=== PATIENT | female | born 1975 | race Caucasian/White ===

== ENCOUNTER 2016-03-18 10:53 | Emergency (ER) | payer MEDICARE, MEDICAID ==
[~2016-03-18 10:53] MED LIST: /ACETCOD2T PO; ABIL10TA; ABIL10TA OR; ABIL5TAB; AMOX500T PO; ASPI81CH PO; COLA50CA3 PO; DRIS1CAP PO; GLUC500T PO; HYDR25TA8; LITHIUM PO; NO HOME MEDICATIONS; No Home Meds; PRIL20CA OR; TOPA100T PO; TRAZ100T; TRAZ100T OR; VITAMIN D50000 UNT; ZOLO100T; no home medications; no home meds
[2016-03-18] MEDS ORDERED: LIDOCAINE 2% MDV 20 ML VIAL As Ordered ONE (11:25)
--- NOTE | 2016-03-18 11:59 | EDDOCDS ---
Physician Documentation [facility] Name: Carla Ramirez Age: 40 yrs Sex: Female : 1975 Arrival Date: 03/18/2016 Time: 10:53 Bed TR8 Private MD: Disposition: 03/18/16 11:58 Patient has left against medical advice. - Patients states they are going to Home/Self Care. - Condition is Stable. Medication Reconciliation, Local Pharmacy Hours form. Follow up: Private Physician; When: Call to arrange an appointment; Reason: Recheck today's complaints. Historical: - Allergies: no known allergies; - Home Meds: 1. none - PMHx: Bipolar disorder; Depression; Migraine Headaches; Obesity; - PSHx: Hernia repair- Umbilical; ; Tonsillectomy; - Social history: Smoking status: Patient uses tobacco products, light tobacco smoker. No barriers to communication noted, The patient speaks fluent Chinese, Speaks appropriately for age. - : The pt / caregiver states he / she is not on anticoagulants. Home medication list is obtained from the patient. - Exposure Risk Screening:: None identified. PRODUCT TESTER: 03/18 10:56 LMP 03/05/2016 bcj Vital Signs: 10:55 BP 189 / 105; Pulse 99; Resp 18; Temp 98.0; Pulse Ox 98% ; Weight 113.4 kg / 250 lbs; elp Height 5 ft. 2 in. (157.48 cm); Pain 10/10; 10:55 Body Mass Index 45.73 (113.40 kg, 157.48 cm) elp MDM: 11:16 Recheck B/P ordered. ef1 11:16 Misc. Nursing Order ordered. ef1 11:24 Lidocaine 20 mg/mL (2 %) 10 ml Infiltration once; to bedside ordered. jk8 Administered Medications: 11:26 Drug: Lidocaine 10 ml [lidocaine 20 mg/mL (2 %) injection solution (10 mL)] {Note: bcj administered by PA.} Route: Infiltration; Signatures: Mukund Aviles, RN RN Keri Montoya PA-C PA-C ef1 Annelise Jackson RN RN ms18 Bryan Razo PA-C PA-C jk8 MTDD
--- NOTE | 2016-03-18 11:59 | EDDOCDS ---
Nurse's Notes [facility] Name: Carla Ramirez Age: 40 yrs Sex: Female : 1975 Arrival Date: 03/18/2016 Time: 10:53 Bed TR8 Private MD: Diagnosis: Presentation: 03/18 10:55 Presenting complaint: Patient states: c/o left sided tooth pain - hurts to chew on same bcj side. part of tooth broken off. Adult Sepsis Screening: The patient does not have new or worsening altered mentation. Patient's respiratory rate is less than 22. Systolic blood pressure is greater than 100. Patient has a qSOFA score of 0- Negative Sepsis Screen. Suicide/Homicide risk assessment- the patient denies having any suicidal and/or homicidal ideations and does not present with any other emotional, behavioral or mental health complaints. Status: Patient is not a multimedia services manager or dependent. Transition of care: patient was not received from another setting of care. 10:55 Acuity: MONALISA Level 5 bcj 10:55 Method Of Arrival: Walkin/Carried/Asstd bcj Triage Assessment: 10:56 General: Appears uncomfortable, Behavior is cooperative. Pain: Location: mouth Pain bcj currently is 10 out of 10 on a pain scale. HIV screening NA for this visit Offered previously. EENT: Reports pain in mouth. HARBOUR MASTER: 10:56 LMP 03/05/2016 bcj Historical: - Allergies: no known allergies; - Home Meds: 1. none - PMHx: Bipolar disorder; Depression; Migraine Headaches; Obesity; - PSHx: Hernia repair- Umbilical; ; Tonsillectomy; - Social history: Smoking status: Patient uses tobacco products, light tobacco smoker. No barriers to communication noted, The patient speaks fluent Latvian, Speaks appropriately for age. - : The pt / caregiver states he / she is not on anticoagulants. Home medication list is obtained from the patient. - Exposure Risk Screening:: None identified. Assessment: 11:56 General: Appears obese, uncomfortable. Pain: Location: mouth. Neurological: No deficits ms18 noted. Respiratory: No deficits noted. Derm: Skin is pink, warm & dry. Vital Signs: 10:55 BP 189 / 105; Pulse 99; Resp 18; Temp 98.0; Pulse Ox 98% ; Weight 113.4 kg; Height 5 elp ft. 2 in. (157.48 cm); Pain 12/12; 10:55 Body Mass Index 45.73 (113.40 kg, 157.48 cm) [facility] Vitals: 10:55 Log In Time: March 18, 2016 at 10:[address]. [facility] ED Course: 10:54 Patient visited by Meche Ruiz PCA. elp 10:54 Patient moved to Waiting elp 10:55 Patient visited by Meche Ruiz PCA. elp 10:55 Patient moved to Pre RCE elp 10:56 Triage Initiated [facility] 10:57 Patient visited by Mukund Aviles RN. bcj 11:03 Patient moved to Triage 1 rs6 11:15 Keri Olivo PA-C is PHCP. ef1 11:15 Audelia Albrecht MD is Attending Physician. ef1 11:16 Patient visited by Keri Olivo PA-C. ef1 11:22 Pt greeted and oriented to ED. Patient advised of names of staff involved in care, rs6 location of call dyer, wait times and NPO status. attempted to recheck pt's blood pressure manually and pt ripped the cuff off of her arm screaming to "give me something for the fucking pain and to get me some pain medicine for her pain" RONNIE Olivo notified. 11:23 Bryan R[facility]C [facility] jk8 11:23 Audelia Albrecht MD is Attending Physician. jk8 11:55 Patient visited by Annelise Jackson RN. ms18 11:56 Patient moved to 8 ms18 Administered Medications: 11:26 Drug: Lidocaine 10 ml [lidocaine 20 mg/mL (2 %) injection solution (10 mL)] {Note: bcj administered by PA.} Route: Infiltration; Order Results: There are currently no results for this order. Outcome: 11:56 The patient is leaving AMA: Left before signing form, Other notified steaming machine operator and ms18 provider aware of pt leaving ama. 11:58 Patient left against medical advice. ms18 11:58 Patient left the ED. ms18 Signatures: Mukund Aviles RN RN [facility] Keri Olivo PA-C PA-C ef1 Meche Ruiz PCA BALANCE SCREWHEAD POLISHER elp Annelise JacksonYUSEF RN ms18 Yazmin Bates, BALANCE SCREWHEAD POLISHER BALANCE SCREWHEAD POLISHER rs6 Bryan Razo, YEE FRAIRE jk8 MTDD
--- NOTE | 2016-03-20 12:59 | EDDOCDS ---
Physician Documentation [facility] Name: Carla Ramirez Age: 40 yrs Sex: Female : 1975 Arrival Date: 03/18/2016 Time: 10:53 Bed TR8 Private MD: Disposition: 03/18/16 11:58 Patient has left against medical advice. - Patients states they are going to Home/Self Care. - Condition is Stable. Medication Reconciliation, Local Pharmacy Hours form. Follow up: Private Physician; When: Call to arrange an appointment; Reason: Recheck today's complaints. Historical: - Allergies: no known allergies; - Home Meds: 1. none - PMHx: Bipolar disorder; Depression; Migraine Headaches; Obesity; - PSHx: Hernia repair- Umbilical; ; Tonsillectomy; - Social history: Smoking status: Patient uses tobacco products, light tobacco smoker. No barriers to communication noted, The patient speaks fluent Arabic, Speaks appropriately for age. - : The pt / caregiver states he / she is not on anticoagulants. Home medication list is obtained from the patient. - Exposure Risk Screening:: None identified. CARROT BUNCHER: 03/18 10:56 LMP 03/05/2016 [facility] Vital Signs: 10:55 BP 189 / 105; Pulse 99; Resp 18; Temp 98.0; Pulse Ox 98% ; Weight 113.4 kg / 250 lbs; elp Height 5 ft. 2 in. (157.48 cm); Pain 10/10; 10:55 Body Mass Index 45.73 (113.40 kg, 157.48 cm) elp MDM: 11:16 Recheck B/P ordered. ef1 11:16 Misc. Nursing Order ordered. ef1 11:24 Lidocaine 20 mg/mL (2 %) 10 ml Infiltration once; to bedside ordered. jk8 14:46 Refusal of Services was scanned into [employer] and attached to record. gb 03/19 08:36 T-Sheet-- Draft Copy was scanned into [employer] and attached to record. [facility] Administered Medications: 03/18 11:26 Drug: Lidocaine 10 ml [lidocaine 20 mg/mL (2 %) injection solution (10 mL)] {Note: bcj administered by PA.} Route: Infiltration; Signatures: Mukund Aviles RN RN Jahaira Gomes, Reg Reg gb Keri Olivo PA-C PA-C ef1 Annelise Jackson,YUSEF RN ms18 Bryan Razo PA-C PA-C jk8 Audelia Anaya The chart was reviewed and I authenticate all verbal orders and agree with the evaluation and treatment provided.Attachments: 03/19 08:36 T-Sheet-- Draft Copy [facility] Chart Complete MTDD
--- NOTE | 2016-03-20 12:59 | EDDOCDS ---
Physician Documentation [facility] Name: Carla Ramirez Age: 40 yrs Sex: Female : 1975 Arrival Date: 03/18/2016 Time: 10:53 Bed TR8 Private MD: Disposition: 03/18/16 11:58 Patient has left against medical advice. - Patients states they are going to Home/Self Care. - Condition is Stable. Medication Reconciliation, Local Pharmacy Hours form. Follow up: Private Physician; When: Call to arrange an appointment; Reason: Recheck today's complaints. Historical: - Allergies: no known allergies; - Home Meds: 1. none - PMHx: Bipolar disorder; Depression; Migraine Headaches; Obesity; - PSHx: Hernia repair- Umbilical; ; Tonsillectomy; - Social history: Smoking status: Patient uses tobacco products, light tobacco smoker. No barriers to communication noted, The patient speaks fluent Slovak, Speaks appropriately for age. - : The pt / caregiver states he / she is not on anticoagulants. Home medication list is obtained from the patient. - Exposure Risk Screening:: None identified. FISH BUTCHER: 03/18 10:56 LMP 03/05/2016 [facility] Vital Signs: 10:55 BP 189 / 105; Pulse 99; Resp 18; Temp 98.0; Pulse Ox 98% ; Weight 113.4 kg / 250 lbs; elp Height 5 ft. 2 in. (157.48 cm); Pain 10/10; 10:55 Body Mass Index 45.73 (113.40 kg, 157.48 cm) elp MDM: 11:16 Recheck B/P ordered. ef1 11:16 Misc. Nursing Order ordered. ef1 11:24 Lidocaine 20 mg/mL (2 %) 10 ml Infiltration once; to bedside ordered. jk8 14:46 Refusal of Services was scanned into [employer] and attached to record. gb 03/19 08:36 T-Sheet-- Draft Copy was scanned into [employer] and attached to record. [facility] Administered Medications: 03/18 11:26 Drug: Lidocaine 10 ml [lidocaine 20 mg/mL (2 %) injection solution (10 mL)] {Note: bcj administered by PA.} Route: Infiltration; Signatures: Mukund Aviles RN RN Jahaira Gomes, Reg Reg gb Keri Olivo PA-C PA-C ef1 Annelise Jackson,YUSEF RN ms18 Bryan Razo PA-C PA-C jk8 Audelia Anaya The chart was reviewed and I authenticate all verbal orders and agree with the evaluation and treatment provided.Attachments: 03/19 08:36 T-Sheet-- Draft Copy [facility] Chart Complete MTDD
--- NOTE | 2016-03-20 12:59 | EDDOCDS ---
Nurse's Notes [facility] Name: Carla Ramirez Age: 40 yrs Sex: Female : 1975 Arrival Date: 03/18/2016 Time: 10:53 Bed TR8 Private MD: Diagnosis: Presentation: 03/18 10:55 Presenting complaint: Patient states: c/o left sided tooth pain - hurts to chew on same bcj side. part of tooth broken off. Adult Sepsis Screening: The patient does not have new or worsening altered mentation. Patient's respiratory rate is less than 22. Systolic blood pressure is greater than 100. Patient has a qSOFA score of 0- Negative Sepsis Screen. Suicide/Homicide risk assessment- the patient denies having any suicidal and/or homicidal ideations and does not present with any other emotional, behavioral or mental health complaints. Status: Patient is not a service employee or dependent. Transition of care: patient was not received from another setting of care. 10:55 Acuity: MONALISA Level 5 bcj 10:55 Method Of Arrival: Walkin/Carried/Asstd bcj Triage Assessment: 10:56 General: Appears uncomfortable, Behavior is cooperative. Pain: Location: mouth Pain bcj currently is 10 out of 10 on a pain scale. HIV screening NA for this visit Offered previously. EENT: Reports pain in mouth. REGISTERED DIETETIC TECHNICIAN: 10:56 LMP 03/05/2016 bcj Historical: - Allergies: no known allergies; - Home Meds: 1. none - PMHx: Bipolar disorder; Depression; Migraine Headaches; Obesity; - PSHx: Hernia repair- Umbilical; ; Tonsillectomy; - Social history: Smoking status: Patient uses tobacco products, light tobacco smoker. No barriers to communication noted, The patient speaks fluent Faroese, Speaks appropriately for age. - : The pt / caregiver states he / she is not on anticoagulants. Home medication list is obtained from the patient. - Exposure Risk Screening:: None identified. Assessment: 11:56 General: Appears obese, uncomfortable. Pain: Location: mouth. Neurological: No deficits ms18 noted. Respiratory: No deficits noted. Derm: Skin is pink, warm & dry. Vital Signs: 10:55 BP 189 / 105; Pulse 99; Resp 18; Temp 98.0; Pulse Ox 98% ; Weight 113.4 kg; Height 5 elp ft. 2 in. (157.48 cm); Pain 10; 10:55 Body Mass Index 45.73 (113.40 kg, 157.48 cm) [facility] Vitals: 10:55 Log In Time: March 18, 2016 at 10:52. elp ED Course: 10:54 Patient visited by Meche Ruiz PCA. elp 10:54 Patient moved to Waiting elp 10:55 Patient visited by Meche Ruiz PCA. elp 10:55 Patient moved to Pre RCE elp 10:56 Triage Initiated bcj 10:57 Patient visited by Mukund Aviles, YUSEF. bcj 11:03 Patient moved to Triage 1 rs6 11:15 Keri Olivo PA-C is PHCP. ef1 11:15 Audelia Albrecht MD is Attending Physician. ef1 11:16 Patient visited by Keri Olivo PA-C. ef1 11:22 Pt greeted and oriented to ED. Patient advised of names of staff involved in care, rs6 location of call dyer, wait times and NPO status. attempted to recheck pt's blood pressure manually and pt ripped the cuff off of her arm screaming to "give me something for the fucking pain and to get me some pain medicine for her pain" RONNIE Olivo notified. 11:23 Bryan Razo PA-C is PHCP. jk8 11:23 Audelia Albrecht MD is Attending Physician. jk8 11:55 Patient visited by Annelise Jackson RN. ms18 11:56 Patient moved to [facility] ms18 14:46 Refusal of Services was scanned into [employer] and attached to record. gb 03/19 08:36 T-Sheet-- Draft Copy was scanned into [employer] and attached to record. seh Administered Medications: 03/18 11:26 Drug: Lidocaine 10 ml [lidocaine 20 mg/mL (2 %) injection solution (10 mL)] {Note: bcsyed administered by RONNIE.} Route: Infiltration; Attachments: 14:46 Refusal of Services gb Order Results: There are currently no results for this order. Outcome: 03/18 11:56 The patient is leaving AMA: Left before signing form, Other notified cafeteria team leader and ms18 provider aware of pt leaving ama. 11:58 Patient left against medical advice. ms18 11:58 Patient left the ED. ms18 Signatures: Mukund Aviles, RN RN Jahaira Gomes, Tab Reg Keri Benitez, SATYAC PAMiller ef1 Meche Ruiz, AERONAUTICAL ENGINEERING TEACHER AERONAUTICAL ENGINEERING TEACHER elp Annelise Jackson RN RN ms18 Bates, Yazmin, AERONAUTICAL ENGINEERING TEACHER AERONAUTICAL ENGINEERING TEACHER rs6 Bryan Razo, YEE FRAIRE jk8 Audelia Anaya Chart Complete MTDD
== END 2016-03-18 11:58 | disposition left against medical advice (07) ==
LOC: M ED 10:53
DX: K08.89 Other specified disorders of teeth and supporting structures (principal); F31.9 Bipolar disorder, unspecified; G43.909 Migraine, unspecified, not intractable, without status migrainosus; E66.9 Obesity, unspecified; Z90.89 Acquired absence of other organs; F17.200 Nicotine dependence, unspecified, uncomplicated

== ENCOUNTER 2016-03-18 16:23 | Emergency (ER) | payer MEDICARE, MEDICAID ==
[2016-03-18] MEDS ORDERED: NAPROXEN 250 MG TAB As Ordered ONE (18:19)
[2016-03-18] MEDS ORDERED: NORCO, ANEXSIA 5/325MG TABLET (HYDROcodone/ACETAMINOPHEN) As Ordered ONE (18:19)
--- NOTE | 2016-03-18 19:53 | EDDOCDS ---
Physician Documentation [facility] Name: Carla Ramirez Age: 40 yrs Sex: Female : 1975 Arrival Date: 03/18/2016 Time: 16:23 Bed I1 Private MD: NO PRIMARY PHYSICIAN, . Disposition: 03/18 19:23 Critical Care: Critical care not applicable. le Disposition: 03/18/16 19:18 Discharged to Home/Self Care. Impression: Dental caries - with toothache. - Condition is Stable. - Discharge Instructions: Dental Pain. - Prescriptions for Naprosyn 500 mg Oral Tablet - take 1 tablet by ORAL route 2 times per day take with food; 30 tablet. [place] 5- 325 mg Oral Tablet - take 1 tablet by ORAL route every 6 hours As needed MDD: 4 tabs; 6 tablet. - Medication Reconciliation, Local Pharmacy Hours, Dental Referral List form. - Follow up: Your, Dentist; When: Call to arrange an appointment; Reason: Recheck today's complaints, Continuance of care. - Problem is an ongoing problem. - Symptoms have improved. - Notes: Both of these take Medicaid, call them if you cannot find a local dentist that takes medicaid: [facility]: [address] [facility], [address] [place] [address] [facility]: [address] [facility] [phone] Return to the ED for facial swelling, inability to open your mouth more than the width of two fingers, difficulty swallowing/drooling, difficulty breathing, fever or any other concerns that need emergent evaluation Historical: - Allergies: No known drug Allergies; - Home Meds: 1. none - PMHx: Bipolar disorder; Depression; Migraine Headaches; Obesity; - PSHx: Hernia repair- Umbilical; ; Tonsillectomy; - Social history: Smoking status: Patient uses tobacco products, heavy tobacco smoker. No barriers to communication noted, The patient speaks fluent Thai, Speaks appropriately for age. - Family history: Not pertinent. - : The pt / caregiver states he / she is not on anticoagulants. Home medication list is obtained from the patient. - Exposure Risk Screening:: None identified. COUNTER TENDER: 16:32 LMP 03/05/2015 renee Vital Signs: 16:25 BP 223 / 115; Pulse 94; Resp 20; Temp 98.9; Pulse Ox 98% ; Weight 113.4 kg / 250 lbs; elp Height 5 ft. 2 in. (157.48 cm); Pain 10/10; 16:25 BP 205 / 104; elp 18:23 BP 164 / 79; Pulse 89; Resp 20 S; Pain 8/10; ms2 19:32 BP 168 / 95 RA Sitting; Pulse 84; Resp 18 S; Temp 97.8(TE); Pulse Ox 96% on R/A; Pain af2 1/10; 16:25 Body Mass Index 45.73 (113.40 kg, 157.48 cm) elp MDM: 18:08 HYDROcodone-acetaminophen 5 mg-325 mg 1 tabs PO once ordered. le 18:08 Naproxen 500 mg PO once; administer with food or milk ordered. le 18:09 Misc. Nursing Order ordered. le 18:42 Financial registration complete. zo 18:47 [facility] Payment Agreement was scanned into [employer] and attached to record. zo Administered Medications: 18:25 Drug: HYDROcodone-acetaminophen 1 tabs [hydrocodone 5 mg-acetaminophen 325 mg tablet (1 ms2 tabs)] Route: PO; 18:25 Drug: Naproxen 500 mg [naproxen 250 mg tablet (2 tabs)] Route: PO; ms2 Signatures: Jeff Elder Lisa, REAL ESTATE PROFESSIONAL REAL ESTATE PROFESSIONAL Ruperto NdiayeRN RN Pamela Delgado RN RN af2 Wilman Smith RN ms2 The chart was reviewed and I authenticate all verbal orders and agree with the evaluation and treatment provided.Attachments: 18:47 [facility] Payment Agreement zo MTDD
--- NOTE | 2016-03-18 19:53 | EDDOCDS ---
Nurse's Notes [facility] Name: Carla Ramirez Age: 40 yrs Sex: Female : 1975 Arrival Date: 03/18/2016 Time: 16:23 Bed I1 Private MD: NO PRIMARY PHYSICIAN, . Diagnosis: Dental caries-with toothache Presentation: 03/18 16:31 Presenting complaint: Patient states: Patient reports tooth pain. Patient reports pain jmb present, has been seeing dentist but doesn't do anything. Adult Sepsis Screening: The patient does not have new or worsening altered mentation. Patient's respiratory rate is less than 22. Systolic blood pressure is greater than 100. Patient has a qSOFA score of 0- Negative Sepsis Screen. Suicide/Homicide risk assessment- the patient denies having any suicidal and/or homicidal ideations and does not present with any other emotional, behavioral or mental health complaints. Status: Patient is not a utilities service investigator or dependent. Transition of care: patient was not received from another setting of care. 16:31 Acuity: MONALISA Level 4 jmb 16:31 Method Of Arrival: Walkin/Carried/Asstd b 16:33 Presenting complaint: Patient states: Patient reports that the pain medication jmb administered at earlier visit wore off and she "needs something now". Triage Assessment: 16:32 General: Appears uncomfortable, Behavior is appropriate for age. Pain: Location: mouth jmb Pain currently is 9 out of 10 on a pain scale. HIV screening NA for this visit Offered previously. Neurological: Level of Consciousness is awake, alert, obeys commands, Oriented to person, place, time, Speech is normal, Facial symmetry appears normal, Facial symmetry: tongue is midline. EENT: Reports pain Pain is 9 out of 10 on a pain scale. Respiratory: Airway is patent Respiratory effort is even, unlabored, Respiratory pattern is regular, symmetrical. Derm: Skin is pink, warm & dry. Musculoskeletal: Range of motion intact in all extremities. PACKAGE DELIVERY DRIVER: 16:32 LMP 03/05/2015 jmb Historical: - Allergies: No known drug Allergies; - Home Meds: 1. none - PMHx: Bipolar disorder; Depression; Migraine Headaches; Obesity; - PSHx: Hernia repair- Umbilical; ; Tonsillectomy; - Social history: Smoking status: Patient uses tobacco products, heavy tobacco smoker. No barriers to communication noted, The patient speaks fluent Greek, Speaks appropriately for age. - Family history: Not pertinent. - : The pt / caregiver states he / she is not on anticoagulants. Home medication list is obtained from the patient. - Exposure Risk Screening:: None identified. Screenin:25 Screening information is obtained from prior medical records. Fall risk: No risks ms2 identified. Assistance ADL's: requires no assistance with activities of daily living. Abuse/DV Screen: The patient / caregiver reports he/she is: not in a situation that causes fear, pain or injury. Nutritional screening: No deficits noted. Advance Directives: Currently, there is no health care proxy. There is no active DNR order. There is no living will. There is no Power of Senior Teller. Advance directive information has not previously been placed in an [facility] medical record. Further advance directive information is declined. home support is adequate. Assessment: 18:23 General: Appears uncomfortable, Behavior is cooperative. Pain: Pain currently is 8 out ms2 of 10 on a pain scale. Neurological: Level of Consciousness is awake, alert, obeys commands. Respiratory: No deficits noted. Airway is patent Respiratory effort is even, unlabored, Respiratory pattern is regular, symmetrical. Derm: Skin is pink, warm & dry. Musculoskeletal: Range of motion intact in all extremities. 19:32 General: Appears in no apparent distress, Behavior is cooperative. Neurological: Level af2 of Consciousness is awake, alert, obeys commands. Respiratory: Airway is patent Respiratory effort is even, unlabored. Derm: Skin is normal. Vital Signs: 16:25 BP 223 / 115; Pulse 94; Resp 20; Temp 98.9; Pulse Ox 98% ; Weight 113.4 kg; Height 5 elp ft. 2 in. (157.48 cm); Pain 10/10; 16:25 BP 205 / 104; elp 18:23 BP 164 / 79; Pulse 89; Resp 20 S; Pain 8/10; ms2 19:32 BP 168 / 95 RA Sitting; Pulse 84; Resp 18 S; Temp 97.8(TE); Pulse Ox 96% on R/A; Pain af2 1/10; 16:25 Body Mass Index 45.73 (113.40 kg, 157.48 cm) elp Vitals: 16:25 Log In Time N/A - ambulance arrival. elp ED Course: 16:24 Patient visited by Meche Ruiz PCA. elp 16:24 NO PRIMARY PHYSICIAN, . is Private Physician. elp 16:24 Patient moved to Waiting elp 16:26 Patient visited by Meche Ruiz PCA. elp 16:26 Patient moved to Pre RCE elp 16:31 Triage Initiated jmb 17:50 Sparkle Conner FNP is [facility]. le 17:50 Patient moved to I10 / 23 mlb1 17:58 Patient visited by Sparkle Conner FNP. le 17:59 Patient visited by Sparkle Conner FNP. le 18:17 Patient visited by Wilman Smith RN. ms2 18:23 Patient visited by Wilman Smith RN. ms2 18:24 The patient / caregiver is instructed regarding the plan of care and ED course. ms2 18:24 No IV's were initiated during this patient's visit. No procedures done that require ms2 assistance. 18:47 [facility] Payment Agreement was scanned into [employer] and attached to record. zo 19:17 Your, Dentist is Referral Physician. le 19:34 Patient visited by Pamela Galicia RN. af2 Administered Medications: 18:25 Drug: HYDROcodone-acetaminophen 1 tabs [hydrocodone 5 mg-acetaminophen 325 mg tablet (1 ms2 tabs)] Route: PO; 18:25 Drug: Naproxen 500 mg [naproxen 250 mg tablet (2 tabs)] Route: PO; ms2 Order Results: There are currently no results for this order. Outcome: 19:18 Discharge ordered by Provider. le 19:33 Discharge Assessment: Patient awake, alert and oriented x 3. No cognitive and/or af2 functional deficits noted. Patient verbalized understanding of disposition instructions. patient administered narcotics - no. The following High Risk Discharge criteria are identified: None. Discharged to home ambulatory. Condition: stable. Discharge instructions given to patient, Instructed on discharge instructions, follow up and referral plans. medication usage, no driving heavy equipment, no drinking with medication, Demonstrated understanding of instructions, medications, Pt was receptive of discharge instructions/ teaching. No special radiology studies were completed. Property :Personal belongings accompany Pt. 19:53 Patient left the ED. af2 Signatures: Wilman Smith RN RN ms2 Brady Redd, RN RN mlb1 Jeff Elder Lisa, SCHOOL BUS DRIVER SCHOOL BUS DRIVER Meche Pugh, CINTHIA MATE SHIP Ruperto Ramos,RN RN tripb Pamela Galicia,RN RN af2 MTDD
--- NOTE | 2016-03-20 20:53 | EDDOCDS ---
Nurse's Notes [facility] Name: Carla Ramirez Age: 40 yrs Sex: Female : 1975 Arrival Date: 03/18/2016 Time: 16:23 Bed I1 Private MD: NO PRIMARY PHYSICIAN, . Diagnosis: Dental caries-with toothache Presentation: 03/18 16:31 Presenting complaint: Patient states: Patient reports tooth pain. Patient reports pain jmb present, has been seeing dentist but doesn't do anything. Adult Sepsis Screening: The patient does not have new or worsening altered mentation. Patient's respiratory rate is less than 22. Systolic blood pressure is greater than 100. Patient has a qSOFA score of 0- Negative Sepsis Screen. Suicide/Homicide risk assessment- the patient denies having any suicidal and/or homicidal ideations and does not present with any other emotional, behavioral or mental health complaints. Status: Patient is not a center customer service associate or dependent. Transition of care: patient was not received from another setting of care. 16:31 Acuity: MONALISA Level 4 jmb 16:31 Method Of Arrival: Walkin/Carried/Asstd b 16:33 Presenting complaint: Patient states: Patient reports that the pain medication jmb administered at earlier visit wore off and she "needs something now". Triage Assessment: 16:32 General: Appears uncomfortable, Behavior is appropriate for age. Pain: Location: mouth jmb Pain currently is 9 out of 10 on a pain scale. HIV screening NA for this visit Offered previously. Neurological: Level of Consciousness is awake, alert, obeys commands, Oriented to person, place, time, Speech is normal, Facial symmetry appears normal, Facial symmetry: tongue is midline. EENT: Reports pain Pain is 9 out of 10 on a pain scale. Respiratory: Airway is patent Respiratory effort is even, unlabored, Respiratory pattern is regular, symmetrical. Derm: Skin is pink, warm & dry. Musculoskeletal: Range of motion intact in all extremities. 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 none - PMHx: Bipolar disorder; Depression; Migraine Headaches; Obesity; - PSHx: Hernia repair- Umbilical; ; Tonsillectomy; - Social history: Smoking status: Patient uses tobacco products, heavy tobacco smoker. No barriers to communication noted, The patient speaks fluent Kazakh, Speaks appropriately for age. - Family history: Not pertinent. - : The pt / caregiver states he / she is not on anticoagulants. Home medication list is obtained from the patient. - Exposure Risk Screening:: None identified. Screenin:25 Screening information is obtained from prior medical records. Fall risk: No risks ms2 identified. Assistance ADL's: requires no assistance with activities of daily living. Abuse/DV Screen: The patient / caregiver reports he/she is: not in a situation that causes fear, pain or injury. Nutritional screening: No deficits noted. Advance Directives: Currently, there is no health care proxy. There is no active DNR order. There is no living will. There is no Power of Business Process Consultant. Advance directive information has not previously been placed in an [facility] medical record. Further advance directive information is declined. home support is adequate. Assessment: 18:23 General: Appears uncomfortable, Behavior is cooperative. Pain: Pain currently is 8 out ms2 of 10 on a pain scale. Neurological: Level of Consciousness is awake, alert, obeys commands. Respiratory: No deficits noted. Airway is patent Respiratory effort is even, unlabored, Respiratory pattern is regular, symmetrical. Derm: Skin is pink, warm & dry. Musculoskeletal: Range of motion intact in all extremities. 19:32 General: Appears in no apparent distress, Behavior is cooperative. Neurological: Level af2 of Consciousness is awake, alert, obeys commands. Respiratory: Airway is patent Respiratory effort is even, unlabored. Derm: Skin is normal. Vital Signs: 16:25 BP 223 / 115; Pulse 94; Resp 20; Temp 98.9; Pulse Ox 98% ; Weight 113.4 kg; Height 5 elp ft. 2 in. (157.48 cm); Pain 10/10; 16:25 BP 205 / 104; elp 18:23 BP 164 / 79; Pulse 89; Resp 20 S; Pain 8/10; ms2 19:32 BP 168 / 95 RA Sitting; Pulse 84; Resp 18 S; Temp 97.8(TE); Pulse Ox 96% on R/A; Pain af2 1/10; 16:25 Body Mass Index 45.73 (113.40 kg, 157.48 cm) elp Vitals: 16:25 Log In Time N/A - ambulance arrival. elp ED Course: 16:24 Patient visited by Mehce Ruiz PCA. elp 16:24 NO PRIMARY PHYSICIAN, . is Private Physician. elp 16:24 Patient moved to Waiting elp 16:26 Patient visited by Meche Ruiz PCA. elp 16:26 Patient moved to Pre RCE elp 16:31 Triage Initiated jmb 17:50 Sparkle Conner FNP is PHCP. le 17:50 Patient moved to I10 / 23 mlb1 17:58 Patient visited by Sparkle Conner FNP. le 17:59 Patient visited by Sparkle Conner FNP. le 18:17 Patient visited by Wilman Smith,YUSEF. ms2 18:23 Patient visited by Wilman Smith RN. ms2 18:24 The patient / caregiver is instructed regarding the plan of care and ED course. ms2 18:24 No IV's were initiated during this patient's visit. No procedures done that require ms2 assistance. 18:47 [facility] Payment Agreement was scanned into [employer] and attached to record. zo 19:17 Your, Dentist is Referral Physician. le 19:34 Patient visited by Pamela Galicia RN. af2 22:05 T-Sheet-- Draft Copy was scanned into [employer] and attached to record. klr Administered Medications: 18:25 Drug: HYDROcodone-acetaminophen 1 tabs [hydrocodone 5 mg-acetaminophen 325 mg tablet (1 ms2 tabs)] Route: PO; 18:25 Drug: Naproxen 500 mg [naproxen 250 mg tablet (2 tabs)] Route: PO; ms2 Order Results: There are currently no results for this order. Outcome: 19:18 Discharge ordered by Provider. le 19:33 Discharge Assessment: Patient awake, alert and oriented x 3. No cognitive and/or af2 functional deficits noted. Patient verbalized understanding of disposition instructions. patient administered narcotics - no. The following High Risk Discharge criteria are identified: None. Discharged to home ambulatory. Condition: stable. Discharge instructions given to patient, Instructed on discharge instructions, follow up and referral plans. medication usage, no driving heavy equipment, no drinking with medication, Demonstrated understanding of instructions, medications, Pt was receptive of discharge instructions/ teaching. No special radiology studies were completed. Property :Personal belongings accompany Pt. 19:53 Patient left the ED. af2 Signatures: Wilman Smith,RN RN ms2 Brady Redd, RN RN mlb1 Jeff Elder Lisa, COMMUNICATIONS EQUIPMENT SUPERVISOR COMMUNICATIONS EQUIPMENT SUPERVISOR Meche Pugh, CROSS TIE TURNER CROSS TIE TURNER elp Ruperto Lowery,RN RN Pamela DelgadoRN RN af2 Gwen Pedraza Chart Complete MTDD
--- NOTE | 2016-03-20 20:53 | EDDOCDS ---
Physician Documentation [facility] Name: Carla Ramirez Age: 40 yrs Sex: Female : 1975 Arrival Date: 03/18/2016 Time: 16:23 Bed I1 Private MD: NO PRIMARY PHYSICIAN, . Disposition: 03/18 19:23 Critical Care: Critical care not applicable. le Disposition: 03/18/16 19:18 Discharged to Home/Self Care. Impression: Dental caries - with toothache. - Condition is Stable. - Discharge Instructions: Dental Pain. - Prescriptions for Naprosyn 500 mg Oral Tablet - take 1 tablet by ORAL route 2 times per day take with food; 30 tablet. [place] 5- 325 mg Oral Tablet - take 1 tablet by ORAL route every 6 hours As needed MDD: 4 tabs; 6 tablet. - Medication Reconciliation, Local Pharmacy Hours, Dental Referral List form. - Follow up: Your, Dentist; When: Call to arrange an appointment; Reason: Recheck today's complaints, Continuance of care. - Problem is an ongoing problem. - Symptoms have improved. - Notes: Both of these take Medicaid, call them if you cannot find a local dentist that takes medicaid: [facility]: [address] [facility], [address] [place] [address] [facility]: [address] [facility] [phone] Return to the ED for facial swelling, inability to open your mouth more than the width of two fingers, difficulty swallowing/drooling, difficulty breathing, fever or any other concerns that need emergent evaluation Historical: - Allergies: No known drug Allergies; - Home Meds: 1. none - PMHx: Bipolar disorder; Depression; Migraine Headaches; Obesity; - PSHx: Hernia repair- Umbilical; ; Tonsillectomy; - Social history: Smoking status: Patient uses tobacco products, heavy tobacco smoker. No barriers to communication noted, The patient speaks fluent Latvian, Speaks appropriately for age. - Family history: Not pertinent. - : The pt / caregiver states he / she is not on anticoagulants. Home medication list is obtained from the patient. - Exposure Risk Screening:: None identified. 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 2 in. (157.48 cm); Pain 10/10; 16:25 BP 205 / 104; elp 18:23 BP 164 / 79; Pulse 89; Resp 20 S; Pain 8/10; ms2 19:32 BP 168 / 95 RA Sitting; Pulse 84; Resp 18 S; Temp 97.8(TE); Pulse Ox 96% on R/A; Pain af2 1/10; 16:25 Body Mass Index 45.73 (113.40 kg, 157.48 cm) elp MDM: 18:08 HYDROcodone-acetaminophen 5 mg-325 mg 1 tabs PO once ordered. le 18:08 Naproxen 500 mg PO once; administer with food or milk ordered. le 18:09 Misc. Nursing Order ordered. le 18:42 Financial registration complete. zo 18:47 [facility] Payment Agreement was scanned into [employer] and attached to record. zo 22:05 T-Sheet-- Draft Copy was scanned into [employer] and attached to record. klr Administered Medications: 18:25 Drug: HYDROcodone-acetaminophen 1 tabs [hydrocodone 5 mg-acetaminophen 325 mg tablet (1 ms2 tabs)] Route: PO; 18:25 Drug: Naproxen 500 mg [naproxen 250 mg tablet (2 tabs)] Route: PO; ms2 Signatures: Jeff Elder Lisa, DISPENSING OPTICIAN Ruperto Ross RN RN jmb Fulton, Amber, RN RN af2 Redder, Kathie klr Sobkiewicz, Michele RN ms2 The chart was reviewed and I authenticate all verbal orders and agree with the evaluation and treatment provided.Attachments: 18:47 [facility] Payment Agreement zo 22:05 T-Sheet-- Draft Copy klr Chart Complete MTDD
--- NOTE | 2016-03-20 20:53 | EDDOCDS ---
Physician Documentation [facility] Name: Carla Ramirez Age: 40 yrs Sex: Female : 1975 Arrival Date: 03/18/2016 Time: 16:23 Bed I1 Private MD: NO PRIMARY PHYSICIAN, . Disposition: 03/18 19:23 Critical Care: Critical care not applicable. le Disposition: 03/18/16 19:18 Discharged to Home/Self Care. Impression: Dental caries - with toothache. - Condition is Stable. - Discharge Instructions: Dental Pain. - Prescriptions for Naprosyn 500 mg Oral Tablet - take 1 tablet by ORAL route 2 times per day take with food; 30 tablet. [place] 5- 325 mg Oral Tablet - take 1 tablet by ORAL route every 6 hours As needed MDD: 4 tabs; 6 tablet. - Medication Reconciliation, Local Pharmacy Hours, Dental Referral List form. - Follow up: Your, Dentist; When: Call to arrange an appointment; Reason: Recheck today's complaints, Continuance of care. - Problem is an ongoing problem. - Symptoms have improved. - Notes: Both of these take Medicaid, call them if you cannot find a local dentist that takes medicaid: [facility]: [address] [facility], [address] [place] [address] [facility]: [address] [facility] [phone] Return to the ED for facial swelling, inability to open your mouth more than the width of two fingers, difficulty swallowing/drooling, difficulty breathing, fever or any other concerns that need emergent evaluation Historical: - Allergies: No known drug Allergies; - Home Meds: 1. none - PMHx: Bipolar disorder; Depression; Migraine Headaches; Obesity; - PSHx: Hernia repair- Umbilical; ; Tonsillectomy; - Social history: Smoking status: Patient uses tobacco products, heavy tobacco smoker. No barriers to communication noted, The patient speaks fluent Uzbek, Speaks appropriately for age. - Family history: Not pertinent. - : The pt / caregiver states he / she is not on anticoagulants. Home medication list is obtained from the patient. - Exposure Risk Screening:: None identified. 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 2 in. (157.48 cm); Pain 10/10; 16:25 BP 205 / 104; elp 18:23 BP 164 / 79; Pulse 89; Resp 20 S; Pain 8/10; ms2 19:32 BP 168 / 95 RA Sitting; Pulse 84; Resp 18 S; Temp 97.8(TE); Pulse Ox 96% on R/A; Pain af2 1/10; 16:25 Body Mass Index 45.73 (113.40 kg, 157.48 cm) elp MDM: 18:08 HYDROcodone-acetaminophen 5 mg-325 mg 1 tabs PO once ordered. le 18:08 Naproxen 500 mg PO once; administer with food or milk ordered. le 18:09 Misc. Nursing Order ordered. le 18:42 Financial registration complete. zo 18:47 [facility] Payment Agreement was scanned into [employer] [place] and attached to record. zo 22:05 T-Sheet-- Draft Copy was scanned into [employer] [place] and attached to record. klr Administered Medications: 18:25 Drug: HYDROcodone-acetaminophen 1 tabs [hydrocodone 5 mg-acetaminophen 325 mg tablet (1 ms2 tabs)] Route: PO; 18:25 Drug: Naproxen 500 mg [naproxen 250 mg tablet (2 tabs)] Route: PO; ms2 Signatures: Jeff Elder Lisa, SHADOWGRAPH SCALE OPERATOR Ruperto Ross RN RN jmb Fulton, Amber, RN RN af2 Redder, Kathie klr Sobkiewicz, Michele RN ms2 The chart was reviewed and I authenticate all verbal orders and agree with the evaluation and treatment provided.Attachments: 18:47 [facility] Payment Agreement zo 22:05 T-Sheet-- Draft Copy klr Chart Complete MTDD
== END 2016-03-18 19:53 | disposition home or self-care (01) ==
LOC: M ED 16:23
DX: K02.9 Dental caries, unspecified (principal); K08.89 Other specified disorders of teeth and supporting structures; F31.9 Bipolar disorder, unspecified; G43.909 Migraine, unspecified, not intractable, without status migrainosus; E66.9 Obesity, unspecified; F17.200 Nicotine dependence, unspecified, uncomplicated

== ENCOUNTER 2016-03-21 17:13 | Emergency (ER) | payer MEDICARE, MEDICAID | END 2016-03-21 19:17 | disposition left against medical advice (07) | LOC: M ED 17:13 | DX: K08.89 Other specified disorders of teeth and supporting structures (principal); Z53.20 Procedure and treatment not carried out because of patient's decision for unspecified reasons ==

== ENCOUNTER 2016-04-04 03:09 | Emergency (ER) | payer MEDICARE, MEDICAID | END 2016-04-04 03:10 | disposition left against medical advice (07) | LOC: M ED 03:09 | DX: K08.9 Disorder of teeth and supporting structures, unspecified (principal); Z53.21 Procedure and treatment not carried out due to patient leaving prior to being seen by health care provider ==

== ENCOUNTER 2016-05-30 23:15 | Emergency (ER) | payer MEDICARE, MEDICAID ==
[~2016-05-30] VITALS: Ht 157.5 cm; Wt 113.4 kg
[2016-05-30 23:16] VITALS: BP 163/90
== END 2016-05-31 00:48 | disposition left against medical advice (07) ==
LOC: M ED 05-31 00:15
DX: K08.89 Other specified disorders of teeth and supporting structures (principal); Z53.21 Procedure and treatment not carried out due to patient leaving prior to being seen by health care provider

== ENCOUNTER 2016-06-10 07:15 | Emergency (ER) | payer MEDICARE, MEDICAID ==
[~2016-06-10] VITALS: Ht 157.5 cm; Wt 113.4 kg
[2016-06-10 07:35] VITALS: BP 190/100
[2016-06-10] MEDS ORDERED: PROC25SU24 PR (13:20)
[2016-06-10] MEDS ORDERED: BENT10CA PO (13:20)
[2016-06-10] MEDS ORDERED: METF500T PO (13:21)
== END 2016-06-10 08:01 | disposition left against medical advice (07) ==
LOC: M ED 07:59
DX: R10.9 Unspecified abdominal pain (principal); Z53.21 Procedure and treatment not carried out due to patient leaving prior to being seen by health care provider

== ENCOUNTER 2016-06-10 09:06 | Emergency (ER) | payer MEDICARE, MEDICAID ==
[~2016-06-10] VITALS: Ht 170.2 cm; Wt 127.5 kg
[2016-06-10] MEDS ORDERED: PROMETHAZINE INJ 25 MG/ML VIAL (J2550) IM ONE (10:45)
[2016-06-10 12:18] LABS: ANION GAP 13 MEQ/L (8-16); BLOOD UREA NITROGEN 14 MG/DL (7-18); CARBON DIOXIDE LEVEL 23 MEQ/L (21-32); CHLORIDE LEVEL 100 MEQ/L (98-107); CREATININE FOR GFR 0.72 MG/DL (0.55-1.02); GLOMERULAR FILTRATION RATE > 60.0 (>58); GLUCOSE, FASTING 357 MG/DL (70-105); POTASSIUM SERUM 4.6 MEQ/L (3.5-5.1); SODIUM LEVEL 136 MEQ/L (136-145)
[2016-06-10] MEDS ORDERED: KETOROLAC 30 MG/ML VIAL (J1885) IV ONE (12:45)
[2016-06-10] MEDS ORDERED: PROC25SU24 PR (13:20)
[2016-06-10] MEDS ORDERED: BENT10CA PO (13:20)
[2016-06-10] MEDS ORDERED: METF500T PO (13:21)
[2016-06-10 13:54] VITALS: BP 138/82
== END 2016-06-10 14:11 | disposition home or self-care (01) ==
LOC: EDBD 09:06 → M ED 10:59
DX: E11.43 Type 2 diabetes mellitus with diabetic autonomic (poly)neuropathy (principal); R11.2 Nausea with vomiting, unspecified; R10.9 Unspecified abdominal pain; G89.29 Other chronic pain; F17.200 Nicotine dependence, unspecified, uncomplicated; Z91.013 Allergy to seafood; Z91.018 Allergy to other foods

== ENCOUNTER 2016-06-12 08:41 | Inpatient (IN) | payer MEDICARE, MEDICAID ==
[~2016-06-12] VITALS: Ht 157.5 cm; Wt 135.6 kg
[~2016-06-12 08:41] MED LIST changes: +BENT10CA PO; +METF500T PO; +PROC25SU24 PR
[2016-06-12] MEDS ORDERED: DICYCLOMINE INJ 20MG/2ML (J0500) IM ONE (09:15)
[2016-06-12] MEDS ORDERED: NS 1,000 ML IV ONE (09:15)
[2016-06-12] MEDS ORDERED: KETOROLAC 30 MG/ML VIAL (J1885) IV ONE (09:15)
[2016-06-12] MEDS ORDERED: METOCLOPRAMIDE INJ 10MG/2ML VIAL (J2765) IV ONE (09:15)
[2016-06-12 09:49] LABS: BASO % 0.4 % (0.0-1.0); EOS # 0.1 K/mm3 (0.0-0.50); EOS % 1.5 % (0.0-3.0); LARGE UNSTAINED CELL # 0.1 K/mm3 (0.0-0.4); LARGE UNSTAINED CELL % 1.2 % (0.0-4.0); LYMPH # 1.5 K/mm3 (1.5-4.5); LYMPH % 16.9 % (24.0-44.0); MEAN CORPUSCULAR HEMOGLOBIN 28.8 pg (27.0-33.0); MEAN CORPUSCULAR HGB CONC 32.9 g/dl (32.0-36.5); MEAN CORPUSCULAR VOLUME 87.5 fl (80.0-96.0); MONO # 0.5 K/mm3 (0.0-0.8); MONO % 6.1 % (0.0-5.0); NEUTROPHILS # 6.1 K/mm3 (1.8-7.7); NEUTROPHILS % 73.9 % (36.0-66.0); PLATELET COUNT, AUTOMATED 428 k/mm3 (150-450); RED CELL DISTRIBUTION WIDTH 12.9 % (11.5-14.5); WHITE BLOOD COUNT 8.3 K/mm3 (4.0-10.0)
[2016-06-12 10:10] LABS: CONTROL LINE HCG INT CTR LINE PRESENT
[2016-06-12] MEDS ORDERED: ISOVUE-370 76% 100ML VIAL (Q9967) As Ordered ONE (10:14)
[2016-06-12 10:18] LABS: ALBUMIN 3.5 GM/DL (3.2-5.2); ALBUMIN/GLOBULIN RATIO 0.83 (1.00-1.93); ALKALINE PHOSPHATASE 95 U/L (45-117); ALT/SGPT 20 U/L (12-78); AMYLASE 17 U/L (25-115); ANION GAP 14 MEQ/L (8-16); AST/SGOT 8 U/L (15-37); BILIRUBIN,DIRECT 0.1 MG/DL (0.0-0.2); BILIRUBIN,TOTAL 0.8 MG/DL (0.2-1.0); BLOOD UREA NITROGEN 19 MG/DL (7-18); CALCIUM LEVEL 8.9 MG/DL (8.5-10.1); CARBON DIOXIDE LEVEL 23 MEQ/L (21-32); CHLORIDE LEVEL 95 MEQ/L (98-107); CREATININE FOR GFR 0.75 MG/DL (0.55-1.02); GLOMERULAR FILTRATION RATE > 60.0 (>58); GLUCOSE, FASTING 331 MG/DL (70-105); POTASSIUM SERUM 3.8 MEQ/L (3.5-5.1); SODIUM LEVEL 132 MEQ/L (136-145); TOTAL PROTEIN 7.7 GM/DL (6.4-8.2)
--- NOTE | 2016-06-12 11:45 | REP ---
CT ABDOMEN PELVIS WITH IV CONTRAST: 06/12/2016 CLINICAL HISTORY: Left upper and left lower quadrant pain. Abdominal hernia, IBS. Fever. COMPARISON: 08/24/2014. FINDINGS: CT ABDOMEN: The lung bases are clear. The heart is not enlarged. There is no pericardial thickening or effusion. Liver is enlarged with a 20 cm vertical diameter of the right lobe in the mid clavicular line. There is no hepatic mass or biliary dilatation. There is no adjacent ascites. No splenomegaly or focal splenic lesion. Gallbladder shows no calcified stone or mass. Adrenal glands without mass or nodule. The kidneys show function without obstruction. The aorta has no aneurysm. No periaortic or other retroperitoneal lymphadenopathy in the abdomen. The pancreas seen and unremarkable. The stomach shows no definite hiatal hernia. Loops of jejunum are distended in the mid and upper abdomen. There is a periumbilical hernia with diastases of the rectus muscles and loops of bowel extending within and particularly in the left side of the hernia is a loop of bowel incarcerated with some thickened wall. This is very similar appearance to previous study. Bowel loops into and out of this hernia are distended. There is a transition zone in the midline on image 121 of the axial images. There is no generalized ascites. I see no free air or perforation nor evidence for abscess. The distal small bowel loops are intact in caliber. There is a some stranding in the peroneal gutters. Colon shows no sign of colitis or diverticulitis. There is no colonic loop herniated. No mass or stricture in the colon. Bones show degenerative facet changes in the lower lumbar spine, vertebral bodies and lumbar lower thoracic region with minimal degenerative change and no compression fracture. Ribs intact. CT PELVIS: Bilateral hips are symmetric. The iliac wings, acetabuli, ischia are all symmetric. There is minor sclerotic changes at the SI joints without erosion. Sacrum intact. In the pelvis, the uterus is anteverted and has a lobulated contour and exophytic calcified fibroid noted anteriorly. This also exophytic fibroid posterior laterally on the left. The bladder only partially filled without mass or stone. No hydronephrosis, hydroureter or ureteral stone. No free fluid in the deep pelvis. Diverticulosis of the distal left colon and proximal sigmoid noted without diverticulitis. The ileocecal valve is intact. Some mild edema of the terminal ileum and slightly thickened wall but no stricture, mass, or dilated loop of ileum or other acute finding. No inguinal hernia or inguinal adenopathy. IMPRESSION: 1. Fairly large midline periumbilical ventral hernia is again noted with an incarcerated loop along the left lateral margin and with dilated small bowel loops seen into and out of it. A transition zone beyond the hernia in the mid lower abdomen/upper pelvis in a loop of the distal jejunum. There is no abscess, generalized ascites or free air. Distal jejunum and ileum show normal caliber. Slight edema of the wall of the terminal ileum without other significant findings in small bowel. 2. Multiple uterine fibroids with a anterior calcified fibroid and the posterolateral exophytic fibroid as well. 3. Trace infiltration of the peritoneal gutters. 4. Hepatomegaly without biliary dilatation or other acute finding. Signed by Agustin Chavez MD 06/12/2016 05:15 P
[2016-06-12] MEDS: HumaLOG INSULIN (NovoLOG) PER UNIT SC SCH ×2 (12:00→18:00)
[2016-06-12] MEDS ORDERED: METOCLOPRAMIDE INJ 10MG/2ML VIAL (J2765) IV PRN (13:30)
[2016-06-12] MEDS ORDERED: ONDANSETRON 4MG/2ML VIAL (J2405) IV PRN (13:30)
[2016-06-12] MEDS ORDERED: DICY10CA13 PO (14:02)
[2016-06-12] MEDS ORDERED: METF500T PO (14:02)
[2016-06-12] MEDS ORDERED: PROC25SU24 PR (14:02)
[2016-06-12] MEDS: LR 1,000 ML IV SCH ×3 (14:29→17:24)
[2016-06-12] MEDS: PANTOPRAZOLE 40MG INJ (PROTONIX) (C9113) IV SCH (14:37)
[2016-06-12] MEDS: KETOROLAC 30 MG/ML VIAL (J1885) IV PRN (15:56)
[2016-06-12 16:00] VITALS: BP 143/75
[2016-06-12 17:45] VITALS: BP 122/70
--- NOTE | 2016-06-12 18:17 | HPE ---
DATE OF ADMISSION: 06/12/2016 ADMISSION DIAGNOSIS: Incarcerated ventral incisional hernia with small-bowel obstruction. HISTORY OF PRESENT ILLNESS: The patient is a 40-year-old woman who presented to the emergency department for evaluation of some abdominal pain and nausea and vomiting on the morning of June 12. She had presented on June 10 for similar symptoms. On that occasion when seen in the emergency department she was provided some antinausea medications and appeared to be doing adequately and was discharged home. The patient reports that for the last 2 days she has tried sipping some water but has had repeated nausea and some emesis. She therefore returned to the emergency department. When seen today, she was found to have some normal labs. She underwent a CT scan of the abdomen and pelvis because of her significant discomfort. This revealed a ventral incisional hernia along the midline with a loop of small bowel seemingly incarcerated to the left of the midline with evidence for dilated small bowel proximal to this point. With this finding I was consulted to evaluate the patient and she is now admitted to undergo treatment for her incarcerated hernia with an intestinal obstruction. MEDICATIONS: The patient's only current medications that she admits to taking are some dicyclomine and prochlorperazine that were provided to her in the emergency department recently. She also admits taking some metformin 500 mg by mouth twice daily. ALLERGIES: The patient denies any known drug allergies. She reports allergies to seafood and kenn. MEDICAL HISTORY: The patient's medical history includes a history of bipolar disorder. She reports that she has been on medications previously but is not currently taking any medications. She has a history of diabetes. When seen in the emergency department on June 10, she had a hemoglobin A1c of 10.6, giving a mean plasma glucose of 258. During the interview today she denies diabetes but says her blood sugars are up only when she is sick. Looking back in her medical records in the electronic medical record shows that she has had elevated blood sugars going back at least as far as 2008. She had a hemoglobin A1c of 11.1 in January 2015. She has a history of morbid obesity which is longstanding. She has obstructive sleep apnea but does not utilize a continuous positive airway pressure (C-PAP) device. PAST SURGICAL HISTORY: The patient apparently has had a tonsillectomy performed. She has had a pilonidal cystectomy. She underwent an emergency section about 13 years ago by her report. She had presented with an incarcerated ventral hernia with a bowel obstruction back in June 2013 and underwent surgery at that time. She had a primary closure of her defect. She apparently developed a wound infection following this that required a prolonged treatment for healing. She reportedly had a second repair of her ventral hernia in 2014 in [place], though she cannot provide any significant details of this but does believe that she had some mesh utilized. SOCIAL HISTORY: Includes history of tobacco use. FAMILY HISTORY: Noncontributory. REVIEW OF SYSTEMS: The patient denies any heart problems including chest pains or palpitations. She denies cough, wheezing or sputum production but does admit to sleep apnea which is untreated. She has not had any significant abdominal pain until this past weekend, starting on June 10. She denies any dysuria or hematuria. She denies any history of pulmonary embolus or deep venous thrombosis (DVT). Remainder of the review of systems is unremarkable. PHYSICAL EXAMINATION: VITAL SIGNS: Most recent vital signs show a temperature of 97.3 with pulse of 78 , blood pressure of 128/64, respirations of 16. Her height is reported as 5 feet 2 inches with a weight listed of 250 pounds. Though I cannot tell from the record of this is reported or actually measured. The patient is alert and oriented. SKIN: Skin is warm and dry. Mucous membranes are tacky. Skin turgor appears good. She is perhaps slightly pale. Sclerae are anicteric. NECK: The neck is supple without mass. HEART: Exam shows a regular rate and rhythm. LUNGS: The lungs show clear breath sounds though they are somewhat distant on auscultation. The patient is morbidly obese. She has a long scar extending from the epigastrium down past the umbilicus into the lower abdomen. She has a very prominent pannus. She has bowel sounds present. There is some tenderness along the left side of the abdomen about at the level of the umbilicus and slightly above this perhaps 10-15 cm to the left of her midline. The obesity makes detection of any underlying hernia difficult and I cannot be certain whether there remains a midline hernia as well. Extremities are without edema. She has palpable radial and pedal pulses bilaterally. LABORATORY STUDIES: Laboratory studies include a CBC showing a white count of 8.3 with a hemoglobin of 15, hematocrit of 46, and platelet count of 428,000. Differential count shows 74% neutrophils, 17% lymphocytes. Her chemistry profile includes a sodium of 132, potassium 3.8, chloride 95, CO2 of 23, BUN of 19, creatinine 0.75 and glucose of 331. Liver function tests are normal with total protein of 7.7 and an albumin of 3.5. Amylase and lipase are normal. HCG is negative. On June 10, she had a hemoglobin A1c of 10.6. A urinalysis showed a pH of 5.0 with a specific gravity of 1.033 with 1+ protein 3+, glucose 2+ ketones, 3+ blood, 2 white cells and 38 red cells per high-power field with negative bacteria and negative leukocyte esterase. Her CT scan of the abdomen and pelvis revealed a midline periumbilical ventral hernia with a loop of small bowel appearing incarcerated in the left lateral margin of this with some dilated small bowel proximal to this. She had uterine fibroids identified with an anterior calcified fibroid. IMPRESSION: 1. Incarcerated ventral hernia with small-bowel obstruction. 2. Morbid obesity. 3. Diabetes mellitus. 4. Obstructive sleep apnea. 5. Bipolar disorder. 6. Nicotine addiction. PLAN: The patient was counseled that she has a recurrent of small bowel obstruction secondary to her hernia. I have recommended admission for surgery. She appears somewhat dehydrated, so she will be a hydrated more aggressively for the next few hours. She will receive preoperative antibiotics to try to avoid wound infection. It is my natural hope that we would to be able to make a relatively limited incision in the abdomen to approach the area of her incarcerated bowel but it may well be that we will need to make a very large incision and open her widely to address her hernia or hernias. I do not see definite mesh in the wall of the abdomen despite her suggestion that this may have been placed at her most recent surgery in [place]. She will be kept on the sleep apnea protocol for monitoring of her oxygen saturations and will be placed on 3 liters of nasal cannula oxygen. She will be kept nothing by mouth for now. She was counseled regarding the need for surgery and desires to proceed. I will also start fingerstick blood sugars with sliding scale insulin coverage for her diabetes. Ultimately I will need to obtain a consultation from the hospitalist to assist in her management and to ensure that she is connected to the appropriate outpatient services once she is nearing discharge. CA
[2016-06-12 20:00] VITALS: BP 142/77
[2016-06-12] MEDS ORDERED: fentaNYL 100 MCG/2 ML INJECTION (J3010) As Ordered ONE ×2 (21:34→21:40)
[2016-06-12] MEDS ORDERED: PROPOFOL 500 MG/50 ML VIAL As Ordered ONE (21:34)
[2016-06-12] MEDS ORDERED: ROCURONIUM BROMIDE 50 MG/5 ML VIAL As Ordered ONE ×2 (21:40→22:04)
[2016-06-12] MEDS ORDERED: ONDANSETRON 4MG/2ML VIAL (J2405) As Ordered ONE (21:40)
[2016-06-12] MEDS ORDERED: dexameTHASONE 4 MG/ML 1ML VIAL (J1100) As Ordered ONE (21:40)
[2016-06-12] MEDS ORDERED: HYDROmorphone HCL 2 MG/ML 1ML VIAL (J1170) As Ordered ONE (21:51)
[2016-06-12] MEDS ORDERED: LIDOCAINE 2% INJ 100 MG/5 ML SDV (FOR ANES.) As Ordered ONE (22:13)
[2016-06-13] VITALS (9 sets, daily range): BP systolic 128–146; BP diastolic 72–82
[2016-06-13] MEDS ORDERED: GLYCOPYRROLATE INJ 0.2 MG/ML 2 ML VIAL As Ordered ONE (00:33)
[2016-06-13] MEDS ORDERED: NEOSTIGMINE 1MG/ML 5 ML SYRINGE (J2710) As Ordered ONE (00:33)
[2016-06-13] MEDS ORDERED: fentaNYL 100 MCG/2 ML INJECTION (J3010) IV PRN (02:15)
[2016-06-13] MEDS ORDERED: ONDANSETRON 4MG/2ML VIAL (J2405) IV PRN (02:15)
[2016-06-13] MEDS ORDERED: METOCLOPRAMIDE INJ 10MG/2ML VIAL (J2765) IV PRN (02:15)
[2016-06-13] MEDS ORDERED: LR 1,000 ML IV SCH (02:15)
[2016-06-13] MEDS ORDERED: HYDROmorphone HCL 1 MG/ML SYRINGE (J1170) IV PRN (02:15)
[2016-06-13] MEDS ORDERED: ONDANSETRON 4MG/2ML VIAL (J2405) As Ordered ONE (02:20)
[2016-06-13] MEDS: LR 1,000 ML IV SCH ×5 (03:00→20:21)
[2016-06-13 04:49] LABS: BASO % 0.1 % (0.0-1.0); EOS # 0.1 K/mm3 (0.0-0.50); EOS % 0.5 % (0.0-3.0); LARGE UNSTAINED CELL % 0.4 % (0.0-4.0); LYMPH # 0.5 K/mm3 (1.5-4.5); LYMPH % 4.1 % (24.0-44.0); MEAN CORPUSCULAR HEMOGLOBIN 29.2 pg (27.0-33.0); MEAN CORPUSCULAR VOLUME 88.5 fl (80.0-96.0); MONO # 0.4 K/mm3 (0.0-0.8); NEUTROPHILS # 10.2 K/mm3 (1.8-7.7); NEUTROPHILS % 90.9 % (36.0-66.0); PLATELET COUNT, AUTOMATED 331 k/mm3 (150-450); RED CELL DISTRIBUTION WIDTH 12.9 % (11.5-14.5); WHITE BLOOD COUNT 11.2 K/mm3 (4.0-10.0)
[2016-06-13 05:08] LABS: ALBUMIN 2.7 GM/DL (3.2-5.2); ALBUMIN/GLOBULIN RATIO 0.87 (1.00-1.93); ALKALINE PHOSPHATASE 73 U/L (45-117); ALT/SGPT 16 U/L (12-78); ANION GAP 14 MEQ/L (8-16); AST/SGOT 9 U/L (15-37); BILIRUBIN,TOTAL 0.7 MG/DL (0.2-1.0); BLOOD UREA NITROGEN 19 MG/DL (7-18); CALCIUM LEVEL 7.4 MG/DL (8.5-10.1); CARBON DIOXIDE LEVEL 21 MEQ/L (21-32); CHLORIDE LEVEL 103 MEQ/L (98-107); CREATININE FOR GFR 0.55 MG/DL (0.55-1.02); GLOMERULAR FILTRATION RATE > 60.0 (>58); GLUCOSE, FASTING 326 MG/DL (70-105); POTASSIUM SERUM 3.9 MEQ/L (3.5-5.1); SODIUM LEVEL 138 MEQ/L (136-145); TOTAL PROTEIN 5.8 GM/DL (6.4-8.2)
[2016-06-13] MEDS: HumaLOG INSULIN (NovoLOG) PER UNIT SC SCH ×4 (06:00→18:00)
[2016-06-13] MEDS: MORPHINE 2 MG/ML 1ML SYRINGE IV PRN ×7 (06:06→23:05)
[2016-06-13] MEDS: PANTOPRAZOLE 40MG INJ (PROTONIX) (C9113) IV SCH (09:08)
[2016-06-14] MEDS: KETOROLAC 30 MG/ML VIAL (J1885) IV PRN ×2 (00:40→14:42)
[2016-06-14] MEDS: HumaLOG INSULIN (NovoLOG) PER UNIT SC SCH ×4 (00:42→18:11)
[2016-06-14] MEDS: MORPHINE 2 MG/ML 1ML SYRINGE IV PRN ×5 (03:00→20:08)
[2016-06-14] MEDS: LR 1,000 ML IV SCH ×3 (03:00→14:42)
[2016-06-14 06:00] VITALS: BP 107/53
[2016-06-14] MEDS: PANTOPRAZOLE 40MG INJ (PROTONIX) (C9113) IV SCH (09:17)
[2016-06-14 14:00] VITALS: BP 129/85
[2016-06-14] MEDS ORDERED: NORCO, ANEXSIA 5/325MG TABLET (HYDROcodone/ACETAMINOPHEN) PO PRN (15:30)
[2016-06-14] MEDS ORDERED: ACETAMINOPHEN TAB 650MG DOSE (2X325MG) PO PRN (15:30)
[2016-06-14] MEDS: NORCO, ANEXSIA 5/325MG TABLET (HYDROcodone/ACETAMINOPHEN) PO PRN ×2 (17:03→23:07)
[2016-06-14] MEDS: metFORMIN (GLUCOPHAGE) 500 MG TAB PO SCH (18:11)
[2016-06-14] MEDS: IBUPROFEN 600 MG TAB PO PRN (20:09)
[2016-06-14 22:00] VITALS: BP 134/69
[2016-06-15] MEDS: HumaLOG INSULIN (NovoLOG) PER UNIT SC SCH ×5 (00:13→21:00)
[2016-06-15] MEDS ORDERED: GLUCOSE 4 GM CHEW TABLET PO PRN (00:15)
[2016-06-15] MEDS: IBUPROFEN 600 MG TAB PO PRN ×2 (04:10→22:45)
[2016-06-15 06:00] VITALS: BP 125/77
[2016-06-15 07:04] LABS: BASO % 0.1 % (0.0-1.0); EOS # 0.3 K/mm3 (0.0-0.50); EOS % 4.8 % (0.0-3.0); LARGE UNSTAINED CELL # 0.1 K/mm3 (0.0-0.4); LARGE UNSTAINED CELL % 1.1 % (0.0-4.0); LYMPH # 1.1 K/mm3 (1.5-4.5); MEAN CORPUSCULAR HGB CONC 33.2 g/dl (32.0-36.5); MEAN CORPUSCULAR VOLUME 87.4 fl (80.0-96.0); MONO # 0.4 K/mm3 (0.0-0.8); MONO % 5.1 % (0.0-5.0); NEUTROPHILS # 5.1 K/mm3 (1.8-7.7); NEUTROPHILS % 73.9 % (36.0-66.0); PLATELET COUNT, AUTOMATED 293 k/mm3 (150-450); RED CELL DISTRIBUTION WIDTH 12.8 % (11.5-14.5)
[2016-06-15 07:14] LABS: ALBUMIN 2.2 GM/DL (3.2-5.2); ALBUMIN/GLOBULIN RATIO 0.71 (1.00-1.93); ALKALINE PHOSPHATASE 73 U/L (45-117); ALT/SGPT 12 U/L (12-78); ANION GAP 7 MEQ/L (8-16); AST/SGOT 5 U/L (15-37); BILIRUBIN,TOTAL 0.5 MG/DL (0.2-1.0); BLOOD UREA NITROGEN 5 MG/DL (7-18); CARBON DIOXIDE LEVEL 28 MEQ/L (21-32); CHLORIDE LEVEL 104 MEQ/L (98-107); CREATININE FOR GFR 0.47 MG/DL (0.55-1.02); GLOMERULAR FILTRATION RATE > 60.0 (>58); GLUCOSE, FASTING 267 MG/DL (70-105); POTASSIUM SERUM 3.3 MEQ/L (3.5-5.1); SODIUM LEVEL 139 MEQ/L (136-145); TOTAL PROTEIN 5.3 GM/DL (6.4-8.2)
[2016-06-15] MEDS: NORCO, ANEXSIA 5/325MG TABLET (HYDROcodone/ACETAMINOPHEN) PO PRN ×2 (07:55→19:51)
[2016-06-15] MEDS: metFORMIN (GLUCOPHAGE) 500 MG TAB PO SCH (07:55)
[2016-06-15] MEDS: metFORMIN (GLUCOPHAGE) 1000 MG TABLET PO SCH (17:17)
[2016-06-15 22:00] VITALS: BP 135/69
[2016-06-16 02:00] VITALS: BP 129/63
[2016-06-16 06:00] VITALS: BP 138/70
[2016-06-16 08:45] VITALS: BP 135/90
[2016-06-16] MEDS: NORCO, ANEXSIA 5/325MG TABLET (HYDROcodone/ACETAMINOPHEN) PO PRN (09:12)
[2016-06-16] MEDS: metFORMIN (GLUCOPHAGE) 1000 MG TABLET PO SCH ×2 (09:13→17:41)
[2016-06-16] MEDS: HumaLOG INSULIN (NovoLOG) PER UNIT SC SCH ×3 (09:13→17:30)
[2016-06-16 11:59] VITALS: BP 136/84
[2016-06-16] MEDS: IBUPROFEN 600 MG TAB PO PRN (12:02)
[2016-06-16 14:00] VITALS: BP 133/88
[2016-06-16] MEDS ORDERED: GLUC1000 PO (17:01)
[2016-06-16] MEDS ORDERED: NORCOTAB PO (17:01)
[2016-06-16] MEDS ORDERED: IBUP60TA PO (17:01)
--- NOTE | 2016-06-21 07:01 | DSES ---
DATE OF ADMISSION: 06/12/2016 DATE OF DISCHARGE: 06/16/2016 ADMISSION DIAGNOSIS Incarcerated ventral incisional hernia with small-bowel obstruction. HISTORY OF PRESENT ILLNESS: The patient is a 40-year-old woman who presented to the emergency department with a several-day history of abdominal discomfort with nausea and vomiting. A CT scan in the emergency department revealed a ventral incisional hernia along the midline with a loop of small bowel incarcerated to the left of the midline and a smaller fascial defect. This appeared to be causing an intestinal obstruction. The patient was admitted to undergo surgery for her intestinal obstruction. The patient was counseled regarding her (sound cut). She was advised that operative intervention would be required. HOSPITAL COURSE: The patient was admitted and taken to the operating room on the evening of 06/12. Her surgery continued into the family court justice of 06/13. An exploratory laparotomy with lysis of adhesions, release of small-bowel obstruction, and repair of incarcerated ventral hernia with mesh. Two Zev drains were left in the large subcutaneous space postoperatively. A Samson catheter was utilized during surgery and was discontinued on the morning of 06/13. She reported no further nausea or vomiting and did have some flatus. She was started on some clear liquids. She tolerated the liquids well and her diet was advanced. Her drains had a fairly large amount of serous to lightly pink fluid. The patient was put back on her usual dose of metformin with slight improvement in her blood sugars and the dose was then doubled. She was also placed on a consistent carbohydrate diet. She was counseled that she would need to work harder at maintaining a better blood sugar control and that she would need to followup with her primary caregiver to accomplish this. By 06/15, she was doing generally well. She had a still moderate to large amount of drainage from her drains. This persisted. By 06/16, she was overall doing well, though the drains could not be removed due to the amount of output. She was therefore discharged home with the drains in place after being instructed on how to manage these. FINAL DIAGNOSES: 1. Incarcerated ventral incisional hernia with small-bowel obstruction. 2. Morbid obesity. 3. Bipolar disorder. 4. Diabetes mellitus. 5. Obstructive sleep apnea. 6. Nicotine addiction. PROCEDURE PERFORMED: Exploratory laparotomy with lysis of adhesions, release of small-bowel obstruction, and repair of ventral incisional hernia with Parietex mesh. DISPOSITION: The patient was discharged home on June 16, 2016. She was advised against any strenuous physical activity. She was being discharged with her two drains in place. She was advised that she could take sponge baths only and should keep the drain sites dry. She was to leave the chlorhexidine gluconate OpSite on the drain sites until seen in the office. She was to call for any problems. She was advised that her blood sugars were not well controlled. She was discharged home on an increased dose of metformin of 1 gram by mouth twice daily. She was to followup with her primary caregiver to work on better glucose management. She was also provided prescriptions for [place] and ibuprofen to take as directed for pain. She was to followup in my office on June 21, 2016, and was to call on June 19 for an appointment time.
--- NOTE | 2016-06-26 22:50 | RO ---
DATE OF PROCEDURE: 06/12/2016 to 06/13/2016 PREOPERATIVE DIAGNOSIS: Incarcerated ventral incisional hernia with intestinal obstruction. POSTOPERATIVE DIAGNOSIS: Incarcerated ventral incisional hernia with intestinal obstruction. OPERATIVE PROCEDURE: Laparotomy with repair of incarcerated ventral hernia with mesh and release of small-bowel obstruction. SURGEON: Dr. Lc Martins BORING MACHINE SET UP OPERATOR JIG: ANESTHESIA: General. INDICATIONS FOR PROCEDURE: Patient is a 40-year-old woman was a prior history of ventral hernia repairs. She had most recently undergone a procedure several years earlier in [place], possibly utilizing mesh. She presented to the hospital with a history of nausea and vomiting and abdominal distension. A CT scan showed a broad area of weakening of the abdominal wall consistent with a recurrent hernia with a smaller hernia at the left lateral aspect of this into which there was protrusion of a loop of small bowel with an associated small bowel obstruction. The patient is now for laparotomy, release of her obstruction and possible repair of her hernia. OPERATIVE PROCEDURE: The patient was taken to the operating room and placed on the table in a supine position. The patient was placed under general endotracheal anesthesia. The patient's abdomen was prepped and draped in a sterile fashion. She had a widened midline scar from prior surgery. An approximately 20 cm midline incision was made roughly centered on the area of her umbilicus. The incision was deepened through her scar. Much of the dissection was continued using cautery. A markedly thinned layer of fascia was identified. This was opened and there appeared to be some incorporation of some sort of prosthetic mesh, possibly an absorbable or biologic type of mesh. This appeared to have fragmented somewhat along the midline. The incision was extended through the length of the wound through the underlying tissues. There were fairly extensive adhesions of the small bowel to the anterior abdominal wall and these were dissected using scissors with care to protect the bowel. The dissection extended out on both sides widely. There appeared to be a gap about 15 cm in width between the muscular portion of the abdominal wall. Along the left side of the of the dissection just medial to her rectus muscle an approximately 2-3 cm opening was identified, which had served as the point for her obstruction. In the course of taking down her adhesions it appeared that the loop of bowel had been reduced from within this hernia. Some dissection was carried out on the outside of the fascia to reach this area and excise the hernia sac. This defect was then closed with interrupted simple sutures of #0 Ethibond. The small bowel was inspected and in the area of the adhesiolysis there was no sign of perforation. One small seromuscular defect was approximated with several sutures of #3-0 Vicryl. There did not appear to be enough tissue to approximate the midline with muscular support. I considered a component separation technique as it seemed that this might provide adequate healthy, muscular reinforced tissue for a closure, but I felt that performing this as an emergency at this point was not warranted. I, therefore excised portions of the thinned fascia on both sides. The fascia was brought together in the midline with interrupted simple sutures of #0 Ethibond. In order to reinforce this I placed a 15 x 20 cm piece of Parietex mesh over this fascial closure. This was sutured at the 12, 3, 6 and 9-o'clock positions with simple sutures of Ethibond. An AbsorbaTack tacker was then used to fasten this securely to the underlying fascia. Two #19-Nigerien Zev drains were inserted exiting on the top left and top right aspects of the wound. The subcutaneous tissues were closed with chromic and the skin edges were approximated with a skin stapler. The patient tolerated the procedure well. The drains were sutured to the skin with #2-0 silk and a CHG OpSite dressings were applied at both drain sites and these were connected to Luis Alberto-Gomez bulbs. The patient was awakened in the operating room and extubated and transported to the recovery room in stable condition.
== END 2016-06-16 18:00 | disposition home or self-care (01) | DRG 354 ==
LOC: EDBD 08:41 → M ED 10:55 → M ED INP 13:28 → M MS5PR 17:30
PROVIDERS: ADMIT Surgery; ATTEND Surgery
PROC: 0WUF0JZ Supplement Abdominal Wall with Synthetic Substitute, Open Approach (ICD-10-PCS; principal; 2016-06-12 21:10)
DX: K43.0 Incisional hernia with obstruction, without gangrene (principal); Z68.43 Body mass index [BMI] 50.0-59.9, adult; E11.9 Type 2 diabetes mellitus without complications; F17.200 Nicotine dependence, unspecified, uncomplicated; Z91.013 Allergy to seafood; Z91.018 Allergy to other foods; F31.9 Bipolar disorder, unspecified; G47.33 Obstructive sleep apnea (adult) (pediatric); E86.0 Dehydration; E66.01 Morbid (severe) obesity due to excess calories

== ENCOUNTER 2016-08-13 20:49 | Emergency (ER) | payer MEDICARE, MEDICAID ==
[~2016-08-13] VITALS: Ht 157.5 cm; Wt 117.9 kg
[~2016-08-13 20:49] MED LIST changes: +DICY10CA13 PO; +GLUC1000 PO; +IBUP60TA PO; +NORCOTAB PO
[2016-08-13 20:51] VITALS: BP 140/71
[2016-08-13] MEDS ORDERED: PENICILLIN V POTASSIUM 500 MG TAB PO ONE (21:45)
[2016-08-13] MEDS ORDERED: IBUPROFEN 600 MG TAB PO ONE (21:45)
[2016-08-13] MEDS ORDERED: PENI50TA PO (21:50)
[2016-08-13] MEDS ORDERED: TYLE325T5 PO (21:51)
[2016-08-13] MEDS ORDERED: IBUP600T26 PO (21:52)
== END 2016-08-13 22:23 | disposition home or self-care (01) ==
LOC: M ED 22:00
DX: K08.89 Other specified disorders of teeth and supporting structures (principal); E11.9 Type 2 diabetes mellitus without complications; F31.9 Bipolar disorder, unspecified; G47.30 Sleep apnea, unspecified; K58.9 Irritable bowel syndrome, unspecified; F17.200 Nicotine dependence, unspecified, uncomplicated; K02.9 Dental caries, unspecified; Z91.018 Allergy to other foods; Z91.013 Allergy to seafood

== ENCOUNTER 2016-09-18 06:10 | Emergency (ER) | payer MEDICARE, MEDICAID ==
[~2016-09-18] VITALS: Ht 157.5 cm; Wt 127.0 kg
[~2016-09-18 06:10] MED LIST changes: +IBUP-1022 PO; +IBUP1TAB6 PO; -IBUP60TA PO; -METF500T PO; +METF500T13 PO; +PENI500T PO; +TYLE325T5 PO
[2016-09-18 06:20] VITALS: BP 150/93
[2016-09-18] MEDS ORDERED: LIDOCAINE W/EPINEPHRINE 1% 20ML VIAL SC ONE (06:30)
[2016-09-18] MEDS ORDERED: CETACAINE SPRAY 20GM (FLOOR STOCK) TOP ONE (06:30)
[2016-09-18] MEDS ORDERED: CLIN150C14 PO (06:48)
== END 2016-09-18 07:13 | disposition home or self-care (01) ==
LOC: M ED 06:10
DX: K08.89 Other specified disorders of teeth and supporting structures (principal); E11.9 Type 2 diabetes mellitus without complications; G89.29 Other chronic pain; F17.200 Nicotine dependence, unspecified, uncomplicated; Z91.018 Allergy to other foods; Z91.013 Allergy to seafood

== ENCOUNTER 2016-09-18 21:24 | Emergency (ER) | payer MEDICARE, MEDICAID ==
[~2016-09-18] VITALS: Ht 157.5 cm; Wt 127.3 kg
[~2016-09-18 21:24] MED LIST changes: +CLIN150C14 PO
[2016-09-18 21:25] VITALS: BP 183/73
== END 2016-09-18 22:59 | disposition left against medical advice (07) ==
LOC: M ED 21:24
DX: K08.89 Other specified disorders of teeth and supporting structures (principal); Z53.21 Procedure and treatment not carried out due to patient leaving prior to being seen by health care provider

== ENCOUNTER 2016-11-21 03:48 | Emergency (ER) | payer MEDICARE, MEDICAID ==
[~2016-11-21] VITALS: Ht 66 cm; Wt 127.0 kg
== END 2016-11-21 06:40 | disposition left against medical advice (07) ==
LOC: M ED 03:48 → EDBD 03:48 → M ED 06:40
DX: S30.861A Insect bite (nonvenomous) of abdominal wall, initial encounter (principal); W57.XXXA Bitten or stung by nonvenomous insect and other nonvenomous arthropods, initial encounter; Y92.019 Unspecified place in single-family (private) house as the place of occurrence of the external cause; Y93.89 Activity, other specified; Y99.8 Other external cause status; B88.9 Infestation, unspecified; E11.9 Type 2 diabetes mellitus without complications; Z91.018 Allergy to other foods; Z91.013 Allergy to seafood

== ENCOUNTER 2017-02-24 15:46 | Emergency (ER) | payer MEDICARE, MEDICAID ==
[~2017-02-24] VITALS: Ht 157.5 cm; Wt 123.0 kg
[2017-02-24] MEDS ORDERED: ONDA4TAB6 (15:53)
[2017-02-24] MEDS ORDERED: ONDANSETRON 4MG/2ML VIAL (J2405) IV ONE (16:45)
[2017-02-24] MEDS ORDERED: NS 1,000 ML IV ONE (16:45)
[2017-02-24] MEDS ORDERED: GASTROGRAFIN SOLUTION 30ML (Q9963) PO ONE ×2 (17:00→17:30)
[2017-02-24 17:08] LABS: BASO # 0.1 10^3/uL (0.0-0.2); BASO % 0.6 % (0.0-1.0); EOS # 0.2 10^3/uL (0.0-0.50); EOS % 2.2 % (0.0-3.0); IMMATURE GRANULOCYTE % 0.2 % (0-0); LYMPH % 23.6 % (24.0-44.0); MEAN CORPUSCULAR HGB CONC 32.3 g/dl (32.0-36.5); MEAN CORPUSCULAR VOLUME 80.5 fl (80.0-96.0); MONO # 0.4 10^3/uL (0.0-0.8); MONO % 4.5 % (0.0-5.0); NEUTROPHILS # 5.9 10^3/uL (1.8-7.7); NEUTROPHILS % 68.9 % (36.0-66.0); PLATELET COUNT, AUTOMATED 409 10^3/uL (150-450); RED CELL DISTRIBUTION WIDTH 14.2 % (11.5-14.5); WHITE BLOOD COUNT 8.5 10^3/uL (4.0-10.0)
[2017-02-24 17:12] LABS: MUCUS, URINE RFX SMALL (NEGATIVE); SPECIFIC GRAVITY UR AUTO RFX 1.024 (1.002-1.035); SQUAM EPITHELIAL CELL UR AURFX 13 /HPF (0-6)
[2017-02-24 17:34] LABS: ALBUMIN 3.4 GM/DL (3.2-5.2); ALBUMIN/GLOBULIN RATIO 0.92 (1.00-1.93); ALKALINE PHOSPHATASE 91 U/L (45-117); ALT/SGPT 16 U/L (12-78); ANION GAP 9 MEQ/L (8-16); AST/SGOT 12 U/L (7-37); BILIRUBIN,DIRECT 0.1 MG/DL (0.0-0.2); BILIRUBIN,TOTAL 0.4 MG/DL (0.2-1.0); BLOOD UREA NITROGEN 12 MG/DL (7-18); CALCIUM LEVEL 9.1 MG/DL (8.5-10.1); CARBON DIOXIDE LEVEL 28 MEQ/L (21-32); CHLORIDE LEVEL 98 MEQ/L (98-107); GLOMERULAR FILTRATION RATE > 60.0 (>58); GLUCOSE, FASTING 325 MG/DL (70-105); POTASSIUM SERUM 4.1 MEQ/L (3.5-5.1); SODIUM LEVEL 135 MEQ/L (136-145); TOTAL PROTEIN 7.1 GM/DL (6.4-8.2)
[2017-02-24] MEDS ORDERED: ISOVUE-370 76% 100ML VIAL (Q9967) As Ordered ONE (17:51)
--- NOTE | 2017-02-24 19:05 | REP ---
Clinical: Abdominal pain. Possible hernia. Technique: Axial contrast enhanced images from the lung bases to the pubic symphysis using oral (per protocol) and 100 ml Isovue 370 intravenous contrast material with coronal and sagittal re-formations. Comparison: 06/12/2016. Findings: There appears to be a large complex fluid collection in the anterior supraumbilical abdominopelvic subcutaneous tissues measuring approximately 13.6 x 10.9 cm transverse diameter and 20.1 cm craniocaudal length. This complex collection requires correlation and may represent a seroma or hematoma. There is an adjacent ventral hernia containing fat and nonobstructed small bowel, and it is difficult to definitively ascertain whether the above mentioned complex fluid collection is extraperitoneal or related to the adjacent hernia. The small and large bowel is without evidence for obstruction. Liver, spleen, pancreas, collapsed gallbladder, bilateral adrenal glands and kidneys are normal. Pelvis demonstrates enlarged, bulky myomatous uterus including partially calcified fundal fibroid and multiple fibroids of the which give the uterus a multilobulated contour. The bladder is unremarkable. No ascites. No free air. No significant adenopathy. Abdominal aorta and vasculature appears normal. Musculoskeletal structures are intact. Lung bases are clear. Impression: 1. Large complex fluid collection in the anterior supraumbilical subcutaneous tissues which is adjacent to the ventral hernia containing fat and nonobstructed small bowel. Fluid collection appears to be in the subcutaneous tissues rather than arising from the peritoneum and hernia. However, correlation is required. Differential diagnosis would include hematoma and seroma and should be correlated with prior surgery. 2. Enlarged bulky myomatous uterus. Signed by Diaz Matthew MD 02/24/2017 06:56 P
[2017-02-24] MEDS ORDERED: METF500T4 PO (20:07)
[2017-02-24 20:21] VITALS: BP 145/71
== END 2017-02-24 20:31 | disposition home or self-care (01) ==
LOC: M ED 15:46
DX: K43.9 Ventral hernia without obstruction or gangrene (principal); E11.9 Type 2 diabetes mellitus without complications; Z72.0 Tobacco use
CPT/HCPCS: 74177; 80048; 80076; 81001; 83690; 85025; 96361; 96374; 99284; J2405; Q9963; Q9967

== ENCOUNTER 2017-04-04 18:29 | Emergency (ER) | payer MEDICARE, MEDICAID ==
[2017-04-04] MEDS: NS 1,000 ML IV (19:29)
[2017-04-04] MEDS: MORPHINE 4 MG/ML 1ML SYRINGE IV (19:29)
[2017-04-04] MEDS: ONDANSETRON 4MG/2ML VIAL (J2405) IV (19:29)
[2017-04-04 19:31] LABS: BASO # 0.1 10^3/uL (0.0-0.2); BASO % 0.6 % (0.0-1.0); EOS # 0.2 10^3/uL (0.0-0.50); EOS % 1.9 % (0.0-3.0); HEMATOCRIT 39.7 % (36.0-47.0); HEMOGLOBIN 13.2 g/dl (12.0-16.0); IMMATURE GRANULOCYTE % 0.3 % (0-0); LYMPH # 2.3 10^3/uL (1.5-4.5); MEAN CORPUSCULAR HEMOGLOBIN 26.6 pg (27.0-33.0); MEAN CORPUSCULAR HGB CONC 33.2 g/dl (32.0-36.5); MEAN CORPUSCULAR VOLUME 79.9 fl (80.0-96.0); MONO # 0.5 10^3/uL (0.0-0.8); MONO % 4.4 % (0.0-5.0); NEUTROPHILS # 7.6 10^3/uL (1.8-7.7); NEUTROPHILS % 70.8 % (36.0-66.0); PLATELET COUNT, AUTOMATED 415 10^3/uL (150-450); RED BLOOD COUNT 4.97 10^6/uL (4.00-5.40); RED CELL DISTRIBUTION WIDTH 13.8 % (11.5-14.5); WHITE BLOOD COUNT 10.7 10^3/uL (4.0-10.0)
[2017-04-04 19:52] LABS: ALBUMIN 3.5 GM/DL (3.2-5.2); ALBUMIN/GLOBULIN RATIO 0.81 (1.00-1.93); ALKALINE PHOSPHATASE 100 U/L (45-117); ALT/SGPT 16 U/L (12-78); ANION GAP 9 MEQ/L (8-16); AST/SGOT 5 U/L (7-37); BILIRUBIN,DIRECT 0.1 MG/DL (0.0-0.2); BILIRUBIN,TOTAL 0.5 MG/DL (0.2-1.0); BLOOD UREA NITROGEN 15 MG/DL (7-18); CALCIUM LEVEL 9.8 MG/DL (8.5-10.1); CARBON DIOXIDE LEVEL 26 MEQ/L (21-32); CHLORIDE LEVEL 100 MEQ/L (98-107); CREATININE FOR GFR 0.63 MG/DL (0.55-1.30); GLOMERULAR FILTRATION RATE > 60.0 (>58); GLUCOSE, FASTING 290 MG/DL (70-100); LIPASE 159 U/L (73-393); POTASSIUM SERUM 3.6 MEQ/L (3.5-5.1); SODIUM LEVEL 135 MEQ/L (136-145); TOTAL PROTEIN 7.8 GM/DL (6.4-8.2)
[2017-04-04 19:55] LABS: LACTIC ACID SEPSIS PROTOCOL 1.8 MMOL/L (0.4-2.0)
[2017-04-04] MEDS ORDERED: ISOVUE-370 76% 100ML VIAL (Q9967) As Ordered (20:12)
[2017-04-04] MEDS: ONDANSETRON 4 MG ORAL DISINTEGRATING TAB (S0181) PO (22:14)
== END 2017-04-04 22:40 | disposition home or self-care (01) ==
LOC: M ED 18:29
DX: K43.9 Ventral hernia without obstruction or gangrene (principal); R11.2 Nausea with vomiting, unspecified
CPT/HCPCS: J2405

== ENCOUNTER 2017-04-05 21:19 | Emergency (ER) | payer MEDICARE, MEDICAID ==
[2017-04-05] MEDS ORDERED: METOCLOPRAMIDE 10 MG TAB As Ordered (22:10)
[2017-04-05] MEDS: PERCOCET 5MG/325MG TAB PO (22:12)
[2017-04-05] MEDS: METOCLOPRAMIDE 10 MG TAB PO (22:12)
[2017-04-05] MEDS ORDERED: ONDANSETRON 4 MG ORAL DISINTEGRATING TAB (S0181) PO (22:15)
[2017-04-05 22:27] LABS: BASO # 0.1 10^3/uL (0.0-0.2); BASO % 0.6 % (0.0-1.0); EOS # 0.2 10^3/uL (0.0-0.50); EOS % 1.9 % (0.0-3.0); HEMATOCRIT 39.4 % (36.0-47.0); HEMOGLOBIN 12.7 g/dl (12.0-16.0); IMMATURE GRANULOCYTE % 0.3 % (0-0); LYMPH # 1.6 10^3/uL (1.5-4.5); MEAN CORPUSCULAR HEMOGLOBIN 26.2 pg (27.0-33.0); MEAN CORPUSCULAR HGB CONC 32.2 g/dl (32.0-36.5); MEAN CORPUSCULAR VOLUME 81.4 fl (80.0-96.0); MONO # 0.4 10^3/uL (0.0-0.8); MONO % 4.2 % (0.0-5.0); NEUTROPHILS # 7.6 10^3/uL (1.8-7.7); PLATELET COUNT, AUTOMATED 410 10^3/uL (150-450); RED BLOOD COUNT 4.84 10^6/uL (4.00-5.40); RED CELL DISTRIBUTION WIDTH 13.9 % (11.5-14.5); WHITE BLOOD COUNT 9.8 10^3/uL (4.0-10.0)
[2017-04-05 22:49] LABS: ALBUMIN 3.6 GM/DL (3.2-5.2); ALBUMIN/GLOBULIN RATIO 0.95 (1.00-1.93); ALKALINE PHOSPHATASE 98 U/L (45-117); ALT/SGPT 14 U/L (12-78); ANION GAP 7 MEQ/L (8-16); AST/SGOT < 3 U/L (7-37); BILIRUBIN,DIRECT 0.1 MG/DL (0.0-0.2); BILIRUBIN,TOTAL 0.4 MG/DL (0.2-1.0); BLOOD UREA NITROGEN 14 MG/DL (7-18); CALCIUM LEVEL 9.3 MG/DL (8.5-10.1); CARBON DIOXIDE LEVEL 29 MEQ/L (21-32); CHLORIDE LEVEL 100 MEQ/L (98-107); CREATININE FOR GFR 0.71 MG/DL (0.55-1.30); GLOMERULAR FILTRATION RATE > 60.0 (>58); GLUCOSE, FASTING 356 MG/DL (70-100); LIPASE 128 U/L (73-393); POTASSIUM SERUM 4.3 MEQ/L (3.5-5.1); SODIUM LEVEL 136 MEQ/L (136-145); TOTAL PROTEIN 7.4 GM/DL (6.4-8.2)
[2017-04-05] MEDS: NORCO 5/325MG TABLET (BULK FOR ED) PO (23:00)
== END 2017-04-05 23:34 | disposition home or self-care (01) ==
LOC: M ED 21:19
DX: K43.9 Ventral hernia without obstruction or gangrene (principal); E11.9 Type 2 diabetes mellitus without complications; K58.9 Irritable bowel syndrome, unspecified; G47.33 Obstructive sleep apnea (adult) (pediatric)
CPT/HCPCS: 74019

== ENCOUNTER → 2017-04-30 | Outpatient (REF) | payer MEDICARE, MEDICAID | LOC: M LAB REF 12:17 | DX: L76.34 Postprocedural seroma of skin and subcutaneous tissue following other procedure (principal); K43.0 Incisional hernia with obstruction, without gangrene | CPT/HCPCS: 87205 ==

== ENCOUNTER 2017-05-18 16:14 | Day surgery (SDC) | payer MEDICARE, MEDICAID ==
[2017-05-24] MEDS ORDERED: LIDOCAINE 1% SDV 5 ML VIAL SQ ×2 (13:45)
[2017-05-24 14:13] LABS: CONTROL LINE UCG INT CTR LINE PRESENT; URINE PREG TEST NEGATIVE (NEGATIVE)
[2017-05-24] MEDS: LR 1,000 ML IV ×2 (14:47)
== END 2017-05-24 | disposition left against medical advice (07) ==
LOC: M ADMPAT 16:14 → M SDC 05-24 13:28
DX: L76.34 Postprocedural seroma of skin and subcutaneous tissue following other procedure (principal); Z53.21 Procedure and treatment not carried out due to patient leaving prior to being seen by health care provider
CPT/HCPCS: 84703

== ENCOUNTER 2017-09-15 03:55 | Emergency (ER) | payer MEDICARE, MEDICAID | END 2017-09-15 05:36 | disposition left against medical advice (07) | LOC: M ED 03:55 | DX: R10.9 Unspecified abdominal pain (principal); Z53.21 Procedure and treatment not carried out due to patient leaving prior to being seen by health care provider ==

== ENCOUNTER 2017-10-03 21:47 | Emergency (ER) | payer MEDICARE, MEDICAID | END 2017-10-04 00:34 | disposition left against medical advice (07) | LOC: M ED 21:47 | DX: M79.604 Pain in right leg (principal); Z53.21 Procedure and treatment not carried out due to patient leaving prior to being seen by health care provider ==

== ENCOUNTER 2017-10-16 00:52 | Emergency (ER) | payer MEDICARE, MEDICAID | END 2017-10-16 03:20 | disposition left against medical advice (07) | LOC: M ED 00:52 | DX: R10.9 Unspecified abdominal pain (principal); Z53.21 Procedure and treatment not carried out due to patient leaving prior to being seen by health care provider ==

== ENCOUNTER 2017-11-16 10:23 | Emergency (ER) | payer MEDICARE, MEDICAID ==
[2017-11-16] MEDS: NS 1,000 ML IV (11:56)
[2017-11-16] MEDS: MORPHINE 4 MG/ML 1ML VIAL/SYRINGE (J2270) IV (11:56)
[2017-11-16 12:07] LABS: BASO # 0.1 10^3/uL (0.0-0.2); BASO % 0.6 % (0.0-1.0); EOS # 0.2 10^3/uL (0.0-0.50); EOS % 2.3 % (0.0-3.0); HEMATOCRIT 38.7 % (36.0-47.0); IMMATURE GRANULOCYTE % 0.4 % (0-3.0); LYMPH # 1.8 10^3/uL (1.5-4.5); MEAN CORPUSCULAR HEMOGLOBIN 26.9 pg (27.0-33.0); MEAN CORPUSCULAR HGB CONC 33.6 g/dl (32.0-36.5); MEAN CORPUSCULAR VOLUME 80.1 fl (80.0-96.0); MONO # 0.6 10^3/uL (0.0-0.8); MONO % 5.7 % (0.0-5.0); NEUTROPHILS # 6.9 10^3/uL (1.8-7.7); PLATELET COUNT, AUTOMATED 397 10^3/uL (150-450); RED BLOOD COUNT 4.83 10^6/uL (4.00-5.40); RED CELL DISTRIBUTION WIDTH 13.3 % (11.5-14.5); WHITE BLOOD COUNT 9.6 10^3/uL (4.0-10.0)
[2017-11-16 12:26] LABS: CONTROL LINE HCG INT CTR LINE PRESENT; HCG, SERUM QUALITATIVE NEGATIVE (NEGATIVE)
[2017-11-16 12:38] LABS: ALBUMIN 3.6 GM/DL (3.2-5.2); ALBUMIN/GLOBULIN RATIO 0.84 (1.00-1.93); ALKALINE PHOSPHATASE 85 U/L (45-117); ALT/SGPT 16 U/L (12-78); AMYLASE 34 U/L (25-115); ANION GAP 10 MEQ/L (8-16); AST/SGOT 7 U/L (7-37); BILIRUBIN,DIRECT 0.1 MG/DL (0.0-0.2); BILIRUBIN,TOTAL 0.5 MG/DL (0.2-1.0); BLOOD UREA NITROGEN 21 MG/DL (7-18); CALCIUM LEVEL 9.4 MG/DL (8.5-10.1); CARBON DIOXIDE LEVEL 21 MEQ/L (21-32); CHLORIDE LEVEL 103 MEQ/L (98-107); CREATININE FOR GFR 0.71 MG/DL (0.55-1.30); GLOMERULAR FILTRATION RATE > 60.0 (>58); GLUCOSE, FASTING 336 MG/DL (70-100); LIPASE 194 U/L (73-393); POTASSIUM SERUM 4.1 MEQ/L (3.5-5.1); SODIUM LEVEL 134 MEQ/L (136-145); TOTAL PROTEIN 7.9 GM/DL (6.4-8.2)
[2017-11-16] MEDS ORDERED: ISOVUE-370 76% 100ML VIAL (Q9967) As Ordered (12:50)
[2017-11-16] MEDS: HumuLIN R (REGULAR) INSULIN (NovoLIN R) **100U/ML** PER UNIT IV (14:57)
[2017-11-16 15:10] LABS: BEDSIDE GLUCOSE 231 MG/DL (70-105)
[2017-11-16 15:44] LABS: BEDSIDE GLUCOSE 171 MG/DL (70-105)
== END 2017-11-16 15:53 | disposition home or self-care (01) ==
LOC: M ED 10:23
DX: K43.9 Ventral hernia without obstruction or gangrene (principal); D25.9 Leiomyoma of uterus, unspecified; E11.65 Type 2 diabetes mellitus with hyperglycemia; K91.872 Postprocedural seroma of a digestive system organ or structure following a digestive system procedure; Y92.89 Other specified places as the place of occurrence of the external cause; G43.909 Migraine, unspecified, not intractable, without status migrainosus; K58.9 Irritable bowel syndrome, unspecified; K21.9 Gastro-esophageal reflux disease without esophagitis; Z87.19 Personal history of other diseases of the digestive system; F41.9 Anxiety disorder, unspecified; F31.9 Bipolar disorder, unspecified; F91.9 Conduct disorder, unspecified; Z91.013 Allergy to seafood; Z91.018 Allergy to other foods
CPT/HCPCS: J2270

== ENCOUNTER 2017-12-16 06:12 | Emergency (ER) | payer MEDICARE, MEDICAID ==
[2017-12-16] MEDS: ONDANSETRON 4 MG ORAL DISINTEGRATING TAB (Q0162 PER 1MG) PO (06:47)
[2017-12-16] MEDS: NORCO, ANEXSIA 5/325MG TABLET (HYDROcodone/ACETAMINOPHEN) PO (06:47)
[2017-12-16] MEDS: MAGNESIUM CITRATE 300 ML BTL PO (07:15)
== END 2017-12-16 07:28 | disposition home or self-care (01) ==
LOC: M ED 06:12
DX: R10.32 Left lower quadrant pain (principal); K59.00 Constipation, unspecified; E11.9 Type 2 diabetes mellitus without complications; I10 Essential (primary) hypertension; E66.9 Obesity, unspecified; F17.210 Nicotine dependence, cigarettes, uncomplicated; Z79.899 Other long term (current) drug therapy

== ENCOUNTER 2017-12-16 11:36 | Emergency (ER) | payer MEDICARE, MEDICAID ==
[2017-12-16 12:10] LABS: BASO # 0.1 10^3/uL (0.0-0.2); BASO % 0.4 % (0.0-1.0); EOS # 0.2 10^3/uL (0.0-0.50); EOS % 1.5 % (0.0-3.0); HEMATOCRIT 44.1 % (36.0-47.0); HEMOGLOBIN 14.2 g/dl (12.0-15.5); IMMATURE GRANULOCYTE % 0.6 % (0-3.0); LYMPH # 1.7 10^3/uL (1.5-4.5); LYMPH % 10.7 % (24.0-44.0); MEAN CORPUSCULAR HEMOGLOBIN 26.3 pg (27.0-33.0); MEAN CORPUSCULAR HGB CONC 32.2 g/dl (32.0-36.5); MEAN CORPUSCULAR VOLUME 81.8 fl (80.0-96.0); MONO # 0.6 10^3/uL (0.0-0.8); MONO % 4.1 % (0.0-5.0); NEUTROPHILS # 12.8 10^3/uL (1.8-7.7); NEUTROPHILS % 82.7 % (36.0-66.0); PLATELET COUNT, AUTOMATED 475 10^3/uL (150-450); RED BLOOD COUNT 5.39 10^6/uL (4.00-5.40); RED CELL DISTRIBUTION WIDTH 13.8 % (11.5-14.5); WHITE BLOOD COUNT 15.5 10^3/uL (4.0-10.0)
[2017-12-16] MEDS: DICYCLOMINE INJ 20MG/2ML (J0500) IM (12:33)
[2017-12-16] MEDS: NS 1,000 ML IV ×2 (12:33→15:51)
[2017-12-16] MEDS: PROMETHAZINE INJ 25 MG/ML VIAL (J2550) IV ×2 (12:33→15:32)
[2017-12-16 12:51] LABS: ALBUMIN 3.8 GM/DL (3.2-5.2); ALBUMIN/GLOBULIN RATIO 1.06 (1.00-1.93); ALKALINE PHOSPHATASE 105 U/L (45-117); ALT/SGPT 22 U/L (12-78); ANION GAP 12 MEQ/L (8-16); AST/SGOT 8 U/L (7-37); BILIRUBIN,DIRECT 0.2 MG/DL (0.0-0.2); BILIRUBIN,TOTAL 0.8 MG/DL (0.2-1.0); BLOOD UREA NITROGEN 15 MG/DL (7-18); CALCIUM LEVEL 9.4 MG/DL (8.5-10.1); CARBON DIOXIDE LEVEL 24 MEQ/L (21-32); CHLORIDE LEVEL 101 MEQ/L (98-107); CREATININE FOR GFR 0.64 MG/DL (0.55-1.30); GLOMERULAR FILTRATION RATE > 60.0 (>58); GLUCOSE, FASTING 234 MG/DL (70-100); LIPASE 99 U/L (73-393); POTASSIUM SERUM 4.9 MEQ/L (3.5-5.1); SODIUM LEVEL 137 MEQ/L (136-145); TOTAL PROTEIN 7.4 GM/DL (6.4-8.2)
[2017-12-16 12:55] LABS: CONTROL LINE HCG INT CTR LINE PRESENT; HCG, SERUM QUALITATIVE NEGATIVE (NEGATIVE)
[2017-12-16] MEDS ORDERED: ISOVUE-370 76% 100ML VIAL (Q9967) As Ordered (13:02)
[2017-12-16] MEDS: ONDANSETRON 4MG/2ML VIAL (J2405) IV (13:46)
[2017-12-16] MEDS: MORPHINE 4 MG/ML 1ML VIAL/SYRINGE (J2270) IV ×2 (15:32→17:13)
[2017-12-16] MEDS ORDERED: NS 1,000 ML IV (16:30)
== END 2017-12-16 17:52 | disposition short-term general hospital (02) ==
LOC: M ED 11:36
DX: K43.6 Other and unspecified ventral hernia with obstruction, without gangrene (principal); K91.872 Postprocedural seroma of a digestive system organ or structure following a digestive system procedure; R10.32 Left lower quadrant pain; K59.00 Constipation, unspecified; E11.9 Type 2 diabetes mellitus without complications; I10 Essential (primary) hypertension; E66.9 Obesity, unspecified; K21.9 Gastro-esophageal reflux disease without esophagitis; F17.210 Nicotine dependence, cigarettes, uncomplicated; Z79.899 Other long term (current) drug therapy
CPT/HCPCS: J2270

== ENCOUNTER 2018-01-08 00:57 | Emergency (ER) | payer MEDICARE, MEDICAID ==
[2018-01-08] MEDS ORDERED: ACETAMINOPHEN 325 MG TAB As Ordered (01:39)
[2018-01-08] MEDS: ACETAMINOPHEN 325 MG TAB PO (01:42)
== END 2018-01-08 02:30 | disposition home or self-care (01) ==
LOC: M ED 00:57
DX: G57.11 Meralgia paresthetica, right lower limb (principal); E11.9 Type 2 diabetes mellitus without complications; E66.01 Morbid (severe) obesity due to excess calories; Z68.41 Body mass index [BMI] 40.0-44.9, adult; G43.909 Migraine, unspecified, not intractable, without status migrainosus; K21.9 Gastro-esophageal reflux disease without esophagitis; Z91.013 Allergy to seafood; Z91.018 Allergy to other foods; Z79.84 Long term (current) use of oral hypoglycemic drugs
CPT/HCPCS: 93971

== ENCOUNTER 2018-02-19 04:25 | Inpatient (IN) | payer MEDICARE, MEDICAID ==
[2018-02-19] MEDS ORDERED: ONDANSETRON 4MG/2ML VIAL (J2405) As Ordered (04:29)
[2018-02-19 04:49] LABS: BASO # 0.1 10^3/uL (0.0-0.2); BASO % 0.3 % (0.0-1.0); EOS # 0.2 10^3/uL (0.0-0.50); EOS % 0.7 % (0.0-3.0); HEMATOCRIT 41.3 % (36.0-47.0); HEMOGLOBIN 13.3 g/dl (12.0-15.5); IMMATURE GRANULOCYTE % 0.4 % (0-3.0); LYMPH % 4.6 % (24.0-44.0); MEAN CORPUSCULAR HEMOGLOBIN 25.8 pg (27.0-33.0); MEAN CORPUSCULAR HGB CONC 32.2 g/dl (32.0-36.5); MONO % 4.4 % (0.0-5.0); NEUTROPHILS # 19.2 10^3/uL (1.8-7.7); NEUTROPHILS % 89.6 % (36.0-66.0); PLATELET COUNT, AUTOMATED 450 10^3/uL (150-450); RED BLOOD COUNT 5.16 10^6/uL (4.00-5.40); RED CELL DISTRIBUTION WIDTH 13.4 % (11.5-14.5); WHITE BLOOD COUNT 21.4 10^3/uL (4.0-10.0)
[2018-02-19] MEDS: NS 1,000 ML IV (04:56)
[2018-02-19] MEDS: METOCLOPRAMIDE INJ 10MG/2ML VIAL (J2765) IV (04:56)
[2018-02-19 05:08] LABS: CONTROL LINE HCG INT CTR LINE PRESENT; HCG, SERUM QUALITATIVE NEGATIVE (NEGATIVE)
[2018-02-19 05:19] LABS: ALBUMIN 3.5 GM/DL (3.2-5.2); ALBUMIN/GLOBULIN RATIO 0.97 (1.00-1.93); ALKALINE PHOSPHATASE 112 U/L (45-117); ALT/SGPT 16 U/L (12-78); ANION GAP 11 MEQ/L (8-16); AST/SGOT 8 U/L (7-37); BILIRUBIN,DIRECT 0.2 MG/DL (0.0-0.2); BILIRUBIN,TOTAL 0.5 MG/DL (0.2-1.0); BLOOD UREA NITROGEN 17 MG/DL (7-18); CALCIUM LEVEL 8.2 MG/DL (8.5-10.1); CARBON DIOXIDE LEVEL 24 MEQ/L (21-32); CHLORIDE LEVEL 101 MEQ/L (98-107); CK-MB VALUE MASS < 1.0 NG/ML (<3.6); CPK CREATINE PHOSPHOKINASE 38 U/L (26-192); CREATININE FOR GFR 0.66 MG/DL (0.55-1.30); GLOMERULAR FILTRATION RATE > 60.0 (>58); GLUCOSE, FASTING 353 MG/DL (70-100); LIPASE 131 U/L (73-393); MB/CK RELATIVE INDEX 2.63 (< OR =4); POTASSIUM SERUM 4.1 MEQ/L (3.5-5.1); SODIUM LEVEL 136 MEQ/L (136-145); TOTAL PROTEIN 7.1 GM/DL (6.4-8.2); TROPONIN I < 0.02 NG/ML (< 0.10)
[2018-02-19] MEDS ORDERED: ISOVUE-370 76% 100ML VIAL (Q9967) As Ordered (05:54)
[2018-02-19] MEDS: KETOROLAC 30 MG/ML VIAL (J1885) IV (06:00)
[2018-02-19 06:36] LABS: INFLUENZA A AMPLIFICATION NEGATIVE (NEGATIVE); INFLUENZA B AMPLIFICATION NEGATIVE (NEGATIVE); RSV AMPLIFICATION NEGATIVE (NEGATIVE)
[2018-02-19 06:49] LABS: LACTIC ACID SEPSIS PROTOCOL 1.6 MMOL/L (0.4-2.0)
[2018-02-19] MEDS: PIPERACILLIN/TAZOBACTAM SOD 3.375 GM in D5W MINI-BAG PLUS 50 ML IV (07:52)
[2018-02-19] MEDS ORDERED: DEXTROSE 50% 50 ML SYRINGE IV (08:45)
[2018-02-19] MEDS ORDERED: GLUCAGON FOR INJ 1 MG VIAL (J1610) SC (08:45)
[2018-02-19] MEDS ORDERED: ONDANSETRON 4MG/2ML VIAL (J2405) IV (08:45)
[2018-02-19] MEDS ORDERED: ACETAMINOPHEN TAB 650MG DOSE (2X325MG) PO (08:45)
[2018-02-19] MEDS ORDERED: GLUCOSE 4 GM CHEW TABLET PO (08:45)
[2018-02-19] MEDS ORDERED: PERCOCET 5MG/325MG TAB PO ×2 (08:45)
[2018-02-19] MEDS: MORPHINE 4 MG/ML 1ML VIAL/SYRINGE (J2270) IV (09:29)
[2018-02-19] MEDS: LR 1,000 ML IV (09:29)
[2018-02-19] MEDS: PANTOPRAZOLE 40MG INJ (PROTONIX) (C9113) IV (10:20)
[2018-02-19] MEDS ORDERED: KETOROLAC 30 MG/ML VIAL (J1885) IV (12:00)
[2018-02-19] MEDS: HEPARIN SOD (PORCINE) 5000 UNITS/ML VIAL SC (13:25)
[2018-02-19] MEDS: CEPACOL LOZENGE PO (13:25)
== END 2018-02-19 14:30 | disposition left against medical advice (07) | DRG 394 ==
LOC: M ED 04:25 → M ED INP 08:36 → M MSPAV 10:51
DX: K43.0 Incisional hernia with obstruction, without gangrene (principal); K56.609 Unspecified intestinal obstruction, unspecified as to partial versus complete obstruction; Z68.41 Body mass index [BMI] 40.0-44.9, adult; E66.01 Morbid (severe) obesity due to excess calories; Z91.013 Allergy to seafood; Z91.018 Allergy to other foods; F31.9 Bipolar disorder, unspecified; E11.9 Type 2 diabetes mellitus without complications; G47.33 Obstructive sleep apnea (adult) (pediatric); N83.292 Other ovarian cyst, left side; D25.9 Leiomyoma of uterus, unspecified; K80.20 Calculus of gallbladder without cholecystitis without obstruction

== ENCOUNTER 2018-04-05 23:21 | Inpatient (IN) | payer MEDICARE, MEDICAID ==
[~2018-04-05] VITALS: Ht 167.6 cm; Wt 104.5 kg
[~2018-04-05 23:21] MED LIST changes: +ACET1TAB55 PO; +IBUP80TA PO; +METF10004 PO; +METF500T4 PO; +MIRA3350 PO; +ONDA4TAB6; +TRAN650T PO; +ZOFR4TAB14 PO
[2018-04-05] MEDS ORDERED: METOCLOPRAMIDE INJ 10MG/2ML VIAL (J2765) IV ONE (23:45)
[2018-04-05] MEDS ORDERED: NS 1,000 ML IV ONE (23:45)
[2018-04-06 00:16] LABS: BASO # 0.1 10^3/uL (0.0-0.2); BASO % 0.4 % (0.0-1.0); EOS # 0.1 10^3/uL (0.0-0.50); HEMOGLOBIN 13.2 g/dl (12.0-15.5); LYMPH # 1.2 10^3/uL (1.5-4.5); LYMPH % 9.2 % (24.0-44.0); MEAN CORPUSCULAR HEMOGLOBIN 25.8 pg (27.0-33.0); MEAN CORPUSCULAR HGB CONC 32.2 g/dl (32.0-36.5); MEAN CORPUSCULAR VOLUME 80.1 fl (80.0-96.0); MONO # 0.6 10^3/uL (0.0-0.8); MONO % 4.5 % (0.0-5.0); NEUTROPHILS # 10.7 10^3/uL (1.8-7.7); NEUTROPHILS % 84.6 % (36.0-66.0); PLATELET COUNT, AUTOMATED 425 10^3/uL (150-450); RED BLOOD COUNT 5.12 10^6/uL (4.00-5.40); WHITE BLOOD COUNT 12.6 10^3/uL (4.0-10.0)
[2018-04-06] MEDS: MORPHINE 4 MG/ML 1ML VIAL/SYRINGE (J2270) IV PRN ×5 (00:29→09:06)
[2018-04-06] MEDS ORDERED: ISOVUE-370 76% 100ML VIAL (Q9967) As Ordered ONE (00:32)
[2018-04-06 01:00] LABS: ALBUMIN 3.7 GM/DL (3.2-5.2); ALT/SGPT 15 U/L (12-78); BILIRUBIN,DIRECT 0.2 MG/DL (0.0-0.2); BILIRUBIN,TOTAL 0.6 MG/DL (0.2-1.0); BLOOD UREA NITROGEN 13 MG/DL (7-18); CALCIUM LEVEL 9.1 MG/DL (8.5-10.1); CARBON DIOXIDE LEVEL 25 MEQ/L (21-32); CHLORIDE LEVEL 101 MEQ/L (98-107); CREATININE FOR GFR 0.63 MG/DL (0.55-1.30); GLOMERULAR FILTRATION RATE > 60.0 (>58); GLUCOSE, FASTING 334 MG/DL (70-100); LIPASE 109 U/L (73-393); SODIUM LEVEL 138 MEQ/L (136-145); TOTAL PROTEIN 7.3 GM/DL (6.4-8.2)
--- NOTE | 2018-04-06 02:19 | REPVR ---
EXAM: CT Abdomen and Pelvis With Contrast EXAM DATE/TIME: 04/05/2018 11:45 PM CLINICAL HISTORY: 42 years old, female; Pain; Abdominal pain; Generalized; Prior surgery; Surgery date: 6+ months; Surgery type: Hernia mesh; Additional info: Abd pain, intractable vomiting, HX of sbo TECHNIQUE: Axial computed tomography images of the abdomen and pelvis with intravenous contrast. All CT scans at this facility use at least one of these dose optimization techniques: automated exposure control; mA and/or kV adjustment per patient size (includes targeted exams where dose is matched to clinical indication); or iterative reconstruction. Coronal and sagittal reformatted images were created and reviewed. CONTRAST: 100 ml of iso administered intravenously. COMPARISON: CT ABD/PEL W/IV CONTRAST ONLY 02/19/2018 5:58 AM FINDINGS: Lower thorax: Mild ground glass densities are visualized lung bases likely edema. ABDOMEN: Liver: Mild diffuse fatty infiltration of liver. Gallbladder and bile ducts: Normal. No calcified stones. No ductal dilation. Pancreas: Normal. No ductal dilation. Spleen: Normal. No splenomegaly. Adrenals: 4 mm fat containing density in the left adrenal gland likely representing tiny myelolipoma. Right adrenal gland is unremarkable. Kidneys and ureters: Normal. No hydronephrosis. Stomach and bowel: Few scattered colonic diverticula without CT evidence of diverticulitis. Multiple dilated fluid filled small bowel loops with mucosal enhancement, small amount of free fluid between the dilated bowel loops, and mesenteric edema . Dilated small bowel loops extending into the anterior abdominal wall large hernia with dilated affarent and decompressed efferent loops. Fluid and haziness within the hernia sac along with dilated small bowel loops. Findings are concerning for incarcerated hernia with small bowel obstruction. Appendix: Normal appendix. PELVIS: Bladder: Unremarkable as visualized. Reproductive: Enlarged lobulated uterus likely representing fibroids. Partially calcified fibroid at the fundus of the uterus measuring 26 x 41 mm. ABDOMEN and PELVIS: Intraperitoneal space: Normal. No free air. No significant fluid collection. Bones/joints: No acute fracture. No dislocation. Soft tissues: Unremarkable. Vasculature: Normal. No abdominal aortic aneurysm. Lymph nodes: Normal. No enlarged lymph nodes. IMPRESSION: Multiple dilated fluid filled small bowel loops with mucosal enhancement, small amount of free fluid between the dilated bowel loops, and mesenteric edema . Dilated small bowel loops extending into the anterior abdominal wall large hernia with dilated affarent and decompressed efferent loops. Fluid and haziness within the hernia sac along with dilated small bowel loops. Findings are concerning for incarcerated hernia with small bowel obstruction. No perforation. Electronically signed by: Trina Bonner On 04/06/2018 02:18:49 AM
[2018-04-06] MEDS ORDERED: MORPHINE 4 MG/ML 1ML VIAL/SYRINGE (J2270) As Ordered ONE (02:29)
[2018-04-06] MEDS ORDERED: METOCLOPRAMIDE INJ 10MG/2ML VIAL (J2765) IV ONE (02:30)
[2018-04-06] MEDS ORDERED: NS 1,000 ML IV SCH ×2 (08:45→11:27)
[2018-04-06] MEDS ORDERED: PANTOPRAZOLE 40MG INJ (PROTONIX) (C9113) IV SCH (09:00)
[2018-04-06] MEDS ORDERED: ENOXAPARIN 40 MG/0.4 ML SYRINGE (J1650) SC SCH (09:00)
[2018-04-06] MEDS ORDERED: NORCO, ANEXSIA 5/325MG TABLET (HYDROcodone/ACETAMINOPHEN) PO PRN (11:30)
[2018-04-06] MEDS ORDERED: ONDANSETRON 4MG/2ML VIAL (J2405) IV PRN (11:30)
[2018-04-06] MEDS ORDERED: KETOROLAC 30 MG/ML VIAL (J1885) IV PRN (11:30)
[2018-04-06] MEDS ORDERED: ACETAMINOPHEN TAB 650MG DOSE (2X325MG) PO PRN (11:30)
[2018-04-06] MEDS ORDERED: MORPHINE 4 MG/ML 1ML VIAL/SYRINGE (J2270) IV PRN (11:30)
[2018-04-06 11:55] VITALS: BP 160/88
[2018-04-06] MEDS ORDERED: PIPERACILLIN/TAZOBACTAM SOD 3.375 GM in D5W MINI-BAG PLUS 50 ML IV SCH (12:00)
--- NOTE | 2018-04-06 12:08 | HPE ---
DATE OF ADMISSION: 04/06/2018 CHIEF COMPLAINT: Abdominal pain, nausea, and vomiting. HISTORY OF PRESENT ILLNESS: The patient is a 42-year-old female. Is known to our service for having loss of domain, having a complicated abdominal wall hernia with intermittent obstructions. Last evaluated by me in the beginning of December. Since then, she has also seen Dr. Sanchez for similar problems, as well as surgeons down at [facility]. She presents today with similar complaints of crampy abdominal pains, nausea, and vomiting. In the emergency room (ER), she has a slightly elevated white count. CAT scan findings consistent with likely partial versus complete small bowel obstruction due to incarceration in her abdominal wall hernia. Lactic acid is normal. Her nasogastric (NG) tube has been placed already. She has mild improvement with the NG tube in place. Denies any fevers or chills. Abdominal pain is improved. No current complaints other than that. No changes in diet recently. She would like to avoid surgery at all costs. However, I explained to her that this is not something that is going to go away on its own. If she does not get this fixed when she is healthy, emergent surgeries are going to just continue to happen until she can get this properly repaired. She was advised last December to have a proper repair with abdominal wall component separation. However, she never followed up to have that looked into because she did not want to have any surgeries. PAST MEDICAL HISTORY: Bipolar. Diabetes. Obesity. Sleep apnea. PAST SURGICAL HISTORY: Tonsillectomy. Pilonidal cystectomy. (C) section. Multiple whole abdominal ventral hernia repairs with bowel obstructions. SOCIAL HISTORY: Smokes a pack a day. Denies drug or alcohol abuse. FAMILY HISTORY: Noncontributory. REVIEW OF SYSTEMS: Pertinent positives and negative as stated in the history of present illness (HPI). PHYSICAL EXAMINATION: General: Alert and oriented times three. No acute distress. Vital signs: Temperature 96.7, pulse 105, respirations 16, blood pressure 155/78, pulse oximetry 95% on room air. HEENT: Pupils equal, round, react to light and accommodation. Heart: S1, S2, regular rate and rhythm. Lungs: Clear to auscultation bilaterally. Abdomen: Soft, obese, mild tenderness at most. No distinct hernias are easily identifiable due to the dimensions of her abdominal wall. There is a large pannus with loss of domain on the anterior abdomen. No tenderness to palpation in the midline. Extremities: No clubbing, cyanosis, or edema. LABORATORIES: White count of 12.6, hemoglobin 13.2, platelets 425, lactic acid 1.7, creatinine 0.63, albumin 3.7. ASSESSMENT AND PLAN: The patient is a 42-year-old female with signs and symptoms consistent with partial versus complete small bowel obstruction due incarcerated ventral hernia. Recommendation at this time is to proceed with medical management, intravenous (IV) fluids, antibiotics, NG tube decompression. Once she shows sign of flatus and bowel movements and decreased NG output, will remove the NG and start her on a diet. Will plan to discharge home over the next 24-72 hours. During her last admission, once she started to feel better, she removed the NG tube herself and left against medical advice (AMA). I explained to her in detail how important it is to have this repaired electively when she is healthy. That way, she can have it done properly with mesh placement as opposed to having it done as an emergency with a bowel resection and inflammation where they would not be able to use mesh, which would result in high recurrence rates. She verbalizes understanding that this needs to be done as a one-time repair, and I will make sure to give her a referral again upon discharge.
[2018-04-06] MEDS ORDERED: SENOKOT S TAB PO SCH (21:00)
== END 2018-04-06 12:20 | disposition left against medical advice (07) | DRG 395 ==
LOC: M ED 23:21 → M ED INP 04-06 11:27
PROVIDERS: ADMIT Surgery; ATTEND Surgery
DX: K43.6 Other and unspecified ventral hernia with obstruction, without gangrene (principal); F17.200 Nicotine dependence, unspecified, uncomplicated; F31.9 Bipolar disorder, unspecified; E66.9 Obesity, unspecified; G47.30 Sleep apnea, unspecified; E11.9 Type 2 diabetes mellitus without complications

== ENCOUNTER 2018-04-07 06:46 | Inpatient (IN) | payer MEDICARE, MEDICAID ==
[~2018-04-07] VITALS: Ht 157.5 cm; Wt 102.3 kg
[2018-04-07] MEDS ORDERED: NS 1,000 ML IV SCH (07:18)
[2018-04-07] MEDS ORDERED: METOCLOPRAMIDE INJ 10MG/2ML VIAL (J2765) IV ONE (07:30)
[2018-04-07 07:40] LABS: BASO % 0.4 % (0.0-1.0); EOS # 0.1 10^3/uL (0.0-0.50); EOS % 1.6 % (0.0-3.0); HEMATOCRIT 38.5 % (36.0-47.0); HEMOGLOBIN 12.2 g/dl (12.0-15.5); LYMPH # 1.2 10^3/uL (1.5-4.5); LYMPH % 14.6 % (24.0-44.0); MEAN CORPUSCULAR HEMOGLOBIN 25.6 pg (27.0-33.0); MEAN CORPUSCULAR HGB CONC 31.7 g/dl (32.0-36.5); MEAN CORPUSCULAR VOLUME 80.9 fl (80.0-96.0); MONO # 0.5 10^3/uL (0.0-0.8); MONO % 6.7 % (0.0-5.0); NEUTROPHILS # 6.2 10^3/uL (1.8-7.7); NEUTROPHILS % 76.3 % (36.0-66.0); PLATELET COUNT, AUTOMATED 431 10^3/uL (150-450); RED BLOOD COUNT 4.76 10^6/uL (4.00-5.40); WHITE BLOOD COUNT 8.1 10^3/uL (4.0-10.0)
[2018-04-07 08:04] LABS: ALBUMIN 3.2 GM/DL (3.2-5.2); ALT/SGPT 12 U/L (12-78); BILIRUBIN,DIRECT 0.2 MG/DL (0.0-0.2); BILIRUBIN,TOTAL 0.8 MG/DL (0.2-1.0); BLOOD UREA NITROGEN 14 MG/DL (7-18); CALCIUM LEVEL 8.6 MG/DL (8.5-10.1); CARBON DIOXIDE LEVEL 27 MEQ/L (21-32); CHLORIDE LEVEL 101 MEQ/L (98-107); CREATININE FOR GFR 0.58 MG/DL (0.55-1.30); GLOMERULAR FILTRATION RATE > 60.0 (>58); GLUCOSE, FASTING 298 MG/DL (70-100); LIPASE 66 U/L (73-393); POTASSIUM SERUM 3.5 MEQ/L (3.5-5.1); SODIUM LEVEL 136 MEQ/L (136-145); TOTAL PROTEIN 6.8 GM/DL (6.4-8.2)
--- NOTE | 2018-04-07 08:17 | REP ---
Clinical: Epigastric and abdominal pain. Technique: Upright view of the chest with supine and upright views of the abdomen and pelvis. Findings: Frontal upright view of the chest demonstrates no acute cardiopulmonary process or free air below the diaphragm to suspect pneumoperitoneum. Supine and upright views of the abdomen and pelvis demonstrate dilated loops of small bowel with a few air-fluid levels suggesting early versus partial small bowel obstruction. No organomegaly. No abnormal calcifications. Skeletal structures are intact. A calcified myoma in the pelvis. Impression: Findings compatible with early versus partial small bowel obstruction. Electronically Signed by Diaz Matthew MD 04/07/2018 08:09 A
[2018-04-07] MEDS ORDERED: MORPHINE 4 MG/ML 1ML VIAL/SYRINGE (J2270) IV PRN (08:30)
[2018-04-07] MEDS: SENOKOT S TAB PO SCH ×2 (09:00→21:00)
[2018-04-07] MEDS: NS 1,000 ML IV SCH ×2 (09:44→17:39)
[2018-04-07] MEDS ORDERED: GLUCOSE 4 GM CHEW TABLET PO PRN (09:45)
[2018-04-07] MEDS ORDERED: ACETAMINOPHEN TAB 650MG DOSE (2X325MG) PO PRN (09:45)
[2018-04-07] MEDS ORDERED: GLUCAGON FOR INJ 1 MG VIAL (J1610) SC PRN (09:45)
[2018-04-07] MEDS ORDERED: ONDANSETRON 4MG/2ML VIAL (J2405) IV PRN (09:45)
[2018-04-07] MEDS ORDERED: DEXTROSE 50% 50 ML SYRINGE IV PRN (09:45)
[2018-04-07] MEDS: PANTOPRAZOLE 40MG INJ (PROTONIX) (C9113) IV SCH (10:54)
[2018-04-07] MEDS: MORPHINE 4 MG/ML 1ML VIAL/SYRINGE (J2270) IV PRN ×3 (10:58→18:56)
[2018-04-07] MEDS: PIPERACILLIN/TAZOBACTAM SOD 3.375 GM in D5W MINI-BAG PLUS 50 ML IV SCH ×3 (11:00→23:24)
[2018-04-07 11:50] VITALS: BP 140/87
[2018-04-07 14:00] VITALS: BP 162/96
[2018-04-07] MEDS: HEPARIN SOD (PORCINE) 5000 UNITS/ML VIAL SC SCH ×2 (14:00→21:22)
[2018-04-07] MEDS: KETOROLAC 30 MG/ML VIAL (J1885) IV PRN ×2 (17:39→23:48)
[2018-04-07 18:00] VITALS: BP 152/90
[2018-04-07 20:40] VITALS: BP 152/82
[2018-04-07 22:00] VITALS: BP 152/82
[2018-04-08] VITALS (7 sets, daily range): BP systolic 131–172; BP diastolic 75–95
[2018-04-08] MEDS: NS 1,000 ML IV SCH ×3 (01:44→17:27)
[2018-04-08] MEDS: PIPERACILLIN/TAZOBACTAM SOD 3.375 GM in D5W MINI-BAG PLUS 50 ML IV SCH ×4 (05:30→21:33)
[2018-04-08] MEDS: HEPARIN SOD (PORCINE) 5000 UNITS/ML VIAL SC SCH ×3 (05:30→21:33)
[2018-04-08] MEDS: KETOROLAC 30 MG/ML VIAL (J1885) IV PRN ×2 (05:31→14:54)
[2018-04-08 07:28] LABS: HEMATOCRIT 33.6 % (36.0-47.0); HEMOGLOBIN 10.5 g/dl (12.0-15.5); MEAN CORPUSCULAR HEMOGLOBIN 25.9 pg (27.0-33.0); MEAN CORPUSCULAR HGB CONC 31.3 g/dl (32.0-36.5); PLATELET COUNT, AUTOMATED 337 10^3/uL (150-450); RED BLOOD COUNT 4.05 10^6/uL (4.00-5.40); WHITE BLOOD COUNT 8.6 10^3/uL (4.0-10.0)
[2018-04-08 07:44] LABS: BLOOD UREA NITROGEN 14 MG/DL (7-18); CARBON DIOXIDE LEVEL 27 MEQ/L (21-32); CHLORIDE LEVEL 105 MEQ/L (98-107); CREATININE FOR GFR 0.61 MG/DL (0.55-1.30); GLOMERULAR FILTRATION RATE > 60.0 (>58); GLUCOSE, FASTING 207 MG/DL (70-100); POTASSIUM SERUM 3.2 MEQ/L (3.5-5.1); SODIUM LEVEL 140 MEQ/L (136-145)
[2018-04-08] MEDS: PANTOPRAZOLE 40MG INJ (PROTONIX) (C9113) IV SCH (09:34)
[2018-04-08] MEDS: SENOKOT S TAB PO SCH ×2 (10:33→20:07)
[2018-04-08] MEDS: NORCO, ANEXSIA 5/325MG TABLET (HYDROcodone/ACETAMINOPHEN) PO PRN ×2 (11:48→20:08)
--- NOTE | 2018-04-08 11:58 | IPNPDOC ---
Text Note Date of Service The patient was seen on 04/08/18. NOTE No acute events overnight. Denies nausea or emesis. Denies SOB, chest pain. She is having multiple small BMs, yet her NGT output is still bilious. NG - 250 bilious BM - 4 VSSAF overnight NAD abd - soft, slight diffuse tenderness, slightly less distended today, no signs o f peritonitis labs - below A) 42y/o female with partial vs. complete SBO secondary to incarcerated ventral hernias P)ambulate abx NGT to LIS for another 24 hours await return of bowel function likely clamp NG tomorrow and start diet Ahsan Cox DO VS,Fishbone, I+O VS, Fishbone, I+O Laboratory Tests 04/08/18 06:55 Red Blood Count 4.05, Mean Corpuscular Volume 83.0, Mean Corpuscular Hemoglobin 25.9 L, Mean Corpuscular Hemoglobin Concent 31.3 L, Red Cell Distribution Width 13.9 04/08/18 06:56 Calcium Level 8.0 L Vital Signs Date Time Temp Pulse Resp B/P (MAP) Pulse Ox O2 Delivery O2 Flow Rate FiO2 04/08/18 11:48 18 04/08/18 08:12 99.2 66 143/86 (105) 95 04/07/18 11:15 Room Air I&O- Last 24 Hours up to 6 AM 04/08/18 06:00 Intake Total 1270 ml Output Total 950 ml Balance 320 ml JODY COX DO Apr 08, 2018 11:58
--- NOTE | 2018-04-08 13:27 | HPE ---
DATE OF ADMISSION: 04/07/2018 CHIEF COMPLAINT: Abdominal pain, nausea and vomiting. HISTORY OF PRESENT ILLNESS: The patient is a 42-year-old female. She was just here in the emergency room yesterday for the same thing. She can see my history and physical that was completed yesterday as well. The plan yesterday was admit to the hospital and monitor as a partial versus complete small bowel obstruction. However, after the nasogastric (NG) tube was in place for a couple of hours she felt like it was all improved and she decided to leave against medical advice (AMA). She left yesterday. Overnight things got worse again and she came back in this morning with the same complaints. This morning her labs are normal aside from her blood sugar being slightly elevated. Just abdominal x-ray shows possible early partial small-bowel obstruction versus an ileus. I told the emergency room (ER) that at this time there is no reason to repeat a CT since she just had one 24 hours ago. We will just admit her and proceed with the plan as stated yesterday. PAST MEDICAL HISTORY: 1. Bipolar. 2. Diabetes. 3. Obesity. 4. Sleep apnea. PAST SURGICAL HISTORY: 1. Tonsillectomy. 2. Pilonidal cystectomy. 3. (C) section. 4. Multiple abdominal ventral hernia repairs with bowel obstructions and bowel resections. SOCIAL HISTORY: Smokes a pack a day. Denies drug or alcohol abuse. FAMILY HISTORY: Noncontributory. REVIEW OF SYSTEMS: Pertinent positives and negatives stated in the history of present illness (HPI). PHYSICAL EXAMINATION: General: Alert and oriented times three. No acute distress. Vital signs: Temperature 97.4, pulse 84, respirations 18, blood pressure 146/77, pulse oximetry 95% room air. HEENT: Pupils equal, round and react to light and accommodation. Heart: S1, S2. Regular rate and rhythm. Lungs: Clear to auscultation bilaterally. Abdomen: Soft, obese, loss of domain of the center of the abdomen. Mild tenderness mainly around the umbilicus. No distinct palpable hernias are identified. Extremities: No clubbing, cyanosis or edema. LABS: White count 8.1, hemoglobin 12.2, and platelets 431. Potassium 3.5, creatinine 0.58, albumin 3.2, lipase 66. IMAGING: Abdominal x-ray shows findings compatible with early versus partial small bowel obstruction. ASSESSMENT AND PLAN: Again, 42-year-old female with partial versus complete small bowel obstruction due to likely incarcerated ventral incisional hernias. Recommendation is intravenous (IV) fluids, antibiotics, NG tube and nothing by mouth. Will monitor her like this. Wait for signs of bowel movements, flatus and decreased NG output. As long as she is improving within the next 48-72 hours, we will remove the NG tube and slowly advance her diet. Will plan to discharge home. If she does not improve and requires an operation, it will be an emergent operation with plans to relieve the obstruction however necessary. Likely will not be able to adequately repair the hernia at this time due to her loss of domain and very weak fascia. I explained to her again in detail the reason that she needs to have this fixed electively with a component release repair to prevent this from becoming a recurrent problem. She verbalizes understanding. However, I had the same discussion with her yesterday and she left AMA. I know the nurses reiterated it to her yesterday as well before she left. She returned again today. I suspect that once she feels better she may likely leave AMA again. However, I explained to her how important is that she get this fixed and she says that she will not leave AMA again. She also told that to Dr. Ortiz in the ER as well. We will continue to watch her with further recommendations to follow.
[2018-04-08] MEDS: POTASSIUM CHLORIDE 10 MEQ SR TABLET PO SCH ×2 (14:32→20:07)
[2018-04-08] MEDS ORDERED: GI COCKTAIL 50ML BTL(HYOSCYAMINE/MAALOX/LIDOCAINE VISCOUS)(1:3:1) PO ONE (15:15)
[2018-04-08] MEDS: CHLORASEPTIC SPRAY MT PRN (21:32)
[2018-04-09] MEDS: CHLORASEPTIC SPRAY MT PRN ×3 (00:34→11:03)
[2018-04-09] MEDS: NS 1,000 ML IV SCH ×2 (01:44→11:01)
[2018-04-09 02:00] VITALS: BP 138/72
[2018-04-09] MEDS: PIPERACILLIN/TAZOBACTAM SOD 3.375 GM in D5W MINI-BAG PLUS 50 ML IV SCH ×2 (05:50→10:48)
[2018-04-09] MEDS: HEPARIN SOD (PORCINE) 5000 UNITS/ML VIAL SC SCH ×2 (05:50→13:30)
[2018-04-09 06:00] VITALS: BP 156/77
[2018-04-09 06:20] LABS: HEMATOCRIT 32.4 % (36.0-47.0); MEAN CORPUSCULAR HEMOGLOBIN 25.6 pg (27.0-33.0); MEAN CORPUSCULAR HGB CONC 30.9 g/dl (32.0-36.5); MEAN CORPUSCULAR VOLUME 82.9 fl (80.0-96.0); PLATELET COUNT, AUTOMATED 318 10^3/uL (150-450); RED BLOOD COUNT 3.91 10^6/uL (4.00-5.40); WHITE BLOOD COUNT 5.4 10^3/uL (4.0-10.0)
[2018-04-09 06:39] LABS: BLOOD UREA NITROGEN 11 MG/DL (7-18); CALCIUM LEVEL 7.7 MG/DL (8.5-10.1); CARBON DIOXIDE LEVEL 26 MEQ/L (21-32); CHLORIDE LEVEL 107 MEQ/L (98-107); CREATININE FOR GFR 0.54 MG/DL (0.55-1.30); GLOMERULAR FILTRATION RATE > 60.0 (>58); GLUCOSE, FASTING 158 MG/DL (70-100); POTASSIUM SERUM 3.5 MEQ/L (3.5-5.1); SODIUM LEVEL 140 MEQ/L (136-145)
[2018-04-09] MEDS: KETOROLAC 30 MG/ML VIAL (J1885) IV PRN (07:27)
[2018-04-09 09:00] VITALS: BP 142/94
[2018-04-09] MEDS: SENOKOT S TAB PO SCH (09:00)
[2018-04-09] MEDS: POTASSIUM CHLORIDE 10 MEQ SR TABLET PO SCH (09:31)
[2018-04-09] MEDS: PANTOPRAZOLE 40MG INJ (PROTONIX) (C9113) IV SCH (09:32)
--- NOTE | 2018-04-09 09:57 | IPNPDOC ---
Text Note Date of Service The patient was seen on 04/09/18. NOTE No acute events overnight. Denies nausea or emesis. Denies SOB, chest pain. She is having multiple small BM and flatus. NG output is minimal, but it is still bilious. VSSAF NAD abd - soft, slight diffuse tenderness, slightly less distended today, no signs of peritonitis labs - below A) 42y/o female with partial vs. complete SBO secondary to incarcerated ventral hernias P)ambulate abx ck abd xray this am to evaluate for improvement. If improved, then I will clamp NGT and start on a diet. await return of bowel function Ahsan Cox DO VS,Fishbone, I+O VS, Fishsussye, I+O Laboratory Tests 04/09/18 06:02 Red Blood Count 3.91 L, Mean Corpuscular Volume 82.9, Mean Corpuscular Hemoglobin 25.6 L, Mean Corpuscular Hemoglobin Concent 30.9 L, Red Cell Distribution Width 13.8, Calcium Level 7.7 L Vital Signs Date Time Temp Pulse Resp B/P (MAP) Pulse Ox O2 Delivery O2 Flow Rate FiO2 04/09/18 09:00 98.3 54 17 142/94 (110) 96 04/07/18 11:15 Room Air I&O- Last 24 Hours up to 6 AM 04/09/18 06:00 Intake Total 1705 ml Output Total 825 ml Balance 880 ml JODY COX DO Apr 09, 2018 09:56
[2018-04-09 12:00] VITALS: BP 146/80
--- NOTE | 2018-04-09 20:22 | REP ---
Abdomen series: Three views. History: Small bowel obstruction. Comparison study: April 07, 2018. Findings: A nasogastric tube is seen entering the body of the stomach. There is no evidence of free subdiaphragmatic air. There is mild gaseous distension of the transverse colon with a few colonic air fluid levels. There one or two small bowel air-fluid levels in the left mid abdomen. A 5.8 cm densely calcified uterine leiomyoma is seen in the central pelvis. No other mass or organomegaly is seen. Impression: Large uterine leiomyoma densely calcified. NG tube in place. Mild gaseous distension of the transverse colon with 1 or 2 small bowel air-fluid levels. No evidence of free air. Electronically Signed by Diomedes Godfrey MD 04/09/2018 08:45 P
== END 2018-04-09 17:45 | disposition left against medical advice (07) | DRG 394 ==
LOC: M ED 06:46 → EDBD 06:46 → M ED INP 09:44 → M MS5PR 11:50
PROVIDERS: ADMIT Surgery; ATTEND Surgery
DX: K43.6 Other and unspecified ventral hernia with obstruction, without gangrene (principal); Z68.41 Body mass index [BMI] 40.0-44.9, adult; E11.9 Type 2 diabetes mellitus without complications; E66.9 Obesity, unspecified; F31.9 Bipolar disorder, unspecified; G47.30 Sleep apnea, unspecified; F17.200 Nicotine dependence, unspecified, uncomplicated

== ENCOUNTER 2018-06-01 18:44 | Emergency (ER) | payer MEDICARE, MEDICAID ==
[~2018-06-01] VITALS: Ht 157.5 cm; Wt 100.0 kg
[2018-06-01 18:44] VITALS: BP 143/88
[~2018-06-01 18:44] MED LIST changes: -/ACETCOD2T PO; +ACET1TAB15 PO; +HYDR-3715 PO; -NORCOTAB PO
[2018-06-01 19:10] LABS: APPEARANCE, URINE HAZY (CLEAR); BACTERIA, URINE AUTO NEGATIVE (NEGATIVE); BILIRUBIN, URINE AUTO NEGATIVE (NEGATIVE); BLOOD, URINE BLOOD 1+ (NEGATIVE); COLOR, URINE YELLOW (YELLOW); GLUCOSE, URINE (UA) AUTO 1+ mg/dL (NEGATIVE); KETONE, URINE AUTO TRACE mg/dL (NEGATIVE); LEUKOCYTE ESTERASE, URINE AUTO NEGATIVE (NEGATIVE); MUCUS, URINE SMALL (NEGATIVE); NITRITE, URINE AUTO NEGATIVE (NEGATIVE); PROTEIN, URINE AUTO NEGATIVE (NEGATIVE); RBC, URINE AUTO 4 /HPF (0-3); SPECIFIC GRAVITY URINE AUTO 1.023 (1.002-1.035); SQUAMOUS EPITHELIAL CELL UR AU 4 /HPF (0-6); WBC, URINE AUTO 0 /HPF (0-3)
== END 2018-06-01 19:55 | disposition left against medical advice (07) ==
LOC: M ED 18:44
DX: R11.2 Nausea with vomiting, unspecified (principal); R19.7 Diarrhea, unspecified; Z53.21 Procedure and treatment not carried out due to patient leaving prior to being seen by health care provider

== ENCOUNTER 2018-06-13 18:31 | Inpatient (IN) | payer MEDICARE, MEDICAID ==
[~2018-06-13] VITALS: Ht 157.5 cm; Wt 106.8 kg
[2018-06-13 19:30] VITALS: BP 150/87
[2018-06-13] MEDS ORDERED: NS 1,000 ML IV ONE (20:00)
[2018-06-13 20:07] LABS: BASO # 0.1 10^3/uL (0.0-0.2); BASO % 0.6 % (0.0-1.0); EOS # 0.2 10^3/uL (0.0-0.50); EOS % 2.4 % (0.0-3.0); HEMATOCRIT 35.5 % (36.0-47.0); HEMOGLOBIN 11.5 g/dl (12.0-15.5); LYMPH # 1.7 10^3/uL (1.5-4.5); LYMPH % 17.9 % (24.0-44.0); MEAN CORPUSCULAR HEMOGLOBIN 25.6 pg (27.0-33.0); MEAN CORPUSCULAR HGB CONC 32.4 g/dl (32.0-36.5); MEAN CORPUSCULAR VOLUME 79.1 fl (80.0-96.0); MONO # 0.4 10^3/uL (0.0-0.8); MONO % 4.6 % (0.0-5.0); NEUTROPHILS # 7.2 10^3/uL (1.8-7.7); NEUTROPHILS % 74.3 % (36.0-66.0); PLATELET COUNT, AUTOMATED 381 10^3/uL (150-450); RED BLOOD COUNT 4.49 10^6/uL (4.00-5.40); WHITE BLOOD COUNT 9.7 10^3/uL (4.0-10.0)
[2018-06-13 20:11] LABS: HCG, SERUM QUALITATIVE NEGATIVE (NEGATIVE)
[2018-06-13 20:20] LABS: ALBUMIN 3.4 GM/DL (3.2-5.2); ALT/SGPT 17 U/L (12-78); BILIRUBIN,DIRECT 0.1 MG/DL (0.0-0.2); BILIRUBIN,TOTAL 0.4 MG/DL (0.2-1.0); BLOOD UREA NITROGEN 16 MG/DL (7-18); CALCIUM LEVEL 8.6 MG/DL (8.5-10.1); CARBON DIOXIDE LEVEL 25 MEQ/L (21-32); CHLORIDE LEVEL 103 MEQ/L (98-107); CREATININE FOR GFR 0.58 MG/DL (0.55-1.30); GLOMERULAR FILTRATION RATE > 60.0 (>58); GLUCOSE, FASTING 310 MG/DL (70-100); LIPASE 160 U/L (73-393); POTASSIUM SERUM 3.9 MEQ/L (3.5-5.1); SODIUM LEVEL 137 MEQ/L (136-145); TOTAL PROTEIN 6.9 GM/DL (6.4-8.2)
[2018-06-13 20:24] LABS: APPEARANCE, URINE CLEAR (CLEAR); BACTERIA, URINE AUTO 1+ (NEGATIVE); BILIRUBIN, URINE AUTO NEGATIVE (NEGATIVE); BLOOD, URINE BLOOD 1+ (NEGATIVE); COLOR, URINE YELLOW (YELLOW); GLUCOSE, URINE (UA) AUTO 3+ mg/dL (NEGATIVE); KETONE, URINE AUTO TRACE mg/dL (NEGATIVE); LEUKOCYTE ESTERASE, URINE AUTO NEGATIVE (NEGATIVE); NITRITE, URINE AUTO NEGATIVE (NEGATIVE); PROTEIN, URINE AUTO NEGATIVE (NEGATIVE); RBC, URINE AUTO 4 /HPF (0-3); SPECIFIC GRAVITY URINE AUTO 1.036 (1.002-1.035); SQUAMOUS EPITHELIAL CELL UR AU 3 /HPF (0-6); UROBILINOGEN, URINE AUTO 0.2 mg/dL (0.0-2.0); WBC, URINE AUTO 2 /HPF (0-3)
--- NOTE | 2018-06-13 22:42 | REPVR ---
EXAM: CT Abdomen and Pelvis Without Contrast EXAM DATE/TIME: 06/13/2018 8:36 PM CLINICAL HISTORY: 42 years old, female; Pain; Abdominal pain; Generalized TECHNIQUE: Imaging protocol: Axial computed tomography images of the abdomen and pelvis without contrast. Coronal and sagittal reformatted images were created and reviewed. Radiation optimization: All CT scans at this facility use at least one of these dose optimization techniques: automated exposure control; mA and/or kV adjustment per patient size (includes targeted exams where dose is matched to clinical indication); or iterative reconstruction. COMPARISON: CT ABD/PEL W/IV CONTRAST ONLY 04/06/2018 1:03 AM FINDINGS: Lower thorax: Clear appearing lungs. The heart is normal in size. ABDOMEN: Liver: Normal appearing liver. Gallbladder and bile ducts: Normal gallbladder. Normal-sized common bile duct. Pancreas: Normal pancreas. Spleen: Normal appearing spleen. Adrenals: Normal adrenal glands. Kidneys and ureters: Normal kidneys. Stomach and bowel: The cecum is in the right pelvis and the margins appear smooth. There is a massive anterior abdominal wall hernia at the level of the umbilicus to the inferior most aspect of the panniculus. This measures 21 CM by 21 CM by 13 CM. There is protrusion of the margin of the transverse colon. The terminal ileum extends into this hernia and markedly narrows with edema of the wall. There is a 5 CM fluid-filled structure which may in part be the dilated and locally obstructed terminal ileum. In the midline there is a large loculation of fluid measuring 8 CM by 4 CM and there is enhancement of the wall. There is a prominent loop of small bowel extending into the mid and left of midline portion of this hernia. This loop is massively distended and filled with secretions and bubbly like material consistent with a high-grade obstruction/incarceration at this location. There is also a loop of small bowel which extends into the location of the distal ileum to the right of midline. Several loops of bowel are adherent to the anterior abdominal wall and there is a third loculation of fluid deep within the subcutaneous layer. All of these loops are into the subcutaneous layer and suspicious for incarcerated loops of bowel and strangulated bowel. There is a severely distended loop of small bowel within the abdomen just above the uterus demonstrating secretions and bubbly like material and some severe thinning of the wall. There is severe inflammation and stranding of the mesentery which may in part be secondary to ischemic change and inflammation. This loop of bowel extends into the hernia from below and in part occupies the largest hernia sac. Much of the hernia is multi-loculated with areas of septation and separate areas. There is edema within the subcutaneous layer below the umbilicus involving the panniculus. Appendix: Not seen PELVIS: Bladder: Normal urinary bladder. Reproductive: There is severe enlargement of the uterus with severe lobulation consistent with numerous fibroids. There is a 3 CM calcified fibroid along the anterior surface of the there is no evidence of hydronephrosis. ABDOMEN and PELVIS: Intraperitoneal space: There is no evidence of pneumoperitoneum. Bones/joints: There is no evidence of bony abnormality. Vasculature: The aorta is normal in size. Lymph nodes: There is no evidence of lymphadenopathy. IMPRESSION: 1. Massive anterior abdominal wall hernia 21 CM by 21 CM by 13 CM. There are multiple pockets of distended bowel and fluid. Multiple loops of incarcerated and obstructed/strangulated bowel extends into this large hernia. Severely distended loops of bowel within the abdomen above the enlarged uterus demonstrating severe thinning of bowel wall and surrounding edema and stranding density. This appearance of thin and bubbly bowel wall is very suspicious for ischemic change. This could be a area that will go on to perforation. This is all a multiloculated closed-loop obstruction associated with this multi-septated hernia in the anterior abdominal wall. Numerous intervening areas of fluid within the hernia. 2. Numerous fibroids of the uterus. Findings were discussed with MEMO BRUCE at 06/13/2018 10:41 PM EDT. Electronically signed by: Truman Giles On 06/13/2018 22:41:42 PM
[2018-06-13] MEDS ORDERED: metroNIDAZOLE 500 MG in APPROPRIATE DILUENT 1 EA IV ONE (23:30)
[2018-06-13] MEDS ORDERED: PIPERACILLIN/TAZOBACTAM SOD 3.375 GM in D5W MINI-BAG PLUS 50 ML IV ONE (23:30)
[2018-06-13] MEDS ORDERED: MORPHINE 4 MG/ML 1ML VIAL/SYRINGE (J2270) IV ONE (23:30)
[2018-06-13] MEDS ORDERED: LR 1,000 ML IV SCH (23:32)
[2018-06-13] MEDS ORDERED: PERCOCET 5MG/325MG TAB PO PRN ×2 (23:45)
[2018-06-13] MEDS ORDERED: ONDANSETRON 4MG/2ML VIAL (J2405) IV PRN (23:45)
[2018-06-13] MEDS ORDERED: MORPHINE 4 MG/ML 1ML VIAL/SYRINGE (J2270) IV PRN (23:45)
[2018-06-14] MEDS ORDERED: HEPARIN SOD (PORCINE) 5000 UNITS/ML VIAL SC SCH (06:00)
[2018-06-14] MEDS ORDERED: PANTOPRAZOLE 40MG INJ (PROTONIX) (C9113) IV SCH (09:00)
== END 2018-06-13 23:44 | disposition left against medical advice (07) | DRG 395 ==
LOC: M ED 18:31 → EDBD 18:31 → M ED INP 23:32
PROVIDERS: ADMIT Surgery; ATTEND Surgery
DX: K43.0 Incisional hernia with obstruction, without gangrene (principal)

== ENCOUNTER 2018-07-10 11:08 | Emergency (ER) | payer MEDICARE, MEDICAID ==
[~2018-07-10] VITALS: Ht 157.5 cm; Wt 100.0 kg
[2018-07-10 11:23] VITALS: BP 120/71
[2018-07-10 11:45] LABS: BASO # 0.1 10^3/uL (0.0-0.2); BASO % 0.6 % (0.0-1.0); EOS # 0.3 10^3/uL (0.0-0.50); EOS % 3.3 % (0.0-3.0); HEMATOCRIT 37.7 % (36.0-47.0); LYMPH # 1.8 10^3/uL (1.5-4.5); LYMPH % 17.2 % (24.0-44.0); MEAN CORPUSCULAR HEMOGLOBIN 25.6 pg (27.0-33.0); MEAN CORPUSCULAR HGB CONC 31.8 g/dl (32.0-36.5); MEAN CORPUSCULAR VOLUME 80.4 fl (80.0-96.0); MONO # 0.4 10^3/uL (0.0-0.8); MONO % 4.2 % (0.0-5.0); NEUTROPHILS # 7.8 10^3/uL (1.8-7.7); NEUTROPHILS % 74.2 % (36.0-66.0); PLATELET COUNT, AUTOMATED 349 10^3/uL (150-450); RED BLOOD COUNT 4.69 10^6/uL (4.00-5.40); WHITE BLOOD COUNT 10.5 10^3/uL (4.0-10.0)
[2018-07-10 12:10] LABS: HCG, SERUM QUALITATIVE NEGATIVE (NEGATIVE)
[2018-07-10 12:22] LABS: BLOOD UREA NITROGEN 17 MG/DL (7-18); CALCIUM LEVEL 8.4 MG/DL (8.5-10.1); CARBON DIOXIDE LEVEL 25 MEQ/L (21-32); CHLORIDE LEVEL 103 MEQ/L (98-107); CREATININE FOR GFR 0.66 MG/DL (0.55-1.30); GLOMERULAR FILTRATION RATE > 60.0 (>58); GLUCOSE, FASTING 272 MG/DL (70-100); SODIUM LEVEL 135 MEQ/L (136-145)
--- NOTE | 2018-07-10 20:31 | ECGEPIP ---
Stationary ECG Study [facility] - ED Test Date: 2018-07-10 Pat Name: ARNOLDO CLAROS Department: Room: - Gender: F Nicu Rn: : 1975 Requested By: ABHAY Wylie Order Number: [id number] Reading MD: Audelia Albrecht Measurements Intervals [place] Rate: 72 P: 41 NC: 167 QRS: -9 QRSD: 93 T: 62 QT: 403 QTc: 443 Interpretive Statements SINUS RHYTHM MODERATE VOLTAGE CRITERIA FOR LVH, CONSIDER NORMAL VARIANT NONSPECIFIC T-WAVE ABNORMALITY INCREASED RATE 12/07/13 Electronically Signed On 07-10-2018 20:31:39 EDT by Audelia Albrecht
== END 2018-07-10 11:49 | disposition left against medical advice (07) ==
LOC: M ED 11:08
DX: R55 Syncope and collapse (principal); Z53.21 Procedure and treatment not carried out due to patient leaving prior to being seen by health care provider

== ENCOUNTER 2018-07-14 13:29 | Emergency (ER) | payer MEDICARE, MEDICAID ==
--- NOTE | 2018-07-14 13:45 | ED PDOC ---
Post-Departure Follow-Up when I went to see patient 15 minutes after she arrived to the ED she was alread y gone. Told the nurses with profanity that she as not going to answer any questions until the doctor came in to give her pain medications; however, she refused to wait pending my assessment. Audleia Albrecht MD July 14, 2018 13:45
== END 2018-07-14 14:41 | disposition home or self-care (01) ==
LOC: EDBD 13:29 → M ED 13:29
DX: R10.9 Unspecified abdominal pain (principal); Z53.21 Procedure and treatment not carried out due to patient leaving prior to being seen by health care provider

== ENCOUNTER 2018-09-30 22:55 | Emergency (ER) | payer MEDICARE, MEDICAID ==
[~2018-09-30] VITALS: Ht 157.5 cm; Wt 102.3 kg
[~2018-09-30 22:55] MED LIST changes: +METF-791 PO; -METF500T4 PO
[2018-09-30 22:56] VITALS: BP 186/104
== END 2018-10-01 00:52 | disposition left against medical advice (07) ==
LOC: M ED 22:55
DX: Z53.29 Procedure and treatment not carried out because of patient's decision for other reasons (principal)

== ENCOUNTER 2019-01-07 17:12 | Inpatient (IN) | payer MEDICARE, MEDICAID ==
[~2019-01-07] VITALS: Ht 157.5 cm; Wt 99.5 kg
[2019-01-07] MEDS ORDERED: ONDANSETRON 4MG/2ML VIAL (J2405) IV ONE (18:00)
[2019-01-07 18:37] LABS: BASO # 0.1 10^3/uL (0.0-0.2); BASO % 0.5 % (0.0-1.0); EOS # 0.2 10^3/uL (0.0-0.5); EOS % 1.6 % (0.0-3.0); HEMATOCRIT 42.1 % (36.0-47.0); HEMOGLOBIN 13.6 g/dl (12.0-15.5); LYMPH # 1.8 10^3/uL (1.5-5.0); MEAN CORPUSCULAR HEMOGLOBIN 27.1 pg (27.0-33.0); MEAN CORPUSCULAR HGB CONC 32.3 g/dl (32.0-36.5); MONO # 0.5 10^3/uL (0.0-0.8); MONO % 4.2 % (0.0-5.0); NEUTROPHILS # 9.4 10^3/uL (1.5-8.5); NEUTROPHILS % 78.4 % (36.0-66.0); PLATELET COUNT, AUTOMATED 411 10^3/uL (150-450); RED BLOOD COUNT 5.01 10^6/uL (4.00-5.40)
[2019-01-07] MEDS: MORPHINE 2 MG/ML 1ML VIAL (J2270) IV PRN ×3 (18:47→22:18)
[2019-01-07 18:53] LABS: ALBUMIN 3.2 GM/DL (3.2-5.2); ALT/SGPT 16 U/L (12-78); BILIRUBIN,DIRECT 0.1 MG/DL (0.0-0.2); BILIRUBIN,TOTAL 0.4 MG/DL (0.2-1.0); BLOOD UREA NITROGEN 10 MG/DL (7-18); CALCIUM LEVEL 8.9 MG/DL (8.5-10.1); CARBON DIOXIDE LEVEL 25 MEQ/L (21-32); CHLORIDE LEVEL 102 MEQ/L (98-107); CREATININE FOR GFR 0.62 MG/DL (0.55-1.30); GLOMERULAR FILTRATION RATE > 60.0 (>58); GLUCOSE, FASTING 283 MG/DL (70-100); LIPASE 103 U/L (73-393); POTASSIUM SERUM 3.6 MEQ/L (3.5-5.1); SODIUM LEVEL 137 MEQ/L (136-145); TOTAL PROTEIN 6.6 GM/DL (6.4-8.2)
[2019-01-07] MEDS ORDERED: ISOVUE-370 76% 100ML VIAL (Q9967) As Ordered ONE (19:10)
--- NOTE | 2019-01-07 20:51 | REPVR ---
PROCEDURE INFORMATION: Exam: CT Abdomen And Pelvis With Contrast Exam date and time: 01/07/2019 7:13 PM Clinical history: 43 years old, female; Abdominal pain; Localized; Left lower quadrant (llq); Additional info: Pain, llq TECHNIQUE: Imaging protocol: Computed tomography of the abdomen and pelvis with intravenous contrast. Radiation optimization: All CT scans at this facility use at least one of these dose optimization techniques: automated exposure control; mA and/or kV adjustment per patient size (includes targeted exams where dose is matched to clinical indication); or iterative reconstruction. Contrast material: ISOVUE 370; Contrast volume: 100 ml; Contrast route: IV; COMPARISON: CT ABD/PEL W/IV CONTRAST ONLY 04/06/2018 1:03 AM FINDINGS: Lungs: Clear lung bases. Liver: There is uniform enhancement through the liver. There is enlargement of the right lobe of the liver. Gallbladder and bile ducts: Normal gallbladder. Normal common bile duct. Pancreas: 1.7 CM cyst along the anterior surface of the pancreas very similar to the examination of 04/06/2018. The pancreas is normal in size. Spleen: Normal spleen. Adrenals: Normal. No mass. Kidneys and ureters: There is enhancement of both kidneys. There is no evidence of hydronephrosis. Stomach and bowel: There is severe distention of most of the small bowel with numerous air-fluid levels and the pattern is similar to previous examinations. There is a dilated loop of small bowel extending into the midportion of this large hernia and tapering of the bowel as it crosses the anterior abdominal wall defect. There are multiple loops of decompressed small bowel adherent to the anterior abdominal wall hernia. This produces a high-grade obstruction. Intraperitoneal space: There is no evidence of pneumoperitoneum. Vasculature: There is opacification of the aorta which appears normal in size. There is opacification of the SMV and opacification of the SMA. Bladder: The urinary bladder is empty and cannot be evaluated. There are very large fibroids throughout the uterus with gross enlargement of the uterus. A calcified fibroid is noted along the anterior surface of the upper uterus. This appears similar to 12/16/2017 exam. Bones/joints: There is anterior osteophyte formation lower thoracic spine. Soft tissues: The patient has a large anterior abdominal wall hernia. In the lower aspect of this hernia there are large loculations of fluid that have been present on the previous examinations as well. At the right lower quadrant there is protrusion of the terminal ileum into this hernia and this loop is decompressed. IMPRESSION: 1. Massive anterior abdominal wall hernia with large collections of fluid in the anterior panniculus similar to previous exams. 2. Decompressed ileum extending into this hernia and severely dilated loop of small bowel also extending into this hernia. Severe narrowing of the bowel as it traverses the anterior abdominal wall defect. This is consistent with a high-grade obstruction. The amount of dilatation of small bowel and air-fluid levels increased since 04-06-2018. Electronically signed by: Truman Giles On 01/07/2019 20:51:21 PM
--- NOTE | 2019-01-07 22:35 | HPEPDOC ---
[facility] Medical History & Physical Date of Admission Jan 07, 2019 Date of Service: Jan 07, 2019 Attending Physician: ZAIRA JIMENEZ MD History and Physical TIME OF SERVICE: 11:10 PM CHIEF COMPLAINT: Abdominal pain HISTORY OF PRESENT ILLNESS: This is a 43-year-old female who presents with complaints of 8 out of 10 in severity, sharp / cramping abdominal pain that began this morning; the pain is similar to the pain when she had previous episodes of small bowel obstruction. After receiving morphine, the pain improved to 2 out of 10 in severity. Associated symptoms include nonbloody vomiting. Her last BM was yesterdays she last passed gas yesterday. REVIEW OF SYSTEMS: 12 point review of systems negative except as listed in HPI PAST MEDICAL/ SURGICAL HISTORY: Multiple ventral hernia repairs Multiple episodes of small bowel obstruction requiring surgical repair Bipolar disorder. Diabetes Obesity/sleep apnea Status post tonsillectomy. Status post piloidal cystectomy. Status post . SOCIAL HISTORY: Smoker FAMILY HISTORY: Cancer CVD Diabetes ALLERGIES: Please see below. HOME MEDICATIONS: Please see below. PHYSICAL EXAMINATION: VITAL SIGNS: Please see below. GENERAL APPEARANCE: Well-nourished, well-developed, appears older than stated age HEENT: Normocephalic, atraumatic, mucous membranes dry CARDIOVASCULAR: Regular rate and rhythm. No murmurs, rubs or gallops LUNGS: Clear to auscultation bilaterally ABDOMEN: Abdomen is obese, bowel sounds are hypoactive. There is no tenderness with palpation MUSCULOSKELETAL: Is no lower extremity edema INTEGUMENT: Her skin is not flushed. She does not appear jaundice NEUROLOGICAL: Cranial nerves II-12 are grossly intact. Speech is not dysarthric PSYCHIATRIC: Alert and oriented to person, place and time, able to understand and follow commands LABORATORY DATA: See below. IMAGING: CT of the abdomen and pelvis " IMPRESSION: 1. Massive anterior abdominal wall hernia with large collections of fluid in the anterior panniculus similar to previous exams. 2. Decompressed ileum extending into this hernia and severely dilated loop of small bowel also extending into this hernia. Severe narrowing of the bowel as it traverses the anterior abdominal wall defect. This is consistent with a high- grade obstruction. The amount of dilatation of small bowel and air-fluid levels increased since 04-06-2018. ASSESSMENT: Ms. Ramirez is a 43-year-old female the past medical history of multiple abdominal surgeries, multiple episodes of small bowel obstruction, bipolar disorder and diabetes will be admitted for management of a small bowel obstruction. PLAN 1. High Grade SBO / Ventral abdominal wall hernia The tachycardia and leukocytosis are likely reactive. The lactic acid is within normal limits The report from CT of the abdomen has been reviewed Plan: Admit to general medical floor/NG to suction/NPO/ NS /morphine PRN for pain / general surgery consult/ follow-up KUB and electrolytes in the morning 2. Hypomagnesemia Plan: Replete magnesium/follow-up lytes in the morning and replete as necessary 3.Diabetes mellitus The patient denies taking any insulin or oral glycemic agents. She thinks she has prediabetes, but her A1c was 10.6 in June 2016 Plan: f/u POC Q6H & A1C / hypoglycemia protocol / sliding scale insulin / pending repeat A1c She mean to be started on long-acting insulin 4. Bipolar disorder. No home meds listed Plan: Monitor DVT prophylaxis with SCDs 5. Obesity BMI is 40.1 kg/m2 Since she has a BMI greater than 35 and she is a diabetic she qualifies for bariatric surgery Based on medical record she has a history of sleep apnea Plan: can f/u w PCP for dietitian consult / recommend cardiovascular exercise for 40 min 4-5 days a week DVT prophylaxis with SCDs Disposition pending clinical course Vital Signs Vital Signs Date Time Temp Pulse Resp B/P (MAP) Pulse Ox O2 Delivery O2 Flow Rate FiO2 01/07/19 22:18 18 01/07/19 20:00 97.3 88 158/85 (109) 97 Room Air Laboratory Data Labs 24H Laboratory Tests 2 01/07/19 18:08: Immature Granulocyte % (Auto) 0.3, Neutrophils (%) (Auto) 78.4H, Lymphocytes (%) (Auto) 15.0L, Monocytes (%) (Auto) 4.2, Eosinophils (%) (Auto) 1.6, Basophils (%) (Auto) 0.5, Neutrophils # (Auto) 9.4H, Lymphocytes # (Auto) 1.8, Monocytes # (Auto) 0.5, Eosinophils # (Auto) 0.2, Basophils # (Auto) 0.1, Nucleated Red Blood Cells % (auto) 0.0, Urine Color YELLOW, Urine Appearance CLOUDYH, Urine pH 5.0, Urine Specific [place] 1.037, Urine Protein 1+H, Urine Glucose (UA) 3+H, Urine Ketones TRACEH, Urine Blood 3+H, Urine Nitrite NEGATIVE, Urine Bilirubin NEGATIVE, Urine Urobilinogen 0.2, Urine Leukocyte Esterase NEGATIVE, Urine WBC (Auto) 3, Urine RBC (Auto) TNTCH, Urine Hyaline Casts (Auto) 0, Urine Bacteria (Auto) NEGATIVE, Urine Squamous Epithelial Cells 2, Urine Mucus (Auto) SMALL, Urine Sperm (Auto) , Anion Gap 10, Glomerular Filtration Rate > 60.0, Calcium Level 8.9, Total Bilirubin 0.4, Direct Bilirubin 0.1, Aspartate Amino Transf (AST/SGOT) 10, Alanine Aminotransferase (ALT/SGPT) 16, Alkaline Phosphatase 97, Total Protein 6.6, Albumin 3.2, Albumin/Globulin Ratio 0.94L, Lipase 103 01/07/19 18:17: POC Beta HCG, Quantitative < 5.0 01/07/19 21:33: Lactic Acid Level 1.7 CBC/BMP Laboratory Tests 01/07/19 18:08 Home Medications No Active Prescriptions or Reported Meds Allergies Coded Allergies: [place] (Verified Allergy, Intermediate, RASH, 01/09/19) SEAFOOD (Verified Allergy, Intermediate, RASH, 01/09/19) shellfish derived (Verified Allergy, Intermediate, hives, 01/09/19) A-FIB/CHADSVASC A-FIB History Current/History of A-Fib/PAF?: No Current PO Anticoag Therapy: ZAIRA Lay MD Jan 07, 2019 22:35
[2019-01-07] MEDS ORDERED: GLUCAGON FOR INJ 1 MG VIAL (J1610) SC PRN (22:45)
[2019-01-07] MEDS ORDERED: DEXTROSE 50% 50 ML SYRINGE IV PRN (22:45)
[2019-01-07] MEDS ORDERED: D5W/0.9% SODIUM CHLORIDE 1,000 ML IV SCH (22:45)
[2019-01-07] MEDS ORDERED: GLUCOSE 4 GM CHEW TABLET PO PRN (22:45)
[2019-01-07 23:04] LABS: MAGNESIUM LEVEL 1.5 MG/DL (1.8-2.4)
[2019-01-07] MEDS ORDERED: MORPHINE 2 MG/ML 1ML VIAL (J2270) IV PRN (23:15)
[2019-01-07] MEDS ORDERED: NS 1,000 ML IV SCH (23:30)
[2019-01-07] MEDS ORDERED: MAG SULF 1GM/100ML (MAG RUN) 1 GM in IV 1 EA IV ONE (23:30)
[2019-01-08] MEDS ORDERED: HumaLOG INSULIN (NovoLOG) PER UNIT SC SCH
[2019-01-08 00:30] VITALS: BP 145/67
--- NOTE | 2019-01-08 02:38 | IPNPDOC ---
Text Note Date of Service The patient was seen on 01/08/19. NOTE The patient absconded before we were able to talk with her; I called the phone number listed in the EMR but the patient did not chart picker the phone. VS,Fishbone, I+O VS, Fishbone, I+O Laboratory Tests 01/07/19 18:08 Vital Signs Date Time Temp Pulse Resp B/P (MAP) Pulse Ox O2 Delivery O2 Flow Rate FiO2 01/08/19 00:30 97.3 88 16 145/67 (93) 94 Room Air I&O- Last 24 Hours up to 6 AM 01/08/19 06:00 Intake Total 150 ml Balance 150 ml ZAIRA JIMENEZ MD Jan 08, 2019 02:37
--- NOTE | 2019-01-08 04:35 | DS.PDOC ---
Discharge Summary General Date of Admission Jan 07, 2019 at 22:43 Date of Discharge Jan 08 2019 Attending Physician: ZAIRA JIMENEZ MD Discharge Summary PROCEDURES PERFORMED DURING STAY: [None]. ADMITTING DIAGNOSES: 1. SBO DISCHARGE DIAGNOSES: 1. SBO 2. Left AMA COMPLICATIONS/CHIEF COMPLAINT: Small Bowel Obstruction. HISTORY OF PRESENT ILLNESS: Per HPI Ms.Wright Littleis a 43-year-old female who presents with complaints of 8 out of 10 in severity, sharp / cramping abdominal pain that began this morning; the pain is similar to the pain when she had previous episodes of small bowel obstruction. After receiving morphine. The pain improved to 2 out of 10 in severity. Associated symptoms include nonbloody vomiting. Her last BM was yesterday. She last passed gas yesterday." HOSPITAL COURSE: She was admitted to the general medical floor for management of a SBO but left AMA shortly thereafter. DISCHARGE MEDICATIONS: Please see below. ALLERGIES: Please see below. PHYSICAL EXAMINATION ON DISCHARGE: not completed because the patient left AMA LABORATORY DATA: Please see below. IMAGING: see H&P PROGNOSIS: poor DISCHARGE PLAN: left AMA DISPOSITION: 07 Against Medical Advice. DISCHARGE CONDITION: [Stable]. TIME SPENT ON DISCHARGE: Greater approximately 7 minutes. Vital Signs/I&Os Vital Signs Date Time Temp Pulse Resp B/P (MAP) Pulse Ox O2 Delivery O2 Flow Rate FiO2 01/08/19 00:30 97.3 88 16 145/67 (93) 94 Room Air I&O- Last 24 Hours up to 6 AM 01/08/19 06:00 Intake Total 150 ml Balance 150 ml Laboratory Data Labs 24H Laboratory Tests 2 01/07/19 18:08: Immature Granulocyte % (Auto) 0.3, Neutrophils (%) (Auto) 78.4H, Lymphocytes (%) (Auto) 15.0L, Monocytes (%) (Auto) 4.2, Eosinophils (%) (Auto) 1.6, Basophils (%) (Auto) 0.5, Neutrophils # (Auto) 9.4H, Lymphocytes # (Auto) 1.8, Monocytes # (Auto) 0.5, Eosinophils # (Auto) 0.2, Basophils # (Auto) 0.1, Nucleated Red Blood Cells % (auto) 0.0, Urine Color YELLOW, Urine Appearance CLOUDYH, Urine pH 5.0, Urine Specific [place] 1.037, Urine Protein 1+H, Urine Glucose (UA) 3+H, Urine Ketones TRACEH, Urine Blood 3+H, Urine Nitrite NEGATIVE, Urine Bilirubin NEGATIVE, Urine Urobilinogen 0.2, Urine Leukocyte Esterase NEGATIVE, Urine WBC (Auto) 3, Urine RBC (Auto) TNTCH, Urine Hyaline Casts (Auto) 0, Urine Bacteria (Auto) NEGATIVE, Urine Squamous Epithelial Cells 2, Urine Mucus (Auto) SMALL, Urine Sperm (Auto) , Anion Gap 10, Glomerular Filtration Rate > 60.0, Calcium Level 8.9, Magnesium Level 1.5L, Total Bilirubin 0.4, Direct Bilirubin 0.1, Aspartate Amino Transf (AST/SGOT) 10, Alanine Aminotransferase (ALT/SGPT) 16, Alkaline Phosphatase 97, Total Protein 6.6, Albumin 3.2, Albumin/Globulin Ratio 0.94L, Lipase 103 01/07/19 18:17: POC Beta HCG, Quantitative < 5.0 01/07/19 21:33: Lactic Acid Level 1.7 01/08/19 00:46: Bedside Glucose (Misc Panel) 299H CBC/BMP Laboratory Tests 01/07/19 18:08 FSBS Laboratory Tests Test 01/08/19 00:46 Range/Units Bedside Glucose (Misc Panel) 299 70-105 MG/DL Discharge Medications No Active Prescriptions or Reported Meds Allergies Coded Allergies: Amarjit (Verified Allergy, Intermediate, RASH, 01/09/19) SEAFOOD (Verified Allergy, Intermediate, RASH, 01/09/19) shellfish derived (Verified Allergy, Intermediate, hives, 01/09/19) ZAIRA JIMENEZ MD Jan 08, 2019 04:35
--- NOTE | 2019-01-08 07:58 | REP ---
Two-view chest: 01/07/2019. Indication: NG tube placement. Comparison: 07/19/2011. Findings: Two images demonstrate progressive placement of an NG gastric tube with the final image demonstrating the tip below the diaphragm. The lungs are clear. There is no pleural effusion or pneumothorax. Impression: Final image demonstrates the tip of the NG tube below diaphragm. Electronically Signed by Vasyl Lara DO 01/08/2019 07:49 A
== END 2019-01-08 00:57 | disposition left against medical advice (07) | DRG 389 ==
LOC: M ED 17:12 → M ED INP 22:43 → M MS4PR 01-08 00:57
PROVIDERS: ADMIT Internal Medicine; ATTEND Internal Medicine
DX: K56.609 Unspecified intestinal obstruction, unspecified as to partial versus complete obstruction (principal); Z68.41 Body mass index [BMI] 40.0-44.9, adult; Z91.018 Allergy to other foods; Z91.013 Allergy to seafood; F31.9 Bipolar disorder, unspecified; E11.69 Type 2 diabetes mellitus with other specified complication; E66.9 Obesity, unspecified; G47.30 Sleep apnea, unspecified; D72.829 Elevated white blood cell count, unspecified; E83.42 Hypomagnesemia

== ENCOUNTER 2019-01-08 15:03 | Emergency (ER) | payer MEDICARE, MEDICAID ==
[~2019-01-08] VITALS: Ht 157.5 cm; Wt 99.5 kg
[2019-01-08 15:51] VITALS: BP 156/88
[2019-01-08] MEDS ORDERED: MORPHINE 4 MG/ML 1ML VIAL/SYRINGE (J2270) IV ONE ×2 (17:15→20:45)
[2019-01-08] MEDS ORDERED: ONDANSETRON 4MG/2ML VIAL (J2405) IV ONE (17:15)
[2019-01-08] MEDS ORDERED: NS 1,000 ML IV ONE ×2 (17:15→20:15)
[2019-01-08 17:51] LABS: BASO % 0.2 % (0.0-1.0); EOS % 0.2 % (0.0-3.0); HEMOGLOBIN 14.1 g/dl (12.0-15.5); LYMPH # 0.8 10^3/uL (1.5-5.0); LYMPH % 4.1 % (24.0-44.0); MEAN CORPUSCULAR HEMOGLOBIN 27.5 pg (27.0-33.0); MEAN CORPUSCULAR HGB CONC 32.8 g/dl (32.0-36.5); MONO # 0.3 10^3/uL (0.0-0.8); MONO % 1.5 % (0.0-5.0); NEUTROPHILS # 17.6 10^3/uL (1.5-8.5); NEUTROPHILS % 93.6 % (36.0-66.0); PLATELET COUNT, AUTOMATED 455 10^3/uL (150-450); RED BLOOD COUNT 5.12 10^6/uL (4.00-5.40); WHITE BLOOD COUNT 18.8 10^3/uL (4.0-10.0)
[2019-01-08 18:25] LABS: ALBUMIN 3.4 GM/DL (3.2-5.2); ALT/SGPT 13 U/L (12-78); BLOOD UREA NITROGEN 12 MG/DL (7-18); CALCIUM LEVEL 9.4 MG/DL (8.5-10.1); CARBON DIOXIDE LEVEL 25 MEQ/L (21-32); CHLORIDE LEVEL 101 MEQ/L (98-107); CREATININE FOR GFR 0.62 MG/DL (0.55-1.30); GLOMERULAR FILTRATION RATE > 60.0 (>58); GLUCOSE, FASTING 329 MG/DL (70-100); LIPASE 57 U/L (73-393); POTASSIUM SERUM 4.1 MEQ/L (3.5-5.1); SODIUM LEVEL 136 MEQ/L (136-145); TOTAL PROTEIN 7.1 GM/DL (6.4-8.2)
[2019-01-08] MEDS ORDERED: ISOVUE-370 76% 100ML VIAL (Q9967) As Ordered ONE (19:22)
--- NOTE | 2019-01-08 21:14 | REPVR ---
PROCEDURE INFORMATION: Exam: CT Abdomen And Pelvis With Contrast Exam date and time: 01/08/2019 7:27 PM Clinical history: 43 years old, female; Abdominal pain; Generalized; Additional info: Current sbo, pain worse, elev wbc TECHNIQUE: Imaging protocol: Computed tomography of the abdomen and pelvis with intravenous contrast. Radiation optimization: All CT scans at this facility use at least one of these dose optimization techniques: automated exposure control; mA and/or kV adjustment per patient size (includes targeted exams where dose is matched to clinical indication); or iterative reconstruction. Contrast material: ISOVUE 370; Contrast volume: 100 ml; Contrast route: IV; COMPARISON: CT ABD/PEL W/IV CONTRAST ONLY 01/07/2019 7:11 PM FINDINGS: Lungs: Clear lung bases. Liver: Normal -appearing liver. Gallbladder and bile ducts: There is some sludge within the gallbladder. Pancreas: 1.7 CM cyst at the body of the pancreas and similar to the CT of 04/06/2018. Spleen: Normal spleen. Adrenals: Normal adrenal glands. Kidneys and ureters: There is enhancement of both kidneys. There is no evidence of hydronephrosis. Stomach and bowel: There is a distended loop of small bowel extending into the left portion of this hernia. The terminal ileum is decompressed but extending into the right lower aspect of this hernia. There is massive distention of small bowel with secretions and numerous air-fluid levels. The amount of distention is very similar to yesterday's examination. Multiple loops of decompressed small bowel are adherent to the anterior aspect of this hernia with a narrow lumen. This is suspicious for a transition point. The appearance is consistent with a small bowel obstruction. Intraperitoneal space: There is no evidence of pneumoperitoneum. Vasculature: There is opacification of the aorta which appears normal in size. There is opacification of the SMV and the SMA. Lymph nodes: Unremarkable. No enlarged lymph nodes. Bladder: A small amount of urine in the urinary bladder. Reproductive: Severe enlargement of the uterus with multiple fibroids including a calcified fibroid and similar to previous exams. Soft tissues: There is a 22 CM x 20 CM by 10 CM in thickness anterior abdominal wall hernia. There are large loculations of fluid within this hernia similar to the previous exams. The fluid loculation far right has mildly increased since yesterday. There are no bubbles of air within these collection. IMPRESSION: 1. Massive anterior abdominal wall hernia with a large loculations of fluid similar to the previous exams. Fluid at the right loculation is mildly increasing since yesterday. 2. Distended loop of small bowel extending into the hernia. Decompressed small bowel at the anterior abdominal wall and also decompressed ileum extending into the right side of the hernia suspicious for a transition point and associated with a severe small bowel obstruction. 3. Severe distention of much of the small bowel with air-fluid levels consistent with a obstruction. Electronically signed by: Truman Giles On 01/08/2019 21:14:20 PM
== END 2019-01-08 22:54 | disposition left against medical advice (07) ==
LOC: EDBD 15:03 → M ED 15:03
DX: K56.609 Unspecified intestinal obstruction, unspecified as to partial versus complete obstruction (principal); K43.0 Incisional hernia with obstruction, without gangrene; Z53.21 Procedure and treatment not carried out due to patient leaving prior to being seen by health care provider

== ENCOUNTER 2019-01-09 06:35 | Inpatient (IN) | payer MEDICARE, MEDICAID ==
[~2019-01-09] VITALS: Ht 157.5 cm; Wt 104.1 kg
[2019-01-09] MEDS ORDERED: NS 1,000 ML IV ONE (07:15)
[2019-01-09] MEDS ORDERED: ONDANSETRON 4MG/2ML VIAL (J2405) IV ONE (07:15)
[2019-01-09] MEDS ORDERED: KETOROLAC 30 MG/ML VIAL (J1885) IV ONE (07:15)
[2019-01-09 07:27] LABS: BASO % 0.3 % (0.0-1.0); EOS # 0.1 10^3/uL (0.0-0.5); EOS % 1.1 % (0.0-3.0); HEMATOCRIT 41.9 % (36.0-47.0); HEMOGLOBIN 13.6 g/dl (12.0-15.5); LYMPH # 1.1 10^3/uL (1.5-5.0); LYMPH % 8.6 % (24.0-44.0); MEAN CORPUSCULAR HEMOGLOBIN 27.6 pg (27.0-33.0); MEAN CORPUSCULAR HGB CONC 32.5 g/dl (32.0-36.5); MEAN CORPUSCULAR VOLUME 85.2 fl (80.0-96.0); MONO # 0.6 10^3/uL (0.0-0.8); MONO % 5.2 % (0.0-5.0); NEUTROPHILS # 10.5 10^3/uL (1.5-8.5); NEUTROPHILS % 84.2 % (36.0-66.0); PLATELET COUNT, AUTOMATED 392 10^3/uL (150-450); RED BLOOD COUNT 4.92 10^6/uL (4.00-5.40); WHITE BLOOD COUNT 12.4 10^3/uL (4.0-10.0)
[2019-01-09 07:54] LABS: BILIRUBIN,DIRECT 0.2 MG/DL (0.0-0.2); BILIRUBIN,TOTAL 0.9 MG/DL (0.2-1.0); TOTAL PROTEIN 6.5 GM/DL (6.4-8.2)
--- NOTE | 2019-01-09 08:29 | HPEPDOC ---
General Date of Admission 01/09/19 Date of Service: Jan 09, 2019 Attending Physician: KISHA HESS DO Chief Complaint The patient is a 43-year-old female admitted with a reason for visit of Vincenzo Horn in. Source: Patient Exam Limitations: No limitations Timing/Duration: Day(s) Severity: Severe Associated Symptoms: Nausea, Vomiting, Other (severe abdominal pain) History of Present Illness Patient is 53 years old female with past history of bipolar disorder, small bowel obstruction in the past, presented hospital with severe abdominal pain. Patient was readmitted today after she left yesterday in the hospital AGAINST MEDICAL ADVICE. On previous admission patient was found to have an abdominal CAT scan massive anterior abdominal wall hernia with large collections of fluid in the anterior panniculus, Decompressed ileum extending into this hernia and severely dilated loop of small bowel also extending into this hernia. Severe narrowing of the bowel as it traverses the anterior abdominal wall defect. This is consistent with a high-grade obstruction. Today patient decided to come to the hospital due to continuous severe abdominal pain and nausea with vomiting. Patient did not have any bowel movement for 3 days. In ER patient was found to have leukocytes count 12.4, hemoglobin 13.6. NG tube with intermittent suction has been placed. Dr. Martins was contacted by phone by emergency . Home Medications No Active Prescriptions or Reported Meds Allergies Coded Allergies: Amarjit (Verified Allergy, Intermediate, RASH, 01/09/19) SEAFOOD (Verified Allergy, Intermediate, RASH, 01/09/19) shellfish derived (Verified Allergy, Intermediate, hives, 01/09/19) Past Medical History Medical History Bipolar disorder. Diabetes Obesity/sleep apnea Surgical History Status post tonsillectomy. Status post pilondal cystectomy. Status post . Multiple ventral hernia repairs Multiple episodes of small bowel obstruction requiring surgical repair Family History Mother had stroke Social History * Smoker: current smoker, greater than 1 pack/day Alcohol: Denies Drugs: denies A-FIB/CHADSVASC A-FIB History Current/History of A-Fib/PAF?: No Current PO Anticoag Therapy: No Review of Systems Constitutional: Denies: Chills, Fever Eyes: Denies: Pain ENT: Denies: Head Aches, Ear Pain Skin: Denies: Rash, Lesions Pulmonary: Denies: Dyspnea, Cough Cardiovascular: Denies: Chest Pain, Palpitations Gastrointestinal: Reports: Nausea, Vomiting, Abdominal Pain, Constipation Genitourinary: Denies: Dysuria, Frequency Hematologic: Denies: Bruising, Bleeding Excessively Endocrine: Denies: Polydipsia, Polyphagia Musculoskeletal: Denies: Neck Pain, Back Pain Neurological: Denies: Weakness, Numbness Psych: Reports: Mood Normal Physical Examination General Exam: Positive: Alert, Cooperative Eye Exam: Positive: PERRLA ENT Exam: Positive: Atraumatic Neck Exam: Positive: Supple; Negative: JVD Chest Exam: Positive: Clear to auscultation Heart Exam: Positive: Rate Normal Telemetry: Negative: Atrial fibrillation Abdomen Exam: Positive: BS Hypoactive, Tenderness, Hernia (anterior abdominal wall hernia); Negative: Normal bowel sounds Extremity Exam: Negative: Clubbing, Cyanosis Skin Exam: Positive: Nl turgor and temperature Neuro Exam: Positive: Strength at 5/5 X4 ext Psych Exam: Positive: Mental status NL, Oriented x 3 Vital Signs Vital Signs Date Time Temp Pulse Resp B/P (MAP) Pulse Ox O2 Delivery O2 Flow Rate FiO2 01/09/19 07:53 92 18 165/99 (121) 97 Room Air 01/09/19 07:02 97.9 Laboratory Data Labs 24H Laboratory Tests 2 01/09/19 07:15: Immature Granulocyte % (Auto) 0.6, Neutrophils (%) (Auto) 84.2H, Lymphocytes (%) (Auto) 8.6L, Monocytes (%) (Auto) 5.2H, Eosinophils (%) (Auto) 1.1, Basophils (%) (Auto) 0.3, Neutrophils # (Auto) 10.5H, Lymphocytes # (Auto) 1.1L, Monocytes # (Auto) 0.6, Eosinophils # (Auto) 0.1, Basophils # (Auto) 0.0, Nucleated Red Blood Cells % (auto) 0.0, Total Bilirubin 0.9, Direct Bilirubin 0.2, Aspartate Amino Transf (AST/SGOT) 8, Alanine Aminotransferase (ALT/SGPT) 16, Alkaline Phosphatase 103, Total Protein 6.5, Albumin 3.0L, Albumin/Globulin Ratio 0.86L, Lipase 43L 01/09/19 07:21: POC Glucose (Misc Panel) 349H, POC Sodium (Misc Panel) 136, POC Potassium (Misc Panel) 3.7, POC Chloride (Misc Panel) 99, POC Total CO2 (Misc Panel) 24.0, POC Blood Urea Nitrogen (Misc Panel 9, POC Ionized Calcium (Misc Panel) 4.6, POC Lactate (Misc Panel) 1.16, POC Creatinine (Misc Panel) 0.5L, POC Hematocrit (Misc Panel) 42.0 01/09/19 07:25: POC Beta HCG, Quantitative < 5.0 CBC/BMP Laboratory Tests 01/09/19 07:15 Assessment/Plan Patient is 53 years old female with past history of bipolar disorder, small bowel obstruction in the past, presented hospital with severe abdominal pain. Patient was readmitted today after she left yesterday in the hospital AGAINST MEDICAL ADVICE. On previous admission patient was found to have an abdominal CAT scan massive anterior abdominal wall hernia with large collections of fluid in the anterior panniculus, Decompressed ileum extending into this hernia and severely dilated loop of small bowel also extending into this hernia. Severe narrowing of the bowel as it traverses the anterior abdominal wall defect. Problems (1) Bowel obstruction Status: Acute Problem Text: Patient developed massive anterior abdominal wall hernia with severely dilated loop of small bowel also extending into this hernia consistent with a high-grade obstruction Emergent surgical evaluation NG tube placed with intermittent suction Nothing by mouth for now IV fluid Pain management Zosyn IV to prevent bacterial translocation Unlikely patient has septic, she is afebrile, abdomen is soft, no rebound. Lactic acid is within normal limit. The tachycardia and leukocytosis are likely reactive. Blood culture (2) Hernia of anterior abdominal wall Status: Acute Problem Text: See above (3) Nausea and vomiting in adult Status: Acute Problem Text: Zofran IV (4) Diabetes mellitus Status: Chronic Problem Text: Diabetes mellitus The patient denies taking any insulin or oral glycemic agents. A1c was 10.6 in June 2016 Insulin sliding scale Plan / VTE VTE Prophylaxis Ordered?: Yes KISHA HESS DO Jan 09, 2019 08:29
[2019-01-09] MEDS ORDERED: GLUCOSE 4 GM CHEW TABLET PO PRN (08:30)
[2019-01-09] MEDS ORDERED: GLUCAGON FOR INJ 1 MG VIAL (J1610) SC PRN (08:30)
[2019-01-09] MEDS ORDERED: DEXTROSE 50% 50 ML SYRINGE IV PRN (08:30)
[2019-01-09] MEDS ORDERED: PIPERACILLIN/TAZOBACTAM SOD 3.375 GM in D5W MINI-BAG PLUS 50 ML IV ONE (08:45)
[2019-01-09 09:00] LABS: BLOOD UREA NITROGEN 10 MG/DL (7-18); CALCIUM LEVEL 8.2 MG/DL (8.5-10.1); CARBON DIOXIDE LEVEL 26 MEQ/L (21-32); CHLORIDE LEVEL 105 MEQ/L (98-107); CREATININE FOR GFR 0.52 MG/DL (0.55-1.30); GLOMERULAR FILTRATION RATE > 60.0 (>58); GLUCOSE, FASTING 314 MG/DL (70-100); POTASSIUM SERUM 3.6 MEQ/L (3.5-5.1); SODIUM LEVEL 140 MEQ/L (136-145)
[2019-01-09] MEDS: NS 1,000 ML IV SCH ×2 (09:20→20:00)
[2019-01-09 09:45] VITALS: BP 145/70
--- NOTE | 2019-01-09 10:02 | REP ---
Chest x-ray: Two views. History: NG tube placement. Comparison chest x-ray: January 07, 2019. Findings: There is a gastric tube is noted in place coursing into the body of the stomach. On lateral radiograph again be traced well into the abdomen apparently through the body of the stomach to the distal stomach or duodenal region. Its tip is not well seen on the frontal view. monitoring electrodes are seen. The lungs are symmetrically aerated and no infiltrate is seen. Pleural angles are sharp. Impression: NG tube courses through the body of the stomach. No active cardiopulmonary disease. Electronically Signed by Diomedes Godfrey MD 01/09/2019 09:53 A
[2019-01-09] MEDS: HumaLOG INSULIN (NovoLOG) PER UNIT SC SCH ×3 (10:32→17:30)
[2019-01-09] MEDS: HEPARIN SOD (PORCINE) 5000 UNITS/ML VIAL SC SCH ×2 (10:33→20:23)
[2019-01-09] MEDS: MORPHINE 2 MG/ML 1ML VIAL (J2270) IV PRN ×3 (11:59→20:24)
[2019-01-09 12:00] VITALS: BP 142/82
[2019-01-09] MEDS: ONDANSETRON 4MG/2ML VIAL (J2405) IV PRN ×2 (12:23→18:30)
--- NOTE | 2019-01-09 15:32 | ECGEPIP ---
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
[2019-01-09 16:00] VITALS: BP 137/66
[2019-01-09] MEDS: PIPERACILLIN/TAZOBACTAM SOD 3.375 GM in D5W MINI-BAG PLUS 50 ML IV SCH ×2 (16:17→20:24)
[2019-01-09] MEDS ORDERED: CEPACOL LOZENGE PO PRN (18:00)
[2019-01-09 20:00] VITALS: BP 140/80
[2019-01-09] MEDS ORDERED: SODIUM CHLORIDE NASAL 0.65% SPRAY BTL (OCEAN) SCH (21:00)
[2019-01-09] MEDS: CHLORASEPTIC SPRAY MT PRN ×2 (21:37→23:55)
[2019-01-10] VITALS: BP 132/80
[2019-01-10] MEDS: PIPERACILLIN/TAZOBACTAM SOD 3.375 GM in D5W MINI-BAG PLUS 50 ML IV SCH (02:28)
[2019-01-10 04:00] VITALS: BP 130/82
[2019-01-10] MEDS: MORPHINE 2 MG/ML 1ML VIAL (J2270) IV PRN (04:19)
[2019-01-10] MEDS: CHLORASEPTIC SPRAY MT PRN ×2 (04:19→07:30)
[2019-01-10] MEDS: NS 1,000 ML IV SCH (05:02)
[2019-01-10 05:32] LABS: HEMATOCRIT 35.1 % (36.0-47.0); MEAN CORPUSCULAR HEMOGLOBIN 27.3 pg (27.0-33.0); MEAN CORPUSCULAR HGB CONC 31.1 g/dl (32.0-36.5); MEAN CORPUSCULAR VOLUME 87.8 fl (80.0-96.0); PLATELET COUNT, AUTOMATED 308 10^3/uL (150-450); WHITE BLOOD COUNT 6.5 10^3/uL (4.0-10.0)
[2019-01-10 05:33] LABS: HEMOGLOBIN 10.9 g/dl (12.0-15.5)
[2019-01-10 05:47] LABS: BLOOD UREA NITROGEN 12 MG/DL (7-18); CALCIUM LEVEL 7.6 MG/DL (8.5-10.1); CARBON DIOXIDE LEVEL 30 MEQ/L (21-32); CHLORIDE LEVEL 110 MEQ/L (98-107); CREATININE FOR GFR 0.54 MG/DL (0.55-1.30); GLOMERULAR FILTRATION RATE > 60.0 (>58); GLUCOSE, FASTING 188 MG/DL (70-100); MAGNESIUM LEVEL 1.5 MG/DL (1.8-2.4); POTASSIUM SERUM 2.8 MEQ/L (3.5-5.1); SODIUM LEVEL 145 MEQ/L (136-145)
[2019-01-10] MEDS ORDERED: KCL 20MEQ IN 100ML SWI (KRUN) 20 MEQ in IV 1 EA IV ONE ×2 (06:00)
[2019-01-10] MEDS: KCL 10MEQ/100ML SWI (KRUN) 10 MEQ in IV 1 EA IV SCH ×2 (06:15→08:14)
[2019-01-10] MEDS ORDERED: MAG SULF 1GM/100ML (MAG RUN) 1 GM in IV 1 EA IV ONE (07:00)
[2019-01-10] MEDS: HumaLOG INSULIN (NovoLOG) PER UNIT SC SCH (07:30)
[2019-01-10 08:00] VITALS: BP 143/83
--- NOTE | 2019-01-10 08:24 | CR ---
DATE OF CONSULTATION: 01/09/2019 REASON FOR CONSULTATION: Ventral hernia with small intestinal obstruction. HISTORY OF PRESENT ILLNESS: The patient is a 43-year-old woman with diabetes, morbid obesity and a history of multiple prior abdominal surgical procedures who presented to the emergency department three times over the past 2 days with symptoms of abdominal pain with nausea and vomiting. She had two CT scans obtained on the and 08 of January that were interpreted as showing a small bowel obstruction related to a loop of small bowel in the anterior abdominal wall. She signed out of the emergency department against medical advice but then returned again on the late night of the or mat weaver of the . On this occasion she elected to stay because of persistent nausea and vomiting. The CT scan was not repeated. A nasogastric tube was inserted for decompression and she received IV fluid. She was admitted by the hospitalist service, and I am now consulted to evaluate the patient regarding her possible bowel obstruction and recurrent ventral hernia. ALLERGIES: The patient reports allergies to kenn and seafood but apparently has NO KNOWN DRUG ALLERGIES recorded. MEDICATIONS: The patient reports that she has not been taking any regular medications. She does not have a primary care provider at this time. PAST MEDICAL HISTORY: Medical history is significant for morbid obesity. She reportedly has sleep apnea. She has diabetes mellitus type 2 and has a history of bipolar disorder. SURGICAL HISTORY: Her surgical history is significant for tonsillectomy, pilonidal cystectomy, section, ventral hernia repairs and her most recent abdominal hernia repair was in June 2016 by myself, at which time she had presented with an incarcerated hernia and a piece of prosthetic mesh was used to reinforce the abdominal wall. She has been back into the hospital several times over the last year or two with recurrent obstructions. She was on one occasion transferred to [place] for consideration of surgery, as this would likely require a component separation but no surgery was performed there. SOCIAL HISTORY: The patient is a current smoker and apparently smoking greater than a pack a day. She denies any alcohol or illegal drugs. FAMILY HISTORY: The patient's mother had a cerebrovascular accident. REVIEW OF SYSTEMS: The patient denies any cardiac issues. She has no cough, wheezing or sputum production. She denies any dysuria or hematuria. She has had no melena or hematochezia. She denies any new bone or joint issues. No history of deep vein thrombosis (DVT) or pulmonary embolus. PHYSICAL EXAMINATION: Patient is lying quietly on the hospital bed at the time of my evaluation. She is alert and responsive. Skin is warm and dry. She does not appear overly uncomfortable. Sclerae are anicteric. Mucous membranes are moist. Neck is supple. Heart exam shows a regular rate and rhythm. The lungs are clear. The abdomen is quite protuberant and obese. She has some significant scarring along the midline extending from the epigastrium down to the suprapubic area. There is some widening of scarring in the midportion of the abdomen. She does have some bowel sounds present on auscultation. The abdomen is soft. There is some mild tenderness along the midline and just to the left in the midline about 10 cm above the umbilicus. With gentle pressure a swishing sound is identified consistent with air in the lumen of the small bowel being compressed and I have the impression that I may have reduced a loop of bowel or at least the air within that bowel into the abdomen. The abdomen is not tightly distended and she has no significant tenderness elsewhere in the abdomen. Extremities are without peripheral edema. LABORATORY STUDIES: Her laboratory studies include a CBC from 09/16 in the morning on the showing a white count of 12 with a hemoglobin of 14, hematocrit 42 and platelet count of 392,000. Differential count shows 84% neutrophils, 9% lymphocytes and 5% monocytes. Her chemistry profile shows a sodium of 140, potassium 3.6, chloride 105, CO2 of 26, BUN of 10, creatinine 0.5 and glucose of 314. Liver function tests are normal with a total protein of 6.5, albumin 3.0 and a lipase low at 43. The HCG is less than 5.0. CT image which had been obtained on the evening of January 08 was interpreted by the radiologist as showing a distended loop of small bowel extending into a hernia in the anterior abdominal wall. There were some dilated loops of small bowel containing fluid and air in the more mid to upper small bowel. There were some decompressed loops of small bowel in the right lower quadrant in particular. There was no evidence of free air or free fluid. There is some fluid in a chronic fluid collection, which followed her prior abdominal wall and this had been noted previously. IMPRESSION: 1. Small bowel obstruction associated with a recurrent ventral hernia. 2. Morbid obesity. 3. Bipolar disorder. 4. Diabetes mellitus. 5. Nicotine addiction. RECOMMENDATIONS: At this point, the patient appears quite stable. With her nasogastric tube in place, she has been draining some greenish-brown fluid. She reports that her discomfort has diminished somewhat. Her hernia has a small presumed small bowel loop by CT scan and in this area identified on the CT I am able to compress an air containing loop of bowel, which may actually reduced partially with compression. This was not suggestive of a strangulated loop. I have recommended to the patient that we continue to monitor her for possible resolution of her obstruction. If she does not resolve in a reasonable period of time then I would consider making a limited incision over her palpable small bowel loop to reduce this into the abdomen and repair of the small defect at this area. Her abdominal wall reconstruction, if it ever comes to that, could be done as an elective procedure and would likely require consideration of a bilateral component separation to bring together healthy muscle and fascia to be reinforced by prosthetic mesh. I will order a KUB for the morning to see what this tells us about progression of her bowel obstruction.
--- NOTE | 2019-01-10 08:44 | REP ---
Supine abdomen two views: The bowel gas pattern is normal. There is no evidence of bowel obstruction. There is a large mottled calcification in the pelvis to the right of midline. When the compared to the abdomen/pelvis CT of 01/08/2019 this represents a large calcified uterine leiomyoma. The distal tip of a nasogastric tube can be seen in the upper abdomen, likely in the gastric antrum. Impression: Normal bowel gas pattern. Calcified uterine leiomyoma. Nasogastric tube tip likely in the gastric antrum. Electronically Signed by Braydon Dillon MD 01/10/2019 08:35 A
--- NOTE | 2019-01-10 17:50 | DS.PDOC ---
Discharge Summary General Date of Admission Jan 09, 2019 at 07:54 Date of Discharge 01/10/19 Discharge Summary PROCEDURES PERFORMED DURING STAY: None ADMITTING DIAGNOSES: Bowel obstruction Hernia of anterior abdominal wall Nausea and vomiting in adult Diabetes mellitus DISCHARGE DIAGNOSES: Bowel obstruction Hernia of anterior abdominal wall Nausea and vomiting in adult Diabetes mellitus COMPLICATIONS/CHIEF COMPLAINT: Bowel Obstruction. HISTORY OF PRESENT ILLNESS: Patient is 53 years old female with past history of bipolar disorder, small bowel obstruction in the past, presented hospital with severe abdominal pain. Patient was readmitted today after she left yesterday in the hospital AGAINST MEDICAL ADVICE. On previous admission patient was found to have an abdominal CAT scan massive anterior abdominal wall hernia with large collections of fluid in the anterior panniculus, Decompressed ileum extending into this hernia and severely dilated loop of small bowel also extending into this hernia. Severe narrowing of the bowel as it traverses the anterior abdominal wall defect. This is consistent with a high-grade obstruction. Today patient decided to come to the hospital due to continuous severe abdominal pain and nausea with vomiting. Patient did not have any bowel movement for 3 days. In ER patient was found to have leukocytes count 12.4, hemoglobin 13.6. NG tube with intermittent suction has been placed. Dr. Martins was contacted by phone by emergency . HOSPITAL COURSE: Today patient left the hospital AGAINST MEDICAL ADVICE DISCHARGE MEDICATIONS: Please see below. ALLERGIES: Please see below. PHYSICAL EXAMINATION ON DISCHARGE: VITAL SIGNS: Please see below. GENERAL: HEENT: NECK: CARDIOVASCULAR EXAMINATION: RESPIRATORY EXAMINATION: ABDOMINAL EXAMINATION: EXTREMITIES: SKIN: NEUROLOGICAL EXAMINATION: PSYCHIATRIC EXAMINATION: LABORATORY DATA: Please see below. IMAGING: PROGNOSIS: ACTIVITY: [As tolerated]. DIET: DISCHARGE PLAN: DISPOSITION: Against Medical Advice. DISCHARGE INSTRUCTIONS: 1. . ITEMS TO FOLLOWUP ON ON OUTPATIENT: 1. . DISCHARGE CONDITION: [Stable]. TIME SPENT ON DISCHARGE: Greater than minutes. Vital Signs/I&Os Vital Signs Date Time Temp Pulse Resp B/P (MAP) Pulse Ox O2 Delivery O2 Flow Rate FiO2 01/10/19 08:00 98.2 70 18 143/83 (103) 96 01/10/19 04:00 Room Air I&O- Last 24 Hours up to 6 AM 01/10/19 05:59 Intake Total 2300 ml Output Total 3325 ml Balance -1025 ml Laboratory Data Labs 24H Laboratory Tests 2 01/09/19 23:54: Bedside Glucose (Misc Panel) 160H 01/10/19 04:22: Bedside Glucose (Misc Panel) 172H 01/10/19 04:50: Nucleated Red Blood Cells % (auto) 0.0, Anion Gap 5L, Glomerular Filtration Rate > 60.0, Calcium Level 7.6L, Magnesium Level 1.5L CBC/BMP Laboratory Tests 01/10/19 04:50 FSBS Laboratory Tests Test 01/09/19 23:54 01/10/19 04:22 Range/Units Bedside Glucose (Misc Panel) 160 172 70-105 MG/DL Microbiology Microbiology 01/09/19 Blood Culture - Preliminary, Resulted No growth after 24 hours . All specim... Discharge Medications No Active Prescriptions or Reported Meds Allergies Coded Allergies: Amarjit (Verified Allergy, Intermediate, RASH, 01/09/19) SEAFOOD (Verified Allergy, Intermediate, RASH, 01/09/19) shellfish derived (Verified Allergy, Intermediate, hives, 01/09/19) KISHA HESS DO Jan 10, 2019 17:50
== END 2019-01-10 09:32 | disposition left against medical advice (07) | DRG 395 ==
LOC: M ED 06:35 → M ED INP 07:54 → M PCU 09:41
PROVIDERS: ADMIT Internal Medicine; ATTEND Internal Medicine
DX: K43.6 Other and unspecified ventral hernia with obstruction, without gangrene (principal); F31.9 Bipolar disorder, unspecified; E66.01 Morbid (severe) obesity due to excess calories; E11.9 Type 2 diabetes mellitus without complications; Z91.018 Allergy to other foods; Z91.013 Allergy to seafood; F17.200 Nicotine dependence, unspecified, uncomplicated; R11.2 Nausea with vomiting, unspecified; G47.30 Sleep apnea, unspecified

== ENCOUNTER 2019-03-11 11:02 | Emergency (ER) | payer MEDICARE, MEDICAID ==
[~2019-03-11] VITALS: Ht 157.5 cm; Wt 102.8 kg
[2019-03-11 11:53] LABS: BASO # 0.1 10^3/uL (0.0-0.2); BASO % 0.6 % (0.0-1.0); EOS # 0.2 10^3/uL (0.0-0.5); EOS % 2.9 % (0.0-3.0); HEMATOCRIT 41.2 % (36.0-47.0); LYMPH # 1.7 10^3/uL (1.5-5.0); LYMPH % 20.9 % (24.0-44.0); MEAN CORPUSCULAR HEMOGLOBIN 26.6 pg (27.0-33.0); MEAN CORPUSCULAR HGB CONC 31.6 g/dl (32.0-36.5); MEAN CORPUSCULAR VOLUME 84.4 fl (80.0-96.0); MONO # 0.5 10^3/uL (0.0-0.8); MONO % 5.4 % (0.0-5.0); NEUTROPHILS # 5.8 10^3/uL (1.5-8.5); PLATELET COUNT, AUTOMATED 375 10^3/uL (150-450); RED BLOOD COUNT 4.88 10^6/uL (4.00-5.40); WHITE BLOOD COUNT 8.3 10^3/uL (4.0-10.0)
[2019-03-11 12:11] LABS: ALBUMIN 3.1 GM/DL (3.2-5.2); BILIRUBIN,DIRECT 0.1 MG/DL (0.0-0.2); BILIRUBIN,TOTAL 0.5 MG/DL (0.2-1.0); TOTAL PROTEIN 6.8 GM/DL (6.4-8.2)
[2019-03-11] MEDS ORDERED: NS 1,000 ML IV SCH (12:59)
[2019-03-11] MEDS ORDERED: MORPHINE 4 MG/ML 1ML VIAL/SYRINGE (J2270) IV ONE ×2 (13:00→16:45)
[2019-03-11] MEDS ORDERED: ONDANSETRON 4MG/2ML VIAL (J2405) IV ONE (13:00)
[2019-03-11] MEDS ORDERED: HumuLIN R (REGULAR) INSULIN (NovoLIN R) **100U/ML** PER UNIT IV ONE (13:00)
[2019-03-11] MEDS: GASTROGRAFIN SOLUTION 30ML PO SCH ×2 (14:00→14:36)
[2019-03-11] MEDS ORDERED: ISOVUE-370 76% 100ML VIAL (Q9967) As Ordered ONE (14:37)
--- NOTE | 2019-03-11 17:01 | REP ---
CT ABDOMEN AND PELVIS WITH ORAL AND IV CONTRAST: TECHNIQUE: Axial contrast enhanced images from the lung bases to the pubic symphysis using 100 mL Isovue 370 intravenous contrast material with multiplanar reformations. COMPARISON: 01/08/2019. Visualized lung bases demonstrate no infiltrate. The liver, gallbladder, spleen, adrenals, pancreas and kidneys appear unremarkable. There is no hydronephrosis bilaterally. There is no abdominal aortic aneurysm. There is no adenopathy. No free air is seen. I see no definite bowel wall thickening. Large anterior abdominal wall hernia is again noted containing several bowel loops and a small amount of loculated fluid inferiorly. There is a discrete oval fluid loculation which is unchanged since the prior study. The other areas of fluid in the inferior aspect of the hernia sac appear mildly improved. I do not see current evidence of small bowel obstruction. Large fibroid uterus is again noted. Dominant follicle of the right ovary measures 2.4 cm. Urinary bladder is not well distended and not well evaluated. IMPRESSION: Large anterior abdominal wall hernia again noted containing several bowel loops. No current evidence of small bowel obstruction. No free air. Loculations of free fluid in the inferior hernia sac appear mildly improved. A discrete oval area of loculated fluid is unchanged within the hernia. Electronically Signed by Braydon Olson MD 03/12/2019 09:54 A
[2019-03-11 18:58] VITALS: BP 166/94
== END 2019-03-11 19:01 | disposition home or self-care (01) ==
LOC: M ED 11:02
DX: R10.84 Generalized abdominal pain (principal); K43.9 Ventral hernia without obstruction or gangrene; R73.9 Hyperglycemia, unspecified; R11.2 Nausea with vomiting, unspecified; E66.9 Obesity, unspecified; G47.30 Sleep apnea, unspecified; F31.9 Bipolar disorder, unspecified; F17.210 Nicotine dependence, cigarettes, uncomplicated; Z91.018 Allergy to other foods; Z91.013 Allergy to seafood
CPT/HCPCS: 74177; 80047; 80076; 82150; 83690; 84702; 85025; 96361; 96374; 96375; 96376; 99284; J2270; J2405; Q9963; Q9967

== ENCOUNTER 2019-03-21 10:55 | Emergency (ER) | payer MEDICARE, MEDICAID ==
[2019-03-21 11:09] VITALS: BP 156/82
== END 2019-03-21 11:59 | disposition left against medical advice (07) ==
LOC: M ED 10:55
DX: Z53.29 Procedure and treatment not carried out because of patient's decision for other reasons (principal)

== ENCOUNTER 2019-03-23 20:16 | Emergency (ER) | payer MEDICARE, MEDICAID ==
[~2019-03-23] VITALS: Ht 157.5 cm; Wt 102.3 kg
[2019-03-23 20:55] LABS: BASO # 0.1 10^3/uL (0.0-0.2); BASO % 0.8 % (0.0-1.0); EOS # 0.2 10^3/uL (0.0-0.5); EOS % 2.6 % (0.0-3.0); HEMATOCRIT 38.2 % (36.0-47.0); HEMOGLOBIN 12.1 g/dl (12.0-15.5); LYMPH # 1.7 10^3/uL (1.5-5.0); LYMPH % 17.9 % (24.0-44.0); MEAN CORPUSCULAR HEMOGLOBIN 26.4 pg (27.0-33.0); MEAN CORPUSCULAR HGB CONC 31.7 g/dl (32.0-36.5); MEAN CORPUSCULAR VOLUME 83.2 fl (80.0-96.0); MONO # 0.5 10^3/uL (0.0-0.8); MONO % 5.5 % (0.0-5.0); NEUTROPHILS # 6.7 10^3/uL (1.5-8.5); NEUTROPHILS % 72.9 % (36.0-66.0); PLATELET COUNT, AUTOMATED 459 10^3/uL (150-450); RED BLOOD COUNT 4.59 10^6/uL (4.00-5.40); WHITE BLOOD COUNT 9.2 10^3/uL (4.0-10.0)
[2019-03-23 21:19] LABS: ALBUMIN 3.3 GM/DL (3.2-5.2); BILIRUBIN,DIRECT 0.1 MG/DL (0.0-0.2); BILIRUBIN,TOTAL 0.5 MG/DL (0.2-1.0); TOTAL PROTEIN 7.1 GM/DL (6.4-8.2)
[2019-03-23] MEDS ORDERED: SIMETHICONE 80 MG CHEW TAB PO STA (21:52)
[2019-03-23] MEDS ORDERED: ISOVUE-370 76% 100ML VIAL (Q9967) As Ordered ONE (21:56)
[2019-03-23] MEDS ORDERED: DICYCLOMINE 10 MG CAP PO ONE (22:00)
--- NOTE | 2019-03-23 23:02 | REPVR ---
PROCEDURE INFORMATION: Exam: CT Abdomen And Pelvis With Contrast Exam date and time: 03/23/2019 10:00 PM Age: 43 years old Clinical indication: Abdominal pain; Localized; Left; Additional info: Left abd pain, no passing gas, vomiting x 2 days, hernia TECHNIQUE: Imaging protocol: Computed tomography of the abdomen and pelvis with intravenous contrast. Radiation optimization: All CT scans at this facility use at least one of these dose optimization techniques: automated exposure control; mA and/or kV adjustment per patient size (includes targeted exams where dose is matched to clinical indication); or iterative reconstruction. Contrast material: ISOVUE 370; Contrast volume: 100 ml; Contrast route: IV; COMPARISON: CT ABD/PEL W/IV ORAL CONTRAS 2019-03-11 16:13 FINDINGS: Limitations: Limited by patient's body habitus. Liver: Normal. No mass. Gallbladder and bile ducts: Normal. No calcified stones. No ductal dilation. Pancreas: 1.5 cm pancreatic cystic lesion is unchanged, question cystic neoplasm or cyst. Spleen: Normal. No splenomegaly. Adrenals: Mild left adrenal gland thickening. Kidneys and ureters: Normal. No hydronephrosis. Stomach and bowel: Multiple dilated small bowel loops in the anterior lower abdomen along the abdominal wall, somewhat mild wall thickening, question early/partial small bowel obstruction or enteritis. Gastric antral thickening, correlate for gastritis. Adherent bowel loops to the anterior abdomen. Appendix: No evidence of appendicitis. Intraperitoneal space: Unremarkable. No free air. No significant fluid collection. Vasculature: Unremarkable. No abdominal aortic aneurysm. Lymph nodes: Unremarkable. No enlarged lymph nodes. Bladder: Unremarkable as visualized. Reproductive: Unchanged calcified uterine fibroid and numerous additional noncalcified fibroids. Bones/joints: Unremarkable. No acute fracture. Soft tissues: Complex large ventral abdominal wall hernia. Unchanged loculated area of fluid within the abdominal wall measuring 7 cm. IMPRESSION: 1. Multiple dilated small bowel loops in the anterior lower abdomen along the abdominal wall, somewhat mild wall thickening, question early/partial small bowel obstruction or enteritis. 2. Gastric antral thickening, correlate for gastritis. 3. 1.5 cm pancreatic cystic lesion is unchanged, question cystic neoplasm or cyst. 4. Complex large ventral abdominal wall hernia. 5. Unchanged loculated area of fluid within the abdominal wall measuring 7 cm. 6. Unchanged calcified uterine fibroid and numerous additional noncalcified fibroids. Electronically signed by: Marlon Hinkle On 03/23/2019 23:01:45 PM
[2019-03-23 23:25] VITALS: BP 130/70
== END 2019-03-24 00:07 | disposition left against medical advice (07) ==
LOC: M ED 20:16
DX: K56.699 Other intestinal obstruction unspecified as to partial versus complete obstruction (principal); K43.9 Ventral hernia without obstruction or gangrene; K86.2 Cyst of pancreas; D25.9 Leiomyoma of uterus, unspecified; R93.5 Abnormal findings on diagnostic imaging of other abdominal regions, including retroperitoneum; E11.9 Type 2 diabetes mellitus without complications; F17.200 Nicotine dependence, unspecified, uncomplicated; Z53.20 Procedure and treatment not carried out because of patient's decision for unspecified reasons; Z91.013 Allergy to seafood; Z91.018 Allergy to other foods
CPT/HCPCS: 74177; 80047; 80076; 81001; 83690; 84702; 85025; 99284; Q9967

== ENCOUNTER 2019-04-16 09:04 | Emergency (ER) | payer MEDICARE, MEDICAID ==
[~2019-04-16] VITALS: Ht 157.5 cm; Wt 99.5 kg
[2019-04-16 09:10] VITALS: BP 144/85
== END 2019-04-16 10:32 | disposition left against medical advice (07) ==
LOC: M ED 09:04 → EDBD 09:04 → M ED 10:32
DX: Z53.21 Procedure and treatment not carried out due to patient leaving prior to being seen by health care provider (principal)

== ENCOUNTER 2019-04-23 16:11 | Emergency (ER) | payer MEDICARE, MEDICAID ==
[~2019-04-23] VITALS: Ht 157.5 cm; Wt 102.6 kg
[2019-04-23 16:12] VITALS: BP 211/112
== END 2019-04-23 16:34 | disposition left against medical advice (07) ==
LOC: M ED 16:11
DX: Z53.21 Procedure and treatment not carried out due to patient leaving prior to being seen by health care provider (principal)

== ENCOUNTER 2019-05-10 08:16 | Emergency (ER) | payer MEDICARE, MEDICAID ==
[~2019-05-10] VITALS: Ht 157.5 cm; Wt 102.6 kg
[2019-05-10] MEDS ORDERED: AMOX875T2 PO (08:27)
[2019-05-10] MEDS ORDERED: KETOROLAC 30 MG/ML VIAL (J1885) IV ONE (09:00)
[2019-05-10 09:15] LABS: BASO # 0.1 10^3/uL (0.0-0.2); BASO % 0.7 % (0.0-1.0); EOS # 0.3 10^3/uL (0.0-0.5); EOS % 3.4 % (0.0-3.0); HEMATOCRIT 42.9 % (36.0-47.0); HEMOGLOBIN 13.6 g/dl (12.0-15.5); LYMPH # 1.8 10^3/uL (1.5-5.0); LYMPH % 18.3 % (24.0-44.0); MEAN CORPUSCULAR HEMOGLOBIN 25.8 pg (27.0-33.0); MEAN CORPUSCULAR HGB CONC 31.7 g/dl (32.0-36.5); MEAN CORPUSCULAR VOLUME 81.3 fl (80.0-96.0); MONO # 0.4 10^3/uL (0.0-0.8); MONO % 3.9 % (0.0-5.0); NEUTROPHILS # 7.4 10^3/uL (1.5-8.5); NEUTROPHILS % 73.4 % (36.0-66.0); PLATELET COUNT, AUTOMATED 453 10^3/uL (150-450); RED BLOOD COUNT 5.28 10^6/uL (4.00-5.40)
[2019-05-10] MEDS ORDERED: GASTROGRAFIN SOLUTION 30ML (Q9963) As Ordered ONE (09:56)
[2019-05-10] MEDS: GASTROGRAFIN SOLUTION 30ML PO SCH ×2 (10:23→10:24)
[2019-05-10] MEDS ORDERED: ISOVUE-370 76% 100ML VIAL (Q9967) As Ordered ONE (12:13)
[2019-05-10] MEDS ORDERED: LORazepam 2 MG/ML VIAL (J2060) IV STA (13:18)
[2019-05-10 13:36] VITALS: BP 181/109
--- NOTE | 2019-05-10 13:49 | REP ---
CT abdomen and pelvis with IV, without oral contrast: History: Ventral hernia. Rule out small bowel obstruction. Comparison CT study March 23, 2019. CT findings: Digital preliminary slicing machine tender radiograph shows uterine myomatous calcifications in the central pelvis just to the right of midline. There are multiple air-fluid levels in small and large bowel loops. Axial CT images demonstrate that the lung bases are free of infiltrate. There is discoid atelectasis in the right middle lobe. No adrenal lesion is seen. The liver and the spleen are normal in size and homogeneous in texture. No abnormality is noted in the gallbladder or in the pancreas. The kidneys enhance symmetrically and are morphologically intact. No retroperitoneal mass or adenopathy is seen. There is marked enlargement of the uterus with numerous fibroids. Uterine dimensions overall are approximately 12.6 cm craniocaudal by 11.2 cm anterior to posterior by 12.7 cm right to left. There is a calcified fibroid along the anterior subserosal margin of the uterus. These findings are unchanged from the comparison study of March 23, 2019. There is a complex ventral hernia with herniation of multiple loops of small bowel. Large and small bowel loops are mildly dilated and filled with predominately fluid. The hernia involves the anterior wall of the midportion of the transverse colon as well. The colon is otherwise not involved in the hernia. There is evidence of a hematoma seroma fluid collection in the antral wall of the abdomen between two herniated loops of small intestine. This is unchanged from prior study. It has somewhat thickened cortes. This hematoma seroma collection measures 8.6 cm right to left by 3.5 cm anterior to posterior by 11.9 cm cranial to caudal. It appears unchanged from the March 23, 2019 study. Small bowel loops are more distended than they were at the time of the March 23, 2019 study. The distal ileum is decompressed implying some degree of small bowel obstruction. There is stranding of mesenteric fat in the central abdomen. There is minimal interloop ascitic fluid in the central abdomen. There is no evidence of free intraperitoneal air or intraperitoneal fluid collection. Impression: 1. Complex ventral hernia with a hematoma seroma of the anterior abdominal wall interposed between two herniated loops of small bowel. There is partial small bowel obstruction with moderate dilation of proximal small bowel loops and decompressed distal loops. There is some interloop fluid and mesenteric stranding associated with this. No free air. 2. Markedly enlarged fibroid uterus. Electronically Signed by Diomedes Godfrey MD 05/10/2019 03:12 P
== END 2019-05-10 14:22 | disposition left against medical advice (07) ==
LOC: EDBD 08:16 → M ED 08:16
DX: K56.690 Other partial intestinal obstruction (principal); K43.9 Ventral hernia without obstruction or gangrene; N85.2 Hypertrophy of uterus; Z53.20 Procedure and treatment not carried out because of patient's decision for unspecified reasons; E11.9 Type 2 diabetes mellitus without complications; G47.30 Sleep apnea, unspecified; E66.9 Obesity, unspecified; F17.210 Nicotine dependence, cigarettes, uncomplicated; Z91.013 Allergy to seafood; Z91.018 Allergy to other foods

== ENCOUNTER 2019-05-10 14:46 | Inpatient (IN) | payer MEDICARE, MEDICAID ==
[~2019-05-10] VITALS: Ht 157.5 cm; Wt 99.5 kg
[~2019-05-10 14:46] MED LIST changes: +AMOX875T2 PO
[2019-05-10] MEDS ORDERED: HALOPERIDOL 5 MG/ML VIAL (J1630) IV ONE (15:15)
--- NOTE | 2019-05-10 15:42 | HPEPDOC ---
General Date of Admission Date of Service: May 10, 2019 Chief Complaint The patient is a 43-year-old female admitted for abdominal pain. Source: Patient Exam Limitations: No limitations History of Present Illness 43 year old female presents with abdominal pain. Symptoms started at 2AM today with abdominal pain, periumbilical, crampy/sharp in nature, associated with nausea and vomiting x 2 episodes (nonbloody/nonbilious). Presented to the ED today due to continuation of symptoms. Initially signed out AMA but returned soon after due to lightheadedness. CT A/P with complex ventral hernia with seroma/hematoma of anterior abdominal wall interposed between two herniated loops of small bowel, partial SBO, no free air. Surgery Dr. Martins consulted for management. Patient is awake and appears comfortable, states pain is currently 2/10 in intensity. Home Medications Miscellaneous Medications Amoxicillin/Potassium Clav (Amox-Clav 875-125 mg Tablet) 1 Each Tablet, (Reported) Allergies Coded Allergies: Amarjit (Verified Allergy, Intermediate, RASH, 01/09/19) SEAFOOD (Verified Allergy, Intermediate, RASH, 01/09/19) shellfish derived (Verified Allergy, Intermediate, hives, 01/09/19) Past Medical History Medical History Bipolar disorder Diabetes Obesity/sleep apnea Surgical History Status post tonsillectomy Status post pilondal cystectomy Status post . Multiple ventral hernia repairs Multiple episodes of small bowel obstruction requiring surgical repair Family History Significant Family History: No pertinent family hx Social History * Smoker: Denies Alcohol: Denies Drugs: denies A-FIB/CHADSVASC A-FIB History Current/History of A-Fib/PAF?: No Current PO Anticoag Therapy: No Review of Systems Constitutional: Denies: Chills, Fever, Night Sweats Eyes: Denies: Pain, Vision change ENT: Denies: Head Aches, Ear Pain, Dysphagia Skin: Denies: Rash, Lesions, Breakdown Pulmonary: Denies: Dyspnea, Cough Cardiovascular: Denies: Chest Pain, Palpitations, Orthopnea, Paroxysmal Noc. Dyspnea, Lt Headedness Gastrointestinal: Reports: Nausea, Vomiting, Abdominal Pain; Denies: Diarrhea Genitourinary: Denies: Dysuria, Frequency, Incontinence, Retention Hematologic: Denies: Bruising, Bleeding Excessively Musculoskeletal: Denies: Neck Pain, Back Pain, Joint Pain, Muscle Pain, Spasms Neurological: Denies: Weakness, Numbness, Change in speech, Confusion Psych: Reports: Mood Normal; Denies: Depression, Memory Issues Physical Examination General Exam: Positive: Alert, No Acute Distress Eye Exam: Positive: PERRLA, Conjunctiva & lids normal, EOMI; Negative: Sclera icteric ENT Exam: Positive: Atraumatic, Mucous membr. moist/pink, Pharynx Normal Neck Exam: Positive: Supple; Negative: JVD, thyromegaly Chest Exam: Positive: Clear to auscultation, Normal air movement Heart Exam: Positive: Rate Normal, Regular Rhythm, Normal S1, Normal S2; Negative: Murmurs, Rubs Telemetry: Positive: No significant arrhythmia Abdomen Exam: Positive: Normal bowel sounds, BS Hypoactive, Soft, Tenderness, Mass, Hernia (ventral hernia); Negative: Hepatospenomegaly Extremity Exam: Positive: Normal pulses; Negative: Clubbing, Cyanosis, Edema Skin Exam: Positive: Nl turgor and temperature; Negative: Breakdown, Lesion Neuro Exam: Positive: Normal Gait, Normal Speech, Cranial Nerves 3-12 NL, Reflexes 2+ Psych Exam: Positive: Mental status NL, Mood NL, Oriented x 3 Vital Signs Vital Signs Date Time Temp Pulse Resp B/P (MAP) Pulse Ox O2 Delivery O2 Flow Rate FiO2 05/10/19 15:20 05/10/19 14:47 95.1 101 18 95 Room Air Assessment/Plan 1. partial SBO - Admit to medical floor. - surgery Dr. Avendaño consulted by ED . - NPO, NGT to intermittent suction. - IVF NS. - pain control prn. - zofran prn. 2. ventral wall hernia - management as per surgery. 3. DM2 - not on insulin/oral agents. - check A1c, FSBS/SSI coverage. - last A1c 03/2019 10.4. Plan / VTE VTE Prophylaxis Ordered?: Yes DAILY LOMABRDI MD May 10, 2019 15:42
[2019-05-10] MEDS ORDERED: NS 1,000 ML IV SCH (16:00)
[2019-05-10] MEDS ORDERED: DEXTROSE 50% 50 ML SYRINGE IV PRN (16:00)
[2019-05-10] MEDS ORDERED: ONDANSETRON 4MG/2ML VIAL (J2405) IV PRN (16:00)
[2019-05-10] MEDS ORDERED: GLUCOSE 4 GM CHEW TABLET PO PRN (16:00)
[2019-05-10] MEDS ORDERED: MORPHINE 2 MG/ML 1ML VIAL (J2270) IV PRN (16:00)
[2019-05-10] MEDS ORDERED: GLUCAGON FOR INJ 1 MG VIAL (J1610) SC PRN (16:00)
--- NOTE | 2019-05-10 16:32 | REP ---
Chest x-ray: Single AP view. History: Post NG tube placement. Comparison chest x-ray January 09, 2019. Findings: A nasogastric tube has been passed into the left upper quadrant of the abdomen. The lungs are symmetrically aerated. No infiltrate is seen. Pleural angles are sharp. Heart size is borderline. Heart is unchanged in size. Pulmonary vasculature is not increased. Impression: NG tube left upper quadrant. Borderline heart size unchanged. No acute disease. Electronically Signed by Diomedes Godfrey MD 05/10/2019 04:24 P
[2019-05-10 16:38] VITALS: BP 180/83
[2019-05-10] MEDS ORDERED: HumaLOG INSULIN (NovoLOG) PER UNIT SC SCH (17:30)
== END 2019-05-10 17:18 | disposition left against medical advice (07) | DRG 394 ==
LOC: M ED 14:46 → M ED INP 15:40 → ENRESERVDT 16:14 → ENRESERVTM 16:14
PROVIDERS: ADMIT Internal Medicine; ATTEND Internal Medicine
DX: K43.6 Other and unspecified ventral hernia with obstruction, without gangrene (principal); K56.690 Other partial intestinal obstruction; Z91.013 Allergy to seafood; Z91.018 Allergy to other foods; F31.9 Bipolar disorder, unspecified; G47.33 Obstructive sleep apnea (adult) (pediatric); E11.9 Type 2 diabetes mellitus without complications

== ENCOUNTER 2019-05-28 23:57 | Emergency (ER) | payer MEDICARE, MEDICAID ==
[2019-05-29] MEDS ORDERED: KETOROLAC 30 MG/ML VIAL (J1885) IV ONE (00:45)
[2019-05-29] MEDS ORDERED: NS 500 ML IV ONE (00:45)
[2019-05-29 01:02] LABS: BASO # 0.1 10^3/uL (0.0-0.2); BASO % 0.6 % (0.0-1.0); EOS # 0.3 10^3/uL (0.0-0.5); EOS % 2.5 % (0.0-3.0); HEMATOCRIT 41.2 % (36.0-47.0); HEMOGLOBIN 13.1 g/dl (12.0-15.5); LYMPH # 1.4 10^3/uL (1.5-5.0); LYMPH % 13.7 % (24.0-44.0); MEAN CORPUSCULAR HGB CONC 31.8 g/dl (32.0-36.5); MEAN CORPUSCULAR VOLUME 81.7 fl (80.0-96.0); MONO # 0.5 10^3/uL (0.0-0.8); MONO % 4.7 % (0.0-5.0); NEUTROPHILS # 8.2 10^3/uL (1.5-8.5); NEUTROPHILS % 78.1 % (36.0-66.0); PLATELET COUNT, AUTOMATED 382 10^3/uL (150-450); RED BLOOD COUNT 5.04 10^6/uL (4.00-5.40); WHITE BLOOD COUNT 10.4 10^3/uL (4.0-10.0)
[2019-05-29] MEDS ORDERED: ONDANSETRON 4MG/2ML VIAL (J2405) As Ordered ONE (01:12)
[2019-05-29] MEDS ORDERED: ONDANSETRON 4MG/2ML VIAL (J2405) IV ONE (01:15)
[2019-05-29 01:27] LABS: ALBUMIN 3.3 GM/DL (3.2-5.2); ALT/SGPT 15 U/L (12-78); BILIRUBIN,DIRECT 0.1 MG/DL (0.0-0.2); BILIRUBIN,TOTAL 0.5 MG/DL (0.2-1.0); BLOOD UREA NITROGEN 14 MG/DL (7-18); CALCIUM LEVEL 8.7 MG/DL (8.5-10.1); CARBON DIOXIDE LEVEL 26 MEQ/L (21-32); CHLORIDE LEVEL 99 MEQ/L (98-107); CREATININE FOR GFR 0.61 MG/DL (0.55-1.30); GLOMERULAR FILTRATION RATE > 60.0 (>58); GLUCOSE, FASTING 286 MG/DL (70-100); LIPASE 122 U/L (73-393); POTASSIUM SERUM 4.2 MEQ/L (3.5-5.1); SODIUM LEVEL 134 MEQ/L (136-145)
[2019-05-29] MEDS ORDERED: ISOVUE-370 76% 100ML VIAL (Q9967) As Ordered ONE (01:28)
[2019-05-29] MEDS ORDERED: MORPHINE 4 MG/ML 1ML VIAL/SYRINGE (J2270) IV PRN (02:15)
--- NOTE | 2019-05-29 02:21 | REPVR ---
PROCEDURE INFORMATION: Exam: CT Abdomen And Pelvis With Contrast Exam date and time: 05/29/2019 12:44 AM Age: 43 years old Clinical indication: Abdominal pain; Generalized; Prior surgery; Surgery date: 6+ months; Surgery type: Hernia; Additional info: Llq pain, n/v, HX of obx TECHNIQUE: Imaging protocol: Computed tomography of the abdomen and pelvis with intravenous contrast. Radiation optimization: All CT scans at this facility use at least one of these dose optimization techniques: automated exposure control; mA and/or kV adjustment per patient size (includes targeted exams where dose is matched to clinical indication); or iterative reconstruction. Contrast material: ISO; Contrast volume: 100 ml; Contrast route: AC; COMPARISON: CT ABD/PEL W/IV ORAL CONTRAS 05/10/2019 11:56 AM FINDINGS: Liver: Dome of the liver is not fully imaged. No mass. Gallbladder and bile ducts: Normal. No calcified stones. No ductal dilation. Pancreas: Normal. No ductal dilation. Spleen: Normal. No splenomegaly. Adrenals: Normal. No mass. Kidneys and ureters: Normal. No hydronephrosis. Stomach and bowel: Diffuse dilated loops of small bowel consistent with small-bowel obstruction. Small bowel measures up to 5.8 cm in diameter. Transition point in the left lower quadrant. Obstruction secondary to the ventral abdominal hernia. Distal small bowel loops are decompressed. Copious stool in the colon. Colon is relatively decompressed. Appendix: The appendix is not seen. However, there is no evidence of appendicitis. Intraperitoneal space: Small fluid in the hernia sac. No free air. Vasculature: No abdominal aortic aneurysm. Mild atherosclerotic disease. Lymph nodes: Unremarkable. No enlarged lymph nodes. Bladder: Unremarkable as visualized. Reproductive: Enlarged lobulated uterus. Partially calcified fibroid in the anterior wall of the uterus measuring 3.1 x 4.2 cm. Bones/joints: Mild degenerative spine. No acute fracture. Soft tissues: Large ventral abdominal hernia. Hernia contains transverse colon and multiple loops of small bowel and fluid. There is also thick-walled loculated collection in the right aspect of the hernia sac measuring 3.8 x 7.9 x 12.2 cm. IMPRESSION: 1. Findings consistent with complete small bowel obstruction secondary to large ventral abdominal hernia. Obstruction appears more severe than prior. 2. There is also thick-walled loculated collection in the right aspect of the hernia sac. Unchanged from prior. 3. Additional findings as described. Electronically signed by: Patria Child On 05/29/2019 02:21:09 AM
[2019-05-29 02:45] VITALS: BP 151/88
== END 2019-05-29 02:57 | disposition left against medical advice (07) ==
LOC: EDBD 23:57 → M ED 23:57
DX: K56.609 Unspecified intestinal obstruction, unspecified as to partial versus complete obstruction (principal); K43.6 Other and unspecified ventral hernia with obstruction, without gangrene; Z87.19 Personal history of other diseases of the digestive system; F17.200 Nicotine dependence, unspecified, uncomplicated; Z91.018 Allergy to other foods; Z91.013 Allergy to seafood
CPT/HCPCS: 36415; 74177; 80048; 80076; 83690; 85025; 96374; 96375; 99284; J1885; J2270; J2405; Q9967

== ENCOUNTER 2019-07-10 20:24 | Inpatient (IN) | payer MEDICARE, MEDICAID ==
[~2019-07-10] VITALS: Ht 157.5 cm; Wt 100.1 kg
[~2019-07-10 20:24] MED LIST changes: -METF-791 PO; +METF-838 PO
[2019-07-10] MEDS ORDERED: HumaLOG INSULIN (NovoLOG) PER UNIT SC SCH (21:00)
[2019-07-10] MEDS ORDERED: diphenhydrAMINE 50MG/ML VIAL (J1200) IV STA (21:07)
[2019-07-10 21:14] LABS: BASO # 0.1 10^3/uL (0.0-0.2); BASO % 0.9 % (0.0-1.0); EOS # 0.5 10^3/uL (0.0-0.5); EOS % 4.2 % (0.0-3.0); HEMATOCRIT 41.2 % (36.0-47.0); HEMOGLOBIN 13.1 g/dl (12.0-15.5); LYMPH # 2.5 10^3/uL (1.5-5.0); LYMPH % 22.3 % (24.0-44.0); MEAN CORPUSCULAR HEMOGLOBIN 25.9 pg (27.0-33.0); MEAN CORPUSCULAR HGB CONC 31.8 g/dl (32.0-36.5); MEAN CORPUSCULAR VOLUME 81.6 fl (80.0-96.0); MONO # 0.4 10^3/uL (0.0-0.8); MONO % 3.5 % (0.0-5.0); NEUTROPHILS # 7.8 10^3/uL (1.5-8.5); NEUTROPHILS % 68.7 % (36.0-66.0); PLATELET COUNT, AUTOMATED 451 10^3/uL (150-450); RED BLOOD COUNT 5.05 10^6/uL (4.00-5.40); WHITE BLOOD COUNT 11.3 10^3/uL (4.0-10.0)
[2019-07-10] MEDS ORDERED: METOCLOPRAMIDE INJ 10MG/2ML VIAL (J2765 PER 1) IV ONE (21:15)
[2019-07-10] MEDS ORDERED: NS 1,000 ML IV ONE (21:15)
[2019-07-10 21:18] LABS: INR 0.94; PARTIAL THROMBOPLASTIN TIME 31.6 SECONDS (25.0-38.4); PROTHROMBIN TIME 12.3 SECONDS (11.8-14.0)
[2019-07-10 21:25] LABS: ALBUMIN 3.5 GM/DL (3.2-5.2); ALT/SGPT 18 U/L (12-78); BILIRUBIN,DIRECT < 0.1 MG/DL (0.0-0.2); BILIRUBIN,TOTAL 0.5 MG/DL (0.2-1.0); BLOOD UREA NITROGEN 17 MG/DL (7-18); CARBON DIOXIDE LEVEL 22 MEQ/L (21-32); CHLORIDE LEVEL 102 MEQ/L (98-107); CREATININE FOR GFR 0.58 MG/DL (0.55-1.30); GLOMERULAR FILTRATION RATE > 60.0 (>58); GLUCOSE, FASTING 324 MG/DL (70-100); LIPASE 174 U/L (73-393); SODIUM LEVEL 137 MEQ/L (136-145); TOTAL PROTEIN 7.5 GM/DL (6.4-8.2)
[2019-07-10] MEDS: GASTROGRAFIN SOLUTION 30ML PO SCH ×2 (22:00→22:46)
[2019-07-10] MEDS ORDERED: ISOVUE-370 76% 100ML VIAL As Ordered ONE (22:15)
[2019-07-11] VITALS (7 sets, daily range): BP systolic 118–144; BP diastolic 72–91
--- NOTE | 2019-07-11 | REPVR ---
PROCEDURE INFORMATION: Exam: CT Abdomen And Pelvis With Contrast Exam date and time: 07/10/2019 9:07 PM Age: 43 years old Clinical indication: Abdominal pain; Generalized; Additional info: Eval intestinal obstruction TECHNIQUE: Imaging protocol: Computed tomography of the abdomen and pelvis with intravenous contrast. Radiation optimization: All CT scans at this facility use at least one of these dose optimization techniques: automated exposure control; mA and/or kV adjustment per patient size (includes targeted exams where dose is matched to clinical indication); or iterative reconstruction. Contrast material: ISO; Contrast volume: 100 ml; Contrast route: AC; Other contrast: Oral, ggraphin, 300; COMPARISON: CT ABD/PEL W/IV CONTRAST ONLY 05/29/2019 1:56 AM FINDINGS: Liver: Normal. No mass. Gallbladder and bile ducts: Normal. No calcified stones. No ductal dilation. Pancreas: Normal. No ductal dilation. Spleen: Normal. No splenomegaly. Adrenals: Normal. No mass. Kidneys and ureters: Normal. No hydronephrosis. Stomach and bowel: Small oral contrast in the stomach. Multiple dilated loops of small bowel. Dilated small bowel measures 5.5 cm in diameter. Transition point in the abdominal wall hernia sac. Distal small bowel loops are decompressed. Colon is decompressed. Appendix: The appendix is not seen. However, there is no evidence of appendicitis. Intraperitoneal space: Stranding of the fat in the lower ventral abdomen. No free air. No significant fluid collection. Vasculature: Mild atherosclerotic disease. No aortic aneurysm. Lymph nodes: Unremarkable. No enlarged lymph nodes. Bladder: Unremarkable as visualized. Reproductive: Lobulated uterus consistent with fibroids. Partially calcified fibroid in the fundus of the uterus. Bones/joints: Mild degenerative spine. No acute fracture. Soft tissues: Large lower midline abdominal hernia containing thickened small bowel and colon, the and fluid. Thick-walled collection in the ventral abdominal wall in the medial aspect of the hernia measuring 3.7 x 7.9 x 12.7 cm. IMPRESSION: 1. Large lower midline abdominal hernia containing thickened small bowel and fluid. Unchanged from prior. 2. Findings consistent with complete small bowel obstruction secondary to the hernia. Unchanged from prior. 3. Thick-walled collection in the ventral abdominal wall in the medial aspect of the hernia. 4. Additional findings as described. Electronically signed by: Patria Child On 07/11/2019 00:00:10 AM
[2019-07-11] MEDS ORDERED: GLUCAGON INJ 1MG VIAL SC PRN (00:30)
[2019-07-11] MEDS ORDERED: GLUCOSE 4GM CHEW TABLET PO PRN (00:30)
[2019-07-11] MEDS ORDERED: DEXTROSE 50% 50 ML SYRINGE IV PRN (00:30)
[2019-07-11] MEDS ORDERED: IBUP-1764 PO (01:02)
[2019-07-11] MEDS: ONDANSETRON 4MG/2ML VIAL IV PRN ×5 (01:08→23:42)
[2019-07-11] MEDS: NS 1,000 ML IV SCH ×4 (01:08→19:38)
[2019-07-11] MEDS ORDERED: HALOPERIDOL 5MG/ML VIAL (J1630 PER 1) IV ONE (01:15)
[2019-07-11] MEDS ORDERED: ACETAMINOPHEN *IV* 1,000 MG in IV 1 EA IV PRN (02:45)
[2019-07-11] MEDS: MORPHINE 4 MG/ML 1ML VIAL/SYRINGE (J2270) IV PRN ×6 (03:03→23:42)
--- NOTE | 2019-07-11 04:22 | HPEPDOC ---
[facility] Medical History & Physical Date of Admission July 11, 2019 Date of Service: July 11, 2019 Attending Physician: ZAIRA JIMENEZ MD History and Physical TIME OF SERVICE: 250AM CHIEF COMPLAINT: abdominal pain HISTORY OF PRESENT ILLNESS: This is a 43 yr old F who presents w c/o 7/10 right sided cramping abdominal pain which previously occurred 3 or 4 times with SBOs. Based on our records she had surgery for incarcerated ventral hernias in 2013 and 2016. She is also c/o of vomiting, chills and fevers. CT scan confirmed the presence of a ventral hernia; Dr. Infante has been consulted. The patient had an NG tube placed in the ER but it was displaced when she vomited. REVIEW OF SYSTEMS: 12 point review of systems negative except as listed in HPI PAST MEDICAL/ SURGICAL HISTORY: NICA BIPAP settings 20/01 Hypothyroidism Class 4 Obesity Tonsillectomy C section x1 Abortions x5 PTSD Bipolar disorder Hx of MDD with suicidal ideation requiring hospitalizations in the past Incarcerated ventral hernia repair 2013 & 2016 Elective recurrent hernia repair 2014 SOCIAL HISTORY: + Tobacco Hx of THC and opiate use has 1 son who is in her mothers custody FAMILY HISTORY: Asthma Cervical CA Breast CA ALLERGIES: Please see below. HOME MEDICATIONS: Please see below. PHYSICAL EXAMINATION: Vital Signs Date Time Temp Pulse Resp B/P (MAP) Pulse Ox O2 Delivery O2 Flow Rate FiO2 07/10/19 20:34 216/115 (148) 07/10/19 20:36 96.8 102 18 96 Room Air GENERAL APPEARANCE: anxious HEENT: NCAT CARDIOVASCULAR: RRR/NMRG LUNGS: CTAB on RA ABDOMEN: obese /soft / she doesnt grimace w palpation NEUROLOGICAL: CN 2-12 grossly intact /speech not dysarthric PSYCHIATRIC: A& Ox 3 LABORATORY DATA: Immature Granulocyte % (Auto) 0.4, Neutrophils (%) (Auto) 68.7H, Lymphocytes (%) (Auto) 22.3L, Monocytes (%) (Auto) 3.5, Eosinophils (%) (Auto) 4.2H, Basophils (%) (Auto) 0.9, Neutrophils # (Auto) 7.8, Lymphocytes # (Auto) 2.5, Monocytes # (Auto) 0.4, Eosinophils # (Auto) 0.5, Basophils # (Auto) 0.1, Nucleated Red Blood Cells % (auto) 0.0, Prothrombin Time 12.3, Prothromb Time International Ra joseph 0.94, Activated Partial Thromboplast Time 31.6, Anion Gap 13, Glomerular Filtration Rate > 60.0, Lactic Acid Level 1.7, Calcium Level 9.0, Total Bilirubin 0.5, Direct Bilirubin < 0.1, Aspartate Amino Transf (AST/SGOT) 6L, Alanine Aminotransferase (ALT/SGPT) 18, Alkaline Phosphatase 107, Total Protein 7.5, Albumin 3.5, Albumin/Globulin Ratio 0.88L, Lipase 174 Bedside Glucose (Misc Panel) 327H IMAGING: CT abdomen and pelvis IMPRESSION: 1. Large lower midline abdominal hernia containing thickened small bowel and fluid. Unchanged from prior. 2. Findings consistent with complete small bowel obstruction secondary to the hernia. Unchanged from prior. 3. Thick-walled collection in the ventral abdominal wall in the medial aspect of the hernia.4. Additional findings as described MICROBIOLOGY: Please see below. ASSESSMENT: is a 43 yr old w a PMH of NICA, hx of Hypothyroidism, DM, Class 4 obesity, & Bipolar disorder who is admitted for recurrent SBO. PLAN: 1. SBO admit to medical floor / NPO / NG to suction / Zofran, Ofrimev and morphine for nausea and pain / replete lytes PRN /f/u 2. Leucocytosis likely reactive f/u CBC and vitals 3. DM f/u accuchecks, A1C, hypoglycemia protocol w SSS 4. Hx of hypothyroidism ? f/u TSH 5. Class 3 obesity w co-existing DM and NICA complicates care. DVT Px w SCDs Dispo: home after more than 2 midnights stay Home Medications Scheduled PRN Ibuprofen (Ibuprofen) 200 Mg Tablet, 400 MG PO Q6H PRN for PAIN Allergies Coded Allergies: Octavia (Verified Allergy, Intermediate, RASH, 01/09/19) SEAFOOD (Verified Allergy, Intermediate, RASH, 01/09/19) shellfish derived (Verified Allergy, Intermediate, hives, 01/09/19) A-FIB/CHADSVASC A-FIB History Current/History of A-Fib/PAF?: No Current PO Anticoag Therapy: No ZAIRA JIMENEZ MD July 11, 2019 04:22
[2019-07-11 06:24] LABS: HEMATOCRIT 40.7 % (36.0-47.0); HEMOGLOBIN 13.6 g/dl (12.0-15.5); MEAN CORPUSCULAR HEMOGLOBIN 26.8 pg (27.0-33.0); MEAN CORPUSCULAR HGB CONC 33.4 g/dl (32.0-36.5); MEAN CORPUSCULAR VOLUME 80.3 fl (80.0-96.0); PLATELET COUNT, AUTOMATED 392 10^3/uL (150-450); RED BLOOD COUNT 5.07 10^6/uL (4.00-5.40); WHITE BLOOD COUNT 21.2 10^3/uL (4.0-10.0)
[2019-07-11 07:03] LABS: BLOOD UREA NITROGEN 14 MG/DL (7-18); CARBON DIOXIDE LEVEL 23 MEQ/L (21-32); CHLORIDE LEVEL 103 MEQ/L (98-107); GLOMERULAR FILTRATION RATE > 60.0 (>58); GLUCOSE, FASTING 350 MG/DL (70-100); POTASSIUM SERUM 3.7 MEQ/L (3.5-5.1); SODIUM LEVEL 136 MEQ/L (136-145)
[2019-07-11] MEDS ORDERED: HumaLOG INSULIN (NovoLOG) PER UNIT SC SCH (07:30)
[2019-07-11] MEDS: LEVEMIR (INSULIN DETEMIR) 1 UNITS/0.01ML SC SCH (07:57)
[2019-07-11] MEDS ORDERED: LEVEMIR (INSULIN DETEMIR) 1 UNITS/0.01ML SC SCH (09:00)
--- NOTE | 2019-07-11 09:40 | REP ---
ACUTE ABDOMINAL SERIES: Four views. HISTORY: Small bowel obstruction. Comparison chest x-ray May 10, 2019. Comparison abdominal CT study July 10, 2019. FINDINGS: Upright chest radiograph demonstrates a nasogastric tube which courses through the stomach into the region of the duodenum. There are areas of increased parenchymal opacity in the right lower lobe of the lung consistent with discoid atelectasis and/or developing infiltrate. No free subdiaphragmatic air is seen. Supine and erect views of the abdomen show a few persistent moderately dilated small bowel loops in the central abdomen which display air fluid levels on the upright radiograph. There is some air and stool in the colon. A large uterine myomatous calcification is seen to the right of midline in the pelvis. This measures 5.9 cm in greatest diameter. There is no visible free air. IMPRESSION: Small bowel obstruction pattern persists slightly improved post NG tube placement. No evidence of free air. Electronically Signed by Diomedes Godfrey MD 07/11/2019 12:45 P
[2019-07-11] MEDS: HumaLOG INSULIN (NovoLOG) PER UNIT SC SCH ×3 (12:07→23:42)
--- NOTE | 2019-07-11 17:54 | IPNPDOC ---
Date Seen The patient was seen on 07/11/19. Progress Note SUBJECTIVE: Repeat abdominal XR showed small bowel obstruction pattern persists slightly improved post NG tube placement. No evidence of free air. Will TB with surgery to see if plan is surgery or waiting to see what happens with NG tube. Pain controlled. BS uncontrolled, added levemir QAM in addition to ISS. VITAL SIGNS: Please see below PHYSICAL EXAMINATION: GENERAL APPEARANCE: sitting up in no acute distress, AAOx3 HEENT: NCAT, NG tube in place CARDIOVASCULAR: RRR/NMRG LUNGS: CTAB on RA ABDOMEN: obese /soft / no pain on palpation, decreased BS in 4 quadrants. NEUROLOGICAL: CN 2-12 grossly intact /speech not dysarthric PSYCHIATRIC: Affect flat LABORATORY DATA: Please see below. CURRENT MEDICATIONS: Please see below IMAGING: CT abdomen and pelvis . Large lower midline abdominal hernia containing thickened small bowel and fluid. Unchanged from prior. 2. Findings consistent with complete small bowel obstruction secondary to the hernia. Unchanged from prior. 3. Thick-walled collection in the ventral abdominal wall in the medial aspect of the hernia.4. Additional findings as described Repeat Abd XR: Small bowel obstruction pattern persists slightly improved post NG tube placement. No evidence of free air. ASSESSMENT: 43 y/o F admitted for recurrent SBO. PLAN: 1. SBO, recurrent. C/w NPO status/ NG to suction / Zofran/ pain control / r eplete lytes PRN /f/u . 2. Leucocytosis likely reactive to SBO. F/u daily CBC and vitals 3. DM type II. Uncontrolled blood sugars, added levemir 10 units QAM. C/w accuchecks, hypoglycemia protocol w ISS 4. Hx of hypothyroidism. TSH wnl. 5. DVT Px w SCDs, enoxaparin SC daily. DISPOSITION: Currently inpatient status. Plan is not yet decided on surgery, Dr. Infante following closely. Plan is home ultimately when medically improved. VS, I&O, 24H, Fishbone Vital Signs/I&O Vital Signs Date Time Temp Pulse Resp B/P (MAP) Pulse Ox O2 Delivery O2 Flow Rate FiO2 07/11/19 16:00 98.5 88 18 129/91 (104) 93 Room Air I&O- Last 24 Hours up to 6 AM 07/11/19 06:00 Intake Total 1100 ml Output Total 1200 ml Balance -100 ml Laboratory Data 24H LABS Laboratory Tests 2 07/10/19 20:36: Immature Granulocyte % (Auto) 0.4, Neutrophils (%) (Auto) 68.7H, Lymphocytes (%) (Auto) 22.3L, Monocytes (%) (Auto) 3.5, Eosinophils (%) (Auto) 4.2H, Basophils (%) (Auto) 0.9, Neutrophils # (Auto) 7.8, Lymphocytes # (Auto) 2.5, Monocytes # (Auto) 0.4, Eosinophils # (Auto) 0.5, Basophils # (Auto) 0.1, Nucleated Red Blood Cells % (auto) 0.0, Prothrombin Time 12.3, Prothromb Time International Ratio 0.94, Activated Partial Thromboplast Time 31.6, Anion Gap 13, Glomerular Filtration Rate > 60.0, Lactic Acid Level 1.7, Calcium Level 9.0, Total Bilir ubin 0.5, Direct Bilirubin < 0.1, Aspartate Amino Transf (AST/SGOT) 6L, Alanine Aminotransferase (ALT/SGPT) 18, Alkaline Phosphatase 107, Total Protein 7.5, Albumin 3.5, Albumin/Globulin Ratio 0.88L, Lipase 174 07/11/19 00:55: Bedside Glucose (Misc Panel) 327H 07/11/19 06:06: Nucleated Red Blood Cells % (auto) 0.0, Anion Gap 10, Glomerular Filtration Rate > 60.0, Calcium Level 9.0, Thyroid Stimulating Hormone (TSH) 1.470 07/11/19 11:41: Bedside Glucose (Misc Panel) 186H CBC/BMP Laboratory Tests 07/10/19 20:36 07/11/19 06:06 Current Medications Current Medications Medications (Trade) Dose Ordered Sig/Mike Route PRN Reason Start Time Stop Time Status Last Admin Dose Admin Acetaminophen 1000 mg/IV Miscellaneous Supplies 100 ml @ 400 mls/hr Q8HP PRN IV 1-5 07/11/19 02:45 07/14/19 02:40 UNV Dextrose (Dextrose 50%) 25 ml ASDIRECTED PRN IV SEE LABEL COMMENTS 07/11/19 00:30 Diatrizoate Meglum/ Diatrizoate Sod (Gastrografin) 10 ml Q30M PO 07/10/19 21:45 07/10/19 22:16 DC 07/10/19 22:46 Diphenhydramine HCl (Benadryl) 50 mg STAT STAT IV 07/10/19 21:07 07/10/19 21:09 DC 07/10/19 21:17 Glucagon (Glucagon) 1 mg ASDIRECTED PRN SC SEE LABEL COMMENTS 07/11/19 00:30 Glucose (Glucose) 16 GM ASDIRECTED PRN PO SEE LABEL COMMENTS 07/11/19 00:30 Home Med (Med Rec Complete!) ASDIRECTED XX 07/11/19 01:15 07/11/19 01:09 DC Insulin Detemir (Levemir Insulin) 8 units QAM SC 07/11/19 09:00 07/11/19 07:51 DC Insulin Detemir (Levemir Insulin) 10 units QAM SC 07/11/19 09:00 07/11/19 07:57 Insulin Human Lispro (HumaLOG INSULIN) SEE PROTOCOL TABLE Q6H SC 07/11/19 12:00 07/11/19 12:07 Insulin Human Lispro (HumaLOG INSULIN) See Protocol Table AC SC 07/11/19 07:30 07/11/19 08:40 DC 07/11/19 07:57 Insulin Human Lispro (HumaLOG INSULIN) See Protocol Table QHS SC 07/10/19 21:00 07/11/19 08:40 DC 07/11/19 01:08 Morphine Sulfate (Morphine Sulfate Inj) 3 mg Q2HP PRN IV pain 6-10 07/11/19 02:45 07/11/19 14:51 Ondansetron HCl (ZOFRAN INJection) 8 mg Q4HP PRN IV NAUSEA OR VOMITING 07/11/19 00:30 07/11/19 14:14 Sodium Chloride 1,000 ml @ 150 mls/hr Q6H40M IV 07/11/19 00:29 07/11/19 01:08 Allergies Coded Allergies: Amarjit (Verified Allergy, Intermediate, RASH, 01/09/19) SEAFOOD (Verified Allergy, Intermediate, RASH, 01/09/19) shellfish derived (Verified Allergy, Intermediate, hives, 01/09/19) Cesilia Amezcua MD July 11, 2019 17:54
[2019-07-11] MEDS ORDERED: ENOXAPARIN 40MG/0.4ML SYRINGE (J1650 PER 10MG) SC SCH (21:00)
--- NOTE | 2019-07-11 22:59 | CR ---
DATE OF CONSULTATION: 07/11/2019 Patient was admitted overnight for a small bowel obstruction. She has had several episodes of small bowel obstructions, has had two repairs of a midline incisional hernia in the past and essentially developed some significant crampy abdominal pain with nausea, vomiting and came to the emergency room because of this. A small bowel obstruction was noted with probable transition within the hernia itself and had an nasogastric (NG) tube placed overnight and is feeling better this morning when I am seeing her. Her past medical history is significant for a history of obstructive sleep apnea with bilevel positive airway pressure (BiPAP), history of hypothyroidism, history of morbid obesity, history of tonsillectomy, history of section (), history of post-traumatic stress disorder (PTSD), history of , history of bipolar disorder, history of incarcerated ventral hernia repair in 2013 and 2016, history of elective recurrent hernia repair in 2014. Medications include ibuprofen. PHYSICAL EXAM: Reveals an obese white female who looks stated age. HEENT is unremarkable. Neck: Supple without adenopathy. Lungs are clear. Heart is regular. Abdomen is softly distended. She does have a hernia along the midline, and this is moderately distended. It is not significantly tender. However, I placed her in Trendelenburg and gently applied some pressure to the hernia itself and eventually I was able to reduce this hernia. She noticed significant improvement with her abdominal wall distension and felt better once this was reduced. IMPRESSION AND PLAN: The patient has a large lower midline abdominal wall hernia, and at this point, it appears clinically she was doing better at the beginning of our visit, which I anticipate she was able to decompress her abdomen to some extent to allow this hernia to be reduced, it reduced quite nicely. And at this point, progression of her diet and activity level, etc. is dependent on how she progresses clinically. But I anticipate given her rapid improvement/reduction of this hernia, that if she has a bowel movement and her x-rays show significant improvement that she could have her NG tube be discontinued and started on a clear liquid diet. Given that she has had multiple episodes of partial obstruction in the past, I anticipate this should resolve, and I would recommend that she pursue reevaluation/hernia repair electively as an outpatient once she is resolved. She has had a history of signing out against medical advice (AMA), and I would not be surprised if she has improvement/resolution of her symptoms that she decides to pursue this as an outpatient. ADDENDUM: KUB upright exam has been performed and indeed the patient has still some dilated loops of small bowel, but not any significant amount compared to previous studies, and she has air and stool within her colon, all suggestive of improvement of bowel obstruction picture. I would not be surprised if some of the dilated loops of small bowel are more chronically partially obstructed, which may be something that we see on chronic x-rays. But in any case, at this point, given the improvement, I would recommend that she stay nothing by mouth (n.p.o.) at this point with an NG tube in place unless she starts having bowel movements and her abdominal pain completely resolves.
[2019-07-12] MEDS: MORPHINE 4 MG/ML 1ML VIAL/SYRINGE (J2270) IV PRN ×4 (01:57→12:29)
[2019-07-12] MEDS: NS 1,000 ML IV SCH ×2 (01:57→09:33)
[2019-07-12 02:00] VITALS: BP 149/93
[2019-07-12 06:00] VITALS: BP 149/79
[2019-07-12] MEDS: ONDANSETRON 4MG/2ML VIAL IV PRN ×2 (06:06→09:48)
[2019-07-12] MEDS: HumaLOG INSULIN (NovoLOG) PER UNIT SC SCH ×2 (06:07→12:28)
[2019-07-12 06:34] LABS: HEMATOCRIT 33.9 % (36.0-47.0); MEAN CORPUSCULAR HEMOGLOBIN 26.6 pg (27.0-33.0); MEAN CORPUSCULAR HGB CONC 31.9 g/dl (32.0-36.5); MEAN CORPUSCULAR VOLUME 83.5 fl (80.0-96.0); PLATELET COUNT, AUTOMATED 352 10^3/uL (150-450); RED BLOOD COUNT 4.06 10^6/uL (4.00-5.40); WHITE BLOOD COUNT 9.1 10^3/uL (4.0-10.0)
[2019-07-12 06:48] LABS: HEMOGLOBIN 10.8 g/dl (12.0-15.5)
[2019-07-12 07:02] LABS: BLOOD UREA NITROGEN 13 MG/DL (7-18); CALCIUM LEVEL 7.4 MG/DL (8.5-10.1); CARBON DIOXIDE LEVEL 27 MEQ/L (21-32); CHLORIDE LEVEL 111 MEQ/L (98-107); CREATININE FOR GFR 0.42 MG/DL (0.55-1.30); GLOMERULAR FILTRATION RATE > 60.0 (>58); GLUCOSE, FASTING 133 MG/DL (70-100); MAGNESIUM LEVEL 1.5 MG/DL (1.8-2.4); PHOSPHORUS LEVEL 3.2 MG/DL (2.5-4.9); POTASSIUM SERUM 3.3 MEQ/L (3.5-5.1); SODIUM LEVEL 145 MEQ/L (136-145)
[2019-07-12] MEDS: LEVEMIR (INSULIN DETEMIR) 1 UNITS/0.01ML SC SCH (07:57)
[2019-07-12] MEDS: KCL 10MEQ/100ML SWI (KRUN) 10 MEQ in IV 1 EA IV SCH ×4 (07:58→13:28)
--- NOTE | 2019-07-12 09:40 | IPNPDOC ---
Text Note Date of Service The patient was seen on 07/12/19. NOTE Patient feels mildly better, still with pain/discomfort needing narcotics. Rep orts passing some flatus, no bms yet. VS: afebrile, nontachycardic I/O: NGT 1100 yesterday, 1500mL so far On exam over all comfortable. She was able to get off the wheelchair to the bed herself without any significant increase in discomfort. abdomen: prominent protuberance at the lower midline where the hernia is. The dimensions of the hernia are hard to characterize with just palpation but there are areas on the to left where it feels hardeened, probably old folded mesh, The hernia seems to be at least partially reducible and not fully incarcerated. Minimal discomfort during the manipulation Small bowel obstruction related to a large incisional hernia on her midabdomen, recurrent. This has complicated cardiac exacerbated by patient's psychiatric/psychologic disposition as well as noncompliance and also morbid obesity. She has failed repair multiple times with different meshes within the abdomen. Her Xray today shows left over small bowel distention at the midabdomen most likely what is coming out to the hernia defect but a more promnent column of air in the desceding colon to the rectum signfying most likely only partial obstruction Given complexity of the hernia and the bowel obstruction, I dont think both can be managed in a single surgery. Ideally you let the obstruction pass and come up with a plan to tackle her large complex hernia with abdominal wall reconstructi on. I spoke to her about doing at least a lysis of adhesion preferrably laparoscopic during this admission which would also allow for evaluation of the hernia dimensions for potential interval repair/reconstruction. Would need to speak with Dr. Cleaning regarding this. VS,[place], I+O VS, [place], I+O Laboratory Tests 07/12/19 05:58 Vital Signs Date Time Temp Pulse Resp B/P (MAP) Pulse Ox O2 Delivery O2 Flow Rate FiO2 07/12/19 06:16 16 07/12/19 06:00 97.6 68 149/79 (102) 92 Room Air I&O- Last 24 Hours up to 6 AM 07/12/19 06:00 Intake Total 970 ml Output Total 1600 ml Balance -630 ml NIGHAT LAM MD July 12, 2019 08:52
[2019-07-12 10:00] VITALS: BP 148/94
--- NOTE | 2019-07-12 11:29 | REP ---
REASON: Followup. Mild gaseous distention of multiple small bowel loops has diminished somewhat. There is increased gas in the rectosigmoid region. The tip of the nasogastric tube is unchanged. There is no free air. IMPRESSION: There has been some improvement. Electronically Signed by Sid Holden DO 07/12/2019 12:58 P
[2019-07-12 14:00] VITALS: BP 147/89
--- NOTE | 2019-07-12 17:02 | DS.PDOC ---
Discharge Summary General Date of Admission July 11, 2019 at 00:29 Date of Discharge 07/12/19 Attending Physician: Cesilia Amezcua MD Discharge Summary HISTORY OF PRESENT ILLNESS: This patient is a 43 yr old F who presents w c/o 7/10 right sided cramping abdominal pain which previously occurred 3 or 4 times with SBOs. Based on our records she had surgery for incarcerated ventral hernias in 2013 and 2016. She is also c/o of vomiting, chills and fevers. CT scan confirmed the presence of a ventral hernia; Dr. Infante was consulted. The patient had an NG tube placed in the ER but it was displaced when she vomited. HOSPITAL COURSE: The patient was started on IV fluids, pain control, continued with NG tube to intermittent suction. Repeat abdominal x-ray on 07/11/2027 showed small bowel obstruction pattern persists slightly improved post NG tube placement. No evidence of free air. Over the first 24 hours, NG tube put out 1100 mL, a significant amount. Blood sugar was elevated in the 300s over the first 24 hours and she was started on Levemir 10 units subcutaneous in the morning. Blood sugars improved significantly. On 07/12/2019 NG tube had put out 1500mL by mid- day. Surgery had said that given complexity of her hernia and the bowel obstruction, he didn't think both can be managed in a single surgery. Ideally you let the obstruction pass and come up with a plan to tackle her large complex hernia with abdominal wall reconstruction. Dr. Sanchez ([facility]) spoke to her about doing at least a lysis of adhesion during this admission which would also allow for evaluation of the hernia dimensions for potential interval repair/reconstruction. She initially agreed but then later in the day on 07/12/19 the patient requested to leave. She stated that she felt much better, had decreased abdominal distention and that she was passing gas. She still did not have a bowel movement. It was explained that the patient could not be safely discharged at this time and that if she left it would be AGAINST MEDICAL ADVICE. The risks of leaving AGAINST MEDICAL ADVICE were explained in detail at the bedside. Nurse was present in the room at the time. She stated that she needs to get home to feed her dog and that she did not have anyone to help her do this. Despite attempting to persuade her to stay, the patient left AGAINST MEDICAL ADVICE anyway. PAST MEDICAL/ SURGICAL HISTORY: NICA BIPAP settings 20/01 Hypothyroidism Class 4 Obesity Tonsillectomy C section x1 Abortions x5 PTSD Bipolar disorder Hx of MDD with suicidal ideation requiring hospitalizations in the past Incarcerated ventral hernia repair 2013 & 2017 Elective recurrent hernia repair 2015 Recurrent SBO SOCIAL HISTORY: + Tobacco Hx of THC and opiate use has 1 son who is in her mothers custody FAMILY HISTORY: Asthma Cervical CA Breast CA ALLERGIES: Please see below. PHYSICAL EXAMINATION: VS: Please see below GENERAL APPEARANCE: laying in bed in no acute distress, AAOx3 HEENT: NCAT, NG tube in place CARDIOVASCULAR: RRR/NMRG LUNGS: CTAB on RA ABDOMEN: obese /soft / no pain on palpation, hypoactive BS in 4 quadrants. NEUROLOGICAL: CN 2-12 grossly intact /speech not dysarthric PSYCHIATRIC: Affect flat LABORATORY DATA: Please see below. IMAGING: CT abdomen and pelvis . Large lower midline abdominal hernia containing thickened small bowel and fluid. Unchanged from prior. 2. Findings consistent with complete small bowel obstruction secondary to the hernia. Unchanged from prior. 3. Thick-walled collection in the ventral abdominal wall in the medial aspect of the hernia.4. Additional findings as described Repeat Abd XR 07/11/19: Small bowel obstruction pattern persists slightly improved post NG tube placement. No evidence of free air ASSESSMENT: 43 y/o F admitted for recurrent SBO leaving AGAINST MEDICAL ADVICE. DIAGNOSES: 1. Small bowel obstruction likely 2/2 to large incisional hernia, recurrent. 2. DM type II 3. Hypothyroidism 4. Morbid obesity DISPOSITION: Despite attempting to persuade to stay, the patient left AGAINST MEDICAL ADVICE in the afternoon on 07/12/2019. TIME SPENT ON DISCHARGE: 35 minutes. Vital Signs/I&Os Vital Signs Date Time Temp Pulse Resp B/P (MAP) Pulse Ox O2 Delivery O2 Flow Rate FiO2 07/12/19 14:00 97.4 65 18 147/89 (108) 94 Room Air I&O- Last 24 Hours up to 6 AM 07/12/19 06:00 Intake Total 970 ml Output Total 1600 ml Balance -630 ml Laboratory Data Labs 24H Laboratory Tests 2 07/11/19 17:48: Bedside Glucose (Misc Panel) 135H 07/11/19 23:26: Bedside Glucose (Misc Panel) 152H 07/12/19 05:58: Nucleated Red Blood Cells % (auto) 0.0, Anion Gap 7L, Glomerular Filtration Rate > 60.0, Calcium Level 7.4#L, Phosphorus Level 3.2, Magnesium Level 1.5L 07/12/19 06:00: Bedside Glucose (Misc Panel) 134H 07/12/19 12:09: Bedside Glucose (Misc Panel) 117H CBC/BMP Laboratory Tests 07/12/19 05:58 FSBS Laboratory Tests Test 07/11/19 17:48 07/11/19 23:26 07/12/19 06:00 07/12/19 12:09 Range/Units Bedside Glucose (Misc Panel) 135 152 134 117 70-105 MG/DL Discharge Medications Scheduled PRN Ibuprofen (Ibuprofen) 200 Mg Tablet, 400 MG PO Q6H PRN for PAIN, (Reported) Allergies Coded Allergies: [place] (Verified Allergy, Intermediate, RASH, 01/09/19) SEAFOOD (Verified Allergy, Intermediate, RASH, 01/09/19) shellfish derived (Verified Allergy, Intermediate, hives, 01/09/19) Cesilia Amezcua MD July 12, 2019 17:02
== END 2019-07-12 16:45 | disposition left against medical advice (07) | DRG 394 ==
LOC: M ED 20:24 → M ED INP 07-11 00:29 → ENRESERV 07-11 01:21 → M MS5PR 07-11 02:36
PROVIDERS: ADMIT Internal Medicine; ATTEND Internal Medicine
DX: K43.6 Other and unspecified ventral hernia with obstruction, without gangrene (principal); Z68.41 Body mass index [BMI] 40.0-44.9, adult; E66.9 Obesity, unspecified; G47.33 Obstructive sleep apnea (adult) (pediatric); E03.9 Hypothyroidism, unspecified; F31.9 Bipolar disorder, unspecified; F43.10 Post-traumatic stress disorder, unspecified; F17.200 Nicotine dependence, unspecified, uncomplicated; Z91.018 Allergy to other foods; Z91.013 Allergy to seafood; D72.829 Elevated white blood cell count, unspecified; E11.9 Type 2 diabetes mellitus without complications

== ENCOUNTER 2019-07-26 18:10 | Emergency (ER) | payer MEDICARE, MEDICAID ==
[~2019-07-26] VITALS: Ht 157.5 cm; Wt 99.5 kg
[~2019-07-26 18:10] MED LIST changes: +IBUP-1764 PO
[2019-07-26 18:41] LABS: BASO # 0.1 10^3/uL (0.0-0.2); EOS # 0.5 10^3/uL (0.0-0.5); HEMATOCRIT 38.5 % (36.0-47.0); HEMOGLOBIN 12.9 g/dl (12.0-15.5); LYMPH # 2.2 10^3/uL (1.5-5.0); MEAN CORPUSCULAR HEMOGLOBIN 27.1 pg (27.0-33.0); MEAN CORPUSCULAR HGB CONC 33.5 g/dl (32.0-36.5); MEAN CORPUSCULAR VOLUME 80.9 fl (80.0-96.0); MONO # 0.5 10^3/uL (0.0-0.8); MONO % 4.3 % (0.0-5.0); NEUTROPHILS # 8.3 10^3/uL (1.5-8.5); NEUTROPHILS % 71.5 % (36.0-66.0); PLATELET COUNT, AUTOMATED 419 10^3/uL (150-450); RED BLOOD COUNT 4.76 10^6/uL (4.00-5.40); WHITE BLOOD COUNT 11.5 10^3/uL (4.0-10.0)
[2019-07-26 18:45] VITALS: BP 136/83
[2019-07-26] MEDS ORDERED: METOCLOPRAMIDE INJ 10MG/2ML VIAL (J2765 PER 1) IV ONE (18:45)
[2019-07-26 19:05] LABS: ALBUMIN 3.3 GM/DL (3.2-5.2); ALT/SGPT 16 U/L (12-78); BILIRUBIN,DIRECT 0.1 MG/DL (0.0-0.2); BILIRUBIN,TOTAL 0.5 MG/DL (0.2-1.0); BLOOD UREA NITROGEN 12 MG/DL (7-18); CARBON DIOXIDE LEVEL 26 MEQ/L (21-32); CHLORIDE LEVEL 103 MEQ/L (98-107); CREATININE FOR GFR 0.58 MG/DL (0.55-1.30); GLOMERULAR FILTRATION RATE > 60.0 (>58); GLUCOSE, FASTING 289 MG/DL (70-100); LIPASE 172 U/L (73-393); POTASSIUM SERUM 3.6 MEQ/L (3.5-5.1); SODIUM LEVEL 135 MEQ/L (136-145)
[2019-07-26 19:07] LABS: HCG, SERUM QUALITATIVE NEGATIVE (NEGATIVE)
--- NOTE | 2019-07-26 20:00 | REPVR ---
PROCEDURE INFORMATION: Exam: XR Abdomen, 1 View Exam date and time: 07/26/2019 6:41 PM Age: 43 years old Clinical indication: Abdominal pain; Additional info: Abdominal pain; R/O obstruction TECHNIQUE: Imaging protocol: XR of the abdomen. Views: Frontal supine view of the abdomen. 1 View. COMPARISON: CR Abdomen,Flat Plate KUB 07/12/2019 9:10 AM FINDINGS: Gastrointestinal tract: Moderate amount of stool seen throughout the colon. The rectosigmoid colon appears relatively decompressed containing only air. No abnormally dilated small bowel loops. Organs: Calcified uterine fibroids present. Bones/joints: Unremarkable. IMPRESSION: Moderate amount of stool seen in the colon. Rectosigmoid colon relatively decompressed. No abnormally dilated bowel loops Electronically signed by: Clara Colbert On 07/26/2019 20:00:20 PM
[2019-07-26] MEDS ORDERED: MIRALAX *UNIT DOSE* 17GM PACKET PO STA (20:27)
[2019-07-26] MEDS ORDERED: MIRA3350 PO (20:36)
[2019-07-26] MEDS ORDERED: REGL10TA6 PO (20:36)
== END 2019-07-26 20:48 | disposition home or self-care (01) ==
LOC: EDBD 18:10 → M ED 18:10
DX: K59.00 Constipation, unspecified (principal); E11.9 Type 2 diabetes mellitus without complications; G43.909 Migraine, unspecified, not intractable, without status migrainosus; F31.9 Bipolar disorder, unspecified; Z87.19 Personal history of other diseases of the digestive system; Z98.890 Other specified postprocedural states; F17.210 Nicotine dependence, cigarettes, uncomplicated; Z79.899 Other long term (current) drug therapy; Z91.013 Allergy to seafood; Z91.018 Allergy to other foods
CPT/HCPCS: 36415; 74018; 80048; 80076; 83690; 84703; 85025; 96374; 99284; J2765

== ENCOUNTER 2019-08-07 16:48 | Emergency (ER) | payer MEDICARE, MEDICAID ==
[~2019-08-07 16:48] MED LIST changes: -CLIN150C14 PO; +CLIN150C15 PO; +REGL10TA6 PO
[2019-08-07] MEDS ORDERED: METOCLOPRAMIDE INJ 10MG/2ML VIAL (J2765 PER 1) IV ONE (17:30)
[2019-08-07 17:45] LABS: BASO # 0.1 10^3/uL (0.0-0.2); BASO % 0.6 % (0.0-1.0); EOS # 0.4 10^3/uL (0.0-0.5); EOS % 4.1 % (0.0-3.0); HEMATOCRIT 37.3 % (36.0-47.0); HEMOGLOBIN 12.2 g/dl (12.0-15.5); LYMPH # 1.8 10^3/uL (1.5-5.0); LYMPH % 17.4 % (24.0-44.0); MEAN CORPUSCULAR HEMOGLOBIN 26.8 pg (27.0-33.0); MEAN CORPUSCULAR HGB CONC 32.7 g/dl (32.0-36.5); MEAN CORPUSCULAR VOLUME 81.8 fl (80.0-96.0); MONO # 0.5 10^3/uL (0.0-0.8); MONO % 5.1 % (0.0-5.0); NEUTROPHILS # 7.5 10^3/uL (1.5-8.5); NEUTROPHILS % 72.5 % (36.0-66.0); PLATELET COUNT, AUTOMATED 358 10^3/uL (150-450); RED BLOOD COUNT 4.56 10^6/uL (4.00-5.40); WHITE BLOOD COUNT 10.3 10^3/uL (4.0-10.0)
[2019-08-07] MEDS ORDERED: MORPHINE 4 MG/ML 1ML VIAL/SYRINGE (J2270) IV ONE (17:45)
[2019-08-07 18:15] LABS: ALBUMIN 3.1 GM/DL (3.2-5.2); ALT/SGPT 16 U/L (12-78); BILIRUBIN,DIRECT 0.1 MG/DL (0.0-0.2); BILIRUBIN,TOTAL 0.3 MG/DL (0.2-1.0); BLOOD UREA NITROGEN 14 MG/DL (7-18); CARBON DIOXIDE LEVEL 28 MEQ/L (21-32); CHLORIDE LEVEL 102 MEQ/L (98-107); CREATININE FOR GFR 0.63 MG/DL (0.55-1.30); GLOMERULAR FILTRATION RATE > 60.0 (>58); GLUCOSE, FASTING 339 MG/DL (70-100); LIPASE 160 U/L (73-393); POTASSIUM SERUM 3.8 MEQ/L (3.5-5.1); SODIUM LEVEL 136 MEQ/L (136-145); TOTAL PROTEIN 6.8 GM/DL (6.4-8.2)
[2019-08-07 18:35] LABS: HCG, SERUM QUALITATIVE NEGATIVE (NEGATIVE)
[2019-08-07 20:46] VITALS: BP 128/67
--- NOTE | 2019-08-08 00:21 | REP ---
ABDOMINAL SERIES: Supine and erect views of the abdomen demonstrate no evidence of free intraperitoneal air and no evidence of small bowel obstruction. Air is seen throughout the colon, which is not significantly dilated. Once again, there appears to be a calcified fibroid in the upper pelvis. An accompanying view of the chest demonstrates no acute infiltrate. The heart is normal in size. IMPRESSION: No evidence of free intraperitoneal air or obstruction. Electronically Signed by Braydon Olson MD 08/11/2019 09:33 P
== END 2019-08-07 20:51 | disposition home or self-care (01) ==
LOC: EDUNIT# 16:48 → EDBD 16:48 → M ED 16:48
DX: R10.9 Unspecified abdominal pain (principal); E03.8 Other specified hypothyroidism; F43.10 Post-traumatic stress disorder, unspecified; F31.9 Bipolar disorder, unspecified; E66.9 Obesity, unspecified; G47.33 Obstructive sleep apnea (adult) (pediatric); F17.210 Nicotine dependence, cigarettes, uncomplicated; Z98.890 Other specified postprocedural states; Z90.89 Acquired absence of other organs; Z91.013 Allergy to seafood; Z91.018 Allergy to other foods
CPT/HCPCS: 36415; 74021; 80048; 80076; 83690; 84703; 85025; 93041; 96374; 99285; J2765

== ENCOUNTER 2019-08-08 10:42 | Emergency (ER) | payer MEDICARE, MEDICAID ==
[~2019-08-08] VITALS: Ht 157.5 cm; Wt 100.0 kg
[~2019-08-08 10:42] MED LIST changes: +CLIN150C14 PO; -CLIN150C15 PO
[2019-08-08] MEDS ORDERED: METOCLOPRAMIDE INJ 10MG/2ML VIAL (J2765 PER 1) IV ONE (12:30)
[2019-08-08] MEDS ORDERED: NS 1,000 ML IV ONE (12:30)
[2019-08-08 12:48] LABS: BASO # 0.1 10^3/uL (0.0-0.2); BASO % 0.4 % (0.0-1.0); EOS # 0.3 10^3/uL (0.0-0.5); EOS % 2.2 % (0.0-3.0); HEMATOCRIT 42.3 % (36.0-47.0); HEMOGLOBIN 13.7 g/dl (12.0-15.5); LYMPH # 1.5 10^3/uL (1.5-5.0); MEAN CORPUSCULAR HEMOGLOBIN 26.2 pg (27.0-33.0); MEAN CORPUSCULAR HGB CONC 32.4 g/dl (32.0-36.5); MONO # 0.5 10^3/uL (0.0-0.8); MONO % 3.9 % (0.0-5.0); NEUTROPHILS # 11.4 10^3/uL (1.5-8.5); NEUTROPHILS % 82.1 % (36.0-66.0); PLATELET COUNT, AUTOMATED 403 10^3/uL (150-450); RED BLOOD COUNT 5.22 10^6/uL (4.00-5.40); WHITE BLOOD COUNT 13.8 10^3/uL (4.0-10.0)
[2019-08-08] MEDS: GASTROGRAFIN SOLUTION 30ML PO SCH ×2 (13:22→13:50)
[2019-08-08 13:27] LABS: HCG, SERUM QUALITATIVE NEGATIVE (NEGATIVE)
[2019-08-08 13:28] LABS: ALBUMIN 3.1 GM/DL (3.2-5.2); ALT/SGPT 18 U/L (12-78); BILIRUBIN,DIRECT 0.1 MG/DL (0.0-0.2); BILIRUBIN,TOTAL 0.5 MG/DL (0.2-1.0); BLOOD UREA NITROGEN 14 MG/DL (7-18); CALCIUM LEVEL 8.8 MG/DL (8.5-10.1); CARBON DIOXIDE LEVEL 27 MEQ/L (21-32); CHLORIDE LEVEL 100 MEQ/L (98-107); CREATININE FOR GFR 0.49 MG/DL (0.55-1.30); GLOMERULAR FILTRATION RATE > 60.0 (>58); GLUCOSE, FASTING 269 MG/DL (70-100); LIPASE 121 U/L (73-393); POTASSIUM SERUM 4.3 MEQ/L (3.5-5.1); SODIUM LEVEL 135 MEQ/L (136-145); TOTAL PROTEIN 6.6 GM/DL (6.4-8.2)
[2019-08-08] MEDS ORDERED: ISOVUE-370 76% 100ML VIAL As Ordered ONE (14:40)
[2019-08-08] MEDS ORDERED: KETOROLAC 30 MG/ML 1ML VIAL IV ONE (15:15)
[2019-08-08 16:15] VITALS: BP 141/70
--- NOTE | 2019-08-09 08:31 | REP ---
CT ABDOMEN AND PELVIS WITHOUT ORAL AND IV CONTRAST: Visualized lung bases demonstrate no evidence of acute infiltrate. Liver, gallbladder, spleen, adrenals, pancreas and kidneys are unremarkable and unchanged. There is no abdominal aortic aneurysm. No adenopathy is seen. There is no free air. Anterior abdominal wall hernia is again noted appearing similar to the prior study. There is some thickened small bowel in the hernia sac as well as mild fluid as seen on prior study. To the right of the hernia sac is an oval thick-walled fluid collection which is stable. Proximal small bowel is moderately dilated. There is diffuse mesenteric edema adjacent to the dilated small bowel loops. Distal ileum is collapsed. Once again the findings are consistent with small bowel obstruction. Mild diffuse fluid and air is seen in nondistended colon. In the pelvis, the uterus is significantly enlarged and heterogeneous with nodular pattern consistent with fibroid changes. There is a calcified fibroid anteriorly again noted. Urinary bladder is collapsed and not evaluated. There is mild free fluid in the abdomen. IMPRESSION: Large anterior abdominal wall hernia again noted containing small bowel loops and fluid. There is again evidence of high-grade small bowel obstruction caused by the hernia. There is mesenteric edema and fluid noted. An oval thick-walled fluid collection along the right side of the hernia sac is unchanged. There is no free air. Electronically Signed by Braydon Olson MD 08/11/2019 10:10 P
== END 2019-08-08 16:41 | disposition home or self-care (01) ==
LOC: M ED 10:42 → EDBD 10:42 → M ED 16:41
DX: K56.699 Other intestinal obstruction unspecified as to partial versus complete obstruction (principal); E03.9 Hypothyroidism, unspecified; E66.9 Obesity, unspecified; F31.9 Bipolar disorder, unspecified; F43.10 Post-traumatic stress disorder, unspecified; F17.200 Nicotine dependence, unspecified, uncomplicated; G47.33 Obstructive sleep apnea (adult) (pediatric); Z53.20 Procedure and treatment not carried out because of patient's decision for unspecified reasons; Z79.899 Other long term (current) drug therapy; Z91.013 Allergy to seafood; Z91.018 Allergy to other foods
CPT/HCPCS: 74177; 80048; 80076; 83690; 84703; 85025; 93041; 96361; 96374; 96375; 99285; J1885; J2765; Q9963; Q9967

== ENCOUNTER 2019-08-12 16:32 | Emergency (ER) | payer MEDICARE, MEDICAID ==
[~2019-08-12] VITALS: Ht 157.5 cm; Wt 99.5 kg
[2019-08-12] MEDS ORDERED: KETOROLAC 30 MG/ML 1ML VIAL IV ONE (17:15)
[2019-08-12] MEDS ORDERED: ONDANSETRON 4MG/2ML VIAL IV ONE (17:15)
[2019-08-12 17:18] LABS: BASO # 0.1 10^3/uL (0.0-0.2); BASO % 0.7 % (0.0-1.0); EOS # 0.3 10^3/uL (0.0-0.5); EOS % 3.2 % (0.0-3.0); HEMATOCRIT 40.6 % (36.0-47.0); HEMOGLOBIN 13.3 g/dl (12.0-15.5); LYMPH # 1.4 10^3/uL (1.5-5.0); LYMPH % 13.3 % (24.0-44.0); MEAN CORPUSCULAR HEMOGLOBIN 27.1 pg (27.0-33.0); MEAN CORPUSCULAR HGB CONC 32.8 g/dl (32.0-36.5); MEAN CORPUSCULAR VOLUME 82.7 fl (80.0-96.0); MONO # 0.4 10^3/uL (0.0-0.8); MONO % 3.7 % (0.0-5.0); NEUTROPHILS # 8.2 10^3/uL (1.5-8.5); NEUTROPHILS % 78.5 % (36.0-66.0); PLATELET COUNT, AUTOMATED 374 10^3/uL (150-450); RED BLOOD COUNT 4.91 10^6/uL (4.00-5.40); WHITE BLOOD COUNT 10.5 10^3/uL (4.0-10.0)
--- NOTE | 2019-08-12 17:45 | REP ---
Two views abdomen: 08/12/2019. Indication: Abdominal pain. Comparison: 5 days earlier. Findings: Bowel gas pattern is nonspecific without evidence of obstruction. There is no evidence of organomegaly. No free intraperitoneal air is detected. Partially calcified uterine fibroid is again noted. Impression: No acute abdominal pathology detected. Electronically Signed by Vasyl Lara DO 08/12/2019 05:36 P
[2019-08-12 17:50] LABS: ALBUMIN 3.4 GM/DL (3.2-5.2); ALT/SGPT 20 U/L (12-78); BILIRUBIN,DIRECT < 0.1 MG/DL (0.0-0.2); BILIRUBIN,TOTAL 0.5 MG/DL (0.2-1.0); LIPASE 92 U/L (73-393); TOTAL PROTEIN 7.2 GM/DL (6.4-8.2)
[2019-08-12] MEDS ORDERED: ISOVUE-370 76% 100ML VIAL As Ordered ONE (18:24)
--- NOTE | 2019-08-12 19:00 | REPVR ---
PROCEDURE INFORMATION: Exam: CT Abdomen And Pelvis With Contrast Exam date and time: 08/12/2019 6:37 PM Age: 43 years old Clinical indication: Abdominal pain; Generalized; Additional info: Pain/hx of sbo TECHNIQUE: Imaging protocol: Computed tomography of the abdomen and pelvis with intravenous contrast. Radiation optimization: All CT scans at this facility use at least one of these dose optimization techniques: automated exposure control; mA and/or kV adjustment per patient size (includes targeted exams where dose is matched to clinical indication); or iterative reconstruction. Contrast material: ISOVUE 370; Contrast volume: 100 ml; Contrast route: IV; COMPARISON: CT ABD/PEL W/IV ORAL CONTRAS 08/08/2019 2:49 PM FINDINGS: Liver: Examination of the liver demonstrates a minimally lobular surface contour, and enlargement of the left and caudate lobes, findings which can be consistent with cirrhosis in the appropriate clinical setting. Hepatomegaly. Gallbladder and bile ducts: Normal. No calcified stones. No ductal dilation. Pancreas: Normal. No ductal dilation. Spleen: Normal. No splenomegaly. Adrenals: There is bilateral adrenal hyperplasia. Kidneys and ureters: Normal. No hydronephrosis. Stomach and bowel: Dilated loops of small bowel demonstrated proximal to the hernias likely postobstructive consistent with moderate to high-grade small-bowel obstruction. The presence of thickened wall in many of the bowel loops may suggest regional enteritis or other bowel pathology such as inflammatory bowel disease. Appendix: No evidence of appendicitis. Intraperitoneal space: There is a small amount of free intraperitoneal fluid present, possibly related to the presence of a bowel obstruction. Vasculature: Unremarkable. No abdominal aortic aneurysm. Lymph nodes: Unremarkable. No enlarged lymph nodes. Bladder: Unremarkable as visualized. Reproductive: Bulky myomatous enlargement of the uterus containing calcified and noncalcified myomas. Bones/joints: Mild central spinal stenosis at L4-L5. Soft tissues: Multiple anterior abdominal wall hernias including a large umbilical hernia containing thickened wall loops of bowel suggesting possible incarceration as well as a spigelian hernia in the right lower quadrant also containing thickened loops of bowel also suggesting possible incarceration. IMPRESSION: 1. Examination of the liver demonstrates a minimally lobular surface contour, and enlargement of the left and caudate lobes, findings which can be consistent with cirrhosis in the appropriate clinical setting. Hepatomegaly. 2. There is bilateral adrenal hyperplasia. 3. Multiple anterior abdominal wall hernias including a large umbilical hernia containing thickened wall loops of bowel suggesting possible incarceration as well as a spigelian hernia in the right lower quadrant also containing thickened loops of bowel also suggesting possible incarceration. 4. Dilated loops of small bowel demonstrated proximal to the hernias likely postobstructive consistent with moderate to high-grade small-bowel obstruction. The presence of thickened wall in many of the bowel loops may suggest regional enteritis or other bowel pathology such as inflammatory bowel disease. 5. Bulky myomatous enlargement of the uterus containing calcified and noncalcified myomas. 6. There is a small amount of free intraperitoneal fluid present, possibly related to the presence of a bowel obstruction. Electronically signed by: Davian Rosa On 08/12/2019 19:00:12 PM
[2019-08-12 19:54] VITALS: BP 152/85
== END 2019-08-12 20:07 | disposition left against medical advice (07) ==
LOC: M ED 16:32 → EDBD 16:32 → M ED 20:07
DX: K56.690 Other partial intestinal obstruction (principal); K42.9 Umbilical hernia without obstruction or gangrene; K21.9 Gastro-esophageal reflux disease without esophagitis; F31.9 Bipolar disorder, unspecified; E11.9 Type 2 diabetes mellitus without complications; Z53.20 Procedure and treatment not carried out because of patient's decision for unspecified reasons; Z91.013 Allergy to seafood; Z91.018 Allergy to other foods

== ENCOUNTER 2019-08-14 11:38 | Inpatient (IN) | payer MEDICARE, MEDICAID ==
[~2019-08-14] VITALS: Ht 157.5 cm; Wt 103.6 kg
[2019-08-14] MEDS ORDERED: MORPHINE 4 MG/ML 1ML VIAL/SYRINGE (J2270) IV ONE (12:00)
[2019-08-14] MEDS ORDERED: ONDANSETRON 4MG/2ML VIAL IV ONE (12:00)
[2019-08-14] MEDS ORDERED: NS 1,000 ML IV ONE (12:00)
[2019-08-14 12:27] LABS: BASO # 0.1 10^3/uL (0.0-0.2); BASO % 0.8 % (0.0-1.0); EOS # 0.4 10^3/uL (0.0-0.5); EOS % 4.9 % (0.0-3.0); HEMATOCRIT 37.9 % (36.0-47.0); HEMOGLOBIN 12.4 g/dl (12.0-15.5); LYMPH # 1.7 10^3/uL (1.5-5.0); LYMPH % 21.4 % (24.0-44.0); MEAN CORPUSCULAR HEMOGLOBIN 27.2 pg (27.0-33.0); MEAN CORPUSCULAR HGB CONC 32.7 g/dl (32.0-36.5); MEAN CORPUSCULAR VOLUME 83.1 fl (80.0-96.0); MONO # 0.3 10^3/uL (0.0-0.8); MONO % 4.1 % (0.0-5.0); NEUTROPHILS # 5.3 10^3/uL (1.5-8.5); NEUTROPHILS % 68.3 % (36.0-66.0); PLATELET COUNT, AUTOMATED 393 10^3/uL (150-450); RED BLOOD COUNT 4.56 10^6/uL (4.00-5.40); WHITE BLOOD COUNT 7.8 10^3/uL (4.0-10.0)
[2019-08-14 12:40] LABS: INR 0.8; PROTHROMBIN TIME 10.8 SECONDS (11.8-14.0)
[2019-08-14 13:03] LABS: ALBUMIN 3.2 GM/DL (3.2-5.2); ALT/SGPT 20 U/L (12-78); BILIRUBIN,DIRECT 0.1 MG/DL (0.0-0.2); BILIRUBIN,TOTAL 0.4 MG/DL (0.2-1.0); BLOOD UREA NITROGEN 14 MG/DL (7-18); CALCIUM LEVEL 8.8 MG/DL (8.5-10.1); CARBON DIOXIDE LEVEL 26 MEQ/L (21-32); CHLORIDE LEVEL 102 MEQ/L (98-107); CREATININE FOR GFR 0.76 MG/DL (0.55-1.30); GLOMERULAR FILTRATION RATE > 60.0 (>58); GLUCOSE, FASTING 345 MG/DL (70-100); LIPASE 128 U/L (73-393); POTASSIUM SERUM 3.9 MEQ/L (3.5-5.1); SODIUM LEVEL 136 MEQ/L (136-145); TOTAL PROTEIN 6.9 GM/DL (6.4-8.2)
--- NOTE | 2019-08-14 13:32 | REP ---
Three views abdomen: 08/14/2019. Indication: Abdominal pain. Comparison: 2 days earlier. Findings: There is a persistent pattern of small bowel obstruction. Calcified uterine fibroid is again noted. There is no evidence of free intraperitoneal air. The lungs are clear. There is no pleural effusion or pneumothorax. Cardiac silhouette is unremarkable. Impression: Persistent small bowel obstruction compared to 2 days earlier. Electronically Signed by Vasyl Lara DO 08/14/2019 01:24 P
[2019-08-14] MEDS ORDERED: MORPHINE 2 MG/ML 1ML VIAL (J2270) IV ONE (14:15)
--- NOTE | 2019-08-14 14:55 | HPEPDOC ---
[facility] Medical History & Physical Date of Admission Aug 14, 2019 Date of Service: Aug 14, 2019 Attending Physician: ZAIRA JIMENEZ MD History and Physical TIME OF SERVICE: 250AM CHIEF COMPLAINT: abdominal pain HISTORY OF PRESENT ILLNESS: This is a 43 old female who presented to the hospital for the third time this week because of 8/10 in severity, left lower quadrant, nonradiating, intermittent abdominal pain. She denies having vomiting, constipation or diarrhea. Her last BM was yesterday. She has passed gas in the ER. On August [address] that showed possible incarcerated umbilical and spigelian hernias along with high grade small bowel obstruction, but left the ER AMA after receiving pain meds. KUB done today confirmed SBO. Per discussion with Krysta, Dr. Sanchez has been consulted and recommended NG to suction. REVIEW OF SYSTEMS: 12 point review of systems negative except as listed in HPI PAST MEDICAL/ SURGICAL HISTORY: NICA BIPAP settings 20/01 History of Hypothyroidism DM A1C 10.4% in Mar Hepatomegaly Class 4 Obesity Tonsillectomy C section x1 Abortions x5 PTSD Bipolar disorder Hx of MDD with suicidal ideation requiring hospitalizations in the past Incarcerated ventral hernia repair 2013 & 2017 Elective recurrent hernia repair 2014 SOCIAL HISTORY: + Tobacco Hx of THC and opiate use has 1 son who is in her mothers custody FAMILY HISTORY: Asthma Cervical CA Breast CA ALLERGIES: Please see below. HOME MEDICATIONS: Please see below. PHYSICAL EXAMINATION: Vital Signs Date Time Temp Pulse Resp B/P (MAP) Pulse Ox O2 Delivery O2 Flow Rate FiO2 08/14/19 11:51 99.6 80 24 169/100 (123) 97 Room Air GEN: well-nourished / well developed/ NAD HEENT: NCAT / NG in place CVS: RRR/NMRG LUNGS: lungs are clear to auscultation bilaterally on room air ABDOMEN: Contour (obese) / soft & slightly tender with palpation MSK/EXTREMITIES: /gait normal NEURO: CN 2-12 are grossly intact / speech is not dysarthric PSYCH: alert and oriented to person place and time/ able to understand and follow all commands LABORATORY DATA: Immature Granulocyte % (Auto) 0.5, Neutrophils (%) (Auto) 68.3H, Lymphocytes (%) (Auto) 21.4L, Monocytes (%) (Auto) 4.1, Eosinophils (%) (Auto) 4.9H, Basophils (%) (Auto) 0.8, Neutrophils # (Auto) 5.3, Lymphocytes # (Auto) 1.7, Monocytes # (Auto) 0.3, Eosinophils # (Auto) 0.4, Basophils # (Auto) 0.1, Nucleated Red Blood Cells % (auto) 0.0, Prothrombin Time 10.8L, Prothromb Time International Ratio 0.80, Activated Partial Thromboplast Time 20.0L, Anion Gap 8, Glomerular Filtration Rate > 60.0, Lactic Acid Level 1.7, Calcium Level 8.8, Total Bilirubin 0.4, Direct Bilirubin 0.1, Aspartate Amino Transf (AST/SGOT) 9, Alanine Aminotransferase (ALT/SGPT) 20, Alkaline Phosphatase 105, Total Protein 6.9, Albumin 3.2, Albumin/Globulin Ratio 0.9L, Lipase 128 08/14/19 14:46: [facility]side Gl[facility] 267H IMAGING: CT of the abdomen from August 11 "IMPRESSION: 1. Examination of the liver demonstrates a minimally lobular surface contour, and enlargement of the left and caudate lobes, findings which can be consistent with cirrhosis in the appropriate clinical setting. Hepatomegaly. 2. There is bilateral adrenal hyperplasia. 3. Multiple anterior abdominal wall hernias including a large umbilical hernia containing thickened wall loops of bowel suggesting possible incarceration as well as a spigelian hernia in the right lower quadrant also containing thickened loops of bowel also suggesting possible incarceration. 4. Dilated loops of small bowel demonstrated proximal to the hernias likely postobstructive consistent with moderate to high-grade small-bowel obstruction. The presence of thickened wall in many of the bowel loops may suggest regional enteritis or other bowel pathology such as inflammatory bowel disease. 5. Bulky myomatous enlargement of the uterus containing calcified and noncalcified myomas. 6. There is a small amount of free intraperitoneal fluid present, possibly related to the presence of a bowel obstruction. " X-ray of the abdomen " Impression: Persistent small bowel obstruction compared to 2 days earlier." ASSESSMENT: is a 43 yr old w a PMH of NICA, DM, Class 4 obesity, & Bipolar disorder who is admitted for recurrent SBO vs Partial SBO. PLAN: 1. SBO vs Partial SBO w possible incarceration and enteritis- admit to medical floor / NPO / NG to suction / Zofran & Morphine for pain / f/u w / will not give antibiotics because she does not have SIRS criteria 2. Uncontrolled DM - f/u A1C, accuchecks, hypoglycemia protocol w SSS 4. Class 3 obesity w co-existing DM and NICA complicates care. DVT Px w SCDs Dispo: home after more than 2 midnights stay Laboratory Data CBC/BMP Laboratory Tests 08/14/19 12:11 Home Medications No Active Prescriptions or Reported Meds Allergies Coded Allergies: [place] (Verified Allergy, Intermediate, RASH, 01/09/19) SEAFOOD (Verified Allergy, Intermediate, RASH, 01/09/19) shellfish derived (Verified Allergy, Intermediate, hives, 01/09/19) A-FIB/CHADSVASC A-FIB History Current/History of A-Fib/PAF?: No Current PO Anticoag Therapy: No ZAIRA JIMENEZ MD Aug 14, 2019 14:55
[2019-08-14] MEDS ORDERED: DEXTROSE 50% 50 ML SYRINGE IV PRN (15:00)
[2019-08-14] MEDS ORDERED: GLUCOSE 4GM CHEW TABLET PO PRN (15:00)
[2019-08-14] MEDS ORDERED: GLUCAGON INJ 1MG VIAL SC PRN (15:00)
[2019-08-14 15:44] VITALS: BP 142/82
[2019-08-14] MEDS: NS 1,000 ML IV SCH ×2 (16:03→23:01)
[2019-08-14] MEDS: ONDANSETRON 4MG/2ML VIAL IV PRN ×2 (16:37→20:37)
[2019-08-14] MEDS: MORPHINE 2 MG/ML 1ML VIAL (J2270) IV PRN ×3 (16:37→23:00)
[2019-08-14] MEDS: HumaLOG INSULIN (NovoLOG) PER UNIT SC SCH ×2 (18:00→18:29)
[2019-08-14 22:00] VITALS: BP 146/78
[2019-08-15] MEDS: HumaLOG INSULIN (NovoLOG) PER UNIT SC SCH ×2 (00:06→06:10)
[2019-08-15] MEDS: ONDANSETRON 4MG/2ML VIAL IV PRN (05:12)
[2019-08-15 06:00] VITALS: BP 142/84
[2019-08-15 06:14] LABS: HEMATOCRIT 33.6 % (36.0-47.0); MEAN CORPUSCULAR HEMOGLOBIN 27.4 pg (27.0-33.0); MEAN CORPUSCULAR HGB CONC 32.7 g/dl (32.0-36.5); MEAN CORPUSCULAR VOLUME 83.6 fl (80.0-96.0); PLATELET COUNT, AUTOMATED 331 10^3/uL (150-450); RED BLOOD COUNT 4.02 10^6/uL (4.00-5.40); WHITE BLOOD COUNT 8.4 10^3/uL (4.0-10.0)
[2019-08-15 06:22] LABS: INR 0.97; PROTHROMBIN TIME 12.6 SECONDS (11.8-14.0)
[2019-08-15 06:31] LABS: BLOOD UREA NITROGEN 11 MG/DL (7-18); CALCIUM LEVEL 7.7 MG/DL (8.5-10.1); CARBON DIOXIDE LEVEL 28 MEQ/L (21-32); CHLORIDE LEVEL 107 MEQ/L (98-107); CREATININE FOR GFR 0.45 MG/DL (0.55-1.30); GLOMERULAR FILTRATION RATE > 60.0 (>58); GLUCOSE, FASTING 154 MG/DL (70-100); POTASSIUM SERUM 3.8 MEQ/L (3.5-5.1); SODIUM LEVEL 141 MEQ/L (136-145)
--- NOTE | 2019-08-15 08:41 | DS.PDOC ---
Discharge Summary General Date of Admission Aug 14, 2019 at 14:50 Date of Discharge 08/15/2019 Attending Physician: DRISS KELLY MD Discharge Summary PROCEDURES PERFORMED DURING STAY: None ADMITTING DIAGNOSES: 1. SBO DISCHARGE DIAGNOSES: SBO NICA on BIPAP settings 20/01 Hypothyroidism DM Hepatomegaly Class 4 Obesity Tonsillectomy PTSD Bipolar disorder Hx of MDD with suicidal ideation requiring hospitalizations in the past Incarcerated ventral hernia repair 2013 & 2016 Elective recurrent hernia repair 2014 COMPLICATIONS/CHIEF COMPLAINT: SBO. HISTORY OF PRESENT ILLNESS: 43yo old W who presented to the hospital for the third time this week because of 8/10 in severity, left lower quadrant, nonradiating, intermittent abdominal pain without vomiting, constipation or diarrhea, after a 08/11 CT showed possible incarcerated umbilical and spigelian hernias along with high grade small bowel obstruction, but left the ED AMA after receiving pain meds. KUB done on admi ssion on 08/13 confirmed SBO and per discussion with Dr. Daniel Chaparro recommended NG to suction and admission to medicine. HOSPITAL COURSE: She was admitted and was on the floor with hydration, pain management and IVF and on the morning 08/14 signed out AMA before I could meet her. DISCHARGE MEDICATIONS: Please see below. ALLERGIES: Please see below. PHYSICAL EXAMINATION ON DISCHARGE: VITAL SIGNS: Please see below. HDS, afebrile. NOT COMPLETED DUE NOT HAVING MET PATIENT BEFORE SHE SIGNED OUT AMA. LABORATORY DATA: Please see below. IMAGIN/11 KUB confirmed SBO PROGNOSIS: Good for overall survival, but with high risk for return to ED given ongoing SBO. ACTIVITY: As tolerated. DIET: had been made NPO but removed NGT and left. DISCHARGE PLAN: AMA DISPOSITION: 07 Against Medical Advice. DISCHARGE INSTRUCTIONS: N/A. To return to the hospital when she deems appropriate ITEMS TO FOLLOWUP ON ON OUTPATIENT: SBO DISCHARGE CONDITION: Stable TIME SPENT ON DISCHARGE: 31 minutes. Vital Signs/I&Os Vital Signs Date Time Temp Pulse Resp B/P (MAP) Pulse Ox O2 Delivery O2 Flow Rate FiO2 08/15/19 06:00 97.1 59 18 142/84 (103) 95 Room Air I&O- Last 24 Hours up to 6 AM 08/15/19 06:00 Intake Total 2560 ml Output Total 200 ml Balance 2360 ml Laboratory Data Labs 24H Laboratory Tests 2 6/11/20 12:11: Immature Granulocyte % (Auto) 0.5, Neutrophils (%) (Auto) 68.3H, Lymphocytes (%) (Auto) 21.4L, Monocytes (%) (Auto) 4.1, Eosinophils (%) (Auto) 4.9H, Basophils (%) (Auto) 0.8, Neutrophils # (Auto) 5.3, Lymphocytes # (Auto) 1.7, Monocytes # (Auto) 0.3, Eosinophils # (Auto) 0.4, Basophils # (Auto) 0.1, Nucleated Red Blood Cells % (auto) 0.0, Prothrombin Time 10.8L, Prothromb Time International Ratio 0.80, Activated Partial Thromboplast Time 20.0L, Anion Gap 8, Glomerular Filtration Rate > 60.0, Estimated Mean Plasma Glucose 240H, Hemoglobin A1c 10.0, Lactic Acid Level 1.7, Calcium Level 8.8, Total Bilirubin 0.4, Direct Bilirubin 0.1, Aspartate Amino Transf (AST/SGOT) 9, Alanine Aminotransferase (ALT/SGPT) 20, Alkaline Phosphatase 105, Total Protein 6.9, Albumin 3.2, Albumin/Globulin Ratio 0.9L, Lipase 128 08/14/19 14:46: Bedside Glucose (Misc Panel) 267H 08/14/19 17:55: Bedside Glucose (Misc Panel) 210H 08/14/19 23:46: Bedside Glucose (Misc Panel) 189H 08/15/19 05:08: Bedside Glucose (Misc Panel) 153H 08/15/19 05:16: Nucleated Red Blood Cells % (auto) 0.0, Prothrombin Time 12.6, Prothromb Time International Ratio 0.97, Anion Gap 6L, Glomerular Filtration Rate > 60.0, Calcium Level 7.7L CBC/BMP Laboratory Tests 08/14/19 12:11 08/15/19 05:16 FSBS Laboratory Tests Test 08/14/19 14:46 08/14/19 17:55 08/14/19 23:46 08/15/19 05:08 Range/Units Bedside Glucose (Misc Panel) 267 210 189 153 70-105 MG/DL Discharge Medications No Active Prescriptions or Reported Meds Allergies Coded Allergies: [place] (Verified Allergy, Intermediate, RASH, 01/09/19) SEAFOOD (Verified Allergy, Intermediate, RASH, 01/09/19) shellfish derived (Verified Allergy, Intermediate, hives, 01/09/19) DRISS KELLY MD Aug 15, 2019 08:41
--- NOTE | 2019-08-15 10:34 | IPNPDOC ---
Text Note Date of Service The patient was seen on 08/15/19. NOTE Patient not seen or evaluated. She is known to me from previous admissions. She has signed out AMA prior to me seeing her. VS,Jose J, I+O VSJose J, I+O Laboratory Tests 08/14/19 12:11 08/15/19 05:16 Vital Signs Date Time Temp Pulse Resp B/P (MAP) Pulse Ox O2 Delivery O2 Flow Rate FiO2 08/15/19 06:00 97.1 59 18 142/84 (103) 95 Room Air I&O- Last 24 Hours up to 6 AM 08/15/19 05:59 Intake Total 1840 ml Output Total 200 ml Balance 1640 ml NIGHAT LAM MD Aug 15, 2019 10:34
== END 2019-08-15 07:16 | disposition left against medical advice (07) | DRG 390 ==
LOC: M ED 11:38 → EDBD 11:38 → M ED INP 14:50 → ENRESERV 15:04 → M MSPAV 15:44
PROVIDERS: ADMIT Internal Medicine; ATTEND Internal Medicine
DX: K56.609 Unspecified intestinal obstruction, unspecified as to partial versus complete obstruction (principal); G47.33 Obstructive sleep apnea (adult) (pediatric); E03.9 Hypothyroidism, unspecified; E11.9 Type 2 diabetes mellitus without complications; E66.9 Obesity, unspecified; F31.9 Bipolar disorder, unspecified; F43.10 Post-traumatic stress disorder, unspecified; Z91.018 Allergy to other foods; Z91.013 Allergy to seafood

== ENCOUNTER 2019-08-18 19:13 | Emergency (ER) | payer MEDICARE, MEDICAID ==
[~2019-08-18] VITALS: Ht 157.5 cm; Wt 99.5 kg
[2019-08-18] MEDS ORDERED: METO10TA2 PO (19:26)
[2019-08-18] MEDS ORDERED: MIRA3350 PO (19:26)
[2019-08-18] MEDS ORDERED: MAGNESIUM CITRATE 300 ML BTL PO ONE (20:30)
[2019-08-18 20:45] VITALS: BP 143/79
--- NOTE | 2019-08-19 08:39 | REP ---
KUB: Two views presented. HISTORY: Distension. COMPARISON STUDY: August 14, 2019. FINDINGS: Bowel gas pattern is normal. There is a large calcified mass in the right central pelvis again noted 5.6 cm in greatest diameter compatible with calcified uterine leiomyoma. This was observed on August 12, 2019 CT study. It is unchanged. Flank stripes are intact. Psoas margins are obscured. IMPRESSION: Calcified uterine leiomyoma noted in the right central pelvis unchanged. Normal bowel gas pattern. Electronically Signed by Diomedes Godfrey MD 08/19/2019 12:20 P
[2019-08-19] MEDS ORDERED: IBUP200C29 PO (15:15)
== END 2019-08-18 20:47 | disposition home or self-care (01) ==
LOC: M ED 19:13
DX: K59.00 Constipation, unspecified (principal); E11.9 Type 2 diabetes mellitus without complications; F17.200 Nicotine dependence, unspecified, uncomplicated; Z79.899 Other long term (current) drug therapy; Z91.013 Allergy to seafood; Z91.018 Allergy to other foods

== ENCOUNTER 2019-08-19 13:05 | Emergency (ER) | payer MEDICARE, MEDICAID ==
[~2019-08-19] VITALS: Ht 157.5 cm; Wt 99.5 kg
[~2019-08-19 13:05] MED LIST changes: +METO10TA2 PO
[2019-08-19] MEDS ORDERED: ONDANSETRON 4MG/2ML VIAL IV ONE (13:30)
[2019-08-19] MEDS ORDERED: MORPHINE 2 MG/ML 1ML VIAL (J2270) IV PRN (13:30)
[2019-08-19] MEDS ORDERED: NS 1,000 ML IV ONE (13:30)
[2019-08-19 13:39] LABS: BASO # 0.1 10^3/uL (0.0-0.2); BASO % 0.7 % (0.0-1.0); EOS # 0.3 10^3/uL (0.0-0.5); EOS % 4.1 % (0.0-3.0); HEMATOCRIT 40.3 % (36.0-47.0); LYMPH # 1.6 10^3/uL (1.5-5.0); LYMPH % 19.4 % (24.0-44.0); MEAN CORPUSCULAR HGB CONC 32.3 g/dl (32.0-36.5); MEAN CORPUSCULAR VOLUME 83.6 fl (80.0-96.0); MONO # 0.4 10^3/uL (0.0-0.8); MONO % 4.7 % (0.0-5.0); NEUTROPHILS # 5.7 10^3/uL (1.5-8.5); NEUTROPHILS % 70.7 % (36.0-66.0); PLATELET COUNT, AUTOMATED 394 10^3/uL (150-450); RED BLOOD COUNT 4.82 10^6/uL (4.00-5.40)
[2019-08-19 13:45] VITALS: BP 170/110
[2019-08-19] MEDS ORDERED: ISOVUE-370 76% 100ML VIAL As Ordered ONE (13:55)
[2019-08-19 14:01] LABS: ALBUMIN 3.5 GM/DL (3.2-5.2); ALT/SGPT 18 U/L (12-78); BILIRUBIN,DIRECT < 0.1 MG/DL (0.0-0.2); BILIRUBIN,TOTAL 0.5 MG/DL (0.2-1.0); LIPASE 142 U/L (73-393); TOTAL PROTEIN 7.3 GM/DL (6.4-8.2)
--- NOTE | 2019-08-19 15:06 | REP ---
CT ABDOMEN AND PELVIS WITH IV BUT WITHOUT ORAL CONTRAST: HISTORY: Left-sided abdomen pain. Hernia. Comparison study August 12, 2019. CT CONTRAST DOSE: 100 mL of intravenous Isovue 370. CT FINDINGS: Preliminary digital western felt hat blocker radiograph shows an unremarkable bowel gas pattern. Calcified uterine fibroid is again noted to the right of midline in the pelvis. Axial CT images demonstrate that the lung bases are essentially clear. No pleural effusion or upper abdominal ascites is seen. No focal hepatic or splenic lesion is observed. The liver is somewhat prominent as before. This measures 17.5 cm in midclavicular vertical span. It is felt to be unchanged. Spleen is normal in size homogeneous in texture. No adrenal lesion is observed. No abnormalities noted in the pancreas. The gallbladder is of unremarkable. The kidneys enhance symmetrically and are morphologically intact. There are multiple loops of dilated air and fluid-filled small bowel in the central abdomen.. These appear to be associated with an invested in a complex abdominal wall hernia of the ventral abdominal wall which is predominantly periumbilical. There is a point of transition with the distal most 10 to 15 cm of the terminal ileum being normal in caliber and uninvolved. The findings are similar to the appearance of this August 12, [address] study. There is mild left colonic diverticulosis. Colon shows no evidence of large bowel obstruction. There is no evidence of free intraperitoneal air or abnormal fluid collection. There is markedly enlarged fibroid uterus with multiple uterine leiomyomas. The smallest of these is the densely calcified leiomyoma, which is observed on plain radiographs. Urinary bladder is somewhat compressed by the enlarged uterus but otherwise intact. No adnexal pathology is appreciated. IMPRESSION: 1. Small bowel obstruction pattern associated with complex ventral hernia in the periumbilical abdominal wall. Point of transition at the level of the distal ileum approximately 10 cm from the ileocecal valve. 2. Mildly prominent liver size. 3. Markedly enlarged multiple fibroid uterus. Electronically Signed by Diomedes Godfrey MD 08/20/2019 08:09 A
[2019-08-19] MEDS ORDERED: IBUP200C29 PO (15:15)
== END 2019-08-19 15:43 | disposition left against medical advice (07) ==
LOC: EDBD 13:05 → M ED 13:05
DX: K56.690 Other partial intestinal obstruction (principal); K43.6 Other and unspecified ventral hernia with obstruction, without gangrene; N85.2 Hypertrophy of uterus; E11.9 Type 2 diabetes mellitus without complications; F17.200 Nicotine dependence, unspecified, uncomplicated; F43.10 Post-traumatic stress disorder, unspecified; F31.9 Bipolar disorder, unspecified; Z53.20 Procedure and treatment not carried out because of patient's decision for unspecified reasons; Z79.899 Other long term (current) drug therapy; Z91.013 Allergy to seafood; Z91.018 Allergy to other foods
CPT/HCPCS: 74177; 80047; 80076; 83605; 83690; 84702; 85025; 96361; 96374; 96375; 99284; J2270; J2405; Q9967

== ENCOUNTER 2019-08-21 15:08 | Emergency (ER) | payer MEDICARE, MEDICAID ==
[~2019-08-21 15:08] MED LIST changes: +IBUP200C29 PO
[2019-08-21 15:15] VITALS: BP 167/88
[2019-08-21 16:51] LABS: BASO # 0.1 10^3/uL (0.0-0.2); BASO % 0.6 % (0.0-1.0); EOS # 0.4 10^3/uL (0.0-0.5); EOS % 4.4 % (0.0-3.0); HEMATOCRIT 38.1 % (36.0-47.0); HEMOGLOBIN 12.2 g/dl (12.0-15.5); LYMPH # 1.8 10^3/uL (1.5-5.0); LYMPH % 21.5 % (24.0-44.0); MEAN CORPUSCULAR HEMOGLOBIN 26.8 pg (27.0-33.0); MEAN CORPUSCULAR VOLUME 83.7 fl (80.0-96.0); MONO # 0.5 10^3/uL (0.0-0.8); MONO % 5.5 % (0.0-5.0); NEUTROPHILS # 5.5 10^3/uL (1.5-8.5); NEUTROPHILS % 67.8 % (36.0-66.0); PLATELET COUNT, AUTOMATED 368 10^3/uL (150-450); RED BLOOD COUNT 4.55 10^6/uL (4.00-5.40); WHITE BLOOD COUNT 8.2 10^3/uL (4.0-10.0)
[2019-08-21 17:36] LABS: ALBUMIN 3.1 GM/DL (3.2-5.2); BILIRUBIN,DIRECT 0.1 MG/DL (0.0-0.2); BILIRUBIN,TOTAL 0.2 MG/DL (0.2-1.0); TOTAL PROTEIN 6.5 GM/DL (6.4-8.2)
--- NOTE | 2019-08-22 07:04 | ED PDOC ---
Post-Departure Follow-Up radiology rpeort faxed to Milagros Antonio Sarah MD Aug 22, 2019 07:04
== END 2019-08-21 16:47 | disposition left against medical advice (07) ==
LOC: EDSEX 15:08 → M ED 15:08 → EDBD 15:08 → M ED 16:47
DX: K56.699 Other intestinal obstruction unspecified as to partial versus complete obstruction (principal); R10.32 Left lower quadrant pain; E11.9 Type 2 diabetes mellitus without complications; E03.9 Hypothyroidism, unspecified; K21.9 Gastro-esophageal reflux disease without esophagitis; F31.9 Bipolar disorder, unspecified; F43.10 Post-traumatic stress disorder, unspecified; Z79.899 Other long term (current) drug therapy; Z91.013 Allergy to seafood; Z91.010 Allergy to peanuts; Z53.20 Procedure and treatment not carried out because of patient's decision for unspecified reasons

== ENCOUNTER 2019-09-11 20:00 | Emergency (ER) | payer MEDICARE, MEDICAID ==
[~2019-09-11] VITALS: Ht 157.5 cm; Wt 99.5 kg
[2019-09-11 20:09] VITALS: BP 201/90
[2019-09-11] MEDS ORDERED: AMOX875T (20:09)
[2019-09-11] MEDS ORDERED: GI COCKTAIL 50ML BTL(HYOSCYAMINE/MAALOX/LIDOCAINE VISCOUS)(1:3:1) PO ONE (20:30)
== END 2019-09-11 21:15 | disposition home or self-care (01) ==
LOC: M ED 20:00
DX: H61.23 Impacted cerumen, bilateral (principal); E11.9 Type 2 diabetes mellitus without complications; F17.200 Nicotine dependence, unspecified, uncomplicated; K21.9 Gastro-esophageal reflux disease without esophagitis; Z91.013 Allergy to seafood; Z91.018 Allergy to other foods

== ENCOUNTER 2019-09-14 16:40 | Emergency (ER) | payer MEDICARE, MEDICAID ==
[~2019-09-14 16:40] MED LIST changes: +AMOX875T
[2019-09-14] MEDS ORDERED: GI COCKTAIL 50ML BTL(HYOSCYAMINE/MAALOX/LIDOCAINE VISCOUS)(1:3:1) PO ONE (17:30)
[2019-09-14 17:56] LABS: BASO # 0.1 10^3/uL (0.0-0.2); BASO % 0.6 % (0.0-1.0); EOS # 0.5 10^3/uL (0.0-0.5); EOS % 3.9 % (0.0-3.0); HEMOGLOBIN 13.2 g/dl (12.0-15.5); LYMPH # 2.1 10^3/uL (1.5-5.0); LYMPH % 18.3 % (24.0-44.0); MEAN CORPUSCULAR HGB CONC 32.2 g/dl (32.0-36.5); MEAN CORPUSCULAR VOLUME 83.8 fl (80.0-96.0); MONO # 0.5 10^3/uL (0.0-0.8); MONO % 4.4 % (0.0-5.0); NEUTROPHILS # 8.5 10^3/uL (1.5-8.5); NEUTROPHILS % 72.5 % (36.0-66.0); PLATELET COUNT, AUTOMATED 344 10^3/uL (150-450); RED BLOOD COUNT 4.89 10^6/uL (4.00-5.40); WHITE BLOOD COUNT 11.7 10^3/uL (4.0-10.0)
[2019-09-14 18:25] LABS: ALBUMIN 3.2 GM/DL (3.2-5.2); BILIRUBIN,DIRECT 0.1 MG/DL (0.0-0.2); BILIRUBIN,TOTAL 0.3 MG/DL (0.2-1.0)
[2019-09-14] MEDS ORDERED: PRIL20TA2 PO (19:01)
[2019-09-14] MEDS ORDERED: SUCR1SS PO (19:01)
[2019-09-14 19:10] VITALS: BP 136/80
--- NOTE | 2019-09-15 04:31 | REP ---
ABDOMEN, SUPINE: 09/14/2019. COMPARISON: KUB 08/18/2019, CT 08/19/2019. CLINICAL HISTORY: Abdominal pain. FINDINGS: Gas pattern is nonspecific. There are some mildly dilated small bowel loops suggested. No gross free air. There is a large heavily calcified fibroid projecting over the right sacral ala and measuring about 5.7 cm, unchanged from previous studies, except that it moves in relationship to the sacrum as it is a known anterior fibroid in the uterus. Bones without acute finding. There are minor degenerative changes in the hips. No abnormal calcifications over the renal fossae or expected course of the ureters to the bladder. IMPRESSION: 1. Nonspecific gas pattern, but there are some dilated small bowel loops evident in this patient with known midline abdominal wall hernia. 2. Large heavily calcified fibroid projects over the right sacral ala. 3. No other significant finding. Electronically Signed by Agustin Chavez MD 09/15/2019 08:56 A
== END 2019-09-14 19:23 | disposition home or self-care (01) ==
LOC: M ED 16:40
DX: K29.70 Gastritis, unspecified, without bleeding (principal); E11.9 Type 2 diabetes mellitus without complications; K21.9 Gastro-esophageal reflux disease without esophagitis; F31.9 Bipolar disorder, unspecified; F43.10 Post-traumatic stress disorder, unspecified; F41.9 Anxiety disorder, unspecified; F17.210 Nicotine dependence, cigarettes, uncomplicated; G43.909 Migraine, unspecified, not intractable, without status migrainosus; G47.30 Sleep apnea, unspecified; E03.9 Hypothyroidism, unspecified; Z91.013 Allergy to seafood; Z91.018 Allergy to other foods

== ENCOUNTER 2019-09-15 07:05 | Inpatient (IN) | payer MEDICARE, MEDICAID ==
[~2019-09-15] VITALS: Ht 188 cm; Wt 100.0 kg
[~2019-09-15 07:05] MED LIST changes: +PRIL20TA2 PO; +SUCR1SS PO
[2019-09-15] MEDS ORDERED: GASTROGRAFIN SOLUTION 30ML (Q9963) As Ordered ONE (07:34)
[2019-09-15] MEDS ORDERED: ISOVUE-370 76% 100ML VIAL As Ordered ONE (07:36)
[2019-09-15 07:42] LABS: BASO # 0.1 10^3/uL (0.0-0.2); BASO % 0.4 % (0.0-1.0); EOS # 0.3 10^3/uL (0.0-0.5); EOS % 2.1 % (0.0-3.0); HEMATOCRIT 41.5 % (36.0-47.0); HEMOGLOBIN 13.5 g/dl (12.0-15.5); LYMPH # 1.4 10^3/uL (1.5-5.0); LYMPH % 11.3 % (24.0-44.0); MEAN CORPUSCULAR HGB CONC 32.5 g/dl (32.0-36.5); MONO # 0.5 10^3/uL (0.0-0.8); NEUTROPHILS # 10.3 10^3/uL (1.5-8.5); NEUTROPHILS % 81.7 % (36.0-66.0); PLATELET COUNT, AUTOMATED 370 10^3/uL (150-450); WHITE BLOOD COUNT 12.6 10^3/uL (4.0-10.0)
[2019-09-15] MEDS: GASTROGRAFIN SOLUTION 30ML PO SCH ×2 (07:53→08:35)
[2019-09-15] MEDS ORDERED: ONDANSETRON 4MG/2ML VIAL IV ONE (10:15)
[2019-09-15] MEDS: fentaNYL 100 MCG/2 ML INJECTION (J3010) IV PRN ×2 (10:19→11:38)
[2019-09-15] MEDS ORDERED: ACETYLCHOLINE OPHTH SOLN 1% 2ML (MIOCHOL-E) As Ordered ONE (11:18)
--- NOTE | 2019-09-15 11:39 | REP ---
CT ABDOMEN AND PELVIS WITH ORAL AND IV CONTRAST: TECHNIQUE: Axial contrast-enhanced images from the lung bases to the pubic symphysis using 100 mL Isovue-370 intravenous contrast material with multiplanar reformations. Visualized lung bases demonstrate no infiltrate. No mass is seen in the liver. Spleen is unremarkable. The adrenal glands are unchanged in appearance. Pancreas demonstrates no mass. Kidneys demonstrate no hydronephrosis with probably small cysts in the lower pole of the right kidney. No adenopathy is seen. There is no free air. There is no abdominal aortic aneurysm. There is again a complex ventral hernia in the periumbilical region containing small bowel loops with associated small bowel obstruction. Transition point is again noted to be in the region of the distal ileum. There is new thickening of small bowel loops in that region and new mild fluid in the hernia sac. The degree of obstruction and small bowel dilatation has increased since the prior study of 08/19/2019. Findings of bowel thickening and increased fluid in the hernia sac raise concern for strangulation. Enlarged fibroid uterus is again noted. Urinary bladder is not well distended and not well evaluated. IMPRESSION: Small bowel obstruction caused by periumbilical complex anterior abdominal wall hernia containing small bowel loops which are now somewhat thickened with edema and fluid in the hernia sac. Findings raise the possibility of strangulation of the hernia. The degree of dilatation has increased since the prior study of 08/19/2019. Electronically Signed by Braydon Olson MD 09/16/2019 10:51 P
[2019-09-15] MEDS ORDERED: DEXTROSE 50% 50 ML SYRINGE IV PRN (12:00)
[2019-09-15] MEDS ORDERED: GLUCAGON INJ 1MG VIAL SC PRN (12:00)
[2019-09-15] MEDS ORDERED: GLUCOSE 4GM CHEW TABLET PO PRN (12:00)
--- NOTE | 2019-09-15 12:03 | HPEPDOC ---
General Date of Admission 09/15/19 Date of Service: Sep 15, 2019 Chief Complaint The patient is a 43-year-old female admitted with a reason for visit of Abd Pain. Source: Patient Exam Limitations: No limitations Timing/Duration: 24 hours Severity: Moderate Associated Symptoms: Nausea History of Present Illness Patient is 43 years old female with past medical history of obesity, hypothy roidism, bipolar disorder, incarcerated ventral hernia repair 2013 & 2016 presented hospital with abdominal pain and distention. Patient stated that for past 24-36 hours she's been having increased abdominal distention with diffuse pain associated with nausea and loss of appetite. Her last BM was yesterday. Of note patient had multiple hospitalizations in the past due to small bowel obstruction secondary possible incarcerated umbilical and spigelian hernias. In emergency room patient was found to have Small bowel obstruction caused by periumbilical complex anterior abdominal wall hernia containing small bowel loops which are now somewhat thickened with edema and fluid in the hernia sac. Findings raise the possibility of strangulation of the hernia. The degree of dilatation has increased since the prior study of 08/19/2019. NG tube with suction was placed in ER Home Medications No Active Prescriptions or Reported Meds Allergies Coded Allergies: [place] (Verified Allergy, Intermediate, RASH, 09/11/19) SEAFOOD (Verified Allergy, Intermediate, RASH, 09/11/19) shellfish derived (Verified Allergy, Intermediate, hives, 09/11/19) Past Medical History Medical History NICA BIPAP settings 20/01 History of Hypothyroidism DM A1C 10.4% in Mar Hepatomegaly Class 4 Obesity Tonsillectomy C section x1 Abortions x5 PTSD Bipolar disorder Hx of MDD with suicidal ideation requiring hospitalizations in the past Incarcerated ventral hernia repair 2013 & 2016 Elective recurrent hernia repair 2015 Surgical History Incarcerated ventral hernia repair 2013 & 2017 Elective recurrent hernia repair 2015 Tonsillectomy C section x1 Abortions x5 Family History Asthma Cervical CA Breast CA Social History * Smoker: current smoker Alcohol: Denies Drugs: marijuana, other (opiates) A-FIB/CHADSVASC A-FIB History Current/History of A-Fib/PAF?: No Current PO Anticoag Therapy: No Review of Systems Constitutional: Denies: Chills, Fever Eyes: Denies: Pain, Vision change ENT: Denies: Head Aches Skin: Denies: Rash, Lesions Pulmonary: Denies: Dyspnea, Cough Cardiovascular: Denies: Chest Pain Gastrointestinal: Reports: Nausea, Vomiting, Abdominal Pain, Constipation Genitourinary: Denies: Dysuria Hematologic: Denies: Bruising Musculoskeletal: Denies: Neck Pain Neurological: Denies: Weakness Psych: Reports: Anxiety Physical Examination General Exam: Positive: Alert, Cooperative Eye Exam: Positive: PERRLA ENT Exam: Positive: Atraumatic Neck Exam: Positive: Supple; Negative: JVD Chest Exam: Positive: Clear to auscultation Heart Exam: Positive: Tachycardic Telemetry: Positive: Sinus Abdomen Exam: Positive: BS Hyperactive, Tenderness (LLQ), Other (severe distention) Extremity Exam: Negative: Clubbing, Cyanosis Skin Exam: Positive: Nl turgor and temperature Neuro Exam: Positive: Strength at 5/5 X4 ext Psych Exam: Positive: Mental status NL Vital Signs Vital Signs Date Time Temp Pulse Resp B/P (MAP) Pulse Ox O2 Delivery O2 Flow Rate FiO2 09/15/19 11:38 20 99 09/15/19 10:19 98.3 99 148/97 Room Air Laboratory Data Labs 24H Laboratory Tests 2 09/15/19 07:28: Immature Granulocyte % (Auto) 0.5, Neutrophils (%) (Auto) 81.7H, Lymphocytes (%) (Auto) 11.3L, Monocytes (%) (Auto) 4.0, Eosinophils (%) (Auto) 2.1, Basophils (%) (Auto) 0.4, Neutrophils # (Auto) 10.3H, Lymphocytes # (Auto) 1.4L, Monocytes # (Auto) 0.5, Eosinophils # (Auto) 0.3, Basophils # (Auto) 0.1, Nucleated Red Blood Cells % (auto) 0.0, POC Glucose (Misc Panel) 353H, POC Sodium (Misc Panel) 135L, POC Potassium (Misc Panel) 3.7, POC Chloride (Misc Panel) 99, POC Total CO2 (Misc Panel) 23.0, POC Blood Urea Nitrogen (Misc Panel 15, POC Ionized Calcium (Misc Panel) 4.5, POC Creatinine (Misc Panel) 0.4L, POC Hematocrit (Misc Panel) 42.0 09/15/19 07:35: POC Lactate (Misc Panel) 1.69 CBC/BMP Laboratory Tests 09/15/19 07:28 Assessment/Plan Patient is 43 years old female with past medical history of obesity, hypo thyroidism, bipolar disorder, incarcerated ventral hernia repair 2014 & 2017 presented hospital with abdominal pain and distention. Patient stated that for past 24-36 hours she's been having increased abdominal distention with diffuse pain associated with nausea and loss of appetite. Her last BM was yesterday. Of note patient had multiple hospitalizations in the past due to small bowel obstruction secondary possible incarcerated umbilical and spigelian hernias. In emergency room patient was found to have Small bowel obstruction caused by periumbilical complex anterior abdominal wall hernia containing small bowel loops which are now somewhat thickened with edema and fluid in the hernia sac. Findings raise the possibility of strangulation of the hernia. The degree of dilatation has increased since the prior study of 08/19/2019. NG tube with suction was placed in ER Problems (1) Abdominal pain Status: Acute Problem Text: CT scan showed small bowel obstruction caused by periumbilical complex anterior abdominal wall hernia containing small bowel loops which are now somewhat thickened with edema and fluid in the hernia sac. Findings raise the possibility of strangulation of the hernia. The degree of dilatation has increased since the prior study of 08/19/2019 Appreciate/agree with surgical consult NG tube placed Pain management (2) Small bowel obstruction Problem Text: See above (3) Diabetes type 2, uncontrolled Status: Acute Problem Text: Nothing by mouth for now Insulin sliding scale CMP (4) Nausea and vomiting in adult Status: Acute Problem Text: Zofran when necessary Plan / VTE VTE Prophylaxis Ordered?: Yes KISHA HESS DO Sep 15, 2019 12:03
[2019-09-15 12:52] LABS: ALBUMIN 3.2 GM/DL (3.2-5.2); ALT/SGPT 14 U/L (12-78); BILIRUBIN,TOTAL 0.8 MG/DL (0.2-1.0); BLOOD UREA NITROGEN 15 MG/DL (7-18); CALCIUM LEVEL 8.8 MG/DL (8.5-10.1); CARBON DIOXIDE LEVEL 24 MEQ/L (21-32); CHLORIDE LEVEL 101 MEQ/L (98-107); CREATININE FOR GFR 0.63 MG/DL (0.55-1.30); GLOMERULAR FILTRATION RATE > 60.0 (>58); GLUCOSE, FASTING 329 MG/DL (70-100); POTASSIUM SERUM 3.9 MEQ/L (3.5-5.1); SODIUM LEVEL 135 MEQ/L (136-145); TOTAL PROTEIN 6.9 GM/DL (6.4-8.2)
[2019-09-15 13:10] VITALS: BP 164/98
[2019-09-15 13:16] LABS: ALBUMIN 3.3 GM/DL (3.2-5.2); ALT/SGPT 14 U/L (12-78); BILIRUBIN,TOTAL 0.8 MG/DL (0.2-1.0); BLOOD UREA NITROGEN 12 MG/DL (7-18); CALCIUM LEVEL 9.1 MG/DL (8.5-10.1); CARBON DIOXIDE LEVEL 26 MEQ/L (21-32); CHLORIDE LEVEL 100 MEQ/L (98-107); CREATININE FOR GFR 0.54 MG/DL (0.55-1.30); GLOMERULAR FILTRATION RATE > 60.0 (>58); GLUCOSE, FASTING 248 MG/DL (70-100); SODIUM LEVEL 133 MEQ/L (136-145)
[2019-09-15] MEDS: NS 1,000 ML IV SCH ×2 (13:25→22:21)
[2019-09-15] MEDS: KETOROLAC 30 MG/ML 1ML VIAL IV SCH ×2 (13:26→21:01)
[2019-09-15] MEDS: ONDANSETRON 4MG/2ML VIAL IV PRN ×3 (13:26→21:31)
[2019-09-15] MEDS ORDERED: LABETALOL 100MG/20ML VIAL IV PRN (13:30)
[2019-09-15] MEDS: HEPARIN SOD (PORCINE) 5000UNITS/ML VIAL (J1644 PER 1000UNITS) SC SCH ×2 (13:59→20:21)
[2019-09-15] MEDS: HumaLOG INSULIN (NovoLOG) PER UNIT SC SCH ×2 (13:59→17:27)
[2019-09-15 14:00] VITALS: BP 128/80
[2019-09-15] MEDS: MORPHINE 2 MG/ML 1ML VIAL (J2270) IV PRN ×2 (17:27→22:35)
[2019-09-15 22:00] VITALS: BP 130/83
[2019-09-16] MEDS: HumaLOG INSULIN (NovoLOG) PER UNIT SC SCH ×5 (00:54→23:56)
[2019-09-16] MEDS: MORPHINE 2 MG/ML 1ML VIAL (J2270) IV PRN ×4 (02:37→23:34)
[2019-09-16] MEDS: ONDANSETRON 4MG/2ML VIAL IV PRN ×5 (02:41→23:33)
[2019-09-16 06:00] VITALS: BP 133/80
[2019-09-16] MEDS: KETOROLAC 30 MG/ML 1ML VIAL IV SCH ×3 (06:24→21:15)
[2019-09-16 06:37] LABS: MEAN CORPUSCULAR HEMOGLOBIN 27.2 pg (27.0-33.0); MEAN CORPUSCULAR HGB CONC 32.6 g/dl (32.0-36.5); MEAN CORPUSCULAR VOLUME 83.7 fl (80.0-96.0); PLATELET COUNT, AUTOMATED 387 10^3/uL (150-450); RED BLOOD COUNT 5.14 10^6/uL (4.00-5.40); WHITE BLOOD COUNT 10.3 10^3/uL (4.0-10.0)
[2019-09-16 07:03] LABS: ALBUMIN 2.8 GM/DL (3.2-5.2); ALT/SGPT 13 U/L (12-78); BILIRUBIN,TOTAL 0.8 MG/DL (0.2-1.0); BLOOD UREA NITROGEN 21 MG/DL (7-18); CALCIUM LEVEL 8.8 MG/DL (8.5-10.1); CARBON DIOXIDE LEVEL 27 MEQ/L (21-32); CHLORIDE LEVEL 104 MEQ/L (98-107); CREATININE FOR GFR 0.56 MG/DL (0.55-1.30); GLOMERULAR FILTRATION RATE > 60.0 (>58); GLUCOSE, FASTING 186 MG/DL (70-100); MAGNESIUM LEVEL 1.9 MG/DL (1.8-2.4); POTASSIUM SERUM 3.8 MEQ/L (3.5-5.1); SODIUM LEVEL 139 MEQ/L (136-145)
[2019-09-16] MEDS: HEPARIN SOD (PORCINE) 5000UNITS/ML VIAL (J1644 PER 1000UNITS) SC SCH ×2 (08:44→20:38)
[2019-09-16] MEDS: NS 1,000 ML IV SCH ×2 (08:45→18:01)
[2019-09-16 14:00] VITALS: BP 147/90
--- NOTE | 2019-09-16 19:11 | IPNPDOC ---
Date Seen The patient was seen on 09/16/19. Progress Note 43 y/o F with h/o hypothyroidism, bipolar disorder, incarcerated ventral hernia repair 2013 & 2016 presented hospital with nausea, vomiting, abdominal pain and distention; was admitted for suspected bowel obstruction. Pt c/o mild diffuse abdominal pain. PHYSICAL EXAMINATION: GENERAL:comfortable, mild distress HEENT: oral mucosa moist CARDIOVASCULAR: regular rate and rhythm RESPIRATORY: clear to auscultation ABDOMINAL: soft, decreased bowel sounds EXTREMITIES: no edema NEUROLOGICAL: no focal deficit PSYCHOLOGICAL: mood normal LABORATORY DATA, IMAGING STUDIES, MICROBIOLOGY: reviewed ASSESSMENT AND PLAN: 1. Small Bowel obstruction NPO, ivf, NGT on suction pain management will f/u with general surgery 2. Hypothyroidism home meds 3. Bipolar disorder will resume home meds 4. DM type 2 insulin sliding scale VS, I&O, 24H, Fishbone Vital Signs/I&O Vital Signs Date Time Temp Pulse Resp B/P (MAP) Pulse Ox O2 Delivery O2 Flow Rate FiO2 09/16/19 18:17 18 09/16/19 14:00 98.7 85 147/90 (109) 99 Room Air I&O- Last 24 Hours up to 6 AM 09/16/19 06:00 Intake Total 0 ml Output Total 900 ml Balance -900 ml Laboratory Data 24H LABS Laboratory Tests 2 09/16/19 00:26: Bedside Glucose (Misc Panel) 267H 09/16/19 06:04: Nucleated Red Blood Cells % (auto) 0.0, Anion Gap 8, Glomerular Filtration Rate > 60.0, Calcium Level 8.8, Magnesium Level 1.9, Total Bilirubin 0.8, Aspartate Amino Transf (AST/SGOT) 7, Alanine Aminotransferase (ALT/SGPT) 13, Alkaline Phosphatase 119H, Total Protein 7.0, Albumin 2.8L, Albumin/Globulin Ratio 0.7L 09/16/19 06:16: Bedside Glucose (Misc Panel) 198H 09/16/19 11:18: Bedside Glucose (Misc Panel) 187H CBC/BMP Laboratory Tests 09/16/19 06:04 NORBERT HASTINGS MD Sep 16, 2019 19:11
[2019-09-16 22:00] VITALS: BP 112/72
[2019-09-17] MEDS: NS 1,000 ML IV SCH ×2 (04:02→14:37)
[2019-09-17] MEDS: MORPHINE 2 MG/ML 1ML VIAL (J2270) IV PRN ×2 (04:07→09:07)
[2019-09-17] MEDS: ONDANSETRON 4MG/2ML VIAL IV PRN ×3 (04:07→14:38)
[2019-09-17 06:00] VITALS: BP 112/71
[2019-09-17] MEDS: KETOROLAC 30 MG/ML 1ML VIAL IV SCH ×2 (06:04→14:38)
[2019-09-17] MEDS: HumaLOG INSULIN (NovoLOG) PER UNIT SC SCH ×3 (06:20→18:00)
[2019-09-17] MEDS: HEPARIN SOD (PORCINE) 5000UNITS/ML VIAL (J1644 PER 1000UNITS) SC SCH (09:06)
--- NOTE | 2019-09-17 10:29 | IPNPDOC ---
Text Note Date of Service The patient was seen on 09/17/19. NOTE No acute events overnight. She is still passing flatus, but no BM yet. Pain is improved, but she does still have pain and some bloating in the mid abdomen. No problems with fevers or chills, and she is ambulating in the halls. VSSAF NAD abd - soft, obese, slight tenderness in the mid abdomen with a large ventral hernia and loss of domain. There are audible bowel sounds with palpation of the abdomen. A) 43y/o female with loss of domain secondary to multiple previous abdominal wall surgeries. She now has some partial vs. complete bowel obstruction secondary to adhesions within this large ventral hernia. P) sips and chips NGT to LIS ambulate await for return of bowel function, if no improvement by sunday then she may need an operation to relieve the obstruction, but that won't fix the hernia. Ahsan Cox DO VS,Fishbone, I+O VS, Fishbone, I+O Vital Signs Date Time Temp Pulse Resp B/P (MAP) Pulse Ox O2 Delivery O2 Flow Rate FiO2 09/17/19 09:07 16 Room Air 09/17/19 06:00 97.4 75 112/71 (85) 96 I&O- Last 24 Hours up to 6 AM 09/17/19 06:00 Intake Total 2050 ml Output Total 1725 ml Balance 325 ml JODY COX DO Sep 17, 2019 10:29
--- NOTE | 2019-09-17 15:36 | IPNPDOC ---
Date Seen The patient was seen on 09/17/19. Progress Note 43 y/o F with h/o hypothyroidism, bipolar disorder, incarcerated ventral hernia repair 2013 & 2016 presented hospital with nausea, vomiting, abdominal pain and distention; was admitted for suspected bowel obstruction. Over the night pt required iv pain meds Pt c/o mild diffuse abdominal pain. Denied nausea PHYSICAL EXAMINATION: GENERAL:comfortable, mild distress HEENT: oral mucosa moist CARDIOVASCULAR: regular rate and rhythm RESPIRATORY: clear to auscultation ABDOMINAL: soft, decreased bowel sounds EXTREMITIES: no edema NEUROLOGICAL: no focal deficit PSYCHOLOGICAL: mood normal LABORATORY DATA, IMAGING STUDIES, MICROBIOLOGY: reviewed ASSESSMENT AND PLAN: 1. Small Bowel obstruction NPO, ivf, NGT on suction pain management General surgery recommendations appreciated- if pt does not improve by Sunday- she might require surgery will f/u with general surgery 2. Hypothyroidism home meds 3. Bipolar disorder will resume home meds 4. DM type 2 insulin sliding scale Pt is walking around VS, I&O, 24H, Fishbone Vital Signs/I&O Vital Signs Date Time Temp Pulse Resp B/P (MAP) Pulse Ox O2 Delivery O2 Flow Rate FiO2 09/17/19 09:20 16 Room Air 09/17/19 06:00 97.4 75 112/71 (85) 96 I&O- Last 24 Hours up to 6 AM 09/17/19 06:00 Intake Total 2050 ml Output Total 1725 ml Balance 325 ml Laboratory Data 24H LABS Laboratory Tests 2 09/16/19 16:50: Bedside Glucose (Misc Panel) 161H 09/16/19 23:34: Bedside Glucose (Misc Panel) 141H 09/17/19 05:33: Bedside Glucose (Misc Panel) 172H 09/17/19 11:21: Bedside Glucose (Misc Panel) 104 NORBERT HASTINGS MD Sep 17, 2019 15:36
[2019-09-17] MEDS ORDERED: MOM 30ML SUSPENSION UDC PO PRN (16:30)
[2019-09-17] MEDS ORDERED: hydrOXYzine 50 MG TAB NG PRN (17:00)
--- NOTE | 2019-09-17 21:36 | CR ---
DATE OF CONSULTATION: 09/16/2019 CHIEF COMPLAINT: Bowel obstruction. HISTORY OF PRESENT ILLNESS: Patient is a 43-year-old female with a history of obesity, multiple ventral hernia repairs and loss of domain of her abdomen who presents to the hospital with recurrent abdominal pains and distension. She has been seen by myself as well as my partners multiple times for the same issue in the past, typically she either leaves from the emergency room or leaves after she is admitted to the hospital AMA prior to us being able to do anything for her. During this ER visit, she claims that the pains have been going on for about 24-36 hours. She has had increased ambulation in the past day prior to her coming to the hospital which may have led to this hernia being worse. In the ER, CT was obtained that showed a complex abdominal wall hernia with small bowel loops that were somewhat thickened with edema and fluid in the hernia sac raising concerns for strangulation. She had an NG tube placed in the ER and since her labs were all normal and she was non-peritoneal I saw her the following morning, 09/16/2019. When I saw her, she was already starting to have some improvement. She was already passing gas. NG tube output has been about 800 overnight, sort of brown fluid. No blood in it. She has not had any bowel movements since coming to the hospital. Her belly pain is improved and her distention is already starting to improve as well. PAST MEDICAL HISTORY: Sleep apnea, hypothyroidism, uncontrolled diabetes, hepatomegaly, obesity, bipolar. PAST SURGICAL HISTORY: Tonsillectomy, section, times five, incarcerated ventral hernia repairs in 2013 and 2016, and elective recurrent hernia repair in 2014. ALLERGIES: [place], seafood and shellfish. FAMILY HISTORY: Noncontributory. SOCIAL HISTORY: She smokes a pack a day. Denies drug or alcohol abuse. REVIEW OF SYSTEMS: Pertinent positives and negatives as stated in the HPI. PHYSICAL EXAMINATION: General: Patient is alert and oriented times, in no acute distress. Vital signs: Temperature 98.8, pulse 96, respirations 18, blood pressure 133/80, pulse oximetry 97% room air. HEENT: Pupils equally round and reactive to light and accommodation. Heart: S1, S2, regular rate and rhythm. Lungs: Clear to auscultation bilaterally. Abdomen: Soft, obese. There is loss of domain around the mid abdomen. There is a ventral hernia within this loss of domain area as well. There is palpable bowel loops within this area and audible gurgling with palpation. Tenderness is mainly in this area only. Extremities: There is bilateral lower extremity pitting edema. LABORATORY DATA: White count 10.3, is down from 12.6 on admission, hemoglobin 14, platelets 387, creatinine is 0.56. LFTs within normal range. Albumin 2.8. IMAGING STUDIES: CT abdomen and pelvis showed small bowel obstruction due to a periumbilical complex anterior abdominal wall hernia containing small bowel loops that now somewhat thickened with edema and fluid in the hernia sac. Findings raise suspicion of strangulation. ASSESSMENT/PLAN: The patient is a 43-year-old female with a complex ventral abdominal wall hernia as well as some loss of domain with small bowel loops within it that are likely obstruction due to adhesions within the hernia sac itself. The hernia neck is too large to be causing incarceration specifically. She has been a very complex patient. She has left AMA in the past prior to having her surgery done to prevent this from coming back. She was also advised at one point to followup in [place] and she never did that as well. At this point her diabetes is out of control. Recommendation is to treat her medically with NG tube decompression, IV fluids and see if we can relieve this obstruction. If she is unsuccessful relieving it medically, then plan will be for likely lysis of adhesions, possible laparotomy at the end of the week to repair the obstruction. However, her hernia repair will require a much larger operation. I did speak with Dr. Sanchez, he is willing to inject some Botox into the muscles in her abdominal wall and to consider doing an open ventral hernia repair on her in the future. However, as I already explained to her, she will need to get her medical issues well under control and become compliant with her therapy prior to that surgery being scheduled.
--- NOTE | 2019-09-18 18:03 | DS.PDOC ---
Discharge Summary General Date of Admission Sep 15, 2019 at 11:26 Date of Discharge AMA on 09/17/19 Discharge Summary 43 y/o F with h/o hypothyroidism, bipolar disorder, incarcerated ventral hernia repair 2013 & 2016 presented hospital with nausea, vomiting, abdominal pain and distention; was admitted for suspected bowel obstruction. We were informed by nursing staff that patient signed out AMA on 09/17/19. Pt did not wait for paperwork and did not want to wait for us before we could see her. Pt was not seen at the time when she left AMA. As per nursing staff pt was feeling fine, was AAO x3 and did not have any complaint so she left the hospital. This discharge summary is for completion of medical documentation. Vital Signs/I&Os Vital Signs Date Time Temp Pulse Resp B/P (MAP) Pulse Ox O2 Delivery O2 Flow Rate FiO2 09/17/19 09:20 16 Room Air 09/17/19 06:00 97.4 75 112/71 (85) 96 I&O- Last 24 Hours up to 6 AM 09/18/19 06:00 Intake Total 1180 ml Output Total 1800 ml Balance -620 ml Discharge Medications No Active Prescriptions or Reported Meds Allergies Coded Allergies: [place] (Verified Allergy, Intermediate, RASH, 09/11/19) SEAFOOD (Verified Allergy, Intermediate, RASH, 09/11/19) shellfish derived (Verified Allergy, Intermediate, hives, 09/11/19) NORBERT HASTINGS MD Sep 18, 2019 18:03
== END 2019-09-17 18:35 | disposition left against medical advice (07) | DRG 389 ==
LOC: M ED 07:05 → EDBD 07:05 → M ED INP 11:26 → ENRESERV 11:49 → M MSPAV 13:06
PROVIDERS: ADMIT Internal Medicine; ATTEND Internal Medicine
DX: K56.50 Intestinal adhesions [bands], unspecified as to partial versus complete obstruction (principal); K43.6 Other and unspecified ventral hernia with obstruction, without gangrene; E11.9 Type 2 diabetes mellitus without complications; F31.9 Bipolar disorder, unspecified; F43.10 Post-traumatic stress disorder, unspecified; F17.210 Nicotine dependence, cigarettes, uncomplicated; G47.33 Obstructive sleep apnea (adult) (pediatric); E03.9 Hypothyroidism, unspecified; Z91.013 Allergy to seafood; Z91.018 Allergy to other foods; E66.9 Obesity, unspecified

== ENCOUNTER 2019-09-24 18:52 | Emergency (ER) | payer MEDICARE, MEDICAID ==
[~2019-09-24] VITALS: Ht 157.5 cm; Wt 100.0 kg
[2019-09-24] MEDS ORDERED: ONDANSETRON 4 MG ORAL DISINTEGRATING TAB PO ONE (19:45)
[2019-09-24] MEDS ORDERED: ONDA4TAB6 PO (20:59)
[2019-09-24 21:14] VITALS: BP 133/72
== END 2019-09-24 21:18 | disposition home or self-care (01) ==
LOC: EDBD 18:52 → M ED 18:52
DX: K56.609 Unspecified intestinal obstruction, unspecified as to partial versus complete obstruction (principal); E11.9 Type 2 diabetes mellitus without complications; G43.909 Migraine, unspecified, not intractable, without status migrainosus; G47.30 Sleep apnea, unspecified; F31.9 Bipolar disorder, unspecified; F19.11 Other psychoactive substance abuse, in remission; F17.210 Nicotine dependence, cigarettes, uncomplicated; Z91.013 Allergy to seafood; Z91.018 Allergy to other foods

== ENCOUNTER 2019-12-21 10:53 | Emergency (ER) | payer MEDICARE, MEDICAID ==
[~2019-12-21] VITALS: Ht 157.5 cm; Wt 98.6 kg
[~2019-12-21 10:53] MED LIST changes: +ONDA4TAB6 PO
[2019-12-21 11:04] VITALS: BP 127/86
[2019-12-21] MEDS ORDERED: AMOX875T (11:07)
== END 2019-12-21 12:32 | disposition home or self-care (01) ==
LOC: EDBD 10:53 → M ED 10:53
DX: H61.21 Impacted cerumen, right ear (principal); E11.9 Type 2 diabetes mellitus without complications; E03.9 Hypothyroidism, unspecified; G47.33 Obstructive sleep apnea (adult) (pediatric); F31.9 Bipolar disorder, unspecified; Z91.013 Allergy to seafood; Z91.018 Allergy to other foods

== ENCOUNTER 2020-01-31 11:14 | Emergency (ER) | payer MEDICARE, MEDICAID ==
[~2020-01-31] VITALS: Ht 157.5 cm; Wt 98.6 kg
[2020-01-31] MEDS ORDERED: NS 1,000 ML IV SCH (11:28)
[2020-01-31] MEDS ORDERED: MORPHINE 4 MG/ML 1ML VIAL/SYRINGE (J2270) IV PRN (11:30)
[2020-01-31] MEDS ORDERED: METOCLOPRAMIDE INJ 10MG/2ML VIAL (J2765 PER 1) IV ONE (11:30)
[2020-01-31 12:00] LABS: BASO # 0.1 10^3/uL (0.0-0.2); BASO % 0.6 % (0.0-1.0); EOS # 0.3 10^3/uL (0.0-0.5); HEMATOCRIT 41.1 % (36.0-47.0); HEMOGLOBIN 13.4 g/dl (12.0-15.5); LYMPH # 1.7 10^3/uL (1.5-5.0); MEAN CORPUSCULAR HEMOGLOBIN 28.5 pg (27.0-33.0); MEAN CORPUSCULAR HGB CONC 32.6 g/dl (32.0-36.5); MEAN CORPUSCULAR VOLUME 87.3 fl (80.0-96.0); MONO # 0.4 10^3/uL (0.0-0.8); MONO % 5.1 % (0.0-5.0); NEUTROPHILS # 5.5 10^3/uL (1.5-8.5); NEUTROPHILS % 68.8 % (36.0-66.0); PLATELET COUNT, AUTOMATED 280 10^3/uL (150-450); RED BLOOD COUNT 4.71 10^6/uL (4.00-5.40); WHITE BLOOD COUNT 7.9 10^3/uL (4.0-10.0)
[2020-01-31 12:16] LABS: INR 0.81; PROTHROMBIN TIME 11.4 SECONDS (12.5-14.3)
[2020-01-31 12:30] LABS: ALBUMIN 3.3 GM/DL (3.2-5.2); ALT/SGPT 12 U/L (12-78); BILIRUBIN,DIRECT < 0.1 MG/DL (0.0-0.2); BILIRUBIN,TOTAL 0.4 MG/DL (0.2-1.0); LIPASE 192 U/L (73-393); TOTAL PROTEIN 6.8 GM/DL (6.4-8.2)
[2020-01-31] MEDS ORDERED: ISOVUE-370 76% 100ML VIAL As Ordered ONE (13:11)
--- NOTE | 2020-01-31 13:54 | ECGEPIP ---
[facility] - ED Test Date: 2020-01-31 Pat Name: ARNOLDO CLAROS Department: Room: - Gender: Female Superintendent Police: ONRRIS : 1975 Requested By: Audelia Albrecht Order Number: [id number] Reading MD: Audelia Albrecht Measurements Intervals [place] Rate: 76 P: 47 WI: 165 QRS: -13 QRSD: 101 T: 50 QT: 389 QTc: 439 Interpretive Statements SINUS RHYTHM NSTTW abnormalities SIMILAR 01/09/19 Electronically Signed on 01-31-2020 13:53:53 EST by Audelia Albrecht
--- NOTE | 2020-01-31 13:56 | REP ---
INDICATION: abd pain. COMPARISON: 09/15/2019 TECHNIQUE: Axial contrast-enhanced images from the lung bases to the pubic symphysis using 100 cc Isovue 370 intravenous contrast material. Coronal and sagittal reformations obtained. This CT examination was performed using the following dose reduction techniques: Automated exposure control, adjustment of mA and/or kv according to the patient's size, and the use of iterative reconstruction technique. FINDINGS: A large broad-based ventral hernia containing mesenteric fat, multiple loops of small bowel, inflammatory stranding, and stable apparent ovoid fluid collection measuring roughly 8.0 x 4.1 cm diameter and 8.4 cm in craniocaudal length are again noted. The bowel loops demonstrate mild enhancement and mild fluid filled prominence with an exiting portion of the distal/terminal ileum at the right lower edge of the hernia appearing collapsed. Large bowel demonstrates moderate fecal stasis. There is no evidence for free air or significant ascites. Liver, spleen, pancreas, gallbladder, bilateral adrenal glands and kidneys are normal. Pelvis demonstrates a markedly enlarged multilobular myomatous uterus measuring greater than 17 x 14 x 14 cm. Bladder appears normal. No pelvic free fluid. Abdominal aorta without aneurysm or dissection. No significant adenopathy. However, mildly prominent inguinal lymph nodes measure up to 10 mm. Osseous structures are intact. Lung base demonstrate minimal posterior basilar dependent changes. Visualized portions of the heart and pericardium are normal. IMPRESSION: 1. Large complex ventral hernia containing mesenteric fat stranding as well as mildly prominent fluid-filled loops of small bowel with the exiting distal/terminal ileum at the right lower edge appearing collapsed raising the possibility of partial/early obstruction. There is a somewhat ovoid stable fluid collection within the hernia unchanged from prior examination and suggesting abscess versus seroma. 2. Significantly enlarged myomatous uterus. <Electronically signed by Diaz Matthew > 01/31/20 [id number]
[2020-01-31 14:46] VITALS: BP 122/84
--- NOTE | 2020-02-02 11:10 | ED PDOC ---
Post-Departure Follow-Up dr cordero faxed formal report of ct abd/p for fu Jose Larios MD Feb 02, 2020 11:10
== END 2020-01-31 14:50 | disposition left against medical advice (07) ==
LOC: M ED 11:14 → EDBD 11:14 → M ED 14:50
DX: K43.9 Ventral hernia without obstruction or gangrene (principal); N85.2 Hypertrophy of uterus; R11.2 Nausea with vomiting, unspecified; Z53.9 Procedure and treatment not carried out, unspecified reason; E03.9 Hypothyroidism, unspecified; G47.30 Sleep apnea, unspecified; F43.10 Post-traumatic stress disorder, unspecified; F31.9 Bipolar disorder, unspecified; F17.200 Nicotine dependence, unspecified, uncomplicated; Z91.013 Allergy to seafood; Z91.018 Allergy to other foods
CPT/HCPCS: 74177; 80047; 80076; 83605; 83690; 85025; 85610; 93005; 93041; 96374; 96375; 99285; J2270; J2765; Q9967

== ENCOUNTER 2020-02-07 08:34 | Emergency (ER) | payer MEDICARE, MEDICAID ==
[2020-02-07] MEDS ORDERED: MORPHINE 4 MG/ML 1ML VIAL/SYRINGE (J2270) IV PRN (09:00)
[2020-02-07 09:18] LABS: BASO # 0.1 10^3/uL (0.0-0.2); BASO % 0.6 % (0.0-1.0); EOS # 0.3 10^3/uL (0.0-0.5); EOS % 3.1 % (0.0-3.0); HEMATOCRIT 42.5 % (36.0-47.0); HEMOGLOBIN 13.9 g/dl (12.0-15.5); LYMPH # 1.5 10^3/uL (1.5-5.0); LYMPH % 15.3 % (24.0-44.0); MEAN CORPUSCULAR HEMOGLOBIN 28.6 pg (27.0-33.0); MEAN CORPUSCULAR HGB CONC 32.7 g/dl (32.0-36.5); MEAN CORPUSCULAR VOLUME 87.4 fl (80.0-96.0); MONO # 0.4 10^3/uL (0.0-0.8); MONO % 4.2 % (0.0-5.0); NEUTROPHILS # 7.3 10^3/uL (1.5-8.5); NEUTROPHILS % 76.4 % (36.0-66.0); PLATELET COUNT, AUTOMATED 315 10^3/uL (150-450); RED BLOOD COUNT 4.86 10^6/uL (4.00-5.40); WHITE BLOOD COUNT 9.6 10^3/uL (4.0-10.0)
[2020-02-07] MEDS ORDERED: NS 500 ML IV ONE (10:00)
[2020-02-07] MEDS ORDERED: ONDANSETRON 4MG/2ML VIAL IV ONE (10:00)
[2020-02-07 10:02] LABS: ALBUMIN 3.4 GM/DL (3.2-5.2); ALT/SGPT 14 U/L (12-78); BILIRUBIN,DIRECT 0.2 MG/DL (0.0-0.2); BILIRUBIN,TOTAL 0.7 MG/DL (0.2-1.0); BLOOD UREA NITROGEN 10 MG/DL (7-18); CALCIUM LEVEL 8.9 MG/DL (8.5-10.1); CARBON DIOXIDE LEVEL 27 MEQ/L (21-32); CHLORIDE LEVEL 104 MEQ/L (98-107); CK-MB VALUE MASS < 1.0 NG/ML (<3.6); CPK CREATINE PHOSPHOKINASE 22 U/L (26-192); CREATININE FOR GFR 0.56 MG/DL (0.55-1.30); GLOMERULAR FILTRATION RATE > 60.0 (>58); GLUCOSE, FASTING 240 MG/DL (70-100); LIPASE 120 U/L (73-393); MB/CK RELATIVE INDEX 4.55 (< OR =4); SODIUM LEVEL 138 MEQ/L (136-145); TOTAL PROTEIN 6.7 GM/DL (6.4-8.2); TROPONIN I < 0.02 NG/ML (< 0.10)
[2020-02-07] MEDS ORDERED: ISOVUE-370 76% 100ML VIAL As Ordered ONE (10:14)
[2020-02-07 10:30] VITALS: BP 136/74
--- NOTE | 2020-02-07 11:00 | REP ---
INDICATION: vomiting with LUQ abd pain, r/o obstruction. COMPARISON: Comparison CT study January 31, 2020.. TECHNIQUE: Helical scanning was acquired and 4 mm axial images are re-formatted. Coronal and sagittal MPR images were generated and reviewed. The contrast enhancement dose is 100 mL of intravenous Isovue 370. FINDINGS: Preliminary digital acquisition lead radiograph demonstrates a calcified uterine myoma to the right of midline in the pelvis. Bowel gas pattern is unremarkable. The lung bases are clear on axial CT images. There is mild diffuse fatty infiltration of the liver. The liver is at the upper range of normal in size unchanged. No focal hepatic lesion is seen. No abnormality is noted in the gallbladder. The spleen is homogeneous and unremarkable. No adrenal mass is seen. No abnormality is noted in the pancreas. The kidneys enhance symmetrically and are morphologically intact. There is a complex ventral hernia again noted trans Sneed multiple loops of small bowel. These loops within and adjacent to the complex ventral hernia are seen to be dilated. The distal ileum exits the right-side of the complex ventral hernia and is normal in caliber. The colon is not dilated. There is mild mural thickening in the dilated small bowel loops and a small bowel content appears to be somewhat fecalized. There is evidence of a see [place] associated with the ventral hernia is well containing some mural calcification in its wall. This is seroma cavity measures 7.1 x 3.5 by 10.4 cm in overall dimension. The complex ventral hernia findings are similar to the prior study but there is more dilation and mural thickening in the involved small bowel loops today. There is no evidence of free intraperitoneal air. Markedly enlarged myomatous uterus again seen unchanged and filling most of the pelvis. There is a 3.1 cm cyst in the right ovary. Urinary bladder is unremarkable. There is left colonic diverticulosis without CT evidence of diverticulitis. There is mild to moderate stool throughout the colon. No bony destructive lesion. IMPRESSION: Complex ventral hernia transmitting several loops of mid small bowel. Several of these loops appear obstructed with mural thickening and fecalization of contents suggesting some degree of chronicity. The distal-most ileum exits the hernia and is normal in caliber. The proximal jejunum is normal in caliber. There is a fluid collection consistent with a chronic seroma in the complex hernia again noted unchanged as above, 10.4 cm in greatest diameter. Markedly enlarged myomatous uterus is again seen. There is some fatty infiltration of the liver. <Electronically signed by Ignacio Godfrey > 02/07/20 [id number]
[2020-02-07 12:36] LABS: HCG, SERUM QUALITATIVE NEGATIVE (NEGATIVE)
--- NOTE | 2020-02-07 16:49 | ECGEPIP ---
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
== END 2020-02-07 11:47 | disposition left against medical advice (07) ==
LOC: EDBD 08:34 → M ED 08:34
DX: K56.699 Other intestinal obstruction unspecified as to partial versus complete obstruction (principal); Z53.20 Procedure and treatment not carried out because of patient's decision for unspecified reasons; E03.9 Hypothyroidism, unspecified; E11.9 Type 2 diabetes mellitus without complications; F17.200 Nicotine dependence, unspecified, uncomplicated; F31.9 Bipolar disorder, unspecified; F32.9 Major depressive disorder, single episode, unspecified; F43.10 Post-traumatic stress disorder, unspecified; G47.33 Obstructive sleep apnea (adult) (pediatric); Z91.013 Allergy to seafood; Z91.018 Allergy to other foods

== ENCOUNTER 2020-02-07 21:43 | Inpatient (IN) | payer MEDICARE, MEDICAID ==
[~2020-02-07] VITALS: Ht 157.5 cm; Wt 99.7 kg
[2020-02-07 22:38] LABS: BASO # 0.1 10^3/uL (0.0-0.2); BASO % 0.4 % (0.0-1.0); EOS # 0.2 10^3/uL (0.0-0.5); EOS % 1.8 % (0.0-3.0); HEMOGLOBIN 14.6 g/dl (12.0-15.5); LYMPH # 1.2 10^3/uL (1.5-5.0); LYMPH % 9.7 % (24.0-44.0); MEAN CORPUSCULAR HEMOGLOBIN 29.2 pg (27.0-33.0); MEAN CORPUSCULAR HGB CONC 33.2 g/dl (32.0-36.5); MONO # 0.5 10^3/uL (0.0-0.8); MONO % 4.5 % (0.0-5.0); NEUTROPHILS # 9.9 10^3/uL (1.5-8.5); NEUTROPHILS % 83.3 % (36.0-66.0); PLATELET COUNT, AUTOMATED 302 10^3/uL (150-450); WHITE BLOOD COUNT 11.9 10^3/uL (4.0-10.0)
[2020-02-07 23:12] LABS: ALBUMIN 3.3 GM/DL (3.2-5.2); ALT/SGPT 13 U/L (12-78); BILIRUBIN,DIRECT 0.2 MG/DL (0.0-0.2); BILIRUBIN,TOTAL 0.6 MG/DL (0.2-1.0); BLOOD UREA NITROGEN 10 MG/DL (7-18); CALCIUM LEVEL 8.7 MG/DL (8.5-10.1); CARBON DIOXIDE LEVEL 26 MEQ/L (21-32); CHLORIDE LEVEL 102 MEQ/L (98-107); CREATININE FOR GFR 0.68 MG/DL (0.55-1.30); GLOMERULAR FILTRATION RATE > 60.0 (>58); GLUCOSE, FASTING 317 MG/DL (70-100); LIPASE 76 U/L (73-393); POTASSIUM SERUM 3.7 MEQ/L (3.5-5.1); SODIUM LEVEL 135 MEQ/L (136-145); TOTAL PROTEIN 6.6 GM/DL (6.4-8.2)
[2020-02-07] MEDS ORDERED: NS 1,000 ML IV ONE (23:15)
[2020-02-07] MEDS ORDERED: ONDANSETRON 4MG/2ML VIAL IV ONE (23:30)
[2020-02-08] MEDS ORDERED: MORPHINE 4 MG/ML 1ML VIAL/SYRINGE (J2270) IV PRN (01:15)
--- NOTE | 2020-02-08 01:38 | HPEPDOC ---
[facility] Medical History & Physical Date of Admission Feb 08, 2020 Date of Service: Feb 08, 2020 Attending Physician: MATTHEW CABAN MD History and Physical CHIEF COMPLAINT: abdominal pain HISTORY OF PRESENT ILLNESS: Carla Ramirez is a 44 YO F with history of NICA, DM2 and ventral hernia repair frequently hospitalized with small bowel obstruction who presents this evening to the ED for abdominal pain. She first presented in the morning on 02/07/20 but left AMA. She states that for the past few hours she has had cramping abdominal pain worse in her left lower abdomen. The pain does not radiate. She has not noticed any redness or swelling in her abdomen. She has not eaten a full meal in more than 24 hours but has been eating small amounts and vomiting shortly after eating. She denies any diarrhea or constipation, stating that she has been passing gas, burping and having normal bowel movements. She denies any recent fevers, chills, or weight loss. In the ED, she underwent CT abd/pelvis with findings concerning for small bowel obstruction. PAST MEDICAL HISTORY: Frequent hospitalization sor SBP s/p ventral hernia repair NICA BIPAP settings 20/01 Hypothyroidism DM2, non-insulin dependent Hepatomegaly Class 4 Obesity PTSD Bipolar disorder Hx of MDD with suicidal ideation requiring hospitalizations in the past ?History of childhood lymphoma? PAST SURGICAL HISTORY: Tonsillectomy C section x1 Abortions x5 Incarcerated ventral hernia repair 2013 & 2017 Elective recurrent hernia repair 2014 SOCIAL HISTORY: Smokes 1/2 ppd. Denies EtOH. Denies other drugs but has history of Marijuana and opiate abuse Lives in [place]. Unemployed FAMILY HISTORY: Asthma Cervical Cancer Breast Cancer ALLERGIES: Please see below. REVIEW OF SYSTEMS: Constitutional: No Weight Change, No Fever, No Chills, No Night Sweats, No Fatigue, No Malaise ENT/Mouth: No Hearing Changes, No Ear Pain, No Nasal Congestion, No Sinus Pain, No Hoarseness, No sore throat, No Rhinorrhea, No Swallowing Difficulty Eyes: No Eye Pain, No Swelling, No Redness, No Foreign Body, No Discharge, No Vision Changes Cardiovascular: No Chest Pain, No SOB, No PND, No Dyspnea on Exertion, No Orthopnea, No Claudication, No Edema, No Palpitations Respiratory: No Cough, No Wheezing, No Dyspnea Gastrointestinal: Reports nausea/vomiting clear liquid after eating, cramping abdominal pain in llq, no diarrhea/no constipation Genitourinary: No Dysuria Musculoskeletal: No Arthralgias, No Myalgias, No Joint Swelling, No Joint Stiff ness, No Back Pain, No Neck Pain Skin: No Skin Lesions, No Pruritis, No Hair Changes, No Breast/Skin Changes, No Nipple Discharge Neuro: No Weakness, No Numbness, No Paresthesias, No Loss of Consciousness, No Syncope, No Dizziness, No Headache, No Coordination Changes, No Recent Falls Psych: No Anxiety/Panic, No Depression, No Insomnia, No Personality Changes, No Delusions Heme/Lymph: No Bruising, No Bleeding, No Transfusions History, No Lymphadenopathy Endocrine: No Polyuria, No Polydipsia, No Temperature Intolerance HOME MEDICATIONS: Please see below. PHYSICAL EXAMINATION: VITAL SIGNS: see below GENERAL: morbidly obese, alert and oriented, in no apparent distress, actively dry heaving but conversant in full sentences. HEENT: PERRL, EOMI, Oral mucous membranes are dry without lesions. NECK: The patient has no noted JVD. No adenopathy is appreciated. No thyromegaly CHEST/LUNGS: Lungs are clear bilaterally without rhonchi, rales, or wheezes. There is no subcutaneous air appreciated. There is no tenderness to the chest wall. HEART:Regular rate and rhythm. No murmurs, rubs, or gallops are appreciated. Distal pulses are 2+. No carotid bruits appreciated. ABDOMEN: There is a large left lower quadrant hernia noted with bowel sounds present. No signs of incarcerated hernia. There is pain to deep palpation in the left lower quadrant only. Large healed midline scar. No discernable masses/organomegaly EXTREMITIES: No peripheral edema. There is no focal long bone tenderness or d eformity. SKIN: The patients skin is warm and dry, without rashes or lesions. PSYCHIATRIC: AAO x 3, normal mood/affect NEUROLOGIC: The patient has 5/5 strength to the upper and lower extremities bila terally. Sensation is intact throughout. Deep tendon reflexes are 2+ in all four extremities. There are no deficits to the cranial nerves. LABORATORY DATA: See below. IMAGING: CT ABD/PEL 02/07/20: FINDINGS: Preliminary digital paper baler radiograph demonstrates a calcified uterine myoma to the right of midline in the pelvis. Bowel gas pattern is unremarkable. The lung bases are clear on axial CT images. There is mild diffuse fatty infiltration of the liver. The liver is at the upper range of normal in size unchanged. No focal hepatic lesion is seen. No abnormality is noted in the gallbladder. The spleen is homogeneous and unremarkable. No adrenal mass is seen. No abnormality is noted in the pancreas. The kidneys enhance symmetrically and are morphologically intact. There is a comp linda ventral hernia again noted trans Sneed multiple loops of small bowel. These loops within and adjacent to the complex ventral hernia are seen to be dilated. The distal ileum exits the right-side of the complex ventral hernia and is normal in caliber. The colon is not dilated. There is mild mural thickening in the dilated small bowel loops and a small bowel content appears to be somewhat fecalized. There is evidence of a [place] associated with the ventral hernia is well containing some mural calcification in its wall. This is seroma cavity measures 7.1 x 3.5 by 10.4 cm in overall dimension. The complex ventral hernia findings are similar to the prior study but there is more dilation and mural thickening in the involved small bowel loops today. There is no evidence of free intraperitoneal air. Markedly enlarged myomatous uterus again seen unchanged and filling most of the pelvis. There is a 3.1 cm cyst in the right ovary. Urinary bladder is unremarkable. There is left colonic diverticulosis without CT evidence of diverticulitis. There is mild to moderate stool throughout the colon. No bony destructive lesion. IMPRESSION: Complex ventral hernia transmitting several loops of mid small bowel. Several of these loops appear obstructed with mural thickening and fecalization of contents suggesting some degree of chronicity. The distal-most ileum exits the hernia and is normal in caliber. The proximal jejunum is normal in caliber. There is a fluid collection consistent with a chronic seroma in the complex hernia again noted unchanged as above, 10.4 cm in greatest diameter. Markedly enlarged myomatous uterus is again seen. There is some fatty infiltration of the liver. MICROBIOLOGY: Please see below. ASSESSMENT: This is a 44 YO F with history of DM2, NICA, frequent hospitalizations for SBO s/p ventral hernia repair who presents to ED with cramping abdominal pain and nausea found to have mild leukocytosis and possible SBO on imaging. PLAN: 1. SBO: leukocytosis with leftward shift, electrolytes WNL -CT Abd/pel demonstrates dilated loops of bowel surrounding ventral hernia and thickening in the dilated small bowel loops concerning for obstruction -Dr. Sanchez consulted in ED. Recommends NG tube placement and medical management. Will see patient in AM. -Zofran for nausea -IV morphine for pain -NPO for now and NGT in place -NS 100cc/hr continuous -Will start empiric Zosyn 2. DM2: last A1c 10% -SSI with hypoglycemic protocol 3. History of hypothyroidism: -TSH/T4 pending DVT ppx: TEDs/SCDs DISPO:pending clinical improvement, surgery consultation Vital Signs Vital Signs Date Time Temp Pulse Resp B/P (MAP) Pulse Ox O2 Delivery O2 Flow Rate FiO2 02/07/20 23:28 170/109 (129) 02/07/20 21:51 96.8 100 20 97 Room Air Laboratory Data Labs 24H Laboratory Tests 2 02/07/20 22:22: Immature Granulocyte % (Auto) 0.3, Neutrophils (%) (Auto) 83.3H, Lymphocytes (%) (Auto) 9.7L, Monocytes (%) (Auto) 4.5, Eosinophils (%) (Auto) 1.8, Basophils (%) (Auto) 0.4, Neutrophils # (Auto) 9.9H, Lymphocytes # (Auto) 1.2L, Monocytes # (Auto) 0.5, Eosinophils # (Auto) 0.2, Basophils # (Auto) 0.1, Nucleated Red Blood Cells % (auto) 0.0, Urine Color YELLOW, Urine Appearance HAZY, Urine pH 5.0, Urine Specific [place] 1.044, Urine Protein NEGATIVE, Urine Glucose (UA) 3+H, Urine Ketones 1+H, Urine Blood 3+H, Urine Nitrite NEGATIVE, Urine Bilirubin NEGATIVE, Urine Urobilinogen 0.2, Urine Leukocyte Esterase NEGATIVE, Urine WBC (Auto) 0, Urine RBC (Auto) 5H, Urine Hyaline Casts (Auto) 0, Urine Bacteria (Auto) NEGATIVE, Urine Squamous Epithelial Cells 3, Urine Mucus (Auto) SMALL, Urine Sperm (Auto) , Anion Gap 7L, Glomerular Filtration Rate > 60.0, Calcium Level 8.7, Total Bilirubin 0.6, Direct Bilirubin 0.2, Aspartate Amino Transf (AST/SGOT) < 3L, Alanine Aminotransferase (ALT/SGPT) 13, Alkaline Phosphatase 98, Total Protein 6.6, Albumin 3.3, Albumin/Globulin Ratio 1.0L, Lipase 76 12/6/20 00:53: CBC/BMP Laboratory Tests 02/07/20 22:22 Home Medications No Active Prescriptions or Reported Meds Allergies Coded Allergies: shellfish derived (Verified Allergy, Intermediate, hives, 09/11/19) [place] (Verified Allergy, Mild, RASH, 02/07/20) SEAFOOD (Verified Allergy, Mild, RASH, 02/07/20) GME ATTESTATION GME ATTESTATION My faculty preceptor for this patient encounter was physically present during the encounter and was fully available. All aspects of the patient interview, examination, medical decision making process, and medical care plan development were reviewed and approved by the faculty preceptor. The faculty preceptor is aware and concurs with the plan as stated in the body of this note and will attest to such by his/her cosignature. ATTENDING NOTE I, Matthew Caban, have independently examined this patient and performed my own physical exam, as well as reviewed the documentation and edited where necessary. I have discussed in detail with the resident / student the findings and plan of treatment as documented by the resident / student and edited their note. I agree with their findings and treatment plan and have edited their documentation. I will continue to follow the patient during this hospital stay. BRITTNEY LOYA MD Feb 08, 2020 01:04 MATTHEW CABAN MD Feb 08, 2020 03:08
[2020-02-08 01:40] LABS: CK-MB VALUE MASS < 1.0 NG/ML (<3.6); CPK CREATINE PHOSPHOKINASE 30 U/L (26-192); MB/CK RELATIVE INDEX 3.33 (< OR =4); TROPONIN I < 0.02 NG/ML (< 0.10)
[2020-02-08] MEDS ORDERED: DEXTROSE 50% 50 ML SYRINGE IV PRN (01:45)
[2020-02-08] MEDS ORDERED: GLUCAGON INJ 1MG VIAL SC PRN (01:45)
[2020-02-08] MEDS ORDERED: METOCLOPRAMIDE INJ 10MG/2ML VIAL (J2765 PER 1) IV ONE (01:45)
[2020-02-08] MEDS ORDERED: GLUCOSE 4GM CHEW TABLET PO PRN (01:45)
[2020-02-08] MEDS: NS 1,000 ML IV SCH ×3 (01:51→20:27)
--- NOTE | 2020-02-08 02:09 | REPVR ---
PROCEDURE INFORMATION: Exam: XR Chest, 1 View Exam date and time: 02/08/20 (1:45am) Age: 44 years old Clinical indication: NG tube placement TECHNIQUE: Imaging protocol: Portable CXR Views: 1 view COMPARISON: Abdomen plain films and CXR of 08/07/19 FINDINGS: Lungs: Unremarkable. No consolidation. Pleural space: Unremarkable. No pleural effusions. No pneumothorax. Heart/Mediastinum: Unremarkable. No cardiomegaly. Bones/joints: Unremarkable. IMPRESSION: No acute findings. Electronically signed by: Tawny Han On 02/08/2020 02:09:34 AM
[2020-02-08 02:19] LABS: CK-MB VALUE MASS < 1.0 NG/ML (<3.6); CPK CREATINE PHOSPHOKINASE 25 U/L (26-192); FREE T4 1.23 NG/DL (0.76-1.46); TROPONIN I < 0.02 NG/ML (< 0.10)
[2020-02-08 02:27] LABS: HEMOGLOBIN A1c 11.2 %
[2020-02-08] MEDS: PIPERACILLIN/TAZOBACTAM SOD 3.375 GM in D5W MINI-BAG PLUS 50 ML IV SCH ×4 (02:31→20:28)
[2020-02-08 03:14] VITALS: BP 151/97
[2020-02-08] MEDS: CHLORASEPTIC SPRAY MT PRN ×2 (04:04→08:08)
[2020-02-08] MEDS ORDERED: MORPHINE 2 MG/ML 1ML VIAL (J2270) IV ONE (04:15)
[2020-02-08 06:00] VITALS: BP 123/77
[2020-02-08] MEDS: HumaLOG INSULIN (NovoLOG) PER UNIT SC SCH ×3 (08:08→17:00)
[2020-02-08] MEDS: MORPHINE 4 MG/ML 1ML VIAL/SYRINGE (J2270) IV PRN ×4 (08:09→20:28)
[2020-02-08] MEDS: ONDANSETRON 4MG/2ML VIAL IV PRN ×3 (08:51→21:47)
[2020-02-08 09:14] LABS: HEMATOCRIT 40.6 % (36.0-47.0); HEMOGLOBIN 13.2 g/dl (12.0-15.5); MEAN CORPUSCULAR HEMOGLOBIN 28.4 pg (27.0-33.0); MEAN CORPUSCULAR HGB CONC 32.5 g/dl (32.0-36.5); MEAN CORPUSCULAR VOLUME 87.5 fl (80.0-96.0); PLATELET COUNT, AUTOMATED 310 10^3/uL (150-450); RED BLOOD COUNT 4.64 10^6/uL (4.00-5.40); WHITE BLOOD COUNT 8.6 10^3/uL (4.0-10.0)
[2020-02-08 09:32] LABS: ALT/SGPT 11 U/L (12-78); BILIRUBIN,TOTAL 0.9 MG/DL (0.2-1.0); BLOOD UREA NITROGEN 9 MG/DL (7-18); CALCIUM LEVEL 8.1 MG/DL (8.5-10.1); CARBON DIOXIDE LEVEL 29 MEQ/L (21-32); CHLORIDE LEVEL 104 MEQ/L (98-107); CREATININE FOR GFR 0.55 MG/DL (0.55-1.30); GLOMERULAR FILTRATION RATE > 60.0 (>58); GLUCOSE, FASTING 234 MG/DL (70-100); POTASSIUM SERUM 3.7 MEQ/L (3.5-5.1); SODIUM LEVEL 138 MEQ/L (136-145); TOTAL PROTEIN 6.1 GM/DL (6.4-8.2)
[2020-02-08 14:00] VITALS: BP 115/75
[2020-02-08] MEDS ORDERED: HumaLOG INSULIN (NovoLOG) PER UNIT SC SCH (21:00)
[2020-02-08 22:00] VITALS: BP 135/88
[2020-02-09] MEDS: MORPHINE 4 MG/ML 1ML VIAL/SYRINGE (J2270) IV PRN ×5 (00:34→20:28)
[2020-02-09] MEDS: PIPERACILLIN/TAZOBACTAM SOD 3.375 GM in D5W MINI-BAG PLUS 50 ML IV SCH ×4 (02:12→20:20)
[2020-02-09] MEDS: ONDANSETRON 4MG/2ML VIAL IV PRN ×3 (03:28→14:11)
[2020-02-09] MEDS: NS 1,000 ML IV SCH ×2 (05:03→20:20)
[2020-02-09] MEDS: CHLORASEPTIC SPRAY MT PRN (05:12)
[2020-02-09 06:00] VITALS: BP 131/85
[2020-02-09 06:23] LABS: HEMATOCRIT 41.2 % (36.0-47.0); HEMOGLOBIN 13.3 g/dl (12.0-15.5); MEAN CORPUSCULAR HEMOGLOBIN 29.2 pg (27.0-33.0); MEAN CORPUSCULAR HGB CONC 32.3 g/dl (32.0-36.5); MEAN CORPUSCULAR VOLUME 90.4 fl (80.0-96.0); PLATELET COUNT, AUTOMATED 278 10^3/uL (150-450); RED BLOOD COUNT 4.56 10^6/uL (4.00-5.40); WHITE BLOOD COUNT 11.2 10^3/uL (4.0-10.0)
[2020-02-09 06:46] LABS: ALBUMIN 2.8 GM/DL (3.2-5.2); ALT/SGPT 12 U/L (12-78); BILIRUBIN,TOTAL 1.1 MG/DL (0.2-1.0); BLOOD UREA NITROGEN 11 MG/DL (7-18); CALCIUM LEVEL 8.2 MG/DL (8.5-10.1); CARBON DIOXIDE LEVEL 30 MEQ/L (21-32); CHLORIDE LEVEL 104 MEQ/L (98-107); CREATININE FOR GFR 0.58 MG/DL (0.55-1.30); GLOMERULAR FILTRATION RATE > 60.0 (>58); GLUCOSE, FASTING 205 MG/DL (70-100); POTASSIUM SERUM 3.3 MEQ/L (3.5-5.1); SODIUM LEVEL 140 MEQ/L (136-145)
[2020-02-09] MEDS: HumaLOG INSULIN (NovoLOG) PER UNIT SC SCH ×4 (08:14→18:15)
[2020-02-09] MEDS ORDERED: MIRALAX *UNIT DOSE* 17GM PACKET PO SCH (09:00)
[2020-02-09] MEDS: KCL 10MEQ/100ML SWI (KRUN) 10 MEQ in IV 1 EA IV SCH ×5 (09:00→12:00)
--- NOTE | 2020-02-09 10:17 | REP ---
INDICATION: ffup sbo. COMPARISON: Comparison chest x-ray February 08, 2020. Comparison abdomen film September 14, [address] study February 07, 2020... TECHNIQUE: Three views. FINDINGS: Upright chest radiograph shows a nasogastric tube in place. There is no evidence of free subdiaphragmatic air. There is a hazy opacity in the right base question atelectasis versus developing infiltrate.. Supine and erect views of the abdomen show a few loops of nondilated gas in the colon mostly colonic loops. A large calcified uterine leiomyoma is observed. No small bowel dilation is a visualized. IMPRESSION: No evidence of free subdiaphragmatic air. Question developing infiltrate right base. NG tube in the stomach. No dilated bowel loops seen radiographically. Uterine leiomyoma.. <Electronically signed by Ignacio Godfrey > 02/09/20 1014
[2020-02-09 14:00] VITALS: BP 145/90
--- NOTE | 2020-02-09 18:10 | IPNPDOC ---
Date Seen The patient was seen on 02/09/20. Progress Note SUBJECTIVE: NG tube remains in place to IS, not passing gas, continues to have diffuse abdominal pain. Refused IV potassium this AM as she says it burgess, approached her again to reconsider and she refused again. Not taking PO at this time. She admits to nausea with no vomiting but denies shortness of breath, chest pain. OBJECTIVE: PHYSICAL EXAMINATION: VITAL SIGNS: see below GENERAL: morbidly obese, appears uncomfortable in bed, alert and oriented x3 HEENT: PERRL, EOMI, Oral mucous membranes are alvarado, NG tube secured in place NECK:No JVD. No adenopathy is appreciated. No thyromegaly CHEST/LUNGS: CTAB, no W/R/R. There is no tenderness to the chest wall. HEART: Regular rate and rhythm. No murmurs, rubs, or gallops are appreciated. Distal pulses are 2+. No carotid bruits appreciated. ABDOMEN: There is a large left lower quadrant hernia noted, hypoactive bowel sounds present. There is pain to deep palpation diffusely. Large healed midline scar. No discernable masses/organomegaly EXTREMITIES: No peripheral edema. There is no focal long bone tenderness or deformity. SKIN: The patients skin is warm and dry, without rashes or lesions. PSYCHIATRIC: AAO x 3, normal mood/affect NEUROLOGIC: The patient has 5/5 strength to the upper and lower extremities bilaterally. Sensation is intact throughout. Deep tendon reflexes are 2+ in all four extremities. No focal deficits LABORATORY DATA: See below. IMAGING: CT ABD/PEL 02/07/20: Complex ventral hernia transmitting several loops of mid small bowel. Several of these loops appear obstructed with mural thickening and fecalization of contents suggesting some degree of chronicity. The distal-most ileum exits the hernia and is normal in caliber. The proximal jejunum is normal in caliber. There is a fluid collection consistent with a chronic seroma in the complex hernia again noted unchanged as above, 10.4 cm in greatest diameter. Markedly enlarged myomatous uterus is again seen. There is some fatty infiltration of the liver. MICROBIOLOGY: Please see below. ASSESSMENT: This is a 44 YO F with history of DM2, NICA, frequent hospitalizations for SBO s/p ventral hernia repair who was admitted for further treatment of SBO. PLAN: #SBO -NG tube to intermittent suction, WBC slightly more elevated at 11.2 -Abd pain, diffuse persists with palpation of abdomen, denies passing gas or having BM -CT Abd/pel: above -C/w IVFs, zofran, morphine PRN, zosyn, NG tube to IS, NPO -Surgery following closely (Dr. Sanchez) #Hypokalemia, acute 2/2 to NG tube o/p -K 3.3 -Refused IV replacement after multiple discussions -F/u labs in AM #DM2 -Last A1c 10% -Q6H SSI with FS, hypoglycemic protocol #History of hypothyroidism: -TSH/T4 wnl DVT ppx: Lovenox DISPOSITION: Surgery following closely. Plan is discharge home when medically improved. VS, I&O, 24H, Fishbone Vital Signs/I&O Vital Signs Date Time Temp Pulse Resp B/P (MAP) Pulse Ox O2 Delivery O2 Flow Rate FiO2 02/09/20 14:21 16 Room Air 02/09/20 14:00 97.1 74 145/90 (108) 94 I&O- Last 24 Hours up to 6 AM 02/09/20 05:59 Intake Total 1710 ml Output Total 2925 ml Balance -1215 ml Laboratory Data 24H LABS Laboratory Tests 2 02/08/20 21:10: Bedside Glucose (Misc Panel) 163H 02/09/20 05:48: Nucleated Red Blood Cells % (auto) 0.0, Anion Gap 6L, Glomerular Filtration Rate > 60.0, Calcium Level 8.2L, Total Bilirubin 1.1H, Aspartate Amino Transf (AST/SGOT) 5L, Alanine Aminotransferase (ALT/SGPT) 12, Alkaline Phosphatase 90, Total Protein 6.0L, Albumin 2.8L, Albumin/Globulin Ratio 0.9L 02/09/20 12:01: Bedside Glucose (Misc Panel) 107H CBC/BMP Laboratory Tests 02/09/20 05:48 Current Medications Current Medications Medications (Trade) Dose Ordered Sig/Mike Route PRN Reason Start Time Stop Time Status Last Admin Dose Admin Dextrose (Dextrose 50%) 25 ml ASDIRECTED PRN IV SEE LABEL COMMENTS 02/08/20 01:45 Glucagon (Glucagon) 1 mg ASDIRECTED PRN SC SEE LABEL COMMENTS 02/08/20 01:45 Glucose (Glucose) 16 GM ASDIRECTED PRN PO SEE LABEL COMMENTS 02/08/20 01:45 Home Med (Med Rec Complete!) ASDIRECTED XX 02/08/20 00:45 02/08/20 00:37 DC Insulin Human Lispro (HumaLOG INSULIN) See Protocol Table AC SC 02/08/20 07:30 02/09/20 17:31 Insulin Human Lispro (HumaLOG INSULIN) See Protocol Table QHS SC 02/08/20 21:00 Morphine Sulfate (Morphine Sulfate Inj) 4 mg Q4HP PRN IV SEVERE PAIN (PS 8-10) 02/08/20 03:45 02/09/20 14:11 Morphine Sulfate (Morphine Sulfate Inj) 4 mg Q6HP PRN IV SEVERE PAIN (PS 8-10) 02/08/20 01:15 02/08/20 03:44 DC 02/08/20 01:51 Ondansetron HCl (ZOFRAN INJection) 2 mg Q4HP PRN IV NAUSEA OR VOMITING 02/08/20 21:30 02/09/20 14:11 Ondansetron HCl (ZOFRAN INJection) 4 mg Q8HP PRN IV NAUSEA OR VOMITING 02/08/20 01:15 02/08/20 21:28 DC 02/08/20 16:59 Phenol (Chloraseptic [place]) 2 spray Q2HP PRN MT SORE THROAT 02/08/20 03:45 02/09/20 05:12 Piperacillin Sod/ Tazobactam Sod 3.375 gm/Dextrose 50 ml @ 50 mls/hr Q6H IV 02/08/20 02:00 02/09/20 14:11 Polyethylene Glycol (Miralax) 1 pkt BID PO 02/09/20 21:00 Polyethylene Glycol (Miralax) 1 pkt DAILY PO 02/09/20 09:00 02/09/20 08:45 DC 02/09/20 08:14 Potassium Chloride 10 meq/ IV Miscellaneous Supplies 100 ml @ 100 mls/hr Q1H IV 02/09/20 09:00 02/09/20 12:59 DC Sodium Chloride 1,000 ml @ 100 mls/hr Q10H IV 02/08/20 01:31 02/09/20 05:03 Allergies Coded Allergies: shellfish derived (Verified Allergy, Intermediate, hives, 09/11/19) [place] (Verified Allergy, Mild, RASH, 02/07/20) SEAFOOD (Verified Allergy, Mild, RASH, 02/07/20) Cesilia Amezcua MD Feb 09, 2020 18:09
[2020-02-09 19:26] LABS: INR 1.07; PROTHROMBIN TIME 14.1 SECONDS (12.5-14.3)
[2020-02-09 19:27] LABS: PARTIAL THROMBOPLASTIN TIME 32.3 SECONDS (24.2-38.5)
[2020-02-09] MEDS: MIRALAX *UNIT DOSE* 17GM PACKET PO SCH (20:20)
[2020-02-09 22:00] VITALS: BP 128/80
[2020-02-10] MEDS: MORPHINE 4 MG/ML 1ML VIAL/SYRINGE (J2270) IV PRN ×2 (00:41→05:04)
[2020-02-10] MEDS: CHLORASEPTIC SPRAY MT PRN ×2 (00:43→03:55)
[2020-02-10] MEDS: HumaLOG INSULIN (NovoLOG) PER UNIT SC SCH ×2 (00:46→06:14)
[2020-02-10] MEDS: PIPERACILLIN/TAZOBACTAM SOD 3.375 GM in D5W MINI-BAG PLUS 50 ML IV SCH ×2 (02:09→09:55)
[2020-02-10] MEDS: ONDANSETRON 4MG/2ML VIAL IV PRN (05:01)
[2020-02-10 06:00] VITALS: BP 138/89
[2020-02-10 06:45] LABS: HEMATOCRIT 38.7 % (36.0-47.0); HEMOGLOBIN 12.3 g/dl (12.0-15.5); MEAN CORPUSCULAR HEMOGLOBIN 28.6 pg (27.0-33.0); MEAN CORPUSCULAR HGB CONC 31.8 g/dl (32.0-36.5); PLATELET COUNT, AUTOMATED 275 10^3/uL (150-450); WHITE BLOOD COUNT 9.2 10^3/uL (4.0-10.0)
[2020-02-10 07:11] LABS: ALBUMIN 2.5 GM/DL (3.2-5.2); ALT/SGPT 9 U/L (12-78); BLOOD UREA NITROGEN 12 MG/DL (7-18); CALCIUM LEVEL 8.1 MG/DL (8.5-10.1); CARBON DIOXIDE LEVEL 30 MEQ/L (21-32); CHLORIDE LEVEL 105 MEQ/L (98-107); CREATININE FOR GFR 0.47 MG/DL (0.55-1.30); GLOMERULAR FILTRATION RATE > 60.0 (>58); GLUCOSE, FASTING 126 MG/DL (70-100); POTASSIUM SERUM 2.9 MEQ/L (3.5-5.1); SODIUM LEVEL 142 MEQ/L (136-145); TOTAL PROTEIN 6.1 GM/DL (6.4-8.2)
--- NOTE | 2020-02-10 07:39 | CR.PDOC ---
General Surgery Consultation Date of Consultation 02/10/20 History and Physical CONSULT REPORT FOR: hospitalist service REASON FOR CONSULTATION: incarcerated complex ventral/incisional hernia, small bowel obstruction HISTORY OF PRESENT ILLNESS: Patient known to me and the whole of the surgical service likewise the hospital service from multiple admissions for the past 2 or 3 years for this intermittent bowel obstruction and long-standing complex ventral/incisional hernia with most likely loss of domain. She is very noncompliant and with sign out AMA symptom that she gets better and does not follow-up outpatient. I have a more detailed consult note prior. Problems have been essentially the same. PAST MEDICAL HISTORY: 1. . PAST SURGICAL HISTORY: INCLUDES: 1. . PREVIOUS ANESTHESIA REACTIONS: ALLERGIES: Please see below. FAMILY HISTORY: . HOME MEDICATIONS: Please see below. REVIEW OF SYSTEMS: GENERAL: [Denies chills, reports weight gain, reports feeling febrile yesterday]. HEENT: [Denies blurred vision and double vision. Denies ear symptoms. Denies hoarseness]. NECK: Denies any neck pain]. CARDIOVASCULAR: [Denies chest pain and palpitations]. MUSCULOSKELETAL: [Denies arthralgias, back pain and thrombophlebitis]. SKIN: [Denies rash]. NEUROLOGIC: [Denies headache, stroke and transient ischemic attack]. PSYCHIATRIC: [Denies anxiety and depression]. ENDOCRINE: [Denies thyroid disease]. HEMATOLOGY/ONCOLOGY: [Denies bleeding or clotting disorder]. HEART: [Denies any chest pains, palpitations, paroxysmal dyspnea, orthopnea]. PULMONARY: [Denies chronic cough, dyspnea and wheezing]. GASTROINTESTINAL: [Denies rectal bleeding, family history of colon cancer, constipation, diarrhea, dysphagia, heartburn and jaundice]. GENITOURINARY: [Denies dysuria, frequency, hematuria and nocturia]. ENDOCRINE: [Denies polydipsia, polyphagia, polyuria, heat or cold intolerance]. INFECTIOUS: [Denies any recent upper respiratory tract infection, UTI, need for use of antibiotics]. NUTRITION: [Reports good appetite]. PHYSICAL EXAMINATION: VITALS SIGNS: Please see below. GENERAL APPEARANCE:[Patient seen, laying in bed, awake, alert, and oriented. Comfortable, in no acute distress]. SKIN: [Warm and moist]. HEENT: [Normocephalic, atraumatic. [place] palpebral conjunctiva, anicteric sclerae. Lips and mucosa appear moist]. NECK: [Supple, no thyromegaly. No obvious jugular venous distention]. LUNGS: [Clear to auscultation bilaterally. No wheezing appreciated]. HEART: [No chest wall abnormalities. Regular rate and rhythm with no murmurs appreciated]. ABDOMEN: Abdomen is , soft, . [No hepatosplenomegaly. No umbilical or groin herniations, nondistended. No noticeable rebound or guarding. No grimacing with palpation. No rebound tenderness. No masses appreciated]. EXTREMITIES: [Extremities have no deformities. No edema identified] ANCILLARIES: . LABORATORY DATA: Please see below. IMAGING STUDIES: CT scan abdomen and pelvis. IMPRESSION AND PLAN: small bowel obstruction related to large complex midline ventral/incisional hernia complicated by morbid obesity (BMI 40.2), and noncompliance. would follow along. If not resolved would as previously planned stage the procedure with attempt at laparoscopic lysis of adhesion, probably use botox to denervate the lateral wall muscles and gain some compliance and hopefully she will follow up and attempt at closure of her hernia in 4-6 weeks. Vital Signs Vital Signs Date Time Temp Pulse Resp B/P (MAP) Pulse Ox O2 Delivery O2 Flow Rate FiO2 02/10/20 06:00 96.8 73 20 138/89 (105) 92 Room Air I&Os I&O- Last 24 Hours up to 6 AM 02/10/20 06:00 Intake Total 860 ml Output Total 2700 ml Balance -1840 ml Laboratory Data Labs 24H Laboratory Tests 2 02/09/20 12:01: Bedside Glucose (Misc Panel) 107H 02/09/20 18:42: Prothrombin Time 14.1H, Prothromb Time International Ratio 1.07, Activated Partial Thromboplast Time 32.3 02/10/20 00:22: Bedside Glucose (Misc Panel) 105 02/10/20 06:04: Bedside Glucose (Misc Panel) 114H 02/10/20 06:28: Nucleated Red Blood Cells % (auto) 0.0, Anion Gap 7L, Glomerular Filtration Rate > 60.0, Calcium Level 8.1L, Total Bilirubin 1.0, Aspartate Amino Transf (AST/SGOT) 4L, Alanine Aminotransferase (ALT/SGPT) 9L, Alkaline Phosphatase 82, Total Protein 6.1L, Albumin 2.5L, Albumin/Globulin Ratio 0.7L CBC/BMP Laboratory Tests 02/10/20 06:28 Home Medications No Active Prescriptions or Reported Meds Allergies Coded Allergies: shellfish derived (Verified Allergy, Intermediate, hives, 09/11/19) [place] (Verified Allergy, Mild, RASH, 02/07/20) SEAFOOD (Verified Allergy, Mild, RASH, 02/07/20) NIGHAT LAM MD Feb 10, 2020 07:39
--- NOTE | 2020-02-10 09:40 | REP ---
INDICATION: ffup sbo. COMPARISON: Acute plain film abdominal series dated 02/09/[address] dated 02/07/2020. TECHNIQUE: Single AP view of the abdomen/pelvis with the patient supine FINDINGS: The distal tip of the endotracheal tube is noted in the upper abdomen. There is no bowel distention or obstruction. There are no calcifications. The known a calcified uterine leiomyoma is again identified in the pelvis, unchanged. The skeletal structures and soft tissues are otherwise unremarkable. IMPRESSION: Normal bowel gas pattern. Calcified uterine leiomyoma in the pelvis. <Electronically signed by Braydon Dillon > 02/10/20 0990
[2020-02-10] MEDS: ENOXAPARIN 40MG/0.4ML SYRINGE (J1650 PER 10MG) SC SCH ×2 (09:54→10:11)
[2020-02-10] MEDS: NS 1,000 ML IV SCH (09:55)
[2020-02-10] MEDS: MIRALAX *UNIT DOSE* 17GM PACKET PO SCH (09:55)
[2020-02-10] MEDS ORDERED: POTASSIUM CHLORIDE 10 MEQ SR TABLET PO ONE (11:00)
--- NOTE | 2020-02-10 13:22 | DS.PDOC ---
Discharge Summary General Date of Admission Feb 08, 2020 at 02:18 Date of Discharge 02/10/2020 Attending Physician: DRISS KELLY MD Discharge Summary PROCEDURES PERFORMED DURING STAY: None ADMITTING DIAGNOSES: 1. SBO DISCHARGE DIAGNOSES: SBO i/s/o prior ventral hernia repair Morbid obesity NICA BIPAP settings 20/01 Hypothyroidism DM2, non-insulin dependent PTSD Bipolar disorder Hx of MDD with suicidal ideation requiring hospitalizations in the past Hypokalemia COMPLICATIONS/CHIEF COMPLAINT: Large Incisional Hernia, Small Bowel Obstruction. HISTORY OF PRESENT ILLNESS: Carla Ramirez is a 44 YO F with history of NICA, DM2 and ventral hernia repair frequently hospitalized with small bowel obstruction who presented to the ED with abdominal pain. She first presented in the morning on 02/07/20 but left AMA. She states that she had now developed cramping non radiating abdominal pain worse in her left lower abdomen and had been eating small amounts and vomiting shortly after eating, without any recent fevers, chills, or weight loss. HOSPITAL COURSE: In the ED, she underwent CT abd/pelvis with findings concerning for small bowel obstruction. Surgery service was consulted and concluded that she had a small bowel obstruction related to a large complex midline ventral/incisional hernia complicated by morbid obesity (BMI 40.2) and noncompliance and recommended admission to medicine with conservative medical management and if persistent would consider a staged procedure with attempt at laparoscopic lysis of adhesion, probably use botox to denervate the lateral wall muscles and gain some compliance and hopefully she would thereafter follow up and attempt at closure of her hernia in 4-6 weeks. She had an NGT placed and on the morning of 02/09 she discontinued it herself and self discharged from the hospital AMA despite Dr. Sanchez having discussed surgery with her on 02/10. Of note, she was also noted to be hypokalemic and refused IV KCl and eventually took 40meq of PO KCl prior to discharge when her K was 2.8. DISCHARGE MEDICATIONS: Please see below. ALLERGIES: Please see below. PHYSICAL EXAMINATION ON DISCHARGE: VITAL SIGNS: Please see below. GENERAL: morbidly obese, NAD, alert and oriented x3 HEENT: PERRLA, EOMI, MMM NECK:No JVD. No adenopathy is appreciated. No thyromegaly CHEST/LUNGS: CTAB, no W/R/R. HEART: Regular rate and rhythm. No murmurs, rubs, or gallops are appreciated. Distal pulses are 2+. ABDOMEN: There is a large left lower quadrant hernia noted, hypoactive bowel sounds present. Mild pain to deep palpation. Large healed midline scar. Obese abdomen. EXTREMITIES: No peripheral edema. There is no focal long bone tenderness or deformity. SKIN: The patients skin is warm and dry, without rashes or lesions. PSYCHIATRIC: AAO x 3, normal mood/affect NEUROLOGIC: The patient has 5/5 strength to the upper and lower extremities bilaterally. Sensation is intact throughout. Deep tendon reflexes are 2+ in all four extremities. No focal deficits LABORATORY DATA: Please see below. IMAGING: CT ABD/PEL 02/07/20: Complex ventral hernia transmitting several loops of mid small bowel. Several of these loops appear obstructed with mural thickening and fecalization of contents suggesting some degree of chronicity. The distal-most ileum exits the hernia and is normal in caliber. The proximal jejunum is normal in caliber. T here is a fluid collection consistent with a chronic seroma in the complex hernia again noted unchanged as above, 10.4 cm in greatest diameter. Markedly enlarged myomatous uterus is again seen. There is some fatty infiltration of the liver. 02/09/2020 AXR: Upright chest radiograph shows a nasogastric tube in place. There is no evidence of free subdiaphragmatic air. There is a hazy opacity in the right base question atelectasis versus developing infiltrate.. Supine and erect views of the abdomen show a few loops of nondilated gas in the colon mostly colonic loops. A large calcified uterine leiomyoma is observed. No small bowel dilation is a visualized. IMPRESSION: No evidence of free subdiaphragmatic air. Question developing infiltrate right base. NG tube in the stomach. No dilated bowel loops seen radiographically. Uterine leiomyoma.. AXR: There is no bowel distention or obstruction. There are no calcifications. The known a calcified uterine leiomyoma is again identified in the pelvis, unchanged. The skeletal structures and soft tissues are otherwise unremarkable. IMPRESSION: Normal bowel gas pattern. Calcified uterine leiomyoma in the pelvis. PROGNOSIS: High risk for re-admission given degree of non-compliance ACTIVITY: As tolerated DIET: To slowly advance. Self discharged while still NPO without a diet trial. DISCHARGE PLAN: AMA DISPOSITION: 07 Against Medical Advice. DISCHARGE INSTRUCTIONS: 1. To return to hospital if abdominal pain worsens with N/V ITEMS TO FOLLOWUP ON ON OUTPATIENT: 1. SBO and hernia DISCHARGE CONDITION: Stable TIME SPENT ON DISCHARGE: 36 minutes. Vital Signs/I&Os Vital Signs Date Time Temp Pulse Resp B/P (MAP) Pulse Ox O2 Delivery O2 Flow Rate FiO2 02/10/20 06:00 96.8 73 20 138/89 (105) 92 Room Air I&O- Last 24 Hours up to 6 AM 02/10/20 06:00 Intake Total 860 ml Output Total 2700 ml Balance -1840 ml Laboratory Data Labs 24H Laboratory Tests 2 02/09/20 18:42: Prothrombin Time 14.1H, Prothromb Time International Ratio 1.07, Activated Partial Thromboplast Time 32.3 02/10/20 00:22: Bedside Glucose (Misc Panel) 105 02/10/20 06:04: Bedside Glucose (Misc Panel) 114H 02/10/20 06:28: Nucleated Red Blood Cells % (auto) 0.0, Anion Gap 7L, Glomerular Filtration Rate > 60.0, Calcium Level 8.1L, Total Bilirubin 1.0, Aspartate Amino Transf (AST/SGOT) 4L, Alanine Aminotransferase (ALT/SGPT) 9L, Alkaline Phosphatase 82, Total Protein 6.1L, Albumin 2.5L, Albumin/Globulin Ratio 0.7L CBC/BMP Laboratory Tests 02/10/20 06:28 FSBS Laboratory Tests Test 02/10/20 00:22 02/10/20 06:04 Range/Units Bedside Glucose (Misc Panel) 105 114 70-105 MG/DL Discharge Medications No Active Prescriptions or Reported Meds Allergies Coded Allergies: shellfish derived (Verified Allergy, Intermediate, hives, 09/11/19) Amarjit (Verified Allergy, Mild, RASH, 02/07/20) SEAFOOD (Verified Allergy, Mild, RASH, 02/07/20) DRISS KELLY MD Feb 10, 2020 13:22
== END 2020-02-10 11:32 | disposition left against medical advice (07) | DRG 394 ==
LOC: M ED 21:43 → M ED INP 02-08 02:18 → M MSPAV 02-08 03:17
PROVIDERS: ADMIT Internal Medicine; ATTEND Internal Medicine
DX: K43.6 Other and unspecified ventral hernia with obstruction, without gangrene (principal); Z68.41 Body mass index [BMI] 40.0-44.9, adult; K56.609 Unspecified intestinal obstruction, unspecified as to partial versus complete obstruction; E66.01 Morbid (severe) obesity due to excess calories; G47.33 Obstructive sleep apnea (adult) (pediatric); E11.9 Type 2 diabetes mellitus without complications; E03.9 Hypothyroidism, unspecified; F31.9 Bipolar disorder, unspecified; E87.6 Hypokalemia; F43.10 Post-traumatic stress disorder, unspecified; Z91.19 Patient's noncompliance with other medical treatment and regimen; Z91.013 Allergy to seafood; Z91.018 Allergy to other foods; F17.200 Nicotine dependence, unspecified, uncomplicated

== ENCOUNTER 2020-04-26 20:11 | Emergency (ER) | payer MEDICARE, MEDICAID ==
[~2020-04-26] VITALS: Ht 157.5 cm; Wt 100.0 kg
[~2020-04-26 20:11] MED LIST changes: -CLIN150C14 PO; +CLIN150C15 PO
[2020-04-26] MEDS ORDERED: ACETAMINOPHEN 325 MG TAB PO ONE (21:30)
[2020-04-26 21:34] LABS: URINE PREG TEST NEGATIVE (NEGATIVE)
[2020-04-26 22:47] VITALS: BP 208/122
[2020-04-26 23:11] VITALS: BP 188/117
--- NOTE | 2020-04-26 23:29 | REPVR ---
PROCEDURE INFORMATION: Exam: XR Right Foot Exam date and time: 04/26/2020 11:00 PM Age: 44 years old Clinical indication: Pain; Foot; Right; Additional info: Right ankle/foot pain TECHNIQUE: Imaging protocol: XR Right foot. Views: 3 or more views. COMPARISON: CR Foot, complete 03/15/2014 11:55 AM FINDINGS: Bones/joints: No acute fracture. No dislocation. Biphalangeal 5th toe which is a normal variant. Large plantar calcaneal spur. Soft tissues: Normal. IMPRESSION: 1. No acute fracture. 2. Large plantar calcaneal spur. Electronically signed by: Patria Child On 04/26/2020 23:29:42 PM
--- NOTE | 2020-04-26 23:31 | REPVR ---
PROCEDURE INFORMATION: Exam: XR Right Ankle Exam date and time: 04/26/2020 11:00 PM Age: 44 years old Clinical indication: Pain; Ankle; Right; Additional info: Right ankle pain TECHNIQUE: Imaging protocol: XR Right ankle. Views: 3 or more views. COMPARISON: CR Foot, complete 03/15/2014 11:55 AM FINDINGS: Bones/joints: No acute fracture. No dislocation. Large plantar calcaneal spur. Soft tissues: Normal. IMPRESSION: 1. No acute fracture. 2. Large plantar calcaneal spur. Electronically signed by: Patria Child On 04/26/2020 23:31:28 PM
== END 2020-04-27 | disposition home or self-care (01) ==
LOC: M ED 20:11
DX: S93.611A Sprain of tarsal ligament of right foot, initial encounter (principal); W00.0XXA Fall on same level due to ice and snow, initial encounter; Y92.811 Bus as the place of occurrence of the external cause; Y93.9 Activity, unspecified; Y99.9 Unspecified external cause status; M77.31 Calcaneal spur, right foot; F31.9 Bipolar disorder, unspecified; F17.200 Nicotine dependence, unspecified, uncomplicated; Z91.013 Allergy to seafood

== ENCOUNTER 2020-05-10 23:08 | Emergency (ER) | payer MEDICARE, MEDICAID | END 2020-05-10 23:12 | disposition left against medical advice (07) | LOC: M ED 23:08 | DX: Z53.21 Procedure and treatment not carried out due to patient leaving prior to being seen by health care provider (principal) ==

== ENCOUNTER 2020-06-05 01:54 | Emergency (ER) | payer MEDICARE, MEDICAID ==
[~2020-06-05] VITALS: Ht 157.5 cm; Wt 96.4 kg
[2020-06-05 02:31] LABS: BASO # 0.1 10^3/uL (0.0-0.2); BASO % 0.6 % (0.0-1.0); EOS # 0.2 10^3/uL (0.0-0.5); EOS % 2.1 % (0.0-3.0); LYMPH # 1.5 10^3/uL (1.5-5.0); MEAN CORPUSCULAR HEMOGLOBIN 29.2 pg (27.0-33.0); MEAN CORPUSCULAR HGB CONC 33.3 g/dl (32.0-36.5); MEAN CORPUSCULAR VOLUME 87.5 fl (80.0-96.0); MONO # 0.5 10^3/uL (0.0-0.8); MONO % 4.5 % (2.0-8.0); NEUTROPHILS # 8.5 10^3/uL (1.5-8.5); NEUTROPHILS % 78.2 % (36.0-66.0); PLATELET COUNT, AUTOMATED 387 10^3/uL (150-450); WHITE BLOOD COUNT 10.9 10^3/uL (4.0-10.0)
[2020-06-05 02:40] LABS: INR 0.91; PROTHROMBIN TIME 12.5 SECONDS (12.5-14.3)
[2020-06-05 03:07] LABS: HCG, SERUM QUALITATIVE NEGATIVE (NEGATIVE)
[2020-06-05 03:11] LABS: ALBUMIN 3.4 GM/DL (3.2-5.2); ALT/SGPT 16 U/L (12-78); BILIRUBIN,DIRECT 0.1 MG/DL (0.0-0.2); BILIRUBIN,TOTAL 0.4 MG/DL (0.2-1.0); BLOOD UREA NITROGEN 14 MG/DL (7-18); CALCIUM LEVEL 8.9 MG/DL (8.5-10.1); CARBON DIOXIDE LEVEL 26 MEQ/L (21-32); CHLORIDE LEVEL 100 MEQ/L (98-107); CREATININE FOR GFR 0.71 MG/DL (0.55-1.30); GLOMERULAR FILTRATION RATE > 60.0 (>58); GLUCOSE, FASTING 447 MG/DL (70-100); LIPASE 150 U/L (73-393); POTASSIUM SERUM 4.1 MEQ/L (3.5-5.1); SODIUM LEVEL 133 MEQ/L (136-145); TOTAL PROTEIN 6.9 GM/DL (6.4-8.2)
[2020-06-05] MEDS ORDERED: HumuLIN R (REGULAR) INSULIN (NovoLIN R) **100U/ML** PER UNIT SC STA ×2 (03:27→06:03)
[2020-06-05] MEDS ORDERED: NS 1,000 ML IV ONE (03:30)
--- NOTE | 2020-06-05 06:22 | REPVR ---
PROCEDURE INFORMATION: Exam: XR Abdomen Exam date and time: 06/05/2020 5:20 AM Age: 44 years old Clinical indication: Other: Abdominal pain/distenion; Additional info: Abdominal pain /distenion TECHNIQUE: Imaging protocol: XR of the abdomen. Views: Frontal supine view of the abdomen. 1 View. COMPARISON: CR Abdomen,Flat Plate KUB 09/14/2019 5:44 PM FINDINGS: Gastrointestinal tract: Nonobstructive bowel gas pattern with few scattered gas-filled loops of nondilated small bowel. Moderate amount of colonic fecal material, most pronounced within the mid colon. Organs: Amorphous calcifications superimposed over the sacrum on the right appears unchanged and consistent with calcified uterine fibroid. Bones/joints: No acute bony abnormalities. Mild degenerative changes. IMPRESSION: Moderate amount of colonic fecal material. No signs of obstruction. Electronically signed by: Diaz Cherry On 06/05/2020 06:22:13 AM
[2020-06-05 06:30] VITALS: BP 139/88
[2020-06-05] MEDS ORDERED: MIRA3350 PO (06:52)
[2020-06-05] MEDS ORDERED: SENN-80 PO (06:52)
[2020-06-05] MEDS ORDERED: COLA100C5 PO (06:53)
== END 2020-06-05 07:02 | disposition home or self-care (01) ==
LOC: M ED 01:54
DX: K59.00 Constipation, unspecified (principal); R14.1 Gas pain; Z87.19 Personal history of other diseases of the digestive system; Z91.013 Allergy to seafood

== ENCOUNTER 2020-06-21 00:15 | Emergency (ER) | payer MEDICARE, MEDICAID ==
[~2020-06-21] VITALS: Ht 157.5 cm; Wt 90.9 kg
[~2020-06-21 00:15] MED LIST changes: +COLA100C5 PO; +SENN-80 PO
[2020-06-21 00:42] VITALS: BP 195/88
[2020-06-21] MEDS ORDERED: IBUP200T45 PO (00:53)
== END 2020-06-21 01:11 | disposition left against medical advice (07) ==
LOC: M ED 00:15
DX: Z53.21 Procedure and treatment not carried out due to patient leaving prior to being seen by health care provider (principal)

== ENCOUNTER 2020-06-26 06:54 | Emergency (ER) | payer MEDICARE, MEDICAID ==
[~2020-06-26] VITALS: Ht 157.5 cm; Wt 90.9 kg
[~2020-06-26 06:54] MED LIST changes: +IBUP200T45 PO
[2020-06-26 07:00] VITALS: BP 173/91
[2020-06-26] MEDS ORDERED: METH4PACK (07:04)
== END 2020-06-26 07:45 | disposition left against medical advice (07) ==
LOC: M ED 06:54
DX: Z53.21 Procedure and treatment not carried out due to patient leaving prior to being seen by health care provider (principal)

== ENCOUNTER 2020-07-03 08:15 | Inpatient (IN) | payer MEDICARE, MEDICAID ==
[~2020-07-03] VITALS: Ht 157.5 cm; Wt 98.4 kg
[~2020-07-03 08:15] MED LIST changes: +METH4PACK
[2020-07-03] MEDS ORDERED: NS 1,000 ML IV ONE ×2 (08:35→10:20)
[2020-07-03] MEDS ORDERED: ONDANSETRON 4MG/2ML VIAL IV ONE ×2 (08:40→09:25)
[2020-07-03] MEDS: MORPHINE 2 MG/ML 1ML VIAL (J2270) IV PRN ×4 (08:53→14:28)
[2020-07-03 08:55] LABS: BASO # 0.1 10^3/uL (0.0-0.2); BASO % 0.4 % (0.0-1.0); EOS # 0.1 10^3/uL (0.0-0.5); EOS % 0.6 % (0.0-3.0); HEMATOCRIT 45.6 % (36.0-47.0); HEMOGLOBIN 15.5 g/dl (12.0-15.5); LYMPH # 1.5 10^3/uL (1.5-5.0); LYMPH % 6.2 % (24.0-44.0); MEAN CORPUSCULAR HEMOGLOBIN 29.1 pg (27.0-33.0); MEAN CORPUSCULAR VOLUME 85.6 fl (80.0-96.0); MONO # 0.8 10^3/uL (0.0-0.8); MONO % 3.2 % (2.0-8.0); NEUTROPHILS # 21.4 10^3/uL (1.5-8.5); NEUTROPHILS % 88.9 % (36.0-66.0); PLATELET COUNT, AUTOMATED 421 10^3/uL (150-450); RED BLOOD COUNT 5.33 10^6/uL (4.00-5.40)
[2020-07-03] MEDS ORDERED: ISOVUE-370 76% 100ML VIAL As Ordered ONE (08:57)
[2020-07-03 09:18] LABS: ALBUMIN 3.7 GM/DL (3.2-5.2); ALT/SGPT 16 U/L (12-78); AMYLASE 29 U/L (25-115); BILIRUBIN,DIRECT 0.1 MG/DL (0.0-0.2); BILIRUBIN,TOTAL 0.4 MG/DL (0.2-1.0); CK-MB VALUE MASS 1.3 NG/ML (<3.6); CPK CREATINE PHOSPHOKINASE 51 U/L (26-192); LIPASE 72 U/L (73-393); MB/CK RELATIVE INDEX 2.55 (< OR =4); TOTAL PROTEIN 7.5 GM/DL (6.4-8.2); TROPONIN I < 0.02 NG/ML (< 0.10)
--- NOTE | 2020-07-03 09:30 | REP ---
INDICATION: abdl pain - hold for poc hcg COMPARISON: 02/08/2020 TECHNIQUE: Portable AP view of the chest FINDINGS: The mediastinum and cardiac silhouette are stable and within normal limits for portable technique. The lung thomas are clear without acute consolidation, effusion, or pneumothorax. Skeletal structures are intact. IMPRESSION: No acute cardiopulmonary process appreciated. <Electronically signed by Diaz Matthew > 07/03/20 0927
[2020-07-03 09:33] LABS: INR 0.94; PROTHROMBIN TIME 12.8 SECONDS (12.5-14.3)
[2020-07-03 09:34] LABS: PARTIAL THROMBOPLASTIN TIME 25.3 SECONDS (24.2-38.5)
--- NOTE | 2020-07-03 09:36 | REP ---
INDICATION: abdl pain. COMPARISON: 02/07/2020 TECHNIQUE: Axial contrast-enhanced images from the lung bases to the pubic symphysis using 100 cc Isovue 370 intravenous contrast material. Coronal and sagittal reformations obtained. This CT examination was performed using the following dose reduction techniques: Automated exposure control, adjustment of mA and/or kv according to the patient's size, and the use of iterative reconstruction technique. FINDINGS: High-grade small bowel obstruction is appreciated which appears to be due to an anterior somewhat multi compartmentalized ventral hernia containing multiple loops of dilated fluid-filled small bowel as well as single loop of fecalized small bowel and collapsed exiting efferent distal/terminal ileum. The colon is relatively unremarkable. A small amount of free fluid is noted within the above-mentioned ventral hernia. No free air is identified to suggest perforation and there is no evidence for drainable collection/abscess. Liver, spleen, pancreas, gallbladder, bilateral adrenal glands and kidneys are normal. Pelvis demonstrates a markedly enlarged multilobulated myomatous uterus measuring greater than 15 x 14 x 10 cm. Bladder is unremarkable. No significant ascites. No obvious adenopathy. Abdominal aorta and branch vessels are normal. Musculoskeletal structures without acute osseous abnormality. Lung bases are clear. IMPRESSION: 1. High-grade small bowel obstruction appears to be secondary to large ventral hernia as described above. No free air or significant free fluid to suggest perforation. 2. Significantly enlarged multilobulated myomatous uterus. <Electronically signed by Diaz Matthew > 07/03/20 0933
[2020-07-03] MEDS ORDERED: PIPERACILLIN/TAZOBACTAM SOD 4.5 GM in D5W MINI-BAG PLUS 50 ML IV ONE (09:55)
[2020-07-03] MEDS ORDERED: IBUP-1114 PO (10:37)
[2020-07-03] MEDS ORDERED: GABA-1171 PO (10:37)
[2020-07-03] MEDS ORDERED: METH-1164 PO (10:37)
[2020-07-03] MEDS ORDERED: DEXTROSE 50% 50 ML SYRINGE IV PRN ×2 (10:45→11:30)
[2020-07-03] MEDS ORDERED: GLUCOSE 4GM CHEW TABLET PO PRN ×2 (10:45→11:30)
[2020-07-03] MEDS ORDERED: GLUCAGON INJ 1MG VIAL SC PRN ×2 (10:45→11:30)
--- NOTE | 2020-07-03 11:48 | HPEPDOC ---
[facility] Medical History & Physical Date of Admission July 03, 2020 Date of Service: July 03, 2020 History and Physical CHIEF COMPLAINT: Abdominal pain, nausea, vomiting today, 2 hours prior to coming to the emergency room HISTORY OF PRESENT ILLNESS: 44-year-old female with history of hypertension, diabetes, obstructive sleep apnea on BiPAP 1810. Frequent hospitalizations for small bowel obstruction, status post ventral hernia repair, hypothyroidism, hepatomegaly, class IV. Obesity, BMI 56.8, PTSD, bipolar disorder, history of major depression with suicidal ideation requiring hospitalizations and questionable history of childhood lymphoma incarcerated ventral hernia repair 2013 and 2016 with elective recurrent hernia repair 2014 presents to emergency room with acute onset of abdominal pain, nausea, nonprojectile, nonbilious vomiting x3 , 2 hours prior to coming to the emergency room without fever, chills, cough, shortness of breath, palpitations bright red blood per rectum, melena, black tarry stools. Patient also noted vaginal bleeding profusely today. She denied any nonsteroidal anti-inflammatory use prior to coming into the hospital. In the emergency room, CT abdomen and pelvis showed a high-grade small bowel obstruction with myomatous uterus, large ventral hernia. General surgeon, Dr Cox has been consulted. Patient has been kept on nothing by mouth status, IV fluids, pain medications and nasogastric tube suctioning. Patient continues to have vaginal bleeding with CT showing myomatous uterus. Ultrasound non-OB pelvic has been ordered and still pending. Hemoglobin remains stable. Patient does not appear to be orthostatic and still complains of tendinitis and 10 pain in the abdomen with blood pressure 160/110. Hospitalist was asked to admit the patient for small bowel obstruction. Acute blood loss secondary to vaginal bleeding and uncontrolled hypertension. PAST MEDICAL HISTORY: Small bowel obstruction status post ventral hernia repair, obstructive sleep apnea, BiPAP 1810. Questionable history of childhood lymphoma might major depressive disorder with suicidal ideation requiring hospitalizations, hypothyroidism, type 2 diabetes, not insulin-dependent, hepatomegaly, class IV. Obesity, PTSD, bipolar disorder PAST SURGICAL HISTORY: Elective recurrent hernia repair 2014 incarcerated ventral hernia repair 2013 2016. 5. 1. Tonsillectomy SOCIAL HISTORY: Smokes a half a pack of cigarettes. Denies alcohol, recreational drug use but has history of marijuana, opiate abuse. Lives in [place] currently unemployed FAMILY HISTORY: Asthma, cervical cancer, breast cancer ALLERGIES: Please see below. REVIEW OF SYSTEMS: 10 point review of systems negative aside from positive findings on history of presenting illness HOME MEDICATIONS: Please see below. PHYSICAL EXAMINATION: VITAL SIGNS: See below GENERAL APPEARANCE: Awake, alert, oriented 3, answering questions appropriately, lying on the left position HEENT: No JVD, no thyromegaly. Voice mucous membranes. Nasogastric tube to continuous suctioning CARDIOVASCULAR: S1, S2, sinus rhythm, no murmurs, rubs or gallops LUNGS: Clear to auscultation. No wheezing, rales or rhonchi. Air entry is equal bilaterally ABDOMEN: Obese, soft, slightly distended, hypoactive bowel sounds. No rebound, guarding GENITOURINARY: Vaginal bleeding EXTREMITIES: No cyanosis, clubbing. Skin warm, dry, well perfused LABORATORY DATA: See below. IMAGING: See below MICROBIOLOGY: Please see below. ASSESSMENT: 44-year-old female with history of hypertension, diabetes, obstructive sleep apnea on BiPAP 1810. Frequent hospitalizations for small bowel obstruction, status post ventral hernia repair, hypothyroidism, hepatomegaly, class IV. Obesity, BMI 56.8, PTSD, bipolar disorder, history of major depression with suic idal ideation requiring hospitalizations and questionable history of childhood lymphoma incarcerated ventral hernia repair 2013 and 2017 with elective recurrent hernia repair 2014 presents to emergency room with acute onset of abdominal pain, nausea, nonprojectile, nonbilious vomiting x3 , 2 hours prior to coming to the emergency room without fever, chills, cough, shortness of breath, palpitations bright red blood per rectum, melena, black tarry stools. Patient also noted vaginal bleeding profusely today. She denied any nonsteroidal anti- inflammatory use prior to coming into the hospital. In the emergency room, CT abdomen and pelvis showed a high-grade small bowel obstruction with myomatous uterus, large ventral hernia. General surgeon, Dr Cox has been consulted. Patient has been kept on nothing by mouth status, IV fluids, pain medications and nasogastric tube suctioning. Patient continues to have vaginal bleeding with CT showing myomatous uterus. Ultrasound non-OB pelvic has been ordered and still pending. Hemoglobin remains stable. Patient does not appear to be orthostatic and still complains of tendinitis and 10 pain in the abdomen with blood pressure 160/110. Hospitalist was asked to admit the patient for small bowel obstruction. Acute blood loss secondary to vaginal bleeding and uncontrolled hypertension. Recurrent small bowel obstruction secondary to incarcerated hernia, -Nothing by mouth status, IV fluids, antiemetics. Surgical consult. Nasogastric tube suctioning. Monitor for electrolytes hypertension, uncontrolled -Due to nothing by mouth status, the patient has been given nitroglycerin ointment Q6 hourly with holding parameters diabetes -Due to nothing by mouth status. Patient will be given D5 half normal saline after fluid boluses are completed. Hypoglycemic protocol fingersticks every 6 hourly with [facility] protocol sliding scale coverage obstructive sleep apnea on BiPAP 1810. -franki protocol -resume home bipap settings if tolerated with ng tube -supplemental oxygen if bipap mask cannot be placed due to ng tube hypothyroidism iv synthroid hepatomegaly, class IV. Obesity, BMI 56.8, complicating care PTSD, bipolar disorder, history of major depression with suicidal ideation no acute symptoms vaginal bleeding/myomatous uterus type and screen transfuse as needed for symptomatic anemia or hgb<8 pelvic us. if persists, dry cleaning manager consult. dvt prophylaxis compression stockings Vital Signs Vital Signs Date Time Temp Pulse Resp B/P (MAP) Pulse Ox O2 Delivery O2 Flow Rate FiO2 07/03/20 10:52 18 07/03/20 08:56 96.8 102 160/110 (127) 98 Room Air Laboratory Data Labs 24H Laboratory Tests 2 07/03/20 08:30: POC Beta HCG, Quantitative < 5.0 07/03/20 08:33: Immature Granulocyte % (Auto) 0.7, Neutrophils (%) (Auto) 88.9H, Lymphocytes (%) (Auto) 6.2L, Monocytes (%) (Auto) 3.2, Eosinophils (%) (Auto) 0.6, Basophils (%) (Auto) 0.4, Neutrophils # (Auto) 21.4H, Lymphocytes # (Auto) 1.5, Monocytes # (Auto) 0.8, Eosinophils # (Auto) 0.1, Basophils # (Auto) 0.1, Nucleated Red Blood Cells % (auto) 0.0, POC Glucose (Misc Panel) 435H, POC Sodium (Misc Panel) 133L, POC Potassium (Misc Panel) 4.1, POC Chloride (Misc Panel) 102, POC Total CO2 (Misc Panel) 24.0, POC Blood Urea Nitrogen (Misc Panel 12, POC Ionized Calc ium (Misc Panel) 4.5, POC Creatinine (Misc Panel) 0.3L, POC Hematocrit (Misc Panel) 47.0, Lactic Acid Level 1.7, Total Bilirubin 0.4, Direct Bilirubin 0.1, Aspartate Amino Transf (AST/SGOT) 9, Alanine Aminotransferase (ALT/SGPT) 16, Alkaline Phosphatase 96, Total Creatine Kinase 51, Creatine Kinase MB 1.3, Creatine Kinase MB Relative Index 2.55, Troponin I < 0.02, Total Protein 7.5, Albumin 3.7, Albumin/Globulin Ratio 1.0L, Amylase Level 29, Lipase 72L 07/03/20 09:04: Prothrombin Time 12.8, Prothromb Time International Ratio 0.94, Activated Partial Thromboplast Time 25.3 07/03/20 09:35: Urine Color REDH, Urine Appearance CLOUDYH, Urine pH 6.0, Urine Specific [place] 1.043, Urine Protein 2+H, Urine Glucose (UA) 3+H, Urine Ketones 1+H, Urine Blood 3+H, Urine Nitrite NEGATIVE, Urine Bilirubin NEGATIVE, Urine Urobilinogen 0.2, Urine Leukocyte Esterase NEGATIVE, Urine WBC (Auto) 43H, Urine RBC (Auto) TNTCH, Urine Hyaline Casts (Auto) 0, Urine Bacteria (Auto) NEGATIVE, Urine Squamous Epithelial Cells 1, Urine Sperm (Auto) CBC/BMP Laboratory Tests 07/03/20 08:33 Microbiology Microbiology 07/03/20 Respiratory Virus Panel (PCR) (VIRY) - Final, Complete 07/03/20 Urine Culture, Received Pending 07/03/20 Blood Culture, Received Pending 07/03/20 Blood Culture, Received Pending Home Medications Scheduled Gabapentin (Gabapentin) 100 Mg Capsule, 100 MG PO TID Methocarbamol (Methocarbamol) 500 Mg Tablet, 500 MG PO TID Scheduled PRN Ibuprofen (Ibuprofen) 400 Mg Tablet, 400 MG PO TID PRN for PAIN Allergies Coded Allergies: shellfish derived (Verified Allergy, Intermediate, hives, 09/11/19) Amarjit (Verified Allergy, Mild, RASH, 02/07/20) SEAFOOD (Verified Allergy, Mild, RASH, 02/07/20) A-FIB/CHADSVASC A-FIB History Current/History of A-Fib/PAF?: No Current PO Anticoag Therapy: No Age/Risk Factor Scoring CHADSVASC: CHADSVASC Response (Comments) Value Age Risk Factor Age < 65 years old 0 Gender Risk Factor Female 1 Hx of CHF No 0 Hx of HTN Yes 1 Hx of Stroke/TIA/or VTE No 0 Hx of Diabetes Yes 1 Hx of Vascular Disease No 0 Total 3 Treatment Treatment ordered: NONE Reason Anticoagulant not given: Not indicated/[id number] BRICE SAMS MD July 03, 2020 11:32
--- NOTE | 2020-07-03 11:56 | REP ---
INDICATION: VAGINAL BLEEDING COMPARISON: None. TECHNIQUE: Transabdominal pelvic ultrasound followed by transvaginal examination for better evaluation of the endometrium and adnexa with color Doppler evaluation of the ovaries. FINDINGS: Bladder is unremarkable and measures 7.7 x 7.1 x 5.0 cm. Heterogeneous markedly enlarged myomatous uterus measures roughly 12.8 x 7.5 x 6.7 cm. Multiple fibroids are identified including calcified fibroid at the fundus measuring 4 cm maximal diameter as well as heterogeneous fundal and lower uterine segment fibroids measuring 5.1 cm and 7.0 cm maximal diameter respectively. Portions of the endometrial complex are normal and measure 4.4 mm diameter although evaluation is limited due to mass effect from surrounding fibroids. No free fluid. Ovaries not visualized. IMPRESSION: Enlarged myomatous uterus. No free fluid. Ovaries not visualized. <Electronically signed by Diaz Matthew > 07/03/20 [id number]
[2020-07-03] MEDS ORDERED: MORPHINE 10 MG/ML 1ML VIAL (J2270) IV ONE (12:15)
--- NOTE | 2020-07-03 13:23 | ECGEPIP ---
[facility] - ED Test Date: 2020-07-03 Pat Name: ARNOLDO CLAROS Department: Room: - Gender: Female [employer]: KIZZY : 1975 Requested By: Jose Lugo Order Number: [id number] Reading MD: Jose Lugo Measurements Intervals [place] Rate: 111 P: 58 AK: 148 QRS: -16 QRSD: 84 T: 81 QT: 352 QTc: 478 Interpretive Statements Sinus tachycardia Right atrial enlargement Moderate voltage criteria for LVH, may be normal variant ( R in aVL , Demteris pr product ) leftward axis Delayed R wave progression - possible anterior wall infarction, age indetermintate 02/07/[address] T wave changes Electronically Signed on 07-03-2020 13:22:44 EDT by Jose Lugo
[2020-07-03] MEDS: PANTOPRAZOLE 40MG VIAL (C9113 PER 1) IV SCH (13:45)
[2020-07-03] MEDS ORDERED: MORPHINE 4 MG/ML 1ML VIAL/SYRINGE (J2270) IV PRN (14:00)
[2020-07-03] MEDS: NITROGLYCERIN 2% OINT 1 GM *U/D* PKT TOP SCH ×2 (14:30→18:00)
[2020-07-03] MEDS: HumaLOG INSULIN (NovoLOG) PER UNIT SC SCH ×2 (14:31→18:10)
[2020-07-03 15:32] VITALS: BP 169/100
[2020-07-03 15:35] VITALS: BP 160/100
[2020-07-03] MEDS: ONDANSETRON 4MG/2ML VIAL IV SCH ×2 (15:54→20:40)
[2020-07-03] MEDS: D5W/0.45% SODIUM CHLORIDE 1,000 ML IV SCH (15:54)
[2020-07-03] MEDS ORDERED: NALOXONE INJ 0.4MG/1ML VIAL (J2310 PER 1MG) IV PRN (15:55)
[2020-07-03] MEDS ORDERED: NS 1,000 ML IV SCH (15:55)
[2020-07-03] MEDS ORDERED: diphenhydrAMINE 50MG/ML VIAL (J1200) IV PRN (15:55)
[2020-07-03] MEDS ORDERED: EPIDURAL/PCA KEYS XX PRN (15:55)
[2020-07-03] MEDS ORDERED: HYDROMORPHONE HCL 0.5 MG/ 0.5 ML SYRINGE (J1170 PER 1) IV ONE (16:15)
[2020-07-03 18:00] VITALS: BP 128/79
[2020-07-03] MEDS: PIPERACILLIN/TAZOBACTAM SOD 4.5 GM in D5W MINI-BAG PLUS 50 ML IV SCH (18:10)
[2020-07-03] MEDS: MORPHINE 1MG/ML IN 0.9% NACL 100ML IV BAG IV PRN (18:57)
[2020-07-03 20:39] VITALS: BP 123/79
[2020-07-04] MEDS: HumaLOG INSULIN (NovoLOG) PER UNIT SC SCH ×4 (00:30→18:08)
[2020-07-04] MEDS: PIPERACILLIN/TAZOBACTAM SOD 4.5 GM in D5W MINI-BAG PLUS 50 ML IV SCH ×4 (00:30→18:08)
[2020-07-04] MEDS: D5W/0.45% SODIUM CHLORIDE 1,000 ML IV SCH (02:42)
[2020-07-04] MEDS: ONDANSETRON 4MG/2ML VIAL IV SCH ×4 (02:42→20:49)
[2020-07-04] MEDS: NITROGLYCERIN 2% OINT 1 GM *U/D* PKT TOP SCH ×4 (05:31→18:00)
[2020-07-04 05:46] VITALS: BP 111/65
[2020-07-04 07:56] LABS: HEMATOCRIT 39.8 % (36.0-47.0); MEAN CORPUSCULAR HEMOGLOBIN 29.1 pg (27.0-33.0); MEAN CORPUSCULAR HGB CONC 33.2 g/dl (32.0-36.5); MEAN CORPUSCULAR VOLUME 87.7 fl (80.0-96.0); PLATELET COUNT, AUTOMATED 333 10^3/uL (150-450); RED BLOOD COUNT 4.54 10^6/uL (4.00-5.40); WHITE BLOOD COUNT 5.5 10^3/uL (4.0-10.0)
[2020-07-04 08:04] LABS: HEMOGLOBIN 13.2 g/dl (12.0-15.5)
[2020-07-04 08:24] LABS: BLOOD UREA NITROGEN 18 MG/DL (7-18); CALCIUM LEVEL 7.6 MG/DL (8.5-10.1); CARBON DIOXIDE LEVEL 27 MEQ/L (21-32); CHLORIDE LEVEL 106 MEQ/L (98-107); CREATININE FOR GFR 0.54 MG/DL (0.55-1.30); GLOMERULAR FILTRATION RATE > 60.0 (>58); GLUCOSE, FASTING 267 MG/DL (70-100); MAGNESIUM LEVEL 1.6 MG/DL (1.8-2.4); POTASSIUM SERUM 3.2 MEQ/L (3.5-5.1); SODIUM LEVEL 140 MEQ/L (136-145)
--- NOTE | 2020-07-04 08:39 | IPNPDOC ---
Text Note Date of Service The patient was seen on 07/04/20. NOTE No acute events overnight. She is tolerating the NGT in with bilious output st ill. Abd pain is gone now. She is passing flatus and had a large BM in the ER last evening before coming to the floor. No more since then. VSSAF NAD abd - soft, Nt, nd, there are still dilated loops of bowel within her hernia sack that are palpable. labs - below A) 44y/o female with SBO secondary to adhesions and a large ventral hernia P) sips and chips NGT to LIS ambulate in [place] will plan to clamp NG and start diet once the output clears up. Ahsan Cox DO VS,Fishbone, I+O VS, [place], I+O Laboratory Tests 07/04/20 06:53 Vital Signs Date Time Temp Pulse Resp B/P (MAP) Pulse Ox O2 Delivery O2 Flow Rate FiO2 07/04/20 05:46 98.1 88 16 111/65 (80) 91 Room Air I&O- Last 24 Hours up to 6 AM 07/04/20 06:00 Intake Total 2250 ml Output Total 2050 ml Balance 200 ml JODY COX DO July 04, 2020 08:39
--- NOTE | 2020-07-04 08:54 | REP ---
INDICATION: sbo COMPARISON: 06/05/2020 TECHNIQUE: Two supine views of the abdomen and pelvis. FINDINGS: Nasogastric tube is identified with its side port above the diaphragm and requires advancement. The bowel gas pattern is nonspecific although there appears to be a moderately distended air-filled loop of small bowel in the mid abdomen raising the possibility of early obstruction. Calcified fibroid in the pelvis. No organomegaly. Skeletal structures intact. IMPRESSION: 1. Nasogastric tube requires advancement. 2. Bowel gas pattern is nonspecific although a single dilated air-filled loop of small bowel is noted and raises the possibility of early obstruction. Close clinical observation is warranted. <Electronically signed by Diaz aMtthew > 07/04/20 3505
[2020-07-04] MEDS: PANTOPRAZOLE 40MG VIAL (C9113 PER 1) IV SCH (09:14)
[2020-07-04 10:00] VITALS: BP 125/72
--- NOTE | 2020-07-04 10:14 | REP ---
INDICATION: ng tube advanced. COMPARISON: Recent abdominal x-ray dated 07/04/2020 at 8:04 a.m. TECHNIQUE: Portable AP view of the chest FINDINGS: The nasogastric tube is again identified with its side port above the level of the diaphragm and advancement is warranted. Mediastinum and cardiac silhouette along with the bilateral lung thomas are stable and without obvious acute process. Skeletal structures are intact. IMPRESSION: Nasogastric tube with side port above the diaphragm warrants continued advancement. <Electronically signed by Diaz Matthew > 07/04/20 [id number]
--- NOTE | 2020-07-04 11:27 | REP ---
INDICATION: ng tube advanced. check placement COMPARISON: None. TECHNIQUE: Portable AP view of the chest FINDINGS: Nasogastric tube courses below the left hemidiaphragm in satisfactory position. The mediastinum and cardiac silhouette are stable. Lung thomas demonstrate chronic changes similar to prior examinations. No focal consolidation, obvious effusion, or pneumothorax. IMPRESSION: Nasogastric tube in satisfactory position. Stable appearance to the mediastinum and bilateral lung thomas. <Electronically signed by Diaz Matthew > 07/04/20 [id number]
[2020-07-04 12:00] VITALS: BP 126/75
[2020-07-04] MEDS ORDERED: MAG SULF 1GM/100ML (MAG RUN) 1 GM in IV 1 EA IV ONE (12:00)
[2020-07-04] MEDS: KCL 40MEQ IN D5/0.45NS 1000ML 1,000 ML IV SCH ×2 (12:32→20:50)
--- NOTE | 2020-07-04 13:17 | CR ---
CONSULTATION DATE: 07/03/2020 REASON FOR CONSULTATION: Abdominal pain and small bowel obstruction. HISTORY OF PRESENT ILLNESS: Patient is a 44-year-old female, well-known to our surgical service. She has history of ventral hernia repair in the past, now has a large incarcerated ventral hernia that she has had for many years. She has had numerous hospitalizations for this. She has left against medical advice (AMA) almost every single time. We have offered to fix it for her in the office numerous times, but she has yet to come to the office to be evaluated and have surgery scheduled. She presents again this time with some nausea, vomiting and severe abdominal pains. She also has been having some vaginal bleeding and she was concerned when she came in that she could have been . In the emergency room, a CT was done that showed a high grade small bowel obstruction related to her hernia as well as a large uterus. I was called to evaluate her for her bowel obstruction. PAST MEDICAL HISTORY: 1. Small bowel obstructions. 2. Obstructive sleep apnea. 3. Major depression with suicidal ideation. 4. Hypothyroidism. 5. Diabetes. 6. Obesity. 7. Posttraumatic stress disorder (PTSD). 8. Bipolar. PAST SURGICAL HISTORY: 1. Recurrent ventral hernia repair done in 2014. 2. Hernia repair done in 2013, 2016. 3. Five abortions. 4. One (C) section. 5. Tonsillectomy. SOCIAL HISTORY: She smokes 1/2 pack of cigarettes a day. Denies alcohol or drugs. FAMILY HISTORY: Noncontributory. ALLERGIES: OLEGARIO, SEAFOOD. MEDICATIONS: Please see medication reconciliation. REVIEW OF SYSTEMS: As per positives and negatives in the history of present illness (HPI) PHYSICAL EXAMINATION: GENERAL: Alert and oriented times three. No acute distress. VITAL SIGNS: Temperature 96.8, pulse 102, respirations 20, blood pressure 160/110, pulse oximetry 98% on room air. HEENT: Pupils are equal, round and reactive to light and accommodation. HEART: S1, S2. Regular rate and rhythm. LUNGS: Clear to auscultation bilaterally. ABDOMEN: Soft, distended, tender to palpation diffusely. No rebound or guarding. EXTREMITIES: No clubbing, cyanosis or edema. LABORATORY DATA: White count 24, hemoglobin 15.5, platelets 421. Lactic acid 1.7 IMAGING DATA: CT abdomen and pelvis showed a high grade small bowel obstruction secondary to a large ventral hernia. No free air or free fluid to suggest perforation. Significantly enlarged multilobulated myomatous uterus. ASSESSMENT AND PLAN: Patient is a 44-year-old female currently with vaginal bleeding as well as abdominal pains secondary to small bowel obstruction within a large ventral hernia sac. This is likely not related to the hernia itself, but to the adhesions within it. Recommendation at this time is to treat with medical management, nasogastric (NG) tube, decompression, intravenous (IV) fluids and antibiotics. We will continue this management for the next 48-72 hours, as long as she is stable. If she does not improve beyond that, then we will discuss laparoscopic lysis of adhesions and then will attempt to see Dr. Sanchez again in the office to discuss repair of this hernia. All of her questions were answered.
[2020-07-04 16:56] VITALS: BP 119/72
--- NOTE | 2020-07-04 17:27 | IPN ---
PROGRESS NOTE DATE: 07/04/2020 Patient continues to have persistent nausea, abdominal pain. Gastric output yesterday via nasogastric tube was 1.2 liters, bilious material. Patient still complains of 7/10 pain diffusely across the abdomen without fever or chills overnight. Requesting celi river this morning. Patient was given ice chips by general surgery, Dr. Cox. No other issues overnight aside from nasogastric tube needing to be advanced this morning. Repeat chest x-ray shows adequate positioning. PHYSICAL EXAMINATION: Temperature 98.1, pulse 81, respiratory rate 18, blood pressure 126/75, 91% on room air. Generally: Awake, alert, oriented to person, place, and time. Nasogastric tube now on intermittent suctioning with bilious material noted in the gastric drainage. No use of respiratory accessory muscles. No pallor, icterus, or jaundice. HEENT: Dry mucous membranes. No jugular venous distension (JVD), thyromegaly. Thick neck. Lungs: Clear to auscultation, no wheezing, rales, or rhonchi. Heart: S1, S2, sinus rhythm. Abdomen: Distended, hypoactive bowel sounds, no rebound or guarding. Extremities: No cyanosis or clubbing. Laboratory data and imaging studies have been reviewed. ASSESSMENT AND PLAN: 44-year-old female with history of hypertension, diabetes, obstructive sleep apnea (NICA) on chronic bilevel positive airway pressure (BIPAP) 20/01 with frequent hospitalizations for small bowel obstruction with history of ventral hernia repair, hypothyroidism, hepatomegaly, class IV obesity, body mass index (BMI) of 56.8, posttraumatic stress disorder (PTSD), bipolar disorder, major depression with suicidal ideation requiring hospitalization and questionable childhood lymphoma with incarcerated ventral hernia in 2013 and 2016 with hernia repair in 2014, presented to the emergency room with acute onset of abdominal pain, nausea, nonbilious vomiting and abdominal distention, was found to have high-grade small bowel obstruction, vaginal bleeding with negative ultrasound showing myomatous and fibroid uterus. Patient is admitted for the following issues: 1. High-grade recurrent small bowel obstruction secondary to incarcerated hernia with history of ventral hernia repair. Patient has been given nasogastric tube drainage overnight with decreased abdominal distention. She remains nothing by mouth with IV fluids, antiemetics. Surgery has been consulted and allowed her to have ice chips at the bedside. Patient is requesting for celi river but clinically still not significantly improved. We are continually monitoring her electrolytes and with low magnesium has been supplemented. 2. Uncontrolled hypertension. Currently better with nitroglycerin. She is currently not on oral diet as yet. Still on IV fluids. Patient controlled analgesic (CLAIM ADMINISTRATOR) pump. 3. Type 2 diabetes. On finger sticks every 6 hours, hypoglycemic protocol, and sliding scale with no signs of hypoglycemia. 4. Leukocytosis. Patient has been given intravenous Zosyn empirically. Now with normal white count without fever. 5. Hypokalemia secondary to nasogastric tube suctioning. Currently on dextrose 5% (D5) half-normal saline with potassium 40 mEq. Will repeat metabolic panel and magnesium to check for resolution of hypokalemia and hypomagnesemia. 6. Obesity. Body mass index (BMI) of 38.7 with obstructive sleep apnea. Patient is currently on a morphine IV patient controlled analgesic (CLAIM ADMINISTRATOR) pump for pain control but will need to monitor for worsening respiratory acidosis and possible hypercarbia. She currently appears to be at her baseline mentation with no respiratory distress. 7. History of severe depression, suicidal ideation, posttraumatic stress disorder (PTSD). Currently without any acute issues. She is off medications while nothing by mouth status. 8. Tobacco abuse. Tobacco cessation counseling has been provided. Deep venous thrombosis (DVT) prophylaxis with compression stockings since the patient may need to go to the operating room regarding her bowel obstruction. Code status is FULL CODE. Diet is nothing by mouth status. Compression stockings for deep venous thrombosis (DVT) prophylaxis. DISPOSITION: 2-3 more days of inpatient stay while the patient is still requiring nasogastric tube suctioning. [facility]
[2020-07-04 22:00] VITALS: BP 121/75
[2020-07-05] VITALS (8 sets, daily range): BP systolic 108–133; BP diastolic 67–91
[2020-07-05] MEDS: PIPERACILLIN/TAZOBACTAM SOD 4.5 GM in D5W MINI-BAG PLUS 50 ML IV SCH ×5 (00:54→23:57)
[2020-07-05] MEDS: HumaLOG INSULIN (NovoLOG) PER UNIT SC SCH ×5 (00:54→23:57)
[2020-07-05] MEDS: ONDANSETRON 4MG/2ML VIAL IV SCH ×4 (02:54→20:22)
[2020-07-05] MEDS: KCL 40MEQ IN D5/0.45NS 1000ML 1,000 ML IV SCH ×4 (05:01→22:20)
[2020-07-05] MEDS: MORPHINE 1MG/ML IN 0.9% NACL 100ML IV BAG IV PRN (05:45)
[2020-07-05] MEDS: NITROGLYCERIN 2% OINT 1 GM *U/D* PKT TOP SCH ×5 (06:00→23:57)
[2020-07-05 06:51] LABS: HEMATOCRIT 35.7 % (36.0-47.0); HEMOGLOBIN 11.6 g/dl (12.0-15.5); MEAN CORPUSCULAR HEMOGLOBIN 29.4 pg (27.0-33.0); MEAN CORPUSCULAR HGB CONC 32.5 g/dl (32.0-36.5); MEAN CORPUSCULAR VOLUME 90.4 fl (80.0-96.0); PLATELET COUNT, AUTOMATED 286 10^3/uL (150-450); RED BLOOD COUNT 3.95 10^6/uL (4.00-5.40); WHITE BLOOD COUNT 5.3 10^3/uL (4.0-10.0)
[2020-07-05 07:17] LABS: BLOOD UREA NITROGEN 14 MG/DL (7-18); CALCIUM LEVEL 7.6 MG/DL (8.5-10.1); CARBON DIOXIDE LEVEL 28 MEQ/L (21-32); CHLORIDE LEVEL 106 MEQ/L (98-107); CREATININE FOR GFR 0.49 MG/DL (0.55-1.30); GLOMERULAR FILTRATION RATE > 60.0 (>58); GLUCOSE, FASTING 232 MG/DL (70-100); MAGNESIUM LEVEL 1.9 MG/DL (1.8-2.4); POTASSIUM SERUM 3.6 MEQ/L (3.5-5.1); SODIUM LEVEL 140 MEQ/L (136-145)
--- NOTE | 2020-07-05 08:07 | IPNPDOC ---
Text Note Date of Service The patient was seen on 07/05/20. NOTE No acute events overnight. She is tolerating the NGT in with less bilious outp ut. She is passing flatus, but no more BMs. Denies abd pains. VSSAF NAD abd - soft, Nt, there are still dilated loops of bowel within her hernia sack that are palpable. labs - below A) 44y/o female with SBO secondary to adhesions and a large ventral hernia P) sips and chips NGT to LIS ambulate in [place] will attempt some laxatives this am to release the concentrated stool within her hernia sac will plan to clamp NG and start diet once the output clears up. Ahsan Cox DO VS,Jose J, I+O VS, Karole, I+O Laboratory Tests 07/05/20 06:20 Vital Signs Date Time Temp Pulse Resp B/P (MAP) Pulse Ox O2 Delivery O2 Flow Rate FiO2 07/05/20 06:00 98.2 71 17 122/73 (89) 96 Nasal Cannula 2.0 I&O- Last 24 Hours up to 6 AM 07/05/20 06:00 Intake Total 2805 ml Output Total 775 ml Balance 2030 ml JODY COX DO July 05, 2020 08:06
[2020-07-05] MEDS ORDERED: MAGNESIUM CITRATE 300 ML BTL PO ONE (08:15)
[2020-07-05] MEDS ORDERED: INFLUENZA QUADRIVALENT PF VACCINE 0.5ML SYRINGE IM ONE (09:00)
[2020-07-05] MEDS: PANTOPRAZOLE 40MG VIAL (C9113 PER 1) IV SCH (09:30)
--- NOTE | 2020-07-05 12:01 | IPNPDOC ---
Date Seen The patient was seen on 07/05/20. Progress Note SUBJECTIVE: , No nausea, vomiting. Still with abdominal discomfort this morning without fever, chills, no vaginal bleeding , No shortness of breath despite IV fluids Objective: Physical exam: Vital signs: See below Generally: Awake, alert, oriented to person, place, and time. Nasogastric tube now on intermittent suctioning with bilious material noted in the gastric drainage. No use of respiratory accessory muscles. No pallor, icterus, or jaundice. HEENT: Moist mucous membranes. No jugular venous distension (JVD), thyromegaly. Thick neck. Lungs: Clear to auscultation, no wheezing, rales, or rhonchi. Heart: S1, S2, sinus rhythm. Abdomen: Distended, hypoactive bowel sounds, no rebound or guarding. Extremities: No cyanosis or clubbing. Laboratory data and imaging studies have been reviewed. ASSESSMENT AND PLAN: 44-year-old female with history of hypertension, diabetes, obstructive sleep apnea (NICA) on chronic bilevel positive airway pressure (BIPAP) 20/01 with frequent hospitalizations for small bowel obstruction with history of ventral hernia repair, hypothyroidism, hepatomegaly, class IV obesity, body mass index (BMI) of 56.8, posttraumatic stress disorder (PTSD), bipolar disorder, major depression with suicidal ideation requiring hospitalization and questionable childhood lymphoma with incarcerated ventral hernia in 2013 and 2016 with hernia repair in 2014, presented to the emergency room with acute onset of abdominal pain, nausea, nonbilious vomiting and abdominal distention, was found to have high-grade small bowel obstruction, vaginal bleeding with negative ultrasound showing myomatous and fibroid uterus. Patient is admitted for the following issues: 1. High-grade recurrent small bowel obstruction secondary to incarcerated hernia with history of ventral hernia repair. Supportive care, general surgery consulted NG tube to intermittent suction 2. hypertension. Unable to provide by mouth medications well. Nasogastric tube is in place. Nitroglycerin as needed to control blood pressure 3. Type 2 diabetes. On finger sticks every 6 hours, hypoglycemic protocol, and sliding scale with no signs of hypoglycemia. 4. Leukocytosis. Patient has been given intravenous Zosyn empirically. Now with normal white count without fever. 5. Hypokalemia secondary to nasogastric tube suctioning., Resolved with supplementation 6. Obesity. Body mass index (BMI) of 38.7 with obstructive sleep apnea. Patient is currently on a morphine IV patient controlled analgesic (DOUGHNUT MACHINE OPERATOR HELPER) pump for pain control but will need to monitor for worsening respiratory acidosis and possible hypercarbia. She currently appears to be at her baseline mentation with no respiratory distress. 7. History of severe depression, suicidal ideation, posttraumatic stress disorder (PTSD). Currently without any acute issues. She is off medications while nothing by mouth status. 8. Tobacco abuse. Tobacco cessation counseling has been provided. Deep venous thrombosis (DVT) prophylaxis with compression stockings since the patient may need to go to the operating room regarding her bowel obstruction. Code status is FULL CODE. Diet is nothing by mouth status. Compression stockings for deep venous thrombosis (DVT) prophylaxis. VS, I&O, 24H, Fishbone Vital Signs/I&O Vital Signs Date Time Temp Pulse Resp B/P (MAP) Pulse Ox O2 Delivery O2 Flow Rate FiO2 07/05/20 10:26 98.1 89 20 133/91 (105) 95 Room Air 07/05/20 06:00 2.0 I&O- Last 24 Hours up to 6 AM 07/05/20 06:00 Intake Total 2805 ml Output Total 775 ml Balance 2030 ml Laboratory Data 24H LABS Laboratory Tests 2 07/04/20 12:20: Bedside Glucose (Misc Panel) 257H 07/04/20 16:55: Bedside Glucose (Misc Panel) 224H 07/05/20 00:46: Bedside Glucose (Misc Panel) 245H 07/05/20 05:45: Bedside Glucose (Misc Panel) 227H 07/05/20 06:20: Nucleated Red Blood Cells % (auto) 0.0, Anion Gap 6L, Glomerular Filtration Rate > 60.0, Calcium Level 7.6L, Magnesium Level 1.9 07/05/20 11:27: Bedside Glucose (Misc Panel) 263H CBC/BMP Laboratory Tests 07/05/20 06:20 Microbiology Microbiology 07/03/20 Respiratory Virus Panel (PCR) (VIRY) - Final, Complete 07/03/20 Urine Culture - Final, Complete 07/03/20 Blood Culture - Preliminary, Resulted No Growth after 48 hours. All Specime... 07/03/20 Blood Culture - Preliminary, Resulted No Growth after 48 hours. All Specime... BRICE SAMS MD July 05, 2020 11:58
[2020-07-06] MEDS: ONDANSETRON 4MG/2ML VIAL IV SCH ×4 (03:13→19:59)
[2020-07-06] MEDS: KCL 40MEQ IN D5/0.45NS 1000ML 1,000 ML IV SCH ×3 (04:57→19:59)
[2020-07-06] MEDS: PIPERACILLIN/TAZOBACTAM SOD 4.5 GM in D5W MINI-BAG PLUS 50 ML IV SCH ×3 (05:16→18:00)
[2020-07-06] MEDS: NITROGLYCERIN 2% OINT 1 GM *U/D* PKT TOP SCH ×3 (05:21→18:00)
[2020-07-06] MEDS: MORPHINE 1MG/ML IN 0.9% NACL 100ML IV BAG IV PRN (05:54)
[2020-07-06 06:00] VITALS: BP 130/79
[2020-07-06] MEDS: HumaLOG INSULIN (NovoLOG) PER UNIT SC SCH ×3 (06:02→18:00)
[2020-07-06 06:34] LABS: HEMATOCRIT 36.6 % (36.0-47.0); HEMOGLOBIN 11.7 g/dl (12.0-15.5); MEAN CORPUSCULAR HEMOGLOBIN 28.9 pg (27.0-33.0); MEAN CORPUSCULAR VOLUME 90.4 fl (80.0-96.0); PLATELET COUNT, AUTOMATED 274 10^3/uL (150-450); RED BLOOD COUNT 4.05 10^6/uL (4.00-5.40); WHITE BLOOD COUNT 6.3 10^3/uL (4.0-10.0)
[2020-07-06 06:57] LABS: BLOOD UREA NITROGEN 13 MG/DL (7-18); CALCIUM LEVEL 8.2 MG/DL (8.5-10.1); CARBON DIOXIDE LEVEL 31 MEQ/L (21-32); CHLORIDE LEVEL 101 MEQ/L (98-107); CREATININE FOR GFR 0.38 MG/DL (0.55-1.30); GLOMERULAR FILTRATION RATE > 60.0 (>58); GLUCOSE, FASTING 213 MG/DL (70-100); MAGNESIUM LEVEL 2.3 MG/DL (1.8-2.4); POTASSIUM SERUM 3.7 MEQ/L (3.5-5.1); SODIUM LEVEL 136 MEQ/L (136-145)
[2020-07-06 08:20] VITALS: BP 128/88
[2020-07-06] MEDS: PANTOPRAZOLE 40MG VIAL (C9113 PER 1) IV SCH (09:01)
--- NOTE | 2020-07-06 09:12 | IPNPDOC ---
Text Note Date of Service The patient was seen on 07/06/20. NOTE General Surgery Dr Cox. The patient states this morning she has some generalized abdominal discomfort and bloating. NG tube in place with 1630 mL output yesterday. Reports some flatus, but denies BM. VSSAF NAD, resting in bed NG tube in place Abdomen. Soft, still with distention. Reports generalized tenderness across the lower abdomen. No edema Labs, below. Assessment/plan. 44y/o female with SBO secondary to adhesions and a large ventral hernia Continue with sips and chips Continue with NGT to LIS, 1630 ML out yesterday greenish in color. Encourage ambulation IV fluids 150 mL per hour. Continue to monitor. VS,Fishbone, I+O VS, Fishbone, I+O Laboratory Tests 07/06/20 05:58 Vital Signs Date Time Temp Pulse Resp B/P (MAP) Pulse Ox O2 Delivery O2 Flow Rate FiO2 07/06/20 08:20 97.9 80 18 128/88 (101) 97 Nasal Cannula 2.0 I&O- Last 24 Hours up to 6 AM 07/06/20 05:59 Intake Total 4240 ml Output Total 3005 ml Balance 1235 ml Elayne Dunn July 06, 2020 09:12
[2020-07-06 14:00] VITALS: BP 133/81
[2020-07-06 18:00] VITALS: BP 133/81
--- NOTE | 2020-07-06 19:48 | IPNPDOC ---
Date Seen The patient was seen on 07/06/20. Progress Note SUBJECTIVE: No BM or passing of gas per patient. Abd pain persists with NG tube to IS, NPO, IVFs. Denies SOB, chest pain. OBJECTIVE: PHYSICAL EXAM: VS: Please see below GEN: Appears tired and uncomfortable laying in bed, AAOx 3 HEENT: AT/NC, moist mucous membranes. No jugular venous distension (JVD) Lungs: Clear to auscultation, no wheezing, rales, or rhonchi. Heart: S1, S2, sinus rhythm. Abdomen: Distended, hypoactive bowel sounds, no rebound or guarding, large protruding hernia in left abdominal wall Extremities: No cyanosis or clubbing. Neuro: AAOx 3, no focal deficits, CN intact LABORATORY: Please see below MICRO: UCx contaminated BCx x 2 sets: NG ASSESSMENT : 44-year-old female with history of hypertension, diabetes, obstructive sleep apnea (NICA) on chronic bilevel positive airway pressure (BIPAP), frequent hospitalizations for small bowel obstruction with history of ventral hernia repair, hypothyroidism, hepatomegaly, class IV obesity, body mass index (BMI) of 56.8, posttraumatic stress disorder (PTSD), bipolar disorder, major depression with suicidal ideation requiring hospitalization and questionable childhood lymphoma admitted for further treatme nt/management of high grade recurrent SBO. PLAN: SBO 2/2 to adhesions and ventral hernia -1600 out from NG tube/24 hrs, green in color -Hx of recurrent SBO -Sips and chips, NGT to IS, IVFS, NPO and encouraging ambulation, pain control, empiric abx -Surgery following closely, supportive care for now. HTN -Stable -Holding home PO meds DM type II -NPO -Q6H SSI with FS, hypoglycemic protocol Hypokalemia secondary to nasogastric tube suctioning- improved -C/w current KCL IVfs -F/u daily labs Hx depression/ suicidal ideation/ PTSD -No HI/SI -Resume home meds when able Tobacco abuse - Tobacco cessation counseling has been provided. GI px -PPI DVT px -teds, scds DISPOSITION: Surgery following closely. Plan is discharge home when medically improved. VS, I&O, 24H, Fishbone Vital Signs/I&O Vital Signs Date Time Temp Pulse Resp B/P (MAP) Pulse Ox O2 Delivery O2 Flow Rate FiO2 07/06/20 18:00 133/81 07/06/20 14:00 98.3 81 18 95 Room Air 07/06/20 10:30 2.0 I&O- Last 24 Hours up to 6 AM 07/06/20 06:00 Intake Total 3940 ml Output Total 3005 ml Balance 935 ml Laboratory Data 24H LABS Laboratory Tests 2 07/05/20 23:48: Bedside Glucose (Misc Panel) 287H 07/06/20 05:50: Bedside Glucose (Misc Panel) 193H 07/06/20 05:58: Nucleated Red Blood Cells % (auto) 0.0, Anion Gap 4L, Glomerular Filtration Rate > 60.0, Calcium Level 8.2L, Magnesium Level 2.3 07/06/20 11:32: Bedside Glucose (Misc Panel) 214H 07/06/20 16:57: Bedside Glucose (Misc Panel) 230H CBC/BMP Laboratory Tests 07/06/20 05:58 Microbiology Microbiology 07/03/20 Respiratory Virus Panel (PCR) (VIRY) - Final, Complete 07/03/20 Urine Culture - Final, Complete 07/03/20 Blood Culture - Preliminary, Resulted No Growth after 72 hours. All specime... 07/03/20 Blood Culture - Preliminary, Resulted No Growth after 72 hours. All specime... Cesilia Amezcua MD July 06, 2020 19:48
[2020-07-06 22:00] VITALS: BP 127/80
[2020-07-07] MEDS: PIPERACILLIN/TAZOBACTAM SOD 4.5 GM in D5W MINI-BAG PLUS 50 ML IV SCH ×4 (00:20→18:45)
[2020-07-07] MEDS: HumaLOG INSULIN (NovoLOG) PER UNIT SC SCH ×4 (01:06→18:46)
[2020-07-07] MEDS: KCL 40MEQ IN D5/0.45NS 1000ML 1,000 ML IV SCH ×4 (01:07→21:20)
[2020-07-07 02:00] VITALS: BP 122/76
[2020-07-07] MEDS: ONDANSETRON 4MG/2ML VIAL IV SCH ×4 (03:54→21:20)
[2020-07-07 06:27] VITALS: BP 123/78
[2020-07-07 06:54] LABS: HEMATOCRIT 35.3 % (36.0-47.0); HEMOGLOBIN 11.3 g/dl (12.0-15.5); MEAN CORPUSCULAR HEMOGLOBIN 28.6 pg (27.0-33.0); MEAN CORPUSCULAR VOLUME 89.4 fl (80.0-96.0); PLATELET COUNT, AUTOMATED 286 10^3/uL (150-450); RED BLOOD COUNT 3.95 10^6/uL (4.00-5.40); WHITE BLOOD COUNT 7.1 10^3/uL (4.0-10.0)
[2020-07-07 07:22] LABS: BLOOD UREA NITROGEN 10 MG/DL (7-18); CARBON DIOXIDE LEVEL 28 MEQ/L (21-32); CHLORIDE LEVEL 103 MEQ/L (98-107); CREATININE FOR GFR 0.32 MG/DL (0.55-1.30); GLOMERULAR FILTRATION RATE > 60.0 (>58); GLUCOSE, FASTING 181 MG/DL (70-100); POTASSIUM SERUM 4.3 MEQ/L (3.5-5.1); SODIUM LEVEL 137 MEQ/L (136-145)
[2020-07-07] MEDS: PANTOPRAZOLE 40MG VIAL (C9113 PER 1) IV SCH (08:38)
--- NOTE | 2020-07-07 09:33 | IPNPDOC ---
Text Note Date of Service The patient was seen on 07/07/20. NOTE General Surgery Dr Cox. The patient states tshe still has generalized abdominal discomfort and bloating. NG tube in place with 3020 mL output yesterday, but the patient is drinking celi river. Reports small amount flatus, but denies BM. VSSAF NAD, resting in bed NG tube in place Abdomen. still with distention. Still with generalized tenderness.. No edema Labs, please see below. Assessment/plan. 44y/o female with SBO secondary to adhesions and a large ventral hernia Continue with sips and chips Continue with NGT to LIS, tolerating small amounts celi river Have encouraged ambulation IV fluids 150 mL per hour. IV Zosyn The patient is reviewed and examined as per Dr. Sanchez this morning, update AXR. Further recommendations pending review of imaging. Continue to monitor. VS,Fishbone, I+O VS, Fishbone, I+O Laboratory Tests 07/07/20 06:21 Vital Signs Date Time Temp Pulse Resp B/P (MAP) Pulse Ox O2 Delivery O2 Flow Rate FiO2 07/07/20 06:27 97.6 73 18 123/78 (93) 97 Nasal Cannula 2.0 I&O- Last 24 Hours up to 6 AM 07/07/20 05:59 Intake Total 4015 ml Output Total 3220 ml Balance 795 ml Elayne Dunn July 07, 2020 09:33
[2020-07-07 10:00] VITALS: BP 150/88
[2020-07-07] MEDS: MORPHINE 1MG/ML IN 0.9% NACL 100ML IV BAG IV PRN (11:14)
[2020-07-07 14:00] VITALS: BP 149/87
--- NOTE | 2020-07-07 15:29 | IPNPDOC ---
Date Seen The patient was seen on 07/07/20. Progress Note SUBJECTIVE: Denies passing flatus for me but admitted later to surgery to be passing some. Abd pain persists with NG tube to IS, NPO, IVFs. Denies SOB, chest pain. OBJECTIVE: PHYSICAL EXAM: VS: Please see below GEN: Laying in bed, NAD, AAOx 3 HEENT: AT/NC, moist mucous membranes. No jugular venous distension (JVD) Lungs: Clear to auscultation, no wheezing, rales, or rhonchi. Heart: S1, S2, sinus rhythm. Abdomen: Distended, hypoactive bowel sounds, no rebound or guarding, large pr otruding hernia in left abdominal wall Extremities: No cyanosis or clubbing. Neuro: AAOx 3, no focal deficits, CN intact LABORATORY: Please see below MICRO: UCx contaminated BCx x 2 sets: NG IMAGING: Abd XR: f/u results ASSESSMENT : 44-year-old female with history of hypertension, diabetes, obstructive sleep apnea (NICA) on chronic bilevel positive airway pressure (BIPAP), frequent hospitalizations for small bowel obstruction with history of ventral hernia repair, hypothyroidism, hepatomegaly, class IV obesity, body mass index (BMI) of 56.8, posttraumatic stress disorder (PTSD), bipolar disorder, major depression with suicidal ideation requiring hospitalization and questionable childhood lymphoma admitted for further treatment/management of high grade recurrent SBO. PLAN: SBO 2/2 to adhesions and ventral hernia -3L out from NG tube/24 hrs, green in color -Hx of recurrent SBO -F/u repeat Abd XR today -C/w Sips and chips, NGT to IS, IVFS, encouraging ambulation, pain control, empiric abx -Surgery following closely HTN -Stable -Holding home PO meds DM type II -NPO -Q6H SSI with FS, hypoglycemic protocol Hypokalemia secondary to nasogastric tube suctioning-resolved -C/w current KCL IVFs -F/u daily labs Hx depression/ suicidal ideation/ PTSD -No HI/SI -Resume home meds when able Tobacco abuse - Tobacco cessation counseling has been provided. GI px -PPI DVT px -teds, scds DISPOSITION: Surgery following closely. Plan is discharge home when medically improved. VS, I&O, 24H, Fishbone Vital Signs/I&O Vital Signs Date Time Temp Pulse Resp B/P (MAP) Pulse Ox O2 Delivery O2 Flow Rate FiO2 07/07/20 14:00 97.2 78 19 149/87 (107) 95 Nasal Cannula 2.0 I&O- Last 24 Hours up to 6 AM 07/07/20 06:00 Intake Total 4015 ml Output Total 3220 ml Balance 795 ml Laboratory Data 24H LABS Laboratory Tests 2 07/06/20 16:57: Bedside Glucose (Misc Panel) 230H 07/07/20 00:33: Bedside Glucose (Misc Panel) 206H 07/07/20 06:21: Nucleated Red Blood Cells % (auto) 0.0, Anion Gap 6L, Glomerular Filtration Rate > 60.0, Calcium Level 8.0L, Magnesium Level 2.0 07/07/20 06:46: Bedside Glucose (Misc Panel) 190H 07/07/20 11:54: Bedside Glucose (Misc Panel) 190H CBC/BMP Laboratory Tests 07/07/20 06:21 Microbiology Microbiology 07/03/20 Respiratory Virus Panel (PCR) (VIRY) - Final, Complete 07/03/20 Urine Culture - Final, Complete 07/03/20 Blood Culture - Preliminary, Resulted No Growth after 72 hours. All specime... 07/03/20 Blood Culture - Preliminary, Resulted No Growth after 72 hours. All specime... Cesilia Amezcua MD July 07, 2020 15:29
--- NOTE | 2020-07-07 16:23 | REP ---
INDICATION: SBO. COMPARISON: 07/04/2020. TECHNIQUE: Two AP views abdomen and pelvis. FINDINGS: There are moderately dilated small bowel loops in the upper abdomen just to the left midline. Very small amount of air and fecal material seen distally in the colon, which is not distended. Nasogastric tube is in good position within the stomach. Calcified fibroid is again seen in the pelvis. IMPRESSION: Moderately dilated small bowel loops in the upper abdomen, compatible with small bowel obstruction diagnosed on CT 07/03/2020. <Electronically signed by Braydon Olson > 07/07/20 [id number]
[2020-07-07 18:00] VITALS: BP 151/91
[2020-07-07 22:00] VITALS: BP 150/92
[2020-07-08] VITALS (7 sets, daily range): BP systolic 137–158; BP diastolic 70–98
[2020-07-08] MEDS: PIPERACILLIN/TAZOBACTAM SOD 4.5 GM in D5W MINI-BAG PLUS 50 ML IV SCH ×3 (00:38→14:01)
[2020-07-08] MEDS: HumaLOG INSULIN (NovoLOG) PER UNIT SC SCH ×4 (00:46→19:46)
[2020-07-08] MEDS: ALBUTEROL SULFATE 2.5 MG/0.5 ML INH NEB SOLN NEB PRN ×2 (00:56→12:04)
--- NOTE | 2020-07-08 02:17 | REPVR ---
PROCEDURE INFORMATION: Exam: XR Chest Exam date and time: 07/08/20 (12:58am) Age: 44 years old Clinical indication: Dyspnea. Low sats. TECHNIQUE: Imaging protocol: Portable CXR Views: 1 view COMPARISON: Portable CXR of 07/04/20 FINDINGS: Comparison is made with a portable CXR done on 07/04/20. Large patient size. Prominent breast shadows. Stable cardiomegaly. Elevation of the right hemidiaphragm (unchanged). An enteric tube is again seen, with its tip in the midportion of the stomach. Hazy and streaky RLL opacity. The lung thomas are otherwise clear. No significant pleural effusions. IMPRESSION: Developing right basilar infiltrate. The lung thomas are otherwise clear. No pleural effusions. Enteric tube in place. Electronically signed by: Tawny Han On 07/08/2020 02:17:13 AM
[2020-07-08] MEDS: ONDANSETRON 4MG/2ML VIAL IV SCH ×4 (03:02→20:40)
[2020-07-08] MEDS: KCL 40MEQ IN D5/0.45NS 1000ML 1,000 ML IV SCH ×4 (04:30→20:42)
[2020-07-08 07:30] LABS: HEMATOCRIT 37.1 % (36.0-47.0); HEMOGLOBIN 12.1 g/dl (12.0-15.5)
[2020-07-08 07:32] LABS: HEMATOCRIT 37.4 % (36.0-47.0); HEMOGLOBIN 12.3 g/dl (12.0-15.5); MEAN CORPUSCULAR HGB CONC 32.9 g/dl (32.0-36.5); MEAN CORPUSCULAR VOLUME 88.2 fl (80.0-96.0); PLATELET COUNT, AUTOMATED 324 10^3/uL (150-450); RED BLOOD COUNT 4.24 10^6/uL (4.00-5.40); WHITE BLOOD COUNT 9.9 10^3/uL (4.0-10.0)
[2020-07-08 07:55] LABS: BLOOD UREA NITROGEN 7 MG/DL (7-18); CALCIUM LEVEL 8.3 MG/DL (8.5-10.1); CARBON DIOXIDE LEVEL 29 MEQ/L (21-32); CHLORIDE LEVEL 98 MEQ/L (98-107); CREATININE FOR GFR 0.39 MG/DL (0.55-1.30); GLOMERULAR FILTRATION RATE > 60.0 (>58); GLUCOSE, FASTING 171 MG/DL (70-100); MAGNESIUM LEVEL 1.5 MG/DL (1.8-2.4); POTASSIUM SERUM 4.4 MEQ/L (3.5-5.1); SODIUM LEVEL 133 MEQ/L (136-145)
[2020-07-08] MEDS: PANTOPRAZOLE 40MG VIAL (C9113 PER 1) IV SCH (08:50)
[2020-07-08 09:42] LABS: NT-PRO BNP 241 PG/ML (<125); TROPONIN I < 0.02 NG/ML (< 0.10)
[2020-07-08] MEDS ORDERED: ISOVUE-370 76% 100ML VIAL As Ordered ONE (13:08)
--- NOTE | 2020-07-08 13:58 | REP ---
INDICATION: incr SOB, r/o PE. COMPARISON: Comparison is made with chest x-ray from 08 Jul 2020 at 12:58 a.m... TECHNIQUE: Contrast dose: 75 ML of Isovue [address] technique: Helical scanning is acquired and overlapping 1.5 mm and contiguous 3 mm axial images are reformatted. In addition, maximum intensity projection and multiplanar re-formation images are generated in sagittal and coronal imaging projections. FINDINGS: There is good opacification in the pulmonary arterial tree. There is no evidence of vessel cut off or filling defect to suggest pulmonary embolus. Homogeneous opacity is seen in the thoracic aorta. There is no evidence of aneurysm or dissection. Lung window settings demonstrate extensive bilateral and progressive infiltrates throughout the lower lobes of the lungs bilaterally as well as subtle infiltrates involving the right middle lobe, right upper lobe, and left upper lobe lingula. These are much more extensive than infiltrates visible on chest x-ray July 08, 2020. In the upper abdomen, the patient's nasogastric tube can be seen terminating in the body of the stomach. There is no evidence of high hilar or mediastinal mass. No pleural or pericardial effusion is seen. IMPRESSION: No CT evidence of pulmonary embolus. Extensive bilateral progressive infiltrates consistent with pneumonia. NG tube tip in the stomach. <Electronically signed by Ignacio Godfrey > 07/08/20 [id number]
[2020-07-08] MEDS: ENOXAPARIN 40MG/0.4ML SYRINGE (J1650 PER 10MG) SC SCH (14:02)
--- NOTE | 2020-07-08 16:18 | IPNPDOC ---
Date Seen The patient was seen on 07/08/20. Progress Note SUBJECTIVE: Denies passing flatus today. Hypoxic suddenly overnight, concern was for aspiration. Increased O2 demand over today with desaturations in 70's with activity when on 3 L NC. Currently on 40% FiO2 venturi mask. CTA chest: No PE, extensive progressive infiltrates consistent with PNA while on Zosyn. Procalcitonin 0.30, will broaden abx. Abd pain persists with NG tube to IS, NPO, IVFs. Denies SOB, chest pain. OBJECTIVE: PHYSICAL EXAM: VS: Please see below GEN: Laying in bed, appears uncomfortable, SOB with speaking but AAOx 3 HEENT: AT/NC, moist mucous membranes. No jugular venous distension (JVD), venturi mask in place Lungs: Occasional rhonchi. No wheezing, rales Heart: S1, S2, sinus rhythm. Abdomen: Distended, hypoactive bowel sounds, no rebound or guarding, large protruding hernia in left abdominal wall Extremities: No cyanosis or clubbing. Neuro: AAOx 3, no focal deficits, CN intact LABORATORY: Please see below MICRO: F/u repeat COVID test UCx contaminated BCx x 2 sets: NG IMAGING: CTA chest: No CT evidence of pulmonary embolus. Extensive bilateral progressive infiltrates consistent with pneumonia. NG tube tip in the stomach. AbdxR 07/07/20: SBO ASSESSMENT : 44-year-old female with history of hypertension, diabetes, obstructive sleep apnea (NICA) on chronic bilevel positive airway pressure (BIPAP), frequent hospitalizations for small bowel obstruction with history of ventral hernia repair, hypothyroidism, hepatomegaly, class IV obesity, body mass index (BMI) of 56.8, posttraumatic stress disorder (PTSD), bipolar disorder, major depression with suicidal ideation requiring hospitalization and questionable childhood lymphoma admitted for further treatment/management of high grade recurrent SBO. PLAN: Acute hypoxic respiratory failure likely 2/2 to multifactorial from HCAP, poss component of aspiration PNA -CTA chest above -Currently saturating 94-96% on venturi mask, FiO2 50% . Attempts to wean down multiple times during the day then drops to 70's with activity -Concern for aspiration PNA -procalcitonin 0.30, BNP 200, trop neg -Stopping zosyn -COVID neg -Starting on meropenem, vancomycin and flagyl for broad spectrum coverage -F/u BCx and sputum cultures Recurrent SBO 2/2 to adhesions and ventral hernia -no BM or flatus overnight -Plan was for OR in the AM if respiratory status improves and if she agreed -C/w Sips and chips, NGT to IS, IVFS, encouraging ambulation, pain control, empiric abx -Surgery following closely HTN -Stable -Holding home PO meds DM type II -NPO -Q6H SSI with FS, hypoglycemic protocol Hypomagnesemia, acute -Mag run -F/u am labs Hx depression/ suicidal ideation/ PTSD -No HI/SI -Resume home meds when able Tobacco abuse - Tobacco cessation counseling has been provided. GI px -PPI DVT px -teds, scds Resolved: Hypokalemia secondary to nasogastric tube suctioning DISPOSITION: Surgery following closely. No OR if respiratory status remains like this or worsens. Plan is discharge home when medically improved. VS, I&O, 24H, Fishbone Vital Signs/I&O Vital Signs Date Time Temp Pulse Resp B/P (MAP) Pulse Ox O2 Delivery O2 Flow Rate FiO2 07/08/20 14:00 97.2 73 19 146/91 (109) 98 Venturi Mask 15.0 50 I&O- Last 24 Hours up to 6 AM 07/08/20 06:00 Intake Total 2670 ml Output Total 1500 ml Balance 1170 ml Laboratory Data 24H LABS Laboratory Tests 2 07/07/20 17:33: Bedside Glucose (Misc Panel) 178H 07/08/20 00:15: Bedside Glucose (Misc Panel) 189H 07/08/20 05:02: Bedside Glucose (Misc Panel) 205H 07/08/20 06:56: Nucleated Red Blood Cells % (auto) 0.0, Anion Gap 6L, Glomerular Filtration Rate > 60.0, Calcium Level 8.3L, Magnesium Level 1.5L 07/08/20 08:38: Troponin I < 0.02, MP-Xap-P-Type Natriuretic Peptide 241H, Procalcitonin 0.31 07/08/20 11:48: Bedside Glucose (Misc Panel) 175H 07/08/20 15:32: CBC/BMP Laboratory Tests 07/08/20 06:56 Microbiology Microbiology 07/03/20 Respiratory Virus Panel (PCR) (VIRY) - Final, Complete 5/1/21 Urine Culture - Final, Complete 07/03/20 Blood Culture - Final, Complete NO GROWTH AFTER 5 DAYS 07/03/20 Blood Culture - Final, Complete NO GROWTH AFTER 5 DAYS Cesilia Amezcua MD July 08, 2020 16:18
[2020-07-08] MEDS: MEROPENEM INJ 1 GM in IV 1 EA IV SCH (16:59)
[2020-07-08] MEDS ORDERED: MAG SULF 1GM/100ML (MAG RUN) 1 GM in IV 1 EA IV ONE (17:30)
[2020-07-08] MEDS ORDERED: metroNIDAZOLE 500 MG in IV 1 EA IV SCH (18:00)
[2020-07-08] MEDS ORDERED: VANCOMYCIN HCL 1,000 MG, VIAL MATE ADAPTER 1 EACH in NS 250 ML IV ONE ×2 (19:00→20:00)
--- NOTE | 2020-07-08 22:14 | IPNPDOC ---
Text Note Date of Service The patient was seen on 07/08/20. NOTE Overnight she has developed some difficulty breathing. She is tolerating the NGT in, but she still has bilious output and no flatus or BM. No abd pains. I scheduled her for the OR tomorrow AM to take out her adhesions and relieve the obstruction. However, when I went to discuss that with her she was not interested at all, and wants to wait a few more days before considering surgery. I also discussed her with Dr. Amezcua who said she has bilateral pneumonia and would not be a good candidate for surgery right now anyway. VSSAF NAD abd - soft, Nt, there are still dilated loops of bowel within her hernia sack that are palpable. labs - below A) 44y/o female with SBO secondary to adhesions and a large ventral hernia bilateral pneumonia P) sips and chips NGT to LIS ambulate in [place] will discuss surgery with her again in the am, and will plan for it once her pneumonia clears up. Ahsan Cox DO VS,Jose J, I+O VS, Jose J, I+O Laboratory Tests 07/08/20 06:56 Vital Signs Date Time Temp Pulse Resp B/P (MAP) Pulse Ox O2 Delivery O2 Flow Rate FiO2 07/08/20 18:30 2.0 07/08/20 18:11 97.7 72 18 137/70 (92) 96 Nasal Cannula 07/08/20 14:00 50 I&O- Last 24 Hours up to 6 AM 07/08/20 06:00 Intake Total 2670 ml Output Total 1500 ml Balance 1170 ml JODY COX DO July 08, 2020 22:14
[2020-07-09 00:12] VITALS: BP 156/84
[2020-07-09] MEDS: HumaLOG INSULIN (NovoLOG) PER UNIT SC SCH ×4 (00:34→17:44)
[2020-07-09] MEDS: MEROPENEM INJ 1 GM in IV 1 EA IV SCH ×3 (00:38→17:47)
[2020-07-09 00:39] VITALS: BP 156/84
[2020-07-09] MEDS ORDERED: VANCOMYCIN HCL 1,000 MG, VIAL MATE ADAPTER 1 EACH in NS 250 ML IV SCH ×2 (01:15→03:00)
[2020-07-09] MEDS: ONDANSETRON 4MG/2ML VIAL IV SCH ×3 (03:38→16:06)
[2020-07-09] MEDS ORDERED: metroNIDAZOLE 500 MG in IV 1 EA IV SCH (04:00)
[2020-07-09 04:50] VITALS: BP 126/65
[2020-07-09 05:24] LABS: HEMATOCRIT 36.4 % (36.0-47.0); HEMOGLOBIN 11.8 g/dl (12.0-15.5); MEAN CORPUSCULAR HEMOGLOBIN 28.4 pg (27.0-33.0); MEAN CORPUSCULAR HGB CONC 32.4 g/dl (32.0-36.5); MEAN CORPUSCULAR VOLUME 87.7 fl (80.0-96.0); PLATELET COUNT, AUTOMATED 323 10^3/uL (150-450); RED BLOOD COUNT 4.15 10^6/uL (4.00-5.40)
[2020-07-09 05:51] LABS: BLOOD UREA NITROGEN 3 MG/DL (7-18); CALCIUM LEVEL 8.7 MG/DL (8.5-10.1); CARBON DIOXIDE LEVEL 33 MEQ/L (21-32); CHLORIDE LEVEL 99 MEQ/L (98-107); CREATININE FOR GFR 0.39 MG/DL (0.55-1.30); GLOMERULAR FILTRATION RATE > 60.0 (>58); GLUCOSE, FASTING 166 MG/DL (70-100); MAGNESIUM LEVEL 1.8 MG/DL (1.8-2.4); POTASSIUM SERUM 4.3 MEQ/L (3.5-5.1); SODIUM LEVEL 135 MEQ/L (136-145)
--- NOTE | 2020-07-09 07:36 | IPNPDOC ---
Text Note Date of Service The patient was seen on 07/09/20. NOTE Transferred to PCU last evening due to pneumonia. She appears much better this am. Denies any knowledge of pneumonia, and has no complaints with her breathing or coughing. She is tolerating the NGT, and would like it removed to see if she will feel better. She does not want surgery still. I explained to her again that she has a bowel obstruction and that I can't feed her, but she wants to remove the tube and try anyway. I will discuss this with Dr. Amezcua this am. VSSAF NAD abd - soft, Nt, there are still dilated loops of bowel within her hernia sack that are palpable. labs - below A) 44y/o female with SBO secondary to adhesions and a large ventral hernia bilateral pneumonia refusing surgery P) sips and chips NGT to LIS ambulate in [place] will hold off on surgery while she has pneumonia. I will discuss surgery with Dr. Amezcua to see if she can explained it to her differently. Ahsan Cox DO VS,Jose J, I+O VSJose J, I+O Laboratory Tests 07/09/20 05:10 Vital Signs Date Time Temp Pulse Resp B/P (MAP) Pulse Ox O2 Delivery O2 Flow Rate FiO2 07/09/20 04:50 97.0 73 20 126/65 (85) 96 Room Air 07/09/20 00:39 2.0 07/08/20 14:00 50 I&O- Last 24 Hours up to 6 AM 07/09/20 06:00 Intake Total 1675 ml Output Total 875 ml Balance 800 ml JODY COX DO July 09, 2020 07:36
[2020-07-09] MEDS: KCL 40MEQ IN D5/0.45NS 1000ML 1,000 ML IV SCH ×3 (07:59→17:47)
[2020-07-09 08:06] VITALS: BP 139/80
[2020-07-09] MEDS: MORPHINE 1MG/ML IN 0.9% NACL 100ML IV BAG IV PRN (08:47)
[2020-07-09] MEDS: VANCOMYCIN HCL 1,000 MG, VIAL MATE ADAPTER 1 EACH in NS 250 ML IV SCH ×2 (09:24→16:06)
[2020-07-09] MEDS: ENOXAPARIN 40MG/0.4ML SYRINGE (J1650 PER 10MG) SC SCH (09:24)
[2020-07-09] MEDS: PANTOPRAZOLE 40MG VIAL (C9113 PER 1) IV SCH (09:25)
[2020-07-09] MEDS ORDERED: MORPHINE 2 MG/ML 1ML VIAL (J2270) IV PRN (12:10)
[2020-07-09] MEDS ORDERED: KETOROLAC 30 MG/ML 1ML VIAL IV PRN (12:10)
--- NOTE | 2020-07-09 14:35 | IPNPDOC ---
Date Seen The patient was seen on 07/09/20. Progress Note SUBJECTIVE: Denies passing flatus or having BM today. Refusing surgery per Dr. Cox. Much improved respiratory status, currently on 2-3 L NC. D/lawson flagyl and kept on vancomycin and meropenem. Abd pain persists with NG tube to IS, IVFs. Denies SOB, chest pain. OBJECTIVE: PHYSICAL EXAM: VS: Please see below GEN: Laying in bed, NAD, AAOx 3 HEENT: AT/NC, moist mucous membranes. No jugular venous distension (JVD), venturi mask in place Lungs: Occasional rhonchi. No wheezing, rales Heart: S1, S2, sinus rhythm. Abdomen: Distended, hypoactive bowel sounds, no rebound or guarding, large protruding hernia in left abdominal wall Extremities: No cyanosis or clubbing. Neuro: AAOx 3, no focal deficits, CN intact LABORATORY: Please see below MICRO: repeat COVID neg UCx contaminated BCx x 2 sets: NG IMAGING: CTA chest: No CT evidence of pulmonary embolus. Extensive bilateral progressive infiltrates consistent with pneumonia. NG tube tip in the stomach. AbdxR 07/07/20: SBO ASSESSMENT : 44-year-old female with history of hypertension, diabetes, obstructive sleep apnea (NICA) on chronic bilevel positive airway pressure (BIPAP), frequent hospitalizations for small bowel obstruction with history of ventral hernia repair, hypothyroidism, hepatomegaly, class IV obesity, body mass index (BMI) of 56.8, posttraumatic stress disorder (PTSD), bipolar disorder, major depression with suicidal ideation requiring hospitalization and questionable childhood lymphoma admitted for further treatment/management of high grade recurrent SBO. PLAN: Acute hypoxic respiratory failure likely 2/2 to multifactorial from HCAP, poss component of aspiration PNA -Improved overnight and currently remains on 2-3 L NC, saturating well. -CTA chest above -procalcitonin 0.30, BNP 200, trop neg -COVID neg -D/c flagyl. C/w meropenem, vancomycin for broad spectrum coverage -F/u BCx and sputum cultures, MRSA Recurrent SBO 2/2 to adhesions and ventral hernia -no BM or flatus overnight -Plan was for OR today ;however, 1. patient is now refusing surgery and 2. with new MF PNA, will wait to offer -C/w Sips and chips, NGT to IS, IVFS, encouraging ambulation, OOBTC, pain contro l, empiric abx -Surgery following closely HTN -Stable -Holding home PO meds DM type II -NPO -Q6H SSI with FS, hypoglycemic protocol Hypomagnesemia, acute -Mag 1.8 -F/u am labs Hx depression/ suicidal ideation/ PTSD -No HI/SI -Resume home meds when able Tobacco abuse - Tobacco cessation counseling has been provided. GI px -PPI DVT px -teds, scds Resolved: Hypokalemia secondary to nasogastric tube suctioning DISPOSITION: Surgery following closely. No OR if respiratory status remains like this or worsens. Plan is discharge home when medically improved. VS, I&O, 24H, Fishbone Vital Signs/I&O Vital Signs Date Time Temp Pulse Resp B/P (MAP) Pulse Ox O2 Delivery O2 Flow Rate FiO2 07/09/20 08:06 97.7 79 18 139/80 (99) 95 Nasal Cannula 2.0 07/08/20 14:00 50 I&O- Last 24 Hours up to 6 AM 07/09/20 05:59 Intake Total 2415 ml Output Total 200 ml Balance 2215 ml Laboratory Data 24H LABS Laboratory Tests 2 07/08/20 15:32: Coronavirus (COVID-19)(PCR) NEGATIVE 07/08/20 18:57: Bedside Glucose (Misc Panel) 174H 07/09/20 00:12: Bedside Glucose (Misc Panel) 154H 07/09/20 05:10: Nucleated Red Blood Cells % (auto) 0.0, Anion Gap 3L, Glomerular Filtration Rate > 60.0, Calcium Level 8.7, Magnesium Level 1.8 07/09/20 06:28: Bedside Glucose (Misc Panel) 190H 07/09/20 12:32: Bedside Glucose (Misc Panel) 158H 07/09/20 13:02: CBC/BMP Laboratory Tests 07/09/20 05:10 Microbiology Microbiology 07/03/20 Respiratory Virus Panel (PCR) (VIRY) - Final, Complete 07/03/20 Urine Culture - Final, Complete 07/03/20 Blood Culture - Final, Complete NO GROWTH AFTER 5 DAYS 07/03/20 Blood Culture - Final, Complete NO GROWTH AFTER 5 DAYS Cesilia Amezcua MD July 09, 2020 14:35
[2020-07-09 16:00] VITALS: BP 170/81
--- NOTE | 2020-07-09 18:51 | DS.PDOC ---
Discharge Summary General Date of Admission July 03, 2020 at 10:43 Date of Discharge 07/09/20 Attending Physician: Cesilia Amezcua MD Discharge Summary DISCHARGE SUMMARY FOR PATIENT WHO LEFT AMA ON 07/09/20 HISTORY OF PRESENT ILLNESS: 44-year-old female with history of hypertension, diabetes, obstructive sleep apnea on BiPAP 1810. Frequent hospitalizations for small bowel obstruction, status post ventral hernia repair, hypothyroidism, hepatomegaly, class IV. Obesity, BMI 56.8, PTSD, bipolar disorder, history of major depression with suicidal ideation requiring hospitalizations and questionable history of childhood lymphoma incarcerated ventral hernia repair 2013 and 2016 with elective recurrent hernia repair 2014 presents to emergency room with acute onset of abdominal pain, nausea, nonprojectile, nonbilious vomiting x3 , 2 hours prior to coming to the emergency room without fever, chills, cough, shortness of breath, palpitations bright red blood per rectum, melena, black tarry stools. Patient also noted vaginal bleeding profusely today. She denied any nonsteroidal anti-inflammatory use prior to coming into the hospital. In the emergency room, CT abdomen and pelvis showed a high-grade small bowel obstruction with myomatous uterus, large ventral hernia. General surgeon, Dr Cox has been consulted. Patient has been kept on nothing by mouth status, IV fluids, pain medications and nasogastric tube suctioning. Patient continues to have vaginal bleeding with CT showing myomatous uterus. Ultrasound non-OB pelvic has been ordered and still pending. Hemoglobin remains stable. Patient does not appear to be orthostatic and still complains of tendinitis and 10 pain in the abdomen with blood pressure 160/110. Hospitalist was asked to admit the patient for small bowel obstruction. Acute blood loss secondary to vaginal bleeding and uncontrolled hypertension. HOSPITAL COURSE: Recurrent SBO 2/2 to adhesions and ventral hernia did not resolve, she had no reports of BM or flatus after the first day. per surgery, it was recommended to have surgery on 07/08/20 ;however patient refused and was also held due to increased respiratory issues 2/2 to HCAP. She was kept on sips and chips, NGT to IS, IVFS, encouraging ambulation, OOBTC, pain control, empiric abx. For acute hypoxic respiratory failure likely 2/2 to multifactorial from HCAP, poss component of aspiration PNA, she improved to NC on 07/09/20. Procalcitonin 0.30, BNP 200, trop neg, COVID neg. She was kept only on meropenem with BCx, MRSA pending. Sputum culture was ordered but she was not able to produce a sample. She was spoke with by myself and surgery on importance of surgery with rcurrent SBO, this time not resolving. I received word that on 07/09/20 later in the day patient ripped IV out and left AMA. Other chronic issues remained stable. PAST MEDICAL HISTORY: Small bowel obstruction status post ventral hernia repair, obstructive sleep apnea, BiPAP 1810. Questionable history of childhood lymphoma might major depressive disorder with suicidal ideation requiring hospitalizations, hypothyroidism, type 2 diabetes, not insulin-dependent, hepatomegaly, class IV. Obesity, PTSD, bipolar disorder PAST SURGICAL HISTORY: Elective recurrent hernia repair 2014 incarcerated ventral hernia repair 2013 2016. 5. 1. Tonsillectomy SOCIAL HISTORY: Smokes a half a pack of cigarettes. Denies alcohol, recreational drug use but has history of marijuana, opiate abuse. Lives in [place] currently unemployed FAMILY HISTORY: Asthma, cervical cancer, breast cancer DISCHARGE MEDICATIONS: Please see below PHYSICAL EXAM: VS: Please see below GEN: Laying in bed, NAD, AAOx 3 HEENT: AT/NC, moist mucous membranes. No jugular venous distension (JVD), NC in place Lungs: Occasional rhonchi. No wheezing, rales Heart: S1, S2, sinus rhythm. Abdomen: Distended, hypoactive bowel sounds, no rebound or guarding, large protruding hernia in left abdominal wall Extremities: No cyanosis or clubbing. Neuro: AAOx 3, no focal deficits, CN intact LABORATORY: Please see below MICRO: repeat COVID neg UCx contaminated BCx x 2 sets: NG Sputum cx not obtained IMAGING: CTA chest: No CT evidence of pulmonary embolus. Extensive bilateral progressive infiltrates consistent with pneumonia. NG tube tip in the stomach. AbdxR 07/07/20: SBO ASSESSMENT : 44-year-old female with history of hypertension, diabetes, obstructive sleep apnea (NICA) on chronic bilevel positive airway pressure (BIPAP), frequent hospitalizations for small bowel obstruction with history of ventral hernia repair, hypothyroidism, hepatomegaly, class IV obesity, body mass index (BMI) of 56.8, posttraumatic stress disorder (PTSD), bipolar disorder, major depression with suicidal ideation requiring hospitalization and questionable childhood lymphoma admitted for further treatment/management of high grade recurrent SBO. DIAGNOSES AT TIME OF LEAVING AMA: Acute hypoxic respiratory failure likely 2/2 to multifactorial from HCAP, poss component of aspiration PNA Recurrent SBO 2/2 to adhesions and ventral hernia HTN DM type II Hypomagnesemia, acute Hx depression/ suicidal ideation/ PTSD Tobacco abuse Resolved: Hypokalemia secondary to nasogastric tube suctioning DISPOSITION: LEFT AMA TIME SPENT ON DISCHARGE: 35 minutes. Vital Signs/I&Os Vital Signs Date Time Temp Pulse Resp B/P (MAP) Pulse Ox O2 Delivery O2 Flow Rate FiO2 07/09/20 16:00 98.7 86 18 170/81 (110) 95 Room Air 07/09/20 08:06 2.0 07/08/20 14:00 50 I&O- Last 24 Hours up to 6 AM 07/09/20 06:00 Intake Total 3315 ml Output Total 875 ml Balance 2440 ml Laboratory Data Labs 24H Laboratory Tests 2 07/08/20 18:57: Bedside Glucose (Misc Panel) 174H 07/09/20 00:12: Bedside Glucose (Misc Panel) 154H 07/09/20 05:10: Nucleated Red Blood Cells % (auto) 0.0, Anion Gap 3L, Glomerular Filtration Rate > 60.0, Calcium Level 8.7, Magnesium Level 1.8 07/09/20 06:28: Bedside Glucose (Misc Panel) 190H 07/09/20 12:32: Bedside Glucose (Misc Panel) 158H 07/09/20 13:02: Methicillin-Resist S.aureus DNA PCR NOT DETECTED 07/09/20 14:54: Vancomycin Level Trough 11.0 07/09/20 17:33: Bedside Glucose (Misc Panel) 159H CBC/BMP Laboratory Tests 07/09/20 05:10 FSBS Laboratory Tests Test 07/08/20 18:57 07/09/20 00:12 07/09/20 06:28 07/09/20 12:32 Range/Units Bedside Glucose (Misc Panel) 174 154 190 158 70-105 MG/DL Test 07/09/20 17:33 Range/Units Bedside Glucose (Misc Panel) 159 70-105 MG/DL Microbiology Microbiology 07/03/20 Respiratory Virus Panel (PCR) (VIRY) - Final, Complete 07/03/20 Urine Culture - Final, Complete 07/03/20 Blood Culture - Final, Complete NO GROWTH AFTER 5 DAYS 07/03/20 Blood Culture - Final, Complete NO GROWTH AFTER 5 DAYS Discharge Medications Scheduled Gabapentin (Gabapentin) 100 Mg Capsule, 100 MG PO TID, (Reported) Methocarbamol (Methocarbamol) 500 Mg Tablet, 500 MG PO TID, (Reported) Scheduled PRN Ibuprofen (Ibuprofen) 400 Mg Tablet, 400 MG PO TID PRN for PAIN, (Reported) Allergies Coded Allergies: shellfish derived (Verified Allergy, Intermediate, hives, 09/11/19) [place] (Verified Allergy, Mild, RASH, 02/07/20) SEAFOOD (Verified Allergy, Mild, RASH, 02/07/20) Cesilia Amezcua MD July 09, 2020 18:51
[2020-07-09] MEDS ORDERED: VANCOMYCIN HCL 500 MG in D5W MINI-BAG PLUS 100 ML IV ONE (19:00)
== END 2020-07-09 18:37 | disposition left against medical advice (07) | DRG 388 ==
LOC: EDBD 08:15 → M ED 08:15 → M ED INP 10:43 → M MS5PR 15:25 → M PCU 07-08 17:56
PROVIDERS: ADMIT General Practice; ATTEND Internal Medicine
DX: K56.50 Intestinal adhesions [bands], unspecified as to partial versus complete obstruction (principal); J96.01 Acute respiratory failure with hypoxia; J18.9 Pneumonia, unspecified organism; J69.0 Pneumonitis due to inhalation of food and vomit; K43.0 Incisional hernia with obstruction, without gangrene; Z68.43 Body mass index [BMI] 50.0-59.9, adult; E11.9 Type 2 diabetes mellitus without complications; E66.9 Obesity, unspecified; I12.9 Hypertensive chronic kidney disease with stage 1 through stage 4 chronic kidney disease, or unspecified chronic kidney disease; G47.33 Obstructive sleep apnea (adult) (pediatric); E03.9 Hypothyroidism, unspecified; F43.10 Post-traumatic stress disorder, unspecified; F31.9 Bipolar disorder, unspecified; F17.210 Nicotine dependence, cigarettes, uncomplicated; E83.42 Hypomagnesemia; E87.6 Hypokalemia; Z91.013 Allergy to seafood; Z91.018 Allergy to other foods; Z79.899 Other long term (current) drug therapy; D25.9 Leiomyoma of uterus, unspecified; Z53.29 Procedure and treatment not carried out because of patient's decision for other reasons

== ENCOUNTER → 2020-07-16 | Outpatient (CLI) | payer MEDICARE, MEDICAID ==
[~2020-07-16] MED LIST changes: +ARIP1TAB6 PO; +GABA-1171 PO; +GABA-283 PO; +IBUP-1114 PO; +METH-1164 PO; +TRAZ-252 PO
--- NOTE | 2020-07-16 17:27 | REPPI ---
INDICATION: J69.0 ASPIRATION PNEUMONIA OF BOTH LOWER LOBES DUE TO REGURG COMPARISON: 07/08/2020 as well as other prior exams. TECHNIQUE: PA/Lateral FINDINGS: Lungs: Clear, no infiltrate. Heart: Normal in size. Mediastinum: Mediastinal silhouette unremarkable. Pleural angles: Unremarkable.. Bones and soft tissues: Unremarkable. IMPRESSION: No acute pulmonary disease. <Electronically signed by Braydon Olson > 07/16/20 [id number]
== END ==
LOC: M PLAIMG 09:09
PROVIDERS: ATTEND Student in an Organized Health Care Education/Training Program
DX: J69.0 Pneumonitis due to inhalation of food and vomit (principal); E11.65 Type 2 diabetes mellitus with hyperglycemia; I10 Essential (primary) hypertension; E66.01 Morbid (severe) obesity due to excess calories; E03.9 Hypothyroidism, unspecified; N93.9 Abnormal uterine and vaginal bleeding, unspecified; M54.32 Sciatica, left side
CPT/HCPCS: 36415; 71046; 80053; 80061; 81025; 82043; 82607; 82746; 83036; 83735; 84439; 84443; 85025; G0463

== ENCOUNTER → 2020-07-16 | Outpatient (REF) | payer MEDICARE, MEDICAID ==
[2020-07-16 11:13] LABS: BASO # 0.1 10^3/uL (0.0-0.2); BASO % 0.7 % (0.0-1.0); EOS # 0.3 10^3/uL (0.0-0.5); EOS % 2.1 % (0.0-3.0); HEMATOCRIT 38.5 % (36.0-47.0); HEMOGLOBIN 12.4 g/dl (12.0-15.5); LYMPH # 1.8 10^3/uL (1.5-5.0); LYMPH % 14.9 % (24.0-44.0); MEAN CORPUSCULAR HEMOGLOBIN 28.1 pg (27.0-33.0); MEAN CORPUSCULAR HGB CONC 32.2 g/dl (32.0-36.5); MEAN CORPUSCULAR VOLUME 87.1 fl (80.0-96.0); MONO # 0.4 10^3/uL (0.0-0.8); MONO % 3.1 % (2.0-8.0); NEUTROPHILS # 9.4 10^3/uL (1.5-8.5); NEUTROPHILS % 77.5 % (36.0-66.0); PLATELET COUNT, AUTOMATED 433 10^3/uL (150-450); RED BLOOD COUNT 4.42 10^6/uL (4.00-5.40); WHITE BLOOD COUNT 12.1 10^3/uL (4.0-10.0)
[2020-07-16 11:35] LABS: HEMOGLOBIN A1c 12.2 %
[2020-07-16 11:43] LABS: ALBUMIN 3.3 GM/DL (3.2-5.2); ALT/SGPT 29 U/L (12-78); BILIRUBIN,TOTAL 0.3 MG/DL (0.2-1.0); BLOOD UREA NITROGEN 15 MG/DL (7-18); CALCIUM LEVEL 9.2 MG/DL (8.5-10.1); CARBON DIOXIDE LEVEL 26 MEQ/L (21-32); CHLORIDE LEVEL 100 MEQ/L (98-107); CHOLESTEROL LEVEL 124 MG/DL (<200); CREATININE FOR GFR 0.58 MG/DL (0.55-1.30); FOLATE 8.8 NG/ML; FREE T4 1.05 NG/DL (0.76-1.46); GLOMERULAR FILTRATION RATE > 60.0 (>58); GLUCOSE, FASTING 396 MG/DL (70-100); HDL CHOLESTEROL 31 MG/DL (>40); LDL CHOLESTEROL 37 MG/DL (<100); MAGNESIUM LEVEL 1.5 MG/DL (1.8-2.4); NON-HDL-C 93 MG/DL; POTASSIUM SERUM 4.1 MEQ/L (3.5-5.1); SODIUM LEVEL 135 MEQ/L (136-145); TOTAL PROTEIN 6.8 GM/DL (6.4-8.2); TRIGLYCERIDES LEVEL 282 MG/DL (<150); VITAMIN B12 LEVEL 728 PG/ML
[2020-07-16 11:46] LABS: CREATININE, URINE 28.8 MG/DL; MALB URINE SIEMENS 7.7 MG/L; MAU/CREAT RATIO 26.7 MCG/MG (0.0-30.0)
== END ==
LOC: M SFHCPLAZ 09:05
PROVIDERS: ATTEND Family Medicine
DX: E11.65 Type 2 diabetes mellitus with hyperglycemia (principal); I10 Essential (primary) hypertension; E66.01 Morbid (severe) obesity due to excess calories; E03.9 Hypothyroidism, unspecified; N93.9 Abnormal uterine and vaginal bleeding, unspecified; M54.32 Sciatica, left side

== ENCOUNTER → 2020-07-29 | Outpatient (REF) | payer MEDICARE, MEDICAID ==
[2020-08-10 11:08] LABS: CHLAMYDIA DNA AMPLIFICATION NEGATIVE (NEGATIVE)
[2020-08-10 11:09] LABS: GC DNA AMPLIFICATION NEGATIVE (NEGATIVE)
== END ==
LOC: M SFHCWAGY 15:05
PROVIDERS: ATTEND Obstetrics & Gynecology
DX: R10.2 Pelvic and perineal pain (principal)
CPT/HCPCS: 81025; 87661; G0463

== ENCOUNTER 2020-08-17 23:52 | Emergency (ER) | payer MEDICARE, MEDICAID ==
[~2020-08-17] VITALS: Ht 157.5 cm; Wt 87.4 kg
[~2020-08-17 23:52] MED LIST changes: -ARIP1TAB6 PO; -GABA-283 PO; -TRAZ-252 PO
[2020-08-17 23:53] VITALS: BP 142/88
[2020-08-18] MEDS ORDERED: TRAZ-252 PO (00:16)
[2020-08-18] MEDS ORDERED: GABA-283 PO (00:16)
[2020-08-18] MEDS ORDERED: ARIP1TAB6 PO (00:16)
== END 2020-08-18 00:50 | disposition left against medical advice (07) ==
LOC: M ED 23:52
DX: Z53.21 Procedure and treatment not carried out due to patient leaving prior to being seen by health care provider (principal)

== ENCOUNTER → 2020-08-20 | Outpatient (CLI) | payer MEDICARE, MEDICAID ==
[~2020-08-20] MED LIST changes: +ARIP1TAB6 PO; +GABA-283 PO; +TRAZ-252 PO
--- NOTE | 2020-08-20 10:00 | REP ---
INDICATION: R10.2 PELVIC PAIN. COMPARISON: 07/03/2020. TECHNIQUE: Transabdominal and transvaginal scanning performed. Study is limited due to patient body habitus. FINDINGS: Uterine dimensions are 16.1 x 9.0 x 10.0 cm. Endometrial echo is 15 mm in AP dimension and centrally placed. Multiple fibroids are noted in the myometrium. The largest measure 6.5 x 5.0 cm, 4.5 x 3.7 cm and 5.7 x 4.6 cm. The bladder measures 16.4 x 6.2 x 9.9cm. The ovaries could not be visualized. There is no adnexal mass identified. No free fluid is seen in the cul-de-sac. IMPRESSION: Enlarged fibroid uterus as seen on prior study. The ovaries could not be visualized. No adnexal mass or free fluid is seen. <Electronically signed by Braydon Olson > 08/20/20 0910
== END ==
LOC: M WHC 06:56
PROVIDERS: ATTEND Obstetrics & Gynecology
DX: R10.2 Pelvic and perineal pain (principal)
CPT/HCPCS: 76830; 76856; G0463

== ENCOUNTER → 2020-08-23 | Outpatient (REF) | payer MEDICARE, MEDICAID ==
[2020-08-23 18:41] LABS: APPEARANCE, URINE HAZY (CLEAR); BACTERIA, URINE AUTO 1+ (NEGATIVE); BILIRUBIN, URINE AUTO NEGATIVE (NEGATIVE); BLOOD, URINE BLOOD 1+ (NEGATIVE); COLOR, URINE YELLOW (YELLOW); GLUCOSE, URINE (UA) AUTO 3+ mg/dL (NEGATIVE); KETONE, URINE AUTO TRACE mg/dL (NEGATIVE); LEUKOCYTE ESTERASE, URINE AUTO NEGATIVE (NEGATIVE); NITRITE, URINE AUTO NEGATIVE (NEGATIVE); PROTEIN, URINE AUTO NEGATIVE (NEGATIVE); RBC, URINE AUTO 14 /HPF (0-3); SPECIFIC GRAVITY URINE AUTO 1.038 (1.002-1.035); SQUAMOUS EPITHELIAL CELL UR AU 4 /HPF (0-6); UROBILINOGEN, URINE AUTO 0.2 mg/dL (0.0-2.0); WBC, URINE AUTO 1 /HPF (0-3)
== END ==
LOC: M SFHCPLAZ 18:03
PROVIDERS: ATTEND Physician Assistant
DX: R30.0 Dysuria (principal)
CPT/HCPCS: 81001; 81002; 81025; 87086; G0463

== ENCOUNTER → 2020-08-26 | Outpatient (REF) | payer MEDICARE, MEDICAID | LOC: M SFHCPLAZ 15:57 | DX: E03.9 Hypothyroidism, unspecified (principal) ==

== ENCOUNTER → 2020-10-04 | Outpatient (CLI) | payer MEDICARE, MEDICAID | LOC: M WHC 10:21 | PROVIDERS: ATTEND Student in an Organized Health Care Education/Training Program | DX: Z12.31 Encounter for screening mammogram for malignant neoplasm of breast (principal) ==

== ENCOUNTER → 2020-10-12 | Outpatient (REF) | payer MEDICARE, MEDICAID ==
[~2020-10-12] MED LIST changes: -CLIN150C15 PO; +CLIN150C17 PO
== END ==
LOC: M SFHCPLAZ 11:20
PROVIDERS: ATTEND Family Medicine
DX: R10.9 Unspecified abdominal pain (principal)

== ENCOUNTER 2021-01-06 02:23 | Emergency (ER) | payer MEDICARE, MEDICAID ==
[~2021-01-06] VITALS: Ht 157.5 cm; Wt 90.8 kg
[~2021-01-06 02:23] MED LIST changes: -IBUP200T45 PO; +IBUP200T46 PO
--- OUTSIDE RECORDS SUMMARY | 2021-01-06 02:35 | CCD ---
Author Author [facility] Organization [facility] Address Unknown Phone Unavailable Care Team Providers Care Manager Energy Name Role Phone Waqas Latif Unavailable PROBLEMS Type Condition ICD9-CM Code [id number] Code Onset Dates Condition S tatus W/U Status Risk SNOMED Code Notes Problem Nondependent tobacco use disorder 305.1 Active confirmed 285539333 Problem Obstructive sleep apnea G47.33 Active confirmed 96938210 Problem Stress incontinence, Female 625.6 Active confirmed 94913654 Problem Other and unspecified hyperlipidemia 272.4 Act chavez confirmed 37540371 Problem Bipolar disorder, unspecified 296.80 Active confirm ed 80883082 Problem Vitamin d deficiency 268.9 Active confirmed 45627464 Problem Hernia of other specified si jocelyne of abdominal cavity without mention of obstruction or gangrene 553.8 Active confirmed 652115 09 Problem Depressive disorder F32.9 Active confirmed 49360143 Problem Major depressive disorder, recurrent episode F33.9 Active confirmed 447898593 Problem Left sided sciatica M54.32 Active confirmed 62789430 Problem Esophageal reflux 530.81 Active confirmed 24 8104110 Problem Anxiety disorder in conditions classified elsewhere 293.84 Active confirmed 880156196 Problem Hypothyroidism, unspecified type E03.9 Active conf irmed 78203712 Problem Hyperlipidemia, unspecified hyperlipidemia type E7 8.5 Active confirmed 00565995 Problem Oligomenorrhea N91.5 Active confirmed 15842 004 Problem Moderate episode of recurrent major depressive disorder F33.1 Active confirmed 757851200 Problem Amenorrhea N91.2 Active confirmed 55888259 Problem Pelvic pain in female R10.2 Active confirmed 982310004 Problem Obesity, morbid, BMI 50 or higher E66.01 Active confirmed 255909435 Problem NICA treated with BiPAP G47.33 Active confirmed 50404849 Problem Vaginal bleeding N93.9 Active confirmed 289 111297 Problem Essential hypertension I10 Active confirmed 19993379 Problem Chronic respiratory failure with hypoxia J96.11 Active confirmed 104095119 Problem Intractable migraine without aura and with status migr ainosus G43.011 Active confirmed 551892496 Problem Vitamin D deficiency E55.9 Active confirmed 65559203 Problem Hypertension, unspecified type I10 Active confir med 91621024 Problem Morbid obesity 278.01 Active confirmed 07974 6002 Problem Bipolar disorder, unspecified F31.9 Active confirm ed 67358055 Problem Type 2 diabetes mellitus wit h hyperglycemia, without long-term current use of insulin E11.65 Active confirmed 62890593 Problem Nicotine use disorder F17.200 Active confirmed 99860745 Problem History of lymphoma Z85.79 Active confirmed 919079719 Problem Sciatic leg pain M54.30 Active confirmed 230 26825 ALLERGIES No Known Allergies ENCOUNTERS from 1975 to 2020-10-12 Encounter Location Date Provider Diagnosis [address] [phone] [place] [address] Oct, Waqas Latif Sciatic leg pain M54.30 IMMUNIZATIONS Vaccine Route Administration Date Status zz*Influenza Preservative Free (Adult) IM Intramuscular Apr 04, 2010 Administered Pneumococcal Adult 0.5mL Pneumovax 23 SC Subcutaneous Apr 04 11 Administered SOCIAL HISTORY Tobacco Use: Social History Observation Description Date Details (start date - stop date) Current Smoker Sex Assigned At : Social History Observation Description Sex Assigned At Unknown Education: Question Answer Notes Level of Education: Finished College Bachelor in Science Language: Question Answer Notes Languages spoken: Grenadian Moravian: Question Answer Notes Moravian 33 None Sexual Hx: Question Answer Notes Had sex in the last 12 months (vaginal, oral, or anal)? Yes LMP: 07/2020 Have you ever had an STD? Yes Prevention Strategies discussed: Other with Men only GC? Yes Tobacco Use: Question Answer Notes Are you a: current smoker How many cigarettes a day do you smoke? 5 or less Are you interested in quitting? Ready to quit REASON FOR REFERRAL No Information VITAL SIGNS No information MEDICATIONS Medication SIG (Take, Route, Frequency, Duration) Notes Start Da te End Date Status Ibuprofen 400 MG 1 tablet Orally bid prn for 30 day(s) Dec, Not-Taking Percocet 5-325 MG 1 tablet as needed Orally every 6 hrs Sep, Not-Taking HYDROcodone-Acetaminophen 5-325 MG 1 tablet as needed Orally 4 hrs, prn for 14 days Not-Taking Diflucan 150 MG 1 tablet Orally take now; re peat in 72 hours if your symptoms persist for 4 days Aug, Not-Taking Drisdol 50,000 units as directed oral weekly for 1 month 2 Nov, Not-Taking Atorvastatin Calcium 40 MG 1 tablet Orally Once a day for 30 day (s) Aug, Not-Taking Astepro 0.15 % 1 drop in each nostril Nasally Twice a day for 3 0 day(s) Oct, Not-Taking Loradamed 10 mg 1 tablet Orally Once a day for 30 day(s) 1 Oct, Not-Taking Coricidin HBP Day/Night Cold 10-20 &15-200-2 MG as dir ected Orally every 4 hours as needed for 7 days Apr, Not-Taking metFORMIN HCl 500 mg 1 tablet with meals Orally qd for 30 day(s) Nov, Not-Taking metFORMIN HCl ER 500 MG 1 tablet with evening meal Orally bid for 3 0 day(s) Active Lisinopril 20 MG 1 tablet Orally Once a day for 30 day(s) Aug, Not-Taking Bactroban 2% apply to sacral area applied topically twice a d ay for 10 day(s) Nov, Not-Taking Norvasc 10mg oral PO daily for 30 days Oct, Active Cymbalta 60 MG 1 capsule Orally havent filled for 30 day(s) Nov, Not-Taking Mirena 20 MCG/24HR as directed Intrauterine Not-Taking Gabapentin 100 MG 1 capsule Orally TID for 8 days Active traZODone HCl 50 MG 1 tablet at bedtime as needed Orally Up to BID Not-Taking PROCEDURES No Information RESULTS No Results REASON FOR VISIT Gabapentin 100 MG Capsule MEDICAL (GENERAL) HISTORY Type Description Date Medical History Post traumatic Stress Disorder Medical History Major Depressive Disorder diagnosed 4 yr s ago Medical History morbid obesity Medical History GERD Medical History Swelling of limb Medical History Bipolar/depression Medical History Hiatal hernia Surgical History tonsillectomy Surgical History Surgical History bowel abstraction from hernia 08/25/2014 Surgical History Hernia/Intestine rapair 06/2016 Hospitalization History [facility] 02/11/03 Hospitalization History suicidal ideation at [facility] 02/2012 Goals Section No Information Health Concerns No Information MEDICAL EQUIPMENT No Information MENTAL STATUS No Information FUNCTIONAL STATUS No Information ASSESSMENTS Encounter Date Diagnosis Assessment Notes Treatment Notes Treatm ent Clinical Notes Oct, Sciatic leg pain (ICD-10 - M54.30) PLAN OF TREATMENT Medication Medication Name Sig Start Date Stop Date Norvasc 10mg oral PO daily for 30 days Oct, Gabapentin 100 MG 1 capsule Orally TID for 8 days metFORMIN HCl ER 500 MG 1 tablet with evening meal Orally bid fo r 30 day(s) Next Appt Details Provider Name:Subhash Castro, 2020-10- 08:40:00 AM, [address] [facility], , [place], [address], Insurance Providers Payer Name Payer Address Payer Phone Insured Name Patient Relati onship to Insured Coverage Start Date Coverage End Date MEDICAID [employer] [address] [facility] [address] ARNOLDO RAMIREZ MEDICARE Part A and B [address] [facility] [address] ARNOLDO RAMIREZ
--- OUTSIDE RECORDS SUMMARY | 2021-01-06 02:35 | CCD ---
Author Author [facility] Organization [facility] Address Unknown Phone Unavailable Care Team Providers Care Economics Instructor Name Role Phone Waqas Latif Unavailable PROBLEMS Type Condition ICD9-CM Code [id number] Code Onset Dates Condition S tatus W/U Status Risk SNOMED Code Notes Problem Nondependent tobacco use disorder 305.1 Active confirmed 037338736 Problem Obstructive sleep apnea G47.33 Active confirmed 30795318 Problem Stress incontinence, Female 625.6 Active confirmed 99616731 Problem Other and unspecified hyperlipidemia 272.4 Act chavez confirmed 62262246 Problem Bipolar disorder, unspecified 296.80 Active confirm ed 71936760 Problem Vitamin d deficiency 268.9 Active confirmed 42824685 Problem Hernia of other specified si jocelyne of abdominal cavity without mention of obstruction or gangrene 553.8 Active confirmed 749855 09 Problem Depressive disorder F32.9 Active confirmed 88847506 Problem Major depressive disorder, recurrent episode F33.9 Active confirmed 964776978 Problem Left sided sciatica M54.32 Active confirmed 52637959 Problem Esophageal reflux 530.81 Active confirmed 24 6796724 Problem Anxiety disorder in conditions classified elsewhere 293.84 Active confirmed 756758747 Problem Hypothyroidism, unspecified type E03.9 Active conf irmed 23298840 Problem Hyperlipidemia, unspecified hyperlipidemia type E7 8.5 Active confirmed 94765517 Problem Oligomenorrhea N91.5 Active confirmed 51669 004 Problem Moderate episode of recurrent major depressive disorder F33.1 Active confirmed 702427017 Problem Amenorrhea N91.2 Active confirmed 11920804 Problem Pelvic pain in female R10.2 Active confirmed 181117867 Problem Obesity, morbid, BMI 50 or higher E66.01 Active confirmed 067627253 Problem NICA treated with BiPAP G47.33 Active confirmed 08522184 Problem Vaginal bleeding N93.9 Active confirmed 289 527481 Problem Essential hypertension I10 Active confirmed 50085226 Problem Chronic respiratory failure with hypoxia J96.11 Active confirmed 835112392 Problem Intractable migraine without aura and with status migr ainosus G43.011 Active confirmed 524507993 Problem Vitamin D deficiency E55.9 Active confirmed 29042576 Problem Hypertension, unspecified type I10 Active confir med 49444282 Problem Morbid obesity 278.01 Active confirmed 82470 6002 Problem Bipolar disorder, unspecified F31.9 Active confirm ed 44941631 Problem Type 2 diabetes mellitus wit h hyperglycemia, without long-term current use of insulin E11.65 Active confirmed 85522121 Problem Nicotine use disorder F17.200 Active confirmed 53260453 Problem History of lymphoma Z85.79 Active confirmed 633133874 Problem Sciatic leg pain M54.30 Active confirmed 230 93693 ALLERGIES No Known Allergies ENCOUNTERS from 1973 to 2020-12-13 Encounter Location Date Provider Diagnosis [address] [phone] [place] [address] Dec, 2020 Waqas Latif Sciatic leg pain M54.30 IMMUNIZATIONS [...] Science Language: Question Answer Notes Languages spoken: Malagasy Voodoo: Question Answer Notes Voodoo 33 None Sexual Hx: Question Answer Notes [...] Notes Start Da te End Date Status Gabapentin 100 MG 1 capsule Orally TID for 8 days Active Coricidin HBP Day/Night Cold 10-20 &15-200-2 MG as dir ected Orally every 4 hours as needed for 7 days Apr, Not-Taking Bactroban 2% apply to sacral area applied topically twice a d ay for 10 day(s) Nov, Not-Taking Norvasc 10mg oral PO daily for 30 days Oct, Not-Taking Diflucan 150 MG 1 tablet Orally take now; re peat in 72 hours if your symptoms persist for 4 days Aug, Not-Taking metFORMIN HCl ER 500 MG 1 tablet with evening meal Orally bid for 3 0 day(s) Active Astepro 0.15 % 1 drop in each nostril Nasally Twice a day for 3 0 day(s) Oct, Not-Taking Percocet 5-325 MG 1 tablet as needed Orally every 6 hrs Sep, Not-Taking Mirena 20 MCG/24HR as directed Intrauterine Not-Taking Atorvastatin Calcium 40 MG 1 tablet Orally Once a day for 30 day (s) Aug, Not-Taking HYDROcodone-Acetaminophen 5-325 MG 1 tablet as needed Orally 4 hrs, prn for 14 days Not-Taking Ibuprofen 400 MG 1 tablet Orally bid prn for 30 day(s) Dec, Not-Taking Lisinopril 20 MG 1 tablet Orally Once a day for 30 day(s) Aug, Not-Taking Drisdol 50,000 units as directed oral weekly for 1 month 2 Nov, Not-Taking metFORMIN HCl 500 mg 1 tablet with meals Orally qd for 30 day(s) Nov, Not-Taking Loradamed 10 mg 1 tablet Orally Once a day for 30 day(s) 1 2 Oct, 2014 Not-Taking traZODone HCl 50 MG 1 tablet at bedtime as needed Orally Up to BID Not-Taking Cymbalta 60 MG 1 capsule Orally havent filled for 30 day(s) Nov, Not-Taking PROCEDURES No Information RESULTS No Results [...] Surgical History Hernia/Intestine rapair 06/2016 Hospitalization History [place] [facility] 02/11/03 Hospitalization History suicidal ideation at [facility] 02/2012 Goals Section No Information Health Concerns No Information MEDICAL EQUIPMENT No Information MENTAL STATUS No Information FUNCTIONAL STATUS No Information ASSESSMENTS Encounter Date Diagnosis Assessment Notes Treatment Notes Treatm ent Clinical Notes Dec, Sciatic leg pain (ICD-10 - M54.30) PLAN OF TREATMENT Medication Medication Name Sig Start Date Stop Date Gabapentin 100 MG 1 capsule Orally TID for 8 days Next Appt Details Provider Name:Charles Snell, 2021-01-04 01: 00:00 PM, [address] [facility], , [place], [address], Insurance Providers Payer Name Payer Address Payer Phone Insured Name Patient Relati onship to Insured Coverage Start Date Coverage End Date MEDICARE Part A and B [address] [facility] [phone] ARNOLDO RAMIREZ MEDICAID [facility] [address] [facility] [address] ARNOLDO RAMIREZ
--- OUTSIDE RECORDS SUMMARY | 2021-01-06 02:35 | CCD | Summary of Care ---
Author Author [facility] Address Unknown Phone Unavailable Care Team Providers Care Donor Floor Technician Name Role Phone Pcp, No PCP Unavailable Reason for Visit * Diagnostic Radiology (Routine) Referred By Contact Referred To Contact Status Reason Specialty Diagnoses / Procedures Sparkle Macias PA [address] [place] [address] Open Radiology Diagnoses Groin swelling Abdominal bloating P rocedures US Transvaginal US Pelvis Complete US Pelvis Complete Encounter Details Care Team Description Date Type Department Groin swelling; Abdominal bloating 11/02/2020 [facility] Ultrasound Encounter [address] [place] [address] Allergies Comments Active Allergy Reactions Severity Noted Date Seafood Rash Low 12/16/2017 Shellfish Allergy Rash Low 12/16/2017 documented as of this encounter (statuses as of 11/03/2020) Medications No known medicationsdocumented as of this encounter (statuses as of 11/03/2020) Active Problems Problem Noted Date Small bowel obstruction 12/17/2017 Hypomagnesemia 10/13/2017 Hypokalemia 10/13/2017 SBO (small bowel obstruction) 10/12/2017 Type 2 diabetes mellitus without complication, withou t long-term current 10/12/2017 use of insulin Hx of multiple abdominal hernia surgeries 10/12/2017 Incisional hernia, incarcerated 08/25/2014 Partial bowel obstruction 08/25/2014 documented as of this encounter (statuses as of 11/03/2020) Immunizations Name Administration Dates Next Due documented as of this encounter Social History Date Tobacco Use Types Packs/Day Years Used Current Every Day Smoker Cigarettes 1 Comments Alcohol Use Standard Drinks/Week Not Asked 0 (1 standard drink = 0.6 o z pure alcohol) Sex Assigned at Date Recorded Not on file Date Recorded COVID-19 Exposure Response 11/02/2020 1:16 PM EDT In the last month, have you been in contact with No / Unsure someone who was confirmed or suspected to have Coronavirus / COVID-19? documented as of this encounter Last Filed Vital Signs Not on filedocumented in this encounter Plan of Treatment Date/Time Name Type Priority Associated Diag noses 11/02/2020 2:34 PM EDT US Transvaginal Imaging Routine Groin swelling Abdominal bloating Health Maintenance Due Date Last Done Comments Lipid Disorder Screening 1975 MMR Vaccines (1 of 1 - 1974 Standard series) Varicella Vaccines (1 of 1974 2 - 2-dose childhood series) Pneumococcal Vaccine: 65+ 09/22/1979 Years (1 of 2 - PPSV23) Pneumococcal Vaccine: 09/22/1979 Pediatrics (0 to 5 Years) and At-Risk Patients (6 to 64 Years) (1 of 2 - PPSV23) DTaP,Tdap,and Td Vaccines 1980 (1 - Tdap) HIV Screening 1986 Diabetic Foot Exam 09/22/1991 Dilated Retinal Exam 09/22/1991 Urine Microalbumin 09/22/1991 Hepatitis B Vaccines (1 1992 of 3 - Risk 3-dose series) Cervical Cancer Screening 1994 5 years Hemoglobin A1c 07/25/2019 01/24/2019, 12/17/2017, 10/12/2017, Additional history exists Influenza Vaccine 12/03/2020 07/05/2020, 12/24/2019, 11/20/2018, Additional history exists COVID-19 Vaccine Completed 09/14/2020, 08/24/2020 HIB Vaccines Aged Out No longer eligible based on patient's age to complete this topic Hepatitis A Vaccines Aged Out No longer eligibl e based on patient's age to complete this topic IPV Vaccines Aged Out No longer eligible based on patient's age to complete this topic documented as of this encounter Implants Device Identifier Shelf Expiration Date Model / Serial / L ot Implanted Type Area Manufactur er 04/[id number] / / [id number] Tissue Strattice Firm [id number] - N/A: Abdomen LIFE CELL [id number] CORPORATIO Implanted: Qty: 1 on 08/25/2014 by Deuce Song MD at [facility] documented as of this encounter Procedures Comments Procedure Name Priority Date/Time Associated Diag nosis US TRANSVAGINAL 38464 Routine 11/02/2020 Groin sw elling 2:34 PM EDT Abdominal bloating Procedure Note - Interface, Received Via [employer] System - 11/02/2020 5:00 PM EDT ULTRASOUND PELVIS TRANSABDOM INAL TRANSVAGIN AL. COLOR DOPPLER PELVIS. INDICATIO N: Concern for ovarian cancer, groin swelling, abdominal bloating. TECHNIQUE : Multiple real-time transabdom inal and transvagin al sonographi c images of the pelvis were obtained. Then, color and spectral waveform Doppler was utilized to interrogat e the pelvic organs. COMPARISO N: CT abdomen and pelvis dated 12/17/1999 813 FINDINGS: Evaluation of the uterus is limited. The uterus is enlarged, heterogeno us and with multiple fibroids. It measures 16.3 x 8.4 x 10.5 cm (volume 756 mL). The endometria l stripe measures 1.4 cm. The largest fibroids in the uterus are intramural measured 4.3 x 4.0 x 5.6 cm and 4.4 x 3.7 x 4.5 cm. The bilateral ovaries were not visualized . No free fluid in the visualized pelvis. IMPRESSION : Limited exam. Heterogeno us, enlarged and myomatous uterus, similar to the prior CT. Nonvisuali zation of the bilateral ovaries. Further evaluation with CT of the abdomen and pelvis is recommende d if clinically indicated. documented in this encounter Results Not on filedocumented in this encounter Visit Diagnoses Diagnosis Groin swelling Abdominal or pelvic swelling, mass or l ump, unspecified site Abdominal bloating Flatulence, eructation, and gas pain documented in this encounter
--- OUTSIDE RECORDS SUMMARY | 2021-01-06 02:35 | CCD | Continuity of Care Document ---
Author Author [facility] Address [address] [place] [address] Phone Care Team Providers Care Hire Car Driver Name Role Phone PCP Unavailable Chief Complaint and Reason for Visit Reason for Visit RIGHT LEG PAIN Health Concerns Health Concerns may be documented in an alternate section. Allergies, Adverse Reactions, Alerts No allergy information available. Social History Assigned Sex Female Problems No problem information available. Medications No medication information available. Immunizations No Immunization Information Available Medical Equipment No Medical Equipment Information available Procedures No procedure information available. Relevant Diagnostic Tests and/or Laboratory Data No known relevant diagnostic tests and/or laboratory data. Vital Signs No vital signs result information available. Insurance Providers Guarantor ARNOLDO CLAROS Address [address] [address] Contact Info. Home Phone: Payer Policy Id Coverage Id Subscriber's Name Subscriber Id Effective Date Expiration Date MEDICARE - [place] [id number] ARNOLDO CLAROS 2008 [facility] MEDICARE DIVISION [id number] ARNOLDO CLAROS 2008 MEDICAID [id number] ARNOLDO CLAROS 2020 Encounters Encounter Location(s) Ar rival/Admit Date Discharge/Depart Date Provider(s) Departed Emergency [facility] January 04, 2021 4:52am January 04, 2021 5:40am CHASE MCCARTHY Functional Status No Functional Status information available Mental Status No Mental Status Information Available Assessments No Assessments Information Available Goals Goals may be documented in an alternate section.
--- OUTSIDE RECORDS SUMMARY | 2021-01-06 02:35 | CCD ---
Author Author [facility] Organization [facility] Address Unknown Phone Unavailable Care Team Providers Care Switchboard Operator Helper Name Role Phone Waqas Latif Unavailable PROBLEMS Type Condition ICD9-CM Code [id number] Code Onset Dates Condition S tatus W/U Status Risk SNOMED Code Notes Problem Nondependent tobacco use disorder 305.1 Active confirmed 382065235 Problem Obstructive sleep apnea G47.33 Active confirmed 01342938 Problem Stress incontinence, Female 625.6 Active confirmed 65032537 Problem Other and unspecified hyperlipidemia 272.4 Act chavez confirmed 93221514 Problem Bipolar disorder, unspecified 296.80 Active confirm ed 40297707 Problem Vitamin d deficiency 268.9 Active confirmed 71440131 Problem Hernia of other specified si jocelyne of abdominal cavity without mention of obstruction or gangrene 553.8 Active confirmed 543693 09 Problem Depressive disorder F32.9 Active confirmed 96435522 Problem Major depressive disorder, recurrent episode F33.9 Active confirmed 833818242 Problem Left sided sciatica M54.32 Active confirmed 00581538 Problem Esophageal reflux 530.81 Active confirmed 24 4811657 Problem Anxiety disorder in conditions classified elsewhere 293.84 Active confirmed 462702098 Problem Hypothyroidism, unspecified type E03.9 Active conf irmed 17702381 Problem Hyperlipidemia, unspecified hyperlipidemia type E7 8.5 Active confirmed 36437100 Problem Oligomenorrhea N91.5 Active confirmed 82375 004 Problem Moderate episode of recurrent major depressive disorder F33.1 Active confirmed 863139942 Problem Amenorrhea N91.2 Active confirmed 00376653 Problem Pelvic pain in female R10.2 Active confirmed 032107752 Problem Obesity, morbid, BMI 50 or higher E66.01 Active confirmed 519775007 Problem NICA treated with BiPAP G47.33 Active confirmed 35095303 Problem Vaginal bleeding N93.9 Active confirmed 289 871531 Problem Essential hypertension I10 Active confirmed 99666651 Problem Chronic respiratory failure with hypoxia J96.11 Active confirmed 197781174 Problem Intractable migraine without aura and with status migr ainosus G43.011 Active confirmed 613897187 Problem Vitamin D deficiency E55.9 Active confirmed 28038491 Problem Hypertension, unspecified type I10 Active confir med 68262681 Problem Morbid obesity 278.01 Active confirmed 81027 6002 Problem Bipolar disorder, unspecified F31.9 Active confirm ed 31061981 Problem Type 2 diabetes mellitus wit h hyperglycemia, without long-term current use of insulin E11.65 Active confirmed 68306898 Problem Nicotine use disorder F17.200 Active confirmed 96588111 Problem History of lymphoma Z85.79 Active confirmed 704541496 Problem Sciatic leg pain M54.30 Active confirmed 230 90775 ALLERGIES No Known Allergies ENCOUNTERS from 1973 to 2020-12-14 Encounter Location Date Provider Diagnosis [address] [phone] [place] [address] Dec, 2020 Waqas Latif Sciatic leg pain [...] Science Language: Question Answer Notes Languages spoken: Latvian Evangelical: Question Answer Notes Evangelical 33 None Sexual Hx: Question Answer Notes [...] Information RESULTS No Results REASON FOR VISIT refill MEDICAL (GENERAL) HISTORY Type Description Date Medical History Post traumatic Stress Disorder Medical History Major Depressive Disorder diagnosed 4 yr s ago Medical History morbid obesity Medical History GERD Medical History Swelling of limb Medical History Bipolar/depression Medical History Hiatal hernia Surgical History tonsillectomy Surgical History Surgical History bowel abstraction from hernia 08/25/2014 Surgical History Hernia/Intestine rapair 06/2016 Hospitalization History [facility] 02/11/03 Hospitalization History suicidal ideation at [facility] 02/2012 Goals Section No Information [...] Name:Charles Snell, 2021-01-04 01: 00:00 PM, [address] [facility], , [place], [address], Insurance Providers Payer Name Payer Address Payer Phone Insured Name Patient Relati onship to Insured Coverage Start Date Coverage End Date MEDICAID [employer] [address] [facility] [id number] ARNOLDO RAMIREZ MEDICARE Part A and B [address] [facility] [id number] ARNOLDO RAMIREZ
--- OUTSIDE RECORDS SUMMARY | 2021-01-06 02:35 | CCD | Continuity of Care Document ---
Author Author Carla HERNANDEZ Organization Unknown Address [address] [place] [address] Phone [phone] Care Team Providers Care Curator [employer] Name Role Phone Isatu Monique MD AUTM [phone] Problems Active Problems Provider Date Obesity Laurel Hernandez MD Onset: 05/30/2011 Ex-smoker Laurel Hernandez MD Onset: 05/30/2011 Social History Type Date Description Comments Sex Unknown Tobacco Use Start: Unknown currently smokes 1/2 Pack Daily Smoking Status Reviewed: 06/14/20 currently smokes 1/2 Pack Kellen ly ETOH Use Denies alcohol use Tobacco Use Start: Unknown Patient is a current smoker, smo kes every day Recreational Drug Use Denies Drug Use Exercise Type/Frequency Exercises regularly Allergies and adverse reactions Description No Known Drug Allergies Medications Active Medications SIG Qnty Indications Ordering Provide r Date Fluconazole 150mg Tablets 1 by mouth now and one tomorrow 2tabs B37.3 Laurel Hernandez MD 06/14/2020 Immunizations Description No Information Available Vital Signs Date Vital Result Comment 05/24/2020 10:31am BP Systolic 130 mmHg BP Diastolic 76 mmHg Height 62.75 inches 5'2.75" Weight 213.00 lb BMI (Body Mass Index) 38.0 kg/m2 BSA (Body Surface Area) 1.98 m2 01/22/2018 9:42am BP Systolic 144 mmHg BP Diastolic 90 mmHg Heart Rate 92 /min Height 63 inches 5'3" Weight 236.50 lb BMI (Body Mass Index) 41.9 kg/m2 BSA (Body Surface Area) 2.08 m2 7 Parity 1061 Last Menstrual Period [id number] Results Description No Information Available Procedures Date Code Description Status 12/01/2020 88237 Office/Outpatient Established Mo d MDM 30-39 Min Completed 06/14/2020 54885 Office/Outpatient Established Lo w MDM 20-29 Min Completed Medical Devices Description No Information Available Encounters Type Date Location Provider Dx Diagnosis Office Visit 12/01/2020 11:45a [facility] soliciting freight agent Laurel Hernandez MD D2 5.1 Intramural leiomyoma of uterus Z91.89 Oth personal risk factors, n ot elsewhere classified F17.210 Nicotine dependence, cigaret jocelyne, uncomplicated R10.2 Pelvic and perineal pain Office Visit 06/14/2020 2:00p [facility] soliciting freight agent Laurel Hernandez MD B3 7.3 Candidiasis of vulva and vagina Assessments Date Code Description Provider 12/01/2020 D25.1 Intramural leiomyoma of uterus H Laurel rodriguez MD 12/01/2020 Z91.89 Other specified pers onal risk factors, not elsewhere classified Laurel Hernandez MD 12/01/2020 F17.210 Nicotine dependence, cigarettes, uncomplicated Laurel Hernandez MD 12/01/2020 R10.2 Pelvic and perineal pain Laurel Hernandez MD 06/14/2020 B37.3 Candidiasis of vulva and vagina Laurel Hernandez MD Plan of Treatment Future Appointment(s):* 05/30/2021 9:30 am - Laurel Hernandez MD at [facility] soliciting freight agent 12/01/2020 - Laurel Hernandez MD* D25.1 Intramural leiomyoma of uterus* New Xrays: * MRI, Pelvis, W/ & W/O Contrast, Ordered: 12/01/20 * MRI, Abdomen, W/ & W/O Contrast, Ordered: 12/01/20 * Z91.89 Other specified personal risk factors, not elsewhere classified * F17.210 Nicotine dependence, cigarettes, uncomplicated * R10.2 Pelvic and perineal pain Functional Status Description No Information Available Mental Status Description No Information Available Referrals Description No Information Available
--- OUTSIDE RECORDS SUMMARY | 2021-01-06 02:35 | CCD ---
Author Author [facility] Organization [facility] Address Unknown Phone Unavailable Care Team Providers Care Customer Sales Service Manager Name Role Phone Subhash Castro Unavailable PROBLEMS Type Condition ICD9-CM Code [id number] Code Onset Dates Condition S tatus W/U Status Risk SNOMED Code Notes Problem Nondependent tobacco use disorder 305.1 Active confirmed 488879590 Problem Obstructive sleep apnea G47.33 Active confirmed 63236662 Problem Stress incontinence, Female 625.6 Active confirmed 57672388 Problem Other and unspecified hyperlipidemia 272.4 Act chavez confirmed 53216274 Problem Bipolar disorder, unspecified 296.80 Active confirm ed 92199925 Problem Vitamin d deficiency 268.9 Active confirmed 21005984 Problem Hernia of other specified si jocelyne of abdominal cavity without mention of obstruction or gangrene 553.8 Active confirmed 515697 09 Problem Depressive disorder F32.9 Active confirmed 87905794 Problem Major depressive disorder, recurrent episode F33.9 Active confirmed 031871302 Problem Left sided sciatica M54.32 Active confirmed 71262748 Problem Esophageal reflux 530.81 Active confirmed 24 2527907 Problem Anxiety disorder in conditions classified elsewhere 293.84 Active confirmed 438211124 Problem Hypothyroidism, unspecified type E03.9 Active conf irmed 55551817 Problem Hyperlipidemia, unspecified hyperlipidemia type E7 8.5 Active confirmed 16754687 Problem Oligomenorrhea N91.5 Active confirmed 47160 004 Problem Moderate episode of recurrent major depressive disorder F33.1 Active confirmed 207143174 Problem Amenorrhea N91.2 Active confirmed 58472230 Problem Pelvic pain in female R10.2 Active confirmed 017093583 Problem Obesity, morbid, BMI 50 or higher E66.01 Active confirmed 256875204 Problem NICA treated with BiPAP G47.33 Active confirmed 96595072 Problem Vaginal bleeding N93.9 Active confirmed 289 557527 Problem Essential hypertension I10 Active confirmed 06686208 Problem Chronic respiratory failure with hypoxia J96.11 Active confirmed 330091603 Problem Intractable migraine without aura and with status migr ainosus G43.011 Active confirmed 632421856 Problem Vitamin D deficiency E55.9 Active confirmed 80119906 Problem Hypertension, unspecified type I10 Active confir med 83063999 Problem Morbid obesity 278.01 Active confirmed 13231 6002 Problem Bipolar disorder, unspecified F31.9 Active confirm ed 33090554 Problem Type 2 diabetes mellitus wit h hyperglycemia, without long-term current use of insulin E11.65 Active confirmed 73875194 Problem Nicotine use disorder F17.200 Active confirmed 52219493 Problem History of lymphoma Z85.79 Active confirmed 289703243 Problem Sciatic leg pain M54.30 Active confirmed 230 93342 ALLERGIES No Known Allergies ENCOUNTERS from 1973 to 2020-10-28 Encounter Location Date Provider Diagnosis [facility] [address] [phone] [place] [address] Oct, Subhash Castro Leiomyoma of uterus D25.9 IMMUNIZATIONS Vaccine Route Administration Date Status zz*Influenza [...] Science Language: Question Answer Notes Languages spoken: Vietnamese Gnosticist: Question Answer Notes Gnosticist 33 None Sexual Hx: Question Answer Notes [...] REASON FOR REFERRAL No Information VITAL SIGNS Weight 190 lbs Oct, Height 62 in Oct, BMI 34.75 kg/m2 Oct, Blood pressure systolic 140 mm Hg Oct, Blood pressure diastolic 82 mm Hg Oct, MEDICATIONS Medication SIG (Take, Route, Frequency, Duration) Notes Start Da te End Date Status Cortanyadin HBP Day/Night Cold 10-20 &15-200-2 MG as dir ected Orally every 4 hours as needed for 7 days Apr, Not-Taking Cymbalta 60 MG 1 capsule Orally havent filled for 30 day(s) Nov, Not-Taking Bactroban 2% apply to sacral area applied topically twice a d ay for 10 day(s) Nov, Not-Taking Drisdol 50,000 units as directed oral weekly for 1 month 2 Nov, Not-Taking Diflucan 150 MG 1 tablet Orally take now; re peat in 72 hours if your symptoms persist for 4 days Aug, Not-Taking Percocet 5-325 MG 1 tablet as needed Orally every 6 hrs Sep, Not-Taking Astepro 0.15 % 1 drop in each nostril Nasally Twice a day for 3 0 day(s) Oct, Not-Taking Gabapentin 100 MG 1 capsule Orally TID for 8 days Active Mirena 20 MCG/24HR as directed Intrauterine Not-Taking HYDROcodone-Acetaminophen 5-325 MG 1 tablet as needed Orally 4 hrs, prn for 14 days Not-Taking Norvasc 10mg oral PO daily for 30 days Oct, Not-Taking metFORMIN HCl ER 500 MG 1 tablet with evening meal Orally bid for 3 0 day(s) Active metFORMIN HCl 500 mg 1 tablet with meals Orally qd for 30 day(s) Nov, Not-Taking traZODone HCl 50 MG 1 tablet at bedtime as needed Orally Up to BID Not-Taking Atorvastatin Calcium 40 MG 1 tablet Orally Once a day for 30 day (s) Aug, Not-Taking Loradamed 10 mg 1 tablet Orally Once a day for 30 day(s) 1 Oct, Not-Taking Ibuprofen 400 MG 1 tablet Orally bid prn for 30 day(s) Dec, Not-Taking Lisinopril 20 MG 1 tablet Orally Once a day for 30 day(s) Aug, Not-Taking PROCEDURES No Information RESULTS No Results REASON FOR VISIT F/U APPT? MEDICAL (GENERAL) HISTORY Type Description Date Medical [...] Fl 02/11/03 Hospitalization History suicidal ideation at [facility] 02/2012 Goals Section No Information Health Concerns No Information MEDICAL EQUIPMENT No Information MENTAL STATUS No Information FUNCTIONAL STATUS No Information ASSESSMENTS Encounter Date Diagnosis Assessment Notes Treatment Notes Treatm ent Clinical Notes Oct, Leiomyoma of uterus (ICD-10 - D25.9) Symptoms reported are mild and do not require surgical management, particularly in this high risk patient. States she has some pelvic discomfort off and on , but given her level of functioning, I wouldn't consider her symptoms severe. We discussed perioperative risks. My opinion is that she would benefit from a trial of either Lupron or Oriahnn prior to resorting to any plan of surgery. R/b/a/i and s/e of this medication reviewed. Patient was not receptive to my recommendation, and she was still insistent that she was (urine hcg was negative in office today). I'm concerned about her level of insight, particularly if treatment of her uterine fibroids is ultimately chosen. She will need extra attention, reassurance, and education. Patient states she is going to request a second opinion. PLAN OF TREATMENT Treatment Notes Assessment Notes Clinical Notes Leiomyoma of uterus Symptoms reported ar e mild and do not require surgical management, particularly in this high risk patient. States she has some pelvic discomfort off and on , but given her level of functioning, I wouldn't consider her symptoms severe. We discussed perioperative risks. My opinion is that she would benefit from a trial of either Lupron or Oriahnn prior to resorting to any plan of surgery. R/b/a/i and s/e of this medication reviewed. Patient was not receptive to my recommendation, and she was still insistent that she was (urine hcg was negative in office today). I'm concerned about her l evel of insight, particularly if treatment of her uterine fibroids is ultimately chosen. She will need extra attention, reassurance, and education. Patient states she is going to request a second opinion. Treatment Notes Test Name Order Date URINE TEST 2020-10-26 Next Appt Details TBD. Reason: Insurance Providers Payer Name Payer Address Payer Phone Insured Name Patient Relati onship to Insured Coverage Start Date Coverage End Date MEDICARE Part A and B [address] [facility] [id number] [phone] ARNOLDO RAMIREZ MEDICAID [employer] [address] [facility] [id number] ARNOLDO RAMIREZ
--- OUTSIDE RECORDS SUMMARY | 2021-01-06 02:35 | CCD | Continuity of Care Document ---
Author Author Carla HERNANDEZ Organization Unknown Address [address] [place] [address] Phone [phone] Care Team Providers Care Highway Maintenance Supervisor Name Role Phone Isatu Monique MD AUTM [phone] Problems Active Problems Provider Date Obesity Laurel [...] m2 7 Parity 1061 Last Menstrual Period [id number] Results Description No Information Available Procedures Date Code Description Status 06/14/2020 19829 Office/Outpatient Established Lo w MDM 20-29 Min Completed Medical Devices Description No Information Available Encounters Type Date Location Provider Dx Diagnosis Office Visit 06/14/2020 2:00p [facility] self pay collector Laurel Hernandez MD B3 7.3 Candidiasis of vulva and vagina Assessments Date Code Description Provider 12/01/2020 D25.1 Intramural leiomyoma of uterus H Laurel rodriguez MD 12/01/2020 Z91.89 Other specified pers onal risk factors, not elsewhere classified Laurel Hernandez MD 12/01/2020 F17.210 Nicotine dependence, cigarettes, uncomplicated Laurel Hernandez MD 06/14/2020 B37.3 Candidiasis of vulva and vagina Laurel Hernandez MD Plan of Treatment Future Appointment(s):* 05/30/2021 9:30 am - Laurel Hernandez MD at [facility] self pay collector 12/01/2020 - Laurel Hernandez MD* D25.1 Intramural leiomyoma of uterus* New Xrays: * MRI, Pelvis, W/ & W/O Contrast, Ordered: 12/01/20 * MRI, Abdomen, W/ & W/O Contrast, Ordered: 12/01/20 * Z91.89 Other specified personal risk factors, not elsewhere classified * F17.210 Nicotine dependence, cigarettes, uncomplicated Functional Status Description No Information Available Mental Status Description No Information Available Referrals Description No Information Available
--- OUTSIDE RECORDS SUMMARY | 2021-01-06 02:35 | CCD ---
Author Author [facility] Organization [facility] Address Unknown Phone Unavailable Care Team Providers Care Advanced Seal Delivery System Name Role Phone Waqas Latif Unavailable PROBLEMS Type Condition ICD9-CM Code [id number] Code Onset Dates Condition S tatus W/U Status Risk SNOMED Code Notes Problem Nondependent tobacco use disorder 305.1 Active confirmed 824806546 Problem Obstructive sleep apnea G47.33 Active confirmed 92426820 Problem Stress incontinence, Female 625.6 Active confirmed 29220543 Problem Other and unspecified hyperlipidemia 272.4 Act chavez confirmed 61010676 Problem Bipolar disorder, unspecified 296.80 Active confirm ed 93195949 Problem Vitamin d deficiency 268.9 Active confirmed 96400914 Problem Hernia of other specified si jocelyne of abdominal cavity without mention of obstruction or gangrene 553.8 Active confirmed 431542 09 Problem Depressive disorder F32.9 Active confirmed 13757250 Problem Major depressive disorder, recurrent episode F33.9 Active confirmed 607652407 Problem Left sided sciatica M54.32 Active confirmed 80911917 Problem Esophageal reflux 530.81 Active confirmed 24 7091587 Problem Anxiety disorder in conditions classified elsewhere 293.84 Active confirmed 726163429 Problem Hypothyroidism, unspecified type E03.9 Active conf irmed 68644076 Problem Hyperlipidemia, unspecified hyperlipidemia type E7 8.5 Active confirmed 32528012 Problem Oligomenorrhea N91.5 Active confirmed 55899 004 Problem Moderate episode of recurrent major depressive disorder F33.1 Active confirmed 068010924 Problem Amenorrhea N91.2 Active confirmed 60592924 Problem Pelvic pain in female R10.2 Active confirmed 979299774 Problem Obesity, morbid, BMI 50 or higher E66.01 Active confirmed 381275281 Problem NICA treated with BiPAP G47.33 Active confirmed 64173366 Problem Vaginal bleeding N93.9 Active confirmed 289 141526 Problem Essential hypertension I10 Active confirmed 73590186 Problem Chronic respiratory failure with hypoxia J96.11 Active confirmed 511857392 Problem Intractable migraine without aura and with status migr ainosus G43.011 Active confirmed 541422232 Problem Vitamin D deficiency E55.9 Active confirmed 56830597 Problem Hypertension, unspecified type I10 Active confir med 32227536 Problem Morbid obesity 278.01 Active confirmed 87379 6002 Problem Bipolar disorder, unspecified F31.9 Active confirm ed 12340215 Problem Type 2 diabetes mellitus wit h hyperglycemia, without long-term current use of insulin E11.65 Active confirmed 63684130 Problem Nicotine use disorder F17.200 Active confirmed 42796906 Problem History of lymphoma Z85.79 Active confirmed 583683121 Problem Sciatic leg pain M54.30 Active confirmed 230 16811 ALLERGIES No Known Allergies ENCOUNTERS from 1973 to 2020-10-13 Encounter Location Date Provider Diagnosis [facility] Resident [address] [facility] [address] [phone] [place] [address] 10 Oct, 2020 Waqas Latif Type 2 diabetes jayleen itus with hyperglycemia, without long-term current use of insulin E11.65 ; Sciatic leg pain M54.30 ; Abdominal discomfort R10.9 and Hypertension, unspecified type I10 IMMUNIZATIONS Vaccine Route Administration Date Status zz*Influenza [...] Science Language: Question Answer Notes Languages spoken: Cape Verdean Mormon: Question Answer Notes Mormon 33 None Sexual Hx: Question Answer Notes [...] FOR REFERRAL No Information VITAL SIGNS Weight 189.2 lbs 10 Oct, 2020 Weight-kg 85.82 kg Oct, Height 62 in Oct, BMI 34.60 kg/m2 Oct, Heart Rate 96 /min Oct, Respiratory Rate 18 /min Oct, Temperature 97.0 degrees Fahrenheit Oct, Oximetry 98 Oct, Blood pressure systolic 154 mm Hg Oct, Blood pressure diastolic 98 mm Hg Oct, MEDICATIONS Medication SIG (Take, [...] Information RESULTS No Results REASON FOR VISIT follow up MEDICAL (GENERAL) HISTORY Type Description Date Medical History Post traumatic Stress Disorder Medical History Major Depressive Disorder diagnosed 4 yr s ago Medical History morbid obesity Medical History GERD Medical History Swelling of limb Medical History Bipolar/depression Medical History Hiatal hernia Surgical History tonsillectomy Surgical History Surgical History bowel abstraction from hernia 08/25/2014 Surgical History Hernia/Intestine rapair 06/2016 Hospitalization History [place] [facility] 02/11/03 Hospitalization History suicidal ideation at [facility] 02/2012 Goals Section No Information Health Concerns No Information MEDICAL EQUIPMENT No Information MENTAL STATUS No Information FUNCTIONAL STATUS No Information ASSESSMENTS Encounter Date Diagnosis Assessment Notes Treatment Notes Treatm ent Clinical Notes Oct, Type 2 diabetes mellitus wit h hyperglycemia, without long-term current use of insulin (ICD-10 - E11.65) Oct, Sciatic leg pain (ICD-10 - M54.30) patient is overweight. working on lifestyle modifications. gabapentin is controlling her pain. c/w regimen Oct, Abdominal discomfort (ICD-10 - R10.9) patient feels like her belly is "stretched" and thinks she's and wants a pregancy test. She was sexually active about 2 weeks ago. Will get a beta hcg serum on her to r/o . genny has an appt with Dr. Sosa this upcoming month for follow up. Oct, Hypertension, unspecified type (ICD-10 - I10) bp 158/98. Pt has had concerns about several times now. Last time, when she suspected her urine was negative and a serum was ordered but patient never went to get the test done. And lisinopril was put on hold due to concerns. I will prescribed amlodipine for her bp control. PLAN OF TREATMENT Medication Medication Name Sig Start Date Stop Date Norvasc 10mg oral PO daily for 30 days Oct, Gabapentin 100 MG 1 capsule Orally TID for 8 days metFORMIN HCl ER 500 MG 1 tablet with evening meal Orally bid fo r 30 day(s) Treatment Notes Assessment Notes Clinical Notes Sciatic leg pain patient is overweigh t. working on lifestyle modifications. gabapentin is controlling her pain. c/w regimen Abdominal discomfort patient feels like her belly is "stretched" and thinks she's and wants a pregancy test. She was sexually active about 2 weeks ago. Will get a beta hcg serum on her to r/o . genny has an appt with Dr. Sosa this upcoming month for follow up. Hypertension, unspecified type bp 158/98 . Pt has had concerns about several times now. Last time, when she suspected her urine was negative and a serum was ordered but patient never went to get the test done. And lisinopril was put on hold due to concerns. I will prescribed amlodipine for her bp control. Treatment Notes Test Name Order Date HCG, SERUM QUANTITATIVE 2020-10-12 Next Appt Details 6 Months Reason:htn f.u Provider Name:Subhashjudy Castro, 08:40:00 AM, [address] [facility], , [place], [address], Follow Up:6 Monthshtn f.u Insurance Providers Payer Name Payer Address Payer Phone Insured Name Patient Relati onship to Insured Coverage Start Date Coverage End Date MEDICARE Part A and B [address] [facility] [id number] [phone] ARNOLDO CLAROS MEDICAID [employer] [address] [facility] [id number] ARNOLDO CLAROS
--- OUTSIDE RECORDS SUMMARY | 2021-01-06 02:35 | CCD ---
Author Author [facility] Organization [facility] Address Unknown Phone Unavailable Care Team Providers Care Traffic Sign Erection Supervisor Name Role Phone Subhash Castro Unavailable PROBLEMS Type Condition ICD9-CM Code [id number] Code Onset Dates Condition S tatus W/U Status Risk SNOMED Code Notes Problem Nondependent tobacco use disorder 305.1 Active confirmed 813525482 Problem Obstructive sleep apnea G47.33 Active confirmed 41425135 Problem Stress incontinence, Female 625.6 Active confirmed 63715921 Problem Other and unspecified hyperlipidemia 272.4 Act chavez confirmed 49772692 Problem Bipolar disorder, unspecified 296.80 Active confirm ed 52773115 Problem Vitamin d deficiency 268.9 Active confirmed 41148398 Problem Hernia of other specified si jocelyne of abdominal cavity without mention of obstruction or gangrene 553.8 Active confirmed 664130 09 Problem Depressive disorder F32.9 Active confirmed 18531709 Problem Major depressive disorder, recurrent episode F33.9 Active confirmed 007308044 Problem Left sided sciatica M54.32 Active confirmed 42951211 Problem Esophageal reflux 530.81 Active confirmed 24 3411815 Problem Anxiety disorder in conditions classified elsewhere 293.84 Active confirmed 935535536 Problem Hypothyroidism, unspecified type E03.9 Active conf irmed 46655163 Problem Hyperlipidemia, unspecified hyperlipidemia type E7 8.5 Active confirmed 41335649 Problem Oligomenorrhea N91.5 Active confirmed 33138 004 Problem Moderate episode of recurrent major depressive disorder F33.1 Active confirmed 664942282 Problem Amenorrhea N91.2 Active confirmed 58850853 Problem Pelvic pain in female R10.2 Active confirmed 752680886 Problem Obesity, morbid, BMI 50 or higher E66.01 Active confirmed 457093752 Problem NICA treated with BiPAP G47.33 Active confirmed 53983362 Problem Vaginal bleeding N93.9 Active confirmed 289 922617 Problem Essential hypertension I10 Active confirmed 48328058 Problem Chronic respiratory failure with hypoxia J96.11 Active confirmed 066379022 Problem Intractable migraine without aura and with status migr ainosus G43.011 Active confirmed 573859368 Problem Vitamin D deficiency E55.9 Active confirmed 74923433 Problem Hypertension, unspecified type I10 Active confir med 61848811 Problem Morbid obesity 278.01 Active confirmed 77186 6002 Problem Bipolar disorder, unspecified F31.9 Active confirm ed 97179655 Problem Type 2 diabetes mellitus wit h hyperglycemia, without long-term current use of insulin E11.65 Active confirmed 71165611 Problem Nicotine use disorder F17.200 Active confirmed 85817042 Problem History of lymphoma Z85.79 Active confirmed 922212288 Problem Sciatic leg pain M54.30 Active confirmed 230 10688 ALLERGIES No Known Allergies ENCOUNTERS from 1975 to 2020-10-27 Encounter Location Date Provider Diagnosis [facility] [address] [phone] [place] [phone] Oct, Subhash Castro IMMUNIZATIONS Vaccine Route Administration Date Status zz*Influenza [...] Science Language: Question Answer Notes Languages spoken: Kyrgyz Yazidism: Question Answer Notes Yazidism 33 None Sexual Hx: Question Answer Notes [...] Notes Start Da te End Date Status Coricidin HBP Day/Night Cold 10-20 &15-200-2 MG [...] Information RESULTS No Results REASON FOR VISIT second opinion MEDICAL (GENERAL) HISTORY Type Description Date Medical [...] Fl 02/11/03 Hospitalization History suicidal ideation at [facility] 02/2012 Goals Section No Information Health Concerns No Information MEDICAL EQUIPMENT No Information MENTAL STATUS No Information FUNCTIONAL STATUS No Information ASSESSMENTS No Information PLAN OF TREATMENT No Information Insurance Providers Payer Name Payer Address Payer Phone Insured Name Patient Relati onship to Insured Coverage Start Date Coverage End Date MEDICAID [employer] [address] [facility] [id number] ARNOLDO RAMIREZ MEDICARE Part A and B [address] [facility] [phone] ARNOLDO RAMIREZ
--- OUTSIDE RECORDS SUMMARY | 2021-01-06 02:35 | CCD ---
Author Author [facility] Organization [facility] Address Unknown Phone Unavailable Care Team Providers Care Corporate Counselor Name Role Phone Waqas Latif Unavailable PROBLEMS Type Condition ICD9-CM Code [id number] Code Onset Dates Condition S tatus W/U Status Risk SNOMED Code Notes Problem Nondependent tobacco use disorder 305.1 Active confirmed 064963456 Problem Obstructive sleep apnea G47.33 Active confirmed 14403662 Problem Stress incontinence, Female 625.6 Active confirmed 25999335 Problem Other and unspecified hyperlipidemia 272.4 Act chavez confirmed 22361790 Problem Bipolar disorder, unspecified 296.80 Active confirm ed 59618773 Problem Vitamin d deficiency 268.9 Active confirmed 21021041 Problem Hernia of other specified si jocelyne of abdominal cavity without mention of obstruction or gangrene 553.8 Active confirmed 680803 09 Problem Depressive disorder F32.9 Active confirmed 53681913 Problem Major depressive disorder, recurrent episode F33.9 Active confirmed 290022507 Problem Left sided sciatica M54.32 Active confirmed 02289692 Problem Esophageal reflux 530.81 Active confirmed 24 3625439 Problem Anxiety disorder in conditions classified elsewhere 293.84 Active confirmed 616409884 Problem Hypothyroidism, unspecified type E03.9 Active conf irmed 62673439 Problem Hyperlipidemia, unspecified hyperlipidemia type E7 8.5 Active confirmed 52937144 Problem Oligomenorrhea N91.5 Active confirmed 11804 004 Problem Moderate episode of recurrent major depressive disorder F33.1 Active confirmed 670516722 Problem Amenorrhea N91.2 Active confirmed 60520951 Problem Pelvic pain in female R10.2 Active confirmed 690209114 Problem Obesity, morbid, BMI 50 or higher E66.01 Active confirmed 588480068 Problem NICA treated with BiPAP G47.33 Active confirmed 09422282 Problem Vaginal bleeding N93.9 Active confirmed 289 885009 Problem Essential hypertension I10 Active confirmed 70406037 Problem Chronic respiratory failure with hypoxia J96.11 Active confirmed 509238443 Problem Intractable migraine without aura and with status migr ainosus G43.011 Active confirmed 683393927 Problem Vitamin D deficiency E55.9 Active confirmed 67636504 Problem Hypertension, unspecified type I10 Active confir med 49823969 Problem Morbid obesity 278.01 Active confirmed 77961 6002 Problem Bipolar disorder, unspecified F31.9 Active confirm ed 55346530 Problem Type 2 diabetes mellitus wit h hyperglycemia, without long-term current use of insulin E11.65 Active confirmed 22705375 Problem Nicotine use disorder F17.200 Active confirmed 69583344 Problem History of lymphoma Z85.79 Active confirmed 759580926 Problem Sciatic leg pain M54.30 Active confirmed 230 64711 ALLERGIES No Known Allergies ENCOUNTERS from 1975 to 2020-12-03 Encounter Location Date Provider Diagnosis [address] [phone] [place] [address] Dec, Waqas Latif IMMUNIZATIONS Vaccine Route Administration Date Status zz*Influenza [...] Science Language: Question Answer Notes Languages spoken: Guatemalan Islam: Question Answer Notes Islam 33 None Sexual Hx: Question Answer Notes [...] directed oral weekly for 1 month 2 4 Nov, 2012 Not-Taking Diflucan 150 MG 1 tablet Orally [...] Information RESULTS No Results REASON FOR VISIT sinus issues MEDICAL (GENERAL) HISTORY Type Description Date Medical History Post traumatic Stress Disorder Medical History Major Depressive Disorder diagnosed 4 yr s ago Medical History morbid obesity Medical History GERD Medical History Swelling of limb Medical History Bipolar/depression Medical History Hiatal hernia Surgical History tonsillectomy Surgical History Surgical History bowel abstraction from hernia 08/25/2014 Surgical History Hernia/Intestine rapair 06/2016 Hospitalization History [place] [facility] 02/11/03 Hospitalization History suicidal ideation at [facility] 02/2012 Goals Section No Information Health Concerns No Information MEDICAL EQUIPMENT No Information MENTAL STATUS No Information FUNCTIONAL STATUS No Information ASSESSMENTS No Information PLAN OF TREATMENT Next Appt Details Provider Name:Charles Snell, 2021-01-04 01: 00:00 PM, [address] [facility], , [place], [address], Insurance Providers Payer Name Payer Address Payer Phone Insured Name Patient Relati onship to Insured Coverage Start Date Coverage End Date MEDICAID [employer] [address] [facility] [phone] ARNOLDO RAMIREZ self MEDICARE Part A and B [address] [facility] [phone] ARNOLDO RAMIREZ self
--- OUTSIDE RECORDS SUMMARY | 2021-01-06 02:36 | CCD ---
Author Author [facility] Organization [facility] Address Unknown Phone Unavailable Care Team Providers Care Student Services Rep Name Role Phone NO, PCP Unavailable Unavailable SYSTEM IN, NOT IN PROVIDER Unavailable Unavailable Son CERNA MD Unavailable Unavailable Son CERNA MD Unavailable Unavailable Son CERNA MD Unavailable Unavailable Son CERNA MD Unavailable Unavailable Son CERNA MD Unavailable Unavailable Demar HERNANDEZ MD Unavailable Unavailable Demar HERNANDEZ MD Unavailable Unavailable Demar HERNANDEZ MD Unavailable Unavailable Demar HERNANDEZ MD Unavailable Unavailable Demar HERNANDEZ MD Unavailable Unavailable Demar HERNANDEZ MD Unavailable Unavailable Demar HERNANDEZ MD Unavailable Unavailable Demar HERNANDEZ MD Unavailable Unavailable Demar HERNANDEZ MD Unavailable Unavailable HERNANDEZ, L JOLANTA GAMINO Unavailable Unavailable HERNANDEZ, L JOLANTA GAMINO Unavailable Unavailable HERNANDEZ, L JOLANTA GAMINO Unavailable Unavailable HERNANDEZ, L JOLANTA GAMINO Unavailable Unavailable HERNANDEZ, L JOLANTA GAMINO Unavailable Unavailable HERNANDEZ, L JOLANTA GAMINO Unavailable Unavailable HERNANDEZ, L JOLANTA GAMINO Unavailable Unavailable HERNANDEZ, L JOLANTA GAMINO Unavailable Unavailable HERNANDEZ, L JOLANTA GAMINO Unavailable Unavailable HERNANDEZ, L JOLANTA GAMINO Unavailable Unavailable HERNANDEZ, L JOLANTA GAMINO Unavailable Unavailable HERNANDEZ, L JOLANTA GAMINO Unavailable Unavailable HERNANDEZ, L JOLANTA GAMINO Unavailable Unavailable HERNANDEZ, L JOLANTA GAMINO Unavailable Unavailable HERNANDEZ, L JOLANTA GAMINO Unavailable Unavailable HERNANDEZ, L JOLANTA GAMINO Unavailable Unavailable HERNANDEZ, L JOLANTA GAMINO Unavailable Unavailable HERNANDEZ, L JOLANTA GAMNIO Unavailable Unavailable HERNANDEZ, L JOLANTA GAMINO Unavailable Unavailable HERNANDEZ, L JOLANTA GAMINO Unavailable Unavailable HERNANDEZ, L JOLANTA GAMINO Unavailable Unavailable HERNANDEZ, L JOLANTA GAMINO Unavailable Unavailable HERNANDEZ, L JOLANTA GAMINO Unavailable Unavailable HERNANDEZ, L JOLANTA GAMINO Unavailable Unavailable HERNANDEZ, L JOLANTA GAMINO Unavailable Unavailable HERNANDEZ, L JOLANTA GAMINO Unavailable Unavailable HERNANDEZ, L JOLANTA GAMINO Unavailable Unavailable HERNANDEZ, L JOLANTA GAMINO Unavailable Unavailable HERNANDEZ, L JOLANTA GAMINO Unavailable Unavailable HERNANDEZ, L JOLANTA GAMINO Unavailable Unavailable HERNANDEZ, L JOLANTA GAMINO Unavailable Unavailable HERNANDEZ, L JOLANTA GAMINO Unavailable Unavailable HERNANDEZ, L JOLANTA GAMINO Unavailable Unavailable HERNANDEZ, L JOLANTA GAMINO Unavailable Unavailable HERNANDEZ, L JOLANTA GAMINO Unavailable Unavailable HERNANDEZ, L JOLANTA GAMINO Unavailable Unavailable SYMENOW, G CHRISTOPHER PA Unavailable Unavailable SYMENOW, G CHRISTOPHER PA Unavailable Unavailable SYMENOW, G CHRISTOPHER PA Unavailable Unavailable SYMENOW, G CHRISTOPHER PA Unavailable Unavailable SYMENOW, G CHRISTOPHER PA Unavailable Unavailable SYMENOW, G CHRISTOPHER PA Unavailable Unavailable SYMENOW, G CHRISTOPHER PA Unavailable Unavailable SYMENOW, G CHRISTOPHER PA Unavailable Unavailable SYMENOW, G CHRISTOPHER PA Unavailable Unavailable SYMENOW, G CHRISTOPHER PA Unavailable Unavailable SYMENOW, G CHRISTOPHER PA Unavailable Unavailable SYMENOW, G CHRISTOPHER PA Unavailable Unavailable SYMENOW, G CHRISTOPHER PA Unavailable Unavailable SYMENOW, G CHRISTOPHER PA Unavailable Unavailable SYMENOW, G CHRISTOPHER PA Unavailable Unavailable SYMENOW, G CHRISTOPHER PA Unavailable Unavailable OROZCO, A JUJU MD Unavailable Unavailable OROZCO, A JUJU MD Unavailable Unavailable OROZCO, A JUJU MD Unavailable Unavailable OROZCO, A JUJU MD Unavailable Unavailable OROZCO, A JUJU MD Unavailable Unavailable OROZCO, A JUJU MD Unavailable Unavailable OROZCO, A JUJU MD Unavailable Unavailable OROZCO, A JUJU MD Unavailable Unavailable OROZCO, A JUJU MD Unavailable Unavailable OROZCO, A JUJU MD Unavailable Unavailable OROZCO, A JUJU MD Unavailable Unavailable OROZCO, A JUJU MD Unavailable Unavailable OROZCO, A JUJU MD Unavailable Unavailable OROZCO, A JUJU MD Unavailable Unavailable OROZCO, A JUJU MD Unavailable Unavailable OROZCO, A JUJU MD Unavailable Unavailable OROZCO, A JUJU MD Unavailable Unavailable OROZCO, A JUJU MD Unavailable Unavailable OROZCO, A JUJU MD Unavailable Unavailable OROZCO, A JUJU MD Unavailable Unavailable OROZCO, A JUJU MD Unavailable Unavailable OROZCO, A JUJU MD Unavailable Unavailable OROZCO, A JUUJ MD Unavailable Unavailable OROZCO, A JUJU MD Unavailable Unavailable OROZCO, A JUJU MD Unavailable Unavailable OROZCO, A JUJU MD Unavailable Unavailable OROZCO, A JUJU MD Unavailable Unavailable OROZCO, A JUJU MD Unavailable Unavailable OROZCO, A JUJU MD Unavailable Unavailable OROZCO, A JUJU MD Unavailable Unavailable SHARMILA, Demar LOPEZ MD Unavailable Unavailable SHARMILA, Demar LOPEZ MD Unavailable Unavailable SHARMILA, L GEETHA MD Unavailable Unavailable SHARMILA, Demar LOPEZ MD Unavailable Unavailable SHARMILA, Demar LOPEZ MD Unavailable Unavailable SHARMILA, Demar LOPEZ MD Unavailable Unavailable SHARMILA, L GEETHA GAMINO Unavailable Unavailable SHARMILA, L GEETHA GAMINO Unavailable Unavailable SHARMILA, Demar LOPEZ MD Unavailable Unavailable SHARMILA, L GEETHA GAMINO Unavailable Unavailable SHARMILA, L GEETHA GAMINO Unavailable Unavailable SHARMILA, L GEETHA Unavailable Unavailable SHARMILA, L GEETHA Unavailable Unavailable SHARMILA, L GEETHA Unavailable Unavailable SHARMILA, L GEETHA MD Unavailable Unavailable SHARMILA, L GEETHA Unavailable Unavailable SHARMILA, L GEETHA MD Unavailable Unavailable SHARMILA, L GEETHA MD Unavailable Unavailable SHARMILA, L GEETHA MD Unavailable Unavailable SHARMILA, L GEETHA MD Unavailable Unavailable ELMO, SANJANA EMIR PA Unavailable Unavailable ELMO, SANJANA EMIR PA Unavailable Unavailable ELMO, SANJANA EMIR PA Unavailable Unavailable ELMO, SANJANA EMIR PA Unavailable Unavailable ELMO, SANJANA EMIR PA Unavailable Unavailable ELMO, SANJANA EMIR PA Unavailable Unavailable ELMO, SANJANA EMIR PA Unavailable Unavailable ELMO, SANJANA EMIR PA Unavailable Unavailable ELMO, SANJANA EMIR PA Unavailable Unavailable ELMO, SANJANA EMIR PA Unavailable Unavailable ELMO, SANJANA EMIR PA Unavailable Unavailable ELMO, SANJANA EMIR PA Unavailable Unavailable ELMO, SANJANA EMIR PA Unavailable Unavailable ELMO, SANJANA EMIR PA Unavailable Unavailable ELMO, SANJANA EMIR PA Unavailable Unavailable ELMO, SANJANA EMIR PA Unavailable Unavailable ELMO, SANJANA EMIR PA Unavailable Unavailable ELMO, SANJANA EMIR PA Unavailable Unavailable ELMO, SANJANA EMIR PA Unavailable Unavailable ELMO, SANJANA EMIR PA Unavailable Unavailable ELMO, SANJANA EMIR PA Unavailable Unavailable ELMO, SANJANA EMIR PA Unavailable Unavailable DEB, ASHIA PA Unavailable Unavailable DEB, ASHIA PA Unavailable Unavailable DEB, ASHIA PA Unavailable Unavailable DEB, ASHIA PA Unavailable Unavailable DEB, ASHIA PA Unavailable Unavailable DEB, ASHIA PA Unavailable Unavailable DEB, ASHIA PA Unavailable Unavailable DEB, ASHIA PA Unavailable Unavailable DEB, ASHIA PA Unavailable Unavailable DEB, ASHIA PA Unavailable Unavailable DEB, ASHIA PA Unavailable Unavailable DEB, ASHIA PA Unavailable Unavailable DEB, ASHIA PA Unavailable Unavailable DEB, ASHIA PA Unavailable Unavailable DEB, ASHIA PA Unavailable Unavailable LETTIERE, A KYLAH PA Unavailable Unavailable LETTIERE, A KYLAH PA Unavailable Unavailable LETTIERE, A KYLAH PA Unavailable Unavailable LETTIERE, A KYLAH PA Unavailable Unavailable LETTIERE, A KYLAH PA Unavailable Unavailable LETTIERE, A KYLAH PA Unavailable Unavailable LETTIERE, A KYLAH PA Unavailable Unavailable LETTIERE, A KYLAH PA Unavailable Unavailable LETTIERE, A KYLAH PA Unavailable Unavailable LETTIERE, A KYLAH PA Unavailable Unavailable LETTIERE, A KYLAH PA Unavailable Unavailable LETTIERE, A KYLAH PA Unavailable Unavailable LETTIERE, A KYLAH PA Unavailable Unavailable LETTIERE, A KYLAH PA Unavailable Unavailable LETTIERE, A KYLAH PA Unavailable Unavailable LETTIERE, A KYLAH PA Unavailable Unavailable LETTIERE, A KYLAH PA Unavailable Unavailable LETTIERE, A KYLAH PA Unavailable Unavailable LETTIERE, A KYLAH PA Unavailable Unavailable LETTIERE, A KYLAH PA Unavailable Unavailable LETTIERE, A KYLAH PA Unavailable Unavailable LETTIERE, A KYLAH PA Unavailable Unavailable LETTIERE, A KYLAH PA Unavailable Unavailable LETTIERE, A KYLAH PA Unavailable Unavailable LETTIERE, A KYLAH PA Unavailable Unavailable LETTIERE, A KYLAH PA Unavailable Unavailable LETTIERE, A KYLAH PA Unavailable Unavailable LETTIERE, A KYLAH PA Unavailable Unavailable LETTIERE, A KYLAH PA Unavailable Unavailable LETTIERE, A KYLAH PA Unavailable Unavailable LETTIERE, A KYLAH PA Unavailable Unavailable Ray, Matty PA-C Unavailable Ray, Matty PA-C Unavailable Ray, Matty PA-C Unavailable Cory, Matty PA-C Unavailable Cory, Matty PA-C Unavailable TURRIN, LEAH Unavailable Unavailable TURRIN, LEAH Unavailable Unavailable TURRIN, LEAH Unavailable Unavailable TURRIN, LEAH Unavailable Unavailable Hull, M Christopher PA-C Unavailable Unavailable Hull, M Christopher PA-C Unavailable Unavailable Hull, M Christopher PA-C Unavailable Unavailable Hull, M Christopher PA-C Unavailable Unavailable Hull, M Christopher PA-C Unavailable Unavailable Hull, M Christopher PA-C Unavailable Unavailable Hull, M Christopher PA-C Unavailable Unavailable Hull, M Christopher PA-C Unavailable Unavailable Hull, M Christopher PA-C Unavailable Unavailable Hull, M Christopher PA-C Unavailable Unavailable Hull, M Christopher PA-C Unavailable Unavailable Hull, M Christopher PA-C Unavailable Unavailable Hull, M Christopher PA-C Unavailable Unavailable Hull, M Christopher PA-C Unavailable Unavailable Hull, M Christopher PA-C Unavailable Unavailable Hull, M Christopher PA-C Unavailable Unavailable Hull, M Christopher PA-C Unavailable Unavailable Hull, M Christopher PA-C Unavailable Unavailable Hull, M Christopher PA-C Unavailable Unavailable Hull, M Christopher PA-C Unavailable Unavailable Hull, M Christopher PA-C Unavailable Unavailable Hull, M Christopher PA-C Unavailable Unavailable Hull, M Christopher PA-C Unavailable Unavailable Hull, M Christopher PA-C Unavailable Unavailable Hull, M Christopher PA-C Unavailable Unavailable Hull, M Christopher PA-C Unavailable Unavailable James JETER MD Unavailable Unavailable James JETER MD Unavailable Unavailable James JETER MD Unavailable Unavailable James JETER MD Unavailable Unavailable CHANLIJames BAUMAN MD Unavailable Unavailable CHANLIECCO, C GERRI MD Unavailable Unavailable CHANLIECCO, C GERRI MD Unavailable Unavailable CHANLIECCO, C GERRI MD Unavailable Unavailable CHANLIECCO, C GERRI MD Unavailable Unavailable CHANLIECCO, C GERRI MD Unavailable Unavailable MEHDILIECMICHELLE, C GERRI MD Unavailable Unavailable Re-disclosure Warning The records that you are about to access may contain information from federally-assisted alcohol or drug abuse programs. If such information is present, then the following federally mandated warning applies: This information has been disclosed to you from records protected by federal confidentiality rules (42 CFR part 2). The federal rules prohibit you from making any further disclosure of this information unless further disclosure is expressly permitted by the written consent of the person to whom it pertains or as otherwise permitted by 42 CFR part 2. A general authorization for the release of medical or other information is NOT sufficient for this purpose. The Federal rules restrict any use of the information to criminally investigate or prosecute any alcohol or drug abuse patient.The records that you are about to access may contain highly sensitive health information, the redisclosure of which is protected by Article 27-F of the [facility] Public Health law. If you continue you may have access to information: Regarding HIV / AIDS; Provided by facilities licensed or operated by the [facility] Office of Mental Health; or Provided by the [facility] Office for People With Developmental Disabilities. If such information is present, then the following [facility] mandated warning applies: This information has been disclosed to you from confidential records which are protected by state law. State law prohibits you from making any further disclosure of this information without the specific written consent of the person to whom it pertains, or as otherwise permitted by law. Any unauthorized further disclosure in violation of state law may result in a fine or fci sentence or both. A general authorization for the release of medical or other information is NOT sufficient authorization for further disc losure. Allergies and Adverse Reactions Type Description Substance Reaction Status Data Source(s ) No Known Drug Allergies No Known Drug Allergies [facility] Food allergy SHELLFISH SHELLFISH RASH [facility] Drug allergy kenn kenn [facility] Food allergy shellfish derived shellfish derived [facility] Family History Family Member Name Family Member Gender Family Member Status Date o f Status Description Data Source(s) Unknown Unknown Problem [facility] ([facility]) Unknown Unknown Problem MED[facility] ([facility]) Unknown Male Problem MEDENT ([facility]) Encounters Encounter Providers Location Date Indications Data Source(s ) Emergency Attender: Matty Ray PA-C 2020 08:52:00 AM EDT - 01/04/2021 09:40:00 AM EDT [facility] Patient discharged. Emergency Attender: GEETHA DOLL MDConsultant: PCP NO 12/20/2020 12:29:00 AM EDT - 12/20/2020 02:42:00 AM EDT [facility] Patient discharged. [place] [address] [facility] [address] 12/10/2020 12:00:00 AM EDT eCW1 ([facility]) [place] [address] [facility] [place] [address] 12/10/2020 12:00:00 AM EDT eCW1 ([facility]) [place] [address] [facility] [address] 12/03/2020 12:00:00 AM EDT eCW1 ([facility]) Outpatient Attender: JOLANTA [facility] 11:45:00 AM EDT [facility] ([facility]) Outpatient Referrer: PROVIDER SYSTEM IN 11/02/2020 1 2:00:00 AM EDT Other intra-abdominal and pelvic swelling, mass and lump [facility] Other intra-abdominal and pelvic swellin g, mass and lump [place] [address] [facility] [address] 10/27/2020 12:00:00 AM EDT eCW1 ([facility]) [place] [address] [facility] [address] 10/26/2020 12:00:00 AM EDT eCW1 ([facility]) Out[place] [address] [facility] [place] [address] 10/12/2020 12:00:00 AM EDT eCW1 ([facility]) [place] [address] [facility] [address] 10/11/2020 12:00:00 AM EDT eCW1 ([facility]) [place] [address] [facility] [address] 09/28/2020 12:00:00 AM EDT eCW1 ([facility]) [place] [address] [facility] [address] 09/14/2020 12:00:00 AM EDT eCW1 ([facility]) [place] [address] [facility] [address] 09/01/2020 12:00:00 AM EDT [facility]CW1 ([facility]) [place] [address] [facility] [address] 08/27/2020 12:00:00 AM EDT eCW1 [facility] [place] [address] [facility] [address] 08/26/2020 12:00:00 AM EDT eCW1 ([facility]) Emergency Attender: ASHIA TRUJILLO 08/23 11:17:00 PM EDT - 08/23/2020 11:40:00 PM T [facility] Patient discharged. [place] [address] [facility] [address] 08/23/2020 12:00:00 AM EDT eCW1 ([facility]) [place] [address] [facility] [address] 08/23/2020 12:00:00 AM EDT eCW1 ([facility]) [place] [address] [facility] [address] 08/23/2020 12:00:00 AM EDT eCW1 ([facility]) [place] [address] [facility] [address] 08/20/2020 12:00:00 AM EDT eCW1 ([facility]) Outpatient Attender: Radha Hull PA-C 08/18/2020 01:20:40 PM EDT - 08/18/2020 01:58:21 PM EDT [facility] ([facility]) [place] [address] [facility] [address] 08/18/2020 12:00:00 AM EDT eCW1 ([facility]) Office Visit, Est Pt., Level 4 PC [address] [place] [address] 08/10/2020 12:00:00 AM EDT eCW1 ([facility]) Unknown [address] [facility] [address] 08/10/2020 12:00:00 AM EDT eCW1 ([facility]) Emergency Attender: EMIR TRUJILLO 01:12:00 AM EDT - 08/04/2020 02:25:00 AM EDT [facility] Patient discharged. Outpatient Attender: KYLAH covarrubias 08/03/2020 09:35:00 AM EDT MED[facility] ([facility]) Unknown [address] [facility] [place] [address] 08/02/2020 12:00:00 AM EDT eCW1 ([facility]) Unknown [address] [facility] [place] [address] 07/30/2020 12:00:00 AM EDT eCW1 ([facility]) [place] [address] [facility] [address] 07/30/2020 12:00:00 AM EDT eCW1 ([facility]) Outpatient [address] [facility] [place] [address] 07/29/2020 12:00:00 AM EDT eCW1 ([facility]) Outpatient [address] [facility] [place] [address] 07/29/2020 12:00:00 AM EDT eCW1 ([facility]) [place] [address] [facility] [place] [address] 07/16/2020 12:00:00 AM EDT eCW1 ([facility]) Emergency Attender: GEETHA DOLL MDConsultant: PCP NO 06/26/2020 10:22:00 AM EDT - 06/26/2020 12:49:00 PM EDT [facility] Patient discharged. Emergency Attender: JUJU OROZCO MD 06/04 09:07:00 AM EDT - 06/26/2020 09:30:00 AM EDT LEG PAIN [facility] LEG PAIN Patient discharged. Emergency Attender: KYLAH CERNA MD 06/03 02:50:00 AM EDT - 06/21/2020 05:20:00 AM EDT LEG PAIN [facility] LEG PAIN Patient discharged. Emergency Attender: GERRI JETER MDConsultant: PCP NO 06/21/2020 01:56:00 AM EDT - 06/21/2020 02:00:00 AM EDT [facility] Patient discharged. Outpatient Attender: JOLANTA HERNANDEZ MD [facility] 02/2021 02:00:00 PM EDT [facility] ([facility]) Outpatient Attender: JOLANTA HERNANDEZ MD [employer] [facility] [employer] [facility] 10:45:00 AM EDT [facility] ([facility]) Emergency Attender: LEAH CAMPBELLConsultant: PCP NO 05/11/2020 12:46:00 AM EST - 05/11/2020 02:20:00 AM EST [facility] Patient discharged. Emergency Attender: RADHA TRUJILLO EMERGENCY ROOM- ER 03/21/2019 01:32:00 PM EST - 03/21/2019 05:58:00 PM [facility] Patient discharged. Immunizations Vaccine Date Status Description Data Source(s) COVID-19 VACC, MRNA(PFIZER)/PF 09/14/2020 12:00:00 AM EDT completed [facility] COVID-19 VACCINE Pfizer 09/14/2020 12:00:00 AM EDT completed [facility] Vaccine Series Complete: YESThis Data wa s Submitted to [facility] Via [email or web address]. COVID-19 VACC, MRNA(PFIZER)/PF 08/24/2020 12:00:00 AM EDT completed [facility] COVID-19 VACCINE Pfizer 08/24/2020 12:00:00 AM EDT completed [facility] Vaccine Series Complete: NOThis Data was Submitted to [facility] Via [email or web address]. Medications Medication Brand Name Start Date Product Form Dose Route Admi nistrative Instructions Pharmacy Instructions Status Indications Reaction Description Data Source(s) 20 mg 12/20/2020 12:00:00 AM EDT tablet 15 TAKE THREE TABLETS BY MOUTH EVERY DAY TAKE THREE TABLETS BY MOUTH EVERY DAY SOLD: 12/20/2020 [facility] Cyclobenzaprine hydrochloride 10 MG Oral Tablet CYCLOBENZAPR INE HCL 12/20/2020 12:00:00 AM EDT tablet 21 TAKE ONE TABLET BY MOUTH EVERY 8 HOURS NEEDED FOR PAIN NEEDED FOR MUSCLE SPASMS TAKE ONE TABLET BY MOUTH EVERY 8 HOURS A S NEEDED FOR PAIN NEEDED FOR MUSCLE SPASMS SOLD: 12/20/2020 [facility] 100 mg 12/15/2020 12:00:00 AM EDT capsule 24 TAKE ONE CAPSULE BY MOUTH THREE TIMES A DAY FOR 8 DAYS TAKE ONE CAPSULE BY MOUTH THREE TIMES A DAY FOR 8 DAYS SOLD: 12/16/2020 [facility] 100 mg 12/15/2020 12:00:00 AM EDT capsule 24 TAKE ONE CAPSULE BY MOUTH THREE TIMES A DAY FOR 8 DAYS TAKE ONE CAPSULE BY MOUTH THREE TIMES A DAY FOR 8 DAYS SOLD: 12/25/2020 [facility] 100 mg 12/15/2020 12:00:00 AM EDT capsule 24 TAKE ONE CAPSULE BY MOUTH THREE TIMES A DAY FOR 8 DAYS TAKE ONE CAPSULE BY MOUTH THREE TIMES A DAY FOR 8 DAYS SOLD: 12/31/2020 [facility] Amoxicillin 875 MG / Clavulanate 125 MG Oral Tablet 87 5-125 mg AMOXICILLIN/POTASSIUM CLAV 12/02/2020 12:00:00 AM EDT tablet 14 TAKE ONE TABLET BY MOUTH TWICE A DAY FOR 7 DAYS TAKE ONE TABLET BY MOUTH TWICE A DAY FOR 7 DAYS SOLD: 12/03/2020 [facility] 150 mg 11/04/2020 12:00:00 AM EDT tablet 2 TAKE 1 TABLET BY MOUTH TIMES 1 DAY THEN 1 TABLET IN 2-3 DAYS TAKE 1 TABLET BY MOUTH TIMES 1 DAY THEN 1 TABLET IN 2-3 DAYS SOLD: 11/04/2020 [facility] 100,000 unit/gram 11/04/2020 12:00:00 AM EDT cream 30 APPLY TO AFFECTED AREA TWO TIMES A DAY UNTIL HEALED APPLY TO AFFECTED AREA TWO TIMES A DAY U NTIL HEALED SOLD: 11/04/2020 [facility] Metronidazole 500 MG Oral Tablet METRONIDAZOLE 10/27/2020 12:0 0:00 AM EDT tablet 14 TAKE ONE TABLET BY MOUTH EVERY 1 2 HOURS TAKE ONE TABLET BY MOUTH EVERY 12 HOURS SOLD: 10/27/2020 [facility] Amlodipine 10 MG Oral Tablet [Norvasc] Norvasc 10mg Norvasc 10mg 10/12/2020 12:00:00 AM EDT suspended Norva sc 10mg eCW1 ([facility]) 100 mg 10/12/2020 12:00:00 AM EDT capsule 90 TAKE ONE CAPSULE BY MOUTH THREE TIMES A DAY TAKE ONE CAPSULE BY MOUTH THREE TIMES A DAY SOLD: 10/12/2020 [facility] Amlodipine 10 MG Oral Tablet [Norvasc] Norvasc 10mg Norvasc 10mg 10/12/2020 12:00:00 AM EDT active Norvasc 10mg eCW1 ([facility]) Amlodipine 10 MG Oral Tablet [Norvasc] Norvasc 10mg Norvasc 10mg 10/12/2020 12:00:00 AM EDT suspended Norva sc 10mg eCW1 ([facility]) Amlodipine 10 MG Oral Tablet [Norvasc] Norvasc 10mg Norvasc 10mg 10/12/2020 12:00:00 AM EDT suspended Norva sc 10mg eCW1 ([facility]) 500 mg 10/12/2020 12:00:00 AM EDT tablet extended release 24 hr 60 TAKE 1 TABLET BY MOUTH EVERY DAY WITH EVENING MEAL TWO TIMES A DAY TAKE 1 TABLET BY MOUTH EVERY DAY WITH EVENING MEAL TWO TIMES A DAY SOLD: 10/12/2020 [facility] Amlodipine 10 MG Oral Tablet [Norvasc] Norvasc 10mg Norvasc 10mg 10/12/2020 12:00:00 AM EDT suspended Norva sc 10mg eCW1 ([facility]) Amlodipine 10 MG Oral Tablet [Norvasc] Norvasc 10mg Norvasc 10mg 10/12/2020 12:00:00 AM EDT suspended Norva sc 10mg eCW1 ([facility]) Amlodipine 10 MG Oral Tablet [Norvasc] Norvasc 10mg Norvasc 10mg 10/12/2020 12:00:00 AM EDT active Norvasc 10mg eCW1 ([facility]) 100 mg 09/30/2020 12:00:00 AM EDT capsule 24 TAKE ONE CAPSULE BY MOUTH THREE TIMES A DAY FOR 8 DAYS TAKE ONE CAPSULE BY MOUTH THREE TIMES A DAY FOR 8 DAYS SOLD: 09/30/2020 [facility] 5 mg 09/01/2020 12:00:00 AM EDT tablet 30 TAKE ONE TABLET BY MOUTH EVERY DAY TAKE ONE TABLET BY MOUTH EVERY DAY SOLD: 09/02/2020 [facility] 50 mg 09/01/2020 12:00:00 AM EDT tablet 30 TAKE ONE TO TWO TABLETS BY MOUTH AT BEDTIME NEEDED FOR SLEEP TAKE ONE TO TWO TABLETS BY MOUTH AT BEDT MIGUEL ANGEL NEEDED FOR SLEEP SOLD: 09/02/2020 [facility] atorvastatin 40 MG Oral Tablet Atorvastatin Calcium 40 MG Atorvastatin Calcium 40 MG 08/26/2020 12:00:00 AM EDT 1.0 {tablet} activ e Atorvastatin Calcium 40 MG eCW1 ([facility]) Lisinopril 20 MG Oral Tablet Lisinopril 20 MG 08/26/2020 12:00:00 A M EDT 1.0 {tablet} suspended Lisinopril 20 MG eCW1 ([facility]) atorvastatin 40 MG Oral Tablet Atorvastatin Calcium 40 MG Atorvastatin Calcium 40 MG 08/26/2020 12:00:00 AM EDT 1.0 {tablet} suspe nded Atorvastatin Calcium 40 MG eCW1 ([facility]) atorvastatin 40 MG Oral Tablet Atorvastatin Calcium 40 MG Atorvastatin Calcium 40 MG 08/26/2020 12:00:00 AM EDT 1.0 {tablet} suspe nded Atorvastatin Calcium 40 MG eCW1 ([facility]) Lisinopril 20 MG Oral Tablet Lisinopril 20 MG 08/26/2020 12:00:00 A M EDT 1.0 {tablet} suspended Lisinopril 20 MG eCW1 ([facility]) atorvastatin 40 MG Oral Tablet Atorvastatin Calcium 40 MG Atorvastatin Calcium 40 MG 08/26/2020 12:00:00 AM EDT 1.0 {tablet} activ e Atorvastatin Calcium 40 MG eCW1 ([facility]) Lisinopril 20 MG Oral Tablet Lisinopril 20 MG 08/26/2020 12:00:00 A M EDT 1.0 {tablet} active Lisinopril 20 MG eCW1 ( [facility]) Lisinopril 20 MG Oral Tablet Lisinopril 20 MG 08/26/2020 12:00:00 A M EDT 1.0 {tablet} suspended Lisinopril 20 MG eCW1 ([facility]) atorvastatin 40 MG Oral Tablet Atorvastatin Calcium 40 MG Atorvastatin Calcium 40 MG 08/26/2020 12:00:00 AM EDT 1.0 {tablet} suspe nded Atorvastatin Calcium 40 MG eCW1 ([facility]) atorvastatin 40 MG Oral Tablet Atorvastatin Calcium 40 MG Atorvastatin Calcium 40 MG 08/26/2020 12:00:00 AM EDT 1.0 {tablet} activ e Atorvastatin Calcium 40 MG eCW1 ([facility]) atorvastatin 40 MG Oral Tablet Atorvastatin Calcium 40 MG Atorvastatin Calcium 40 MG 08/26/2020 12:00:00 AM EDT 1.0 {tablet} activ e Atorvastatin Calcium 40 MG eCW1 ([facility]) Lisinopril 20 MG Oral Tablet Lisinopril 20 MG 08/26/2020 12:00:00 A M EDT 1.0 {tablet} active Lisinopril 20 MG eCW1 ( [facility]) atorvastatin 40 MG Oral Tablet Atorvastatin Calcium 40 MG Atorvastatin Calcium 40 MG 08/26/2020 12:00:00 AM EDT 1.0 {tablet} suspe nded Atorvastatin Calcium 40 MG eCW1 ([facility]) atorvastatin 40 MG Oral Tablet Atorvastatin Calcium 40 MG Atorvastatin Calcium 40 MG 08/26/2020 12:00:00 AM EDT 1.0 {tablet} suspe nded Atorvastatin Calcium 40 MG eCW1 ([facility]) Lisinopril 20 MG Oral Tablet Lisinopril 20 MG 08/26/2020 12:00:00 A M EDT 1.0 {tablet} active Lisinopril 20 MG eCW1 ( [facility]) Lisinopril 20 MG Oral Tablet Lisinopril 20 MG 08/26/2020 12:00:00 A M EDT 1.0 {tablet} suspended Lisinopril 20 MG eCW1 ([facility]) atorvastatin 40 MG Oral Tablet Atorvastatin Calcium 40 MG Atorvastatin Calcium 40 MG 08/26/2020 12:00:00 AM EDT 1.0 {tablet} suspe nded Atorvastatin Calcium 40 MG eCW1 ([facility]) Lisinopril 20 MG Oral Tablet Lisinopril 20 MG 08/26/2020 12:00:00 A M EDT 1.0 {tablet} active Lisinopril 20 MG eCW1 ( [facility]) Lisinopril 20 MG Oral Tablet Lisinopril 20 MG 08/26/2020 12:00:00 A M EDT 1.0 {tablet} active Lisinopril 20 MG eCW1 ( [facility]) Lisinopril 20 MG Oral Tablet Lisinopril 20 MG 08/26/2020 12:00:00 A M EDT 1.0 {tablet} suspended Lisinopril 20 MG eCW1 ([facility]) atorvastatin 40 MG Oral Tablet Atorvastatin Calcium 40 MG Atorvastatin Calcium 40 MG 08/26/2020 12:00:00 AM EDT 1.0 {tablet} activ e Atorvastatin Calcium 40 MG eCW1 ([facility]) atorvastatin 40 MG Oral Tablet Atorvastatin Calcium 40 MG Atorvastatin Calcium 40 MG 08/26/2020 12:00:00 AM EDT 1.0 {tablet} suspe nded Atorvastatin Calcium 40 MG eCW1 ([facility]) Lisinopril 20 MG Oral Tablet Lisinopril 20 MG 08/26/2020 12:00:00 A M EDT 1.0 {tablet} active Lisinopril 20 MG eCW1 ( [facility]) atorvastatin 40 MG Oral Tablet Atorvastatin Calcium 40 MG Atorvastatin Calcium 40 MG 08/26/2020 12:00:00 AM EDT 1.0 {tablet} activ e Atorvastatin Calcium 40 MG eCW1 ([facility]) atorvastatin 40 MG Oral Tablet Atorvastatin Calcium 40 MG Atorvastatin Calcium 40 MG 08/26/2020 12:00:00 AM EDT 1.0 {tablet} activ e Atorvastatin Calcium 40 MG eCW1 ([facility]) Lisinopril 20 MG Oral Tablet Lisinopril 20 MG 08/26/2020 12:00:00 A M EDT 1.0 {tablet} suspended Lisinopril 20 MG eCW1 ([facility]) Lisinopril 20 MG Oral Tablet Lisinopril 20 MG 08/26/2020 12:00:00 A M EDT 1.0 {tablet} active Lisinopril 20 MG eCW1 ( [facility]) Lisinopril 20 MG Oral Tablet Lisinopril 20 MG 08/26/2020 12:00:00 A M EDT 1.0 {tablet} suspended Lisinopril 20 MG eCW1 ([facility]) 100 mg 08/24/2020 12:00:00 AM EDT capsule 60 TAKE ONE CAPSULE BY MOUTH THREE TIMES A DAY DIRECTED TAKE ONE CAPSULE BY MOUTH THREE TIMES A DAY DIRECTED SOLD: 08/24/2020 [facility] Fluconazole 150 MG Oral Tablet [Diflucan] Diflucan 150 MG Di flucan 150 MG 08/23/2020 12:00:00 AM EDT 1.0 {tablet} active Diflucan 150 MG eCW1 ([facility]) Fluconazole 150 MG Oral Tablet [Diflucan] Diflucan 150 MG Di flucan 150 MG 08/23/2020 12:00:00 AM EDT 1.0 {tablet} suspended Diflucan 150 MG eCW1 ([facility]) Fluconazole 150 MG Oral Tablet [Diflucan] Diflucan 150 MG Di flucan 150 MG 08/23/2020 12:00:00 AM EDT 1.0 {tablet} suspended Diflucan 150 MG eCW1 ([facility]) Fluconazole 150 MG Oral Tablet [Diflucan] Diflucan 150 MG Di flucan 150 MG 08/23/2020 12:00:00 AM EDT 1.0 {tablet} suspended Diflucan 150 MG eCW1 ([facility]) Fluconazole 150 MG Oral Tablet [Diflucan] Diflucan 150 MG Di flucan 150 MG 08/23/2020 12:00:00 AM EDT 1.0 {tablet} suspended Diflucan 150 MG eCW1 ([facility]) Fluconazole 150 MG Oral Tablet [Diflucan] Diflucan 150 MG Di flucan 150 MG 08/23/2020 12:00:00 AM EDT 1.0 {tablet} suspended Diflucan 150 MG eCW1 ([facility]) Fluconazole 150 MG Oral Tablet [Diflucan] Diflucan 150 MG Di flucan 150 MG 08/23/2020 12:00:00 AM EDT 1.0 {tablet} suspended Diflucan 150 MG eCW1 ([facility]) Fluconazole 150 MG Oral Tablet [Diflucan] Diflucan 150 MG Di flucan 150 MG 08/23/2020 12:00:00 AM EDT 1.0 {tablet} suspended Diflucan 150 MG eCW1 ([facility]) Fluconazole 150 MG Oral Tablet [Diflucan] Diflucan 150 MG Di flucan 150 MG 08/23/2020 12:00:00 AM EDT 1.0 {tablet} active Diflucan 150 MG eCW1 ([facility]) Fluconazole 150 MG Oral Tablet [Diflucan] Diflucan 150 MG Di flucan 150 MG 08/23/2020 12:00:00 AM EDT 1.0 {tablet} suspended Diflucan 150 MG eCW1 ([facility]) Fluconazole 150 MG Oral Tablet [Diflucan] Diflucan 150 MG Di flucan 150 MG 08/23/2020 12:00:00 AM EDT 1.0 {tablet} suspended Diflucan 150 MG eCW1 ([facility]) Fluconazole 150 MG Oral Tablet [Diflucan] Diflucan 150 MG Di flucan 150 MG 08/23/2020 12:00:00 AM EDT 1.0 {tablet} suspended Diflucan 150 MG eCW1 ([facility]) Fluconazole 150 MG Oral Tablet [Diflucan] Diflucan 150 MG Di flucan 150 MG 08/23/2020 12:00:00 AM EDT 1.0 {tablet} suspended Diflucan 150 MG eCW1 ([facility]) Fluconazole 150 MG Oral Tablet [Diflucan] Diflucan 150 MG Di flucan 150 MG 08/23/2020 12:00:00 AM EDT 1.0 {tablet} suspended Diflucan 150 MG eCW1 ([facility]) Fluconazole 150 MG Oral Tablet [Diflucan] Diflucan 150 MG Di flucan 150 MG 08/23/2020 12:00:00 AM EDT 1.0 {tablet} suspended Diflucan 150 MG eCW1 ([facility]) Fluconazole 150 MG Oral Tablet [Diflucan] Diflucan 150 MG Di flucan 150 MG 08/23/2020 12:00:00 AM EDT 1.0 {tablet} suspended Diflucan 150 MG eCW1 ([facility]) 150 mg 08/23/2020 12:00:00 AM EDT tablet 2 TAKE ONE TABLET BY MOUTH NOW REPEAT IN 72 HOURS IF YOUR SYMPTOMS PERSIST TAKE ONE TABLET BY MOUTH NOW REPEAT IN 72 HOURS IF YOUR SYMPTOMS PERSIST SOLD: 08/24/2020 [facility] Fluconazole 150 MG Oral Tablet [Diflucan] Diflucan 150 MG Di flucan 150 MG 08/23/2020 12:00:00 AM EDT 1.0 {tablet} active Diflucan 150 MG eCW1 ([facility]) 500 mg 08/20/2020 12:00:00 AM EDT tablet extended release 24 hr 60 TAKE ONE TABLET BY MOUTH TWICE A DAY WITH EVENING MEAL TAKE ONE TABLET BY MOUTH TWICE A DAY WITH EVENING MEAL SOLD: 09/11/2020 [facility] 100 mg 08/20/2020 12:00:00 AM EDT capsule 24 TAKE ONE CAPSULE BY MOUTH THREE TIMES A DAY FOR 8 DAYS TAKE ONE CAPSULE BY MOUTH THREE TIMES A DAY FOR 8 DAYS SOLD: 08/20/2020 [facility] 500 mg 08/20/2020 12:00:00 AM EDT tablet extended release 24 hr 60 TAKE ONE TABLET BY MOUTH TWICE A DAY WITH EVENING MEAL TAKE ONE TABLET BY MOUTH TWICE A DAY WITH EVENING MEAL SOLD: 08/24/2020 [facility] 24 HR Metformin hydrochloride 500 MG Ext ended Release Oral Tablet metFORMIN HCl ER 500 MG metFORMIN HCl ER 500 MG 08/10/2020 12:00:00 AM EDT 1.0 {tablet_with_evening_meal} active metFO RMIN HCl ER 500 MG eCW1 ([facility]) 24 HR Metformin hydrochloride 500 MG Ext ended Release Oral Tablet metFORMIN HCl ER 500 MG metFORMIN HCl ER 500 MG 08/10/2020 12:00:00 AM EDT 1.0 {tablet_with_evening_meal} active metFO RMIN HCl ER 500 MG eCW1 ([facility]) gabapentin 100 MG Oral Capsule Gabapentin 100 MG Gabapentin 100 MG 08/10/2020 12:00:00 AM EDT 1.0 {capsule} active G abapentin 100 MG eCW1 ([facility]) 100 mg 08/10/2020 12:00:00 AM EDT capsule 30 TAKE ONE CAPSULE BY MOUTH DAILY TAKE ONE CAPSULE BY MOUTH DAILY SOLD: 12/13/2020 [facility] 100 mg 08/10/2020 12:00:00 AM EDT capsule 30 TAKE ONE CAPSULE BY MOUTH DAILY TAKE ONE CAPSULE BY MOUTH DAILY SOLD: 08/10/2020 [facility] gabapentin 100 MG Oral Capsule Gabapentin 100 MG Gabapentin 100 MG 08/10/2020 12:00:00 AM EDT 1.0 {capsule} active G abapentin 100 MG eCW1 ([facility]) gabapentin 100 MG Oral Capsule Gabapentin 100 MG Gabapentin 100 MG 08/10/2020 12:00:00 AM EDT 1.0 {capsule} active G abapentin 100 MG eCW1 ([facility]) 24 HR Metformin hydrochloride 500 MG Ext ended Release Oral Tablet metFORMIN HCl ER 500 MG metFORMIN HCl ER 500 MG 08/10/2020 12:00:00 AM EDT 1.0 {tablet_with_evening_meal} active metFO RMIN HCl ER 500 MG eCW1 ([facility]) 50 mg 08/09/2020 12:00:00 AM EDT tablet 30 TAKE 1-2 TABLETS BY MOUTH AT BEDTIME NEEDED FOR SLEEP TAKE 1-2 TABLETS BY MOUTH AT BEDTIME NEEDED FOR SLEEP SOLD: 08/10/2020 [facility] 5 mg 08/09/2020 12:00:00 AM EDT tablet 30 TAKE ONE TABLET BY MOUTH EVERY DAY TAKE ONE TABLET BY MOUTH EVERY DAY SOLD: 08/10/2020 [facility] 5-325 mg 08/04/2020 12:00:00 AM EDT tablet 24 TAKE ONE TABLET BY MOUTH EVERY 4 HOURS NEEDED FOR PAIN MAXIMUM DAILY DOSE = 6 TAKE ONE TABLET BY MOUTH EVERY 4 HOURS NEEDED FOR PAIN MAXIMUM DAILY DOSE = 6 SOLD: 08/04/2020 [facility] No Active Medications 08/03/2020 12:00:00 AM EDT completed MEDENT ([facility]) 50 mg 07/20/2020 12:00:00 AM EDT tablet 30 TAKE 1-2 TABLETS BY MOUTH ONCE DAILY AT BEDTIME NEEDED FOR SLEEP TAKE 1-2 TABLETS BY MOUTH ONCE DAILY AT BEDTIME NEEDED FOR SLEEP SOLD: 07/22/2020 [facility] 100 mg 06/26/2020 12:00:00 AM EDT capsule 90 TAKE ONE CAPSULE BY MOUTH THREE TIMES A DAY TAKE ONE CAPSULE BY MOUTH THREE TIMES A DAY SOLD: 06/27/2020 [facility] Methylprednisolone Methylprednisolone (Medrol (Wang)) 4 mg tablets,dose pack Methylprednisolone (Medrol (Wang)) 4 mg tablets,dose pack 06/21/2020 04:23:10 AM EDT 0 active [facility] Methylprednisolone Methylprednisolone (Medrol (Wang)) 4 mg tablets,dose pack Methylprednisolone (Medrol (Wang)) 4 mg tablets,dose pack 06/21/2020 04:23:10 AM EDT 0 active [facility] 4 mg 06/21/2020 12:00:00 AM EDT tablets,dose pack 21 USE PER PACKAGE INSTRUCTIONS USE PER PACKAGE INSTRUCTIONS SOLD: 06/21/2020 [facility] 150 mg 06/14/2020 12:00:00 AM EDT tablet 2 TAKE ONE TABLET BY MOUTH NOW, AND ONE TABLET TOMORROW TAKE ONE TABLET BY MOUTH NOW, AND ONE TABLET TOMORROW SOLD: 07/22/2020 [facility] 150 mg 06/14/2020 12:00:00 AM EDT tablet 2 TAKE ONE TABLET BY MOUTH NOW, AND ONE TABLET TOMORROW TAKE ONE TABLET BY MOUTH NOW, AND ONE TABLET TOMORROW SOLD: 06/15/2020 [facility] Fluconazole 150 MG Oral Tablet Fluconazole 06/14/2020 12:00:00 AM EDT ORAL active MEDENT ([facility]) 8.6 mg 06/05/2020 12:00:00 AM EDT tablet 20 TAKE ONE TABLET BY MOUTH AT BEDTIME FOR CONSTIPATION TAKE ONE TABLET BY MOUTH AT BEDTIME FOR CONSTIPATION SOLD: 06/15/2020 [facility] 100 mg 06/05/2020 12:00:00 AM EDT capsule 30 TAKE ONE CAPSULE BY MOUTH THREE TIMES A DAY FOR CONSTIPATION TAKE ONE CAPSULE BY MOUTH THREE TIMES A DAY FOR CONSTIPATION SOLD: 06/15/2020 [facility] 17 gram/dose 06/05/2020 12:00:00 AM EDT powder 238 TAKE 17 GRAMS MIXED IN 8 OUNCES OF WATER OR JUICE DAILY NEEDED FOR CONSTIPATION TAKE 17 GRAMS MIXED IN 8 OUNCES OF WATER OR JUICE DAILY NEEDED FOR CONSTIPATION SOLD: 06/15/2020 [facility] No Active Medications 05/24/2020 12:00:00 AM EDT completed MEDENT ([facility]) 20 mg 05/11/2020 12:00:00 AM EST tablet 10 TAKE TWO TABLETS BY MOUTH EVERY DAY TAKE TWO TABLETS BY MOUTH EVERY DAY SOLD: 05/11/2020 [facility] 2 % 05/11/2020 12:00:00 AM EST cream 45 INSERT 1 APPLICATOR VAGINALLY AT BEDTIME INSERT 1 APPLICATOR VAGINALLY AT BEDTIME SOLD: 05/11/2020 [facility] 20 mg 05/11/2020 12:00:00 AM EST tablet 10 TAKE ONE TABLET BY MOUTH TWICE A DAY TAKE ONE TABLET BY MOUTH TWICE A DAY SOLD: 05/11/2020 [facility] 25 mg 05/11/2020 12:00:00 AM EST tablet 20 TAKE ONE TABLET BY MOUTH FOUR TIMES A DAY TAKE ONE TABLET BY MOUTH FOUR TIMES A DAY SOLD: 05/18/2020 [facility] 25 mg 05/11/2020 12:00:00 AM EST tablet 20 TAKE ONE TABLET BY MOUTH FOUR TIMES A DAY TAKE ONE TABLET BY MOUTH FOUR TIMES A DAY SOLD: 05/11/2020 [facility] 875-125 mg 04/07/2020 12:00:00 AM EST tablet 14 TAKE ONE TABLET BY MOUTH TWICE A DAY FOR 7 DAYS TAKE ONE TABLET BY MOUTH TWICE A DAY FOR 7 DAYS SOLD: 04/07/2020 [facility] 875-125 mg 02/19/2020 12:00:00 AM EST tablet 20 TAKE ONE TABLET BY MOUTH TWICE A DAY FOR 10 DAYS TAKE ONE TABLET BY MOUTH TWICE A DAY FOR 10 DAYS SOLD: 02/19/2020 [facility] 875 mg 12/17/2019 12:00:00 AM EDT tablet 14 TAKE ONE TABLET BY MOUTH EVERY 12 HOURS FOR 7 DAYS TAKE ONE TABLET BY MOUTH EVERY 12 HOURS FOR 7 DAYS [facility] Insurance Providers Payer name Policy type / Coverage type Policy ID Covered republican ID Covered republican's relationship to ackerman Policy Ackerman Plan Information [place] [id number] S [id number] MEDICARE [id number] [place] [id number] MEDICARE [id number] [place] [id number] A [place]IC[place] [id number] S [id number] MEDICARE [id number] xxxxxxxxxxx [id number] [facility] MEDICARE DIVISION [id number] S [id number] MEDICARE A [id number] Self [id number] [place]IC[place] [id number] S [id number] Medicare [place] Medicare Primary [id number] Self [id number] [facility] MEDICARE DIVISION [id number] S [id number] [place] [id number] S [id number] MEDICARE [id number] SP [id number] A [facility] MEDICARE DIVISION [id number] S [id number] MEDICARE A [id number] Self [id number] A [facility] MEDICARE DIVISION [id number] S [id number] MEDICARE M [id number] S [id number] A MEDICARE [id number] SP [id number] A Medicaid [place] Medigap Part B [id number] Self [id number] MEDICAID [id number] SP [id number] MEDICAID M [id number] Self [id number] MEDICAID [id number] xxxxxxxx [id number] MEDICAID [id number] [place] [id number] MEDICAID [id number] S [id number] Medicaid Medicaid [id number] Self [id number] [facility] Medigap Part B [id number] Self [id number] Medicare [place] Medicare Primary [id number] Self [id number] [facility] C [id number] S [id number] MEDICAID -PHYSICIAN [id number] Medicaid [facility] Part B [id number] Self [id number] Medicare [place] Medicare Primary [id number] Self [id number] Medicaid [facility] Part B [id number] Self [id number] Medicare [place] Medicare Primary [id number] Self [id number] [facility] [id number] Self [id number] Medicare [place] Medicare Primary [id number] Self [id number] [facility] PART B C [id number] S [id number] Medicaid [facility] Part B [id number] Self [id number] Medicare [place] Medicare Primary [id number] Self [id number] MEDICAID W UNAVAILABLE S UNAVAILA BLE [place]ICARE [place] [facility] [id number] S [id number] [place] [id number] SP [id number] C [id number] A MEDICARE [id number] SP [id number] G43 MEDICARE PART A -O/P [id number] 18 [id number] MEDICAID -O/P EMERGENCY ROOM [id number] MEDICARE [id number] SP [id number] A MEDICAID [id number] S [id number] MEDICAID [id number] S [id number] [place] [id number] SP [id number] MEDICARE C [id number] S [id number] [id number] MEDICAID M [id number] S [id number] MEDICAID [id number] SP [id number] MEDICARE PART A -O/P [id number] 18 [id number] Medicaid [facility] Part B [id number] Self [id number] Medicare Natl Gov't Servi Medicare Primary [id number] Self [id number] Medicaid [facility] Part B [id number] Self [id number] Medicare Natl Gov't Servi Medicare Primary [id number] Self [id number] Medicaid [facility] Part B [id number] Self [id number] MEDICARE C [id number] S [id number] A [facility] PART B C [id number] S [id number] MEDICAID -I [id number] MEDICARE PART A -I [id number] 18 [id number] MEDICAID -I/P [id number] 18 [id number] MEDICARE PART A -I/P [id number] 18 [id number] MEDICAID -O/P [facility] [id number] MEDICARE PART A -O [id number] Problems, Conditions, and Diagnoses Code Display Name Description Problem Type Effective Dates Data Source(s) Q10103 Nicotine dependence, unspecified, uncomp licated Nicotine dependence, unspecified, uncomplicated Diagnosis 12/20/2020 12:29:[address] [facility] E119 Type 2 diabetes mellitus without complic ations Type 2 diabetes mellitus without complications Diagnosis 12/20/2020 12:29:00 AM EDT [facility] I10 Essential (primary) hypertension Essential (primary) h ypertension Diagnosis 12/20/2020 12:29:00 AM [facility] G8929 Other chronic pain Other chronic pain Diagnosis 12:29:00 AM [facility] M5450 Low back pain, unspecified Low back pain, unspecified Diagnosis 12/20/2020 12:29:00 AM [facility] R14.0 Abdominal distension (gaseous) Abdominal distension (g aseous) Diagnosis 11/02/2020 01:21:39 PM [facility] R19.09 Other intra-abdominal and pelvic swellin g, mass and lump Other intra- abdominal and pelvic swelling, mass and lump Diagnosis 01:21:39 PM [facility] Z79.899 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 l F17.210 Nicotine dependence, cigarettes, uncompl icated NICOTINE DEPENDENCE, CIGARETTES, UNCOMPLICATED Diagnosis 08/23/2020 11:17:00 PM [facility]spital G57.92 Unspecified mononeuropathy of left lower limb UNSPECIFIED MONONEUROPATHY OF LEFT LOWER LIMB Diagnosis 08/23/2020 11:17:[address] [facility] l M79.605 Pain in left leg PAIN IN LEFT LEG Diagnosis 08/23/2020 11 :17:00 PM [facility] G95.29 Other cord compression OTHER CORD COMPRESSION Diagnosi s 08/04/2020 01:12:00 AM [facility] M54.16 Radiculopathy, lumbar region RADICULOPATHY, LUMBAR REG ION Diagnosis 08/04/2020 01:12:00 AM [facility] M79.662 Pain in left lower leg PAIN IN LEFT LOWER LEG Diagnosi s 08/04/2020 01:12:00 AM [facility] Y[address] or not applicable Unspecified place or not applicable Diagnosis 06/26/2020 10:22:00 AM [facility] [id number] Exposure to other specified factors, ini tial encounter Exposure to other specified factors, initial encounter Diagnosis 06/26/2020 10:22:00 AM [facility] [id number] Strain of muscle, fascia and tendon of the posterior muscle group at thigh level, left thigh, initial encounter Strain of muscle, fascia and tendon of the posterior muscle group at thigh level, left thigh, initial encounter Diagnosis 06/26/2020 10:22:00 AM [facility] N83998 Nicotine dependence, cigarettes, uncompl icated Nicotine dependence, cigarettes, uncomplicated Diagnosis 06/26/2020 10:22:00 AM [facility] B373 Candidiasis of vulva and vagina Candidiasis of vulva a nd vagina Diagnosis 06/26/2020 10:22:00 AM [facility] E1165 Type 2 diabetes mellitus with hyperglyce garcía Type 2 diabetes mellitus with hyperglycemia Diagnosis 06/26/2020 10:22:00 AM [facility] [id number] Strain of left quadriceps muscle, fascia and tendon, initial encounter Strain of left quadriceps muscle, fascia and tendon, initial encounter Diagnosis 06/26/2020 10:22:00 AM [facility] [id number] Pain in left lower leg Pain in left lower leg Diagnosi s 06/26/2020 10:22:00 AM [facility] Z5321 Procedure and treatment not carried out due to patient leaving prior to being seen by health care provider Procedure and treatment not carried out due to patient leaving prior to being seen by health care provider Diagnosis 06/21/2020 01:56:00 AM [facility] L2389 Allergic contact dermatitis due to other agents Allergic contact dermatitis due to other agents Diagnosis 05/11/2020 12:46:00 AM [facility] L299 Pruritus, unspecified Pruritus, unspecified Diagnosis 05/11/2020 12:46:00 AM [facility] I10 [id number] Hypertension, unspecified type Problem 10/12 12:00:00 AM EDT eCW1 ([facility]) M54.30 [id number] Sciatic leg pain Problem 08/10/2020 12:00:00 AM EDT eCW1 ([facility]) G43.011 [id number] Intractable migraine without aur a and with status migrainosus Problem 08/10/2020 12:00:00 AM EDT eCW1 ([facility]) R10.2 [id number] Pelvic pain in female Problem 07/29/2020 12: 00:00 AM EDT eCW1 ([facility]) N91.2 [id number] Amenorrhea Problem 07/29/2020 12:00:00 AM ED T eCW1 ([facility]) N91.5 [id number] Oligomenorrhea Problem 07/29/2020 12:00:00 A M EDT eCW1 ([facility]) Z85.79 [id number] History of lymphoma Problem 07/16/2020 12:00 :00 AM EDT eCW1 ([facility]) F17.200 [id number] Nicotine use disorder Problem 07/16/2020 12: 00:00 AM EDT eCW1 ([facility]) E11.65 [id number] Type 2 diabetes jayleen itus with hyperglycemia, without long-term current use of insulin Problem 07/16/2020 12:00:00 AM EDT [facility] J96.11 [id number] Chronic respiratory failure with hypoxia Problem 07/16/2020 12:00:00 AM EDT eCW1 ([facility]) I10 [id number] Essential hypertension Problem 07/16/2020 12 :00:00 AM EDT eCW1 ([facility]) N93.9 [id number] Vaginal bleeding Problem 07/16/2020 12:00:00 AM EDT eCW1 ([facility]) G47.33 [id number] NICA treated with BiPAP Problem 07/16/2020 12 :00:00 AM EDT eCW1 ([facility]) E66.01 [id number] Obesity, morbid, BMI 50 or higher Problem 07/16/2020 12:00:00 AM EDT eCW1 ([facility]) M54.32 Sciatica Left sided sciatica Problem 07/16/2020 12:00 :00 AM EDT eCW1 ([facility]) F32.9 [id number] Depressive disorder Problem 07/16/2020 12:00 :00 AM EDT eCW1 ([facility]) Surgeries/Procedures Procedure Description Date Indications Data Source(s) OFFICE OUTPATIENT VISIT 25 MINUTES 12/01/2020 12:00:00 AM EDT [facility] ([facility]) ULTRASOUND TRANSVAGINAL <td>US TRANSVAGINAL 33715</td><td>Routine</td><td>11/02/2020 2:34 PM EDT</td><td> Groin swelling Abdominal bloating</td><td></td> 11/02/2020 02:34:51 PM [facility] Groin swelling Medication: Toradol 60mg/2mL IM (Ketorolac) 08/10/2020 12:00:00 AM EDT eCW1 ([facility]) Therapeutic, Prophylactic Or Diagnostic Injection Subq/Im 08/03/2020 12:00:00 AM EDT [facility] ([facility]) URINE TEST 07/29/2020 12:00:00 AM EDT eCW1 ([facility]) OFFICE OUTPATIENT VISIT 15 MINUTES 06/14/2020 12:00:00 AM EDT [facility] ([facility]) Results ID Date Data Source [id number] 12/20/2020 12:29:00 AM EDT [facility] 1 OrderSheet [facility] Emergency Department [address] [place] [address] Phone #: ext- [phone] 12/20/2020 00:23 [id number] Sex: F : 1975 Age: 45yWEIGHT:86.1 kg (S) HEIGHT:62 inches (S) BMI:34.8ALLERGIES: No Known Drug AllergyCHIEF COMPLAINT: back painDIAGNOSIS: BackacheLAB ORDERSOrder Description Priority Entered Acknowledged InitialedDIAGNOSTIC STUDY ORDERSOrder Description Priority Entered Ac knowledged InitialedMEDICATION/IV/DRIP/FLUID ORDERSOrder Description Priority Entered Acknowledged InitialedFlexeril PO 10 mg 00:43 12/20/2020 00:49 Kiana,(NOW x1) Geetha Doll MD; Rosa RSaudpredniSONE PO 60 00:43 12/20/2020 00:49 Kiana,mg (NOW x1) Geetha Doll MD; Rosa R.NYaneliToradol IM 30 mg 00:43 12/20/2020 00:49 Kiana,(NOW x1) Geetha Doll MD; Rosa CopelandGENERAL ORDERSOrder Description Priority Entered Acknowledged Initialed[Electronically signed by Geetha Doll MD (01:48 12/20/2020)][Electronically signed by Princess Lynch R.N. (02:42 12/20/2020)][Electronically locked by Princess Lynch R.N. (02:42 12/20/2020)] Name Value Range Interpretation Code Description Data Tiff rce(s) Supporting Document(s) ID Date Data Source [id number] 12/20/2020 12:29:00 AM EDT [facility] 1 Medication Reconciliation Report [facility] Emergency Department [address] [place] [address] Phone #: ext- [phone] 12/20/2020 00:23 Patient: ARNOLDO RAMIREZ Sex: F : 1975 Age: 45yWeight: 86.1 kgHeight/Length: 62 in.BMI: 34.8ALLERGIES: No Known Drug AllergyThe patient's Home Medications are listed below:CONTINUE TAKING THE FOLLOWING MEDICATIONS: Gabapentin OralThe source(s) of the original Home Medication information:Not obtained.The following Medications were given to the patient in the Emergency Department:Flexeril [PO] PO 10 mg, administered: 00:49 12/20/2020rednisone [PO] PO 60 mg, administered: 00:49 12/20/2020Toradol [IM] IM 30 mg, administered: 00:49 12/20/2020The following Medications were prescribed to the patient:prednisone 20 mg tablet Take 3 tablet once a day for 5 days -- Dispense 15 tablet. Refills: 0.Substitution permitted.[facility] [address] [place], [place] [phone]. .cyclobenzaprine 10 mg tablet Take 1 tablet every eight hours as needed for pain for 7 days -- prn musclespasm. Dispense 21 tablet. Refills: 0. Substitution permitted.[facility] [address] [place], [place] [phone]. . -- Geetha Doll MD Name Value Range Interpretation Code Description Data Tiff rce(s) Supporting Document(s) ID Date Data Source [id number] 12/20/2020 12:29:00 AM EDT [facility] 1 Medication Administration Record [facility] Emergency Department [address] [place] [address] Phone #: ext- [phone] 12/20/2020 00:23 Patient: ARNOLDO RAMIREZ Sex: F : 1975 Age: 45yWeight: 86.1 kgHeight/Length: 62 inBMI: 34.8ALLERGIES: No Known Drug Allergy Date/Time Medication Administered Medication OrderedGiven FLEXERIL [PO] (CYCLOBENZAPRINE Flexeril PO 10 mg (NOW x1)00:49 12/20/2020 HCL)Rosa Bruno R.N. Dose: 10 mg Tablets POGiven PREDNISONE [PO] predniSONE PO 60 mg (NOW x1)00:49 12/20/2020 Dose: 60 mg Tablets POLoftusRosa R.NYaneliGiven TORADOL [IM] (KETOROLAC Toradol IM 30 mg (NOW x1)00:49 12/20/2020 TROMETHAMINE)Rosa Bruno R.N. Dose: 30 mg IM Name Value Range Interpretation Code Description Data Tiff rce(s) Supporting Document(s) ID Date Data Source [id number] 12/20/2020 12:29:00 AM EDT [facility] 1 General Instructions [facility] Emergency Department [address] [place] [address] Phone #: ext- [phone] 12/20/2020 00:23 Patient: ARNOLDO RAMIREZ Sex: F : 1975 Age: 45yChronic nontraumatic lumbar back pain.INSTRUCTIONSLimit lifting. No strenuous activity.(continue to take your gabapentin. take the flexeril and prednisone as prescribed. return if worse or anynew symptoms.).Warnings: GENERAL WARNINGS: Return or contact your physician immediately if your conditionworsens or changes unexpectedly, if not improving as expected, or if other problems arise.Your Current Medications: Your current home medications have been reviewed.No home medication.CONTINUE TAKING THE FOLLOWING MEDICATIONS:Gabapentin Oral.Prescription Medications:prednisone 20 mg tablet Take 3 tablet once a day for 5 days -- Dispense 15 tablet. Refills: 0.Substitution permitted.[facility] [place], [place] [phone]. FaxNumber: .cyclobenzaprine 10 mg tablet Take 1 tablet every eight hours as needed for pain for 7 days -- prn musclespasm. Dispense 21 tablet. Refills: 0. Substitution permitted.[facility] [address] [place], [place] [phone]. .Follow-up:Follow up with your doctor tomorrow even if well. Call for an appointment. Reason for referral: evaluation.Summary of care provided to patient via paper.Understanding of the discharge instructions verbalized by patient.Follow-up with: [facility], , , [address] [address], [place], [address] Follow up in three days even if well. Call for an appointment. Reason for referral: evaluation. Summary ofcare provided to patient via paper. 2 General Instructions [facility] Emergency Department [address] [place] [address] Phone #: ext- [phone] 12/20/2020 00:23 [facility]: [id number] Sex[facility] F : 1975 Age: 45y ADDITIONAL INFORMATIONBack Pain (Acute or Chronic)Back pain is one of the most common problems. The good news is that most people feel better in 1 to2 weeks, and most of the rest in 1 to 2 months. Most people can remain active.People who have pain describe it differently--not everyone is the same. The pain can be sharp, stabbing, shooting, aching, cramping or burning. Movement, standing, bending, lifting, sitting, or walking may worsen pain. It can be limited to one spot or area, or it can be more generalized. It can spread upwards, to the front, or go down your arms or legs (sciatica). 3 General [facility] Emergency Department [address] [place] [address] Phone #: [phone]- [phone] 12/20/2020 00:23 Patient: ARNOLDO RAMIREZ Sex: F : 1975 Age: 45y It can cause muscle spasm.Most of the time, mechanical problems with the muscles or spine cause the pain. Mechanicalproblems are usually caused by an injury to the muscles or ligaments. Illness can cause back pain,but it's usually not caused by a serious illness. Mechanical problems include: Physical activity such as sports, exercise, work, or normal activity Overexertion, lifting, pushing, pulling incorrectly or too aggressively Sudde n twisting, bending, or stretching from an accident, or accidental movement Poor posture Stretching or moving wrong, without noticing pain at the time Poor coordination, lack of regular exercise (check with your doctor about this) Spinal disc disease or arthritis StressPain can also be related to , or illness like appendicitis, bladder or kidney infections, pelvicinfections, and many other things.Acute back pain usually gets better in 1 to 2 weeks. Back pain related to disk disease, arthritis in thespinal joints, or narrowing of the spinal canal (spinal stenosis) can become chronic and last formonths or years.Unless you had a physical injury such as a car accident or fall, X-rays are usually not needed for thefirst assessment of back pain. If pain continues and does not respond to medical treatment, you mayneed X-rays and other tests.Home careTry this home care advice: When in bed, try to find a position of comfort. A firm mattress is best. Try lying flat on your back with pillows under your knees. You can also try lying on your side with your knees bent up toward your chest and a pillow between your knees. At first, don't try to stretch out the sore spots. If there is a strain, it's not like the good soreness you get after exercising without an injury. In this case, stretching may make it worse. Don't sit for long periods, as in a long car ride or during other travel. This puts more stress on the lower back than standing or walking. During the first 24 to 72 hours after an acute injury or flare up of chronic back pain, apply an 4 General Instructions [facility] Emergency Department [address] [place] [address] Phone #: ext- [phone] 12/20/2020 00:23 Patient: ARNOLDO RAMIREZ Sex: F : 1975 Age: 45y ice pack to the painful area for 20 minutes and then remove it for 20 minutes. Do this over a period of 60 to 90 minutes or several times a day. This will reduce swelling and pain. Wrap the ice pack in a thin towel or plastic to protect your skin. You can start with ice, then switch to heat. Heat (hot shower, hot bath, or heating pad) reduces pain and works well for muscle spasms. Heat can be applied to the painful area for 20 minutes then remove it for 20 minutes. Do this over a period of 60 to 90 minutes or several times a day. Don't sleep on a heating pad. It can lead to skin burgess or tissue damage. You can alternate ice and heat therapy. Talk with your doctor about the best treatment for your back pain. Therapeutic massage can help relax the back muscles without stretching them. Be aware of safe lifting methods and don't lift anything without stretching first.MedicinesTalk to your doctor before using medicine, especially if you have other medical problems or are takingother medicines. You may use cojc-tzk-vzywdbt medicine as directed on the bottle to control pain, unless another pain medicine was prescribed. If you have chronic conditions like diabetes, liver or kidney disease, stomach ulcers, or gastrointestinal bleeding, or are taking blood thinners, talk to your doctor before taking any medicine. Be careful if you are given a prescription medicines, narcotics, or medicine for muscle spasms. They can cause drowsiness, affect your coordination, reflexes, and judgement. Don't drive or operate heavy machinery.Follow-up careFollow up with your healthcare provider, or as advised.If X-rays were taken, you will be told of any new findings that may affect your careCall 911Call 911 if any of the following occur: Trouble breathing Confusion Very drowsy or trouble awakening Fainting or loss of consciousness 5 General Instructions [facility] Emergency Department [address] [place] [address] Phone #: ext- [phone] 12/20/2020 00:23 Patient: ARNOLDO RAMIREZ Sex: F : 1975 Age: 45y Rapid or very slow heart rate Loss of bowel or bladder controlWhen to seek medical adviceCall your healthcare provider right away if any of these occur: Pain becomes worse or spreads to your legs Weakness or numbness in one or both legs Numbness in the groin or genital area 1999- 2019 [employer]. [address] [place] [address]. All rights reserved. This information is not intended as asubstitute for professional medical care. Always follow your healthcare professional's instructions.SciaticaSciatica is a condition that causes pain in the lower back that spreads down into the buttock, hip, andleg. Sometimes the leg pain can happen without any back pain. Sciatica happens when a spinalnerve is irritated or has pressure put on it as it comes out of the spinal canal in the lower back. Thismost often happens when a bulge or rupture of a nearby spinal disk presses on the nerve. Sciaticacan also be caused by a narrowing of the spinal canal (spinal stenosis) or spasm of the muscle in thebuttocks that the sciatic nerve passes through (piriformis muscle). Sciatica may also be called lumbarradiculopathy. [address] [facility] Emergency Department [address] [place] [address] Phone #: ext- [phone] 12/20/2020 00:23 Patient: ARNOLDO RAMIREZ Sex: F : 1975 Age: 45ySciatica may start after a sudden twisting or bending force, such as in a car accident. Or it canhappen after a simple awkward movement. In either case, muscle spasm often also happens. Musclespasm makes the pain worse.A healthcare provider makes a diagnosis of sciatica from your symptoms and a physical exam.Unless you had an injury from a car accident or fall, you usually won't have X-rays taken at this time.This is because the nerves and disks in your back can't be seen on an X-ray. If the provider seessigns of a compressed nerve, you will need to schedule an MRI scan. Nerve conductions studies andelectromyography are nerve tests that can also help find the cause of nerve pain. Signs of acompressed nerve include loss of strength in a leg.Most sciatica gets better with medicine, exercise, and physical therapy. If your symptoms continueafter medical treatment, you may need surgery or injections to your lower back, depending on howsevere your symptoms are.Home careFollow these tips when caring for yourself at home: As soon as possible, start sitting up or walking. This will help you prevent problems that come from staying in bed for long periods. When in bed, try to find a position that is comfortable. A firm mattress is best. Try lying flat on your back with pillows under your k nees. You can also try lying on your side with your knees bent up toward your chest and a pillow between your knees. Don't sit for long periods. This puts more stress on your lower back than standing or walking. Use heat from a hot shower, hot bath, or heating pad to help ease pain. Massage can also help. You can also try using an ice pack. You can make your own ice pack by putting ice cubes in a plastic bag. Wrap the bag in a thin towel. Try both heat and cold to see which works best. Use the method that feels best for 20 minutes several times a day. You may use acetaminophen or ibuprofen to ease pain, unless another pain medicine was prescribed. Note: If you have chronic liver or kidney disease, talk with your healthcare provider before taking these medicines. Also talk with your provider if you've had a stomach ulcer or gastrointestinal bleeding. Use safe lifting methods. Don't lift anything heavier than 15 pounds until all of the pain is gone.Follow-up careFollow up with your healthcare provider, or as advised. You may need physical therapy or more tests. 7 General Instructions [facility] Emergency Department [address] [place] [address] Phone #: ext- [phone] 12/20/2020 00:23 Patient: ARNOLDO RAMIREZ Sex: F : 1975 Age: 45yIf X-rays were taken, a radiologist will look at them. You will be told of any new findings that mayaffect your care.When to seek medical adviceCall your healthcare provider right away if any of these occur: Pain gets worse even after taking prescribed medicine Weakness or numbness in 1 or both legs or hips Numbness in your groin or genital area You can't control your bowel or bladder Fever (100.4 F or 38 C) Redness or swelling over your back or spine [id number] [employer]. [address] [place] [address], [place] [address]. All rights reserved. This information is not intended as asubstitute for professional medical care. Always follow your healthcare professional's instructions. You have been given the following additional information: Back Pain (Acute or Chronic) Sciatica Limit lifting. No strenuous activity.(Electronically signed by Geetha Doll MD 12/20/2020 01:48) Name Value Range Interpretation Code Description Data Tiff rce(s) Supporting Document(s) ID Date Data Source [id number] 12/20/2020 12:29:00 AM EDT [facility] 1 Clinical Report - Nurses [facility] Emergency Department [address] [place] [address] Phone #: [phone]- [phone] 12/20/2020 00:23 Patient: ARNOLDO RAMIREZ Sex: F : 1975 Age: 45yTRIAGEArrived by EMS. ( pt c/o pain right leg chronic pain been going on for a few week pt. arrived via EMSwalked to the EMS stretcher).Acuity: LEVEL 4.Chief Complaint: RIGHT LOWER EXTREMITY PAIN.No injury occurred. Onset. (3 weeks).Treatment ENRICHMENT DIRECTOR:None. --00:37 12/20/20 Rosa Bruno R.N.00:31 12/20/20. BP: 154/80. MAP: 104. HR: 81. RR: 19. O2 saturation: 98% on room air. Temp: 97.2 F.Pain level now: 08/12. --00:37 12/20/20 Rosa Bruno R.N.Weight: 86.1 kg stated. Height/Length: 62 inches Per Patient. BMI: 34.8. --00:36 12/20/20 Rosa Bruno R.N.MedicationsNone. --00:33 12/20/20 Rosa Bruno R.N. Gabapentin Oral. --00:33 12/20/20 Rosa Bruno R.N.AllergiesNo Known Drug Allergy. --00:33 12/20/20 Rosa Bruno R.N.PROBLEMS:GI Disease.Diabetes Mellitus.Bowel Obstruction.Allergic Reaction.Abdominal Pain.Vaginitis.Hypertension.Hernia.Hyperglycemia. --00:33 12/20/20 Rosa Bruno R.N.The following entry was modified by Rosa Bruno R.N., 00:33 12/20/20Bipolar Disorder. --00:33 12/20/20 Rosa Bruno R.N..ADDITIONAL SURGERIES: 2 Clinical Report - Nurses [facility] Emergency Department [address] [place] [address] Phone #: ext- [phone] 12/20/2020 00:23 Patient: ARNOLDO RAMIREZ Sex: F : 1975 Age: 45y Abdominal Hernia Repair. Adenoidectomy. Bowel obstruction. . Hernia Repair. Tonsillectomy. --00:33 12/20/20 Rosa Bruno R.N. History SOCIAL HX: Current every day smoker. No alcohol use or drug use. She was offered HIV testing but declined and hepatitis C testing but declined. She has not traveled outside the [place] Infectious disease exposure: No infectious disease exposure. SELF HARM ASSESSMENT: Self harm assessment was performed. The patient answered "no" to the question(s) "Have you recently felt down, depressed, or hopeless?" and "Do you have thoughts of harming or killing yourself?". ABUSE ASSESSMENT: No report of abuse. NUTRITIONAL RISK ASSESSMENT: The nutritional risk assessment revealed no deficiencies. FUNCTIONAL ASSESSMENT: Functional assessment: no impairments noted. LEARNING NEEDS ASSESSMENT: The learning needs assessment r evealed no barriers. FALL RISK ASSESSMENT: Fall risk assessment completed. No risk factors identified. SKIN INTEGRITY ASSESSMENT: Skin integrity risk assessment completed. No skin integrity risk identified. --00:37 12/20/20 Rosa Bruno R.N.PHYSICAL ASSESSMENTTo room via stretcher.GENERAL / NEURO / PSYCH: Oriented X 4. Alert. Appears in no acute distress.EXTREMITIES: Extremity pulses are within normal limits. Extremities exhibit normal ROM.Neuro- vascular status intact to the extremity. No lower extremity edema. Right leg.SKIN: Skin is warm and dry. --00:37 12/20/20 Rosa Bruno R.N.NURSING PROGRESS NOTESThe plan of care for this patient has been created. Monitoring of patient in place. Reassurance given.Two patient identifiers checked. Call light placed in reach. Side rails up x 1. Bed placed in lowestposition. Brakes of bed on. Patient ready for evaluation- ED physician notified. --00:38 12/20/20 Rosa Bruno R.N. 00:49 12/20/2020 Flexeril (Cyclobenzaprine HCl) PO Tablets 10 mg given. Allergies verified and confirmed 5 rights. Information reviewed with patient including reason for taking this medication, signs of allergic 3 Clinical Report - Nurses [facility] Emergency Department [address] [place] [address] Phone #: ext- [phone] 12/20/2020 00:23 Patient: ARNOLDO RAMIREZ Sex: F : 1975 Age: 45y reaction, precautions and sedative warning. Verbalizes understanding. --00:49 12/20/20 Rosa Bruno R.N. 00:49 12/20/2020 Prednisone PO Tablets 60 mg given. Allergies verified and confirmed 5 rights. Information reviewed with patient including reason for taking this medication, signs of allergic reaction and precautions. Verbalizes understanding. --00:49 12/20/20 Rosa Bruno R.N. 00:49 12/20/2020 Toradol (Ketorolac Tromethamine) IM 30 mg given. Given in the right gluteus elly. Allergies verified and confirmed 5 rights. Information reviewed with patient including reason for taking this medication, signs of allergic reaction and precautions. Verbalizes understanding. --00:49 12/20/20 Rosa Bruno R.N. Reassessment after medication administered. Pain still present but improving. She reports no complaints and she is calm and resting quietly. Overall patient status is improved- she states feels better. GENERAL / NEURO / PSYCH: The patient reports pain (2). --01:56 12/20/20 Princess Lynch R.N.DISPOSITION / DISCHARGE Condition at departure: improved. No learning barriers present. Reviewed medication(s) dosing and course information. Prescription(s) sent electronically to pharmacy (Prednisone, flexaril). Reviewed referral to an orthopedic surgeon. Work note given. Patient verbalized understanding. Written instructions provided in [place] (Pt to use meds as prescribed and f/u with PCP and ortho. Medicaid cab in route.). The patient was discharged by the physician. She was discharged sumi e. She left via taxi (Medicaid). --01:58 12/20/20 Princess Lynch R.N. 01:56 12/20/20. BP: 149/80. MAP: 103. HR: 73. RR: 18. O2 saturation: 99%. Temp: 97.8 F (oral). Pain level now: 04/14. --01:58 12/20/20 Princess Lynch R.N. Departure time: 02:42 12/20/2020. --02:42 12/20/20 Princess Lynch R.N.Locked/Released at 12/20/2020 02:42 by Princess Lynch R.N. Name Value Range Interpretation Code Description Data Tiff rce(s) Supporting Document(s) ID Date Data Source [id number] 12/20/2020 12:29:00 AM EDT [facility] 1 Clinical Report - Physicians/Mid Levels [facility] Emergency Department [address] [place] [address] Phone #: ext- [phone] 12/20/2020 00:23 Patient: ARNOLDO RAMIREZ Sex: F : 1975 Age: 45y Arrived- By ambulance. Historian- patient and EMS personnel. Disposition decision: 01:41 12/20/2020.HISTORY OF PRESENT ILLNESS Chief Complaint: BACK PAIN. It is described as being moderate in degree and radiating to the right calf. The quality is noted to be aching. Onset- 1 weeks and it is still present. No bladder dysfunction, bowel dysfunction, sensory loss or motor loss. Additional history - pt c/o pain right leg chronic pain been going on for a few week pt. arrived via EMS walked to the EMS stretcher. Patient denies an injury. No injury to the head or neck. Similar symptoms previously. Recent medical care: The patient was seen recently in the emergency department.REVIEW OF SYSTEMSNo fever, chills or eye irritation or irritation. No difficulty with urination or urination, urinary frequency orurinary frequency or hematuria. No s kin rash or rash, headache or depression. No sore throat or throat,cough, difficulty breathing or chest pain. No abdominal pain or pain, nausea, vomiting or diarrhea. Noblack stools, bloody stools, chills, fever or double vision. No ear pain, nasal congestion, cough, difficultybreathing or diarrhea. No nausea, vomiting, headache, seizure or easy bruising. No extremity swelling.The patient has had back pain but no pain on weight bearing.PAST HISTORYSee nurses notes. Problems: Hypertension. Additional Surgeries: Abdominal Hernia Repair. Adenoidectomy. Bowel obstruction. . Hernia Repair. Tonsillectomy. Medications: Gabapentin Oral. None. 2 Clinical Report - Physicians/Mid Levels [facility] Emergency Department [address] [place] [address] Phone #: ext- [phone] 12/20/2020 00:23 Patient: ARNOLDO RAMIREZ [facility]#: [id number] Sex: F : 1975 Age: 45y Allergies: No Known Drug Allergy.SOCIAL HISTORYNo drug use.ADDITIONAL NOTESThe nursing notes have been reviewed.PHYSICAL EXAMVital Signs: 12/20/2020 00:31 BP: 154/80. MAP: 104. HR: 81. RR: 19. O2 saturation: 98% on room air.Temp: 97.2 F. Pain level now: 08/12. Have been reviewed and appear to be correct. Hypertensive.Mean arterial pressure- high. Heart rate normal. Respiratory rate normal. Temperature normal.Oxygen saturation normal.Appearance: Alert. No acute distress.HEENT: Normal external inspection.Eyes: Pupils equal, round and reactive to light.ENT: Ears normal. Pharynx normal.Neck: Normal inspection. Neck nontender. Painless ROM.CVS: Heart sounds normal. Pulses normal.Respiratory: No respiratory distress. Painless inspiration. Breath sounds normal.Abdomen: No visible injury. Soft and nontender. Bowel sounds normal.Back: Normal inspection. No tenderness. Painless ROM.Skin: Skin warm and dry. Normal skin color. No rash. Normal skin turgor.Extremities: Extremities exhibit normal ROM. Extremities nontender.Neuro: Oriented X 3. Mood/affect normal. No motor deficit. No sensory deficit.PROGRESS AND PROCEDURESCourse of Care: pt with chronic back pain. pt presents to the ed with her chronic pain. she denies anybowel or bladder incontinence or any saddle paresthesia. pt denies any bladder complaints. pt wasgiven toradol im, prednisone po, and flexeril. she states her only medication is gabapentin. will rx flexeriland prednisone. pt instructed to f/u with her doctor. she denies being seen by ortho. will give her areferral to [facility] orth[facility]. pt encouraged to return if worse or any new symptoms. Patient/family counseled. Disposition: Discharged. Condition: good and stable.CLINICAL IMPRESSION Chronic nontraumatic lumbar back pain. 3 Clinical Report - Physicians/Mid Levels [facility] Emergency Department [address] [place] [address] Phone #: ext- [phone] 12/20/2020 00:23 Patient: ARNOLDO RAMIREZ Sex: F : 1975 Age: 45yINSTRUCTIONS Limit lifting. No strenuous activity. (continue to take your gabapentin. take the flexeril and prednisone as prescribed. return if worse or any new symptoms.). Warnings: GENERAL WARNINGS: Return or contact your physician immediately if your condition worsens or changes unexpectedly, if not improving as expected, or if other problems arise. Your Current Medications: Your current home medications have been reviewed. No home medication. CONTINUE TAKING THE FOLLOWING MEDICATIONS: Gabapentin Oral. Prescription Medications: prednisone 20 mg tablet Take 3 tablet once a day for 5 days -- Dispense 15 tablet. Refills: 0. Substitution permitted. [facility] [address] [place], [place] [phone]. . cyclobenzaprine 10 mg tablet Take 1 tablet every eight hours as needed for pain for 7 days -- prn muscle spasm. Dispense 21 tablet. Refills: 0. Substitution permitted. [facility] - [address] [place], [place] [phone]. Phone: . Follow-up: Follow up with your doctor tomorrow even if well. Call for an appointment. Reason for referral: evaluation. Summary of care provided to patient via paper. Understanding of the discharge instructions verbalized by patient. Follow-up with: [facility], , , [address] [address], , [place], [address] Follow up in three days even if well. Call for an appointment. Reason for referral: evaluation. Summary of care provided to patient via paper.(Electronically signed by Geetha Doll MD 12/20/2020 01:48) Name Value Range Interpretation Code Description Data Tiff rce(s) Supporting Document(s) ID Date Data Source [id number] 12/02/2020 12:00:00 AM EDT [facility] Name Value Range Interpretation Code Description Data Tiff rce(s) Supporting Document(s) SARS-CoV2 Rapid Antigen Negative [facility] This lab was ordered by [facility] and reported by [facility]. ID Date Data Source [id number] 11/03/2020 08:00:[address] [facility] TRANSVAGINAL [id number] RESULTInterpr eted by:Alex Graham MDULTRASOUND PELVIS TRANSABDOMINAL TRANSVAGINAL. COLOR DOPPLER PELVIS.INDICATION: Concern for ovarian cancer, groin swelling, abdominal bloating. TECHNIQUE: Multiple real-time transabdominal and transvaginal sonographic images of the pelvis were obtained. Then, color and spectral waveform Doppler was utilized to interrogate the pelvic organs.COMPARISON: CT abdomen and pelvis dated 12/17/1999 813FINDINGS: Evaluation of the uterus is limited. The uterus is enlarged, heterogenous and with multiple fibroids. It measures 16.3 x 8.4 x 10.5 cm (volume 756 mL). The endometrial stripe measures 1.4 cm. The largest fibroids in the uterus are intramural measured 4.3 x 4.0 x 5.6 cm and 4.4 x 3.7 x 4.5 cm.The bilateral ovaries were not visualized.No free fluid in the visualized pelvis.IMPRESSION:Limited exam. Heterogenous, enlarged and myomatous uterus, similar to the prior CT. The ovaries were not visualized. Further evaluation with CT of the abdomen and pelvis is recommended if clinically indicated.This document has been electronically signed by Loretta Sierra DO on 11/03/2020 7:58 AM Name Value Range Interpretation Code Description Data Tiff rce(s) Supporting Document(s) ID Date Data Source [id number] 08/24/2020 05:42:00 AM EDT [facility] Patient: ARNOLDO RAMIREZ Observation Report - Physicians/Mid Levels Hospital, [facility].VisitID: [id number] [place] [address] [phone], [facility] Date/Time: 08/23/2020 22:47 Weight:85.2 kg (S). Height/Length:62 inches (S). BMI:34.4 PAST HISTORYProblems:Hernia.Lumbar Radiculopathy.Spinal Cord Compression. Additional Surgeries:Bowel Surgery..Hernia Repair.Tonsillectomy. Medications:Gabapentin Oral, 3x a day, last dose this afternoon.traZODone HCl Oral 50 mg, daily at bedtime, last dose 7pm last night. Allergies:No Known Drug Allergy. FAMILY HISTORYNo significant family medical history. (Electronically signed by Gerardo Gonzalez 08/24/2020 05:34) Name Value Range Interpretation Code Description Data Tiff rce(s) Supporting Document(s) ID Date Data Source URINE CULTURE 08/23/2020 12:00:00 AM EDT eCW1 ([facility]) Name Value Range Interpretation Code Description Data Tiff rce(s) Supporting Document(s) URINE CULTURE eCW1 ([facility]) ID Date Data Source UA URINALYSIS 08/23/2020 12:00:00 AM EDT eCW1 ([facility]) Name Value Range Interpretation Code Description Data Tiff rce(s) Supporting Document(s) UA URINALYSIS eCW1 ([facility]) ID Date Data Source [id number] 08/05/2020 07:08:00 PM EDT [facility] Patient: ARNOLDO RAMIREZ Observation Report - Physicians/Mid Levels [place] [address].VisitID: [id number] [place] [address] [phone], [facility] Date/Time: 08/04/2020 00:43 Weight:88.4 kg (S). Height/Length:62 inches (S). BMI:35.7 PAST HISTORYProblems:Hernia. Additional Surgeries:Bowel Surgery..Hernia Repair.Tonsillectomy. Medications:traZODone HCl Oral 50 mg, daily at bedtime, last dose 7pm last night. Allergies:No Known Drug Allergy. FAMILY HISTORYNo significant family medical history. (Electronically signed by Emir Mcdaniels P.A. 08/04/2020 02:17) Name Value Range Interpretation Code Description Data Tiff rce(s) Supporting Document(s) ID Date Data Source [id number] 08/04/2020 05:34:00 AM EDT [facility] DATE OF EXAMINATION: 08/04/2020 1:09 EDT L SPINE W/O IV CONTRAST HISTORY: Radicular pain radiating to the lower extremity. TECHNIQUE: This CT exam was performed using the following dose reduction techniques:automated exposure control, adjustment of mA and/or kV according to thepatient's size, and use of iterative reconstruction technique. Standard contiguous axial spiral imaging of the lumbar spine was obtained withsagittal/coronal reformatting. FINDINGS: Alignment and lordosis is maintained and there is no evidence for acutefracture/compression injury or subluxation. No spondylolysis orspondylolis thesis is appreciated. At the L4-5 level there is a small to moderate right paracentral disc bulgealong with mild ligamentous hypertrophy and facet arthropathy which causeseffacement of the thecal sac and exiting right-sided nerve root. Remainder of the lumbar disc levels demonstrate small posterior disc bulgeswhich cause mild effacement along the anterior margin of the thecal sac but novisible treatment on the exiting nerve roots. IMPRESSION:Focal moderate changes along the L4-5 level.Mild multilevel degenerative changes at the remainder of the lumbar levels. Electronically signed in PS360 by: Diaz Matthew M.D. 08/04/2020 5:28 EDT Name Value Range Interpretation Code Description Data Tiff rce(s) Supporting Document(s) ID Date Data Source PLZ CHEST 2 VIEW 07/16/2020 12:00:00 AM EDT eCW1 ([facility]) Name Value Range Interpretation Code Description Data Tiff rce(s) Supporting Document(s) PLZ CHEST 2 VIEW eCW1 ([facility]) ID Date Data Source [id number] [id number] FOL 07/16/2020 12:00:00 AM EDT eCW1 ([facility]) Name Value Range Interpretation Code Description Data Tiff rce(s) Supporting Document(s) 728 VITAMIN B12 LEVEL eCW1 ([facility]) 8.8 FOLATE eCW1 ([facility]) ID Date Data Source MAGNESIUM LEVEL 07/16/2020 12:00:00 AM EDT eCW1 ([facility]) Name Value Range Interpretation Code Description Data Tiff rce(s) Supporting Document(s) 1.5 1.8-2.4 MAGNESIUM LEVEL eCW1 ([facility]) ID Date Data Source [id number] 07/16/2020 12:00:00 AM EDT eCW1 ([facility]) Name Value Range Interpretation Code Description Data Tiff rce(s) Supporting Document(s) Albumin/Creatinine [Mass Ratio] in Urine 7.7 MALB URINE SIEMENS eCW1 ([facility]) Microalbumin/Creatinine [Mass Ratio] in Urine 28.8 CREATININE, URINE eCW1 ([facility]) Microalbumin/Creatinine [Ratio] in Urine 26.7 0.0-30.0 TAJ/CREAT RATIO eCW1 ([facility]) ID Date Data Source TSH 07/16/2020 12:00:00 AM EDT eCW1 ([facility]) Name Value Range Interpretation Code Description Data Tiff rce(s) Supporting Document(s) 2.500 0.358-3.740 THYROID STIMULATING HORM ONE eCW1 ([facility]) ID Date Data Source LIPID PANEL (CARDIAC RISK) 07/16/2020 12:00:00 AM EDT eCW1 ( [facility]) Name Value Range Interpretation Code Description Data Tiff rce(s) Supporting Document(s) Triglyceride [Mass/volume] in Serum or Plasma by calculation 282 <150 TRIGLYCERIDES LEVEL eCW1 ([facility]) Cholesterol in HDL [Moles/volume] in Serum or Plasma 31 >40 HDL CHOLESTEROL eCW1 ([facility]) Cholesterol [Moles/volume] in Serum or Plasma 124 <200 CHOLESTEROL LEVEL eCW1 ([facility]) Cholesterol in LDL [Mass/volume] in Serum or Plasma by calculation 37 <100 LDL CHOLESTEROL eCW1 ([facility]) 93 NON-HDL-C eCW1 ([facility]) 4.000 <5 CHOLESTEROL RISK RATIO eCW ([facility]) ID Date Data Source [id number] 07/16/2020 12:00:00 AM EDT eCW1 ([facility]) Name Value Range Interpretation Code Description Data Tiff rce(s) Supporting Document(s) Hemoglobin A1c/Hemoglobin.total in Blood 12.2 HEMOGLOBIN A1c eCW1 ([facility]) ID Date Data Source FREE T4 07/16/2020 12:00:00 AM EDT eCW1 ([facility]) Name Value Range Interpretation Code Description Data Tiff rce(s) Supporting Document(s) 1.05 0.76-1.46 FREE T4 eCW1 ([facility]) ID Date Data Source Comprehensive Metabolic Profile (CMP) 07/16/2020 12:00:00 AM EDT eCW1 ([facility]) Name Value Range Interpretation Code Description Data Tiff rce(s) Supporting Document(s) 396 70-100 GLUCOSE, FASTING eCW1 ([facility]) 0.58 0.55-1.30 CREATININE FOR GFR eCW1 ([facility]) > 60.0 >58 GLOMERULAR FILTRATION RATE eCW 1 ([facility]) 15 7-18 BLOOD UREA NITROGEN eCW1 ([facility]) 4.1 3.5-5.1 POTASSIUM SERUM eCW1 ([facility]) 100 98-107 CHLORIDE LEVEL eCW1 ([facility]) 135 136-145 SODIUM LEVEL eCW1 ([facility]) 9.2 8.5-10.1 CALCIUM LEVEL eCW1 ([facility]) 26 21-32 CARBON DIOXIDE LEVEL eCW1 ([facility]) 24 7-37 AST/SGOT eCW1 ([facility]) 0.3 0.2-1.0 BILIRUBIN,TOTAL eCW1 ([facility]) 95 45-117 ALKALINE PHOSPHATASE eCW1 ([facility]) 29 12-78 ALT/SGPT eCW1 ([facility]) 0.9 1.2-2.2 ALBUMIN/GLOBULIN RATIO eCW1 ([facility]) 6.8 6.4-8.2 TOTAL PROTEIN eCW1 ([facility]) 3.3 3.2-5.2 ALBUMIN eCW1 ([facility]) ID Date Data Source CBC with Differential 07/16/2020 12:00:00 AM EDT eCW1 ([facility]) Name Value Range Interpretation Code Description Data Tiff rce(s) Supporting Document(s) 12.1 4.0-10.0 WHITE BLOOD COUNT eCW1 ([facility]) 4.42 4.00-5.40 RED BLOOD COUNT eCW1 ([facility]) 12.4 12.0-15.5 HEMOGLOBIN eCW1 ([facility]) 87.1 80.0-96.0 MEAN CORPUSCULAR VOLUME e CW1 ([facility]) 38.5 36.0-47.0 HEMATOCRIT eCW1 ([facility]) 32.2 32.0-36.5 MEAN CORPUSCULAR HGB CONC eCW1 ([facility]) 28.1 27.0-33.0 MEAN CORPUSCULAR HEMOGLOB IN eCW1 ([facility]) 13.1 11.5-14.5 RED CELL DISTRIBUTION WID TH eCW1 ([facility]) 77.5 36.0-66.0 NEUTROPHILS % eCW1 ([facility]) 433 150-450 PLATELET COUNT, AUTOMATED eCW1 ([facility]) 14.9 24.0-44.0 LYMPH % eCW1 ([facility]) 2.1 0.0-3.0 EOS % eCW1 ([facility]) 0.7 0.0-1.0 BASO % eCW1 ([facility]) 3.1 2.0-8.0 MONO % eCW1 ([facility]) 1.8 1.5-5.0 LYMPH # eCW1 ([facility]) 0.4 0.0-0.8 MONO # eCW1 ([facility]) 9.4 1.5-8.5 NEUTROPHILS # eCW1 ([facility]) 0.1 0.0-0.2 BASO # eCW1 ([facility]) 0.3 0.0-0.5 EOS # eCW1 ([facility]) ID Date Data Source [id number] 07/08/2020 03:32:00 PM EDT [facility] Name Value Range Interpretation Code Description Data Tiff rce(s) Supporting Document(s) SARS coronavirus 2 RNA [Presence] in Res piratory specimen by MELY with probe detection NEGATIVE [facility] This lab was ordered by [facility] a nd reported by [facility]. ID Date Data Source [id number] 07/03/2020 09:56:00 AM EDT [facility] Name Value Range Interpretation Code Description Data Tiff rce(s) Supporting Document(s) SARS-CoV-2 (COVID 19) NEGATIVE - SARS-CoV-2 (COVID19) [facility] This lab was ordered by [facility] a nd reported by [facility]. ID Date Data Source [id number] 06/29/2020 10:14:00 AM EDT [facility] [address] [place] [address] PHONE: [phone] FAX: [phone] Name .................. : HARLAN Benz Acct Number.................. : [id number] ROOM. ................. : TR-06 MR Number ................... : [id number] Stay type ............. : E/R Discharge Date......... ... : 06/26/20 Admit Date ......... : 06/26/20 Admit Phys .................... : COONEYNORM Date of ....... : 1975 Family Phys ................... : NO PCP Phone .................. : [phone] Age ................................ : 44 Film# .................. .:[id number] Sex ................................. : F Unsigned transcriptions are preliminary reports and do not represent a medical or legal document DOPPLER UNILATERAL VENOUS 22490 COMPLETE:06/26/20 12:37 ADB 9539 Reason(s): Pain, Limb LEFT LOWER EXTREMITY VENOUS DOPPLER ULTRASOUND: INDICATION: 44-year-old female with left leg pain. FINDINGS: Olson scale and color Doppler imaging with wave form analysis from the left common femoral vein into the calf veins. Normal compressibility, augmentation and color flow Doppler. IMPRESSION: No evidence of deep venous thrombosis. Electronically Reviewed and Signed By Ismael Randall MD , 06/29/20 10:14, ISI Transcribe Initials: CELESTE , Transcribe Date: 06/26/20 13:58, Dictation Date: Copy for: LITA SNYDER via fax Copy for: EMERGENCY DEPT via modem Copy for: 710 MED REC DISCHARGED Page 1 of 1 Name Value Range Interpretation Code Description Data Tiff rce(s) Supporting Document(s) ID Date Data Source [id number] 06/26/2020 10:22:00 AM EDT [facility] 1 OrderSheet [facility] Emergency Department [address] [place] [address] Phone #: ext- [phone] 06/26/2020 10:17 Patient: ARNOLDO RAMIREZ Sex: F : 1975 Age: 44yWEIGHT:90.7 kg (S) HEIGHT:62 inches (S) BMI:36.6ALLERGIES: No Known Drug AllergyCHIEF COMPLAINT: painDIAGNOSIS: Vaginitis, Hypertensive disorder, Diabetes mellitus, Muscle strainLAB ORDERSOrder Description Priority Entered Acknowledged InitialedUrinalysis (Clean STAT 10:45 06/26/2020 10:55 Sorbrob,Catch) Kane TRUJILLO;Beta-HCG, Qual STAT 10:45 06/26/2020 10:55 Sorbrob,Urine Kane TRUJILLO;DIAGNOSTIC STUDY ORDERSOrder Description Priority Entered Acknowledged InitialedUS Lower Ext STAT 10:45 06/26/2020 10:55 Flores,Venous Left Kane Garcia R.N.(Oxygen?(No)) PA; Reason for Study: Pain, LimbMEDICATION/IV/DRIP/FLUID ORDERSOrder Description Priority Entered Acknowledged InitialedToradol IM 60 mg 10:45 06/26/2020 10:55 Kane Tanner R.N.;Tylenol PO 1000 10:45 06/26/2020 10:55 Flores,mg Kane TRUJILLO;Valium PO 5 mg 10:45 06/26/2020 10:55 Kane Tanner R.N.;GENERAL ORDERSOrder Description Priority Entered Acknowledged InitialedAccucheck 12:23 06/26/2020 12:47 Jenna Johnson RN PA; 2 OrderSheet [facility] Emergency Department [address] [place] [address] Phone #: ext- [phone] 06/26/2020 10:17 Patient: ARNOLDO RAMIREZ Sex: F : 1975 Age: 44y[Electronically signed by Jose Tanner R.N. (14:58 06/26/2020)][Electronically signed by Kane Conteh (10:28 06/27/2020)][Electronically locked by Jose Tanner R.N. (14:58 06/26/2020)] Name Value Range Interpretation Code Description Data Tiff rce(s) Supporting Document(s) ID Date Data Source [id number] 06/26/2020 10:22:00 AM EDT [facility] 1 Medication Reconciliation Report [facility] Emergency Department [address] [place] [address] Phone #: ext- [phone] 06/26/2020 10:17 Patient: ARNOLDO RAMIREZ Sex: F : 1975 Age: 44yWeight: 90.7 kgHeight/Length: 62 in.BMI: 36.6ALLERGIES: No Known Drug AllergyThe patient's Home Medications are listed below:NONE.The source(s) of the original Home Medication information:patientThe following Medications were given to the patient in the Emergency De partment:Toradol [IM] IM 60 mg, administered: 10:55 06/26/2020Tylenol [PO] PO 1000 mg, administered: 10:55 06/26/2020Valium [PO] PO 5 mg, administered: 10:55 06/26/2020The following Medications were prescribed to the patient:gabapentin 100 mg capsule Take 1 capsule three times a day for 30 days -- Dispense 90 capsule.Refills: 0. Substitution permitted.[facility] - [address] [place], [place] [phone]. .methocarbamol 500 mg tablet Take 1 tablet three times a day for 10 days -- Dispense 30 tablet. Refills:0. Substitution pe rmitted.[facility] #[facility] - [address], [place] [phone]. .IBU 400 mg tablet Take 1 tablet three times a day for 15 days -- Dispense 45 tablet. Refills: 0.Substitution permitted.[facility] - [address], [place] [phone]. FaxNumber: [phone].fluconazole 150 mg tablet Take 1 tablet single dose as needed for 1 days -- May repeat in 1 week if s/s 2 Medication Reconciliation Report [facility] Emergency Department [address] [place] [address] Phone #: ext- [phone] 06/26/2020 10:17 Patient: ARNOLDO RAMIREZ Sex: F : 1975 Age: 44ypersist. Dispense 2 tablet. Refills: 0. Substitution permitted.[facility] - [address] [place], [place] [phone]. . -- RONNIE Conory Name Value Range Interpretation Code Description Data Tiff rce(s) Supporting Document(s) ID Date Data Source [id number] 06/26/2020 10:22:00 AM EDT [facility] 1 Medication Administration Record [facility] Emergency Department [address] [place] [address] Phone #: ext- [phone] 06/26/2020 10:17 Patient: ARNOLDO RAMIREZ Sex: F : 1975 Age: 44yWeight: 90.7 kgHeight/Length: 62 inBMI: 36.6ALLERGIES: No Known Drug Allergy Date/Time Medication Administered Medication OrderedGiven TORADOL [IM] (KETOROLAC Toradol IM 60 mg10:55 06/26/2020 TROME THAMINE)Jose Tanner R.N. Dose: 60 mg IMGiven TYLENOL [PO] (APAP) Tylenol PO 1000 mg10:55 06/26/2020 Dose: 1000 mg Tablets POSJose martinez R.N.Given VALIUM [PO] (DIAZEPAM) Valium PO 5 mg10:55 06/26/2020 Dose: 5 mg Tablets Jose Molina R.N. Name Value Range Interpretation Code Description Data Tiff rce(s) Supporting Document(s) ID Date Data Source [id number] 06/26/2020 10:22:00 AM EDT [facility] 1 General Instructions [facility] Emergency Department [address] [place] [address] Phone #: ext- [phone] 06/26/2020 10:17 [id number] Sex: F : 1975 Age: 44yMuscle strain of the left quadriceps and posterior aspect of the left lower leg.New onset type 2 diabetes with hyperglycemia. No diabetic ketoacidosis or hyperosmolar nonketotic state.Essential hypertension.Acute mild boone vaginitisINSTRUCTIONSWarnings: Further evaluation is necessary in order to recheck abnormal lab and conduct further tests. It isvery important to follow up with a healthcare provider.GENERAL WARNINGS: Return or contact your physician immediately if your condition worsens orchanges unexpectedly, if not improving as expected, or if other problems arise. Specifically return if painworsens.Your Current Medications: .No home medication.Prescription Medications:gabapentin 100 mg capsule Take 1 capsule three times a day for 30 days -- Dispense 90 capsule.Refills: 0. Substitution permitted.Pharmacy - [facility] - [address] [facility] ; [place], [place] [phone]. .methocarbamol 500 mg tablet Take 1 tablet three times a day for 10 days -- Dispense 30 tablet. Refills:0. Substitution permitted.[facility] - [address] [place], [place] [phone]. .IBU 400 mg tablet Take 1 tablet three times a day for 15 days -- Dispense 45 tablet. Refills: 0.Substitution permitted.[facility] - [address] [place], [place] [phone]. .fluconazole 150 mg tablet Take 1 tablet single dose as needed for 1 days -- May repeat in 1 week if s/spersist. Dispense 2 tablet. Refills: 0. Substitution permitted.[facility] - [address] [place], [place] [phone]. .Follow-up: 2 General Instructions [facility] Emergency Department [address] [place] [address] Phone #: ext- [phone] 06/26/2020 10:17 Patient: ARNOLDO RAMIREZ Sex: F : 1975 Age: 44yFollow up with your healthcare provider [phone] call [facility] for an appointment Sunday.Call for the next available appointment. Reason for referral: evaluation, treatment and EvaluateHypertenison, Diabetes and Leg Pain. Summary of care provided to patient.Understanding of the discharge instructions verbalized by patient. ADDITIONAL INFORMATIONMuscle Strain in the ExtremitiesA muscle strain is a stretching and tearing of muscle fibers. This causes pain, especially when youmove that muscle. There may also be some swelling and bruising.Home care Keep the hurt area raised above heart level to reduce pain and swelling. This is especially important during the first 48 hours. Apply an ice pack over the injured area for 15 to 20 minutes every 3 to 6 hours. You should do this for the first 24 to 48 hours. You can make an ice pack by filling a plastic bag that seals at the top with ice cubes and then wrapping it with a thin towel. Be careful not to injure your skin with the ice treatments. Ice should never be applied directly to skin. Continue the use of ice packs for relief of pain and swelling as needed. After 48 hours, apply heat (warm shower or warm bath) for 15 to 20 minutes several times a day, or alternate ice and heat. You may use rfnb-tms-hbffazs pain medicine to control pain, unless another medicine was prescribed. If you have chronic liver or kidney disease or ever had a stomach ulcer or gastrointestinal bleeding, talk with your healthcare provider before using these medicines. For leg strains: If crutches have been recommended, don't put full weight on the hurt leg until you can do so without pain. You can return to sports when you are able to hop and run on the injured leg without pain.Follow-up careFollow up with your healthcare provider, or as advised.When to seek medical adviceCall your healthcare provider right away if any of these occur: The toes of the injured leg become swollen, cold, blue, numb, or tingly Pain or swelling increases 3 General Instructions [facility] Emergency Department [address] [place] [address] Phone #: ext- [phone] 06/26/2020 10:17 Patient: ARNOLDO RAMIREZ Sex: F : 1975 Age: 44y [phone] [employer] [place] [address]. All rights reserved. This information is not intended as asubstitute for professional medical care. Always follow your healthcare professional's instructions.Diabetes with High Blood SugarYou have been treated for high blood sugar (hyperglycemia). This may be because of an infection orother illness. Or it may be from eating too many sweets or starches. Or it may be from not takingenough insulin or other diabetes medicine.Home careCheck your blood sugar level at least 2 times a day. Write it down the results. Do this beforebreakfast and before dinner. If you take insulin, also write down your routine insulin dose. Note anyother doses you needed based on your sliding scale or as advised by your healthcare provider. [place] for the next 3 to 5 days.High blood sugar may cause symptoms that you can learn to spot. These include: Peeing often Thirst Headache Breath that smells fruity Nausea or vomiting Belly painIf you have symptoms of high blood sugar, use a blood or urine test to find out what your blood sugarlevel is. If it is above your usual range, use the sliding scale regular insulin dose from your healthcareprovider. Call your provider for advice if you were not given a range for your insulin dose. If yourblood sugar is over 240 mg/dL, check your urine for ketones.Follow-up careFollow up with your healthcare provider, or as advised. You may need to meet with your provider inthe next week. You will likely look at your blood sugar records together. You may need to changeyour dose of insulin or other diabetes medicine.When to seek medical adviceCall your healthcare provider right away if these occur: Symptoms of high blood sugar that don't get better with the treatment your provider advised. 4 General Instructions [facility] Emergency Department [address] [place] [address] Phone #: [phone]- [phone] 06/26/2020 10:17 Patient: ARNOLDO RAMIREZ Sex: F : 1975 Age: 44y This is especially true if you also have ketones in your urine. Blood sugar over 300 mg/dl. If you can't reach your healthcare provider, go to a hospital emergency room or urgent care center.Call 911Call 911 if you have any of the following: Confusion Dizziness, lightheadedness, or loss of consciousness Shortness of breath Chest pain Weakness of an arm, leg, or one side of the face Sudden trouble with speech or vision [phone] [employer] [place] [address]. All rights reserved. This information is not intended as asubstitute for professional medical care. Always follow your healthcare professional's instructions.High Blood Pressure, To Be Confirmed, No TreatmentYour blood pressure today was higher than normal. Sometimes anxiety, pain, or other issues cancause a short-term rise in blood pressure. It later returns to normal. Blood pressure that is high ian time doesn't mean that you have high blood pressure (hypertension). High blood pressure is along-term (chronic) illness. But you should have your blood pressure measured again in the next fewdays to find out if it's still high.Blood pressure measurements are given as 2 numbers. Systolic blood pressure is the upper number.This is the pressure when the heart contracts. Diastolic blood pressure is the lower number. This isthe pressure when the heart relaxes between beats. You will see your blo od pressure readingswritten together. For example, a person with a systolic pressure of 118 and a diastolic pressure of 78will have 118/78 written in the medical record. 5 General Instructions [facility] Emergency Department [address] [place] [address] Phone #: ext- [phone] 06/26/2020 10:17 [id number] Sex[facility] F : 1975 Age: 44yBlood pressure is classified as normal, raised (elevated), or stage 1 or stage 2 high blood pressure: Normal blood pressure. Systolic of less than 120 and diastolic of less than 80 (120/80). Elevated blood pressure. Systolic of 120 to 129 and diastolic less than 80. Stage 1 high blood pressure. Systolic is 130 to 139 or diastolic between 80 to 89. Stage 2 high blood pressure. Systolic is 140 or higher or the diastolic is 90 or higher.Lifestyle changes can help manage your blood pressure. These include weight loss, exercise, andquitting smoking. Have your blood pressure checked regularly to be sure it is under control.Home careTo track your blood pressure, your healthcare provider may ask you to come into the office atdifferent times and on different days. If your provider asks you to check your readings at home, askhim or her what times of the day to test and for how many days. Before you leave the office, ask yourprovider to show you how to take your blood pressure. Ask questions if you don't understandsomething.Using a home blood pressure monitorThink about buying an automatic blood pressure monitor. Ask your provider for a recommendation aswell as the correct size cuff to fit your arm. You can buy blood pressure monitors at most pharmacies.The [employer] advises the following guidelines for home blood pressure monitoring: Don't smoke or drink coffee or other caffeinated drinks for 30 minutes before taking your blood pressure. Go to the bathroom before the test. Relax for 5 m inutes before taking the measurement. Sit with your back supported (don't sit on a couch or soft chair). Keep your feet on the floor uncrossed. Place your arm on a solid flat surface (like a table) with the upper part of the arm at heart level. Place the middle of the cuff directly above the bend of the elbow. Check the monitor's instruction manual for an illustration. Take multiple readings. When you measure, take 2 to 3 readings one minute apart. Record all of the results. Take your blood pressure at the same time every day, or as your provider advises. Record the date, time, and blood pressure reading. Take the record with you to your next medical appointment. If your blood pressure monitor 6 General Instructions [facility] Emergency Department [address] [place] [address] Phone #: ext- [phone] 06/26/2020 10:17 Patient: ARNOLDO RAMIREZ Sex: F : 1975 Age: 44y has a built-in memory, simply take the monitor with you to your next appointment. Call your provider if you have several high readings. Don't be frightened by a single high blood pressure reading. But if you get a few high readings, check in with your provider.Follow-up careKeep all of your follow-up appointments. If your blood pressure is more than 120 over 80 on 2 out of 3days, you will need to follow up with your healthcare provider for more evaluation and treatment.Don't put this off! High blood pressure can be treated. High blood pressure that's not treated raisesyour risk for heart attack, heart failure, kidney disease, and stroke.Call [phone] 911 if you have any of these: Blood pressure of 180/120 or higher Chest pain or shortness of breath Weakness of an arm or leg or one side of the face Problems speaking or seeingWhen to get medical adviceCall your healthcare provider right away if any of these occur: Severe headache Throbbing or rushing sound in the ears Nosebleed Sudden severe pain in your belly (abdomen) Extreme drowsiness, confusion, or fainting Dizziness or dizziness with spinning feeling (vertigo) [phone] [employer] [place] [address]. All rights reserved. This information is not intended as asubstitute for professional medical care. Always follow your healthcare professional's instructions.Yeast Infection (Boone Vaginal Infection) 7 General Instructions [facility] Emergency Department [address] [place] [address] Phone #: ext- [phone] 06/26/2020 10:17 Patient: ARNOLDO RAMIREZ Sex: F : 1975 Age: 44yYou have a Boone vaginal infection. This is also known as a yeast infection. It is most often causedby a type of yeast (fungus) called Boone. Boone are normally found in the vagina. But if theyincrease in number, this can lead to infection and cause symptoms.Symptoms of a yeast infection can include: Clumpy or thin, white discharge, which may look like cottage cheese Itching or burning Burning with urinationCertain factors can make a yeast infection more likely. These can include: Taking certain medicines, such as antibiotics or control pills Diabetes Weak immune systemA yeast infection is most often treated with antifungal medicine. This may be given as a vaginal creamor pills you take by mouth. Treatment may last for about 1 to 7 days. Women with severe or recurrentinfections may need longer courses of treatment.Home care If you're prescribed medicine, be sure to use it as directed. Finish all of the medicine, even if your symptoms go away. Note: Don't try to treat yourself using atzo-qih-upaydvs products without talking to your provider first. He or she will let you know if this is a good option for you. Ask your provider what steps you can take to help reduce your risk of h aving a yeast infection 8 General Instructions [facility] Emergency Department [address] [place] [address] Phone #: ext- [phone] 06/26/2020 10:17 Patient: [facility]OL[facility] RAMIRE[id number] Sex: F : 1975 Age: 44y in the future.Follow-up careFollow up with your healthcare provider, or as directed.When to seek medical adviceCall your healthc are provider right away if: You have a fever of 100.4F (38C) or higher, or as directed by your provider. Your symptoms worsen, or they don't go away within a few days of starting treatment. You have new pain in the lower belly or pelvic region. You have side effects that bother you or a reaction to the cream or pills you're prescribed. You or any partners you have sex with have new symptoms, such as a rash, joint pain, or sores. [phone] [employer]. [address] [place] [address], [place] [address]. All rights reserved. This information is not intended as asubstitute for professional medical care. Always follow your healthcare professional's instructions. You have been given the following additional information: Muscle Strain, Extremity Diabetes with High Blood Sugar Hypertension, To Be Confirmed Yeast Infection, Vaginal (Boone Vaginal Infection)(Electronically signed by RONNIE Conroy 06/27/2020 10:28) Name Value Range Interpretation Code Description Data Tiff rce(s) Supporting Document(s) ID Date Data Source [id number] 06/26/2020 10:22:00 AM EDT [facility] 1 Clinical Report - Nurses [facility] Emergency Department [address] [place] [address] Phone #: tso- [phone] 06/26/2020 10:17 Patient: ARNOLDO RAMIREZ Sex: F : 1975 Age: 44yTRIAGEArrived by EMS. Historian: patient.Triage time: 10:18 06/26/2020. Acuity: LEVEL 4.Chief Complaint: LEFT LOWER EXTREMITY PAIN.Alert. No acute distress.No injury occurred. Onset. (3 WEEKS AGO). ( Pt states for the past 3 weeks she has had left leg painfrom the hip down to her foot, denies back pain; Pt denies any other symptoms. Pt went to [facility] and stated "i waited for 40 minutes and someone signed me out". Pt then went to [facility] "they were gonna put me up front but i can't stand the pain"; [facility] Pt [facility] last week for the same pain and was placed on Prednisone and finished ittoday.).Treatment ENRICHMENT DIRECTOR:None.SEPSIS SCREEN: SIRS SCREEN NEGATIVE. SEPSIS SCREEN NEGATIVE. No suspected or confirmedsigns of infection present. (10:24 06/26/2020). --10:24 06/26/20 Josselin Roads R.N.10:18 06/26/20. BP: 216/119. MAP: 151. HR: 63. RR: 16. O2 saturation: 100% on room air. Temp: 99.6 F(oral). Pain level now: 10/12. --10:24 06/26/20 Josselin Rodas R.N.Weight: 90.7 kg stated. Height/Length: 62 inches Per Patient. BMI: 36.6. --10:18 06/26/20 Josselin Rodas R.N.MedicationsNone. --10:06/26/20 Josselin Rodas R.N.AllergiesNo Known Drug Allergy. --10:06/26/20 Josselin Rodas R.N.PROBLEMS:Bipolar Disorder. --10:44 06/26/20 Georgie Conroy following entry was modified by RONNIE Conroy, 10:44 06/26/20Bipolar Disorder. --10:06/26/20 Josselin Rodas R.N..Medication/allergy information source: the patient. --10:06/26/20 Josselin Rodas R.N. 2 Clinical Report - Nurses [facility] Emergency Department [address] [place] [address] Phone #: ext- [phone] 06/26/2020 10:17 Patient: ARNOLDO RAMIREZ Sex: F : 1975 Age: 44y ADDITIONAL SURGERIES: . Hernia Repair. Tonsillectomy. --10:22 06/26/20 Josselin Rodas R.N. History PAST MEDICAL HX: Tetanus status: up-to-date. Immunizations: up-to-date. Last normal menstrual period- 04/14/2020; Pt states "i have not had my period in two months" states this is abnormal for her. SOCIAL HX: Current every day heavy tobacco smoker (cigarette)- less than 1 pack per day. No alcohol use or drug use. She was offered HIV testing but declined. Patient education was provided. She was offered hepatitis C testing but declined. Patient education was provided. ( COVID screen negative). She has not traveled outside the [place] Infectious disease exposure: No infectious disease exposure. The patient was not exposed to Coronavirus. Mask placed on patient. Patient is not a known carrier of tuberculosis, hepatitis, HIV, MRSA or VRE. Patient is not a known carrier of CRE. SELF HARM ASSESSMENT: Self harm assessment was performed. The patient answered "no" to the question(s) "Do you have thoughts of harming or killing yourself?" and "Do you have a plan for harming or killing yourself?". ABUSE ASSESSMENT: Abuse assessment. The patient had positive responses to the question(s) "Do you feel safe in your home?". Abuse denied. No suspicion of abuse. No report of abuse. NUTRITIONAL RISK ASSESSMENT: The nutritional risk assessment revealed no deficiencies. LEARNING NEEDS ASSESSMENT: The learning needs assessment revealed no barriers. FALL RISK ASSESSMENT: Fall risk assessment completed. No risk factors identified. FUNCTIONAL ASSESSMENT: Functional assessment performed: mobility impairment present- this mobility impairment is a new problem. SKIN INTEGRITY ASSESSMENT: Skin integrity risk assessment completed. No skin integrity risk identified. --10:24 06/26/20 Josselin Rodas R.N. Interventions Identification band on patient. --10:24 06/26/20 Josselin Rodas R.N.PHYSICAL [id number]:20 06/26/20. To room via stretcher.GENERAL / NEURO / PSYCH: Oriented X 4. Alert. Appears in pain, anxious and in distress.EXTREMITIES: Extremity pulses are within normal limits. Extremities exhibit normal ROM.Neuro-vascular status intact to the extremity. Normal gait. Left thigh: tenderness, swelling and deformitylocated in the lateral aspect of mid thigh. 3 Clinical Report - Nurses [facility] Emergency Department [address] [place] [address] Phone #: ext- [phone] 06/26/2020 10:17 Patient: ARNOLDO RAMIREZ Sex: F : 1975 Age: 44y SKIN: Skin intact. Skin is warm and dry. --10:30 06/26/20 Jose Tanner R.N.NURSING PROGRESS NOTESPatient gowned. Reassurance given. Three patient identifiers checked. Call light placed in reach. Siderails up x 2. Bed placed in lowest position. Brakes of bed on. Patient ready for evaluation- ED physicianand PA notified. --10:24 06/26/20 Josselin Rodas R.N. 10:24 . BP: 182/110 taken on the right arm, manually, while lying. ED physician and RN notified. MAP: 134. Additional comments: taken by Ross Tanner RN. --10:25 06/26/20 Josselin Rodas R.N. 10:55 06/26/2020 Toradol (Ketorolac Tromethamine) IM 60 mg given. Given in the left deltoid. Allergies verified and confirmed 5 rights. Information reviewed with patient including reason for taking this medication, signs of allergic reaction and precautions. Verbalizes understanding. --10:55 06/26/20 Jose Tanner R.N. 10:55 06/26/2020 Tylenol (APAP) PO Tablets 1000 mg given. Allergies verified and confirmed 5 rights. Information reviewed with patient including reason for taking this medication, signs of allergic reaction and precautions. Verbalizes understanding. --10:55 06/26/20 Jose Tanner R.N. 10:55 06/26/2020 Valium (diazePAM) PO Tablets 5 mg given. Allergies verified and confirmed 5 rights. Information reviewed with patient including reason for taking this medication, signs of allergic reaction, precautions and sedative warning. Verbalizes understanding. --10:55 06/26/20 Jose Tanner R.N. 10:55 06/26/20. Patient transported to [facility] by wheelchair with medical transcription radiology. --10:56 4/24/21 Jose Tanner R.N. 11:06/26/20. Patient returned from sonogram by wheelchair with medical transcription radiology. --11:21 06/26/20 Jose Tanner R.N. 11:29 06/26/20. Reassurance given. Reassessment acuity: LEVEL 3. Reassessment after medication administered. No adverse reaction. She is sleeping and has had no adverse reaction. Overall patient status is improved. RESPIRATORY: No respiratory distress. Two patient identifiers checked. Call light placed in reach. Side rails up x 1. Safety measures: (per patient). Bed placed in lowest position. Brakes of bed on. Patient ready for evaluation- PA notified. --11:06/26/20 Jose Tanner R.N. Reassurance given. Reassessment acuity: LEVEL 4. Reassessment after medication administered. No adverse reaction. Pain still present but improving. Reassessment after wound repair. She reports no complaints and she is calm and resting quietly. Overall patient status is improved- she states feels better. Two patient identifiers checked. Call light placed in reach. Side rails up x 1. Bed placed in lowest position. Brakes of bed on. Patient ready for evaluation- PA notified. --12:29 06/26/20 Jose Tanner R.N. 12:28 06/26/20. BP: 172/82 taken on the right arm, manually, while lying. PA notified. MAP: [facility]. --12:29 4 Clinical Report - Nurses [facility] Emergency Department [address] [place] [address] Phone #: ext- [phone] 06/26/2020 10:17 [id number] Sex[facility] F : 1975 Age: 44y 06/26/20 Jose Tanner R.N. ( bg = [phone], kane conteh aware). --12:30 06/26/20 Jose Tanner R.N.DISPOSITION / DISCHARGE 12:48 06/26/20. Condition at departure: improved and stable. The goals identified in the patient's plan of care were met. Fall risk assessment completed. No risk factors identified. No learning barriers present. Discharge instructions provided and reviewed with the patient. Reviewed warnings. Reviewed medication(s) side effects, precautions, dosing and course information. Prescription(s) sent electronically to pharmacy. Treatments reviewed. Reviewed referral to a primary care physician. Reviewed diet (low carb). The patient has no activity restrictions. Patient verbalized understanding. Written instructions provided in [place]alan. The patient was discharged by the physician acute care certified nursing assistant. She was discharged home. She left ambulatory and via taxi. --12:55 06/26/20 Jose Tanner R.N. 12:52 06/26/20. BP: 194/97. MAP: 129. HR: 67. RR: 16. O2 saturation: 99% on room air. Temp: 98.4 F. Pain level now: 06/12. --12:55 06/26/20 Jose Tanner R.N. 13:02 06/26/20. ( waiting for medicaid cab in waiting room.). --13:03 06/26/20 Jose Tanner R.N.Locked/Released at 06/26/2020 14:58 by Jose Tanner R.N. Name Value Range Interpretation Code Description Data Tiff rce(s) Supporting Document(s) ID Date Data Source [id number] 06/26/2020 10:22:00 AM EDT [facility] 1 Clinical Report - Physicians/Mid Levels [facility] Emergency Department [address] [place] [address] Phone #: ext- [phone] 06/26/2020 10:17 Patient: ARNOLDO RAMIREZ Sex: F : 1975 Age: 44y Time Seen: 10:30 06/26/2020. Arrived- By ambulance. Historian- patient and EMS personnel.HISTORY OF PRESENT ILLNESS Chief Complaint: LOWER EXTREMITY PAIN. This started 3 weeks ago and is still present (Pt states for the past 3 weeks she has had left leg pain from the hip down to her foot, denies back pain; Pt denies any other symptoms. Pt went to [facility] this morning and stated "i waited for 40 minutes and someone signed me out". Pt then went to [facility] and "they were gonna put me up front but i can't stand the pain"; Pt called EMS to be brought to this facility. Pt went to [facility] last week for the same pain and was placed on Prednisone and finished it today.). Severity is described as being moderate. It has become recently worse. The quality is noted to be aching, "pain" and similar to prior episodes. Symptoms located in the area of the left thigh, left knee and left leg. The patient has not had redness. No swelling, bladder dysfunction, bowel dysfunction, sensory loss or motor loss. She has had difficulty walking. Patient denies an injury. Recent medical care: The patient was seen recently at another facility in the emergency department.REVIEW OF SYSTEMSLast normal menstrual period- Apr 14. No cough, chest pain, difficulty breathing, fever or skin rash. Noenlarged lymph nodes, neck pain, back pain, headache or blurred vision. No sore throat, abdominal pain,vomiting, diarrhea or black stools. No difficulty with urination or bloody stools.PAST HISTORYAdditional Surgeries:.Hernia Repair.Tonsillectomy. Medications: None. Allergies: No Known Drug Allergy.SOCIAL HISTORYHeavy tobacco smoker (cigarette)- less than 1 pack per day. No alcohol use or drug use.PHYSICAL EXAMVital Signs: 06/26/2020 10:18 BP: 216/119. MAP: 151. HR: 63. RR: 16. O2 saturation: 100% on room air.Temp: 99.6 F. Pain level now: 10/12. Have been r eviewed as abnormal. Hypertensive. Oxygensaturation normal.Appearance: Alert. Oriented X3. No acute distress. 2 Clinical Report - Physicians/Mid Levels [facility] Emergency Department [address] [place] [address] Phone #: ext- [phone] 06/26/2020 10:17 Patient: ARNOLDO RAMIREZ [facility]#: [id number] Sex: F : 1975 Age: 44y Eyes: Pupils equal, round and reactive to light. Eyes normal inspection. ENT: Ears normal. Nose normal. Pharynx normal. Neck: Normal in spection. CVS: Normal heart rate and rhythm. Heart sounds normal. Respiratory: No respiratory distress. Breath sounds normal. Abdomen: Soft and nontender. Back: Normal inspection. No tenderness. ROM normal. Skin: Skin intact. Skin warm and dry. Normal skin color. Normal skin turgor. Extremities: Left thigh: mild tenderness located in the lateral aspect of mid thigh. Neurovascular intact distally. Left knee: mild tenderness located in the posterior knee. Limited ROM secondary to pain. Neurovascular intact distally. No ligamentous laxity present. No joint effusion. Left leg: mild tenderness located in the posterior aspect of mid leg. Neurovascular intact distally. Extremities otherwise negative. Neuro: Oriented X 3.LABS, X-RAYS, AND EKGLower Extremity Sonography: Negative exam on the left side. No compression abnormality noted.Visualized common femoral artery and common femoral vein, superficial femoral artery and superficialfemoral vein, deep femoral artery and deep femoral vein and popliteal artery and popliteal vein. Vesselspatent. Augmented flow present with calf compression. neg DVT. The exam was performed by atechnician. The study was interpreted by the radiologist and contemporaneously by me. Interpretationtime: 12:31 06/26/2020.Laboratory Tests: Laboratory tests have been ordered, with results reviewed and considered in themedical decision making process. Urinalysis: (GOPAL: 06/26/2020 10:45) ( MsgRcvd 06/26/2020 11:40) Final results Test Result Flag Units (Reference) URINALYSIS URINALYSIS SOURCE R COLOR yellow (NORMAL: Yello CLARITY hazy (NORMAL: Clear SPEC GRAVITY 1.015 (1.001 - 1.030 pH 5 (5 - 9) GLUCOSE 1000 A (NORMAL: Negat BILIRUBIN NEG (NORMAL: Negat KETONE 15 A (NORMAL: Negat PROTEIN NEG (NORMAL: Negat NITRITE NEG (NORMAL: Negat BLOOD 50 A (NORMAL: Negat LEUK EST NEG (NORMAL: Negat UROBILINOGEN NOR (less than 1.0 MICROSCOPIC See Below WBC None Seen (NORMAL: NONE RBC 0 - 1 (NORMAL: NONE EPITHELIAL MANY A (NORMAL: NONE YEAST Few A BUDDING Beta-HCG, Qual Urine: (GOPAL: 06/26/2020 10:45) ( MsgRcvd 06/26/2020 11:29) Final results Test Result Flag Units (Reference) 3 Clinical Report - Physicians/Mid [facility] Emergency Department [address] [place] [address] Phone #: ext- [phone] 06/26/2020 10:17 Patient: ARNOLDO RAMIREZ Sex: F : 1975 Age: 44y HCG URINE QUAL NEGATIVE (NORMAL: NEGAT HCG URINE QL REENTER NEGATIVE (NORMAL: NEGAT { KIT LOT # [id number] ){ KIT EXP DATE 01/02/21 ){ PROCEDURAL CONTROL VALID ).PROGRESS AND PROCEDURESCourse of Care: 12:Jun 26 2020. (Discussed Accucheck of 294, pt will follow up whis week with PCPfor evaluation of HTN and Diabetes, pt needs further follow up for leg pain. She is agreeable with dx and txplan.). Patient counseled in person regarding the patient's stable condition, test results, diagnosis and need for follow-up. Patient agrees with plan of care. 12:Jun 26 2020. Disposition: Discharged home in good and improved condition (12:Jun 26 2020).CLINICAL IMPRESSION Muscle strain of the left quadriceps and posterior aspect of the left lower leg. New onset type 2 diabetes with hyperglycemia. No diabetic ketoacidosis or hyperosmolar nonketotic state. Essential hypertension. Acute mild boone vaginitisINSTRUCTIONS Warnings: Further evaluation is necessary in order to recheck abnormal lab and conduct further tests. It is very important to follow up with a healthcare provider. GENERAL WARNINGS: Return or contact your physician immediately if your condition worsens or changes unexpectedly, if not improving as expected, or if other problems arise. Specifically return if pain worsens. Your Current Medications: . No home medication. Prescription Medications: gabapentin 100 mg capsule Take 1 capsule three times a day for 30 days -- Dispense 90 capsule. Refills: 0. Substitution permitted. [facility] [address] [place], [place] [phone]. . methocarbamol 500 mg tablet Take 1 tablet three times a day for 10 days -- Dispense 30 tablet. Refills: 4 Clinical Report - Physicians/Mid Levels [facility] Emergency Department [address] [place] [address] Phone #: ext- [phone] 06/26/2020 10:17 Patient: ARNOLDO RAMIREZ Sex: F : 1975 Age: 44y 0. Substitution permitted. [facility] - [facility] #[address] - [address] [place], [place] [phone]. . IBU 400 mg tablet Take 1 tablet three times a day for 15 days -- Dispense 45 tablet. Refills: 0. Substitution permitted. [facility] [address] [place], [place] [phone]. . fluconazole 150 mg tablet Take 1 tablet single dose as needed for 1 days -- May repeat in 1 week if s/s persist. Dispense 2 tablet. Refills: 0. Substitution permitted. Pharmacy - [facility] [address]47 - [address] [facility] ; [place], [place] [phone]. Phone: . Follow-up: Follow up with your healthcare provider [phone] call [facility] for an appointment Sunday. Call for the next available appointment. Reason for referral: evaluation, treatment and Evaluate Hypertenison, Diabetes and Leg Pain. Summary of care provided to patient. Understanding of the discharge instructions verbalized by patient.(Electronically signed by RONNIE Conroy 06/27/2020 10:28) Name Value Range Interpretation Code Description Data Tiff rce(s) Supporting Document(s) ID Date Data Source [id number] 06/26/2020 11:37:00 AM EDT [facility] Name Value Range Interpretation Code Description Data Tiff rce(s) Supporting Document(s) [facility] COL[facility] yellow NORMAL: Yellow [facility] CLARITY hazy NORMAL: Clear [facility] Specific gravity of Urine by Test strip 1.015 1.001 - 1.030 [facility] pH 5 5 - 9 [facility] Glucose [Mass/volume] in Urine by Test strip 1000 NORMAL: Negat chavez [facility] Bilirubin.total [Presence] in Urine by Test strip NEG NORMAL: Negative [facility] Ketones [Presence] in Urine by Test strip 15 NORMAL: Negative [facility] Protein [Mass/volume] in Urine by Test strip NEG NORMAL: Negat chavez [facility] Nitrite [Presence] in Urine by Test strip NEG NORMAL: Negative [facility] BLOOD 50 NORMAL: Negative [facility] Leukocyte esterase [Presence] in Urine by Test strip NEG GEETHA L: Negative [facility] Urobilinogen [Mass/volume] in Urine by Test strip NOR less alli n 1.0 mg/dL [facility] MICROSCOPIC See Below [facility] ital WBC None Seen NORMAL: NONE SEEN [facility] Erythrocytes [#/volume] in Urine by Test strip 0 - 1 NORMAL: NON E SEEN [facility] EPITHELIAL MANY NORMAL: NONE SEEN A [facility] YEAST Few A [facility] BUDDING ID Date Data Source [id number] 06/26/2020 11:29:00 AM EDT [facility] Name Value Range Interpretation Code Description Data Tiff rce(s) Supporting Document(s) HCG URINE QUAL NEGATIVE NORMAL: NEGATIVE [facility] HCG URINE QL REENTER NEGATIVE NORMAL: NEGATIVE [facility] { KIT LOT # [id number] ){ KIT EXP DATE 01/02/21 ){ PROCEDURAL CONTROL VALID ) ID Date Data Source [id number] 06/21/2020 03:03:[address] [facility] ED Physician Documentation NAME: ARNOLDO RAMIREZ : 1975 AGE: 44 MR#: [id number] SERVICE DATE: 06/21/[address]: Kylah Cerna MD PRIMARY CARE DR: No Family PHYS Provided ROOM#: [facility] (Adult, General) General Chief Complaint: Musculoskeletal Stated Complaint: LEG PAIN Resident LT, travel outisde home, exposure to hot tubs:: No Time Seen by Provider: 06/21/20 02:57 Source: patient Exam Limitations: no limitations History of Present Illness Narrative: 44 yo woman with h/o bipolar disorder, BIBA due to c/o L leg pain that she has had for weeks. She was seen at 2 other hospitals in the past day for the same symptoms without any resolution. She denies any weakness or numbness and denies any falls or trauma. Allergies/Home Meds Allergies Allergy/AdvReac Type Severity Reaction Status Date / Time kenn Allergy Verified 06/21/20 03:06 shellfish derived Allergy Verified 06/21/20 03:06 Home Medications Medication Instructions Recorded Confirmed Last Taken Type methylprednisolone [Medrol (Wang)] See Rx Instructions .ROUTE 06/21/20 Unknown Rx .COMPLEX #21 ea PMH (from Triage) Patient Medical History PMH Reviewed/Updated as Needed: Yes PMH/PSH from Triage: Medical History (Updated 06/21/20 @ 03:07 by Rajwinder Lara) Delivery by emergency (Medical) O82 Hernia (Medical) K46.9 Hx of bipolar disorder (Medical) Z86.59 Hx of tonsillectomy (Medical) Z90.89 Surgical History (Updated 06/21/20 @ 03:07 by Rajwinder Lara) Hx of tonsillectomy (Surgical) Z90.89 Female History : No Hx Drug Resistant Infections Hx MRSA: (Methicillin-resistant Staphylococcus aureus): No Hx VRE (Vancomycin-resistant enterococci): No Hx C.Diff: No Hx CRKP: No Hx Other Resistant Infection?: No Isolation: Standard precautions Hx Recent Travel Out of the country within 10 days (where): No Hx Fever: No Hx Fever with a rash?: No Nurse screening for coronavirus: Recent Travel outside the No country (where) Social History Does patient have suicidal/homicidal thoughts or ideation?: No Are you in a relationship with/Does anyone hit you, yell/swear at you, steal from you?: No Substance Use Hx Alcohol Use: No Hx Substance Use: No Hx Sub stance Use Treatment: No Smoking Status: Current every day smoker Tobacco Use Years smoked:: 15 Hx Chewing Tobacco Use: No Vaccination History Hx/Date of Tetanus, Diphtheria Vaccination: Yes Hx/Date of Influenza Vaccination: Yes Hx/Date of Pneumococcal Vaccination: Yes PFSH Medical History (Updated 06/21/20 @ 03:07 by Rajwinder Lara) Delivery by emergency Hernia Hx of bipolar disorder Surgical History (Updated 06/21/20 @ 03:07 by Rajwinder Lara) Hx of tonsillectomy Social History (System 01/24/19 @ 09:46 by Bridget Sneed) Does the Patient have a Healthcare Proxy: No Does Patient have a DNR?: No Does Patient have a Living Will?: No Does the Patient have a MOLST?: No Advance Directives on File or in chart?: No Hx Recent Travel (where): No Smoking Status: Current every day smoker ROS Review of Systems Constitutional: Denies fever Respiratory: Denies SOB Cardiovascular: Denies chest pain Gastrointestinal: D enies abdominal pain Genitourinary-Female: Denies dysuria and frequency Musculoskeletal: Reports back pain and leg pain Skin/Breasts: Denies rash Neurologic: Reports paresthesias; Denies weakness and numbness Allergic/Immunologic: Denies rash Physical Exam General Physical Exam Narrative: wd woman, awake and alert, mild distress due to pain Limitations: no limitations General appearance: alert and in distress Head Head exam: Present atraumatic, normocephalic and normal inspection Eye Eye exam: Present normal apperance and EOMI; Absent scleral icterus and conjunctival injection ENT ENT exam: Present normal exam, normal orophraynx and mucous membranes moist Neck Neck exam: Present normal inspection and full ROM; Absent tenderness Respiratory Respiratory exam: Present normal lung sounds bilaterally; Absent respiratory distress Cardiovascular Cardiovascular Exam: Present regular rate and normal rhythm GI/Abdominal GI/Abdominal exam: Present Abd soft, bowel sounds present all quadrents; Absent tenderness Extremities Exam Extremities exam: Present normal inspection and full ROM; Absent tenderness and calf tenderness Back Exam Back exam: Present normal inspection, full ROM, tenderness (L lower lumbar extending to L gluteal area) and paraspinal tenderness; Absent rash noted Neurological Exam Neurological exam: Present alert and oriented X3; Absent motor sensory deficit Psychiatric Psychiatric exam: Present normal affect and normal mood Skin Skin exam: Present warm, dry, intact and normal color Vital Signs Vital Signs: Vital Signs 06/21/20 02:56 06/21/20 05:09 Temperature 98.7 F 98.4 F Pulse Rate 83 72 Respiratory Rate 16 16 Blood Pressure 179/108 152/82 O2 Sat by Pulse Oximetry 97 97 MDM (comprehensive) Medical Decision Making Free Text/Narative:: The patient was evaluated for L leg pain. The PE was significant for L lower lumbar tenderness. The patient has sciatica. She received treatment with Decadron and toradol in the ER and will be discharged with Medrol dose pack. Plan Plan Plan: d/c home Plan of care: Plan of care discussed with patient and or family, Patient encouraged to ask questionsabout plan and Patient agrees with plan of care Visit Medications Administered ED medications:: Medications Discontinued Medications Generic Name Dose Route Start Last Admin Trade Name Forrestq PRN Reason Stop Dose Admin Dexamethasone Sodium Phosphate 10 mg 06/21/20 03:03 06/21/20 03:16 Dexamethasone Sod Phos 10 Mg/Ml Sdv IM 06/21/20 03:04 10 mg 1T ONE Administration Ketorolac Tromethamine 60 mg 06/21/20 03:03 06/21/20 03:14 Ketorolac Tromethamine 60 Mg/2 Ml Sdv IM 06/21/20 03:04 60 mg 1T ONE Administration Other Medications: New: methylprednisolone (Medrol (Wang)) orally per package directions 21 ea 0RF Discharge Plan Admission/Discharge Dx Primary DC Diagnosis: Sciatica ED Provider: Kylah Cerna ED Status: Discharged Time Seen by Provider: 06/21/20 02:57 Triaged At: 06/21/20 02:50 Condition Condition: Improved Discharge Detail Disposition: Home, Self-Care Med Rec New Prescriptions: New methylprednisolone [Medrol (Wang)] 4 mg tablets,dose pack See Rx Instructions .ROUTE .COMPLEX Qty: 21 RF: 0 Medications Medication reconciliation performed by provider at discharge: Yes Follow Up Care/Instructions Diet/Activity/Wound Care..: Complete course of therapy with Medrol, primary care follow-up as needed *Discharge Patient* Discharge Orders: Discharge Order (Routine); Ordered 06/21/20 Ordered By: Kylah Cerna Discharge Date/Time: 06/21/20 05:20 Interventions Interventions: ED Discharge Instructions Last Done: 06/21/20 05:21 Report Signers: <Electronically signed by Kylah Cerna MD> Kylah Cerna MD 06/21/20 0732 Kylah Cerna MD SIGNATURE DA Report Cosigners: D: ANNELISE 06/21/20 0303 T: ANNELISE 06/21/20 030 CC: No Family PHYS Provided Name Value Range Interpretation Code Description Data Tiff rce(s) Supporting Document(s) ID Date Data Source [id number] 06/21/2020 01:56:00 AM EDT [facility] 1 Medication Reconciliation Report [facility] Emergency Department [address] [place] [address] Phone #: ext- [phone] 06/21/2020 01:54 Patient: ARNOLDO RAMIREZ Sex: F : 1975 Age: 44yWeight: (not available)Height/Length: (not available)BMI: (not available)ALLERGIES: No Known Drug AllergyThe patient's Home Medications are listed below:NONE.The source(s) of the original Home Medication information:Not obtained.The following Medications were given to the patient in the Emergency Department:None.The following Medications were prescribed to the patient:None. Name Value Range Interpretation Code Description Data Tiff rce(s) Supporting Document(s) ID Date Data Source [id number] 06/21/2020 01:56:00 AM EDT [facility] 1 Medication Administration Record [facility] Emergency Department [address] [place] [address] Phone #: ext [phone] 06/21/2020 01:54 Patient: ARNOLDO RAMIREZ Sex: F : 1975 Age: 44yWeight: (not available)Height/Length: (not available)BMI: (not available)ALLERGIES: No Known Drug AllergyDate/Time Medication Administered Medication Ordered Name Value Range Interpretation Code Description Data Tiff rce(s) Supporting Document(s) ID Date Data Source [id number] 06/21/2020 01:56:00 AM EDT [facility] 1 Clinical Report - Nurses [facility] Emergency Department [address] [place] [address] Phone #: ext [phone] 06/21/2020 01:54 Patient: ARNOLDO RAMIREZ Sex: F : 1975 Age: 44yTRIAGE Arrived by private vehicle. Historian: patient. Chief Complaint: (LEFT LEG PAIN). No injury occurred. Onset. (3 weeks ago). ( Patient reports pain down her whole left leg from hip to foot for past 3 weeks. She was seen at [facility] prior to coming to this facility for same complaint. Patient denies injury.). --02:02 06/21/20 Roseanne Ricardo 01:57 06/21/20. ( Unable to complete triage, patient left AMA.). --02:02 06/21/20 Roseanne Ricardo. Medications None. --01:57 06/21/20 Roseanne Ricardo. Allergies No Known Drug Allergy. --01:57 06/21/20 Roseanne Ricardo. PROBLEMS: Vaginitis. Dental Pain. Bowel Obstruction. Abdominal Pain. Allergic Reaction. GI Disease. Hernia. Bipolar Disorder. Myofascial Strain. Hyperglycemia. Hiatal Hernia. Hypertension. --01:58 06/21/20 Roseanne Ricardo.PHYSICAL [id number] 06/21/20.GENERAL / NEURO / PSYCH: ( Unable to complete assessment, patient left AMA). --02:03 06/21/20Roseanne Ricardo.DISPOSITION / DISCHARGE The patient left the Emergency Department before triage, without being seen by a physician and 2 Clinical Report - Nurses [facility] Emergency Department [address] [place] [address] Phone #: ext- [phone] 06/21/2020 01:54 Patient: ARNOLDO RAMIREZ Sex: F : 1975 Age: 44y completion of treatment and against medical advice; patient was unaccompanied. The patient appears to be alert, oriented x4, coherent, in no acute distress, uncooperative, belligerent and using abusive language. Notified the ED physician of patient departure. Prior to leaving, the patient was advised to stay for completion of treatment and return if needed. The patient left the Emergency Department ambulatory. ( Patient refusing to answer triage questions and demanding pain medications immediately. Patient educated on triage and assessment process. Patient ripped blood pressure cuff off and began swearing at nurses in room and yelling that she wanted to go somewhere else. Patient briskly walked to exit in no acute distress. aware.). --02:02 06/21/20 Roseanne Ricardo Departure time: 02:02 06/21/2020. --02:02 06/21/20 Roseanne Ricardo.Locked/Released at 06/21/2020 02:03 by Roseanne Ricardo Name Value Range Interpretation Code Description Data Tiff rce(s) Supporting Document(s) ID Date Data Source [id number] 05/24/2020 12:00:00 PM EDT [facility] (Soren [facility]) Name Value Range Interpretation Code Description Data Tiff rce(s) Supporting Document(s) TP Reflex HPV ASCUS Laboratory test result [facility] (Soren Bailey [facility]) SPECIMEN PART------ A. Cervical, Endocervical, ThinPrep Pap (Filter Press Supervisor) CYTOLOGY HX-------- Date of Last Menstrual Period: 05/12/20 Other Information:Previous Normal Pap: 01/22/18 FINAL DIAGNOSIS---- INTERPRETATION: Negative for Intraepithelial Lesion or Malignancy. SPECIMEN ADEQUACY:Satisfactory for evaluation. Endocervical/transformation zone component present. TP Reflex HPV ASCUS Laboratory test result [facility] (Soren Bailey DETACHER) ID Date Data Source [id number] 05/11/2020 12:46:00 AM EST [facility] 1 OrderSheet [facility] Emergency Department [address] [place] [address] Phone #: ext- [phone] 05/11/2020 00:45 Patient: ARNOLDO RAMIREZ Sex: F : 1975 Age: 44yWEIGHT:90.7 kg (S) HEIGHT:66 inches (S) BMI:32.3ALLERGIES: No Known Drug AllergyCHIEF COMPLAINT: itchingDIAGNOSIS: Vaginitis, Immune hypersensitivity reaction, Hypertensive disorderLAB ORDERSOrder Description Priority Entered Acknowledged InitialedDIAGNOSTIC STUDY ORDERSOrder Description Priority Entered Acknowledged InitialedMEDICATION/IV/DRIP/FLUID ORDERSOrder Description Priority Entered Acknowledged InitialedBenadryl IM 50 mg 01:06 05/11/2020 01:10 Jaiden Mathew Riccardo Rachel R.N. M.D.;predniSONE PO 40 01:06 05/11/2020 01:11 [place],mg Leah Campbell R.N., M.D.;Pepcid PO 20 mg 01:06 05/11/2020 01:11 [place],(NOW x1) Leah Campbell R.N., M.D.;GENERAL ORDERSOrder Description Priority Entered Acknowledged Initialed[Electronically signed by Erin Kruse R.N. (02:19 05/11/2020)][Electronically signed by Leah Campbell M.D. (06:50 05/11/2020)][Electronically locked by Erin Krues R.N. (02:19 05/11/2020)] Name Value Range Interpretation Code Description Data Tiff rce(s) Supporting Document(s) ID Date Data Source [id number] 05/11/2020 12:46:00 AM EST [facility] 1 Medication Reconciliation Report [facility] Emergency Department [address] [place] [address] Phone #: [phone] 05/11/2020 00:45 Patient: ARNOLDO RAMIREZ Sex: F : 1975 Age: 44yWeight: 90.7 kgHeight/Length: 66 in.BMI: 32.3ALLERGIES: No Known Drug AllergyThe patient's Home Medications are listed below:NONE.The source(s) of the original Home Medication information:Not obtained.The following Medications were given to the patient in the Emergency Department:Benadryl [IM] IM 50 mg, administered: :1Prednisone [PO] PO 40 mg, administered: 1Pepcid [PO] PO 20 mg, administered: :05/11/2020The following Medications were prescribed to the patient:Monistat 7 2 % vaginal cream Apply 1 applicatorful at bedtime for 7 days -- Dispense 1 box. Refills: 0.Substitution permitted.[facility] # - [address] [place] [address]. .Benadryl Allergy 25 mg tablet Take 1 tablet four times a day for 5 days -- Dispense 20 tablet. Refills: 1.Substitution permitted.[facility] #57 - [address] [place] [address]. .prednisone 20 mg tablet Take 2 tablet once a day for 5 days -- Dispense 10 tablet. Refills: 0.Substitution permitted.[facility] [address] - [address] [place], [place] [phone]. FaxNumber: [phone].Pepcid 20 mg tablet Take 1 tablet twice a day for 5 days -- Dispense 10 tablet. Refills: 0. Substitution 2 Medication Reconciliation Report [facility] Emergency Department [address] [place] [address] Phone #: ext- [phone] 05/11/2020 00:45 Patient: ARNOLDO RAMIREZ Sex: F : 1975 Age: 44ypermitted.Pharmacy - [facility] #[address] - [address] [place], [place] [phone]. . -- Leah Campbell M.D. Name Value Range Interpretation Code Description Data Tiff rce(s) Supporting Document(s) ID Date Data Source [id number] 05/11/2020 12:46:00 AM EST [facility] 1 Medication Administration Record [facility] Emergency Department [address] [place] [address] Phone #: ext- [phone] 05/11/2020 00:45 Patient: ARNOLDO RAMIREZ Sex: F : 1975 Age: 44yWeight: 90.7 kgHeight/Length: 66 inBMI: 32.3ALLERGIES: No Known Drug Allergy Date/Time Medication Administered Medication OrderedGiven BENADRYL [IM] (DIPHENHYDRAMINE Benadryl IM 50 mg01:10 05/11/2020 HCL)Litzy Mathew RYaneliNYaneli Dose: 50 mg IMGiven PREDNISONE [PO] predniSONE PO 40 mg01:11 05/11/2020 Dose: 40 mg Tablets Litzy Escobedo, RYaneliNYaneliGiven PEPCID [PO] (FAMOTIDINE) Pepcid PO 20 mg (NOW x1)01:11 05/11/2020 Dose: 20 mg Tablets Litzy Escobedo, R.NYaneli Name Value Range Interpretation Code Description Data Tiff rce(s) Supporting Document(s) ID Date Data Source [id number] 05/11/2020 12:46:00 AM EST [facility] 1 General Instructions [facility] Emergency Department [address] [place] [address] Phone #: ext- [phone] 05/11/2020 00:45 Patient: ARNOLDO RAMIREZ Sex: F : 1975 Age: 44yLocalized allergic reaction with skin rash secondary to soap (vaginal area).Acute moderate boone vaginitisEssential hypertension.INSTRUCTIONS Do not smoke. No alcohol. (PLEASE FOLLOW UP WITH YOUR FAMILY MD FOR TREATMENT OF YOUR HYPERTENSION IF IT PERSISTS, SINCE IT WAS HIGH LAST TIME YOU WERE HERE IN ).Warnings: Further evaluation is necessary. It is very important to follow up with a healthcare provider.GENERAL WARNINGS: Return or contact your physician immediately if your condition worsens orchanges unexpectedly, if not improving as expected, or if other problems arise. Specifically return if pain,vomiting, bleeding, breathing difficulty or fever greater than 102 degrees F and not controlled byacetaminophen or ibuprofen.Your Current Medications: .No home medication.Prescription Medications:Monistat 7 2 % vaginal cream Apply 1 applicatorful at bedtime for 7 days -- Dispense 1 box. Refills: 0.Substitution permitted.[facility] #[facility] - [address] [place], [place] [phone]. .Benadryl Allergy 25 mg tablet Take 1 tablet four times a day for 5 days -- Dispense 20 tablet. Refills: 1.Substitution permitted.[facility] #42 - [address] [place], [place] [id number]. .prednisone 20 mg tablet Take 2 tablet once a day for 5 days -- Dispense 10 tablet. Refills: 0.Substitution permitted.[facility] #66 - [address] [place], [place] [id number]. .Pepcid 20 mg tablet Take 1 tablet twice a day for 5 days -- Dispense 10 tablet. Refills: 0. Substitutionpermitted.Pharmacy - [facility] #17 - [address] [place], [place] [id number]. Phone: 2 General Instructions [facility] Emergency Department [address] [place] [address] Phone #: ext- [phone] 05/11/2020 00:45 [id number] Sex: F : 1975 Age: 44y . Follow-up: Return to the emergency department as needed. Follow up with your healthcare provider in five days even if well. Call for an appointment. Reason for referral: evaluation and treatment. Summary of care provided to patient via paper. Understanding of the discharge instructions verbalized by patient. Expected course of illness, discharge instructions, activity level, diet, prescriptions x4, follow-up appointment and risks and benefits of treatment reviewed with patient and understanding verbalized. Agrees to plan of care. ADDITIONAL INFORMATIONYeast Infection (Boone Vaginal Infection)You have a Boone vaginal infection. This is also known as a yeast infection. It is most often causedby a type of yeast (fungus) called Boone. Boone are normally found in the vagina. But if theyincrease in number, this can lead to infection and cause symptoms.Symptoms of a yeast infection can include: Clumpy or thin, white discharge, which may look like cottage cheese Itching or burning Burning with urinationCertain factors can make a yeast infection more likely. These can include: Taking certain medicines, such as antibiotics or control pills 3 General Instructions [facility] Emergency Department [address] [place] [address] Phone #: ext- [phone] 05/11/2020 00:45 [facility]: [id number] Sex: F : 1975 Age: 44y Diabetes Weak immune systemA yeast infection is most often treated with antifungal medicine. This may be given as a vaginal creamor pills you take by mouth. Treatment may last for about 1 to 7 days. Women with severe or recurrentinfections may need longer courses of treatment.Home care If you're prescribed medicine, be sure to use it as directed. Finish all of the medicine, even if your symptoms go away. Note: Don't try to treat yourself using dvit-eho-uevtdax products without talking to your provider first. He or she will let you know if this is a good option for you. Ask your provider what steps you can take to help reduce your risk of having a yeast infection in the future.Follow-up careFollow up with your healthcare provider, or as directed.When to seek medical adviceCall your healthcare provider right away if: You have a fever of 100.4F (38C) or higher, or as directed by your provider. Your symptoms worsen, or they don't go away within a few days of starting treatment. You have new pain in the lower belly or pelvic region. You have side effects that bother you or a reaction to the cream or pills you're prescribed. You or any partners you have sex with have new symptoms, such as a rash, joint pain, or sores. 2603-[address] [employer] [place] [address], [place] [address]. All rights reserved. This information is not intended as asubstitute for professional medical care. Always follow your healthcare professional's instructions.Established High Blood Pressure 4 General Instructions [facility] Emergency Department [address] [place] [address] Phone #: ext- [phone] 05/11/2020 00:45 Patient: ARNOLDO RAMIREZ [facility]#: [id number] Sex: F : 1975 Age: 44yHigh blood pressure (hypertension) is a long-term (chronic) disease. Often healthcare providers don'tknow what causes it. But it can be caused by certain health conditions and medicines.If you have high blood pressure, you may not have any symptoms. If you do have symptoms, theymay include: Headache Dizziness Changes in your vision Chest pain Shortness of breathBut even without symptoms, high blood pressure that's not treated raises your risk for heart attack,heart failure, kidney disease, and stroke. High blood pressure is a serious health risk and shouldn't beignored.Blood pressure measurements are given as 2 numbers. Systolic blood pressure is the upper number.This is the pressure when the heart contracts. Diastolic blood pressure is the lower number. This isthe pressure when the heart relaxes between beats. You will see your blood pressure readingswritten together. For example, a person with a systolic pressure of 118 and a diastolic pressure of 78will have 118/78 written in the medical record.Blood pressure is classified as normal, raised (elevated) or stage 1 or stage 2 high blood pressure: Normal blood pressure. Systolic of le ss than 120 and diastolic of less than 80 (120/80). Elevated blood pressure. Systolic of 120 to 129 and diastolic less than 80. Stage 1 high blood pressure. Systolic is 130 to 139 or diastolic between 80 to 89. Stage 2 high blood pressure. Systolic is 140 or higher or the diastolic is 90 or higher.Home careIf you have high blood pressure, follow these home care guidelines to help lower your blood pressure.If you are taking medicines for high blood pressure, these methods may reduce or end your need for 5 General Instructions [facility] Emergency Department [address] [place] [address] Phone #: ext- [phone] 05/11/2020 00:45 Patient: ARNOLDO RAMIREZ [facility]#: [id number] Sex: F : 1975 Age: 44ymedicines in the future. Start a weight-loss program if you are overweight. Cut back on how much salt you get in your diet. Here's how to do this: o Don't eat foods that have a lot of salt. These include olives, pickles, smoked meats, and salted potato chips. o Don't add salt to your food at the table. o Use only small amounts of salt when cooking. Start an exercise program. Talk with your healthcare provider about the type of exercise program that would be best for you. It doesn't have to be hard. Even brisk walking for 20 minutes 3 times a week is a good form of exercise. Don't take medicines that stimulate the heart. This includes many rgci-yzh-gvnnzts cold and sinus decongestant pills and sprays, as well as diet pills. Check the warnings about high blood pressure on the label. Before buying any meyz-edf-gsxwztb medicines or supplements, always ask the pharmacist about the product's possible interaction with your high blood pressure and your high blood pressure medicines. Stimulants such as amphetamine or cocaine could be deadly for someone with high blood pressure. Never take these. Limit how much caffeine you get in your diet. Switch to caffeine-free products. Stop smoking. If you are a long-time smoker, this can be hard. Talk with your healthcare provider about medicines and nicotine replacement options to help you. Also join a stop-smoking program . This makes it more likely that you will quit for good. Learn how to handle stress. This is an important part of any program to lower blood pressure. Learn about relaxation methods such as meditation, yoga, or biofeedback. If your provider prescribed medicines, take them exactly as directed. Missing doses may cause your blood pressure get out of control. If you miss a dose, check with your healthcare provider or pharmacist about what to do. Think about buying an automatic blood pressure machine to check your blood pressure at home. Ask your provider for a recommendation. You can get one of these at most pharmacies.Using a home blood pressure monitorThe [employer] Heart Association advises the following guidelines for home blood pressure monitoring: Don't smoke or drink coffee for 30 minutes before taking your blood pressure. 6 General Instructions [facility] Emergency Department [address] [place] [address] Phone #: ext- [phone] 05/11/2020 00:45 Patient: ARNOLDO RAMIREZ Sex: F : 1975 Age: 44y Go to the bathroom before the test. Relax for 5 minutes before taking the measurement. Sit with your back supported (don't sit on a couch or soft chair). Keep your feet on the floor uncrossed. Place your arm on a solid flat surface (such as a table) with the upper part of the arm at heart leve l. Place the middle of the cuff directly above the bend of the elbow. Check the monitor's instruction manual for an illustration. Take multiple readings. When you measure, take 2 to 3 readings one minute apart and record all of the results. Take your blood pressure at the same time every day, or as your healthcare provider advises. Record the date, time, and blood pressure reading. Take the record with you to your next healthcare appointment. If your blood pressure monitor has a built-in memory, just take the monitor with you to your next appointment. Call your provider if you have several high readings. Don't be frightened by one high blood pressure reading. But if you get a few high readings, check in with your healthcare provider.Follow-up careYou will need to see your healthcare provider regularly. This is to check your blood pressure and tomake changes to your medicines. Make a follow-up appointment as directed. Bring the record of yourhome blood pressure readings to the appointment.Call [id number] you have any of these: Blood pressure of 180/120 or higher Chest pain or shortness of breath Weakness of an arm or leg or one side of the face Problems speaking or seeingWhen to get medical adviceCall your healthcare provider right away if any of these occur: Severe headache Throbbing or rushing sound in the ears 7 General Instructions [facility] Emergency Department [address] [place] [address] Phone #: [phone]- [phone] 05/11/2020 00:45 Patient: ARNOLDO RAMIREZ Sex: F : 1975 Age: 44y Nosebleed Sudden severe pain in your belly (abdomen) Extreme drowsiness, confusion, or fainting Dizziness or spinning feeling (vertigo) [id number] [employer] [place] [address]. All rights reserved. This information is not intended as asubstitute for professional medical care. Always follow your healthcare professional's instructions. You have been given the following additional information: Yeast Infection, Vaginal (Boone Vaginal Infection) Hypertension, Established(Electronically signed by Leah Campbell M.D. 05/11/2020 06:50) Name Value Range Interpretation Code Description Data Tiff rce(s) Supporting Document(s) ID Date Data Source [id number] 05/11/2020 12:46:00 AM EST [facility] 1 Clinical Report - Nurses [facility] Emergency Department [address] [place] [address] Phone #: ext- [phone] 05/11/2020 00:45 Patient: ARNOLDO RAMIREZ Sex: F : 1975 Age: 44yTRIAGEArrived by EMS. Historian: patient.Acuity: LEVEL 4.Chief Complaint: VAGINAL ITCHING.Alert. No acute distress.Onset. (3 days ago). ( PT says for the past 3 days she has had vaginal itching and burning. She reportsusing a new soap at her hotel but is unsure if it is related. She also reports having a boil in her rectal area.She does not believe she has been exposed to any STDs and denies abnormal discharge. [facility] [place] [facility] and left before being seen. She is unsure if she is and also reports having heavy vaginal bleeding. 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 (left before being seen at [facility]).SEPSIS SCREEN: SIRS SCREEN NEGATIVE: heart rate greater than 90. SEPSIS SCREEN NEGATIVE.No suspected or confirmed signs of infection present.ELLEN COMA SCORE: 15- eyes open- spontaneous (4); best verbal response- oriented (5); bestmotor response- obeys commands (6). --00:57 05/11/20 Litzy Mathew R.N.00:46 05/11/20. BP: 152/104. MAP: 120. HR: 96. RR: 17. O2 saturation: 100%. Temp: 98.1 F. Pain levelnow: 0/10. --00:57 05/11/20 Litzy Mathew R.N.Weight: 90.7 kg stated. Height/Length: 66 inches Per Patient. BMI: 32.3. --00:54 05/11/20 Litzy Mathew R.N.MedicationsNone. --00:55 05/11/20 Litzy Mathew R.N.AllergiesNo Known Drug Allergy. --00:55 05/11/20 Litzy Mathew R.N.PROBLEMS:Bipolar Disorder. --00:57 05/11/20 Litzy Mathew R.N.HistoryPAST MEDICAL HX: Immunizations: up-to-date. Last normal menstrual period- Pt says she may be but has been bleeding all week long. 2 Clinical Report - Nurses [facility] Emergency Department [address] [place] [address] Phone #: ext- [phone] 05/11/2020 00:45 [id number] Sex: F : 1975 Age: 44y SOCIAL HX: Light tobacco smoker (cigarette)- less than 1/2 a pack per day. No alcohol use or drug use. She was offered HIV testing but declined and hepatitis C testing but declined. She has not traveled outside the [place] Infectious disease exposure: The patient was not exposed to C-diff, MRSA, VRE, CRE or Coronavirus. SELF HARM ASSESSMENT: Self harm assessment was performed. The patient answered "no" to the question(s) "Have you recently felt down, depressed, or hopeless?", "Do you have thoughts of harming or killing yourself?", "Do you have a plan for harming or killing yourself?", "Have you recently had thoughts about harming or killing others?", "Do you have any dangerous items in your possession?", "Have you noticed less interest or pleasure in doing things?", "Are you here because you tried to hurt yourself?" and "Have you ever tried to hurt yourself before today?". ABUSE ASSESSMENT: No report of abuse. NUTRITIONAL RISK ASSESSMENT: The nutritional risk assessment revealed no deficiencies. FUNCTIONAL ASSESSMENT: Functional assessment: no impairments noted. LEARNING NEEDS ASSESSMENT: The learning needs assessment revealed no barriers. FALL RISK ASSESSMENT: Fall risk assessment completed. No risk factors identified. SKIN INTEGRITY ASSESSMENT: Skin integrity risk assessment completed. No skin integrity risk identified. --00:57 05/11/20 Litzy Mathew R.N. Interventions Identification band on patient. To treatment room. --00:57 05/11/20 Litzy Mathew R.N.PHYSICAL ASSESSMENTTo room via stretcher.GENERAL / NEURO / PSYCH: Alert. Oriented X 4. Appears in no acute distress.RESPIRATORY: Respirations not labored. Breath soun ds within normal limits.CVS: Capillary refill less than 2 seconds.GI / : Abdomen soft and nontender. Bowel sounds within normal limits. ( redness to vagina anditching).SKIN: Skin is warm and dry. --01:05 05/11/20 Mathew, Litzy, R.N.NURSING PROGRESS NOTESPatient gowned. Reassurance given. Two patient identifiers checked. Call light placed in reach. Siderails up x 2. Patient ready for evaluation- ED physician notified. --00:57 05/11/20 Litzy Mathew R.N. 01:10 05/11/2020 Benadryl (diphenhydrAMINE HCl) IM 50 mg given. Given in the left deltoid. Allergies verified and confirmed 5 rights. Information reviewed with patient including reason for taking this medication and sedative warning. Verbalizes understanding. --01:10 05/11/20 Litzy Mathew R.N. 3 Clinical Report - Nurses [facility] Emergency Department [address] [place] [address] Phone #: ext- [phone] 05/11/2020 00:45 Patient: ARNOLDO RAMIREZ [facility]#: [id number] Sex: F : 1975 Age: 44y 01:11 05/11/2020 Prednisone PO Tablets 40 mg given. Allergies verified and confirmed 5 rights. Information reviewed with patient including reason for taking this medication. Verbalizes understanding. --01:11 05/11/20 Litzy Mathew R.N. 01:11 05/11/2020 Pepcid (Famotidine) PO Tablets 20 mg given. Allergies verified and confirmed 5 rights. Information reviewed with patient including reason for taking this medication. Verbalizes understanding. --01:11 05/11/20 Litzy Mathew R.N.DISPOSITION / DISCHARGE ( Awaiting for medical cab to transport pt back home at this time.). --01:33 05/11/20 Erin Kruse R.N. Condition at departure: stable. No learning barriers present. Discharge instructions provided and reviewed with the patient. Reviewed warnings. Reviewed medication(s) side effects, precautions, dosing and course information. Prescription(s) given to the patient and sent electronically to pharmacy. Medication(s) for home use given to the patient per protocol. Treatments reviewed. Reviewed referrals. Patient verbalized understanding. Written instructions provided in [place]alan. The patient was discharged home and accomp anied by taxi. She left ambulatory and via private vehicle. 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 --01:47 05/11/20 Erin Kruse R.N. 01:42 05/11/20. BP: 170/100 taken on the left arm, manually, while sitting. MAP: 123. HR: 98. RR: 17. O2 saturation: 99% on room air. Temp: 98.1 F (oral). Pain level now: 0/10. Additional comments: MD Campbell made aware and okay with plan to d/c. --01:47 05/11/20 Erin Kruse R.N.Locked/Released at 05/11/2020 02:19 by Erin Kruse R.N. Name Value Range Interpretation Code Description Data Tiff rce(s) Supporting Document(s) ID Date Data Source [id number] 0001 05/11/2020 12:46:00 AM [facility] 1 Clinical Report - Physicians/Mid Levels [facility] Emergency Department [address] [place] [address] Phone #: ext- [phone] 05/11/2020 00:45 Patient: ARNOLDO RAMIREZ Sex: F : 1975 Age: 44y Time Seen: 01:02 05/11/2020; initial patient contact. Arrived- By ambulance. Historian- patient. Disposition decision: 01:19 05/11/2020.HISTORY OF PRESENT ILLNESS Chief Complaint: ITCHING. vaginal itching. A possible cause has been identified (soap from hotel in [place]). This started 3 days ago and is still present. It was gradual in onset and has been constant. The patient has had a skin rash (vaginal) consisting of "redness" located on the genitalia. She has had itching (vaginal). She has had swelling (vaginal). Similar symptoms previously. Patient has had similar symptoms occasionally. Recent medical care: Not recently seen/assessed.REVIEW OF SYSTEMSNo eye problems, sore throat, cough, sputum production or fever. No chills, joint pain, enlarged lymphnodes, headache or weakness. No numbness, chest pain, palpitations, abdominal pain or vomiting. Noblack stools, urinary frequency, pain with urination, diarrhea or bloody stools. All other systems reviewedand are negative.PAST HISTORYSee nurses notes. Problems: Hiatal Hernia. Bowel Obstruction. Bipolar Disorder. Additional Surgeries: Abdominal Hernia Repair. Adenoidectomy. Bowel obstruction. C- Section. Hernia Repair. Tonsillectomy. Medications: None. Allergies: No Known Drug Allergy. 2 Clinical Report - Physicians/Mid [facility] Emergency Department [address] [place] [address] Phone #: ext- [phone] 05/11/2020 00:45 Patient: ARNOLDO RAMIREZ Sex: F : 1975 Age: 44ySOCIAL HISTORYLight tobacco smoker- less than 1/2 a pack per day. No alcohol use or drug use.ADDITIONAL NOTESThe nursing notes have been reviewed with agreement regarding the chief complaint, HPI, ROS, PMH andpatient medications and allergies.PHYSICAL EXAMVital Signs: 05/11/2020 00:46 BP: 152/104. MAP: 120. HR: 96. RR: 17. O2 saturation: 100%. Temp: 98.1F. Pain level now: 0/10. Have been reviewed. Oxygen saturation normal.Appearance: Alert. Oriented X3. No acute distress.Head and Neck: Normal external inspection.Eyes: Pupils equal, round and reactive to light.ENT: Pharynx normal. Voice normal.Neck: Neck supple.: (mild diffuse swelling and redness of major/minor labia, no discharge seen, c/w local allergic reactionor vaginitis, no lesions).Skin: Skin warm and dry. Normal skin turgor.Extremities: Normal external inspection. Extremities nontender.Skin: Normal skin color. No urticaria.Neuro: Oriented X 3. No motor deficit.PROGRESS AND PROCEDURESCourse of Care: 01:16 05/11/20. pt has localized allergic reaction to vaginal area (major /minor labia) c/wallergic vaginitis or candidiasis vaginitis; will treat accordingly; pt understands d/c instructions and agrees 01:48 05/11/20. pt has known Hx of HTN, was here in and had high BP upon d/c; pt didn't f/u w [facility]; pt is advised to f/u w [facility] for Tx of her HTN. Patient counseled in person regarding the patient's stable condition, diagnosis and need for follow-up. Patient agrees with plan of care. Disposition: Condition: good and stable. Discharge decision based on the following: patient's condition is stable; patient's condition is improved; patient is ambulatory; patient is active; patient drinking fluids; patient's pain is controlled; patient's exam is improved; improving condition on repeat evaluation; social support is good; transportation is available; follow-up is available; clinical impression is consistent with outpatient treatment.CLINICAL IMPRESSION Localized allergic reaction with skin rash secondary to soap (vaginal area). Acute moderate boone vaginitis Essential hypertension. 3 Clinical Report - Physicians/Mid Levels [facility] Emergency Department [address] [place] [address] Phone #: ext- [phone] 05/11/2020 00:45 Patient: ARNOLDO RAMIREZ Sex: F : 1975 Age: 44yINSTRUCTIONS Do not smoke. No alcohol. (PLEASE FOLLOW UP WITH YOUR FAMILY MD FOR TREATMENT OF YOUR HYPERTENSION IF IT PERSISTS, SINCE IT WAS HIGH LAST TIME YOU WERE HERE IN ).Warnings: Further evaluation is necessary. It is very important to follow up with a healthcare provider.GENERAL WARNINGS: Return or contact your physician immediately if your condition worsens orchanges unexpectedly, if not improving as expected, or if other problems arise. Specifically return if pain,vomiting, bleeding, breathing difficulty or fever greater than 102 degrees F and not controlled byacetaminophen or ibuprofen.Your Current Medications: .No home medication.Prescription Medications:Monistat 7 2 % vaginal cream Apply 1 applicatorful at bedtime for 7 days -- Dispense 1 box. Refills: 0.Substitution permitted.[facility] #87 - [address] [place] [address]. FaxNumber: .Benadryl Allergy 25 mg tablet Take 1 tablet four times a day for 5 days -- Dispense 20 tablet. Refills: 1.Substitution permitted.[facility] #[facility] - [address] [place] [address]. .prednisone 20 mg tablet Take 2 tablet once a day for 5 days -- Dispense 10 tablet. Refills: 0.Substitution permitted.[facility] #26 - [address] [place] [address]. .Pepcid 20 mg tablet Take 1 tablet twice a day for 5 days -- Dispense 10 tablet. Refills: 0. Substitutionpermitted.[facility] #[address] [place] [address]. .Follow-up:Return to the emergency department as needed. Follow up with your healthcare provider in five dayseven if well. Call for an appointment. Reason for referral: evaluation and treatment. Summary of careprovided to patient via paper. 4 Clinical Report - Physicians/Mid Levels [facility] Emergency Department [address] [place] [address] Phone #: ext- [phone] 05/11/2020 00:45 Patient: ARNOLDO RAMIREZ [facility]#: [id number] Sex: F : 1975 Age: 44y Understanding of the discharge instructions verbalized by patient. Expected course of illness, discharge instructions, activity level, diet, prescriptions x4, follow-up appointment and risks and benefits of treatment reviewed with patient and understanding verbalized. Agrees to plan of care.(Electronically signed by eLah Campbell M.D. 05/11/2020 06:50) Name Value Range Interpretation Code Description Data Tiff rce(s) Supporting Document(s) ID Date Data Source [id number] 02/08/2020 12:53:00 AM EST [facility] Name Value Range Interpretation Code Description Data Tiff rce(s) Supporting Document(s) SARS coronavirus 2 RNA [Presence] in Res piratory specimen by MELY with probe detection [facility] This lab was ordered by [facility] a nd reported by [facility]. ID Date Data Source [id number] 02/07/2020 09:06:00 AM EST [facility] Name Value Range Interpretation Code Description Data Tiff rce(s) Supporting Document(s) SARS coronavirus 2 RNA [Presence] in Res piratory specimen by MELY with probe detection [facility] This lab was ordered by [facility] a nd reported by [facility]. Procedure Social History Code Duration Value Status Description Data Source(s ) Smoking 10/26/2020 12:00:00 AM EDT Current Smoker completed Curre nt Smoker eCW1 ([facility]) Smoking 10/26/2020 12:00:00 AM EDT Current Smoker completed Curre nt Smoker eCW1 ([facility]) Smoking 10/26/2020 12:00:00 AM EDT Current Smoker completed Curre nt Smoker eCW1 ([facility]) Smoking 10/26/2020 12:00:00 AM EDT Current Smoker completed Curre nt Smoker eCW1 ([facility]) Smoking 10/26/2020 12:00:00 AM EDT Current Smoker completed Curre nt Smoker eCW1 ([facility]) Smoking 10/12/2020 12:00:00 AM EDT Current Smoker completed Curre nt Smoker eCW1 ([facility]) Smoking 10/12/2020 12:00:00 AM EDT Current Smoker completed Curre nt Smoker eCW1 ([facility]) Smoking 08/26/2020 12:00:00 AM EDT Current Smoker completed Curre nt Smoker eCW1 ([facility]) Smoking 08/26/2020 12:00:00 AM EDT Current Smoker completed Curre nt Smoker eCW1 ([facility]) Smoking 08/26/2020 12:00:00 AM EDT Current Smoker completed Curre nt Smoker eCW1 ([facility]) Smoking 08/26/2020 12:00:00 AM EDT Current Smoker completed Curre nt Smoker eCW1 ([facility]) Smoking 08/26/2020 12:00:00 AM EDT Current Smoker completed Curre nt Smoker eCW1 ([facility]) Smoking 08/26/2020 12:00:00 AM EDT Current Smoker completed Curre nt Smoker eCW1 ([facility]) Smoking 08/26/2020 12:00:00 AM EDT Current Smoker completed Curre nt Smoker eCW1 ([facility]) Smoking 08/23/2020 12:00:00 AM EDT Current Smoker completed Curre nt Smoker eCW1 ([facility]) Smoking 08/23/2020 12:00:00 AM EDT Current Smoker completed Curre nt Smoker eCW1 ([facility]) Smoking 08/23/2020 12:00:00 AM EDT Current Smoker completed Curre nt Smoker eCW1 ([facility]) Smoking 08/19/2020 12:00:00 AM EDT Current Smoker completed Curre nt Smoker eCW1 ([facility]) Smoking 08/10/2020 12:00:00 AM EDT Current Smoker completed Curre nt Smoker eCW1 ([facility]) Smoking 08/10/2020 12:00:00 AM EDT Current Smoker completed Curre nt Smoker eCW1 ([facility]) Smoking 08/10/2020 12:00:00 AM EDT Current Smoker completed Curre nt Smoker eCW1 ([facility]) Smoking 07/29/2020 12:00:00 AM EDT Current Smoker completed Curre nt Smoker eCW1 ([facility]) Smoking 07/29/2020 12:00:00 AM EDT Current Smoker completed Curre nt Smoker eCW1 ([facility]) Smoking 07/29/2020 12:00:00 AM EDT Current Smoker completed Curre nt Smoker eCW1 ([facility]) Smoking 07/29/2020 12:00:00 AM EDT Current Smoker completed Curre nt Smoker eCW1 ([facility]) 06/21/2020 03:05:29 AM EDT No completed No [facility] 06/21/2020 03:05:29 AM EDT No completed No [facility] 06/21/2020 03:05:29 AM EDT Current every day smoker co mpleted Current every day smoker [facility] 06/21/2020 03:05:29 AM EDT No completed No [facility] 06/21/2020 03:05:29 AM EDT No completed No [facility] 06/21/2020 03:05:29 AM EDT Current every day smoker co mpleted Current every day smoker [facility] Smoking 06/21/2020 03:05:00 AM EDT Current every day smoker co mpleted Current every day smoker [facility] Smoking 06/21/2020 03:05:00 AM EDT Current every day smoker co mpleted Current every day smoker [facility] Vital Signs ID Date Data Source UNK Name Value Range Interpretation Code Description Data Source(s) Body weight 190 [lb_av] 190 [lb_av] W1 ([facility]) Body height 62 [in_i] 62 [in_i] W1 ([facility]) Body mass index (BMI) [Ratio] 34.75 kg/m2 34.75 kg/m2 [facility] ([facility]) Systolic blood pressure 140 mm[Hg] 140 mm[Hg] e CW1 ([facility]) Diastolic blood pressure 82 mm[Hg] 82 mm[Hg] W1 ([facility]) Body weight 189.2 [lb_av] 189.2 [lb_av] eCW1 ([facility]) Body weight 85.82 kg 85.82 kg eCW1 ([facility]) Body height 62 [in_i] 62 [in_i] eCW1 ([facility]) Body mass index (BMI) [Ratio] 34.60 kg/m2 34.60 kg/m2 eCW1 ([facility]) Heart rate 96 /min 96 /min eCW1 ([facility]) Respiratory rate 18 /min 18 /min eCW1 ([facility]) Body temperature 97.0 [degF] 97.0 [degF] eCW1 ( [facility]) Systolic blood pressure 154 mm[Hg] 154 mm[Hg] e CW1 ([facility]) Diastolic blood pressure 98 mm[Hg] 98 mm[Hg] eCW1 ([facility]) Body weight 189.6 [lb_av] 189.6 [lb_av] eCW1 ([facility]) Body height 62 [in_i] 62 [in_i] eCW1 ([facility]) Body mass index (BMI) [Ratio] 34.67 kg/m2 34.67 kg/m2 W1 ([facility]) Heart rate 101 /min 101 /min eCW1 ([facility]) Respiratory rate 18 /min 18 /min eCW1 ([facility]) Body temperature 97.4 [degF] 97.4 [degF] eCW1 ( [facility]) Systolic blood pressure 138 mm[Hg] 138 mm[Hg] e CW1 ([facility]) Diastolic blood pressure 88 mm[Hg] 88 mm[Hg] eCW1 ([facility]) Body weight 188.8 [lb_av] 188.8 [lb_av] eCW1 ([facility]) Body height 62 [in_i] 62 [in_i] eCW1 ([facility]) Body mass index (BMI) [Ratio] 34.53 kg/m2 34.53 kg/m2 eCW1 ([facility]) Heart rate 108 /min 108 /min eCW1 ([facility]) Respiratory rate 18 /min 18 /min eCW1 ([facility]) Body temperature 97.3 [degF] 97.3 [degF] eCW1 ( [facility]) Systolic blood pressure 138 mm[Hg] 138 mm[Hg] e CW1 ([facility]) Diastolic blood pressure 80 mm[Hg] 80 mm[Hg] eCW1 ([facility]) Body weight 188.6 [lb_av] 188.6 [lb_av] eCW1 ([facility]) Body height 62 [in_i] 62 [in_i] eCW1 ([facility]) Body mass index (BMI) [Ratio] 34.49 kg/m2 34.49 kg/m2 eCW1 ([facility]) Heart rate 98 /min 98 /min eCW1 ([facility]) Respiratory rate 18 /min 18 /min eCW1 ([facility]) Body temperature 98.1 [degF] 98.1 [degF] eCW1 ( [facility]) Systolic blood pressure 138 mm[Hg] 138 mm[Hg] e CW1 ([facility]) Diastolic blood pressure 88 mm[Hg] 88 mm[Hg] eCW1 ([facility]) Body weight 197 [lb_av] 197 [lb_av] eCW1 ([facility]) Body height 62 [in_i] 62 [in_i] eCW1 ([facility]) Body mass index (BMI) [Ratio] 36.03 kg/m2 36.03 kg/m2 eCW1 ([facility]) Heart rate 99 /min 99 /min eCW1 ([facility]) Respiratory rate 18 /min 18 /min eCW1 ([facility]) Body temperature 97.2 [degF] 97.2 [degF] eCW1 ( [facility]) Systolic blood pressure 140 mm[Hg] 140 mm[Hg] e CW1 ([facility]) Diastolic blood pressure 102 mm[Hg] 102 mm[Hg] eCW1 ([facility]) Systolic blood pressure 163 mm[Hg] 163 mm[Hg] M EDENT ([facility], [facility]) Respiratory rate 16 /min 16 /min MEDENT ( [facility]) Oxygen saturation in Arterial blood by Pulse oximetry 98 % 98 % MEDENT ([facility], [facility]) Diastolic blood pressure 105 mm[Hg] 105 mm[Hg] MEDENT ([facility], [facility]) Heart rate 93 /min 93 /min MEDENT ([facility], [facility]) Body temperature 97.1 [degF] 97.1 [degF] MEDENT ([facility], [facility]) Body weight 195.00 [lb_av] 195.00 [lb_av] MEDEN T ([facility], [facility]) Body height 62 [in_i] 62 [in_i] MEDENT ([facility], [facility]) 5'2" Body mass index (BMI) [Ratio] 35.7 kg/m2 35.7 k g/m2 MEDENT ([facility], [facility]) Body weight 193 [lb_av] 193 [lb_av] eCW1 ([facility]) Body height 62 [in_i] 62 [in_i] eCW1 ([facility]) Body mass index (BMI) [Ratio] 35.30 kg/m2 35.30 kg/m2 eCW1 ([facility]) Heart rate 124 /min 124 /min eCW1 ([facility]) Respiratory rate 18 /min 18 /min eCW1 ([facility]) Body temperature 98.3 [degF] 98.3 [degF] eCW1 ( [facility]) Systolic blood pressure 138 mm[Hg] 138 mm[Hg] e CW1 ([facility]) Diastolic blood pressure 80 mm[Hg] 80 mm[Hg] eCW1 ([facility]) Body weight 194 [lb_av] 194 [lb_av] eCW1 ([facility]) Body height 62 [in_i] 62 [in_i] eCW1 ([facility]) Body mass index (BMI) [Ratio] 35.48 kg/m2 35.48 kg/m2 eCW1 ([facility]) Systolic blood pressure 148 mm[Hg] 148 mm[Hg] e CW1 ([facility]) Diastolic blood pressure 98 mm[Hg] 98 mm[Hg] eCW1 ([facility]) Body weight 207 [lb_av] 207 [lb_av] eCW1 ([facility]) Body height 62.75 [in_i] 62.75 [in_i] eCW1 ([facility]) Body mass index (BMI) [Ratio] 36.96 kg/m2 36.96 kg/m2 eCW1 ([facility]) Heart rate 97 /min 97 /min eCW1 ([facility]) Respiratory rate 18 /min 18 /min eCW1 ([facility]) Body temperature 97.9 [degF] 97.9 [degF] eCW1 ( [facility]) Systolic blood pressure 144 mm[Hg] 144 mm[Hg] e CW1 ([facility]) Diastolic blood pressure 82 mm[Hg] 82 mm[Hg] eCW1 ([facility]) Systolic blood pressure 130 mm[Hg] 130 mm[Hg] M EDENT ([facility] [facility]) Body mass index (BMI) [Ratio] 38.0 kg/m2 38.0 k g/m2 MEDENT ([facility]) Diastolic blood pressure 76 mm[Hg] 76 mm[Hg] MEDENT ([facility]) Body height 62.75 [in_i] 62.75 [in_i] MEDENT ([facility]) 5'2.75" Body weight 213.00 [lb_av] 213.00 [lb_av] MEDEN T ([facility]) Body surface area Derived from formula 1.98 m2 1.98 m2 MEDENT ([facility]) Patient Treatment Plan of Care Planned Activity Planned Date Details Description Data Source (s) Amlodipine 10 MG Oral Tablet [Norvasc] 10/12/2020 12:00:00 AM EDT eCW1 ([facility]) Amlodipine 10 MG Oral Tablet [Norvasc] 10/12/2020 12:00:00 AM EDT eCW1 ([facility]) atorvastatin 40 MG Oral Tablet 08/26/2020 12:00:00 AM EDT eCW1 ([facility]) Lisinopril 20 MG Oral Tablet 08/26/2020 12:00:00 AM EDT eCW1 ([facility]) atorvastatin 40 MG Oral Tablet 08/26/2020 12:00:00 AM EDT eCW1 ([facility]) Lisinopril 20 MG Oral Tablet 08/26/2020 12:00:00 AM EDT eCW1 ([facility]) atorvastatin 40 MG Oral Tablet 08/26/2020 12:00:00 AM EDT eCW1 ([facility]) Lisinopril 20 MG Oral Tablet 08/26/2020 12:00:00 AM EDT eCW1 ([facility]) atorvastatin 40 MG Oral Tablet 08/26/2020 12:00:00 AM EDT eCW1 ([facility]) Lisinopril 20 MG Oral Tablet 08/26/2020 12:00:00 AM EDT eCW1 ([facility]) atorvastatin 40 MG Oral Tablet 08/26/2020 12:00:00 AM EDT eCW1 ([facility]) Lisinopril 20 MG Oral Tablet 08/26/2020 12:00:00 AM EDT eCW1 ([facility]) atorvastatin 40 MG Oral Tablet 08/26/2020 12:00:00 AM EDT eCW1 ([facility]) Lisinopril 20 MG Oral Tablet 08/26/2020 12:00:00 AM EDT eCW1 ([facility]) atorvastatin 40 MG Oral Tablet 08/26/2020 12:00:00 AM EDT eCW1 ([facility]) Lisinopril 20 MG Oral Tablet 08/26/2020 12:00:00 AM EDT eCW1 ([facility]) Fluconazole 150 MG Oral Tablet [Diflucan] 08/23/2020 12:00:00 AM ED T eCW1 ([facility]) Fluconazole 150 MG Oral Tablet [Diflucan] 08/23/2020 12:00:00 AM ED T eCW1 ([facility]) Fluconazole 150 MG Oral Tablet [Diflucan] 08/23/2020 12:00:00 AM ED T eCW1 ([facility]) gabapentin 100 MG Oral Capsule 08/10/2020 12:00:00 AM EDT eCW1 ([facility]) 24 HR Metformin hydrochloride 500 MG Extended Release Oral Tablet 08/10/2020 12:00:00 AM EDT eCW1 ([facility]) gabapentin 100 MG Oral Capsule 08/10/2020 12:00:00 AM EDT eCW1 ([facility]) 24 HR Metformin hydrochloride 500 MG Extended Release Oral Tablet 08/10/2020 12:00:00 AM EDT eCW1 ([facility]) gabapentin 100 MG Oral Capsule 08/10/2020 12:00:00 AM EDT eCW1 ([facility]) 24 HR Metformin hydrochloride 500 MG Extended Release Oral Tablet 08/10/2020 12:00:00 AM EDT eCW1 ([facility])
--- OUTSIDE RECORDS SUMMARY | 2021-01-06 07:19 | CCD ---
Author Author [facility] Organization [facility] Address Unknown Phone Unavailable Care Team Providers Care Clinical Dermatologist Name Role Phone NO, PCP Unavailable Unavailable [...] is protected by Article 27-F of the [facility] Public Health law. If you continue you may have access to information: Regarding HIV / AIDS; Provided by facilities licensed or operated by the [facility] Office of Mental Health; or Provided by the [facility] Office for People With Developmental Disabilities. If such information is present, then the following [facility] mandated warning applies: This information has been [...] law may result in a fine or snf sentence or both. A general authorization for the release of medical or other information is NOT sufficient authorization for further disc losure. Allergies and Adverse Reactions Type Description Substance Reaction Status Data Source(s ) No Known Drug Allergies No Known Drug Allergies [facility] Food allergy SHELLFISH SHELLFISH RASH [facility] Drug allergy kenn kenn [facility] Food allergy shellfish derived shellfish derived [facility] Family History Family Member Name Family Member Gender Family Member Status Date o f Status Description Data Source(s) Unknown Unknown Problem MEDENT ([facility]) Unknown Unknown Problem MEDENT (Soren quintero [employer]UDIO [employer]) Unknown Male Problem MEDENT ([facility]) Encounters Encounter Providers Location Date Indications Data Source(s ) Emergency Attender: Matty Ray PA-C 2020 08:52:00 AM EDT - 01/04/2021 09:40:00 AM EDT [facility] Patient discharged. Emergency Attender: GEETHA DOLL MDConsultant: PCP NO 12/20/2020 12:29:00 AM EDT - 12/20/2020 02:42:00 AM EDT [facility] Patient discharged. [place] [address] [facility] [address] 12/10/2020 12:00:00 AM EDT eCW1 ([facility]) [place] [address] [facility] [place] [address] 12/10/2020 12:00:00 AM EDT eCW1 ([facility]) [place] [address] [facility] [address] 12/03/2020 12:00:00 AM EDT eCW1 ([facility]) Outpatient Attender: JOLANTA [employer] cashier payments received 11:45:00 AM EDT MEDENT ([employer]) Outpatient Referrer: PROVIDER SYSTEM IN 11/02/2020 1 2:00:00 AM EDT Other intra-abdominal and pelvic swelling, mass and lump [facility] Other intra-abdominal and pelvic swellin g, mass and lump [place] [address] [facility] [address] 10/27/2020 12:00:00 AM EDT eCW1 ([facility]) [place] [address] [facility] [address] 10/26/2020 12:00:00 AM EDT eCW1 ([facility]) [place]patient [address] [facility] [place] [address] 10/12/2020 12:00:00 AM EDT eCW1 ([facility]) [place] [address] [facility] [address] 10/11/2020 12:00:00 AM EDT eCW1 ([facility]) [place] [address] [facility] [address] 09/28/2020 12:00:00 AM EDT eCW1 ([facility]) [place] [address] [facility] [address] 09/14/2020 12:00:00 AM EDT eCW1 ([facility]) [place] [address] [facility] [address] 09/01/2020 12:00:00 AM EDT [facility]CW1 ([facility]) [place] [address] [facility] [address] 08/27/2020 12:00:00 AM EDT [facility]CW1 [facility] [place] [address] [facility] [address] 08/26/2020 12:00:00 AM EDT eCW1 ([facility]) Emergency Attender: ASHIA TRUJILLO 08/23 11:17:00 PM EDT - 08/23/2020 11:40:00 PM T [facility] Patient discharged. [place] [address] [facility] [address] 08/23/2020 12:00:00 AM EDT eCW1 ([facility]) [place] [address] [facility] [address] 08/23/2020 12:00:00 AM EDT eCW1 ([facility]) [place] [address] [facility] [address] 08/23/2020 12:00:00 AM EDT eCW1 ([facility]) Out[place] [address] [facility] [address] 08/20/2020 12:00:00 AM EDT eCW1 ([facility]) Outpatient Attender: Radha Hull PA-C 08/18/2020 01:20:40 PM EDT - 08/18/2020 01:58:21 PM EDT [facility] ([facility]) Unknown [address] [facility] [address] 08/18/2020 12:00:00 AM EDT eCW1 ([facility]) Office Visit, Est Pt., Level 4 PC [address] [place] [address] 08/10/2020 12:00:00 AM EDT eCW1 ([facility]ending [facility] to [facility]) Unknown [address] [facility] [address] 08/10/2020 12:00:00 AM EDT eCW1 ([facility]) Emergency Attender: EMIR TRUJILLO 01:12:00 AM EDT - 08/04/2020 02:25:00 AM EDT [facility] Patient discharged. Outpatient Attender: KYLAH covarrubias 08/03/2020 09:35:00 AM EDT MEDENT ([facility]) Unknown [address] [facility] [place] [address] 08/02/2020 12:00:00 AM EDT eCW1 ([facility]) Unknown [address] [facility] [place] [address] 07/30/2020 12:00:00 AM EDT eCW1 ([facility]) Unknown [address] [facility] [address] 07/30/2020 12:00:00 AM EDT eCW1 ([facility]) Outpatient [address] [facility] [place] [address] 07/29/2020 12:00:00 AM EDT eCW1 ([facility]) Outpatient [address] [facility] [place] [address] 07/29/2020 12:00:00 AM EDT eCW1 ([facility]) Outpatient [address] [facility] [address] 07/16/2020 12:00:00 AM EDT eCW1 ([facility]) Emergency Attender: GEETHA DOLL MDConsultant: PCP NO 06/26/2020 10:22:00 AM EDT - 06/26/2020 12:49:00 PM EDT [facility] Patient discharged. Emergency Attender: JUJU OROZCO MD 06/04 09:07:00 AM EDT - 06/26/2020 09:30:00 AM EDT [facility] Patient discharged. Emergency Attender: KYLAH CERNA MD 06/03 02:50:00 AM EDT - 06/21/2020 05:20:00 AM EDT [facility] Patient discharged. Emergency Attender: GERRI JETER MDConsultant: PCP NO 06/21/2020 01:56:00 AM EDT - 06/21/2020 02:00:00 AM EDT [facility] Patient discharged. Outpatient Attender: JOLANTA HERNANDEZ MD [employer] cashier payments received 02/2021 02:00:00 PM EDT MEDENT ([employer]) Outpatient Attender: JOLANTA HERNANDEZ MD [employer] cashier payments received 10:45:00 AM EDT MED[facility] ([employer]) Emergency Attender: LEAH CAMPBELLConsultant: PCP NO 05/11/2020 12:46:00 AM EST - 05/11/2020 02:20:00 AM EST [facility] Patient discharged. Emergency Attender: RADHA TRUJILLO EMERGENCY ROOM- ER 03/21/2019 01:32:00 PM EST - 03/21/2019 05:58:00 PM [facility] Patient discharged. Immunizations Vaccine Date Status Description Data Source(s) COVID-19 VACC, MRNA(PFIZER)/PF 09/14/2020 12:00:00 AM EDT completed [facility] COVID-19 VACCINE Pfizer 09/14/2020 12:00:00 AM EDT completed [facility] Vaccine Series Complete: YESThis Data wa s Submitted to [facility] Via [facility]. COVID-19 VACC, MRNA(PFIZER)/PF 08/24/2020 12:00:00 AM EDT completed [facility] COVID-19 VACCINE Pfizer 08/24/2020 12:00:00 AM EDT completed [facility] Vaccine Series Complete: NOThis Data was Submitted to [facility] Via [facility]. Medications Medication Brand Name Start Date Product Form Dose Route Admi nistrative Instructions Pharmacy Instructions Status Indications Reaction Description Data Source(s) Cyclobenzaprine hydrochloride 10 MG Oral Tablet CYCLOBENZAPR INE HCL 01/04/2021 12:00:00 AM EDT tablet 12 TAKE ONE TABLET BY MOUTH THREE TIMES A DAY TAKE ONE TABLET BY MOUTH THREE TIMES A DAY SOLD: 01/04/2021 [facility] 20 mg 12/20/2020 12:00:00 AM EDT tablet [...] AM EDT suspended Norva sc 10mg eCW1 ([facility]) 100 mg 10/12/2020 12:00:00 AM EDT capsule 90 TAKE ONE CAPSULE BY MOUTH THREE TIMES A DAY TAKE ONE CAPSULE BY MOUTH THREE TIMES A DAY SOLD: 10/12/2020 [facility] Amlodipine 10 MG Oral Tablet [Norvasc] Norvasc 10mg Norvasc 10mg 10/12/2020 12:00:00 AM EDT active Norvasc 10mg eCW1 ([facility]) Amlodipine 10 MG Oral Tablet [Norvasc] Norvasc 10mg Norvasc 10mg 10/12/2020 12:00:00 AM EDT suspended Norva sc 10mg eCW1 ([facility]) Amlodipine 10 MG Oral Tablet [Norvasc] Norvasc 10mg Norvasc 10mg 10/12/2020 12:00:00 AM EDT suspended Norva sc 10mg eCW1 ([facility]) 500 mg 10/12/2020 12:00:00 AM EDT tablet extended release 24 hr 60 TAKE 1 TABLET BY MOUTH EVERY DAY WITH EVENING MEAL TWO TIMES A DAY TAKE 1 TABLET BY MOUTH EVERY DAY WITH EVENING MEAL TWO TIMES A DAY SOLD: 10/12/2020 [facility] Amlodipine 10 MG Oral Tablet [Norvasc] Norvasc 10mg Norvasc 10mg 10/12/2020 12:00:00 AM EDT suspended Norva sc 10mg eCW1 ([facility]) Amlodipine 10 MG Oral Tablet [Norvasc] Norvasc 10mg Norvasc 10mg 10/12/2020 12:00:00 AM EDT suspended Norva sc 10mg eCW1 ([facility]) Amlodipine 10 MG Oral Tablet [Norvasc] Norvasc 10mg Norvasc 10mg 10/12/2020 12:00:00 AM EDT active Norvasc 10mg eCW1 ([facility]) 100 mg 09/30/2020 12:00:00 AM EDT capsule [...] activ e Atorvastatin Calcium 40 MG eCW1 ([facility]) Lisinopril 20 MG Oral Tablet Lisinopril 20 MG 08/26/2020 12:00:00 A M EDT 1.0 {tablet} suspended Lisinopril 20 MG eCW1 ([facility]) atorvastatin 40 MG Oral Tablet Atorvastatin Calcium 40 MG Atorvastatin Calcium 40 MG 08/26/2020 12:00:00 AM EDT 1.0 {tablet} suspe nded Atorvastatin Calcium 40 MG eCW1 ([facility]) atorvastatin 40 MG Oral Tablet Atorvastatin Calcium 40 MG Atorvastatin Calcium 40 MG 08/26/2020 12:00:00 AM EDT 1.0 {tablet} suspe nded Atorvastatin Calcium 40 MG eCW1 ([facility]) Lisinopril 20 MG Oral Tablet Lisinopril 20 MG 08/26/2020 12:00:00 A M EDT 1.0 {tablet} suspended Lisinopril 20 MG eCW1 ([facility]) atorvastatin 40 MG Oral Tablet Atorvastatin Calcium 40 MG Atorvastatin Calcium 40 MG 08/26/2020 12:00:00 AM EDT 1.0 {tablet} activ e Atorvastatin Calcium 40 MG eCW1 ([facility]) Lisinopril 20 MG Oral Tablet Lisinopril 20 MG 08/26/2020 12:00:00 A M EDT 1.0 {tablet} active Lisinopril 20 MG eCW1 ( [facility]) Lisinopril 20 MG Oral Tablet Lisinopril 20 MG 08/26/2020 12:00:00 A M EDT 1.0 {tablet} suspended Lisinopril 20 MG eCW1 ([facility]) atorvastatin 40 MG Oral Tablet Atorvastatin Calcium 40 MG Atorvastatin Calcium 40 MG 08/26/2020 12:00:00 AM EDT 1.0 {tablet} suspe nded Atorvastatin Calcium 40 MG eCW1 ([facility]) atorvastatin 40 MG Oral Tablet Atorvastatin Calcium 40 MG Atorvastatin Calcium 40 MG 08/26/2020 12:00:00 AM EDT 1.0 {tablet} activ e Atorvastatin Calcium 40 MG eCW1 ([facility]) atorvastatin 40 MG Oral Tablet Atorvastatin Calcium 40 MG Atorvastatin Calcium 40 MG 08/26/2020 12:00:00 AM EDT 1.0 {tablet} activ e Atorvastatin Calcium 40 MG eCW1 ([facility]) Lisinopril 20 MG Oral Tablet Lisinopril 20 MG 08/26/2020 12:00:00 A M EDT 1.0 {tablet} active Lisinopril 20 MG eCW1 ( [facility]) atorvastatin 40 MG Oral Tablet Atorvastatin Calcium 40 MG Atorvastatin Calcium 40 MG 08/26/2020 12:00:00 AM EDT 1.0 {tablet} suspe nded Atorvastatin Calcium 40 MG eCW1 ([facility]) atorvastatin 40 MG Oral Tablet Atorvastatin Calcium 40 MG Atorvastatin Calcium 40 MG 08/26/2020 12:00:00 AM EDT 1.0 {tablet} suspe nded Atorvastatin Calcium 40 MG eCW1 ([facility]) Lisinopril 20 MG Oral Tablet Lisinopril 20 MG 08/26/2020 12:00:00 A M EDT 1.0 {tablet} active Lisinopril 20 MG eCW1 ( [facility]) Lisinopril 20 MG Oral Tablet Lisinopril 20 MG 08/26/2020 12:00:00 A M EDT 1.0 {tablet} suspended Lisinopril 20 MG eCW1 ([facility]) atorvastatin 40 MG Oral Tablet Atorvastatin Calcium 40 MG Atorvastatin Calcium 40 MG 08/26/2020 12:00:00 AM EDT 1.0 {tablet} suspe nded Atorvastatin Calcium 40 MG eCW1 ([facility]) Lisinopril 20 MG Oral Tablet Lisinopril 20 MG 08/26/2020 12:00:00 A M EDT 1.0 {tablet} active Lisinopril 20 MG eCW1 ( [facility]) Lisinopril 20 MG Oral Tablet Lisinopril 20 MG 08/26/2020 12:00:00 A M EDT 1.0 {tablet} active Lisinopril 20 MG eCW1 ( [facility]) Lisinopril 20 MG Oral Tablet Lisinopril 20 MG 08/26/2020 12:00:00 A M EDT 1.0 {tablet} suspended Lisinopril 20 MG eCW1 ([facility]) atorvastatin 40 MG Oral Tablet Atorvastatin Calcium 40 MG Atorvastatin Calcium 40 MG 08/26/2020 12:00:00 AM EDT 1.0 {tablet} activ e Atorvastatin Calcium 40 MG eCW1 ([facility]) atorvastatin 40 MG Oral Tablet Atorvastatin Calcium 40 MG Atorvastatin Calcium 40 MG 08/26/2020 12:00:00 AM EDT 1.0 {tablet} suspe nded Atorvastatin Calcium 40 MG eCW1 ([facility]) Lisinopril 20 MG Oral Tablet Lisinopril 20 MG 08/26/2020 12:00:00 A M EDT 1.0 {tablet} active Lisinopril 20 MG eCW1 ( [facility]) atorvastatin 40 MG Oral Tablet Atorvastatin Calcium 40 MG Atorvastatin Calcium 40 MG 08/26/2020 12:00:00 AM EDT 1.0 {tablet} activ e Atorvastatin Calcium 40 MG eCW1 ([facility]) atorvastatin 40 MG Oral Tablet Atorvastatin Calcium 40 MG Atorvastatin Calcium 40 MG 08/26/2020 12:00:00 AM EDT 1.0 {tablet} activ e Atorvastatin Calcium 40 MG eCW1 ([facility]) Lisinopril 20 MG Oral Tablet Lisinopril 20 MG 08/26/2020 12:00:00 A M EDT 1.0 {tablet} suspended Lisinopril 20 MG eCW1 ([facility]) Lisinopril 20 MG Oral Tablet Lisinopril 20 MG 08/26/2020 12:00:00 A M EDT 1.0 {tablet} active Lisinopril 20 MG eCW1 ( [facility]) Lisinopril 20 MG Oral Tablet Lisinopril 20 MG 08/26/2020 12:00:00 A M EDT 1.0 {tablet} suspended Lisinopril 20 MG eCW1 ([facility]) 100 mg 08/24/2020 12:00:00 AM EDT capsule 60 TAKE ONE CAPSULE BY MOUTH THREE TIMES A DAY DIRECTED TAKE ONE CAPSULE BY MOUTH THREE TIMES A DAY DIRECTED SOLD: 08/24/2020 [facility] Fluconazole 150 MG Oral Tablet [Diflucan] Diflucan 150 MG Di flucan 150 MG 08/23/2020 12:00:00 AM EDT 1.0 {tablet} active Diflucan 150 MG eCW1 ([facility]) Fluconazole 150 MG Oral Tablet [Diflucan] Diflucan 150 MG Di flucan 150 MG 08/23/2020 12:00:00 AM EDT 1.0 {tablet} suspended Diflucan 150 MG eCW1 ([facility]) Fluconazole 150 MG Oral Tablet [Diflucan] Diflucan 150 MG Di flucan 150 MG 08/23/2020 12:00:00 AM EDT 1.0 {tablet} suspended Diflucan 150 MG eCW1 ([facility]) Fluconazole 150 MG Oral Tablet [Diflucan] Diflucan 150 MG Di flucan 150 MG 08/23/2020 12:00:00 AM EDT 1.0 {tablet} suspended Diflucan 150 MG eCW1 ([facility]) Fluconazole 150 MG Oral Tablet [Diflucan] Diflucan 150 MG Di flucan 150 MG 08/23/2020 12:00:00 AM EDT 1.0 {tablet} suspended Diflucan 150 MG eCW1 ([facility]) Fluconazole 150 MG Oral Tablet [Diflucan] Diflucan 150 MG Di flucan 150 MG 08/23/2020 12:00:00 AM EDT 1.0 {tablet} suspended Diflucan 150 MG eCW1 ([facility]) Fluconazole 150 MG Oral Tablet [Diflucan] Diflucan 150 MG Di flucan 150 MG 08/23/2020 12:00:00 AM EDT 1.0 {tablet} suspended Diflucan 150 MG eCW1 ([facility]) Fluconazole 150 MG Oral Tablet [Diflucan] Diflucan 150 MG Di flucan 150 MG 08/23/2020 12:00:00 AM EDT 1.0 {tablet} suspended Diflucan 150 MG eCW1 ([facility]) Fluconazole 150 MG Oral Tablet [Diflucan] Diflucan 150 MG Di flucan 150 MG 08/23/2020 12:00:00 AM EDT 1.0 {tablet} active Diflucan 150 MG eCW1 ([facility]) Fluconazole 150 MG Oral Tablet [Diflucan] Diflucan 150 MG Di flucan 150 MG 08/23/2020 12:00:00 AM EDT 1.0 {tablet} suspended Diflucan 150 MG eCW1 ([facility]) Fluconazole 150 MG Oral Tablet [Diflucan] Diflucan 150 MG Di flucan 150 MG 08/23/2020 12:00:00 AM EDT 1.0 {tablet} suspended Diflucan 150 MG eCW1 ([facility]) Fluconazole 150 MG Oral Tablet [Diflucan] Diflucan 150 MG Di flucan 150 MG 08/23/2020 12:00:00 AM EDT 1.0 {tablet} suspended Diflucan 150 MG eCW1 ([facility]) Fluconazole 150 MG Oral Tablet [Diflucan] Diflucan 150 MG Di flucan 150 MG 08/23/2020 12:00:00 AM EDT 1.0 {tablet} suspended Diflucan 150 MG eCW1 ([facility]) Fluconazole 150 MG Oral Tablet [Diflucan] Diflucan 150 MG Di flucan 150 MG 08/23/2020 12:00:00 AM EDT 1.0 {tablet} suspended Diflucan 150 MG eCW1 ([facility]) Fluconazole 150 MG Oral Tablet [Diflucan] Diflucan 150 MG Di flucan 150 MG 08/23/2020 12:00:00 AM EDT 1.0 {tablet} suspended Diflucan 150 MG eCW1 ([facility]) Fluconazole 150 MG Oral Tablet [Diflucan] Diflucan 150 MG Di flucan 150 MG 08/23/2020 12:00:00 AM EDT 1.0 {tablet} suspended Diflucan 150 MG eCW1 ([facility]) 150 mg 08/23/2020 12:00:00 AM EDT tablet [...] 1.0 {tablet} active Diflucan 150 MG eCW1 ([facility]) 500 mg 08/20/2020 12:00:00 AM EDT tablet extended release 24 hr 60 TAKE ONE TABLET BY MOUTH TWICE A DAY WITH EVENING MEAL TAKE ONE TABLET BY MOUTH TWICE A DAY WITH EVENING MEAL SOLD: 09/11/2020 [facility] 100 mg 08/20/2020 12:00:00 AM [...] A DAY WITH EVENING MEAL SOLD: 08/24/2020 [facility] 24 HR Metformin hydrochloride 500 MG Ext ended Release Oral Tablet metFORMIN HCl ER 500 MG metFORMIN HCl ER 500 MG 08/10/2020 12:00:00 AM EDT 1.0 {tablet_with_evening_meal} active metFO RMIN HCl ER 500 MG eCW1 ([facility]) 24 HR Metformin hydrochloride 500 MG Ext ended Release Oral Tablet metFORMIN HCl ER 500 MG metFORMIN HCl ER 500 MG 08/10/2020 12:00:00 AM EDT 1.0 {tablet_with_evening_meal} active metFO RMIN HCl ER 500 MG eCW1 ([facility]) gabapentin 100 MG Oral Capsule Gabapentin 100 MG Gabapentin 100 MG 08/10/2020 12:00:00 AM EDT 1.0 {capsule} active G abapentin 100 MG eCW1 ([facility]) 100 mg 08/10/2020 12:00:00 AM EDT capsule [...] {capsule} active G abapentin 100 MG eCW1 ([facility]) gabapentin 100 MG Oral Capsule Gabapentin 100 MG Gabapentin 100 MG 08/10/2020 12:00:00 AM EDT 1.0 {capsule} active G abapentin 100 MG eCW1 ([facility]) 24 HR Metformin hydrochloride 500 MG Ext ended Release Oral Tablet metFORMIN HCl ER 500 MG metFORMIN HCl ER 500 MG 08/10/2020 12:00:00 AM EDT 1.0 {tablet_with_evening_meal} active metFO RMIN HCl ER 500 MG eCW1 ([facility]) 50 mg 08/09/2020 12:00:00 AM EDT tablet 30 TAKE 1-2 TABLETS BY MOUTH AT BEDTIME NEEDED FOR SLEEP TAKE 1-2 TABLETS BY MOUTH AT BEDTIME NEEDED FOR SLEEP SOLD: 08/10/2020 [facility] 5 mg 08/09/2020 12:00:00 AM EDT tablet 30 TAKE ONE TABLET BY MOUTH EVERY DAY TAKE ONE TABLET BY MOUTH EVERY DAY SOLD: 08/10/2020 [facility] 5-325 mg 08/04/2020 12:00:00 AM EDT tablet 24 TAKE ONE TABLET BY MOUTH EVERY 4 HOURS NEEDED FOR PAIN MAXIMUM DAILY DOSE = 6 TAKE ONE TABLET BY MOUTH EVERY 4 HOURS NEEDED FOR PAIN MAXIMUM DAILY DOSE = 6 SOLD: 08/04/2020 [facility] No Active Medications 08/03/2020 12:00:00 AM EDT completed [facility] ([facility] 50 mg 07/20/2020 12:00:00 AM EDT tablet [...] pack 06/21/2020 04:23:10 AM EDT 0 active [facility] Methylprednisolone Methylprednisolone (Medrol ([facility])) 4 mg tablets,dose pack Methylprednisolone (Medrol ([facility])) 4 mg tablets,dose pack 06/21/2020 04:23:10 AM EDT 0 active [facility] 4 mg 06/21/2020 12:00:00 AM EDT tablets,dose [...] AM EDT ORAL active [facility] ([facility] [employer]) 8.6 mg 06/05/2020 12:00:00 AM EDT tablet [...] Medications 05/24/2020 12:00:00 AM EDT completed [facility] (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) 20 mg 05/11/2020 12:00:00 AM EST tablet [...] A DAY FOR 10 DAYS SOLD: 02/19/2020 [facility] 875 mg 12/17/2019 12:00:00 AM EDT tablet 14 TAKE ONE TABLET BY MOUTH EVERY 12 HOURS FOR 7 DAYS TAKE ONE TABLET BY MOUTH EVERY 12 HOURS FOR 7 DAYS FRANKY [facility] Insurance Providers Payer name Policy type / Coverage type Policy ID Covered republican ID Covered republican's relationship to ackerman Policy Ackerman Plan Information [place] [id number] S [id number] MEDICARE [id number] [place] [id number] [id number] MEDICARE [id number] [place] [id number] A [place] [id number] S [id number] MEDICARE [id number] xxxxxxxxxxx [id number] [facility] MEDICARE DIVISION [id number] S [id number] MEDICARE A [id number] Self [id number] [place] [id number] S [id number] Medicare [place] Medicare Primary [id number] Self [id number] [facility] MEDICARE DIVISION [id number] S [id number] [place] [id number] S [id number] MEDICARE [id number] SP [id number] A [facility] MEDICARE DIVISION [id number] S [id number] MEDICARE A [id number] Self [id number] A [facility] MEDICARE DIVISION [id number] S [id number] MEDICARE M [id number] S [id number] A MEDICARE [id number] SP [id number] A [place] Med[place] Part B [id number] Self [id number] MEDICAID [id number] SP [id number] MEDICAID M [id number] Self [id number] MEDICAID [id number] xxxxxxxx [id number] MEDICAID [id number] [place] [id number] MEDICAID [id number] S [id number] Medicaid Medicaid [id number] Self [id number] [facility] Part B [id number] Self [id number] Medicare [place] Medicare Primary [id number] Self [id number] [facility] C [id number] S [id number] MEDICAID -PHYSICIAN [id number] [facility] [id number] Self [id number] Medicare [place] Medicare Primary [id number] Self [id number] [facility] [id number] Self [id number] Medicare [place] Medicare Primary [id number] Self [id number] [facility] [id number] Self [id number] Medicare [place] Medicare Primary [id number] Self [id number] [facility] PART B C [id number] S [id number] [place] Med[place] Part B [id number] Self [id number] Medicare [place] Medicare Primary [id number] Self [id number] MEDICAID W UNAVAILABLE S UNAVAILA BLE [place]ICARE [place] [facility] [id number] S [id number] A [facility] MEDICAID [id number] SP [id number] C [id number] A MEDICARE [id number] SP [id number] G43 MEDICARE PART A -O/P [id number] 18 [id number] MEDICAID -O/P EMERGENCY ROOM [id number] 18 [id number] MEDICARE [id number] SP [id number] A MEDICAID [id number] S [id number] MEDICAID [id number] S [id number] EMEDNY [id number] SP [id number] MEDICARE C [id number] S [id number] [id number] MEDICAID M [id number] S [id number] MEDICAID [id number] SP [id number] MEDICARE PART A -O/P [id number] 18 [id number] Medicaid [facility] Part B [id number] Self [id number] Medicare Natl Gov't Servi Medicare Primary [id number] Self [id number] Medicaid [facility] Part B [id number] Self [id number] Medicare Natl Gov't Servi Medicare Primary [id number] Self [id number] Medicaid [facility] Part B [id number] Self [id number] MEDICARE C [id number] S [id number] A [facility] PART B C [id number] S [id number] MEDICAID -I [id number] MEDICARE PART A -I [id number] 18 [id number] MEDICAID -I/P [id number] 18 [id number] MEDICARE PART A -I/P [id number] 18 [id number] MEDICAID -O/P SHEILA [id number] 18 [id number] MEDICARE PART A -O [id number] 18 [id number] Problems, Conditions, and Diagnoses Code Display Name Description Problem Type Effective Dates Data Source(s) B39884 Nicotine dependence, unspecified, uncomp licated Nicotine dependence, unspecified, uncomplicated Diagnosis 12/20/2020 12:29:00 AM EDT [employer] E119 Type 2 diabetes mellitus without complic ations Type 2 diabetes mellitus without complications Diagnosis 12/20/2020 12:29:00 AM EDT [facility] I10 Essential (primary) hypertension Essential (primary) h ypertension Diagnosis 12/20/2020 12:29:00 AM EDT [facility] G8929 Other chronic pain Other chronic pain Diagnosis 12:29:00 AM EDT [facility] M5450 Low back pain, unspecified Low back pain, unspecified Diagnosis 12/20/2020 12:29:00 AM EDT [facility] R14.0 Abdominal distension (gaseous) Abdominal distension (g aseous) Diagnosis 11/02/2020 01:21:39 PM T [facility] R19.09 Other intra-abdominal and pelvic swellin g, mass and lump Other intra- abdominal and pelvic swelling, mass and lump Diagnosis 01:21:39 PM EDT [facility] Z79.899 Other bed bug exterminator (current) drug therapy O THER HALF-WAY (CURRENT) DRUG THERAPY Diagnosis 08/23/2020 11:17:00 PM EDT [facility] F17.210 Nicotine dependence, cigarettes, uncompl icated NICOTINE DEPENDENCE, CIGARETTES, UNCOMPLICATED Diagnosis 08/23/2020 11:17:00 PM EDT [facility] G57.92 Unspecified mononeuropathy of left lower limb UNSPECIFIED MONONEUROPATHY OF LEFT LOWER LIMB Diagnosis 08/23/2020 11:17:00 PM EDT [facility] M79.605 Pain in left leg PAIN IN LEFT LEG Diagnosis 08/23/2020 11 :17:[address] [facility] G95.29 Other cord compression OTHER CORD COMPRESSION Diagnosi s 08/04/2020 01:12:[address] [facility] M54.16 Radiculopathy, lumbar region RADICULOPATHY, LUMBAR REG ION Diagnosis 08/04/2020 01:12:[address] [facility] M79.662 Pain in left lower leg PAIN IN LEFT LOWER LEG Diagnosi s 08/04/2020 01:12:[address] [facility] Y[address] or not applicable Unspecified place or not applicable Diagnosis 06/26/2020 10:22:00 AM [facility] E63PULA Exposure to other specified factors, ini tial encounter Exposure to other specified factors, initial encounter Diagnosis 06/26/2020 10:22:00 AM [facility] [id number] Strain of muscle, fascia and tendon of the posterior muscle group at thigh level, left thigh, initial encounter Strain of muscle, fascia and tendon of the posterior muscle group at thigh level, left thigh, initial encounter Diagnosis 06/26/2020 10:22:00 AM [facility] F87226 Nicotine dependence, cigarettes, uncompl icated Nicotine dependence, cigarettes, uncomplicated Diagnosis 06/26/2020 10:22:00 AM [facility] B373 Candidiasis of vulva and vagina Candidiasis of vulva a nd vagina Diagnosis 06/26/2020 10:22:00 AM [facility] E1165 Type 2 diabetes mellitus with hyperglyce garcía Type 2 diabetes mellitus with hyperglycemia Diagnosis 06/26/2020 10:22:00 AM [facility] [id number] Strain of left quadriceps muscle, fascia and tendon, initial encounter Strain of left quadriceps muscle, fascia and tendon, initial encounter Diagnosis 06/26/2020 10:22:00 AM [facility] G20513 Pain in left lower leg Pain in left lower leg Diagnosi s 06/26/2020 10:22:00 AM [facility] Z5321 Procedure and treatment not carried out due to patient leaving prior to being seen by health care provider Procedure and treatment not carried out due to patient leaving prior to being seen by health care provider Diagnosis 06/21/2020 01:56:00 AM EDT [facility] L2389 Allergic contact dermatitis due to other agents Allergic contact dermatitis due to other agents Diagnosis 05/11/2020 12:46:00 AM [facility] L299 Pruritus, unspecified Pruritus, unspecified Diagnosis 05/11/2020 12:46:00 AM [facility] I10 [id number] Hypertension, unspecified type Problem 10/12 12:00:00 AM EDT eCW1 ([facility]) M54.30 [id number] Sciatic leg pain Problem 08/10/2020 12:00:00 AM EDT eCW1 ([facility]) G43.011 [id number] Intractable migraine without aur a and with status migrainosus Problem 08/10/2020 12:00:00 AM EDT eCW1 ([facility]) R10.2 [id number] Pelvic pain in female Problem 07/29/2020 12: 00:00 AM EDT eCW1 ([facility]) N91.2 21859164 Amenorrhea Problem 07/29/2020 12:00:00 AM ED T eCW1 ([facility]) N91.5 67627096 Oligomenorrhea Problem 07/29/2020 12:00:00 A M EDT eCW1 ([facility]) Z85.79 [id number] History of lymphoma Problem 07/16/2020 12:00 :00 AM EDT eCW1 ([facility]) F17.200 66836325 Nicotine use disorder Problem 07/16/2020 12: 00:00 AM EDT eCW1 ([facility]) E11.65 66011129 Type 2 diabetes jayleen itus with hyperglycemia, without long-term current use of insulin Problem 07/16/2020 12:00:00 AM EDT eCW1 ([facility]) J96.11 527208728 Chronic respiratory failure with hypoxia Problem 07/16/2020 12:00:00 AM EDT eCW1 ([facility]) I10 16704542 Essential hypertension Problem 07/16/2020 12 :00:00 AM EDT eCW1 ([facility]) N93.9 804150366 Vaginal bleeding Problem 07/16/2020 12:00:00 AM EDT eCW1 ([facility]) G47.33 87688746 NICA treated with BiPAP Problem 07/16/2020 12 :00:00 AM EDT eC1 ([facility]) E66.01 321023175 Obesity, morbid, BMI 50 or higher Problem 07/16/2020 12:00:00 AM EDT eCW1 ([facility]) M54.32 Sciatica Left sided sciatica Problem 07/16/2020 12:00 :00 AM EDT eCW1 ([facility]) F32.9 94504919 Depressive disorder Problem 07/16/2020 12:00 :00 AM EDT eC1 ([facility]) Surgeries/Procedures Procedure Description Date Indications Data Source(s) OFFICE OUTPATIENT VISIT 25 MINUTES 12/01/2020 12:00:00 AM EDT [facility] ([facility]) ULTRASOUND TRANSVAGINAL <td>US TRANSVAGINAL 50908</td><td>Routine</td><td>11/02/2020 2:34 PM EDT</td><td> Groin swelling Abdominal bloating</td><td></td> 11/02/2020 02:34:51 PM [facility] Groin swelling Medication: Toradol 60mg/2mL IM (Ketorolac) 08/10/2020 12:00:00 AM EDT eCW1 ([facility]) Therapeutic, Prophylactic Or Diagnostic Injection Subq/Im 08/03/2020 12:00:00 AM EDT [facility] ([facility]) URINE TEST 07/29/2020 12:00:00 AM EDT eC1 ([facility]) OFFICE OUTPATIENT VISIT 15 MINUTES 06/14/2020 12:00:00 AM EDT [facility] ([facility] [employer]) Results ID Date Data Source [id number] 12/20/2020 12:29:00 AM EDT [place] [address] OrderSheet [facility] Emergency Department [address] [place] [address] Phone #: ext- [phone] 12/20/2020 00:23 Patient: ARNOLDO RAMIREZ Sex: F : 1975 Age: 45yWEIGHT:86.1 kg (S) HEIGHT:62 inches (S) BMI:34.8ALLERGIES: No Known Drug AllergyCHIEF COMPLAINT: back painDIAGNOSIS: BackacheLAB ORDERSOrder Description Priority Entered Acknowledged InitialedDIAGNOSTIC STUDY ORDERSOrder Description Priority Entered Ac knowledged InitialedMEDICATION/IV/DRIP/FLUID ORDERSOrder Description Priority Entered Acknowledged InitialedFlexeril PO 10 mg 00:43 12/20/2020 00:49 Kiana,(NOW x1) Geetha Doll MD; Rosa CopelandpredniSONE PO 60 00:43 12/20/2020 00:49 Kiana,mg (NOW x1) Geetha Doll MD; Rosa CopelandToradol IM 30 mg 00:43 12/20/2020 00:49 Kiana,(NOW x1) Geetha Doll MD; Rosa CopelandGENERAL ORDERSOrder Description Priority Entered Acknowledged Initialed[Electronically signed by Geetha Doll MD (01:48 12/20/2020)][Electronically signed by Princess Lynch R.N. (02:42 12/20/2020)][Electronically locked by Princess Lynch R.N. (02:42 12/20/2020)] Name Value Range Interpretation Code Description Data Tiff rce(s) Supporting Document(s) ID Date Data Source [id number] 12/20/2020 12:29:00 AM EDT [facility] 1 Medication Reconciliation Report [facility] Emergency Department [address] [place] [address] Phone #: ext- [phone] 12/20/2020 00:23 Patient: [...] days -- Dispense 15 tablet. Refills: 0.Substitution permitted.[facility] [address] [place], [place] [phone]. .cyclobenzaprine 10 mg tablet Take 1 tablet every eight hours as needed for pain for 7 days -- prn musclespasm. Dispense 21 tablet. Refills: 0. Substitution permitted.[facility] #63 [address] [place], [place] [phone]. . -- Geetha Doll MD Name Value Range Interpretation Code Description Data Tiff rce(s) Supporting Document(s) ID Date Data Source [id number] 12/20/2020 12:29:00 AM EDT [facility] 1 Medication Administration Record [facility] Emergency Department [address] [place] [address] Phone #: ext- [phone] 12/20/2020 00:23 Patient: ARNOLDO RAMIREZ Sex: F : 1975 Age: 45yWeight: 86.1 kgHeight/Length: 62 inBMI: 34.8ALLERGIES: No Known Drug Allergy Date/Time Medication Administered Medication OrderedGiven FLEXERIL [PO] (CYCLOBENZAPRINE Flexeril PO 10 mg (NOW x1)00:49 12/20/2020 HCL)Rosa Bruno RYaneliNYaneli Dose: 10 mg Tablets POGiven PREDNISONE [PO] predniSONE PO 60 mg (NOW x1)00:49 12/20/2020 Dose: 60 mg Tablets POLoftusRosa, R.N.Given TORADOL [IM] (KETOROLAC Toradol IM 30 mg (NOW x1)00:49 12/20/2020 TROMETHAMINE)Rosa Bruno R.NYaneli Dose: 30 mg IM Name Value Range Interpretation Code Description Data Tiff rce(s) Supporting Document(s) ID Date Data Source [id number] 12/20/2020 12:29:00 AM EDT [facility] 1 General Instructions [facility] Emergency Department [address] [place] [address] Phone #: ext- [phone] 12/20/2020 00:23 Patient: [...] days -- Dispense 15 tablet. Refills: 0.Substitution permitted.[facility] [address] [place], [place] [phone]. FaxNumber: .cyclobenzaprine 10 mg tablet Take 1 tablet every eight hours as needed for pain for 7 days -- prn musclespasm. Dispense 21 tablet. Refills: 0. Substitution permitted.[facility] [address] [place], [place] [phone]. .Follow-up:Follow up with your doctor tomorrow even if well. Call for an appointment. Reason for referral: evaluation.Summary of care provided to patient via paper.Understanding of the discharge instructions verbalized by patient.Follow-up with: [facility], , , [address] [place] [address], ,[place], [address] Follow up in three days even if well. Call for an appointment. Reason for referral: evaluation. Summary ofcare provided to patient via paper. 2 General Instructions [facility] Emergency Department [address] [place] [address] Phone #: ext- [phone] 12/20/2020 00:23 [facility]: [id number] Sex: F : 1975 Age: 45y ADDITIONAL [...] your arms or legs (sciatica). 3 General [facility] Emergency Department [address] [place] [address] Phone #: izl- [phone] 12/20/2020 00:23 Patient: ARNOLDO RAMIREZ Sex: F [...] back pain, apply an 4 General Instructions [facility] Emergency Department [address] [place] [address] Phone #: ext- [phone] 12/20/2020 00:23 Patient: [...] or are takingother medicines. You may use [id number] medicine as directed on the bottle to [...] or loss of consciousness 5 General Instructions [facility] Emergency Department [address] [place] [address] Phone #: ext- [phone] 12/20/2020 00:23 Patient: [...] Numbness in the groin or genital area 2019 [employer]. [address] [place] [address]. All rights reserved. This information is not [...] also be called lumbarradiculopathy. 6 General Instructions [facility] Emergency Department [address] [place] [address] Phone #: ext- [phone] 12/20/2020 00:23 Patient: [...] therapy or more tests. 7 General Instructions [facility] Emergency Department [address] [place] [address] Phone #: ext- [phone] 12/20/2020 00:23 Patient: [...] or swelling over your back or spine [phone] [employer]. [address] [place] [address], [place] [address]. All rights reserved. This information is not intended as asubstitute for professional medical care. Always follow your healthcare professional's instructions. You have been given the following additional information: Back Pain (Acute or Chronic) Sciatica Limit lifting. No strenuous activity.(Electronically signed by Geetha Doll MD 12/20/2020 01:48) Name Value Range Interpretation Code Description Data Tiff rce(s) Supporting Document(s) ID Date Data Source [id number] 12/20/2020 12:29:00 AM EDT [facility] 1 Clinical Report - Nurses [facility] Emergency Department [address] [place] [address] Phone #: [phone]- [phone] 12/20/2020 00:23 Patient: ARNOLDO RAMIREZ Sex: F : 1975 Age: 45yTRIAGEArrived by EMS. ( pt c/o pain right leg chronic pain been going on for a few week pt. arrived via EMSwalked to the EMS stretcher).Acuity: LEVEL 4.Chief Complaint: RIGHT LOWER EXTREMITY PAIN.No injury occurred. Onset. (3 weeks).Treatment O AND M SUPERVISOR:None. --00:37 12/20/20 Rosa Bruno R.N.00:31 12/20/20. BP: [...] R.N..ADDITIONAL SURGERIES: 2 Clinical Report - Nurses [facility] Emergency Department [address] [place] [address] Phone #: ext- [phone] 12/20/2020 00:23 Patient: [id number] Sex: F : 1975 Age: 45y Abdominal [...] of allergic 3 Clinical Report - Nurses [facility] Emergency Department [address] [place] [address] Phone #: ext- [phone] 12/20/2020 00:23 Patient: [...] Patient verbalized understanding. Written instructions provided in Portuguese (Pt to use meds as prescribed and [...] rce(s) Supporting Document(s) ID Date Data Source [id number] 12/20/2020 12:29:00 AM EDT [facility] 1 Clinical Report - Physicians/Mid Levels [facility] Emergency Department [address] [place] [address] Phone #: ext- [phone] 12/20/2020 00:23 Patient: ARNOLDO RAMIREZ Sex: F [...] None. 2 Clinical Report - Physicians/Mid Levels [facility] Emergency Department [address] [place] [address] Phone #: ext- [phone] 12/20/2020 00:23 Patient: ARNOLDO RAMIREZ Sex: F : 1975 Age: 45y Allergies: [...] by ortho. will give [facility]. pt encouraged to return if worse or any new symptoms. Patient/family counseled. Disposition: Discharged. Condition: good and stable.CLINICAL IMPRESSION Chronic nontraumatic lumbar back pain. 3 Clinical Report - Physicians/Mid Levels [facility] Emergency Department [address] [place] [address] Phone #: ext- [phone] 12/20/2020 00:23 Patient: ARNOLDO RAMIREZ [facility]#: [id number] Sex: F : 1975 Age: 45yINSTRUCTIONS Limit [...] Dispense 15 tablet. Refills: 0. Substitution permitted. [facility] [address] [place], [place] [phone]. . cyclobenzaprine 10 mg tablet Take 1 tablet every eight hours as needed for pain for 7 days -- prn muscle spasm. Dispense 21 tablet. Refills: 0. Substitution permitted. [facility] [address] [place], [place] [phone]. Phone: . Follow-up: Follow up with your doctor tomorrow even if well. Call for an appointment. Reason for referral: evaluation. Summary of care provided to patient via paper. Understanding of the discharge instructions verbalized by patient. Follow-up with: [facility], , , [address] [address], , [place], [address] Follow up in three days even if well. Call for an appointment. Reason for referral: evaluation. Summary of care provided to patient via paper.(Electronically signed by Geetha Doll MD 12/20/2020 01:48) Name Value Range Interpretation Code Description Data Tiff rce(s) Supporting Document(s) ID Date Data Source [id number] 12/02/2020 12:00:00 AM EDT [facility] Name Value Range Interpretation Code Description Data Tiff rce(s) Supporting Document(s) SARS-CoV2 Rapid Antigen Negative [facility] This lab was ordered by [facility] and reported by [facility]. ID Date Data Source [id number] 11/03/2020 08:00:45 AM EDT [facility] TRANSVAGINAL [id number] RESULTInterpr eted by:Alex Graham MDULTRASOUND PELVIS TRANSABDOMINAL [...] rce(s) Supporting Document(s) ID Date Data Source [id number] 08/24/2020 05:42:00 AM EDT [facility] Patient: ARNOLDO RAMIREZ Observation Report - Physicians/Mid Levels [facility], [facility].VisitID: [id number] [place] [address] [phone], FRegistration Date/Time: 08/23/2020 22:47 Weight:85.2 kg (S). Height/Length:62 [...] URINE CULTURE 08/23/2020 12:00:00 AM EDT eCW1 ([facility]) Name Value Range Interpretation Code Description Data Tiff rce(s) Supporting Document(s) URINE CULTURE eCW1 ([facility]) ID Date Data Source UA URINALYSIS 08/23/2020 12:00:00 AM EDT eCW1 ([facility] to [facility]) Name Value Range Interpretation Code Description Data Tiff rce(s) Supporting Document(s) UA URINALYSIS eCW1 ([facility]) ID Date Data Source [id number] 08/05/2020 07:08:00 PM EDT [facility] Patient: ARNOLDO RAMIREZ Observation Report - Physicians/Mid Levels [facility].VisitID: [id number] [place] [address] [phone], [facility] Date/Time: 08/04/2020 00:43 Weight:88.4 kg (S). Height/Length:62 inches (S). BMI:35.7 PAST HISTORYProblems:Hernia. Additional Surgeries:Bowel Surgery..Hernia Repair.Tonsillectomy. Medications:traZODone HCl Oral 50 mg, daily at bedtime, last dose 7pm last night. Allergies:No Known Drug Allergy. FAMILY HISTORYNo significant family medical history. (Electronically signed by Emir Mcdaniels P.A. 08/04/2020 02:17) Name Value Range Interpretation Code Description Data Tiff rce(s) Supporting Document(s) ID Date Data Source [id number] 08/04/2020 05:34:00 AM EDT [facility] DATE OF EXAMINATION: 08/04/2020 1:09 EDT [...] 2 VIEW 07/16/2020 12:00:00 AM EDT eCW1 ([facility]) Name Value Range Interpretation Code Description Data Tiff rce(s) Supporting Document(s) PLZ CHEST 2 VIEW eCW1 ([facility]) ID Date Data Source [id number] 07/16/2020 12:00:00 AM EDT eCW1 ([facility] to [facility]) Name Value Range Interpretation Code Description Data Tiff rce(s) Supporting Document(s) 728 VITAMIN B12 LEVEL eCW1 ([facility]) 8.8 FOLATE eCW1 ([facility]) ID Date Data Source MAGNESIUM LEVEL 07/16/2020 12:00:00 AM EDT eCW1 ([facility] to [facility]) Name Value Range Interpretation Code Description Data Tiff rce(s) Supporting Document(s) 1.5 1.8-2.4 MAGNESIUM LEVEL eCW1 ([facility]) ID Date Data Source [id number] 07/16/2020 12:00:00 AM EDT eCW1 ([facility] to [facility]) Name Value Range Interpretation Code Description Data Tiff rce(s) Supporting Document(s) Albumin/Creatinine [Mass Ratio] in Urine 7.7 MALB URINE SIEMENS eCW1 ([facility]) Microalbumin/Creatinine [Mass Ratio] in Urine 28.8 CREATININE, URINE eCW1 ([facility]) Microalbumin/Creatinine [Ratio] in Urine 26.7 0.0-30.0 TAJ/CREAT RATIO eCW1 ([facility]) ID Date Data Source TSH 07/16/2020 12:00:00 AM EDT eCW1 ([facility]) Name Value Range Interpretation Code Description Data Tiff rce(s) Supporting Document(s) 2.500 0.358-3.740 THYROID STIMULATING HORM ONE eCW1 ([facility]) ID Date Data Source LIPID PANEL (CARDIAC RISK) 07/16/2020 12:00:00 AM EDT eCW1 ( [facility]) Name Value Range Interpretation Code Description Data Tiff rce(s) Supporting Document(s) Triglyceride [Mass/volume] in Serum or Plasma by calculation 282 <150 TRIGLYCERIDES LEVEL eCW1 ([facility]) Cholesterol in HDL [Moles/volume] in Serum or Plasma 31 >40 HDL CHOLESTEROL eCW1 ([facility]) Cholesterol [Moles/volume] in Serum or Plasma 124 <200 CHOLESTEROL LEVEL eCW1 ([facility]) Cholesterol in LDL [Mass/volume] in Serum or Plasma by calculation 37 <100 LDL CHOLESTEROL eC ([facility]) 93 NON-HDL-C eCW1 ([facility]) 4.000 <5 CHOLESTEROL RISK RATIO eCW1 ([facility]) ID Date Data Source [id number] 07/16/2020 12:00:00 AM EDT eCW1 ([facility]) Name Value Range Interpretation Code Description Data Tiff rce(s) Supporting Document(s) Hemoglobin A1c/Hemoglobin.total in Blood 12.2 HEMOGLOBIN A1c eCW1 ([facility]) ID Date Data Source FREE T4 07/16/2020 12:00:00 AM EDT eCW1 ([facility]) Name Value Range Interpretation Code Description Data Tiff rce(s) Supporting Document(s) 1.05 0.76-1.46 FREE T4 eCW1 ([facility]) ID Date Data Source Comprehensive Metabolic Profile (CMP) 07/16/2020 12:00:00 AM EDT eCW1 ([facility]) Name Value Range Interpretation Code Description Data Tiff rce(s) Supporting Document(s) 396 70-100 GLUCOSE, FASTING eCW1 ([facility]) 0.58 0.55-1.30 CREATININE FOR GFR eCW1 ([facility]) > 60.0 >58 GLOMERULAR FILTRATION RATE eCW 1 ([facility]) 15 7-18 BLOOD UREA NITROGEN eCW1 ([facility]) 4.1 3.5-5.1 POTASSIUM SERUM eCW1 ([facility]) 100 98-107 CHLORIDE LEVEL eCW1 ([facility]) 135 136-145 SODIUM LEVEL eCW1 ([facility]) 9.2 8.5-10.1 CALCIUM LEVEL eCW1 ([facility]) 26 21-32 CARBON DIOXIDE LEVEL eCW1 ([facility]) 24 7-37 AST/SGOT eCW1 ([facility]) 0.3 0.2-1.0 BILIRUBIN,TOTAL eCW1 ([facility]) 95 45-117 ALKALINE PHOSPHATASE eCW1 ([facility]) 29 12-78 ALT/SGPT eCW1 ([facility]) 0.9 1.2-2.2 ALBUMIN/GLOBULIN RATIO eCW1 ([facility]) 6.8 6.4-8.2 TOTAL PROTEIN eCW1 ([facility]) 3.3 3.2-5.2 ALBUMIN eCW1 ([facility]) ID Date Data Source CBC with Differential 07/16/2020 12:00:00 AM EDT eCW1 ([facility]) Name Value Range Interpretation Code Description Data Tiff rce(s) Supporting Document(s) 12.1 4.0-10.0 WHITE BLOOD COUNT eCW1 ([facility]) 4.42 4.00-5.40 RED BLOOD COUNT eCW1 ([facility]) 12.4 12.0-15.5 HEMOGLOBIN eCW1 ([facility]) 87.1 80.0-96.0 MEAN CORPUSCULAR VOLUME e CW1 ([facility]) 38.5 36.0-47.0 HEMATOCRIT eCW1 ([facility]) 32.2 32.0-36.5 MEAN CORPUSCULAR HGB CONC eCW1 ([facility]) 28.1 27.0-33.0 MEAN CORPUSCULAR HEMOGLOB IN eCW1 ([facility]) 13.1 11.5-14.5 RED CELL DISTRIBUTION WID TH eCW1 ([facility]) 77.5 36.0-66.0 NEUTROPHILS % eCW1 ([facility]) 433 150-450 PLATELET COUNT, AUTOMATED eCW1 ([facility]) 14.9 24.0-44.0 LYMPH % eCW1 ([facility]) 2.1 0.0-3.0 EOS % eCW1 ([facility]) 0.7 0.0-1.0 BASO % eCW1 ([facility]) 3.1 2.0-8.0 MONO % eCW1 ([facility]) 1.8 1.5-5.0 LYMPH # eCW1 ([facility]) 0.4 0.0-0.8 MONO # eCW1 ([facility]) 9.4 1.5-8.5 NEUTROPHILS # eCW1 ([facility]) 0.1 0.0-0.2 BASO # eCW1 ([facility]) 0.3 0.0-0.5 EOS # eCW1 ([facility]) ID Date Data Source [id number] 07/08/2020 03:32:00 PM EDT [facility] Name Value Range Interpretation Code Description Data Tiff rce(s) Supporting Document(s) SARS coronavirus 2 RNA [Presence] in Res piratory specimen by MELY with probe detection NEGATIVE [facility] This lab was ordered by [facility] a nd reported by [facility]. ID Date Data Source [id number] 07/03/2020 09:56:00 AM EDT [facility] Name Value Range Interpretation Code Description Data Tiff rce(s) Supporting Document(s) SARS-CoV-2 (COVID 19) NEGATIVE - SARS-CoV-2 (COVID19) [facility] This lab was ordered by [facility] a nd reported by [facility]. ID Date Data Source [id number] 06/29/2020 10:14:00 AM EDT [facility] [address] [place] [address] PHONE: [phone] FAX: [phone] Name .................. : HARLAN Benz Acct Number.................. : [id number] ROOM. ................. : TR-06 MR Number ................... : [id number] Stay type ............. : E/R Discharge Date......... ... : 06/26/20 Admit Date ......... : 06/26/20 Admit Phys .................... : COONEYNORM Date of ....... : 1975 Family Phys ................... : NO PCP Phone .................. : [phone] Age ................................ : 44 Film# .................. .:[id number] Sex ................................. : F Unsigned transcriptions are preliminary reports and do not represent a medical or legal document [employer] VENOUS 31999 COMPLETE:06/26/20 12:37 ADB 9539 Reason(s): Pain, Limb [...] via fax Copy for: EMERGENCY DEPT via mode Copy for: 710 MED REC DISCHARGED Page 1 of 1 Name Value Range Interpretation Code Description Data Tiff rce(s) Supporting Document(s) ID Date Data Source [id number] 06/26/2020 10:22:00 AM EDT [facility] 1 OrderSheet [facility] Emergency Department [address] [place] [address] Phone #: ext- [phone] 06/26/2020 10:17 Patient: ARNOLDO RAMIREZ Sex: F : 1975 Age: 44yWEIGHT:90.7 kg (S) HEIGHT:62 inches (S) BMI:36.6ALLERGIES: No Known Drug AllergyCHIEF COMPLAINT: painDIAGNOSIS: Vaginitis, Hypertensive disorder, Diabetes mellitus, Muscle strainLAB ORDERSOrder Description Priority Entered Acknowledged InitialedUrinalysis (Clean STAT 10:45 06/26/2020 10:55 Sorbero,Catch) Kane TRUJILLO;Beta-HCG, Qual STAT 10:45 06/26/2020 10:55 Sorbrob,Urine Kane TRUJILLO;DIAGNOSTIC STUDY ORDERSOrder Description Priority Entered Acknowledged InitialedUS Lower Ext STAT 10:45 06/26/2020 10:55 Sorbrob,Venous Left Kane Garcia R.N.(Oxygen?(No)) PA; Reason for Study: Pain, LimbMEDICATION/IV/DRIP/FLUID ORDERSOrder Description Priority Entered Acknowledged InitialedToradol IM 60 mg 10:45 06/26/2020 10:55 Kane Tanner R.N.;Tylenol PO 1000 10:45 06/26/2020 10:55 Flores,mg Kane TRUJILLO;Valium PO 5 mg 10:45 06/26/2020 10:55 Kane Tanner R.N.;GENERAL ORDERSOrder Description Priority Entered Acknowledged InitialedAccucheck 12:23 06/26/2020 12:47 Jenna Johnson RN PA; 2 OrderSheet [facility] Emergency Department [address] [place] [address] Phone #: ext- [phone] 06/26/2020 10:17 Patient: ARNOLDO RAMIREZ Sex: F : 1975 Age: 44y[Electronically signed by Jose Tanner R.N. (14:58 06/26/2020)][Electronically signed by Kane Conteh (10:28 06/27/2020)][Electronically locked by Jose Tanner R.N. (14:58 06/26/2020)] Name Value Range Interpretation Code Description Data Tiff rce(s) Supporting Document(s) ID Date Data Source [id number] 06/26/2020 10:22:00 AM EDT [facility] 1 Medication Reconciliation Report [facility] Emergency Department [address] [place] [address] Phone #: ext- [phone] 06/26/2020 10:17 Patient: [...] days -- Dispense 90 capsule.Refills: 0. Substitution permitted.[facility] - [address] [facility] ; [place], [place] [phone]. .methocarbamol 500 mg tablet Take 1 tablet three times a day for 10 days -- Dispense 30 tablet. Refills:0. Substitution pe rmitted.[facility] #10 - [address] [place], [place] [id number]. .IBU 400 mg tablet Take 1 tablet three times a day for 15 days -- Dispense 45 tablet. Refills: 0.Substitution permitted.[facility] #58 - [address] [place], [place] [phone]. FaxNumber: [phone].fluconazole 150 mg tablet Take 1 tablet single dose as needed for 1 days -- May repeat in 1 week if s/s 2 Medication Reconciliation Report [facility] Emergency Department [address] [place] [address] Phone #: ext- [phone] 06/26/2020 10:17 Patient: ARNOLDO RAMIREZ Sex: F : 1975 Age: 44ypersist. Dispense 2 tablet. Refills: 0. Substitution permitted.[facility] #92 - [address] [place], [place] [phone]. . -- RONNIE Conroy Name Value Range Interpretation Code Description Data Tiff rce(s) Supporting Document(s) ID Date Data Source [id number] 06/26/2020 10:22:00 AM EDT [facility] 1 Medication Administration Record [facility] Emergency Department [address] [place] [address] Phone #: ext- [phone] 06/26/2020 10:17 Patient: ARNOLDO RAMIREZ Sex: F : 1975 Age: 44yWeight: 90.7 kgHeight/Length: 62 inBMI: 36.6ALLERGIES: No Known Drug Allergy Date/Time Medication Administered Medication OrderedGiven TORADOL [IM] (KETOROLAC Toradol IM 60 mg10:55 06/26/2020 TROME THAMINE)Jose Tanner RSaud Dose: 60 mg IMGiven TYLENOL [PO] (APAP) Tylenol PO 1000 mg10:55 06/26/2020 Dose: 1000 mg Tablets POSJose martinez RYaneliN.Given VALIUM [PO] (DIAZEPAM) Valium PO 5 mg10:55 06/26/2020 Dose: 5 mg Tablets Jose Molina R.N. Name Value Range Interpretation Code Description Data Tiff rce(s) Supporting Document(s) ID Date Data Source [id number] 06/26/2020 10:22:00 AM EDT [facility] 1 General Instructions [facility] Emergency Department [address] [place] [address] Phone #: ext- [phone] 06/26/2020 10:17 Patient: ARNOLDO RAMIREZ Sex: F : 1975 Age: 44yMuscle strain [...] days -- Dispense 90 capsule.Refills: 0. Substitution permitted.[facility] - [address] [place] [address]. .methocarbamol 500 mg tablet Take 1 tablet three times a day for 10 days -- Dispense 30 tablet. Refills:0. Substitution permitted.[facility] - [address] [place], [place] [phone]. .IBU 400 mg tablet Take 1 tablet three times a day for 15 days -- Dispense 45 tablet. Refills: 0.Substitution permitted.[facility]45 - [address] [place], [place] [phone]. .fluconazole 150 mg tablet Take 1 tablet single dose as needed for 1 days -- May repeat in 1 week if s/spersist. Dispense 2 tablet. Refills: 0. Substitution permitted.[facility] - [address] [place], [place] [id number]. .Follow-up: 2 General Instructions [facility] Emergency Department [address] [place] [address] Phone #: ext- [phone] 06/26/2020 10:17 Patient: ARNOLDO RAMIREZ Sex: F : 1975 Age: 44yFollow up with your healthcare provider [phone] call [facility] for an appointment Sunday.Call for the [...] alternate ice and heat. You may use lbfn-vwl-vppgxor pain medicine to control pain, unless another [...] Pain or swelling increases 3 General Instructions [facility] Emergency Department [address] [place] [address] Phone #: ext- [phone] 06/26/2020 10:17 Patient: ARNOLDO RAMIREZ Sex: F : 1975 Age: 44y [phone] [employer]. [address] [place] [address], [place], [place] [address]. All rights reserved. This information is not [...] treatment your provider advised. 4 General Instructions [facility] Emergency Department [address] [place] [address] Phone #: [phone] rrq- [phone] 06/26/2020 10:17 Patient: ARNOLDO RAMIREZ Sex: F [...] face Sudden trouble with speech or vision [employer]. [address] [place] [address]. All rights reserved. This information is not [...] in the medical record. 5 General Instructions [facility] Emergency Department [address] [place] [address] Phone #: ext- [phone] 06/26/2020 10:17 Patient: ARNOLDO RAMIREZ Sex: F : 1975 Age: 44yBlood pressure [...] buy blood pressure monitors at most pharmacies.The [place] [employer] advises the following guidelines for [...] your blood pressure monitor 6 General Instructions [facility] Emergency Department [address] [place] [address] Phone #: ext- [phone] 06/26/2020 10:17 Patient: ARNOLDO RAMIREZ [facility]#: [id number] Sex: F : 1975 Age: 44y has [...] attack, heart failure, kidney disease, and stroke.Call [phone] if you have any of these: Blood [...] Dizziness or dizziness with spinning feeling (vertigo) [phone] [employer]. [address] [place] [address]. All rights reserved. This information is not intended as asubstitute for professional medical care. Always follow your healthcare professional's instructions.Yeast Infection (Boone Vaginal Infection) 7 General Instructions [facility] Emergency Department [address] [place] [address] Phone #: ext- [phone] 06/26/2020 10:17 Patient: [...] Note: Don't try to treat yourself using yktw-pgb-ykwnwvv products without talking to your provider first. He or she will let you know if this is a good option for you. Ask your provider what steps you can take to help reduce your risk of h aving a yeast infection 8 General Instructions [facility] Emergency Department [address] [place] [address] Phone #: ext- [phone] 06/26/2020 10:17 Patient: ARNOLDO RAMIREZ Sex: F : 1975 Age: 44y in [...] as a rash, joint pain, or sores. [phone] [employer]. [address] [place] [address], [place] [address]. All rights reserved. This information is not [...] rce(s) Supporting Document(s) ID Date Data Source [id number] 06/26/2020 10:22:00 AM EDT [facility] 1 Clinical Report - Nurses [facility] Emergency Department [address] [place] [address] Phone #: [phone] yxu- [phone] 06/26/2020 10:17 Patient: ARNOLDO RAMIREZ Sex: F [...] denies any other symptoms. Pt went to [facility] and stated "i waited for 40 minutes and someone signed me out". Pt then went to [facility] "they were gonna put me up front but i can't stand the pain"; [facility] 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 SEPSIS SCREEN NEGATIVE. No suspected or confirmedsigns of infection present. (10:24 06/26/2020). --10:24 06/26/20 Josselin Rodas R.N.10:18 06/26/20. BP: 216/119. MAP: 151. HR: 63. RR: 16. O2 saturation: 100% on room air. Temp: 99.6 F(oral). Pain level now: 10/12. --10:24 06/26/20 Josselin Rodas R.N.Weight: 90.7 kg stated. Height/Length: 62 inches Per Patient. BMI: 36.6. --10:18 06/26/20 Josselin Rodas R.N.MedicationsNone. --10:21 06/26/20 Josselin Rodas R.N.AllergiesNo Known Drug Allergy. --10:21 06/26/20 Josselin Rodas R.N.PROBLEMS:Bipolar Disorder. --10:44 06/26/20 Georgie Conroy following entry was modified by RONNIE Conroy, 10:44 06/26/20Bipolar Disorder. --10:21 06/26/20 Josselin Rodas R.N..Medication/allergy information source: the patient. --10:24 06/26/20 Josselin Rodas R.N. 2 Clinical Report - Nurses [facility] Emergency Department [address] [place] [address] Phone #: ext- [phone] 06/26/2020 10:17 Patient: [...] on patient. --10:24 06/26/20 Josselin Rodas R.N.PHYSICAL RNXSFCUVDV17:20 06/26/20. To room via stretcher.GENERAL / NEURO / PSYCH: Oriented X 4. Alert. Appears in pain, anxious and in distress.EXTREMITIES: Extremity pulses are within normal limits. Extremities exhibit normal ROM.Neuro-vascular status intact to the extremity. Normal gait. Left thigh: tenderness, swelling and deformitylocated in the lateral aspect of mid thigh. 3 Clinical Report - Nurses [facility] Emergency Department [address] [place] [address] Phone #: ext- [phone] 06/26/2020 10:17 Patient: [...] Tanner R.N. 10:55 06/26/20. [facility] tech. --10:56 06/26/20 Jose Tanner R.N. 11:21 06/26/20. Patient returned from sonogram by wheelchair with phlebotomy support tech. --11:21 06/26/20 Jose Tanner R.N. 11:29 06/26/20. [...] on. Patient ready for evaluation- PA notified. --11:30 06/26/20 Jose Tanner R.N. Reassurance given. Reassessment acuity: [...] arm, manually, while lying. PA notified. MAP: 112. --12:29 4 Clinical Report - Nurses [facility] Emergency Department [address] [place] [address] Phone #: ext- [phone] 06/26/2020 10:17 Patient: ARNOLDO RAMIREZ [facility]#: [id number] Sex: F : 1975 Age: 44y 06/26/20 [...] Patient verbalized understanding. Written instructions provided in Portuguese. The patient was discharged by the physician social work assistant. She was discharged home. She left [...] rce(s) Supporting Document(s) ID Date Data Source [id number] 06/26/2020 10:22:00 AM EDT [facility] 1 Clinical Report - Physicians/Mid Levels [facility] Emergency Department [address] [place] [address] Phone #: ext- [phone] 06/26/2020 10:17 [id number] Sex: F : 1975 Age: 44y Time [...] denies any other symptoms. Pt went to [facility] this morning and stated "i waited for 40 minutes and someone signed me out". Pt then went to [facility] and "they were gonna put me up front but i can't stand the pain"; Pt called EMS to be brought to this facility. Pt went to [facility] last week for the same pain and [...] distress. 2 Clinical Report - Physicians/Mid Levels [facility] Emergency Department [address] [place] [address] Phone #: ext- [phone] 06/26/2020 10:17 [id number] Sex: F : 1975 Age: 44y Eyes: [...] Units (Reference) 3 Clinical Report - Physicians/Mid Levels [facility] Emergency Department [address] [place] [address] Phone #: ext- [phone] 06/26/2020 10:17 Patient: ARNOLDO RAMIREZ Sex: F : 1975 Age: 44y HCG URINE QUAL NEGATIVE (NORMAL: NEGAT HCG URINE QL REENTER NEGATIVE (NORMAL: NEGAT { KIT LOT # [id number] ){ KIT EXP DATE 01/02/21 ){ PROCEDURAL CONTROL VALID ).PROGRESS AND PROCEDURESCourse of Care: 12:32 Jun 26 2020. (Discussed Accucheck of 294, pt will follow up whis week with PCPfor evaluation of HTN and Diabetes, pt needs further follow up for leg pain. She is agreeable with dx and txplan.). Patient counseled in person regarding the patient's stable condition, test results, diagnosis and need for follow-up. Patient agrees with plan of care. 12:33 Jun 24 2021. Disposition: Discharged home in good and improved [...] Dispense 90 capsule. Refills: 0. Substitution permitted. [facility] #47 - [address] [place], [place] [phone]. . methocarbamol 500 mg tablet Take 1 tablet three times a day for 10 days -- Dispense 30 tablet. Refills: 4 Clinical Report - Physicians/Mid Levels [facility] Emergency Department [address] [place] [address] Phone #: ext- [phone] 06/26/2020 10:17 Patient: ARNOLDO RAMIREZ Sex: F : 1975 Age: 44y 0. Substitution permitted. [facility]60 - [address] [place], [place] [phone]. . IBU 400 mg tablet Take 1 tablet three times a day for 15 days -- Dispense 45 tablet. Refills: 0. Substitution permitted. [facility]33 - [address] [place], [place] [phone]. . fluconazole 150 mg tablet Take 1 tablet single dose as needed for 1 days -- May repeat in 1 week if s/s persist. Dispense 2 tablet. Refills: 0. Substitution permitted. Pharmacy - [facility] - [address] [facility] ; [place], [place] [id number]. Phone: . Follow-up: Follow up with your healthcare provider [phone] call [facility] for an appointment Sunday. Call for the next available appointment. Reason for referral: evaluation, treatment and Evaluate Hypertenison, Diabetes and Leg Pain. Summary of care provided to patient. Understanding of the discharge instructions verbalized by patient.(Electronically signed by RONNIE Conroy 06/27/2020 10:28) Name Value Range Interpretation Code Description Data Tiff rce(s) Supporting Document(s) ID Date Data Source [id number] 06/26/2020 11:37:00 AM EDT [facility] Name Value Range Interpretation Code Description Data Tiff rce(s) Supporting Document(s) [facility] COL[facility] yellow NORMAL: Yellow [facility] CLARITY hazy NORMAL: Clear [facility] Specific gravity of Urine by Test strip 1.015 1.001 - 1.030 [facility] pH 5 5 - 9 [facility] al Glucose [Mass/volume] in Urine by Test strip 1000 NORMAL: Negat chavez A [facility] Bilirubin.total [Presence] in Urine by Test strip NEG NORMAL: Negative [facility] Ketones [Presence] in Urine by Test strip 15 NORMAL: Negative [facility] Protein [Mass/volume] in Urine by Test strip NEG NORMAL: Negat chavez [facility] Nitrite [Presence] in Urine by Test strip NEG NORMAL: Negative [facility] BLOOD 50 NORMAL: Negative [facility] Leukocyte esterase [Presence] in Urine by Test strip NEG GEETHA L: Negative [facility] Urobilinogen [Mass/volume] in Urine by Test strip NOR less alli n 1.0 mg/dL [facility] MICROSCOPIC See Below [facility] WBC None Seen NORMAL: NONE SEEN [facility] Erythrocytes [#/volume] in Urine by Test strip 0 - 1 NORMAL: NON E SEEN [facility] EPITHELIAL MANY NORMAL: NONE SEEN A [facility] YEAST Few A [facility] BUDDING ID Date Data Source [id number] 06/26/2020 11:29:00 AM EDT [facility] Name Value Range Interpretation Code Description Data Tiff rce(s) Supporting Document(s) HCG URINE QUAL NEGATIVE NORMAL: NEGATIVE [facility] HCG URINE QL REENTER NEGATIVE NORMAL: NEGATIVE [facility] { KIT LOT # [id number] ){ KIT EXP DATE 01/02/21 ){ PROCEDURAL CONTROL VALID ) ID Date Data Source [id number] 06/21/2020 03:03:00 AM EDT [facility] ED Physician Documentation NAME: ARNOLDO RAMIREZ : 1975 AGE: 44 MR#: [id number] SERVICE DATE: 06/21/[address]: Kylah Cerna MD PRIMARY CARE DR: No Family PHYS Provided ROOM#: [facility] (Adult, General) General Chief Complaint: Musculoskeletal [...] Dose Route Start Last Admin Trade Name Freq PRN Reason Stop Dose Admin Dexamethasone Sodium [...] D: ANNELISE 06/21/20 0303 T: ANNELISE 06/21/20 0303 CC: No Family PHYS Provided Name Value Range Interpretation Code Description Data Tiff rce(s) Supporting Document(s) ID Date Data Source [id number] 06/21/2020 01:56:00 AM EDT [facility] 1 Medication Reconciliation Report [facility] Emergency Department [address] [place] [address] Phone #: ext- [phone] 06/21/2020 01:54 Patient: [...] rce(s) Supporting Document(s) ID Date Data Source [id number] 06/21/2020 01:56:00 AM EDT [facility] 1 Medication Administration Record [facility] Emergency Department [address] [place] [address] Phone #: ext- [phone] 06/21/2020 01:54 Patient: ARNOLDO RAMIREZ Sex: F : 1975 Age: 44yWeight: (not available)Height/Length: (not available)BMI: (not available)ALLERGIES: No Known Drug AllergyDate/Time Medication Administered Medication Ordered Name Value Range Interpretation Code Description Data Tiff rce(s) Supporting Document(s) ID Date Data Source [id number] 06/21/2020 01:56:00 AM EDT [facility] 1 Clinical Report - Nurses [facility] Emergency Department [address] [place] [address] Phone #: ext- [phone] 06/21/2020 01:54 Patient: ARNOLDO RAMIREZ Sex: F : 1975 Age: 44yTRIAGE Arrived by private vehicle. Historian: patient. Chief Complaint: (LEFT LEG PAIN). No injury occurred. Onset. (3 weeks ago). ( Patient reports pain down her whole left leg from hip to foot for past 3 weeks. She was seen at [facility] prior to coming to this facility for [...] Hiatal Hernia. Hypertension. --01:58 06/21/20 Roseanne Ricardo.PHYSICAL [id number]:58 06/21/20.GENERAL / NEURO / PSYCH: ( Unable to complete assessment, patient left AMA). --02:03 06/21/20Roseanne Ricardo.DISPOSITION / DISCHARGE The patient left the Emergency Department before triage, without being seen by a physician and 2 Clinical Report - Nurses [facility] Emergency Department [address] [place] [address] Phone #: ext- [phone] 06/21/2020 01:54 Patient: [...] Departure time: 02:02 06/21/2020. --02:02 06/21/20 Roseanne Rciardo.Locked/Released at 06/21/2020 02:03 by Roseanne Ricardo Name Value Range Interpretation Code Description Data Tiff rce(s) Supporting Document(s) ID Date Data Source [id number] 05/24/2020 12:00:00 PM EDT [facility] (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) Name Value Range Interpretation Code Description Data Tiff rce(s) Supporting Document(s) TP Reflex HPV ASCUS Laboratory test result [facility] (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) SPECIMEN PART------ A. Cervical, Endocervical, ThinPrep Pap (Pump Operator) CYTOLOGY HX-------- Date of Last Menstrual Period: 05/12/20 Other Information:Previous Normal Pap: 01/22/18 FINAL DIAGNOSIS---- INTERPRETATION: Negative for Intraepithelial Lesion or Malignancy. SPECIMEN ADEQUACY:Satisfactory for evaluation. Endocervical/transformation zone component present. TP Reflex HPV ASCUS Laboratory test result [facility] (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) ID Date Data Source [id number] 05/11/2020 12:46:00 AM EST [facility] 1 OrderSheet [facility] Emergency Department [address] [place] [address] Phone #: ext- [phone] 05/11/2020 00:45 Patient: ARNOLDO RAMIREZ Sex: F [...] Campbell M.D. (06:50 05/11/2020)][Electronically locked by Erin Kruse R.N. (02:19 05/11/2020)] Name Value Range Interpretation Code Description Data Tiff rce(s) Supporting Document(s) ID Date Data Source [id number] 05/11/2020 12:46:00 AM EST [facility] 1 Medication Reconciliation Report [facility] Emergency Department [address] [place] [address] Phone #: [phone] ext- [phone] 05/11/2020 00:45 Patient: ARNOLDO RAMIREZ [facility]#: [id number] Sex: F : 1975 Age: 44yWeight: 90.7 kgHeight/Length: 66 in.BMI: 32.3ALLERGIES: No Known Drug AllergyThe patient's Home Medications are listed below:NONE.The source(s) of the original Home Medication information:Not obtained.The following Medications were given to the patient in the Emergency Department:Benadryl [IM] IM 50 mg, administered: 01:1Prednisone [PO] PO 40 mg, administered: :1Pepcid [PO] PO 20 mg, administered: 01:05/11/2020The following Medications were prescribed to the patient:Monistat 7 2 % vaginal cream Apply 1 applicatorful at bedtime for 7 days -- Dispense 1 box. Refills: 0.Substitution permitted.[facility] - [address] [place], [place] [phone]. .Benadryl Allergy 25 mg tablet Take 1 tablet four times a day for 5 days -- Dispense 20 tablet. Refills: 1.Substitution permitted.[facility] - [address] [place], [place] [id number]. .prednisone 20 mg tablet Take 2 tablet once a day for 5 days -- Dispense 10 tablet. Refills: 0.Substitution permitted.[facility]43 - [address] [place], [place] [phone]. FaxNumber: .Pepcid 20 mg tablet Take 1 tablet twice a day for 5 days -- Dispense 10 tablet. Refills: 0. Substitution 2 Medication Reconciliation Report [facility] Emergency Department [address] [place] [address] Phone #: ext- [phone] 05/11/2020 00:45 Patient: ARNOLDO RAMIREZ Sex: F : 1975 Age: 44ypermitted.Pharmacy - [facility] - [address] [place], [place] [id number]. . -- Leah Campbell M.D. Name Value Range Interpretation Code Description Data Tiff rce(s) Supporting Document(s) ID Date Data Source [id number] 05/11/2020 12:46:00 AM EST [facility] 1 Medication Administration Record [facility] Emergency Department [address] [place] [address] Phone #: ext- [phone] 05/11/2020 00:45 Patient: ARNOLDO RAMIREZ Sex: F : 1975 Age: 44yWeight: 90.7 kgHeight/Length: 66 inBMI: 32.3ALLERGIES: No Known Drug Allergy Date/Time Medication Administered Medication OrderedGiven BENADRYL [IM] (DIPHENHYDRAMINE Benadryl IM 50 mg01:10 05/11/2020 HCL)Litzy Mathew RYaneliNYaneli Dose: 50 mg IMGiven PREDNISONE [PO] predniSONE PO 40 mg01:05/11/2020 Dose: 40 mg Tablets Litzy Escobedo R.N.Given PEPCID [PO] (FAMOTIDINE) Pepcid PO 20 mg (NOW x1)01:11 05/11/2020 Dose: 20 mg Tablets Litzy Escobedo R.N. Name Value Range Interpretation Code Description Data Tiff rce(s) Supporting Document(s) ID Date Data Source [id number] 05/11/2020 12:46:00 AM EST [facility] 1 General Instructions [facility] Emergency Department [address] [place] [address] Phone #: ext- [phone] 05/11/2020 00:45 Patient: ARNOLDO RAMIREZ Sex: F [...] days -- Dispense 1 box. Refills: 0.Substitution permitted.[facility] - [address] [place], [place] [phone]. .Benadryl Allergy 25 mg tablet Take 1 tablet four times a day for 5 days -- Dispense 20 tablet. Refills: 1.Substitution permitted.[facility]66 - [address] [place], [place] [id number]. .prednisone 20 mg tablet Take 2 tablet once a day for 5 days -- Dispense 10 tablet. Refills: 0.Substitution permitted.[facility] - [address] [place], [place] [phone]. .Pepcid 20 mg tablet Take 1 tablet twice a day for 5 days -- Dispense 10 tablet. Refills: 0. Substitutionpermitted.[facility] #79 - [address] [place], [place] [phone]. Phone: 2 General Instructions [facility] Emergency Department [address] [place] [address] Phone #: ext- [phone] 05/11/2020 00:45 Patient: [facility] [facility] [id number] Sex: F : 1975 Age: 44y . [...] antibiotics or control pills 3 General Instructions [facility] Emergency Department [address] [place] [address] Phone #: ext- [phone] 05/11/2020 00:45 Patient: ARNOLDO RAMIREZ Sex: F : 1975 Age: 44y Diabetes [...] Note: Don't try to treat yourself using hizy-tco-lhyghma products without talking to your provider first. [...] as a rash, joint pain, or sores. [id number] [employer]. [address] [place] [address], [place] [address]. All rights reserved. This information is not intended as asubstitute for professional medical care. Always follow your healthcare professional's instructions.Established High Blood Pressure 4 General Instructions [facility] Emergency Department [address] [place] [address] Phone #: ext- [phone] 05/11/2020 00:45 [facility]: [id number] Sex: F : 1975 Age: 44yHigh blood [...] end your need for 5 General Instructions [facility] Emergency Department [address] [place] [address] Phone #: ext- [phone] 05/11/2020 00:45 Patient: [facility]OLDO [id number] Sex: F : 1975 Age: 44ymedicines in [...] that stimulate the heart. This includes many ygzs-kqs-gqxnkhn cold and sinus decongestant pills and sprays, as well as diet pills. Check the warnings about high blood pressure on the label. Before buying any dviq-zut-wcrefej medicines or supplements, always ask the pharmacist [...] most pharmacies.Using a home blood pressure monitorThe [place] Heart Association advises the following guidelines for home blood pressure monitoring: Don't smoke or drink coffee for 30 minutes before taking your blood pressure. 6 General Instructions [facility] Emergency Department [address] [place] [address] Phone #: ext- [phone] 05/11/2020 00:45 Patient: [...] yourhome blood pressure readings to the appointment.Call [id number] you have any of these: Blood pressure of 180/120 or higher Chest pain or shortness of breath Weakness of an arm or leg or one side of the face Problems speaking or seeingWhen to get medical adviceCall your healthcare provider right away if any of these occur: Severe headache Throbbing or rushing sound in the ears 7 General Instructions [facility] Emergency Department [address] [place] [address] Phone #: [phone] ank- [phone] 05/11/2020 00:45 Patient: ARNOLDO RAMIREZ Sex: F : 1975 Age: 44y Nosebleed Sudden severe pain in your belly (abdomen) Extreme drowsiness, confusion, or fainting Dizziness or spinning feeling (vertigo) [id number] [employer]. [address] [place] [address]. All rights reserved. This information is not intended as asubstitute for professional medical care. Always follow your healthcare professional's instructions. You have been given the following additional information: Yeast Infection, Vaginal ([place] Vaginal Infection) Hypertension, Established(Electronically signed by Leah Campbell M.D. 05/11/2020 06:50) Name Value Range Interpretation Code Description Data Tiff rce(s) Supporting Document(s) ID Date Data Source [id number] 05/11/2020 12:46:00 AM EST [facility] 1 Clinical Report - Nurses [facility] Emergency Department [address] [place] [address] Phone #: ext- [phone] 05/11/2020 00:45 Patient: [...] and denies abnormal discharge. [facility] tonight for these symptoms and left before being seen. She is unsure if she is and also reports having heavy vaginal bleeding. She also reports being in the process of delicing.).Treatment O AND M SUPERVISOR:Seen within the last 24 hours at another facility in the ED. (left before being seen at [facility]).SEPSIS SCREEN: SIRS SCREEN NEGATIVE: heart rate greater [...] week long. 2 Clinical Report - Nurses [facility] Emergency Department [address] [place] [address] Phone #: ext- [phone] 05/11/2020 00:45 Patient: [id number] Sex: F : 1975 Age: 44y SOCIAL [...] Skin is warm and dry. --01:05 05/11/20 Litzy Mathew R.N.NURSING PROGRESS NOTESPatient gowned. Reassurance given. Two [...] Mathew R.N. 3 Clinical Report - Nurses [facility] Emergency Department [address] [place] [address] Phone #: ext- [phone] 05/11/2020 00:45 Patient: [id number] Sex: F : 1975 Age: 44y 01:11 [...] Patient verbalized understanding. Written instructions provided in Portuguese. The patient was discharged home and accomp anied by taxi. She left ambulatory and via private vehicle. 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 --01:47 05/11/20 Erin Kruse R.N. 01:42 05/11/20. [...] rce(s) Supporting Document(s) ID Date Data Source [id number] 05/11/2020 12:46:00 AM [facility] 1 Clinical Report - Physicians/Mid Levels [facility] Emergency Department [address] [place] [address] Phone #: ext- [phone] 05/11/2020 00:45 Patient: ARNOLDO RAMIREZ Sex: F : 1975 Age: 44y Time Seen: 01:02 05/11/2020; initial patient contact. Arrived- By ambulance. Historian- patient. Disposition decision: 01:19 05/11/2020.HISTORY OF PRESENT ILLNESS Chief Complaint: ITCHING. vaginal itching. A possible cause has been identified (soap from hotel in [place]). This started 3 days ago and is [...] Drug Allergy. 2 Clinical Report - Physicians/Mid [facility] Emergency Department [address] [place] [address] Phone #: ext- [phone] 05/11/2020 00:45 Patient: [...] BP upon d/c; pt didn't f/u w [facility]TER HELPER; pt is advised to f/u w [facility]TER HELPER for Tx of her HTN. Patient counseled [...] hypertension. 3 Clinical Report - Physicians/Mid Levels [facility] Emergency Department [address] [place] [address] Phone #: ext- [phone] 05/11/2020 00:45 Patient: [...] days -- Dispense 1 box. Refills: 0.Substitution permitted.[facility] - [address] [address]. FaxNumber: .Benadryl Allergy 25 mg tablet Take 1 tablet four times a day for 5 days -- Dispense 20 tablet. Refills: 1.Substitution permitted.[facility] - [address] [address]. .prednisone 20 mg tablet Take 2 tablet once a day for 5 days -- Dispense 10 tablet. Refills: 0.Substitution permitted.[facility] - [address] [place] [address], [place] [phone]. .Pepcid 20 mg tablet Take 1 tablet twice a day for 5 days -- Dispense 10 tablet. Refills: 0. Substitutionpermitted.[facility] - [address], [place] [phone]. .Follow-up:Return to the emergency department as needed. Follow up with your healthcare provider in five dayseven if well. Call for an appointment. Reason for referral: evaluation and treatment. Summary of careprovided to patient via paper. 4 Clinical Report - Physicians/Mid Levels [facility] Emergency Department [address] [place] [address] Phone #: ext- [phone] 05/11/2020 00:45 Patient: [facility]DO [id number] Sex: F : 1975 Age: 44y Understanding of the discharge instructions verbalized by patient. Expected course of illness, discharge instructions, activity level, diet, prescriptions x4, follow-up appointment and risks and benefits of treatment reviewed with patient and understanding verbalized. Agrees to plan of care.(Electronically signed by Leah Campbell M.D. 05/11/2020 06:50) Name Value Range Interpretation Code Description Data Tiff rce(s) Supporting Document(s) ID Date Data Source [id number] 02/08/2020 12:53:00 AM EST [facility] Name Value Range Interpretation Code Description Data Tiff rce(s) Supporting Document(s) SARS coronavirus 2 RNA [Presence] in Res piratory specimen by MELY with probe detection [facility] This lab was ordered by [facility] a nd reported by [facility]. ID Date Data Source [id number] 02/07/2020 09:06:00 AM EST [facility] Name Value Range Interpretation Code Description Data Tiff rce(s) Supporting Document(s) SARS coronavirus 2 RNA [Presence] in Res piratory specimen by MELY with probe detection [facility] This lab was ordered by [facility] a nd reported by [facility]. Procedure Social History Code Duration Value Status Description Data Source(s ) Smoking 10/26/2020 12:00:00 AM EDT Current Smoker completed Curre nt Smoker eCW1 ([facility]) Smoking 10/26/2020 12:00:00 AM EDT Current Smoker completed Curre nt Smoker eCW1 ([facility]) Smoking 10/26/2020 12:00:00 AM EDT Current Smoker completed Curre nt Smoker eCW1 ([facility]) Smoking 10/26/2020 12:00:00 AM EDT Current Smoker completed Curre nt Smoker eCW1 ([facility]) Smoking 10/26/2020 12:00:00 AM EDT Current Smoker completed Curre nt Smoker eCW1 ([facility]) Smoking 10/12/2020 12:00:00 AM EDT Current Smoker completed Curre nt Smoker eCW1 ([facility]) Smoking 10/12/2020 12:00:00 AM EDT Current Smoker completed Curre nt Smoker eCW1 ([facility]) Smoking 08/26/2020 12:00:00 AM EDT Current Smoker completed Curre nt Smoker eCW1 ([facility]) Smoking 08/26/2020 12:00:00 AM EDT Current Smoker completed Curre nt Smoker eCW1 ([facility]) Smoking 08/26/2020 12:00:00 AM EDT Current Smoker completed Curre nt Smoker eCW1 ([facility]) Smoking 08/26/2020 12:00:00 AM EDT Current Smoker completed Curre nt Smoker eCW1 ([facility]) Smoking 08/26/2020 12:00:00 AM EDT Current Smoker completed Curre nt Smoker eCW1 ([facility]) Smoking 08/26/2020 12:00:00 AM EDT Current Smoker completed Curre nt Smoker eCW1 ([facility]) Smoking 08/26/2020 12:00:00 AM EDT Current Smoker completed Curre nt Smoker eCW1 ([facility]) Smoking 08/23/2020 12:00:00 AM EDT Current Smoker completed Curre nt Smoker eCW1 ([facility]) Smoking 08/23/2020 12:00:00 AM EDT Current Smoker completed Curre nt Smoker eCW1 ([facility]) Smoking 08/23/2020 12:00:00 AM EDT Current Smoker completed Curre nt Smoker eCW1 ([facility]) Smoking 08/19/2020 12:00:00 AM EDT Current Smoker completed Curre nt Smoker eCW1 ([facility]) Smoking 08/10/2020 12:00:00 AM EDT Current Smoker completed Curre nt Smoker eCW1 ([facility]) Smoking 08/10/2020 12:00:00 AM EDT Current Smoker completed Curre nt Smoker eCW1 ([facility]) Smoking 08/10/2020 12:00:00 AM EDT Current Smoker completed Curre nt Smoker eCW1 ([facility]) Smoking 07/29/2020 12:00:00 AM EDT Current Smoker completed Curre nt Smoker eCW1 ([facility]) Smoking 07/29/2020 12:00:00 AM EDT Current Smoker completed Curre nt Smoker eCW1 ([facility]) Smoking 07/29/2020 12:00:00 AM EDT Current Smoker completed Curre nt Smoker eCW1 ([facility]) Smoking 07/29/2020 12:00:00 AM EDT Current Smoker completed Curre nt Smoker eCW1 ([facility]) 06/21/2020 03:05:29 AM EDT No completed No [facility] 06/21/2020 03:05:29 AM EDT No completed No [facility] 06/21/2020 03:05:29 AM EDT Current every day smoker co mpleted Current every day smoker [facility] 06/21/2020 03:05:29 AM EDT No completed No [facility] 06/21/2020 03:05:29 AM EDT No completed No [facility] 06/21/2020 03:05:29 AM EDT Current every day smoker co mpleted Current every day smoker [facility] Smoking 06/21/2020 03:05:00 AM EDT Current every day smoker co mpleted Current every day smoker [facility] Smoking 06/21/2020 03:05:00 AM EDT Current every day smoker co mpleted Current every day smoker [facility] Vital Signs ID Date Data Source UNK Name Value Range Interpretation Code Description Data Source(s) Body weight 190 [lb_av] 190 [lb_av] eCW1 ([facility]) Body height 62 [in_i] 62 [in_i] eCW1 ([facility] to [facility]) Body mass index (BMI) [Ratio] 34.75 kg/m2 34.75 kg/m2 eCW1 ([facility]) Systolic blood pressure 140 mm[Hg] 140 mm[Hg] e CW1 ([facility]) Diastolic blood pressure 82 mm[Hg] 82 mm[Hg] eCW1 ([facility]) Body weight 189.2 [lb_av] 189.2 [lb_av] eCW1 ([facility]) Body weight 85.82 kg 85.82 kg eCW1 ([facility] to [facility]) Body height 62 [in_i] 62 [in_i] eCW1 ([facility] to [facility]) Body mass index (BMI) [Ratio] 34.60 kg/m2 34.60 kg/m2 eCW1 ([facility]) Heart rate 96 /min 96 /min eCW1 ([facility]) Respiratory rate 18 /min 18 /min eCW1 ([facility]) Body temperature 97.0 [degF] 97.0 [degF] eCW1 ( [facility]) Systolic blood pressure 154 mm[Hg] 154 mm[Hg] e CW1 ([facility]) Diastolic blood pressure 98 mm[Hg] 98 mm[Hg] eCW1 ([facility]) Body weight 189.6 [lb_av] 189.6 [lb_av] eCW1 ([facility]) Body height 62 [in_i] 62 [in_i] eCW1 ([facility] to [facility]) Body mass index (BMI) [Ratio] 34.67 kg/m2 34.67 kg/m2 eCW1 ([facility]) Heart rate 101 /min 101 /min eCW1 ([facility]) Respiratory rate 18 /min 18 /min eCW1 ([facility]) Body temperature 97.4 [degF] 97.4 [degF] eCW1 ( [facility]) Systolic blood pressure 138 mm[Hg] 138 mm[Hg] e CW1 ([facility]) Diastolic blood pressure 88 mm[Hg] 88 mm[Hg] eCW1 ([facility]) Body weight 188.8 [lb_av] 188.8 [lb_av] eCW1 ([facility]) Body height 62 [in_i] 62 [in_i] eCW1 ([facility] to [facility]) Body mass index (BMI) [Ratio] 34.53 kg/m2 34.53 kg/m2 eCW1 ([facility]) Heart rate 108 /min 108 /min eCW1 ([facility]) Respiratory rate 18 /min 18 /min eCW1 ([facility]) Body temperature 97.3 [degF] 97.3 [degF] eCW1 ( [facility]) Systolic blood pressure 138 mm[Hg] 138 mm[Hg] e CW1 ([facility]) Diastolic blood pressure 80 mm[Hg] 80 mm[Hg] eCW1 ([facility]) Body weight 188.6 [lb_av] 188.6 [lb_av] eCW1 ([facility]) Body height 62 [in_i] 62 [in_i] eCW1 ([facility]) Body mass index (BMI) [Ratio] 34.49 kg/m2 34.49 kg/m2 eCW1 ([facility]) Heart rate 98 /min 98 /min eCW1 ([facility]) Respiratory rate 18 /min 18 /min eCW1 ([facility]) Body temperature 98.1 [degF] 98.1 [degF] eCW1 ( [facility]) Systolic blood pressure 138 mm[Hg] 138 mm[Hg] e CW1 ([facility]) Diastolic blood pressure 88 mm[Hg] 88 mm[Hg] eCW1 ([facility]) Body weight 197 [lb_av] 197 [lb_av] eCW1 ([facility]) Body height 62 [in_i] 62 [in_i] eCW1 ([facility] to [facility]) Body mass index (BMI) [Ratio] 36.03 kg/m2 36.03 kg/m2 eCW1 ([facility]) Heart rate 99 /min 99 /min eCW1 ([facility]) Respiratory rate 18 /min 18 /min eCW1 ([facility]) Body temperature 97.2 [degF] 97.2 [degF] eCW1 ( [facility]) Systolic blood pressure 140 mm[Hg] 140 mm[Hg] e CW1 ([facility]) Diastolic blood pressure 102 mm[Hg] 102 mm[Hg] eCW1 ([facility]) Oxygen saturation in Arterial blood by Pulse oximetry 98 % 98 % MEDENT ([facility], [facility]) Respiratory rate 16 /min 16 /min MEDENT ( [place] [facility], [facility]) Systolic blood pressure 163 mm[Hg] 163 mm[Hg] M EDENT ([facility], [facility]) Body temperature 97.1 [degF] 97.1 [degF] MEDENT ([facility], [facility]) Diastolic blood pressure 105 mm[Hg] 105 mm[Hg] MEDENT ([facility] [facility], [facility]) Heart rate 93 /min 93 /min MEDENT ([facility], [facility]) Body weight 195.00 [lb_av] 195.00 [lb_av] MEDEN T ([facility], [facility]) Body height 62 [in_i] 62 [in_i] MEDENT ([facility], [facility]) 5'2" Body mass index (BMI) [Ratio] 35.7 kg/m2 35.7 k g/m2 MEDENT ([place] [facility], [facility]) Body weight 193 [lb_av] 193 [lb_av] eCW1 ([facility]) Body height 62 [in_i] 62 [in_i] eCW1 ([facility]ending sale to [facility]) Body mass index (BMI) [Ratio] 35.30 kg/m2 35.30 kg/m2 eCW1 ([facility]) Heart rate 124 /min 124 /min eCW1 ([facility]) Respiratory rate 18 /min 18 /min eCW1 ([facility]) Body temperature 98.3 [degF] 98.3 [degF] eCW1 ( [facility]) Systolic blood pressure 138 mm[Hg] 138 mm[Hg] e CW1 ([facility]) Diastolic blood pressure 80 mm[Hg] 80 mm[Hg] eCW1 ([facility]) Body weight 194 [lb_av] 194 [lb_av] eCW1 ([facility]) Body height 62 [in_i] 62 [in_i] eCW1 ([facility] sale to [facility]) Diastolic blood pressure 98 mm[Hg] 98 mm[Hg] eCW1 ([facility]) Body mass index (BMI) [Ratio] 35.48 kg/m2 35.48 kg/m2 eCW1 ([facility]) Systolic blood pressure 148 mm[Hg] 148 mm[Hg] e CW1 ([facility]) Body weight 207 [lb_av] 207 [lb_av] eCW1 ([facility]) Body height 62.75 [in_i] 62.75 [in_i] eCW1 ([facility]) Body mass index (BMI) [Ratio] 36.96 kg/m2 36.96 kg/m2 eCW1 ([facility]) Heart rate 97 /min 97 /min eCW1 ([facility]) Respiratory rate 18 /min 18 /min eCW1 ([facility]) Body temperature 97.9 [degF] 97.9 [degF] eCW1 ( [facility]) Systolic blood pressure 144 mm[Hg] 144 mm[Hg] e CW1 ([facility]) Diastolic blood pressure 82 mm[Hg] 82 mm[Hg] eCW1 ([facility]) Body mass index (BMI) [Ratio] 38.0 kg/m2 38.0 k g/m2 MEDENT ([employer]) Diastolic blood pressure 76 mm[Hg] 76 mm[Hg] MEDENT ([employer]) Systolic blood pressure 130 mm[Hg] 130 mm[Hg] M EDENT ([employer]) Body height 62.75 [in_i] 62.75 [in_i] MEDENT ([employer]) 5'2.75" Body weight 213.00 [lb_av] 213.00 [lb_av] MEDEN T ([employer]) Body surface area Derived from formula 1.98 m2 1.98 m2 MEDENT ([employer]) Patient Treatment Plan of Care Planned Activity Planned Date Details Description Data Source (s) Amlodipine 10 MG Oral Tablet [Norvasc] 10/12/2020 12:00:00 AM EDT eCW1 ([facility]) Amlodipine 10 MG Oral Tablet [Norvasc] 10/12/2020 12:00:00 AM EDT eCW1 ([facility]) atorvastatin 40 MG Oral Tablet 08/26/2020 12:00:00 AM EDT eCW1 ([facility]) Lisinopril 20 MG Oral Tablet 08/26/2020 12:00:00 AM EDT eCW1 ([facility]) atorvastatin 40 MG Oral Tablet 08/26/2020 12:00:00 AM EDT eCW1 ([facility]) Lisinopril 20 MG Oral Tablet 08/26/2020 12:00:00 AM EDT eCW1 ([facility]) atorvastatin 40 MG Oral Tablet 08/26/2020 12:00:00 AM EDT eCW1 ([facility]) Lisinopril 20 MG Oral Tablet 08/26/2020 12:00:00 AM EDT eCW1 ([facility]) atorvastatin 40 MG Oral Tablet 08/26/2020 12:00:00 AM EDT eCW1 ([facility]) Lisinopril 20 MG Oral Tablet 08/26/2020 12:00:00 AM EDT eCW1 ([facility]) atorvastatin 40 MG Oral Tablet 08/26/2020 12:00:00 AM EDT eCW1 ([facility]) Lisinopril 20 MG Oral Tablet 08/26/2020 12:00:00 AM EDT eCW1 ([facility]) atorvastatin 40 MG Oral Tablet 08/26/2020 12:00:00 AM EDT eCW1 ([facility]) Lisinopril 20 MG Oral Tablet 08/26/2020 12:00:00 AM EDT eCW1 ([facility]) atorvastatin 40 MG Oral Tablet 08/26/2020 12:00:00 AM EDT eCW1 ([facility]) Lisinopril 20 MG Oral Tablet 08/26/2020 12:00:00 AM EDT eCW1 ([facility]) Fluconazole 150 MG Oral Tablet [Diflucan] 08/23/2020 12:00:00 AM ED T eCW1 ([facility]) Fluconazole 150 MG Oral Tablet [Diflucan] 08/23/2020 12:00:00 AM ED T eCW1 ([facility]) Fluconazole 150 MG Oral Tablet [Diflucan] 08/23/2020 12:00:00 AM ED T eCW1 ([facility]) gabapentin 100 MG Oral Capsule 08/10/2020 12:00:00 AM EDT eCW1 ([facility]) 24 HR Metformin hydrochloride 500 MG Extended Release Oral Tablet 08/10/2020 12:00:00 AM EDT eCW1 ([facility]) gabapentin 100 MG Oral Capsule 08/10/2020 12:00:00 AM EDT eCW1 ([facility]) 24 HR Metformin hydrochloride 500 MG Extended Release Oral Tablet 08/10/2020 12:00:00 AM EDT eCW1 ([facility]) gabapentin 100 MG Oral Capsule 08/10/2020 12:00:00 AM EDT eCW1 ([facility]) 24 HR Metformin hydrochloride 500 MG Extended Release Oral Tablet 08/10/2020 12:00:00 AM EDT eCW1 ([facility])
[2021-01-06 08:13] VITALS: BP 144/79
[2021-01-06] MEDS: KETOROLAC 60MG 2ML VIAL IM ONE (08:14)
[2021-01-06] MEDS: ACETAMINOPHEN TAB 650MG DOSE (2X325MG) PO ONE (08:15)
[2021-01-06] MEDS: CYCLOBENZAPRINE 5MG TABLET PO ONE (08:16)
== END 2021-01-06 08:27 | disposition left against medical advice (07) ==
LOC: M ED 02:23
DX: M54.30 Sciatica, unspecified side (principal); F17.210 Nicotine dependence, cigarettes, uncomplicated; Z79.899 Other long term (current) drug therapy; Z98.890 Other specified postprocedural states; Z91.013 Allergy to seafood; Z91.018 Allergy to other foods
CPT/HCPCS: 96372; 99283; J1885

== ENCOUNTER → 2021-01-24 | Outpatient (REF) | payer MEDICARE, MEDICAID | LOC: M SFHCPLAZ 15:49 | PROVIDERS: ATTEND Family Medicine | DX: E11.65 Type 2 diabetes mellitus with hyperglycemia (principal) ==

== ENCOUNTER 2021-06-25 09:52 | Inpatient (IN) | payer MEDICARE, MEDICAID ==
[~2021-06-25] VITALS: Ht 157.5 cm; Wt 100.8 kg
[2021-06-25 10:52] LABS: BASO % 0.3 % (0.0-1.0); EOS # 0.1 10^3/uL (0.0-0.5); EOS % 0.5 % (0.0-3.0); HEMATOCRIT 43.1 % (36.0-47.0); LYMPH # 1.2 10^3/uL (1.5-5.0); LYMPH % 9.5 % (24.0-44.0); MEAN CORPUSCULAR HEMOGLOBIN 29.5 pg (27.0-33.0); MEAN CORPUSCULAR HGB CONC 34.8 g/dl (32.0-36.5); MEAN CORPUSCULAR VOLUME 84.7 fl (80.0-96.0); MONO # 0.6 10^3/uL (0.0-0.8); MONO % 4.8 % (2.0-8.0); NEUTROPHILS # 10.9 10^3/uL (1.5-8.5); NEUTROPHILS % 84.4 % (36.0-66.0); PLATELET COUNT, AUTOMATED 320 10^3/uL (150-450); RED BLOOD COUNT 5.09 10^6/uL (4.00-5.40); WHITE BLOOD COUNT 12.9 10^3/uL (4.0-10.0)
[2021-06-25 10:54] LABS: VENOUS BASE EXCESS 0.2 (-2.0-2.0); VENOUS HCO3 24.5 MEQ/L (23.0-27.0); VENOUS O2 SATURATION 98.7 % (60.0-80.0); VENOUS PARTIAL PRESSURE CO2 38.7 mmHg (38.0-50.0); VENOUS PARTIAL PRESSURE O2 125.1 mmHg (30.0-50.0); VENOUS PH 7.419 UNITS (7.330-7.430); VENOUS STANDARD HCO3 24.7 MEQ/L; VENOUS TOTAL CO2 25.7 MEQ/L (24.0-28.0)
[2021-06-25] MEDS ORDERED: ONDANSETRON 4MG/2ML VIAL IV ONE (11:20)
[2021-06-25] MEDS ORDERED: NS 1,000 ML IV ONE (11:20)
[2021-06-25 11:21] LABS: OSMOLALITY SERUM 302 MOSM/KG (275-295)
[2021-06-25 11:26] LABS: ACETONE/KETONE 3.24 MG/DL (<2.81); ALBUMIN 3.4 GM/DL (3.2-5.2); ALT/SGPT 20 U/L (12-78); BILIRUBIN,DIRECT 0.2 MG/DL (0.0-0.2); BILIRUBIN,TOTAL 0.9 MG/DL (0.2-1.0); BLOOD UREA NITROGEN 14 MG/DL (7-18); CARBON DIOXIDE LEVEL 27 MEQ/L (21-32); CHLORIDE LEVEL 103 MEQ/L (98-107); CREATININE FOR GFR 0.67 MG/DL (0.55-1.30); GLOMERULAR FILTRATION RATE > 60.0 (>58); GLUCOSE, FASTING 441 MG/DL (70-100); LIPASE 72 U/L (73-393); POTASSIUM SERUM 3.7 MEQ/L (3.5-5.1); RSV AMPLIFICATION NEGATIVE (NEGATIVE); SODIUM LEVEL 137 MEQ/L (136-145); TOTAL PROTEIN 6.6 GM/DL (6.4-8.2)
[2021-06-25] MEDS ORDERED: ISOVUE-370 76% 100ML VIAL As Ordered ONE (11:26)
[2021-06-25 11:35] LABS: CK-MB VALUE MASS < 1.0 NG/ML (<3.6); CPK CREATINE PHOSPHOKINASE 30 U/L (26-192); MB/CK RELATIVE INDEX 3.33 (< OR =4)
[2021-06-25] MEDS: MORPHINE 2 MG/ML 1ML VIAL IV PRN ×2 (11:54→14:12)
[2021-06-25] MEDS ORDERED: HumaLOG INSULIN (NovoLOG) PER UNIT SC SCH (12:00)
[2021-06-25] MEDS ORDERED: HOME MED LIST COMPLETE! XX SCH (12:45)
[2021-06-25] MEDS ORDERED: MORPHINE 2 MG/ML 1ML VIAL IV PRN ×2 (13:55)
[2021-06-25] MEDS ORDERED: NS 1,000 ML IV SCH (13:55)
[2021-06-25] MEDS ORDERED: hydrALAZINE 20MG/ML 1ML VIAL (J0360 PER 20MG) IV PRN (13:55)
[2021-06-25] MEDS ORDERED: GLUCAGON INJ 1MG VIAL SC PRN (14:20)
[2021-06-25] MEDS ORDERED: GLUCOSE 4GM CHEW TABLET PO PRN (14:20)
[2021-06-25] MEDS ORDERED: ONDANSETRON 4MG/2ML VIAL IV PRN (14:20)
[2021-06-25] MEDS ORDERED: DEXTROSE 50% 50 ML SYRINGE IV PRN (14:20)
[2021-06-25 14:42] LABS: CHOLESTEROL LEVEL 197 MG/DL (<200); CHOLESTEROL RISK RATIO 4.377 (<5); HDL CHOLESTEROL 45 MG/DL (>40); LDL CHOLESTEROL 99 MG/DL (<100); NON-HDL-C 152 MG/DL; TRIGLYCERIDES LEVEL 264 MG/DL (<150)
[2021-06-25 15:01] LABS: HEMOGLOBIN A1c 12.3 %
[2021-06-25 16:56] VITALS: BP_SYST 129; BP_SYST 178; BP_DIAS 63; BP_DIAS 98
[2021-06-26] MEDS ORDERED: ENOXAPARIN 40MG/0.4ML SYRINGE (J1650 PER 10MG) SC SCH (09:00)
== END 2021-06-25 18:27 | disposition left against medical advice (07) | DRG 394 ==
LOC: M ED 09:52 → M ED INP 13:53 → ENRESERV 15:30 → M PCU 16:56
PROVIDERS: ADMIT Internal Medicine; ATTEND Internal Medicine
DX: K43.6 Other and unspecified ventral hernia with obstruction, without gangrene (principal); Z68.43 Body mass index [BMI] 50.0-59.9, adult; R45.851 Suicidal ideations; I10 Essential (primary) hypertension; E66.9 Obesity, unspecified; E03.9 Hypothyroidism, unspecified; E11.9 Type 2 diabetes mellitus without complications; F43.10 Post-traumatic stress disorder, unspecified; F32.89 Other specified depressive episodes; Z91.013 Allergy to seafood; Z91.018 Allergy to other foods; G47.33 Obstructive sleep apnea (adult) (pediatric)

== ENCOUNTER 2021-06-25 18:46 | Inpatient (IN) | payer MEDICARE, MEDICAID ==
[~2021-06-25] VITALS: Ht 157.5 cm; Wt 98.5 kg
[2021-06-25] MEDS ORDERED: LORazepam 2 MG/ML VIAL IM ONE (18:55)
[2021-06-25] MEDS ORDERED: OLANZapine INTRAMUSCULAR 10MG VIAL IM ONE (18:55)
[2021-06-25] MEDS ORDERED: HOME MED LIST COMPLETE! XX SCH (19:05)
[2021-06-25] MEDS ORDERED: OLANZapine 10 MG TAB PO ONE (19:45)
[2021-06-25] MEDS ORDERED: LORazepam 2 MG TAB PO STA (19:45)
[2021-06-26] MEDS ORDERED: LORazepam 2 MG/ML VIAL IM STA (04:00)
[2021-06-26] MEDS ORDERED: NS 1,000 ML IV ONE (11:15)
[2021-06-26] MEDS ORDERED: ONDANSETRON 4MG/2ML VIAL IV ONE (11:40)
[2021-06-26] MEDS: MORPHINE 2 MG/ML 1ML VIAL IV PRN ×2 (11:44→13:32)
[2021-06-26 11:47] LABS: BASO % 0.3 % (0.0-1.0); EOS # 0.1 10^3/uL (0.0-0.5); EOS % 0.5 % (0.0-3.0); HEMATOCRIT 43.2 % (36.0-47.0); HEMOGLOBIN 14.4 g/dl (12.0-15.5); LYMPH # 0.8 10^3/uL (1.5-5.0); LYMPH % 5.3 % (24.0-44.0); MEAN CORPUSCULAR HGB CONC 33.3 g/dl (32.0-36.5); MEAN CORPUSCULAR VOLUME 86.9 fl (80.0-96.0); MONO # 0.9 10^3/uL (0.0-0.8); NEUTROPHILS # 12.5 10^3/uL (1.5-8.5); NEUTROPHILS % 87.5 % (36.0-66.0); PLATELET COUNT, AUTOMATED 313 10^3/uL (150-450); RED BLOOD COUNT 4.97 10^6/uL (4.00-5.40); WHITE BLOOD COUNT 14.3 10^3/uL (4.0-10.0)
[2021-06-26 12:42] LABS: ALT/SGPT 17 U/L (12-78); BILIRUBIN,DIRECT 0.3 MG/DL (0.0-0.2); BILIRUBIN,TOTAL 1.5 MG/DL (0.2-1.0); BLOOD UREA NITROGEN 11 MG/DL (7-18); CALCIUM LEVEL 8.7 MG/DL (8.5-10.1); CARBON DIOXIDE LEVEL 27 MEQ/L (21-32); CHLORIDE LEVEL 102 MEQ/L (98-107); GLOMERULAR FILTRATION RATE > 60.0 (>58); GLUCOSE, FASTING 410 MG/DL (70-100); LIPASE 42 U/L (73-393); POTASSIUM SERUM 3.8 MEQ/L (3.5-5.1); SODIUM LEVEL 135 MEQ/L (136-145); TOTAL PROTEIN 6.1 GM/DL (6.4-8.2)
[2021-06-26] MEDS ORDERED: ISOVUE-370 76% 100ML VIAL As Ordered ONE (13:08)
[2021-06-26] MEDS ORDERED: MORPHINE 2 MG/ML 1ML VIAL IV PRN ×3 (14:15→19:55)
[2021-06-26] MEDS ORDERED: MORPHINE 4 MG/ML 1ML VIAL/SYRINGE IV PRN (14:35)
[2021-06-26] MEDS: NS 1,000 ML IV SCH ×2 (16:23→22:04)
[2021-06-26] MEDS ORDERED: DEXTROSE 50% 50 ML SYRINGE IV PRN (17:10)
[2021-06-26] MEDS ORDERED: GLUCOSE 4GM CHEW TABLET PO PRN (17:10)
[2021-06-26] MEDS ORDERED: GLUCAGON INJ 1MG VIAL SC PRN (17:10)
[2021-06-26 17:55] VITALS: BP 142/90
[2021-06-26] MEDS: PANTOPRAZOLE 40MG VIAL IV SCH (18:39)
[2021-06-26] MEDS: HumaLOG INSULIN (NovoLOG) PER UNIT SC SCH (18:40)
[2021-06-26] MEDS: CHLORASEPTIC SPRAY MT PRN (19:17)
[2021-06-26 22:00] VITALS: BP 118/70
[2021-06-26] MEDS: ONDANSETRON 4MG/2ML VIAL IV PRN (22:01)
[2021-06-26] MEDS: MORPHINE 4 MG/ML 1ML VIAL/SYRINGE IV PRN (22:02)
[2021-06-27] MEDS ORDERED: MORPHINE 2 MG/ML 1ML VIAL IV ONE ×2 (01:10→10:55)
[2021-06-27] MEDS: HumaLOG INSULIN (NovoLOG) PER UNIT SC SCH ×5 (01:28→23:58)
[2021-06-27] MEDS ORDERED: CAPSAICIN 0.025% CR 60 GM TOP PRN (02:55)
[2021-06-27] MEDS: MORPHINE 4 MG/ML 1ML VIAL/SYRINGE IV PRN ×4 (04:59→22:03)
[2021-06-27] MEDS: ONDANSETRON 4MG/2ML VIAL IV PRN ×3 (05:06→22:02)
[2021-06-27 06:00] VITALS: BP 124/72
[2021-06-27 06:04] LABS: HEMATOCRIT 39.3 % (36.0-47.0); MEAN CORPUSCULAR HGB CONC 33.1 g/dl (32.0-36.5); MEAN CORPUSCULAR VOLUME 87.7 fl (80.0-96.0); PLATELET COUNT, AUTOMATED 264 10^3/uL (150-450); RED BLOOD COUNT 4.48 10^6/uL (4.00-5.40); WHITE BLOOD COUNT 7.6 10^3/uL (4.0-10.0)
[2021-06-27 06:18] LABS: INR 0.99; PROTHROMBIN TIME 13.5 SECONDS (12.7-14.5)
[2021-06-27] MEDS: NS 1,000 ML IV SCH (06:19)
[2021-06-27 06:26] LABS: ALBUMIN 2.6 GM/DL (3.2-5.2); ALT/SGPT 13 U/L (12-78); BILIRUBIN,TOTAL 0.9 MG/DL (0.2-1.0); BLOOD UREA NITROGEN 10 MG/DL (7-18); CALCIUM LEVEL 8.1 MG/DL (8.5-10.1); CARBON DIOXIDE LEVEL 26 MEQ/L (21-32); CHLORIDE LEVEL 108 MEQ/L (98-107); CREATININE FOR GFR 0.36 MG/DL (0.55-1.30); GLOMERULAR FILTRATION RATE > 60.0 (>58); GLUCOSE, FASTING 205 MG/DL (70-100); POTASSIUM SERUM 3.4 MEQ/L (3.5-5.1); SODIUM LEVEL 141 MEQ/L (136-145); TOTAL PROTEIN 5.5 GM/DL (6.4-8.2)
[2021-06-27] MEDS: KCL 10MEQ/100ML SWI (KRUN) 10 MEQ in IV 1 EA IV SCH ×3 (10:00→11:00)
[2021-06-27] MEDS ORDERED: MORPHINE 2 MG/ML 1ML VIAL IV PRN (10:45)
[2021-06-27] MEDS ORDERED: HALOPERIDOL 5MG/ML VIAL (J1630 PER 1) IV PRN (10:45)
[2021-06-27] MEDS: ENOXAPARIN 40MG/0.4ML SYRINGE (J1650 PER 10MG) SC SCH (10:45)
[2021-06-27] MEDS: CHLORASEPTIC SPRAY MT PRN (11:36)
[2021-06-27] MEDS ORDERED: LORazepam 2 MG/ML VIAL IV STA (11:49)
[2021-06-27 14:00] VITALS: BP 150/92
[2021-06-27] MEDS: KCL 20MEQ in NS 1000ML 1,000 ML IV SCH ×2 (14:18→23:57)
[2021-06-27] MEDS: PANTOPRAZOLE 40MG VIAL IV SCH (18:20)
[2021-06-27 21:10] VITALS: BP 133/77
[2021-06-27] MEDS: OLANZapine 5 MG TAB PO PRN (22:03)
[2021-06-28] MEDS: MORPHINE 4 MG/ML 1ML VIAL/SYRINGE IV PRN ×5 (04:37→22:19)
[2021-06-28 05:34] VITALS: BP 140/81
[2021-06-28] MEDS: HumaLOG INSULIN (NovoLOG) PER UNIT SC SCH ×3 (06:00→18:00)
[2021-06-28 06:06] LABS: HEMATOCRIT 36.9 % (36.0-47.0); MEAN CORPUSCULAR HEMOGLOBIN 28.6 pg (27.0-33.0); MEAN CORPUSCULAR HGB CONC 32.5 g/dl (32.0-36.5); MEAN CORPUSCULAR VOLUME 87.9 fl (80.0-96.0); PLATELET COUNT, AUTOMATED 275 10^3/uL (150-450); WHITE BLOOD COUNT 6.2 10^3/uL (4.0-10.0)
[2021-06-28 06:29] LABS: ALBUMIN 2.4 GM/DL (3.2-5.2); ALT/SGPT 13 U/L (12-78); BILIRUBIN,TOTAL 0.8 MG/DL (0.2-1.0); BLOOD UREA NITROGEN 10 MG/DL (7-18); CALCIUM LEVEL 7.9 MG/DL (8.5-10.1); CARBON DIOXIDE LEVEL 24 MEQ/L (21-32); CHLORIDE LEVEL 109 MEQ/L (98-107); CREATININE FOR GFR 0.34 MG/DL (0.55-1.30); GLOMERULAR FILTRATION RATE > 60.0 (>58); GLUCOSE, FASTING 133 MG/DL (70-100); POTASSIUM SERUM 3.3 MEQ/L (3.5-5.1); SODIUM LEVEL 142 MEQ/L (136-145); TOTAL PROTEIN 5.2 GM/DL (6.4-8.2)
[2021-06-28] MEDS: ENOXAPARIN 40MG/0.4ML SYRINGE (J1650 PER 10MG) SC SCH (08:22)
[2021-06-28] MEDS: FLUoxetine 20MG CAP PO SCH (08:22)
[2021-06-28] MEDS: OLANZapine 2.5MG TABLET PO SCH (08:22)
[2021-06-28] MEDS: ONDANSETRON 4MG/2ML VIAL IV PRN ×4 (08:50→22:18)
[2021-06-28] MEDS: CHLORASEPTIC SPRAY MT PRN (08:51)
[2021-06-28] MEDS: KCL 20MEQ in NS 1000ML 1,000 ML IV SCH ×2 (10:29→22:19)
[2021-06-28] MEDS ORDERED: POTASSIUM CHLORIDE 10MEQ SR TABLET PO ONE ×2 (12:30→15:00)
[2021-06-28 14:00] VITALS: BP 154/83
[2021-06-28] MEDS ORDERED: MORPHINE 2 MG/ML 1ML VIAL IV ONE (15:00)
[2021-06-28] MEDS: OLANZapine 5 MG TAB PO PRN ×2 (15:44→22:18)
[2021-06-28] MEDS: PANTOPRAZOLE 40MG VIAL IV SCH (18:14)
[2021-06-28 18:58] VITALS: BP 159/88
[2021-06-29] MEDS ORDERED: RAMELTEON 8 MG TAB (ROZEREM) PO PRN
[2021-06-29] MEDS ORDERED: LORazepam 0.5 MG TAB PO PRN
[2021-06-29] MEDS: HumaLOG INSULIN (NovoLOG) PER UNIT SC SCH ×3 (00:56→11:48)
[2021-06-29 06:10] VITALS: BP 159/89
[2021-06-29] MEDS: ONDANSETRON 4MG/2ML VIAL IV PRN (06:34)
[2021-06-29] MEDS: OLANZapine 2.5MG TABLET PO SCH (08:08)
[2021-06-29] MEDS: MORPHINE 4 MG/ML 1ML VIAL/SYRINGE IV PRN ×2 (08:08→13:48)
[2021-06-29] MEDS: FLUoxetine 20MG CAP PO SCH (08:08)
[2021-06-29] MEDS: KCL 20MEQ in NS 1000ML 1,000 ML IV SCH (08:09)
[2021-06-29] MEDS: ENOXAPARIN 40MG/0.4ML SYRINGE (J1650 PER 10MG) SC SCH (08:09)
[2021-06-29 08:10] VITALS: BP 166/98
[2021-06-29 08:37] LABS: BASO % 0.5 % (0.0-1.0); EOS # 0.2 10^3/uL (0.0-0.5); HEMATOCRIT 39.1 % (36.0-47.0); HEMOGLOBIN 12.8 g/dl (12.0-15.5); LYMPH # 1.2 10^3/uL (1.5-5.0); LYMPH % 15.6 % (24.0-44.0); MEAN CORPUSCULAR HEMOGLOBIN 28.7 pg (27.0-33.0); MEAN CORPUSCULAR HGB CONC 32.7 g/dl (32.0-36.5); MEAN CORPUSCULAR VOLUME 87.7 fl (80.0-96.0); MONO # 0.6 10^3/uL (0.0-0.8); MONO % 8.4 % (2.0-8.0); NEUTROPHILS # 5.5 10^3/uL (1.5-8.5); NEUTROPHILS % 72.4 % (36.0-66.0); PLATELET COUNT, AUTOMATED 332 10^3/uL (150-450); RED BLOOD COUNT 4.46 10^6/uL (4.00-5.40); WHITE BLOOD COUNT 7.5 10^3/uL (4.0-10.0)
[2021-06-29 09:04] LABS: ALBUMIN 2.8 GM/DL (3.2-5.2); ALT/SGPT 17 U/L (12-78); BILIRUBIN,TOTAL 0.9 MG/DL (0.2-1.0); BLOOD UREA NITROGEN 4 MG/DL (7-18); CARBON DIOXIDE LEVEL 20 MEQ/L (21-32); CHLORIDE LEVEL 110 MEQ/L (98-107); CREATININE FOR GFR 0.34 MG/DL (0.55-1.30); GLOMERULAR FILTRATION RATE > 60.0 (>58); GLUCOSE, FASTING 138 MG/DL (70-100); MAGNESIUM LEVEL 1.5 MG/DL (1.8-2.4); POTASSIUM SERUM 4.3 MEQ/L (3.5-5.1); SODIUM LEVEL 140 MEQ/L (136-145); TOTAL PROTEIN 6.3 GM/DL (6.4-8.2)
[2021-06-29 14:00] VITALS: BP 161/73
[2021-06-29] MEDS ORDERED: OLAN2.5T25 PO (16:52)
[2021-06-29] MEDS ORDERED: ABIL1TAB11 PO (16:52)
[2021-06-29] MEDS ORDERED: FLUO20CA22 PO (16:52)
[2021-06-29] MEDS ORDERED: PANT40TA29 PO (16:52)
[2021-06-29] MEDS ORDERED: POTA1TAB14 PO (16:52)
[2021-06-29] MEDS ORDERED: MAGN1TAB26 OR (16:53)
== END 2021-06-29 17:20 | disposition left against medical advice (07) | DRG 394 ==
LOC: M ED 18:46 → M ED INP 06-26 14:33 → ENRESERV 06-26 16:04 → M MSPAV 06-26 17:57
PROVIDERS: ADMIT Internal Medicine; ATTEND Family Medicine
DX: K43.6 Other and unspecified ventral hernia with obstruction, without gangrene (principal); R45.851 Suicidal ideations; Z68.43 Body mass index [BMI] 50.0-59.9, adult; I10 Essential (primary) hypertension; E11.9 Type 2 diabetes mellitus without complications; E03.9 Hypothyroidism, unspecified; E87.6 Hypokalemia; E66.9 Obesity, unspecified; F43.10 Post-traumatic stress disorder, unspecified; G47.33 Obstructive sleep apnea (adult) (pediatric); F31.9 Bipolar disorder, unspecified; Z91.013 Allergy to seafood; Z91.018 Allergy to other foods

== ENCOUNTER → 2021-07-22 | Outpatient (REF) | payer MEDICARE, MEDICAID ==
[~2021-07-22] MED LIST changes: +ABIL1TAB11 PO; +FLUO20CA22 PO; +MAGN1TAB26 OR; +OLAN2.5T25 PO; +PANT40TA29 PO; +POTA1TAB14 PO
== END ==
LOC: M SFHCPLAZ 11:12
PROVIDERS: ATTEND Family Medicine
DX: E87.6 Hypokalemia (principal)

== ENCOUNTER → 2021-07-22 | Outpatient (CLI) | payer MEDICARE, MEDICAID ==
[2021-07-22 13:24] LABS: BASO % 0.4 % (0.0-1.0); EOS # 0.2 10^3/uL (0.0-0.5); EOS % 2.1 % (0.0-3.0); HEMATOCRIT 39.2 % (36.0-47.0); HEMOGLOBIN 13.3 g/dl (12.0-15.5); LYMPH # 1.7 10^3/uL (1.5-5.0); LYMPH % 18.5 % (24.0-44.0); MEAN CORPUSCULAR HEMOGLOBIN 29.4 pg (27.0-33.0); MEAN CORPUSCULAR HGB CONC 33.9 g/dl (32.0-36.5); MEAN CORPUSCULAR VOLUME 86.5 fl (80.0-96.0); MONO # 0.5 10^3/uL (0.0-0.8); MONO % 5.1 % (2.0-8.0); NEUTROPHILS # 6.9 10^3/uL (1.5-8.5); NEUTROPHILS % 73.6 % (36.0-66.0); PLATELET COUNT, AUTOMATED 336 10^3/uL (150-450); RED BLOOD COUNT 4.53 10^6/uL (4.00-5.40); WHITE BLOOD COUNT 9.3 10^3/uL (4.0-10.0)
[2021-07-22 13:46] LABS: CHOLESTEROL RISK RATIO 5.184 (<5); FREE T4 1.07 NG/DL (0.76-1.46); POTASSIUM SERUM 3.9 MEQ/L (3.5-5.1); THYROID STIMULATING HORMONE 1.41 uIU/ML (0.358-3.740)
[2021-07-22 14:28] LABS: HEMOGLOBIN A1c 12.9 %
[2021-07-22 18:45] LABS: THYROID PEROXIDASE ANTIBODY 541.2 U/ML (<60.0)
== END ==
LOC: M PLALAB 11:19
PROVIDERS: ATTEND Student in an Organized Health Care Education/Training Program
DX: E11.65 Type 2 diabetes mellitus with hyperglycemia (principal); E78.5 Hyperlipidemia, unspecified; E03.9 Hypothyroidism, unspecified; I10 Essential (primary) hypertension; E87.6 Hypokalemia

== ENCOUNTER → 2021-08-16 | Outpatient (REF) | LOC: M LAB 09:54 | PROVIDERS: ATTEND Nurse Practitioner Family | DX: Z02.89 Encounter for other administrative examinations (principal) ==

== ENCOUNTER 2021-11-23 11:02 | Emergency (ER) | payer MEDICARE, MEDICAID ==
[~2021-11-23] VITALS: Ht 157.5 cm; Wt 95.1 kg
[2021-11-23] MEDS ORDERED: METF10004 (11:53)
[2021-11-23] MEDS ORDERED: TRUL0.5I (11:53)
[2021-11-23] MEDS ORDERED: KETOROLAC 30 MG/ML 1ML VIAL IV ONE (13:15)
[2021-11-23] MEDS ORDERED: ONDANSETRON 4MG 2ML VIAL IV ONE (13:15)
[2021-11-23 13:52] LABS: BASO % 0.3 % (0.0-1.0); EOS # 0.1 10^3/uL (0.0-0.5); EOS % 1.1 % (0.0-3.0); HEMATOCRIT 42.5 % (36.0-47.0); HEMOGLOBIN 14.3 g/dl (12.0-15.5); LYMPH # 1.5 10^3/uL (1.5-5.0); LYMPH % 13.6 % (24.0-44.0); MEAN CORPUSCULAR HEMOGLOBIN 29.5 pg (27.0-33.0); MEAN CORPUSCULAR HGB CONC 33.6 g/dl (32.0-36.5); MEAN CORPUSCULAR VOLUME 87.8 fl (80.0-96.0); MONO # 0.4 10^3/uL (0.0-0.8); MONO % 3.8 % (2.0-8.0); NEUTROPHILS # 9.1 10^3/uL (1.5-8.5); NEUTROPHILS % 80.8 % (36.0-66.0); PLATELET COUNT, AUTOMATED 298 10^3/uL (150-450); RED BLOOD COUNT 4.84 10^6/uL (4.00-5.40); WHITE BLOOD COUNT 11.3 10^3/uL (4.0-10.0)
[2021-11-23 14:19] LABS: HCG, SERUM QUALITATIVE NEGATIVE (NEGATIVE)
[2021-11-23 14:28] LABS: ALBUMIN 3.4 GM/DL (3.2-5.2); ALT/SGPT 25 U/L (12-78); BILIRUBIN,DIRECT 0.3 MG/DL (0.0-0.2); BILIRUBIN,TOTAL 1.4 MG/DL (0.2-1.0); BLOOD UREA NITROGEN 17 MG/DL (7-18); CALCIUM LEVEL 9.3 MG/DL (8.5-10.1); CARBON DIOXIDE LEVEL 29 MEQ/L (21-32); CHLORIDE LEVEL 100 MEQ/L (98-107); CREATININE FOR GFR 0.66 MG/DL (0.55-1.30); GLOMERULAR FILTRATION RATE > 60.0 (>58); GLUCOSE, FASTING 271 MG/DL (70-100); LIPASE 98 U/L (73-393); POTASSIUM SERUM 4.1 MEQ/L (3.5-5.1); SODIUM LEVEL 133 MEQ/L (136-145); TOTAL PROTEIN 6.6 GM/DL (6.4-8.2)
[2021-11-23] MEDS ORDERED: ISOVUE-370 76% 100ML VIAL As Ordered ONE (14:48)
[2021-11-23 17:06] VITALS: BP 143/90
== END 2021-11-23 17:30 | disposition home or self-care (01) ==
LOC: M ED 11:02
DX: K56.600 Partial intestinal obstruction, unspecified as to cause (principal); E80.7 Disorder of bilirubin metabolism, unspecified; K82.8 Other specified diseases of gallbladder; K46.0 Unspecified abdominal hernia with obstruction, without gangrene; E11.9 Type 2 diabetes mellitus without complications; E03.9 Hypothyroidism, unspecified; G43.909 Migraine, unspecified, not intractable, without status migrainosus; K21.9 Gastro-esophageal reflux disease without esophagitis; F31.9 Bipolar disorder, unspecified; F43.10 Post-traumatic stress disorder, unspecified; F41.9 Anxiety disorder, unspecified; F17.200 Nicotine dependence, unspecified, uncomplicated; Z87.442 Personal history of urinary calculi; Z91.013 Allergy to seafood; Z91.02 Food additives allergy status; Z79.4 Long term (current) use of insulin; Z79.899 Other long term (current) drug therapy
CPT/HCPCS: 74177; 76705; 80048; 80076; 83690; 84703; 85025; 96374; 99284; J1885; J2405; Q9967

== ENCOUNTER → 2021-11-28 | Outpatient (CLI) | payer MEDICARE, MEDICAID ==
[~2021-11-28] MED LIST changes: +METF10004; +TRUL0.5I
[2021-11-28 19:02] LABS: ALBUMIN 3.4 GM/DL (3.2-5.2); ALT/SGPT 32 U/L (12-78); BILIRUBIN,DIRECT 0.3 MG/DL (0.0-0.2); BILIRUBIN,TOTAL 1.1 MG/DL (0.2-1.0); BLOOD UREA NITROGEN 12 MG/DL (7-18); CALCIUM LEVEL 9.4 MG/DL (8.5-10.1); CARBON DIOXIDE LEVEL 30 MEQ/L (21-32); CHLORIDE LEVEL 99 MEQ/L (98-107); CREATININE FOR GFR 0.59 MG/DL (0.55-1.30); GLOMERULAR FILTRATION RATE > 60.0 (>58); GLUCOSE, FASTING 240 MG/DL (70-100); LIPASE 91 U/L (73-393); POTASSIUM SERUM 3.9 MEQ/L (3.5-5.1); SODIUM LEVEL 135 MEQ/L (136-145)
== END ==
LOC: M PLALAB 14:53
PROVIDERS: ATTEND Student in an Organized Health Care Education/Training Program
DX: R10.13 Epigastric pain (principal); Z79.899 Other long term (current) drug therapy

== ENCOUNTER → 2021-11-28 | Outpatient (CLI) | payer MEDICARE, MEDICAID ==
[2021-11-28 15:51] LABS: HEMOGLOBIN A1c 11.1 %
[2021-11-28 16:03] LABS: CHOLESTEROL RISK RATIO 3.58 (<5)
[2021-11-28 16:13] LABS: MALB URINE SIEMENS 27.7 MG/L; MAU/CREAT RATIO 10.6 MCG/MG (0.0-30.0)
== END ==
LOC: M PLALAB 13:38
PROVIDERS: ATTEND Student in an Organized Health Care Education/Training Program
DX: E11.65 Type 2 diabetes mellitus with hyperglycemia (principal)

== ENCOUNTER → 2022-03-14 | Outpatient (REF) | payer MEDICARE, MEDICAID | LOC: M SFHCPLAZ 14:55 | PROVIDERS: ATTEND Family Medicine | DX: Z53.9 Procedure and treatment not carried out, unspecified reason (principal) ==

== ENCOUNTER 2022-03-22 07:55 | Emergency (ER) | payer MEDICARE, MEDICAID ==
[~2022-03-22] VITALS: Ht 157.5 cm; Wt 95.5 kg
[2022-03-22 07:56] VITALS: BP 126/82
== END 2022-03-22 08:00 | disposition left against medical advice (07) ==
LOC: M ED 07:55
DX: Z53.21 Procedure and treatment not carried out due to patient leaving prior to being seen by health care provider (principal)

== ENCOUNTER → 2022-04-12 | Outpatient (CLI) | payer MEDICARE, MEDICAID ==
[2022-04-12 11:04] LABS: CHOLESTEROL RISK RATIO 2.88 (<5); HDL CHOLESTEROL 26.3 MG/DL (>40); LDL CHOLESTEROL 19.9 MG/DL (<100)
[2022-04-12 11:08] LABS: FOLLICLE STIMULATING HORMONE 63.2 mIU/ML; LUTEINIZING HORMONE 32.6 mIU/ML
[2022-04-12 11:22] LABS: CREATININE, URINE 68.5 MG/DL; MALB URINE SIEMENS < 3.0 MG/DL; MAU/CREAT RATIO 4.3 MCG/MG (0.0-30.0)
[2022-04-12 12:10] LABS: HEMOGLOBIN A1c 12.6 % (4.0-6.0)
== END ==
LOC: M PLALAB 08:08
PROVIDERS: ATTEND Student in an Organized Health Care Education/Training Program
DX: R23.2 Flushing (principal); E78.5 Hyperlipidemia, unspecified; E11.65 Type 2 diabetes mellitus with hyperglycemia

== ENCOUNTER 2022-06-04 03:57 | Inpatient (IN) | payer MEDICARE, MEDICAID ==
[~2022-06-04] VITALS: Ht 157.5 cm; Wt 95.4 kg
[~2022-06-04 03:57] MED LIST changes: -METF10004; +SENN-186 PO; -SENN-80 PO; -TRUL0.5I; +TRUL0.5I SC
[2022-06-04 05:50] LABS: INR 0.87
[2022-06-04 05:53] LABS: BASO # 0.1 10^3/uL (0.0-0.2); BASO % 0.4 % (0.0-1.0); EOS # 0.1 10^3/uL (0.0-0.5); EOS % 0.6 % (0.0-3.0); HEMATOCRIT 50.3 % (36.0-47.0); HEMOGLOBIN 16.3 g/dl (12.0-15.5); LYMPH # 2.2 10^3/uL (1.5-5.0); MEAN CORPUSCULAR HEMOGLOBIN 29.9 pg (27.0-33.0); MEAN CORPUSCULAR HGB CONC 32.4 g/dl (32.0-36.5); MEAN CORPUSCULAR VOLUME 92.1 fl (80.0-96.0); MONO # 1.1 10^3/uL (0.0-0.8); MONO % 5.7 % (2.0-8.0); NEUTROPHILS # 16.3 10^3/uL (1.5-8.5); NEUTROPHILS % 81.9 % (36.0-66.0); PLATELET COUNT, AUTOMATED 465 10^3/uL (150-450); RED BLOOD COUNT 5.46 10^6/uL (4.00-5.40); WHITE BLOOD COUNT 19.9 10^3/uL (4.0-10.0)
[2022-06-04 06:01] LABS: LIPASE 31 U/L (12-53)
[2022-06-04 06:03] LABS: ALBUMIN 4.2 G/DL (3.2-5.2); ALKALINE PHOSPHATASE 79 U/L (46-116); ALT/SGPT 23 U/L (7.0-40); AST/SGOT 12 U/L (<34); BILIRUBIN,DIRECT 0.8 MG/DL (<0.4); BILIRUBIN,TOTAL 1.9 MG/DL (0.3-1.2); BLOOD UREA NITROGEN 19 MG/DL (9-23); CALCIUM LEVEL 9.7 MG/DL (8.5-10.1); CARBON DIOXIDE LEVEL 23 MMOL/L (20-31); CHLORIDE LEVEL 105 MMOL/L (98-107); CREATININE FOR GFR 0.72 MG/DL (0.55-1.30); GLOMERULAR FILTRATION RATE > 60.0 (>58); GLUCOSE, FASTING 178 MG/DL (60-100); POTASSIUM SERUM 4.4 MMOL/L (3.5-5.1); SODIUM LEVEL 138 MMOL/L (136-145); TOTAL PROTEIN 7.4 G/DL (5.7-8.2)
[2022-06-04] MEDS ORDERED: NS 1,000 ML IV ONE (06:50)
[2022-06-04] MEDS ORDERED: ONDANSETRON 4MG 2ML VIAL IV ONE ×2 (07:20→11:25)
[2022-06-04] MEDS ORDERED: KETOROLAC 30 MG/ML 1ML VIAL IV ONE (07:35)
[2022-06-04] MEDS ORDERED: PROMETHAZINE 25MG/ML 1ML VIAL IV ONE (07:55)
[2022-06-04] MEDS ORDERED: ISOVUE-370 76% 100ML VIAL As Ordered ONE (08:02)
[2022-06-04 09:36] LABS: RSV AMPLIFICATION NEGATIVE (NEGATIVE)
[2022-06-04] MEDS ORDERED: PIPERACILLIN/TAZOBACTAM SOD 3.375 GM in D5W MINI-BAG PLUS 50 ML IV ONE (10:40)
[2022-06-04] MEDS ORDERED: NS 1,000 ML IV SCH (10:40)
[2022-06-04] MEDS ORDERED: MORPHINE 4 MG/ML 1ML VIAL IV ONE (11:25)
[2022-06-04] MEDS ORDERED: LIDOCAINE VISCOUS 2% SOLN 15ML UDC PO ONE (11:30)
[2022-06-04] MEDS: INSULIN LISPRO (NovoLOG) PER UNIT SC SCH ×3 (12:00→23:40)
[2022-06-04] MEDS ORDERED: MORPHINE 4 MG/ML 1ML VIAL IV PRN (12:45)
[2022-06-04] MEDS: NS 1,000 ML IV SCH ×2 (12:45→20:45)
[2022-06-04] MEDS ORDERED: GLUCAGON INJ 1MG VIAL SC PRN (12:55)
[2022-06-04] MEDS ORDERED: DEXTROSE 50% 50ML SYRINGE IV PRN (12:55)
[2022-06-04] MEDS ORDERED: MORPHINE 2 MG/ML 1ML VIAL IV PRN (12:55)
[2022-06-04] MEDS ORDERED: GLUCOSE 4GM CHEW TABLET PO PRN (12:55)
[2022-06-04] MEDS: MORPHINE 2 MG/ML 1ML VIAL IV PRN ×2 (13:02→20:53)
[2022-06-04] MEDS ORDERED: ARIP1TAB6 PO (13:19)
[2022-06-04] MEDS ORDERED: TOUJ300I2 SC (13:19)
[2022-06-04] MEDS ORDERED: GABA-282 PO (13:19)
[2022-06-04] MEDS ORDERED: OLAN2.5T25 PO (13:21)
[2022-06-04] MEDS ORDERED: ATOR80TA59 PO (13:21)
[2022-06-04] MEDS ORDERED: LISI20TA33 PO (13:23)
[2022-06-04] MEDS ORDERED: HOME MED LIST COMPLETE! XX SCH (13:25)
[2022-06-04] MEDS ORDERED: JARD1TAB PO (13:33)
[2022-06-04 16:01] VITALS: BP 140/88
[2022-06-04] MEDS: PANTOPRAZOLE 40MG VIAL IV SCH (16:15)
[2022-06-04] MEDS ORDERED: INSULIN LISPRO (NovoLOG) PER UNIT SC SCH ×2 (17:30→21:00)
[2022-06-04 18:00] VITALS: BP 130/84
[2022-06-04] MEDS: ONDANSETRON 4MG 2ML VIAL IV PRN (20:45)
[2022-06-04 21:00] VITALS: BP 130/90
[2022-06-05] MEDS: PROMETHAZINE 25MG/ML 1ML VIAL IV PRN ×4 (01:06→23:01)
[2022-06-05] MEDS: MORPHINE 2 MG/ML 1ML VIAL IV PRN ×5 (01:08→23:40)
[2022-06-05 01:20] VITALS: BP 156/86
[2022-06-05] MEDS: NS 1,000 ML IV SCH ×3 (05:53→17:50)
[2022-06-05] MEDS: INSULIN LISPRO (NovoLOG) PER UNIT SC SCH ×3 (05:54→17:51)
[2022-06-05 06:24] LABS: BASO % 0.7 % (0.0-1.0); EOS # 0.1 10^3/uL (0.0-0.5); EOS % 2.1 % (0.0-3.0); HEMATOCRIT 40.3 % (36.0-47.0); LYMPH % 24.7 % (24.0-44.0); MEAN CORPUSCULAR HEMOGLOBIN 30.2 pg (27.0-33.0); MEAN CORPUSCULAR HGB CONC 32.3 g/dl (32.0-36.5); MEAN CORPUSCULAR VOLUME 93.5 fl (80.0-96.0); MONO # 0.6 10^3/uL (0.0-0.8); MONO % 13.5 % (2.0-8.0); NEUTROPHILS # 2.5 10^3/uL (1.5-8.5); NEUTROPHILS % 58.8 % (36.0-66.0); PLATELET COUNT, AUTOMATED 277 10^3/uL (150-450); RED BLOOD COUNT 4.31 10^6/uL (4.00-5.40); WHITE BLOOD COUNT 4.2 10^3/uL (4.0-10.0)
[2022-06-05 06:39] LABS: ALBUMIN 3.1 G/DL (3.2-5.2); ALKALINE PHOSPHATASE 59 U/L (46-116); ALT/SGPT < 9 U/L (7.0-40); AST/SGOT 9 U/L (<34); BILIRUBIN,TOTAL 1.4 MG/DL (0.3-1.2); BLOOD UREA NITROGEN 20 MG/DL (9-23); CALCIUM LEVEL 7.8 MG/DL (8.5-10.1); CARBON DIOXIDE LEVEL 25 MMOL/L (20-31); CHLORIDE LEVEL 109 MMOL/L (98-107); CREATININE FOR GFR 0.63 MG/DL (0.55-1.30); GLOMERULAR FILTRATION RATE > 60.0 (>58); GLUCOSE, FASTING 92 MG/DL (60-100); MAGNESIUM LEVEL 1.7 MG/DL (1.8-2.4); POTASSIUM SERUM 3.8 MMOL/L (3.5-5.1); SODIUM LEVEL 142 MMOL/L (136-145); TOTAL PROTEIN 5.6 G/DL (5.7-8.2)
[2022-06-05] MEDS: PANTOPRAZOLE 40MG VIAL IV SCH (09:40)
[2022-06-05 10:05] VITALS: BP 132/76
[2022-06-05] MEDS: ONDANSETRON 4MG 2ML VIAL IV PRN ×2 (13:23→20:29)
[2022-06-05 14:00] VITALS: BP 156/82
[2022-06-05] MEDS ORDERED: INFLUENZA QUADRIVALENT PF VACCINE 0.5ML SYRINGE IM.IMMUN ONE (15:00)
[2022-06-05 18:00] VITALS: BP 128/74
[2022-06-05 19:30] VITALS: BP 152/92
[2022-06-05] MEDS ORDERED: CHLORASEPTIC SPRAY MT PRN (20:25)
[2022-06-06] VITALS (10 sets, daily range): BP systolic 138–186; BP diastolic 90–120
[2022-06-06] MEDS: NS 1,000 ML IV SCH ×3 (02:00→21:02)
[2022-06-06] MEDS: ONDANSETRON 4MG 2ML VIAL IV PRN ×3 (02:10→21:02)
[2022-06-06] MEDS ORDERED: LORazepam 2 MG/ML 1ML VIAL IV ONE (04:00)
[2022-06-06] MEDS: MORPHINE 2 MG/ML 1ML VIAL IV PRN ×4 (04:10→14:54)
[2022-06-06] MEDS: INSULIN LISPRO (NovoLOG) PER UNIT SC SCH ×4 (05:54→18:00)
[2022-06-06] MEDS ORDERED: cloNIDine HCL 0.1 MG/24 HR PATCH TOP ONE (06:00)
[2022-06-06 06:30] LABS: BASO % 0.3 % (0.0-1.0); EOS % 0.2 % (0.0-3.0); HEMATOCRIT 44.4 % (36.0-47.0); HEMOGLOBIN 14.5 g/dl (12.0-15.5); LYMPH # 0.7 10^3/uL (1.5-5.0); LYMPH % 11.1 % (24.0-44.0); MEAN CORPUSCULAR HGB CONC 32.7 g/dl (32.0-36.5); MEAN CORPUSCULAR VOLUME 91.7 fl (80.0-96.0); MONO # 0.2 10^3/uL (0.0-0.8); MONO % 3.8 % (2.0-8.0); NEUTROPHILS # 5.3 10^3/uL (1.5-8.5); NEUTROPHILS % 83.5 % (36.0-66.0); PLATELET COUNT, AUTOMATED 248 10^3/uL (150-450); RED BLOOD COUNT 4.84 10^6/uL (4.00-5.40); WHITE BLOOD COUNT 6.3 10^3/uL (4.0-10.0)
[2022-06-06 07:17] LABS: ALBUMIN 3.6 G/DL (3.2-5.2); ALKALINE PHOSPHATASE 65 U/L (46-116); ALT/SGPT 12 U/L (7.0-40); AST/SGOT 23 U/L (<34); BILIRUBIN,TOTAL 1.5 MG/DL (0.3-1.2); BLOOD UREA NITROGEN 8 MG/DL (9-23); CALCIUM LEVEL 8.2 MG/DL (8.5-10.1); CARBON DIOXIDE LEVEL 15 MMOL/L (20-31); CHLORIDE LEVEL 104 MMOL/L (98-107); CREATININE FOR GFR 0.44 MG/DL (0.55-1.30); GLOMERULAR FILTRATION RATE > 60.0 (>58); GLUCOSE, FASTING 136 MG/DL (60-100); MAGNESIUM LEVEL 1.5 MG/DL (1.8-2.4); SODIUM LEVEL 136 MMOL/L (136-145)
[2022-06-06] MEDS ORDERED: MAG SULF 1GM/100ML (MAG RUN) 1 GM in IV 1 EA IV ONE (08:00)
[2022-06-06] MEDS: PANTOPRAZOLE 40MG VIAL IV SCH (08:39)
[2022-06-06] MEDS: PROMETHAZINE 25MG/ML 1ML VIAL IV PRN (12:15)
[2022-06-06] MEDS ORDERED: **hydrALAZINE** 10 MG TAB PO ONE (21:30)
[2022-06-06] MEDS ORDERED: amLODIPine 5 MG TAB PO ONE (23:00)
[2022-06-07 00:05] VITALS: BP 152/90
[2022-06-07] MEDS: NS 1,000 ML IV SCH (04:39)
[2022-06-07] MEDS: ONDANSETRON 4MG 2ML VIAL IV PRN (04:39)
[2022-06-07] MEDS: MORPHINE 2 MG/ML 1ML VIAL IV PRN ×2 (04:40→04:50)
[2022-06-07] MEDS: INSULIN LISPRO (NovoLOG) PER UNIT SC SCH ×2 (06:00)
[2022-06-07 06:41] LABS: BASO % 0.4 % (0.0-1.0); EOS # 0.1 10^3/uL (0.0-0.5); EOS % 1.4 % (0.0-3.0); HEMATOCRIT 39.5 % (36.0-47.0); HEMOGLOBIN 13.3 g/dl (12.0-15.5); LYMPH % 14.5 % (24.0-44.0); MEAN CORPUSCULAR HEMOGLOBIN 30.3 pg (27.0-33.0); MEAN CORPUSCULAR HGB CONC 33.7 g/dl (32.0-36.5); MONO # 0.4 10^3/uL (0.0-0.8); MONO % 6.3 % (2.0-8.0); NEUTROPHILS # 5.4 10^3/uL (1.5-8.5); NEUTROPHILS % 77.1 % (36.0-66.0); PLATELET COUNT, AUTOMATED 298 10^3/uL (150-450); RED BLOOD COUNT 4.39 10^6/uL (4.00-5.40)
[2022-06-07 07:21] LABS: ALBUMIN 3.2 G/DL (3.2-5.2); ALKALINE PHOSPHATASE 67 U/L (46-116); ALT/SGPT 13 U/L (7.0-40); AST/SGOT 9 U/L (<34); BILIRUBIN,TOTAL 1.1 MG/DL (0.3-1.2); BLOOD UREA NITROGEN 9 MG/DL (9-23); CALCIUM LEVEL 8.2 MG/DL (8.5-10.1); CARBON DIOXIDE LEVEL 18 MMOL/L (20-31); CHLORIDE LEVEL 105 MMOL/L (98-107); CREATININE FOR GFR 0.51 MG/DL (0.55-1.30); GLOMERULAR FILTRATION RATE > 60.0 (>58); GLUCOSE, FASTING 125 MG/DL (60-100); MAGNESIUM LEVEL 1.5 MG/DL (1.8-2.4); POTASSIUM SERUM 3.4 MMOL/L (3.5-5.1); SODIUM LEVEL 137 MMOL/L (136-145); TOTAL PROTEIN 5.8 G/DL (5.7-8.2)
[2022-06-07] MEDS ORDERED: MAG SULF 1GM/100ML (MAG RUN) 1 GM in IV 1 EA IV ONE (08:00)
[2022-06-07 08:01] VITALS: BP 127/90
[2022-06-07] MEDS: PANTOPRAZOLE 40MG VIAL IV SCH (08:22)
[2022-06-07] MEDS ORDERED: GABAPENTIN 300 MG CAP PO SCH (09:00)
[2022-06-07] MEDS ORDERED: KCL 10MEQ/100ML SWI (KRUN) 10 MEQ in IV 1 EA IV ONE (09:00)
[2022-06-07] MEDS ORDERED: amLODIPine 5 MG TAB PO SCH (15:00)
[2022-06-07] MEDS ORDERED: OLANZapine 2.5MG TABLET PO SCH (21:00)
[2022-06-07] MEDS ORDERED: ATORVASTATIN 20 MG TAB PO SCH (21:00)
== END 2022-06-07 09:30 | disposition left against medical advice (07) | DRG 394 ==
LOC: M ED 03:57 → M ED INP 12:43 → ENRESERV 13:16 → M MSPAV 15:49
PROVIDERS: ADMIT Surgery; ATTEND Surgery
DX: K43.0 Incisional hernia with obstruction, without gangrene (principal); K56.609 Unspecified intestinal obstruction, unspecified as to partial versus complete obstruction; K21.9 Gastro-esophageal reflux disease without esophagitis; E03.9 Hypothyroidism, unspecified; F31.9 Bipolar disorder, unspecified; F43.10 Post-traumatic stress disorder, unspecified; E11.9 Type 2 diabetes mellitus without complications; Z91.013 Allergy to seafood; Z91.018 Allergy to other foods; Z79.899 Other long term (current) drug therapy; Z79.4 Long term (current) use of insulin; F32.A Depression, unspecified; F41.9 Anxiety disorder, unspecified; I10 Essential (primary) hypertension; D72.829 Elevated white blood cell count, unspecified

== ENCOUNTER → 2022-07-25 | Outpatient (CLI) | payer MEDICARE, MEDICAID ==
[~2022-07-25] MED LIST changes: +ATOR80TA59 PO; +GABA-282 PO; +JARD1TAB PO; +LISI20TA33 PO; +POTA-298 PO; -POTA1TAB14 PO; +TOUJ300I2 SC
[2022-07-25 18:30] LABS: CREATININE, URINE 82.6 MG/DL
[2022-07-25 18:31] LABS: MALB URINE SIEMENS < 3.0 MG/L; MAU/CREAT RATIO 3.6 MCG/MG (0.0-30.0)
[2022-07-25 18:35] LABS: HEMOGLOBIN A1c 8.8 % (4.0-6.0)
== END ==
LOC: M PLALAB 15:05
PROVIDERS: ATTEND Student in an Organized Health Care Education/Training Program
DX: E11.65 Type 2 diabetes mellitus with hyperglycemia (principal)

== ENCOUNTER → 2022-08-30 | Outpatient (CLI) | payer MEDICARE, MEDICAID ==
[~2022-08-30] MED LIST changes: +DICY-61 PO; -DICY10CA13 PO; +DULA3PEN SC; -GABA-283 PO; +GABA-284 PO; +JARD1TAB3 PO; +NICO2GUM8 PO
[2022-08-30 16:01] LABS: FREE T4 1.16 NG/DL (0.89-1.76); THYROID STIMULATING HORMONE 3.565 uIU/ML (0.55-4.78)
== END ==
LOC: M PLALAB 10:51
PROVIDERS: ATTEND Student in an Organized Health Care Education/Training Program
DX: E11.65 Type 2 diabetes mellitus with hyperglycemia (principal); E03.9 Hypothyroidism, unspecified

== ENCOUNTER 2022-09-07 06:53 | Inpatient (IN) | payer MEDICARE, MEDICAID ==
[~2022-09-07] VITALS: Ht 157.5 cm; Wt 109.8 kg
[~2022-09-07 06:53] MED LIST changes: -DICY-61 PO; +DICY10CA13 PO; -DULA3PEN SC; +GABA-283 PO; -GABA-284 PO; -JARD1TAB3 PO; -NICO2GUM8 PO
[2022-09-07 08:24] LABS: BASO # 0.1 10^3/uL (0.0-0.2); BASO % 0.6 % (0.0-1.0); EOS # 0.2 10^3/uL (0.0-0.5); EOS % 2.8 % (0.0-3.0); HEMATOCRIT 45.1 % (36.0-47.0); HEMOGLOBIN 14.7 g/dl (12.0-15.5); LYMPH # 1.6 10^3/uL (1.5-5.0); LYMPH % 18.8 % (24.0-44.0); MEAN CORPUSCULAR HGB CONC 32.6 g/dl (32.0-36.5); MONO # 0.6 10^3/uL (0.0-0.8); MONO % 7.2 % (2.0-8.0); NEUTROPHILS # 5.9 10^3/uL (1.5-8.5); NEUTROPHILS % 70.5 % (36.0-66.0); PLATELET COUNT, AUTOMATED 334 10^3/uL (150-450); RED BLOOD COUNT 5.07 10^6/uL (4.00-5.40); WHITE BLOOD COUNT 8.3 10^3/uL (4.0-10.0)
[2022-09-07 08:42] LABS: LIPASE 26 U/L (12-53)
[2022-09-07 08:44] LABS: ALBUMIN 3.8 G/DL (3.2-5.2); ALKALINE PHOSPHATASE 111 U/L (46-116); ALT/SGPT 20 U/L (7.0-40); AST/SGOT < 8 U/L (<34); BILIRUBIN,DIRECT 0.4 MG/DL (<0.4); BILIRUBIN,TOTAL 1.4 MG/DL (0.3-1.2); TOTAL PROTEIN 6.8 G/DL (5.7-8.2)
[2022-09-07] MEDS ORDERED: ONDANSETRON 4MG 2ML VIAL IV ONE (09:00)
[2022-09-07] MEDS ORDERED: MORPHINE 4 MG/ML 1ML VIAL IV ONE (09:00)
[2022-09-07] MEDS ORDERED: NS 1,000 ML IV ONE (09:00)
[2022-09-07 09:47] LABS: BLOOD UREA NITROGEN 29 MG/DL (9-23); CALCIUM LEVEL 9.2 MG/DL (8.5-10.1); CARBON DIOXIDE LEVEL 24 MMOL/L (20-31); CHLORIDE LEVEL 104 MMOL/L (98-107); CREATININE FOR GFR 0.67 MG/DL (0.55-1.30); GLOMERULAR FILTRATION RATE > 60.0 (>58); GLUCOSE, FASTING 179 MG/DL (60-100); POTASSIUM SERUM 4.1 MMOL/L (3.5-5.1); SODIUM LEVEL 138 MMOL/L (136-145)
[2022-09-07] MEDS: GASTROGRAFIN SOLUTION 30ML PO SCH ×2 (09:47→10:56)
[2022-09-07] MEDS ORDERED: ISOVUE-370 76% 100ML VIAL As Ordered ONE (09:56)
[2022-09-07] MEDS: INSULIN LISPRO (NovoLOG) PER UNIT SC SCH ×2 (12:00→17:57)
[2022-09-07] MEDS ORDERED: MORPHINE 2 MG/ML 1ML VIAL IV ONE (12:25)
[2022-09-07] MEDS ORDERED: MED REC IN PROGRESS XX SCH (12:35)
[2022-09-07 13:28] LABS: RSV AMPLIFICATION NEGATIVE (NEGATIVE)
[2022-09-07] MEDS ORDERED: HOME MED LIST COMPLETE! XX SCH (14:05)
[2022-09-07] MEDS ORDERED: NICO2GUM8 PO (14:05)
[2022-09-07] MEDS ORDERED: TRUL0.5I SC (14:05)
[2022-09-07] MEDS ORDERED: ONDANSETRON 4MG 2ML VIAL IV PRN (14:15)
[2022-09-07] MEDS ORDERED: DEXTROSE 50% 50ML SYRINGE IV PRN (14:15)
[2022-09-07] MEDS ORDERED: KETOROLAC 30 MG/ML 1ML VIAL IV PRN ×2 (14:15)
[2022-09-07] MEDS ORDERED: GLUCAGON INJ 1MG VIAL SC PRN (14:15)
[2022-09-07] MEDS ORDERED: GLUCOSE 4GM CHEW TABLET PO PRN (14:15)
[2022-09-07] MEDS ORDERED: CHLORASEPTIC SPRAY MT PRN (14:55)
[2022-09-07] MEDS: NS 1,000 ML IV SCH (15:11)
[2022-09-07 15:30] VITALS: BP 133/90; TEMP 97.9; O2SAT 98
[2022-09-07] MEDS: NICOTINE 21MG/24HR 1 EA TRANSDERMAL TD SCH (16:12)
[2022-09-07] MEDS: MORPHINE 4 MG/ML 1ML VIAL IV PRN ×2 (17:10→21:27)
[2022-09-07] MEDS ORDERED: OLANZapine INTRAMUSCULAR 10MG VIAL IM SCH (21:00)
[2022-09-07] MEDS: LEVEMIR (INSULIN DETEMIR) 1 UNITS/0.01ML SC SCH (21:00)
[2022-09-07 21:10] VITALS: BP 111/71; TEMP 97.5; O2SAT 95
[2022-09-07] MEDS: ENOXAPARIN 40MG/0.4ML SYRINGE (J1650 PER 10MG) SC SCH (21:28)
[2022-09-08] MEDS: NS 1,000 ML IV SCH (00:32)
[2022-09-08] MEDS: MORPHINE 4 MG/ML 1ML VIAL IV PRN ×2 (02:04→06:04)
[2022-09-08] MEDS: INSULIN LISPRO (NovoLOG) PER UNIT SC SCH ×3 (05:16→12:00)
[2022-09-08 05:20] VITALS: BP 112/71; TEMP 97.5; O2SAT 93
[2022-09-08 06:24] LABS: BLOOD UREA NITROGEN 26 MG/DL (9-23); CALCIUM LEVEL 7.8 MG/DL (8.5-10.1); CARBON DIOXIDE LEVEL 27 MMOL/L (20-31); CHLORIDE LEVEL 109 MMOL/L (98-107); CREATININE FOR GFR 0.54 MG/DL (0.55-1.30); GLOMERULAR FILTRATION RATE > 60.0 (>58); GLUCOSE, FASTING 107 MG/DL (60-100); POTASSIUM SERUM 3.9 MMOL/L (3.5-5.1); SODIUM LEVEL 142 MMOL/L (136-145)
[2022-09-08 06:27] LABS: BASO % 0.7 % (0.0-1.0); EOS # 0.2 10^3/uL (0.0-0.5); EOS % 4.4 % (0.0-3.0); HEMATOCRIT 39.4 % (36.0-47.0); LYMPH % 23.6 % (24.0-44.0); MEAN CORPUSCULAR HEMOGLOBIN 28.9 pg (27.0-33.0); MEAN CORPUSCULAR VOLUME 90.4 fl (80.0-96.0); MONO # 0.6 10^3/uL (0.0-0.8); MONO % 15.8 % (2.0-8.0); NEUTROPHILS # 2.2 10^3/uL (1.5-8.5); NEUTROPHILS % 55.3 % (36.0-66.0); PLATELET COUNT, AUTOMATED 269 10^3/uL (150-450); RED BLOOD COUNT 4.36 10^6/uL (4.00-5.40); WHITE BLOOD COUNT 4.1 10^3/uL (4.0-10.0)
[2022-09-08 07:07] LABS: MAGNESIUM LEVEL 1.6 MG/DL (1.8-2.4)
[2022-09-08 07:10] LABS: HEMOGLOBIN 12.6 g/dl (12.0-15.5)
[2022-09-08] MEDS: LEVEMIR (INSULIN DETEMIR) 1 UNITS/0.01ML SC SCH (09:00)
[2022-09-08] MEDS: NICOTINE 21MG/24HR 1 EA TRANSDERMAL TD SCH (09:00)
[2022-09-08] MEDS: ENOXAPARIN 40MG/0.4ML SYRINGE (J1650 PER 10MG) SC SCH (09:50)
[2022-09-08] MEDS: MAG SULF 1GM/100ML (MAG RUN) 1 GM in IV 1 EA IV SCH ×2 (09:54→10:55)
[2022-09-08] MEDS ORDERED: D5W/0.9% SODIUM CHLORIDE 1,000 ML IV SCH (11:15)
[2022-09-08 14:00] VITALS: BP 117/76; TEMP 97.9; O2SAT 97
== END 2022-09-08 15:21 | disposition left against medical advice (07) | DRG 394 ==
LOC: M ED 06:53 → M ED INP 13:45 → ENRESERV 14:24 → M MSPAV 15:28
PROVIDERS: ADMIT Internal Medicine; ATTEND Internal Medicine
DX: K43.6 Other and unspecified ventral hernia with obstruction, without gangrene (principal); Z68.41 Body mass index [BMI] 40.0-44.9, adult; K56.50 Intestinal adhesions [bands], unspecified as to partial versus complete obstruction; G47.33 Obstructive sleep apnea (adult) (pediatric); I10 Essential (primary) hypertension; E78.5 Hyperlipidemia, unspecified; E66.01 Morbid (severe) obesity due to excess calories; E11.9 Type 2 diabetes mellitus without complications; F39 Unspecified mood [affective] disorder; Z87.891 Personal history of nicotine dependence; Z91.013 Allergy to seafood; Z91.018 Allergy to other foods; Z79.899 Other long term (current) drug therapy; Z79.4 Long term (current) use of insulin

== ENCOUNTER 2022-10-10 07:16 | Inpatient (IN) | payer MEDICARE, MEDICAID ==
[~2022-10-10] VITALS: Ht 157.5 cm; Wt 100.6 kg
[~2022-10-10 07:16] MED LIST changes: +DICY-61 PO; -DICY10CA13 PO; -GABA-283 PO; +GABA-284 PO; +NICO2GUM8 PO
[2022-10-10 08:36] LABS: BASO # 0.1 10^3/uL (0.0-0.2); BASO % 0.8 % (0.0-1.0); EOS # 0.3 10^3/uL (0.0-0.5); EOS % 3.3 % (0.0-3.0); LYMPH # 2.1 10^3/uL (1.5-5.0); LYMPH % 22.5 % (24.0-44.0); MEAN CORPUSCULAR HEMOGLOBIN 28.6 pg (27.0-33.0); MEAN CORPUSCULAR HGB CONC 32.9 g/dl (32.0-36.5); MEAN CORPUSCULAR VOLUME 86.8 fl (80.0-96.0); MONO # 0.6 10^3/uL (0.0-0.8); MONO % 5.9 % (2.0-8.0); NEUTROPHILS # 6.3 10^3/uL (1.5-8.5); NEUTROPHILS % 67.3 % (36.0-66.0); PLATELET COUNT, AUTOMATED 332 10^3/uL (150-450); WHITE BLOOD COUNT 9.3 10^3/uL (4.0-10.0)
[2022-10-10 08:39] LABS: HEMATOCRIT 48.6 % (36.0-47.0)
[2022-10-10 08:58] LABS: LIPASE 24 U/L (12-53)
[2022-10-10 09:00] LABS: ALBUMIN 3.7 G/DL (3.2-5.2); ALKALINE PHOSPHATASE 146 U/L (46-116); ALT/SGPT 19 U/L (7.0-40); AST/SGOT < 8 U/L (<34); BILIRUBIN,DIRECT 0.5 MG/DL (<0.4); BILIRUBIN,TOTAL 1.6 MG/DL (0.3-1.2); BLOOD UREA NITROGEN 25 MG/DL (9-23); CALCIUM LEVEL 9.3 MG/DL (8.5-10.1); CARBON DIOXIDE LEVEL 30 MMOL/L (20-31); CHLORIDE LEVEL 98 MMOL/L (98-107); CREATININE FOR GFR 0.69 MG/DL (0.55-1.30); GLOMERULAR FILTRATION RATE > 60.0 (>58); GLUCOSE, FASTING 186 MG/DL (60-100); POTASSIUM SERUM 4.2 MMOL/L (3.5-5.1); SODIUM LEVEL 139 MMOL/L (136-145); TOTAL PROTEIN 7.2 G/DL (5.7-8.2)
[2022-10-10 09:01] LABS: HCG, SERUM QUALITATIVE NEGATIVE (NEGATIVE)
[2022-10-10] MEDS ORDERED: ISOVUE-370 76% 100ML VIAL As Ordered ONE (10:47)
[2022-10-10] MEDS ORDERED: ONDANSETRON 4MG 2ML VIAL IV ONE (11:30)
[2022-10-10] MEDS ORDERED: NS 1,000 ML IV ONE ×2 (11:30→12:15)
[2022-10-10] MEDS ORDERED: MORPHINE 4 MG/ML 1ML VIAL IV ONE (11:30)
[2022-10-10] MEDS ORDERED: MED REC IN PROGRESS XX SCH (12:10)
[2022-10-10] MEDS ORDERED: ONDANSETRON 4MG 2ML VIAL IV PRN (12:15)
[2022-10-10] MEDS ORDERED: KCL 10MEQ IN D5/0.45NS 1000ML 1,000 ML IV SCH (12:15)
[2022-10-10] MEDS ORDERED: DULA3PEN SC (13:45)
[2022-10-10] MEDS ORDERED: JARD1TAB3 PO (13:45)
[2022-10-10] MEDS ORDERED: HOME MED LIST COMPLETE! XX SCH (13:50)
[2022-10-10] MEDS: MORPHINE 2 MG/ML 1ML VIAL IV PRN ×2 (15:33→20:19)
[2022-10-10] MEDS ORDERED: KETOROLAC 30 MG/ML 1ML VIAL IV SCH (16:00)
[2022-10-10] MEDS ORDERED: GLUCOSE 4GM CHEW TABLET PO PRN (16:20)
[2022-10-10] MEDS ORDERED: DEXTROSE 50% 50ML SYRINGE IV PRN (16:20)
[2022-10-10] MEDS ORDERED: GLUCAGON INJ 1MG VIAL SC PRN (16:20)
[2022-10-10 17:45] LABS: BLOOD UREA NITROGEN 23 MG/DL (9-23); CALCIUM LEVEL 8.2 MG/DL (8.5-10.1); CARBON DIOXIDE LEVEL 32 MMOL/L (20-31); CHLORIDE LEVEL 101 MMOL/L (98-107); CREATININE FOR GFR 0.69 MG/DL (0.55-1.30); GLOMERULAR FILTRATION RATE > 60.0 (>58); GLUCOSE, FASTING 145 MG/DL (60-100); SODIUM LEVEL 140 MMOL/L (136-145)
[2022-10-10] MEDS ORDERED: INSULIN LISPRO (NovoLOG) PER UNIT SC SCH (18:00)
[2022-10-10 19:18] VITALS: TEMP 96.6
[2022-10-10 21:41] VITALS: BP 147/71; O2SAT 98
== END 2022-10-10 21:48 | disposition left against medical advice (07) | DRG 394 ==
LOC: M ED 07:16 → M ED INP 12:12
PROVIDERS: ADMIT General Practice; ATTEND General Practice
DX: K43.6 Other and unspecified ventral hernia with obstruction, without gangrene (principal); Z68.41 Body mass index [BMI] 40.0-44.9, adult; K56.50 Intestinal adhesions [bands], unspecified as to partial versus complete obstruction; E66.01 Morbid (severe) obesity due to excess calories; E11.9 Type 2 diabetes mellitus without complications; F39 Unspecified mood [affective] disorder; I10 Essential (primary) hypertension; E78.5 Hyperlipidemia, unspecified; G47.33 Obstructive sleep apnea (adult) (pediatric); F17.200 Nicotine dependence, unspecified, uncomplicated; Z91.013 Allergy to seafood; Z91.018 Allergy to other foods; Z79.899 Other long term (current) drug therapy; Z79.4 Long term (current) use of insulin; Z91.119 Patient's noncompliance with dietary regimen due to unspecified reason

== ENCOUNTER → 2022-12-13 | Outpatient (CLI) | payer MEDICARE, MEDICAID ==
[~2022-12-13] MED LIST changes: +DULA3PEN SC; +JARD1TAB3 PO
== END ==
LOC: M PLALAB 08:13
PROVIDERS: ATTEND Student in an Organized Health Care Education/Training Program
DX: M25.511 Pain in right shoulder (principal); M25.512 Pain in left shoulder

== ENCOUNTER → 2023-01-29 | Outpatient (CLI) | payer MEDICARE, MEDICAID ==
[~2023-01-29] MED LIST changes: +ACET325C5 PO; +MAGN400T2 PO; +OXYC1TAB23 PO; +POTA-136 PO
[2023-01-29 16:07] LABS: ALBUMIN 3.6 G/DL (3.2-5.2); ALKALINE PHOSPHATASE 95 U/L (46-116); ALT/SGPT 24 U/L (7.0-40); AST/SGOT < 8 U/L (<34); BILIRUBIN,TOTAL 0.7 MG/DL (0.3-1.2); BLOOD UREA NITROGEN 10 MG/DL (9-23); CALCIUM LEVEL 9.6 MG/DL (8.5-10.1); CARBON DIOXIDE LEVEL 30 MMOL/L (20-31); CHLORIDE LEVEL 101 MMOL/L (98-107); CREATININE FOR GFR 0.75 MG/DL (0.55-1.30); GLOMERULAR FILTRATION RATE > 60.0 (>58); GLUCOSE, FASTING 295 MG/DL (60-100); HEMOGLOBIN A1c 8.3 % (4.0-6.0); POTASSIUM SERUM 3.9 MMOL/L (3.5-5.1); SODIUM LEVEL 142 MMOL/L (136-145); TOTAL PROTEIN 6.7 G/DL (5.7-8.2)
== END ==
LOC: M PLALAB 14:12
PROVIDERS: ATTEND Student in an Organized Health Care Education/Training Program
DX: E11.65 Type 2 diabetes mellitus with hyperglycemia (principal)

== ENCOUNTER 2023-04-21 07:02 | Inpatient (IN) | payer MEDICARE, MEDICAID ==
[~2023-04-21] VITALS: Ht 157.5 cm; Wt 104.4 kg
[2023-04-21 09:51] LABS: BASO # 0.1 10^3/uL (0.0-0.2); BASO % 0.3 % (0.0-1.0); EOS # 0.1 10^3/uL (0.0-0.5); EOS % 0.4 % (0.0-3.0); HEMATOCRIT 47.6 % (36.0-47.0); HEMOGLOBIN 16.1 g/dl (12.0-15.5); LYMPH # 1.9 10^3/uL (1.5-5.0); LYMPH % 12.2 % (24.0-44.0); MEAN CORPUSCULAR HEMOGLOBIN 28.3 pg (27.0-33.0); MEAN CORPUSCULAR HGB CONC 33.8 g/dl (32.0-36.5); MEAN CORPUSCULAR VOLUME 83.8 fl (80.0-96.0); MONO # 0.9 10^3/uL (0.0-0.8); MONO % 5.6 % (2.0-8.0); NEUTROPHILS # 12.8 10^3/uL (1.5-8.5); NEUTROPHILS % 81.2 % (36.0-66.0); PLATELET COUNT, AUTOMATED 384 10^3/uL (150-450); RED BLOOD COUNT 5.68 10^6/uL (4.00-5.40); WHITE BLOOD COUNT 15.8 10^3/uL (4.0-10.0)
[2023-04-21 10:16] LABS: LIPASE 45 U/L (12-53)
[2023-04-21 10:18] LABS: ALBUMIN 4.2 G/DL (3.2-5.2); ALKALINE PHOSPHATASE 120 U/L (46-116); ALT/SGPT 23 U/L (7.0-40); AST/SGOT 11 U/L (<34); BILIRUBIN,DIRECT 0.5 MG/DL (<0.4); BILIRUBIN,TOTAL 1.4 MG/DL (0.3-1.2); BLOOD UREA NITROGEN 23 MG/DL (9-23); CALCIUM LEVEL 10.1 MG/DL (8.5-10.1); CARBON DIOXIDE LEVEL 26 MMOL/L (20-31); CHLORIDE LEVEL 98 MMOL/L (98-107); CREATININE FOR GFR 0.67 MG/DL (0.55-1.30); GLOMERULAR FILTRATION RATE > 60.0 (>58); GLUCOSE, FASTING 349 MG/DL (60-100); SODIUM LEVEL 134 MMOL/L (136-145); TOTAL PROTEIN 7.7 G/DL (5.7-8.2)
[2023-04-21 10:21] LABS: HCG, SERUM QUANTITATIVE 6.3 MIU/ML (<4.2)
[2023-04-21 10:28] LABS: HCG, SERUM QUALITATIVE NEGATIVE (NEGATIVE)
[2023-04-21 10:36] LABS: RSV AMPLIFICATION NEGATIVE (NEGATIVE)
[2023-04-21] MEDS ORDERED: ISOVUE-370 76% 100ML VIAL As Ordered ONE (11:19)
[2023-04-21] MEDS: ONDANSETRON 4MG 2ML VIAL IV ONE (11:29)
[2023-04-21] MEDS: NS 1,000 ML IV ONE (11:32)
[2023-04-21] MEDS: MORPHINE 4 MG/ML 1ML VIAL IV ONE (11:32)
[2023-04-21] MEDS ORDERED: MED REC IN PROGRESS XX SCH (12:45)
[2023-04-21] MEDS ORDERED: GLUCAGON INJ 1MG VIAL SC PRN (13:05)
[2023-04-21] MEDS ORDERED: DEXTROSE 50% 50ML SYRINGE IV PRN (13:05)
[2023-04-21] MEDS ORDERED: GLUCOSE 4GM CHEW TABLET PO PRN (13:05)
[2023-04-21] MEDS: MORPHINE 4 MG/ML 1ML VIAL IV PRN (14:33)
[2023-04-21 14:40] VITALS: BP 116/75; TEMP 97.7; O2SAT 93
[2023-04-21] MEDS: NS 1,000 ML IV SCH (14:50)
[2023-04-21] MEDS: INSULIN LISPRO (NovoLOG) PER UNIT SC SCH (14:50)
[2023-04-21] MEDS ORDERED: ONDA4TAB6 SL (15:18)
[2023-04-21] MEDS ORDERED: JARD1TAB3 PO (15:18)
[2023-04-21] MEDS ORDERED: HOME MED LIST COMPLETE! XX SCH (15:25)
[2023-04-21] MEDS: ONDANSETRON 4MG 2ML VIAL IV PRN (15:43)
[2023-04-21] MEDS: MAGNESIUM CITRATE 300ML BTL PO ONE (15:43)
[2023-04-21 19:58] VITALS: BP 154/93; TEMP 97.9; O2SAT 96
[2023-04-21] MEDS: LEVEMIR (INSULIN DETEMIR) 1 UNITS/0.01ML SC SCH (20:07)
[2023-04-22] MEDS: CEPACOL LOZENGE PO PRN (03:05)
[2023-04-22 05:41] VITALS: BP 129/74; TEMP 98.8; O2SAT 96
[2023-04-22 05:55] LABS: BASO % 0.4 % (0.0-1.0); EOS # 0.2 10^3/uL (0.0-0.5); EOS % 2.2 % (0.0-3.0); HEMATOCRIT 39.2 % (36.0-47.0); LYMPH # 1.6 10^3/uL (1.5-5.0); MEAN CORPUSCULAR HEMOGLOBIN 28.4 pg (27.0-33.0); MEAN CORPUSCULAR HGB CONC 32.9 g/dl (32.0-36.5); MEAN CORPUSCULAR VOLUME 86.2 fl (80.0-96.0); MONO # 0.4 10^3/uL (0.0-0.8); MONO % 6.2 % (2.0-8.0); NEUTROPHILS # 4.5 10^3/uL (1.5-8.5); NEUTROPHILS % 66.9 % (36.0-66.0); RED BLOOD COUNT 4.55 10^6/uL (4.00-5.40); WHITE BLOOD COUNT 6.8 10^3/uL (4.0-10.0)
[2023-04-22 05:57] LABS: HEMOGLOBIN 12.9 g/dl (12.0-15.5); PLATELET COUNT, AUTOMATED 289 10^3/uL (150-450)
[2023-04-22 06:21] LABS: BLOOD UREA NITROGEN 19 MG/DL (9-23); CALCIUM LEVEL 8.2 MG/DL (8.5-10.1); CARBON DIOXIDE LEVEL 28 MMOL/L (20-31); CHLORIDE LEVEL 107 MMOL/L (98-107); CREATININE FOR GFR 0.52 MG/DL (0.55-1.30); GLOMERULAR FILTRATION RATE > 60.0 (>58); GLUCOSE, FASTING 109 MG/DL (60-100); POTASSIUM SERUM 3.4 MMOL/L (3.5-5.1); SODIUM LEVEL 142 MMOL/L (136-145)
[2023-04-22] MEDS: ENOXAPARIN 40MG/0.4ML SYRINGE (J1650 PER 10MG) SC SCH (08:06)
[2023-04-22] MEDS ORDERED: KETOROLAC 30 MG/ML 1ML VIAL IV PRN (09:35)
[2023-04-22] MEDS: SENOKOT S TAB PO SCH (10:15)
[2023-04-22] MEDS: INSULIN LISPRO (NovoLOG) PER UNIT SC SCH (12:11)
== END 2023-04-22 14:07 | disposition home or self-care (01) | DRG 394 ==
LOC: M ED 07:02 → M ED INP 13:05 → M MSPAV 14:41
PROVIDERS: ADMIT Internal Medicine Nephrology; ATTEND Internal Medicine Nephrology
DX: K43.6 Other and unspecified ventral hernia with obstruction, without gangrene (principal); Z68.41 Body mass index [BMI] 40.0-44.9, adult; E11.9 Type 2 diabetes mellitus without complications; I10 Essential (primary) hypertension; E78.5 Hyperlipidemia, unspecified; G47.33 Obstructive sleep apnea (adult) (pediatric); K21.9 Gastro-esophageal reflux disease without esophagitis; F43.10 Post-traumatic stress disorder, unspecified; E66.01 Morbid (severe) obesity due to excess calories; E03.9 Hypothyroidism, unspecified; F43.23 Adjustment disorder with mixed anxiety and depressed mood; F25.9 Schizoaffective disorder, unspecified; Z91.013 Allergy to seafood; Z91.018 Allergy to other foods; Z79.4 Long term (current) use of insulin; Z79.899 Other long term (current) drug therapy

== ENCOUNTER 2023-06-06 07:12 | Observation (INO) | payer MEDICARE, MEDICAID ==
[~2023-06-06] VITALS: Ht 157.5 cm; Wt 108.9 kg
[~2023-06-06 07:12] MED LIST changes: +NS 1,000 ML IV ONE; +ONDA4TAB6 SL
[2023-06-06 07:25] VITALS: BP 139/80; TEMP 97.1; O2SAT 98
[2023-06-06] MEDS: ONDANSETRON 4MG 2ML VIAL IV ONE (07:39)
[2023-06-06] MEDS: INSULIN LISPRO (NovoLOG) PER UNIT SC PRN (07:39)
[2023-06-06] MEDS: NS 1,000 ML IV ONE ×2 (07:50→10:56)
[2023-06-06] MEDS ORDERED: ONDANSETRON 4MG 2ML VIAL IV PRN (08:05)
[2023-06-06] MEDS ORDERED: GLUCAGON INJ 1MG VIAL SC PRN (08:10)
[2023-06-06] MEDS ORDERED: DEXTROSE 50% 50ML SYRINGE IV PRN (08:10)
[2023-06-06] MEDS ORDERED: GLUCOSE 4GM CHEW TABLET PO PRN (08:10)
[2023-06-06 08:43] LABS: BASO # 0.1 10^3/uL (0.0-0.2); BASO % 0.7 % (0.0-1.0); EOS # 0.1 10^3/uL (0.0-0.5); EOS % 1.5 % (0.0-3.0); HEMATOCRIT 42.7 % (36.0-47.0); HEMOGLOBIN 14.1 g/dl (12.0-15.5); LYMPH # 1.2 10^3/uL (1.5-5.0); LYMPH % 18.3 % (24.0-44.0); MEAN CORPUSCULAR HEMOGLOBIN 28.9 pg (27.0-33.0); MEAN CORPUSCULAR VOLUME 87.5 fl (80.0-96.0); MONO # 0.4 10^3/uL (0.0-0.8); MONO % 5.5 % (2.0-8.0); NEUTROPHILS % 73.7 % (36.0-66.0); PLATELET COUNT, AUTOMATED 289 10^3/uL (150-450); RED BLOOD COUNT 4.88 10^6/uL (4.00-5.40); WHITE BLOOD COUNT 6.7 10^3/uL (4.0-10.0)
[2023-06-06 09:14] LABS: C REACTIVE PROTEIN QUANTITATIV < 0.40 MG/DL (<1.0)
[2023-06-06 09:16] LABS: ALBUMIN 3.5 G/DL (3.2-5.2); ALKALINE PHOSPHATASE 98 U/L (46-116); ALT/SGPT 25 U/L (7.0-40); AST/SGOT < 8 U/L (<34); BILIRUBIN,TOTAL 1.4 MG/DL (0.3-1.2); BLOOD UREA NITROGEN 12 MG/DL (9-23); CALCIUM LEVEL 8.7 MG/DL (8.5-10.1); CARBON DIOXIDE LEVEL 26 MMOL/L (20-31); CHLORIDE LEVEL 103 MMOL/L (98-107); CREATININE FOR GFR 0.66 MG/DL (0.55-1.30); GLOMERULAR FILTRATION RATE > 60.0 (>58); GLUCOSE, FASTING 392 MG/DL (60-100); POTASSIUM SERUM 3.6 MMOL/L (3.5-5.1); SODIUM LEVEL 137 MMOL/L (136-145); TOTAL PROTEIN 6.4 G/DL (5.7-8.2)
[2023-06-06 09:17] LABS: ACETONE/KETONE 0.43 MMOL/L (0.02-0.27)
[2023-06-06 09:22] LABS: PROCALCITONIN <0.04 ng/ml
[2023-06-06 10:00] LABS: ERYTHROCYTE SEDIMENTATION RATE 23 mm/hr (0-20)
[2023-06-06 10:27] LABS: HEMOGLOBIN A1c 12.4 % (4.0-6.0)
[2023-06-06] MEDS: LEVEMIR (INSULIN DETEMIR) 1 UNITS/0.01ML SC ONE (10:40)
[2023-06-06] MEDS: INSULIN LISPRO (NovoLOG) PER UNIT SC STA (10:53)
[2023-06-06] MEDS ORDERED: NS 1,000 ML IV ONE (11:00)
[2023-06-06] MEDS ORDERED: INSULIN LISPRO (NovoLOG) PER UNIT SC ONE ×2 (11:00)
[2023-06-06] MEDS ORDERED: NS 1,000 ML IV SCH (12:00)
[2023-06-06] MEDS ORDERED: METOCLOPRAMIDE INJ 10MG/2ML VIAL IV SCH (12:00)
[2023-06-06 13:02] LABS: BLOOD UREA NITROGEN 13 MG/DL (9-23); CALCIUM LEVEL 8.4 MG/DL (8.5-10.1); CARBON DIOXIDE LEVEL 28 MMOL/L (20-31); CHLORIDE LEVEL 108 MMOL/L (98-107); CREATININE FOR GFR 0.63 MG/DL (0.55-1.30); GLOMERULAR FILTRATION RATE > 60.0 (>58); GLUCOSE, FASTING 166 MG/DL (60-100); POTASSIUM SERUM 3.5 MMOL/L (3.5-5.1); SODIUM LEVEL 142 MMOL/L (136-145)
== END 2023-06-06 12:37 | disposition home or self-care (01) ==
LOC: M OPP 07:12 → M MS5PR 07:13
PROVIDERS: ADMIT General Practice; ATTEND General Practice
DX: Z12.11 Encounter for screening for malignant neoplasm of colon (principal); Z53.21 Procedure and treatment not carried out due to patient leaving prior to being seen by health care provider; Z91.148 Patient's other noncompliance with medication regimen for other reason; E11.65 Type 2 diabetes mellitus with hyperglycemia; I10 Essential (primary) hypertension; E78.5 Hyperlipidemia, unspecified; G47.33 Obstructive sleep apnea (adult) (pediatric); E03.9 Hypothyroidism, unspecified; K21.9 Gastro-esophageal reflux disease without esophagitis; F43.23 Adjustment disorder with mixed anxiety and depressed mood; F43.10 Post-traumatic stress disorder, unspecified; E66.01 Morbid (severe) obesity due to excess calories; Z91.013 Allergy to seafood; Z91.018 Allergy to other foods; Z79.899 Other long term (current) drug therapy; Z79.4 Long term (current) use of insulin
CPT/HCPCS: 36415; 80048; 80053; 82010; 82140; 83036; 84145; 85025; 85652; 86140; G0378; G0379; J1815; J2405

== ENCOUNTER 2023-07-10 18:50 | Emergency (ER) | payer MEDICARE, MEDICAID ==
[~2023-07-10] VITALS: Ht 157.5 cm; Wt 106.6 kg
[2023-07-10 21:53] LABS: BASO # 0.1 10^3/uL (0.0-0.2); BASO % 0.6 % (0.0-1.0); EOS # 0.2 10^3/uL (0.0-0.5); EOS % 2.3 % (0.0-3.0); HEMATOCRIT 42.2 % (36.0-47.0); HEMOGLOBIN 13.8 g/dl (12.0-15.5); LYMPH # 1.8 10^3/uL (1.5-5.0); MEAN CORPUSCULAR HEMOGLOBIN 28.6 pg (27.0-33.0); MEAN CORPUSCULAR HGB CONC 32.7 g/dl (32.0-36.5); MEAN CORPUSCULAR VOLUME 87.4 fl (80.0-96.0); MONO # 0.4 10^3/uL (0.0-0.8); MONO % 4.7 % (2.0-8.0); NEUTROPHILS # 5.4 10^3/uL (1.5-8.5); NEUTROPHILS % 69.1 % (36.0-66.0); PLATELET COUNT, AUTOMATED 289 10^3/uL (150-450); RED BLOOD COUNT 4.83 10^6/uL (4.00-5.40); WHITE BLOOD COUNT 7.8 10^3/uL (4.0-10.0)
[2023-07-10 22:15] LABS: ALBUMIN 3.6 G/DL (3.2-5.2); ALKALINE PHOSPHATASE 106 U/L (46-116); ALT/SGPT 24 U/L (7.0-40); AST/SGOT 12 U/L (<34); BILIRUBIN,DIRECT 0.2 MG/DL (<0.4); BILIRUBIN,TOTAL 0.7 MG/DL (0.3-1.2); BLOOD UREA NITROGEN 22 MG/DL (9-23); CALCIUM LEVEL 8.8 MG/DL (8.5-10.1); CARBON DIOXIDE LEVEL 29 MMOL/L (20-31); CHLORIDE LEVEL 99 MMOL/L (98-107); GLOMERULAR FILTRATION RATE > 60.0 (>58); GLUCOSE, FASTING 399 MG/DL (60-100); POTASSIUM SERUM 3.9 MMOL/L (3.5-5.1); SODIUM LEVEL 134 MMOL/L (136-145); TOTAL PROTEIN 6.6 G/DL (5.7-8.2)
[2023-07-10] MEDS: NS 1,000 ML IV ONE (22:54)
[2023-07-10] MEDS: ONDANSETRON 4MG 2ML VIAL IV ONE (22:54)
[2023-07-10] MEDS: HumuLIN R (REGULAR) INSULIN (NovoLIN R) **100U/ML** PER UNIT IV ONE (23:00)
[2023-07-10 23:10] LABS: VENOUS BASE EXCESS 0.9 (-2.0-2.0); VENOUS HCO3 26.6 MMOL/L (23.0-27.0); VENOUS O2 SATURATION 85.3 % (60.0-80.0); VENOUS PARTIAL PRESSURE CO2 46.3 mmHg (38.0-50.0); VENOUS PARTIAL PRESSURE O2 51.3 mmHg (30.0-50.0); VENOUS PH 7.377 UNITS (7.330-7.430)
[2023-07-10 23:29] LABS: ACETONE/KETONE 0.09 MMOL/L (0.02-0.27)
[2023-07-10 23:52] VITALS: BP 164/82; TEMP 97.6; O2SAT 96
== END 2023-07-11 01:07 | disposition home or self-care (01) ==
LOC: M ED 18:50
DX: E11.65 Type 2 diabetes mellitus with hyperglycemia (principal); G43.909 Migraine, unspecified, not intractable, without status migrainosus; I10 Essential (primary) hypertension; R16.0 Hepatomegaly, not elsewhere classified; E78.5 Hyperlipidemia, unspecified; J45.909 Unspecified asthma, uncomplicated; Z87.442 Personal history of urinary calculi; Z91.018 Allergy to other foods; Z91.013 Allergy to seafood; Z79.02 Long term (current) use of antithrombotics/antiplatelets; Z79.4 Long term (current) use of insulin; Z79.811 Long term (current) use of aromatase inhibitors; Z79.899 Other long term (current) drug therapy
CPT/HCPCS: 36415; 80048; 80053; 80061; 80076; 82010; 82803; 83036; 85025; 85610; 85730; 96361; 96374; 96375; 99284; G0463; J1815; J2405

== ENCOUNTER → 2023-07-10 | Outpatient (CLI) | payer MEDICARE, MEDICAID ==
[~2023-07-10] MED LIST changes: -NS 1,000 ML IV ONE; -PROC25SU24 PR; +PROC25SU27 PR
[2023-07-10 17:17] LABS: BASO # 0.1 10^3/uL (0.0-0.2); BASO % 0.6 % (0.0-1.0); EOS # 0.1 10^3/uL (0.0-0.5); EOS % 1.6 % (0.0-3.0); HEMATOCRIT 40.9 % (36.0-47.0); HEMOGLOBIN 13.5 g/dl (12.0-15.5); LYMPH # 1.6 10^3/uL (1.5-5.0); LYMPH % 18.6 % (24.0-44.0); MEAN CORPUSCULAR HEMOGLOBIN 29.2 pg (27.0-33.0); MEAN CORPUSCULAR VOLUME 88.5 fl (80.0-96.0); MONO # 0.4 10^3/uL (0.0-0.8); MONO % 4.7 % (2.0-8.0); NEUTROPHILS # 6.3 10^3/uL (1.5-8.5); NEUTROPHILS % 74.1 % (36.0-66.0); PLATELET COUNT, AUTOMATED 294 10^3/uL (150-450); RED BLOOD COUNT 4.62 10^6/uL (4.00-5.40); WHITE BLOOD COUNT 8.5 10^3/uL (4.0-10.0)
[2023-07-10 17:18] LABS: INR 0.87; PARTIAL THROMBOPLASTIN TIME 27.8 SECONDS (24.8-34.2); PROTHROMBIN TIME 11.6 SECONDS (12.5-14.5)
[2023-07-10 17:45] LABS: HEMOGLOBIN A1c 11.8 % (4.0-6.0)
[2023-07-10 17:54] LABS: ALBUMIN 3.2 G/DL (3.2-5.2); ALKALINE PHOSPHATASE 104 U/L (46-116); ALT/SGPT 19 U/L (7.0-40); AST/SGOT < 8 U/L (<34); BILIRUBIN,TOTAL 0.6 MG/DL (0.3-1.2); BLOOD UREA NITROGEN 23 MG/DL (9-23); CALCIUM LEVEL 8.9 MG/DL (8.5-10.1); CARBON DIOXIDE LEVEL 28 MMOL/L (20-31); CHLORIDE LEVEL 98 MMOL/L (98-107); CHOLESTEROL LEVEL 153 MG/DL (<200); CHOLESTEROL RISK RATIO 3.14 (<5); CREATININE FOR GFR 0.64 MG/DL (0.55-1.30); GLOMERULAR FILTRATION RATE > 60.0 (>58); GLUCOSE, FASTING 535 MG/DL (60-100); HDL CHOLESTEROL 48.7 MG/DL (>40); NON-HDL-C 104.3 MG/DL; POTASSIUM SERUM 4.3 MMOL/L (3.5-5.1); SODIUM LEVEL 133 MMOL/L (136-145); TOTAL PROTEIN 6.5 G/DL (5.7-8.2); TRIGLYCERIDES LEVEL 405 MG/DL (<150)
== END ==
LOC: M PLALAB 15:17
PROVIDERS: ATTEND Student in an Organized Health Care Education/Training Program
DX: E11.65 Type 2 diabetes mellitus with hyperglycemia (principal); E78.5 Hyperlipidemia, unspecified; F31.9 Bipolar disorder, unspecified; Z86.39 Personal history of other endocrine, nutritional and metabolic disease

== ENCOUNTER 2023-09-27 22:21 | Inpatient (IN) | payer MEDICARE, MEDICAID ==
[~2023-09-27] VITALS: Ht 165.1 cm; Wt 112.5 kg
[~2023-09-27 22:21] MED LIST changes: +FLUO-365 PO; -FLUO20CA22 PO; +ONDA-282; +ONDA-282 PO; +ONDA-282 SL; -ONDA4TAB6; -ONDA4TAB6 PO; -ONDA4TAB6 SL
[2023-09-27] MEDS ORDERED: MORPHINE 4 MG/ML 1ML VIAL As Ordered ONE (22:42)
[2023-09-27] MEDS: NS 1,000 ML IV ONE (22:48)
[2023-09-27] MEDS: ONDANSETRON 4MG 2ML VIAL IV ONE (22:49)
[2023-09-27] MEDS: MORPHINE 4 MG/ML 1ML VIAL IV ONE (22:51)
[2023-09-27 22:52] LABS: BASO # 0.1 10^3/uL (0.0-0.2); BASO % 0.6 % (0.0-1.0); EOS # 0.1 10^3/uL (0.0-0.5); EOS % 1.1 % (0.0-3.0); HEMATOCRIT 45.2 % (36.0-47.0); HEMOGLOBIN 15.4 g/dl (12.0-15.5); LYMPH # 2.4 10^3/uL (1.5-5.0); LYMPH % 29.9 % (24.0-44.0); MEAN CORPUSCULAR HEMOGLOBIN 29.2 pg (27.0-33.0); MEAN CORPUSCULAR HGB CONC 34.1 g/dl (32.0-36.5); MEAN CORPUSCULAR VOLUME 85.8 fl (80.0-96.0); MONO # 0.4 10^3/uL (0.0-0.8); MONO % 5.2 % (2.0-8.0); NEUTROPHILS # 5.1 10^3/uL (1.5-8.5); NEUTROPHILS % 62.6 % (36.0-66.0); PLATELET COUNT, AUTOMATED 305 10^3/uL (150-450); RED BLOOD COUNT 5.27 10^6/uL (4.00-5.40); WHITE BLOOD COUNT 8.1 10^3/uL (4.0-10.0)
[2023-09-27] MEDS ORDERED: fentaNYL 100 MCG/2 ML INJECTION As Ordered ONE (22:57)
[2023-09-27] MEDS: fentaNYL 100 MCG/2 ML INJECTION IV ONE ×2 (22:59→23:23)
[2023-09-27 23:13] LABS: LIPASE 57 U/L (12-53)
[2023-09-27] MEDS ORDERED: ISOVUE-370 76% 100ML VIAL As Ordered ONE (23:17)
[2023-09-27] MEDS ORDERED: HALOPERIDOL LACTATE 5MG/ML VIAL As Ordered ONE (23:20)
[2023-09-27] MEDS: HALOPERIDOL LACTATE 5MG/ML VIAL IV ONE (23:24)
[2023-09-27 23:29] LABS: ALBUMIN 4.1 G/DL (3.2-5.2); ALKALINE PHOSPHATASE 105 U/L (46-116); ALT/SGPT 27 U/L (7.0-40); AST/SGOT 9 U/L (<34); BILIRUBIN,DIRECT 0.3 MG/DL (<0.4); BILIRUBIN,TOTAL 1.1 MG/DL (0.3-1.2); BLOOD UREA NITROGEN 14 MG/DL (9-23); CALCIUM LEVEL 9.8 MG/DL (8.5-10.1); CARBON DIOXIDE LEVEL 26 MMOL/L (20-31); CHLORIDE LEVEL 100 MMOL/L (98-107); CREATININE FOR GFR 0.53 MG/DL (0.55-1.30); GLOMERULAR FILTRATION RATE > 60.0 (>51); GLUCOSE, FASTING 485 MG/DL (60-100); SODIUM LEVEL 134 MMOL/L (136-145); TOTAL PROTEIN 7.5 G/DL (5.7-8.2)
[2023-09-28] VITALS (7 sets, daily range): BP systolic 140–244; BP diastolic 76–116; TEMP 97.2–97.6; O2SAT 93–97
[2023-09-28] MEDS: HumuLIN R (REGULAR) INSULIN (NovoLIN R) **100U/ML** PER UNIT IV ONE
[2023-09-28] MEDS: NS 1,000 ML IV ONE (00:08)
[2023-09-28] MEDS ORDERED: FEZO45TA PO (00:51)
[2023-09-28] MEDS ORDERED: HOME MED LIST COMPLETE! XX SCH (00:55)
[2023-09-28] MEDS: hydrALAZINE 20MG/ML 1ML VIAL IV STA (01:27)
[2023-09-28] MEDS: METOCLOPRAMIDE INJ 10MG/2ML VIAL IV ONE (02:35)
[2023-09-28] MEDS ORDERED: GLUCAGON INJ 1MG VIAL SC PRN (02:55)
[2023-09-28] MEDS ORDERED: METOCLOPRAMIDE INJ 10MG/2ML VIAL IV PRN (02:55)
[2023-09-28] MEDS ORDERED: DEXTROSE 50% 50ML SYRINGE IV PRN (02:55)
[2023-09-28] MEDS ORDERED: GLUCOSE 4 GM CHEW PO PRN (02:55)
[2023-09-28] MEDS: LR 1,000 ML IV SCH (03:31)
[2023-09-28] MEDS: PROMETHAZINE 25MG/ML 1ML VIAL IV ONE (04:02)
[2023-09-28] MEDS: INSULIN LISPRO (NovoLOG) PER UNIT SC SCH (05:12)
[2023-09-28] MEDS: MORPHINE 4 MG/ML 1ML VIAL IV PRN (05:13)
[2023-09-28] MEDS: ONDANSETRON 4MG 2ML VIAL IV PRN (05:13)
[2023-09-28] MEDS ORDERED: hydrALAZINE 20MG/ML 1ML VIAL IV PRN (07:00)
[2023-09-28 07:27] LABS: BASO % 0.3 % (0.0-1.0); EOS % 0.2 % (0.0-3.0); HEMATOCRIT 41.9 % (36.0-47.0); HEMOGLOBIN 14.2 g/dl (12.0-15.5); LYMPH # 1.1 10^3/uL (1.5-5.0); LYMPH % 9.8 % (24.0-44.0); MEAN CORPUSCULAR HGB CONC 33.9 g/dl (32.0-36.5); MEAN CORPUSCULAR VOLUME 85.7 fl (80.0-96.0); MONO # 0.4 10^3/uL (0.0-0.8); MONO % 3.4 % (2.0-8.0); NEUTROPHILS # 9.9 10^3/uL (1.5-8.5); NEUTROPHILS % 85.8 % (36.0-66.0); PLATELET COUNT, AUTOMATED 284 10^3/uL (150-450); RED BLOOD COUNT 4.89 10^6/uL (4.00-5.40); WHITE BLOOD COUNT 11.6 10^3/uL (4.0-10.0)
[2023-09-28 08:07] LABS: BLOOD UREA NITROGEN 12 MG/DL (9-23); CALCIUM LEVEL 8.6 MG/DL (8.5-10.1); CARBON DIOXIDE LEVEL 26 MMOL/L (20-31); CHLORIDE LEVEL 100 MMOL/L (98-107); FREE T4 1.04 NG/DL (0.89-1.76); GLOMERULAR FILTRATION RATE > 60.0 (>51); GLUCOSE, FASTING 291 MG/DL (60-100); MAGNESIUM LEVEL 1.5 MG/DL (1.8-2.4); POTASSIUM SERUM 3.8 MMOL/L (3.5-5.1); SODIUM LEVEL 134 MMOL/L (136-145); THYROID STIMULATING HORMONE 2.786 uIU/ML (0.55-4.78)
[2023-09-28] MEDS: MAG SULF 1GM/100ML (MAG RUN) 1 GM in IV 1 EA IV SCH (10:20)
[2023-09-28] MEDS: ENOXAPARIN 40MG/0.4ML SYRINGE (J1650 PER 10MG) SC SCH (10:21)
[2023-09-28] MEDS: LEVEMIR (INSULIN DETEMIR) 1 UNITS/0.01ML SC SCH (10:21)
== END 2023-09-28 13:20 | disposition left against medical advice (07) | DRG 389 ==
LOC: M ED 22:21 → EDBEDREQTM 09-28 01:20 → EDBEDREQDT 09-28 01:20 → M ED INP 09-28 02:52 → M PCU 09-28 04:11
PROVIDERS: ADMIT Internal Medicine; ATTEND Internal Medicine
DX: K56.600 Partial intestinal obstruction, unspecified as to cause (principal); Z68.41 Body mass index [BMI] 40.0-44.9, adult; E87.20 Acidosis, unspecified; K43.6 Other and unspecified ventral hernia with obstruction, without gangrene; E11.65 Type 2 diabetes mellitus with hyperglycemia; I10 Essential (primary) hypertension; E78.5 Hyperlipidemia, unspecified; G47.33 Obstructive sleep apnea (adult) (pediatric); E66.01 Morbid (severe) obesity due to excess calories; E03.9 Hypothyroidism, unspecified; K21.9 Gastro-esophageal reflux disease without esophagitis; F25.9 Schizoaffective disorder, unspecified; F43.10 Post-traumatic stress disorder, unspecified; F43.20 Adjustment disorder, unspecified; I16.0 Hypertensive urgency; Z79.4 Long term (current) use of insulin; Z79.899 Other long term (current) drug therapy; Z91.013 Allergy to seafood; Z91.018 Allergy to other foods

== ENCOUNTER 2023-10-27 23:41 | Inpatient (IN) | payer MEDICARE, MEDICAID ==
[~2023-10-27] VITALS: Ht 157.5 cm; Wt 106.2 kg
[~2023-10-27 23:41] MED LIST changes: +FEZO45TA PO
[2023-10-28 00:15] LABS: VENOUS BASE EXCESS -2.7 (-2.0-2.0); VENOUS HCO3 19.6 MMOL/L (23.0-27.0); VENOUS O2 SATURATION 97.1 % (60.0-80.0); VENOUS PARTIAL PRESSURE CO2 28.5 mmHg (38.0-50.0); VENOUS PARTIAL PRESSURE O2 86.9 mmHg (30.0-50.0); VENOUS PH 7.456 UNITS (7.330-7.430); VENOUS STANDARD HCO3 22.3 MMOL/L; VENOUS TOTAL CO2 20.5 MMOL/L (24.0-28.0)
[2023-10-28] MEDS: MORPHINE 4 MG/ML 1ML VIAL IV PRN ×2 (00:32→06:32)
[2023-10-28] MEDS: ONDANSETRON 4MG 2ML VIAL IV ONE (00:33)
[2023-10-28 00:38] LABS: BASO % 0.4 % (0.0-1.0); EOS # 0.1 10^3/uL (0.0-0.5); EOS % 0.5 % (0.0-3.0); HEMATOCRIT 45.2 % (36.0-47.0); HEMOGLOBIN 15.3 g/dl (12.0-15.5); LYMPH # 1.6 10^3/uL (1.5-5.0); LYMPH % 14.6 % (24.0-44.0); MEAN CORPUSCULAR HEMOGLOBIN 29.3 pg (27.0-33.0); MEAN CORPUSCULAR HGB CONC 33.8 g/dl (32.0-36.5); MEAN CORPUSCULAR VOLUME 86.4 fl (80.0-96.0); MONO # 0.4 10^3/uL (0.0-0.8); MONO % 3.8 % (2.0-8.0); NEUTROPHILS # 8.6 10^3/uL (1.5-8.5); NEUTROPHILS % 80.1 % (36.0-66.0); PLATELET COUNT, AUTOMATED 268 10^3/uL (150-450); RED BLOOD COUNT 5.23 10^6/uL (4.00-5.40); WHITE BLOOD COUNT 10.7 10^3/uL (4.0-10.0)
[2023-10-28 00:45] LABS: LIPASE 36 U/L (12-53)
[2023-10-28 01:07] LABS: ALBUMIN 3.8 G/DL (3.2-5.2); ALKALINE PHOSPHATASE 113 U/L (46-116); ALT/SGPT 25 U/L (7.0-40); AST/SGOT 23 U/L (<34); BILIRUBIN,DIRECT 0.3 MG/DL (<0.4); BLOOD UREA NITROGEN 25 MG/DL (9-23); CALCIUM LEVEL 9.3 MG/DL (8.5-10.1); CARBON DIOXIDE LEVEL 21 MMOL/L (20-31); CHLORIDE LEVEL 98 MMOL/L (98-107); CK-MB VALUE MASS < 1.0 NG/ML (<3.6); CPK CREATINE PHOSPHOKINASE 58 U/L (34-145); CREATININE FOR GFR 0.61 MG/DL (0.55-1.30); GLOMERULAR FILTRATION RATE > 60.0 (>51); GLUCOSE, FASTING 607 MG/DL (60-100); MB/CK RELATIVE INDEX 1.72 (< OR =4); POTASSIUM SERUM 4.3 MMOL/L (3.5-5.1); SODIUM LEVEL 130 MMOL/L (136-145); TOTAL PROTEIN 7.2 G/DL (5.7-8.2)
[2023-10-28] MEDS ORDERED: ISOVUE-370 76% 100ML VIAL As Ordered ONE (01:46)
[2023-10-28 02:05] LABS: ACETONE/KETONE 1.62 MMOL/L (0.02-0.27); OSMOLALITY SERUM 313 MOSM/KG (275-295)
[2023-10-28 03:13] LABS: CK-MB VALUE MASS < 1.0 NG/ML (<3.6)
[2023-10-28 03:30] LABS: CPK CREATINE PHOSPHOKINASE 46 U/L (34-145); MB/CK RELATIVE INDEX 2.17 (< OR =4)
[2023-10-28] MEDS: HumuLIN R (REGULAR) INSULIN (NovoLIN R) **100U/ML** PER UNIT SC ONE (05:20)
[2023-10-28] MEDS ORDERED: MOM 30ML SUSPENSION UDC PO PRN (05:35)
[2023-10-28] MEDS ORDERED: ACETAMINOPHEN TAB 650MG DOSE (2X325MG) PO PRN (05:35)
[2023-10-28] MEDS ORDERED: GLUCOSE 4 GM CHEW PO PRN (05:35)
[2023-10-28] MEDS ORDERED: DEXTROSE 50% 50ML SYRINGE IV PRN (05:35)
[2023-10-28] MEDS ORDERED: GLUCAGON INJ 1MG VIAL SC PRN (05:35)
[2023-10-28] MEDS: INSULIN LISPRO (NovoLOG) PER UNIT SC SCH ×2 (05:49→12:21)
[2023-10-28] MEDS: NS 1,000 ML IV SCH (06:32)
[2023-10-28] MEDS: LABETALOL 100MG/20ML VIAL IV STA (06:33)
[2023-10-28] MEDS ORDERED: HOME MED LIST COMPLETE! XX SCH (06:40)
[2023-10-28 06:53] LABS: HEMATOCRIT 45.7 % (36.0-47.0); HEMOGLOBIN 15.7 g/dl (12.0-15.5); MEAN CORPUSCULAR HEMOGLOBIN 29.8 pg (27.0-33.0); MEAN CORPUSCULAR HGB CONC 34.4 g/dl (32.0-36.5); MEAN CORPUSCULAR VOLUME 86.7 fl (80.0-96.0); PLATELET COUNT, AUTOMATED 328 10^3/uL (150-450); RED BLOOD COUNT 5.27 10^6/uL (4.00-5.40)
[2023-10-28 07:24] LABS: THYROID STIMULATING HORMONE 1.962 uIU/ML (0.55-4.78)
[2023-10-28 07:25] LABS: FREE T4 1.37 NG/DL (0.89-1.76)
[2023-10-28 07:27] LABS: ALBUMIN 3.9 G/DL (3.2-5.2); ALKALINE PHOSPHATASE 123 U/L (46-116); ALT/SGPT 26 U/L (7.0-40); AST/SGOT 14 U/L (<34); BILIRUBIN,TOTAL 1.1 MG/DL (0.3-1.2); BLOOD UREA NITROGEN 22 MG/DL (9-23); CARBON DIOXIDE LEVEL 23 MMOL/L (20-31); CHLORIDE LEVEL 100 MMOL/L (98-107); CREATININE FOR GFR 0.59 MG/DL (0.55-1.30); GLOMERULAR FILTRATION RATE > 60.0 (>51); GLUCOSE, FASTING 502 MG/DL (60-100); POTASSIUM SERUM 4.4 MMOL/L (3.5-5.1); SODIUM LEVEL 134 MMOL/L (136-145); TOTAL PROTEIN 7.4 G/DL (5.7-8.2)
[2023-10-28] MEDS: NS 500 ML IV ONE (08:17)
[2023-10-28] MEDS: LEVEMIR (INSULIN DETEMIR) 1 UNITS/0.01ML SC SCH (08:18)
[2023-10-28] MEDS: HEPARIN SOD (PORCINE) 5000UNITS/ML 1ML VIAL/SYRINGE SC SCH ×2 (08:19→14:00)
[2023-10-28] MEDS: INSULIN LISPRO (NovoLOG) PER UNIT SC ONE (08:31)
[2023-10-28] MEDS ORDERED: LEVEMIR (INSULIN DETEMIR) 1 UNITS/0.01ML SC SCH (09:00)
[2023-10-28 09:45] VITALS: BP 164/92; TEMP 97.4; O2SAT 96
[2023-10-28] MEDS ORDERED: LABETALOL 100MG/20ML VIAL IV PRN (10:00)
[2023-10-28 11:51] VITALS: BP 128/76; TEMP 97; O2SAT 94
[2023-10-28] MEDS: PANTOPRAZOLE 40MG VIAL IV SCH (13:00)
[2023-10-28] MEDS: DOXYCYCLINE HYCLATE 100 MG in D5W MINI-BAG PLUS 100 ML IV SCH (14:42)
[2023-10-28] MEDS: PIPERACILLIN/TAZOBACTAM SOD 3.375 GM in D5W MINI-BAG PLUS 50 ML IV SCH ×2 (14:42→21:30)
[2023-10-28] MEDS: ONDANSETRON 4MG 2ML VIAL IV PRN (16:21)
[2023-10-28 16:26] VITALS: BP 131/63; TEMP 97.3; O2SAT 96
[2023-10-28 21:13] VITALS: BP 138/75; TEMP 97.3; O2SAT 96
[2023-10-28 23:46] VITALS: BP 123/63; TEMP 98.1; O2SAT 96
[2023-10-29 03:45] VITALS: BP 135/73; TEMP 97.5; O2SAT 96
[2023-10-29 05:49] LABS: BASO % 0.4 % (0.0-1.0); EOS # 0.1 10^3/uL (0.0-0.5); EOS % 0.6 % (0.0-3.0); HEMATOCRIT 40.4 % (36.0-47.0); LYMPH # 1.3 10^3/uL (1.5-5.0); LYMPH % 15.4 % (24.0-44.0); MEAN CORPUSCULAR HGB CONC 33.9 g/dl (32.0-36.5); MEAN CORPUSCULAR VOLUME 88.4 fl (80.0-96.0); MONO # 0.7 10^3/uL (0.0-0.8); MONO % 8.1 % (2.0-8.0); NEUTROPHILS # 6.4 10^3/uL (1.5-8.5); NEUTROPHILS % 75.3 % (36.0-66.0); PLATELET COUNT, AUTOMATED 305 10^3/uL (150-450); RED BLOOD COUNT 4.57 10^6/uL (4.00-5.40); WHITE BLOOD COUNT 8.5 10^3/uL (4.0-10.0)
[2023-10-29 05:54] LABS: HEMOGLOBIN 13.7 g/dl (12.0-15.5)
[2023-10-29 05:56] LABS: ALBUMIN 3.3 G/DL (3.2-5.2); ALKALINE PHOSPHATASE 98 U/L (46-116); ALT/SGPT 17 U/L (7.0-40); AST/SGOT 12 U/L (<34); BILIRUBIN,TOTAL 0.9 MG/DL (0.3-1.2); BLOOD UREA NITROGEN 26 MG/DL (9-23); CALCIUM LEVEL 9.1 MG/DL (8.5-10.1); CARBON DIOXIDE LEVEL 28 MMOL/L (20-31); CHLORIDE LEVEL 108 MMOL/L (98-107); CREATININE FOR GFR 0.95 MG/DL (0.55-1.30); GLOMERULAR FILTRATION RATE > 60.0 (>51); GLUCOSE, FASTING 207 MG/DL (60-100); POTASSIUM SERUM 4.1 MMOL/L (3.5-5.1); SODIUM LEVEL 142 MMOL/L (136-145); TOTAL PROTEIN 6.4 G/DL (5.7-8.2)
[2023-10-29 07:47] VITALS: BP 155/79; TEMP 96.4; O2SAT 98
[2023-10-29] MEDS: METOCLOPRAMIDE INJ 10MG/2ML VIAL IV SCH (11:43)
[2023-10-29 12:00] VITALS: BP 135/70; TEMP 97.4; O2SAT 95
[2023-10-29] MEDS ORDERED: DEXTROSE 50% 50ML SYRINGE IV PRN (12:25)
[2023-10-29] MEDS ORDERED: GLUCOSE 4 GM CHEW PO PRN (12:25)
[2023-10-29] MEDS ORDERED: GLUCAGON INJ 1MG VIAL SC PRN (12:25)
[2023-10-29] MEDS: DOXYCYCLINE HYCLATE 100MG TABLET PO ONE (15:16)
[2023-10-29 16:06] VITALS: BP 167/78; TEMP 98.4
[2023-10-29] MEDS: INSULIN LISPRO (NovoLOG) PER UNIT SC SCH ×2 (17:30→21:00)
[2023-10-29 20:00] VITALS: BP 138/80; TEMP 97.5; O2SAT 97
[2023-10-29] MEDS: DOXYCYCLINE HYCLATE 100MG TABLET PO SCH (21:32)
[2023-10-29 23:56] VITALS: BP 166/98; TEMP 97.6; O2SAT 95
[2023-10-30 04:00] VITALS: BP 158/90; TEMP 98.2; O2SAT 98
[2023-10-30 06:39] LABS: BASO % 0.4 % (0.0-1.0); EOS # 0.1 10^3/uL (0.0-0.5); HEMATOCRIT 38.2 % (36.0-47.0); HEMOGLOBIN 12.6 g/dl (12.0-15.5); LYMPH # 1.4 10^3/uL (1.5-5.0); LYMPH % 20.5 % (24.0-44.0); MEAN CORPUSCULAR HEMOGLOBIN 29.3 pg (27.0-33.0); MEAN CORPUSCULAR VOLUME 88.8 fl (80.0-96.0); MONO # 0.4 10^3/uL (0.0-0.8); MONO % 6.1 % (2.0-8.0); NEUTROPHILS # 4.8 10^3/uL (1.5-8.5); NEUTROPHILS % 71.6 % (36.0-66.0); PLATELET COUNT, AUTOMATED 267 10^3/uL (150-450); WHITE BLOOD COUNT 6.7 10^3/uL (4.0-10.0)
[2023-10-30 07:29] LABS: BLOOD UREA NITROGEN 17 MG/DL (9-23); CALCIUM LEVEL 8.5 MG/DL (8.5-10.1); CARBON DIOXIDE LEVEL 30 MMOL/L (20-31); CHLORIDE LEVEL 104 MMOL/L (98-107); CREATININE FOR GFR 0.93 MG/DL (0.55-1.30); GLOMERULAR FILTRATION RATE > 60.0 (>51); GLUCOSE, FASTING 175 MG/DL (60-100); SODIUM LEVEL 137 MMOL/L (136-145)
[2023-10-30 07:32] VITALS: BP 180/84; TEMP 96.7; O2SAT 97
[2023-10-30 08:29] VITALS: BP 122/68
[2023-10-30 10:51] LABS: MAGNESIUM LEVEL 1.5 MG/DL (1.8-2.4)
[2023-10-30] MEDS: KCL 40MEQ in NS 1000ML 1,000 ML IV SCH (11:11)
[2023-10-30 12:00] VITALS: BP 136/64; TEMP 97.8; O2SAT 98
[2023-10-30] MEDS: MAG SULF 1GM/100ML (MAG RUN) 1 GM in IV 1 EA IV SCH (12:05)
[2023-10-30 16:00] VITALS: BP 136/56; TEMP 98.6; O2SAT 96
[2023-10-30 20:00] VITALS: BP 149/78; TEMP 97.4; O2SAT 95
[2023-10-31 04:00] VITALS: BP 182/81; TEMP 97.9; O2SAT 98
[2023-10-31 04:06] VITALS: BP 182/94
[2023-10-31] MEDS: hydrALAZINE 20MG/ML 1ML VIAL IV ONE (04:34)
[2023-10-31 05:20] LABS: BASO % 0.6 % (0.0-1.0); EOS # 0.1 10^3/uL (0.0-0.5); EOS % 1.3 % (0.0-3.0); HEMATOCRIT 36.1 % (36.0-47.0); HEMOGLOBIN 12.4 g/dl (12.0-15.5); LYMPH # 1.6 10^3/uL (1.5-5.0); LYMPH % 30.8 % (24.0-44.0); MEAN CORPUSCULAR HEMOGLOBIN 29.7 pg (27.0-33.0); MEAN CORPUSCULAR HGB CONC 34.3 g/dl (32.0-36.5); MEAN CORPUSCULAR VOLUME 86.6 fl (80.0-96.0); MONO # 0.4 10^3/uL (0.0-0.8); MONO % 8.1 % (2.0-8.0); NEUTROPHILS # 3.1 10^3/uL (1.5-8.5); NEUTROPHILS % 58.8 % (36.0-66.0); PLATELET COUNT, AUTOMATED 232 10^3/uL (150-450); RED BLOOD COUNT 4.17 10^6/uL (4.00-5.40); WHITE BLOOD COUNT 5.2 10^3/uL (4.0-10.0)
[2023-10-31 05:40] LABS: BLOOD UREA NITROGEN 13 MG/DL (9-23); CALCIUM LEVEL 8.1 MG/DL (8.5-10.1); CARBON DIOXIDE LEVEL 26 MMOL/L (20-31); CHLORIDE LEVEL 108 MMOL/L (98-107); CREATININE FOR GFR 0.71 MG/DL (0.55-1.30); GLOMERULAR FILTRATION RATE > 60.0 (>51); GLUCOSE, FASTING 184 MG/DL (60-100); MAGNESIUM LEVEL 1.6 MG/DL (1.8-2.4); POTASSIUM SERUM 3.3 MMOL/L (3.5-5.1); SODIUM LEVEL 137 MMOL/L (136-145)
[2023-10-31] MEDS: MAG SULF 1GM/100ML (MAG RUN) 1 GM in IV 1 EA IV SCH (06:26)
[2023-10-31] MEDS: POTASSIUM CHLORIDE 10MEQ SR TABLET PO ONE (06:27)
[2023-10-31 07:59] VITALS: BP 150/85; TEMP 98; O2SAT 97
[2023-10-31] MEDS: MIRALAX *UNIT DOSE* 17GM PACKET PO PRN (09:16)
[2023-10-31] MEDS: ATORVASTATIN 20 MG TAB PO SCH (09:16)
[2023-10-31 09:17] VITALS: BP 150/85
[2023-10-31] MEDS: amLODIPine 5 MG TAB PO SCH (09:17)
[2023-10-31] MEDS: DOCUSATE SODIUM 100MG CAPSULE PO PRN (09:17)
[2023-10-31] MEDS ORDERED: MIRA3350 PO (09:41)
[2023-10-31] MEDS ORDERED: COLA100C5 PO (09:41)
[2023-10-31] MEDS ORDERED: AMOX875T2 PO (09:45)
[2023-10-31] MEDS ORDERED: ONDA-83 PO (09:45)
[2023-10-31] MEDS ORDERED: DOXY100T27 PO (09:45)
== END 2023-10-31 10:53 | disposition home or self-care (01) | DRG 394 ==
LOC: M ED 23:41 → M ED INP 10-28 05:33 → M PCU 10-28 09:37
PROVIDERS: ADMIT Student in an Organized Health Care Education/Training Program; ATTEND Internal Medicine
DX: K43.6 Other and unspecified ventral hernia with obstruction, without gangrene (principal); Z68.41 Body mass index [BMI] 40.0-44.9, adult; L02.211 Cutaneous abscess of abdominal wall; I16.0 Hypertensive urgency; I10 Essential (primary) hypertension; E66.01 Morbid (severe) obesity due to excess calories; E11.65 Type 2 diabetes mellitus with hyperglycemia; F39 Unspecified mood [affective] disorder; F25.9 Schizoaffective disorder, unspecified; E03.9 Hypothyroidism, unspecified; F43.23 Adjustment disorder with mixed anxiety and depressed mood; F43.10 Post-traumatic stress disorder, unspecified; E78.5 Hyperlipidemia, unspecified; G47.33 Obstructive sleep apnea (adult) (pediatric); K21.9 Gastro-esophageal reflux disease without esophagitis; Z91.018 Allergy to other foods; Z91.013 Allergy to seafood; Z79.899 Other long term (current) drug therapy

== ENCOUNTER → 2023-11-06 | Outpatient (REF) | payer MEDICARE, MEDICAID ==
[~2023-11-06] MED LIST changes: +DOXY100T27 PO; +ONDA-83 PO
== END ==
LOC: M SFHCPLAZ 16:08
PROVIDERS: ATTEND Student in an Organized Health Care Education/Training Program
DX: E11.65 Type 2 diabetes mellitus with hyperglycemia (principal); E78.5 Hyperlipidemia, unspecified

== ENCOUNTER 2024-01-04 16:57 | Inpatient (IN) | payer MEDICARE, MEDICAID ==
[~2024-01-04] VITALS: Ht 157.5 cm; Wt 106.8 kg
[~2024-01-04 16:57] MED LIST changes: +GABA-1172 PO; -GABA-282 PO; -OLAN2.5T25 PO; +OLAN2.5T53 PO
[2024-01-04 17:16] VITALS: TEMP 97.1
[2024-01-04] MEDS: METOCLOPRAMIDE INJ 10MG/2ML VIAL IV ONE (17:37)
[2024-01-04] MEDS: MORPHINE 4 MG/ML 1ML VIAL IV PRN (17:37)
[2024-01-04 17:43] LABS: BASO # 0.1 10^3/uL (0.0-0.2); BASO % 0.4 % (0.0-1.0); EOS # 0.1 10^3/uL (0.0-0.5); EOS % 0.6 % (0.0-3.0); HEMATOCRIT 43.2 % (36.0-47.0); HEMOGLOBIN 14.9 g/dl (12.0-15.5); LYMPH # 1.7 10^3/uL (1.5-5.0); LYMPH % 14.9 % (24.0-44.0); MEAN CORPUSCULAR HEMOGLOBIN 29.1 pg (27.0-33.0); MEAN CORPUSCULAR HGB CONC 34.5 g/dl (32.0-36.5); MEAN CORPUSCULAR VOLUME 84.4 fl (80.0-96.0); MONO # 0.5 10^3/uL (0.0-0.8); MONO % 4.4 % (2.0-8.0); NEUTROPHILS # 9.2 10^3/uL (1.5-8.5); NEUTROPHILS % 79.2 % (36.0-66.0); PLATELET COUNT, AUTOMATED 327 10^3/uL (150-450); RED BLOOD COUNT 5.12 10^6/uL (4.00-5.40); WHITE BLOOD COUNT 11.6 10^3/uL (4.0-10.0)
[2024-01-04] MEDS ORDERED: ISOVUE-370 76% 100ML VIAL As Ordered ONE (17:45)
[2024-01-04 18:11] LABS: LIPASE 34 U/L (12-53)
[2024-01-04 18:13] LABS: ALBUMIN 3.7 G/DL (3.2-5.2); ALKALINE PHOSPHATASE 118 U/L (35-104); ALT/SGPT 11 U/L (7.0-40); AST/SGOT < 8 U/L (<34); BILIRUBIN,DIRECT 0.3 MG/DL (<0.4); BILIRUBIN,TOTAL 1.2 MG/DL (0.3-1.2); TOTAL PROTEIN 7.2 G/DL (5.7-8.2)
[2024-01-04] MEDS: HumuLIN R (REGULAR) INSULIN (NovoLIN R) **100U/ML** PER UNIT IV STA (19:03)
[2024-01-04] MEDS ORDERED: HOME MED LIST COMPLETE! XX SCH (19:05)
[2024-01-04 19:29] LABS: ACETONE/KETONE 0.96 MMOL/L (0.02-0.27)
[2024-01-04 19:42] LABS: BLOOD UREA NITROGEN 16 MG/DL (9-23); CARBON DIOXIDE LEVEL 22 MMOL/L (20-31); CHLORIDE LEVEL 99 MMOL/L (98-107); CREATININE FOR GFR 0.62 MG/DL (0.55-1.30); GLOMERULAR FILTRATION RATE > 60.0 (>51); GLUCOSE, FASTING 521 MG/DL (60-100); POTASSIUM SERUM 3.7 MMOL/L (3.5-5.1); SODIUM LEVEL 132 MMOL/L (136-145)
[2024-01-04] MEDS ORDERED: INSULIN LISPRO (NovoLOG) PER UNIT SC STA (19:48)
[2024-01-04] MEDS ORDERED: GLUCAGON INJ 1MG VIAL SC PRN (19:50)
[2024-01-04] MEDS ORDERED: ACETAMINOPHEN 325 MG TAB PO PRN (19:50)
[2024-01-04] MEDS ORDERED: DEXTROSE 50% 50ML SYRINGE IV PRN (19:50)
[2024-01-04] MEDS ORDERED: GLUCOSE 4 GM CHEW PO PRN (19:50)
[2024-01-04] MEDS ORDERED: ONDANSETRON 4MG 2ML VIAL IV PRN (20:30)
[2024-01-04 20:35] LABS: HEMOGLOBIN A1c 12.4 % (4.0-6.0)
[2024-01-04] MEDS: LEVEMIR (INSULIN DETEMIR) 1 UNITS/0.01ML SC SCH (21:00)
[2024-01-04] MEDS ORDERED: ENOXAPARIN 40MG/0.4ML SYRINGE (J1650 PER 10MG) SC SCH (21:00)
[2024-01-04] MEDS: SCOPOLAMINE 1MG TRANSDERMAL PATCH TOP SCH (22:55)
[2024-01-04] MEDS: METOCLOPRAMIDE INJ 10MG/2ML VIAL IV SCH (22:56)
[2024-01-04] MEDS: INSULIN LISPRO (NovoLOG) PER UNIT SC STA (22:57)
[2024-01-04] MEDS: INSULIN LISPRO (NovoLOG) PER UNIT SC SCH (23:11)
[2024-01-04 23:59] LABS: BLOOD UREA NITROGEN 16 MG/DL (9-23); CALCIUM LEVEL 9.2 MG/DL (8.5-10.1); CARBON DIOXIDE LEVEL 26 MMOL/L (20-31); CHLORIDE LEVEL 102 MMOL/L (98-107); CREATININE FOR GFR 0.55 MG/DL (0.55-1.30); GLOMERULAR FILTRATION RATE > 60.0 (>51); GLUCOSE, FASTING 398 MG/DL (60-100); POTASSIUM SERUM 3.6 MMOL/L (3.5-5.1); SODIUM LEVEL 135 MMOL/L (136-145)
[2024-01-05] MEDS: LEVEMIR (INSULIN DETEMIR) 1 UNITS/0.01ML SC SCH (00:41)
[2024-01-05 06:27] LABS: HEMATOCRIT 39.5 % (36.0-47.0); HEMOGLOBIN 13.7 g/dl (12.0-15.5); MEAN CORPUSCULAR HEMOGLOBIN 29.5 pg (27.0-33.0); MEAN CORPUSCULAR HGB CONC 34.7 g/dl (32.0-36.5); MEAN CORPUSCULAR VOLUME 84.9 fl (80.0-96.0); PLATELET COUNT, AUTOMATED 324 10^3/uL (150-450); RED BLOOD COUNT 4.65 10^6/uL (4.00-5.40); WHITE BLOOD COUNT 8.5 10^3/uL (4.0-10.0)
[2024-01-05 06:57] LABS: BLOOD UREA NITROGEN 17 MG/DL (9-23); CALCIUM LEVEL 9.7 MG/DL (8.5-10.1); CARBON DIOXIDE LEVEL 26 MMOL/L (20-31); CHLORIDE LEVEL 107 MMOL/L (98-107); CREATININE FOR GFR 0.55 MG/DL (0.55-1.30); GLOMERULAR FILTRATION RATE > 60.0 (>51); GLUCOSE, FASTING 113 MG/DL (60-100); POTASSIUM SERUM 3.4 MMOL/L (3.5-5.1); SODIUM LEVEL 141 MMOL/L (136-145)
[2024-01-05] MEDS: POTASSIUM CHLORIDE 10MEQ SR TABLET PO ONE (07:55)
[2024-01-05 09:00] VITALS: BP 111/68
[2024-01-05] MEDS ORDERED: LEVEMIR (INSULIN DETEMIR) 1 UNITS/0.01ML SC SCH (09:00)
[2024-01-05 12:15] VITALS: O2SAT 97
== END 2024-01-05 12:45 | disposition left against medical advice (07) | DRG 394 ==
LOC: M ED 16:57 → M ED INP 20:16
PROVIDERS: ADMIT Student in an Organized Health Care Education/Training Program; ATTEND Student in an Organized Health Care Education/Training Program
DX: K43.6 Other and unspecified ventral hernia with obstruction, without gangrene (principal); Z68.41 Body mass index [BMI] 40.0-44.9, adult; E78.5 Hyperlipidemia, unspecified; R11.2 Nausea with vomiting, unspecified; G47.33 Obstructive sleep apnea (adult) (pediatric); I10 Essential (primary) hypertension; E11.65 Type 2 diabetes mellitus with hyperglycemia; E66.813 Obesity, class 3; Z90.13 Acquired absence of bilateral breasts and nipples; Z91.018 Allergy to other foods; Z79.899 Other long term (current) drug therapy; Z79.4 Long term (current) use of insulin

== ENCOUNTER 2024-01-10 14:48 | Observation (INO) | payer MEDICARE, MEDICAID ==
[~2024-01-10] VITALS: Ht 157.5 cm; Wt 107.4 kg
[2024-01-10 15:55] LABS: BASO # 0.1 10^3/uL (0.0-0.2); BASO % 0.6 % (0.0-1.0); EOS # 0.1 10^3/uL (0.0-0.5); EOS % 1.3 % (0.0-3.0); HEMOGLOBIN 14.2 g/dl (12.0-15.5); LYMPH % 19.4 % (24.0-44.0); MEAN CORPUSCULAR HEMOGLOBIN 28.7 pg (27.0-33.0); MEAN CORPUSCULAR HGB CONC 33.8 g/dl (32.0-36.5); MEAN CORPUSCULAR VOLUME 84.8 fl (80.0-96.0); MONO # 0.5 10^3/uL (0.0-0.8); MONO % 4.8 % (2.0-8.0); NEUTROPHILS # 7.4 10^3/uL (1.5-8.5); NEUTROPHILS % 73.5 % (36.0-66.0); PLATELET COUNT, AUTOMATED 275 10^3/uL (150-450); RED BLOOD COUNT 4.95 10^6/uL (4.00-5.40); WHITE BLOOD COUNT 10.1 10^3/uL (4.0-10.0)
[2024-01-10] MEDS ORDERED: ISOVUE-370 76% 100ML VIAL As Ordered ONE (15:59)
[2024-01-10] MEDS: METOCLOPRAMIDE INJ 10MG/2ML VIAL IV ONE (16:06)
[2024-01-10] MEDS: MORPHINE 4 MG/ML 1ML VIAL IV ONE ×2 (16:07→17:37)
[2024-01-10 16:26] LABS: ALBUMIN 3.6 G/DL (3.2-5.2); BILIRUBIN,DIRECT 0.2 MG/DL (<0.4); BILIRUBIN,TOTAL 0.8 MG/DL (0.3-1.2); TOTAL PROTEIN 7.1 G/DL (5.7-8.2)
[2024-01-10] MEDS: INSULIN LISPRO (NovoLOG) PER UNIT SC SCH (18:00)
[2024-01-10 18:47] VITALS: BP 206/108
[2024-01-10] MEDS: hydrALAZINE 20MG/ML 1ML VIAL IV STA (18:47)
[2024-01-10] MEDS ORDERED: HOME MED LIST COMPLETE! XX SCH (20:00)
[2024-01-10] MEDS ORDERED: ACETAMINOPHEN 325 MG TAB PO PRN (20:50)
[2024-01-10] MEDS ORDERED: MOM 30ML SUSPENSION UDC PO PRN (20:50)
[2024-01-10] MEDS ORDERED: DEXTROSE 50% 50ML SYRINGE IV PRN (21:00)
[2024-01-10] MEDS ORDERED: GLUCOSE 4 GM CHEW PO PRN (21:00)
[2024-01-10] MEDS ORDERED: GLUCAGON INJ 1MG VIAL SC PRN (21:00)
[2024-01-10] MEDS: MORPHINE 2 MG/ML 1ML VIAL IV PRN (21:50)
[2024-01-10 22:20] VITALS: BP 149/85; TEMP 97.7; O2SAT 95
[2024-01-11] MEDS: MAALOX 30 ML SUSP *UDC PO PRN (00:25)
[2024-01-11 01:05] LABS: BLOOD UREA NITROGEN 14 MG/DL (9-23); CALCIUM LEVEL 8.6 MG/DL (8.5-10.1); CARBON DIOXIDE LEVEL 28 MMOL/L (20-31); CHLORIDE LEVEL 101 MMOL/L (98-107); GLOMERULAR FILTRATION RATE > 60.0 (>51); GLUCOSE, FASTING 326 MG/DL (60-100); POTASSIUM SERUM 3.7 MMOL/L (3.5-5.1); SODIUM LEVEL 137 MMOL/L (136-145)
[2024-01-11] MEDS ORDERED: SODIUM CHLORIDE 0.9% 1000 ML IV ONE (02:35)
[2024-01-11] MEDS: NS 1,000 ML IV SCH (03:34)
[2024-01-11 04:05] VITALS: BP 119/82; TEMP 98.1; O2SAT 95
[2024-01-11] MEDS: METOCLOPRAMIDE INJ 10MG/2ML VIAL IV PRN (04:26)
[2024-01-11 06:54] LABS: APPEARANCE, URINE CLEAR (CLEAR); BACTERIA, URINE AUTO NEGATIVE (NEGATIVE); BILIRUBIN, URINE AUTO NEGATIVE (NEGATIVE); BLOOD, URINE BLOOD 1+ (NEGATIVE); COLOR, URINE YELLOW (YELLOW); GLUCOSE, URINE (UA) AUTO 3+ mg/dL (NEGATIVE); KETONE, URINE AUTO 1+ mg/dL (NEGATIVE); LEUKOCYTE ESTERASE, URINE AUTO NEGATIVE (NEGATIVE); MUCUS, URINE SMALL (NEGATIVE); NITRITE, URINE AUTO NEGATIVE (NEGATIVE); PROTEIN, URINE AUTO NEGATIVE (NEGATIVE); RBC, URINE AUTO 0 /HPF (0-3); SPECIFIC GRAVITY URINE AUTO 1.027 (1.002-1.035); SQUAMOUS EPITHELIAL CELL UR AU 0 /HPF (0-6); UROBILINOGEN, URINE AUTO 0.2 mg/dL (0.0-2.0); WBC, URINE AUTO 1 /HPF (0-3)
[2024-01-11] MEDS: MOM 30ML SUSPENSION UDC PO ONE (08:06)
[2024-01-11] MEDS: ENOXAPARIN 40MG/0.4ML SYRINGE (J1650 PER 10MG) SC SCH (08:07)
[2024-01-11] MEDS: ATORVASTATIN 20 MG TAB PO SCH (10:12)
[2024-01-11 12:00] VITALS: BP 120/80; TEMP 97.6; O2SAT 96
[2024-01-11 12:15] VITALS: BP 130/80; TEMP 97.8; O2SAT 92
[2024-01-11] MEDS: ONDANSETRON 4MG 2ML VIAL IV PRN (12:44)
[2024-01-11] MEDS ORDERED: METOCLOPRAMIDE INJ 10MG/2ML VIAL IV SCH ×2 (13:00→19:00)
[2024-01-11] MEDS ORDERED: KCL 40MEQ in NS 1000ML 1,000 ML IV SCH (14:00)
[2024-01-11] MEDS ORDERED: LEVEMIR (INSULIN DETEMIR) 1 UNITS/0.01ML SC SCH (21:00)
== END 2024-01-11 13:51 | disposition left against medical advice (07) ==
LOC: EDBD 14:48 → M ED 14:48 → M ED INP 20:48 → M MS5PR 22:17
PROVIDERS: ADMIT Student in an Organized Health Care Education/Training Program; ATTEND Student in an Organized Health Care Education/Training Program
DX: K56.699 Other intestinal obstruction unspecified as to partial versus complete obstruction (principal); I16.0 Hypertensive urgency; E11.9 Type 2 diabetes mellitus without complications; E78.5 Hyperlipidemia, unspecified; K43.6 Other and unspecified ventral hernia with obstruction, without gangrene; Z79.4 Long term (current) use of insulin; Z79.899 Other long term (current) drug therapy
CPT/HCPCS: 36415; 74021; 74177; 80047; 80048; 80076; 81001; 83605; 83690; 85025; 93005; 96372; 96374; 96375; 96376; 99285; G0378; J0360; J1650; J1815; J2405; J2765; Q9967

== ENCOUNTER → 2024-03-04 | Outpatient (CLI) | payer MEDICARE, MEDICAID ==
[2024-03-04 13:28] LABS: HEMOGLOBIN A1c 11.6 % (4.0-6.0)
== END ==
LOC: M PLALAB 11:08
PROVIDERS: ATTEND Student in an Organized Health Care Education/Training Program
DX: E11.65 Type 2 diabetes mellitus with hyperglycemia (principal)

== ENCOUNTER → 2024-03-07 | Outpatient (CLI) | payer MEDICARE, MEDICAID ==
[~2024-03-07] MED LIST changes: +AMLO1TAB24 PO; +LISI40TA4 PO; +SEMA2PEN SC
[2024-03-07 18:24] LABS: MAU/CREAT RATIO 43.4 MCG/MG (0.0-30.0)
[2024-03-07 18:25] LABS: ALBUMIN 3.7 G/DL (3.2-5.2); ALKALINE PHOSPHATASE 119 U/L (35-104); ALT/SGPT 28 U/L (7.0-40); APPEARANCE, URINE HAZY (CLEAR); AST/SGOT 37 U/L (<34); BACTERIA, URINE AUTO 1+ (NEGATIVE); BILIRUBIN, URINE AUTO NEGATIVE (NEGATIVE); BILIRUBIN,TOTAL 1.2 MG/DL (0.3-1.2); BLOOD UREA NITROGEN 15 MG/DL (9-23); BLOOD, URINE BLOOD 1+ (NEGATIVE); CALCIUM LEVEL 9.1 MG/DL (8.5-10.1); CARBON DIOXIDE LEVEL 28 MMOL/L (20-31); CHLORIDE LEVEL 99 MMOL/L (98-107); CHOLESTEROL LEVEL 193 MG/DL (<200); CHOLESTEROL RISK RATIO 3.97 (<5); COLOR, URINE YELLOW (YELLOW); CREATININE FOR GFR 0.61 MG/DL (0.55-1.30); GLOMERULAR FILTRATION RATE > 60.0 (>51); GLUCOSE, FASTING 262 MG/DL (60-100); GLUCOSE, URINE (UA) AUTO 3+ mg/dL (NEGATIVE); HDL CHOLESTEROL 48.5 MG/DL (>40); KETONE, URINE AUTO TRACE mg/dL (NEGATIVE); LDL CHOLESTEROL 94.7 MG/DL (<100); LEUKOCYTE ESTERASE, URINE AUTO NEGATIVE (NEGATIVE); MUCUS, URINE SMALL (NEGATIVE); NITRITE, URINE AUTO NEGATIVE (NEGATIVE); NON-HDL-C 144.5 MG/DL; POTASSIUM SERUM 3.9 MMOL/L (3.5-5.1); PROTEIN, URINE AUTO 1+ mg/dL (NEGATIVE); RBC, URINE AUTO 5 /HPF (0-3); SODIUM LEVEL 138 MMOL/L (136-145); SQUAMOUS EPITHELIAL CELL UR AU 12 /HPF (0-6); TOTAL PROTEIN 7.1 G/DL (5.7-8.2); TRIGLYCERIDES LEVEL 249 MG/DL (<150); UROBILINOGEN, URINE AUTO 0.2 mg/dL (0.0-2.0); WBC, URINE AUTO 4 /HPF (0-3)
== END ==
LOC: M PLALAB 14:34
PROVIDERS: ATTEND Student in an Organized Health Care Education/Training Program
DX: E11.65 Type 2 diabetes mellitus with hyperglycemia (principal); E78.5 Hyperlipidemia, unspecified

== ENCOUNTER 2024-04-08 23:10 | Inpatient (IN) | payer MEDICARE, MEDICAID ==
[~2024-04-08] VITALS: Ht 157.5 cm; Wt 112.3 kg
[~2024-04-08 23:10] MED LIST changes: -AMLO1TAB24 PO; -LISI40TA4 PO; -SEMA2PEN SC
[2024-04-09] VITALS (9 sets, daily range): BP systolic 151–166; BP diastolic 84–89; TEMP 97–99.3; O2SAT 92–97
[2024-04-09] MEDS: PANTOPRAZOLE 40MG VIAL IV ONE (00:05)
[2024-04-09] MEDS: MORPHINE 4 MG/ML 1ML VIAL IV ONE (00:05)
[2024-04-09] MEDS: PROMETHAZINE 25MG/ML 1ML VIAL IM ONE (00:05)
[2024-04-09] MEDS: NS (Normal Saline) 0.9% 1,000 ML IV ONE (00:06)
[2024-04-09 00:14] LABS: VENOUS BASE EXCESS 2.3 (-2.0-2.0); VENOUS HCO3 20.9 MMOL/L (23.0-27.0); VENOUS PARTIAL PRESSURE CO2 20.7 mmHg (38.0-50.0); VENOUS PARTIAL PRESSURE O2 159.5 mmHg (30.0-50.0); VENOUS PH 7.623 UNITS (7.330-7.430); VENOUS STANDARD HCO3 26.5 MMOL/L; VENOUS TOTAL CO2 21.6 MMOL/L (24.0-28.0)
[2024-04-09 00:15] LABS: BASO # 0.1 10^3/uL (0.0-0.2); BASO % 0.4 % (0.0-1.0); EOS # 0.1 10^3/uL (0.0-0.5); EOS % 0.4 % (0.0-3.0); HEMATOCRIT 43.8 % (36.0-47.0); LYMPH # 1.3 10^3/uL (1.5-5.0); LYMPH % 9.8 % (24.0-44.0); MEAN CORPUSCULAR HEMOGLOBIN 28.7 pg (27.0-33.0); MEAN CORPUSCULAR HGB CONC 34.2 g/dl (32.0-36.5); MEAN CORPUSCULAR VOLUME 83.7 fl (80.0-96.0); MONO # 0.4 10^3/uL (0.0-0.8); MONO % 2.9 % (2.0-8.0); NEUTROPHILS # 11.5 10^3/uL (1.5-8.5); NEUTROPHILS % 85.9 % (36.0-66.0); PLATELET COUNT, AUTOMATED 362 10^3/uL (150-450); RED BLOOD COUNT 5.23 10^6/uL (4.00-5.40); WHITE BLOOD COUNT 13.4 10^3/uL (4.0-10.0)
[2024-04-09 00:40] LABS: BLOOD UREA NITROGEN 12 MG/DL (9-23); CALCIUM LEVEL 9.4 MG/DL (8.5-10.1); CARBON DIOXIDE LEVEL 22 MMOL/L (20-31); CHLORIDE LEVEL 104 MMOL/L (98-107); CREATININE FOR GFR 0.63 MG/DL (0.55-1.30); GLOMERULAR FILTRATION RATE > 60.0 (>51); GLUCOSE, FASTING 265 MG/DL (60-100); POTASSIUM SERUM 3.6 MMOL/L (3.5-5.1); SODIUM LEVEL 142 MMOL/L (136-145)
[2024-04-09] MEDS: CAPSAICIN 0.025% CR 60 GM TOP ONE (01:23)
[2024-04-09] MEDS: ONDANSETRON 4MG 2ML VIAL IV ONE (01:23)
[2024-04-09] MEDS ORDERED: GLUCAGON INJ 1MG VIAL SC PRN (02:40)
[2024-04-09] MEDS ORDERED: GLUCOSE 4 GM CHEW PO PRN (02:40)
[2024-04-09] MEDS ORDERED: DEXTROSE 50% 50ML SYRINGE IV PRN (02:40)
[2024-04-09] MEDS: MORPHINE 4 MG/ML 1ML VIAL IV PRN (03:09)
[2024-04-09] MEDS: NS (Normal Saline) 0.9% 1,000 ML IV SCH (03:10)
[2024-04-09] MEDS: hydrALAZINE 20MG/ML 1ML VIAL IV ONE (04:36)
[2024-04-09] MEDS: metroNIDAZOLE 500 MG in IV 1 EA IV SCH (04:53)
[2024-04-09] MEDS ORDERED: SEMA2PEN SC (05:06)
[2024-04-09] MEDS ORDERED: LISI40TA4 PO (05:06)
[2024-04-09] MEDS ORDERED: AMLO1TAB24 PO (05:06)
[2024-04-09] MEDS ORDERED: HOME MED LIST COMPLETE! XX SCH (05:10)
[2024-04-09] MEDS: KETOROLAC 30 MG/ML 1ML VIAL IV PRN (05:18)
[2024-04-09] MEDS: INSULIN LISPRO (NovoLOG) PER UNIT SC SCH (06:46)
[2024-04-09 07:00] LABS: HEMATOCRIT 42.6 % (36.0-47.0); HEMOGLOBIN 14.4 g/dl (12.0-15.5); MEAN CORPUSCULAR HEMOGLOBIN 28.6 pg (27.0-33.0); MEAN CORPUSCULAR HGB CONC 33.8 g/dl (32.0-36.5); MEAN CORPUSCULAR VOLUME 84.7 fl (80.0-96.0); PLATELET COUNT, AUTOMATED 360 10^3/uL (150-450); RED BLOOD COUNT 5.03 10^6/uL (4.00-5.40); WHITE BLOOD COUNT 12.7 10^3/uL (4.0-10.0)
[2024-04-09 07:25] LABS: ALBUMIN 3.8 G/DL (3.2-5.2); ALKALINE PHOSPHATASE 97 U/L (35-104); ALT/SGPT 11 U/L (7.0-40); AST/SGOT 10 U/L (<34); BILIRUBIN,TOTAL 1.5 MG/DL (0.3-1.2); BLOOD UREA NITROGEN 14 MG/DL (9-23); CALCIUM LEVEL 8.8 MG/DL (8.5-10.1); CARBON DIOXIDE LEVEL 23 MMOL/L (20-31); CHLORIDE LEVEL 106 MMOL/L (98-107); GLOMERULAR FILTRATION RATE > 60.0 (>51); GLUCOSE, FASTING 156 MG/DL (60-100); POTASSIUM SERUM 3.6 MMOL/L (3.5-5.1); SODIUM LEVEL 144 MMOL/L (136-145); TOTAL PROTEIN 7.3 G/DL (5.7-8.2)
[2024-04-09] MEDS ORDERED: hydrALAZINE 20MG/ML 1ML VIAL IV PRN (07:25)
[2024-04-09] MEDS: ONDANSETRON 4MG 2ML VIAL IV PRN (09:18)
[2024-04-09] MEDS: PANTOPRAZOLE 40MG VIAL IV SCH (09:19)
[2024-04-09] MEDS: MORPHINE 2 MG/ML 1ML VIAL IV PRN (09:19)
[2024-04-09] MEDS: D5W/0.9% SODIUM CHLORIDE 1,000 ML IV SCH (12:59)
== END 2024-04-09 18:30 | disposition left against medical advice (07) | DRG 394 ==
LOC: EDBD 23:10 → M ED 23:10 → M ED INP 04-09 02:38 → M PCU 04-09 18:14
PROVIDERS: ADMIT Student in an Organized Health Care Education/Training Program; ATTEND Student in an Organized Health Care Education/Training Program
DX: K43.6 Other and unspecified ventral hernia with obstruction, without gangrene (principal); Z68.41 Body mass index [BMI] 40.0-44.9, adult; F25.9 Schizoaffective disorder, unspecified; E11.9 Type 2 diabetes mellitus without complications; I10 Essential (primary) hypertension; I16.0 Hypertensive urgency; E78.5 Hyperlipidemia, unspecified; G47.33 Obstructive sleep apnea (adult) (pediatric); E66.01 Morbid (severe) obesity due to excess calories; F31.9 Bipolar disorder, unspecified; Z79.899 Other long term (current) drug therapy; Z79.4 Long term (current) use of insulin; F12.90 Cannabis use, unspecified, uncomplicated; F17.200 Nicotine dependence, unspecified, uncomplicated; Z91.013 Allergy to seafood; Z91.018 Allergy to other foods

== ENCOUNTER → 2024-09-16 | Outpatient (REF) | payer MEDICARE, MEDICAID ==
[~2024-09-16] MED LIST changes: +AMLO1TAB24 PO; +LISI40TA10 PO; +SEMA2PEN SC
[2024-09-16 14:59] LABS: APPEARANCE, URINE HAZY (CLEAR); BACTERIA, URINE AUTO 1+ (NEGATIVE); BILIRUBIN, URINE AUTO NEGATIVE (NEGATIVE); BLOOD, URINE BLOOD NEGATIVE (NEGATIVE); GLUCOSE, URINE (UA) AUTO 1+ mg/dL (NEGATIVE); KETONE, URINE AUTO NEGATIVE (NEGATIVE); LEUKOCYTE ESTERASE, URINE AUTO TRACE (NEGATIVE); MUCUS, URINE SMALL (NEGATIVE); NITRITE, URINE AUTO NEGATIVE (NEGATIVE); PROTEIN, URINE AUTO NEGATIVE (NEGATIVE); RBC, URINE AUTO 1 /HPF (0-3); SPECIFIC GRAVITY URINE AUTO 1.021 (1.002-1.035); SQUAMOUS EPITHELIAL CELL UR AU 4 /HPF (0-6); UROBILINOGEN, URINE AUTO 0.2 mg/dL (0.0-2.0); WBC, URINE AUTO 3 /HPF (0-3)
[2024-09-16 15:26] LABS: CREATININE, URINE 106.4 MG/DL
[2024-09-16 15:28] LABS: MALB URINE SIEMENS < 3.0 MG/L
[2024-09-16 18:49] LABS: BASO # 0.1 10^3/uL (0.0-0.2); BASO % 0.6 % (0.0-1.0); EOS # 0.1 10^3/uL (0.0-0.5); EOS % 1.2 % (0.0-3.0); LYMPH # 2.3 10^3/uL (1.5-5.0); LYMPH % 21.6 % (24.0-44.0); MONO # 0.5 10^3/uL (0.0-0.8); MONO % 4.4 % (2.0-8.0); NEUTROPHILS # 7.5 10^3/uL (1.5-8.5); NEUTROPHILS % 71.8 % (36.0-66.0); PLATELET COUNT, AUTOMATED 333 10^3/uL (150-450)
[2024-09-16 18:50] LABS: CHOLESTEROL LEVEL 194.0 MG/DL (<200); CHOLESTEROL RISK RATIO 3.68 (<5); LDL CHOLESTEROL 90.4 MG/DL (<100); NON-HDL-C 141.4 MG/DL; TRIGLYCERIDES LEVEL 255.0 MG/DL (<150)
== END ==
LOC: M LAB REF 13:33
PROVIDERS: ATTEND Nurse Practitioner Family
DX: E11.9 Type 2 diabetes mellitus without complications (principal); Z79.4 Long term (current) use of insulin; R82.71 Bacteriuria; E66.01 Morbid (severe) obesity due to excess calories; D72.829 Elevated white blood cell count, unspecified

== ENCOUNTER 2024-10-09 11:49 | Emergency (ER) | payer MEDICARE, MEDICAID ==
[~2024-10-09] VITALS: Ht 157.5 cm; Wt 112.3 kg
[2024-10-09 11:57] VITALS: BP 222/145; TEMP 100.6; O2SAT 99
== END 2024-10-09 12:28 | disposition left against medical advice (07) ==
LOC: M ED 11:49
DX: Z53.21 Procedure and treatment not carried out due to patient leaving prior to being seen by health care provider (principal)

== ENCOUNTER 2024-10-09 12:54 | Inpatient (IN) | payer MEDICARE, MEDICAID ==
[~2024-10-09] VITALS: Ht 157.5 cm; Wt 111.0 kg
[2024-10-09] MEDS: NS (Normal Saline) 0.9% 1,000 ML IV SCH ×2 (13:16→21:55)
[2024-10-09] MEDS: MORPHINE 4 MG/ML 1 ML VIAL IV PRN ×2 (13:35→18:29)
[2024-10-09] MEDS: ONDANSETRON 4MG 2ML VIAL IV ONE (13:35)
[2024-10-09] MEDS: GASTROGRAFIN SOLUTION 30ML PO SCH (14:00)
[2024-10-09] MEDS: PROMETHAZINE 25MG/ML 1ML VIAL IV ONE (14:01)
[2024-10-09 14:08] LABS: HCG, SERUM QUALITATIVE NEGATIVE (NEGATIVE)
[2024-10-09 14:22] LABS: ALT/SGPT 19 U/L (7.0-40); AST/SGOT 20 U/L (<34); CALCIUM LEVEL 9.2 MG/DL (8.5-10.1); CARBON DIOXIDE LEVEL 21 MMOL/L (20-31); CHLORIDE LEVEL 103 MMOL/L (98-107); CREATININE FOR GFR 0.68 MG/DL (0.55-1.30); GLOMERULAR FILTRATION RATE > 90.0 (>51); POTASSIUM SERUM 3.5 MMOL/L (3.5-5.1); SODIUM LEVEL 141 MMOL/L (136-145)
[2024-10-09] MEDS ORDERED: ISOVUE-370 76% 100 ML VIAL As Ordered ONE (14:35)
[2024-10-09 15:04] LABS: BASO # 0.0 10^3/uL (0.0-0.2); BASO % 0.2 % (0.0-1.0); EOS # 0.0 10^3/uL (0.0-0.5); EOS % 0.2 % (0.0-3.0); LYMPH # 1.1 10^3/uL (1.5-5.0); LYMPH % 7.0 % (24.0-44.0); MONO # 0.3 10^3/uL (0.0-0.8); MONO % 2.2 % (2.0-8.0); NEUTROPHILS # 13.4 10^3/uL (1.5-8.5); NEUTROPHILS % 89.5 % (36.0-66.0); PLATELET COUNT, AUTOMATED 307 10^3/uL (150-450)
[2024-10-09 15:36] LABS: ALT/SGPT 20 U/L (7.0-40); AST/SGOT 21 U/L (<34); CALCIUM LEVEL 8.9 MG/DL (8.5-10.1); CARBON DIOXIDE LEVEL 24 MMOL/L (20-31); CHLORIDE LEVEL 101 MMOL/L (98-107); CREATININE FOR GFR 0.68 MG/DL (0.55-1.30); GLOMERULAR FILTRATION RATE > 90.0 (>51); POTASSIUM SERUM 3.7 MMOL/L (3.5-5.1); SODIUM LEVEL 140 MMOL/L (136-145)
[2024-10-09] MEDS ORDERED: HOME MED LIST COMPLETE! XX SCH (16:00)
[2024-10-09] MEDS ORDERED: MORPHINE 10 MG/ML 1 ML VIAL IV PRN (16:30)
[2024-10-09] MEDS ORDERED: GLUCAGON INJ 1 MG VIAL SC PRN (16:35)
[2024-10-09] MEDS ORDERED: DEXTROSE 50% 50 ML SYRINGE IV PRN (16:35)
[2024-10-09] MEDS ORDERED: GLUCOSE 4 GM CHEW PO PRN (16:35)
[2024-10-09 17:12] LABS: BASO # 0.0 10^3/uL (0.0-0.2); BASO % 0.3 % (0.0-1.0); EOS # 0.0 10^3/uL (0.0-0.5); EOS % 0.1 % (0.0-3.0); LYMPH # 0.9 10^3/uL (1.5-5.0); LYMPH % 6.1 % (24.0-44.0); MONO # 0.2 10^3/uL (0.0-0.8); MONO % 1.5 % (2.0-8.0); NEUTROPHILS # 13.2 10^3/uL (1.5-8.5); NEUTROPHILS % 91.3 % (36.0-66.0); PLATELET COUNT, AUTOMATED 308 10^3/uL (150-450)
[2024-10-09 17:38] LABS: INR 0.92
[2024-10-09] MEDS: INSULIN LISPRO (NovoLOG) PER UNIT SC SCH (17:46)
[2024-10-09] MEDS: PANTOPRAZOLE 40MG VIAL IV SCH (17:46)
[2024-10-09 17:47] VITALS: BP 212/109
[2024-10-09] MEDS: hydrALAZINE 20 MG/ML 1 ML VIAL IV PRN (17:47)
[2024-10-09] MEDS: ONDANSETRON 4MG 2ML VIAL IV PRN (17:47)
[2024-10-09] MEDS: PROMETHAZINE 25MG/ML 1ML VIAL IV PRN (19:09)
[2024-10-09 20:25] VITALS: BP 123/68; TEMP 97.9; O2SAT 95
[2024-10-09] MEDS: LanTUS (INSULIN GLARGINE INJ) 1 UNITS/0.01 ML SC SCH (21:00)
[2024-10-09 23:36] VITALS: BP 131/82; TEMP 98.1; O2SAT 93
[2024-10-10 03:47] VITALS: BP 150/79; TEMP 97.7; O2SAT 96
[2024-10-10] MEDS ORDERED: ENOXAPARIN 40 MG/0.4 ML SYRINGE (J1650 PER 10MG) SC SCH (09:00)
== END 2024-10-10 07:35 | disposition left against medical advice (07) | DRG 395 ==
LOC: M ED 12:54 → EDBD 12:54 → UNDOADMIN 14:37 → M ED INP 14:37 → M PCU 20:20
PROVIDERS: ADMIT Internal Medicine; ATTEND Internal Medicine
DX: K43.6 Other and unspecified ventral hernia with obstruction, without gangrene (principal); E11.9 Type 2 diabetes mellitus without complications; I10 Essential (primary) hypertension; E78.5 Hyperlipidemia, unspecified; G47.33 Obstructive sleep apnea (adult) (pediatric); E66.01 Morbid (severe) obesity due to excess calories; F25.9 Schizoaffective disorder, unspecified; F43.10 Post-traumatic stress disorder, unspecified; F43.20 Adjustment disorder, unspecified; I16.0 Hypertensive urgency; Z79.4 Long term (current) use of insulin; Z79.84 Long term (current) use of oral hypoglycemic drugs; Z79.85 Long-term (current) use of injectable non-insulin antidiabetic drugs; Z91.013 Allergy to seafood; Z91.018 Allergy to other foods

== ENCOUNTER 2024-10-11 01:28 | Inpatient (IN) | payer MEDICARE, MEDICAID ==
[~2024-10-11] VITALS: Ht 157.5 cm; Wt 110.6 kg
[~2024-10-11 01:28] MED LIST changes: -IBUP-1022 PO; -IBUP1TAB6 PO; +IBUP600T42 PO; +SFHIBU600 PO
[2024-10-11 03:34] LABS: BASO # 0.1 10^3/uL (0.0-0.2); BASO % 0.3 % (0.0-1.0); EOS # 0.0 10^3/uL (0.0-0.5); EOS % 0.1 % (0.0-3.0); LYMPH # 1.1 10^3/uL (1.5-5.0); LYMPH % 7.5 % (24.0-44.0); MONO # 0.3 10^3/uL (0.0-0.8); MONO % 1.8 % (2.0-8.0); NEUTROPHILS # 13.3 10^3/uL (1.5-8.5); NEUTROPHILS % 90.0 % (36.0-66.0); PLATELET COUNT, AUTOMATED 336 10^3/uL (150-450)
[2024-10-11 04:03] LABS: ALT/SGPT 18.0 U/L (7.0-40); AST/SGOT 21.0 U/L (<34)
[2024-10-11] MEDS: MORPHINE 4 MG/ML 1 ML VIAL IV PRN (05:28)
[2024-10-11] MEDS: ONDANSETRON 4MG 2ML VIAL IV ONE (05:28)
[2024-10-11] MEDS ORDERED: LIDOCAINE VISCOUS 2% EXT ONE (05:30)
[2024-10-11] MEDS ORDERED: LIDOCAINE 2% 5 ML JELLY UROJET As Ordered ONE (05:36)
[2024-10-11] MEDS: LIDOCAINE 2% 5 ML JELLY UROJET EXT ONE (05:41)
[2024-10-11] MEDS ORDERED: DEXTROSE 50% 50 ML SYRINGE IV PRN (06:15)
[2024-10-11] MEDS ORDERED: GLUCOSE 4 GM CHEW PO PRN (06:15)
[2024-10-11] MEDS ORDERED: GLUCAGON INJ 1 MG VIAL SC PRN (06:15)
[2024-10-11] MEDS ORDERED: hydrALAZINE 20 MG/ML 1 ML VIAL IV PRN ×2 (06:20→11:15)
[2024-10-11] MEDS: ONDANSETRON 4MG 2ML VIAL IV PRN (06:50)
[2024-10-11] MEDS: INSULIN LISPRO (NovoLOG) PER UNIT SC SCH (06:50)
[2024-10-11] MEDS ORDERED: HOME MED LIST COMPLETE! XX SCH (07:10)
[2024-10-11] MEDS ORDERED: LR 1,000 ML IV SCH (07:10)
[2024-10-11] MEDS ORDERED: MORPHINE 4 MG/ML 1 ML VIAL IV PRN (07:25)
[2024-10-11] MEDS: PANTOPRAZOLE 40MG VIAL IV SCH (08:08)
[2024-10-11] MEDS: LanTUS (INSULIN GLARGINE INJ) 1 UNITS/0.01 ML SC SCH (08:11)
[2024-10-11] MEDS: LR 1,000 ML IV SCH (08:13)
[2024-10-11 08:40] LABS: ALT/SGPT 19 U/L (7.0-40); AST/SGOT 17 U/L (<34); CALCIUM LEVEL 8.8 MG/DL (8.5-10.1); CARBON DIOXIDE LEVEL 24 MMOL/L (20-31); CHLORIDE LEVEL 97 MMOL/L (98-107); CREATININE FOR GFR 0.58 MG/DL (0.55-1.30); GLOMERULAR FILTRATION RATE > 90.0 (>51); POTASSIUM SERUM 2.8 MMOL/L (3.5-5.1); SODIUM LEVEL 138 MMOL/L (136-145)
[2024-10-11] MEDS: MAG SULF 1GM/100ML (MAG RUN) 1 GM in IV 1 EA IV SCH (09:26)
[2024-10-11] MEDS: ENOXAPARIN 40 MG/0.4 ML SYRINGE (J1650 PER 10MG) SC SCH (09:28)
[2024-10-11 09:57] LABS: INR 0.92
[2024-10-11 11:39] LABS: VENOUS BASE EXCESS 3.3 (-2.0-2.0); VENOUS HCO3 26.5 MMOL/L (23.0-27.0); VENOUS O2 SATURATION 97.0 % (60.0-80.0); VENOUS PARTIAL PRESSURE CO2 35.7 mmHg (38.0-50.0); VENOUS PARTIAL PRESSURE O2 90.9 mmHg (30.0-50.0); VENOUS PH 7.488 UNITS (7.330-7.430); VENOUS STANDARD HCO3 27.4 MMOL/L; VENOUS TOTAL CO2 27.6 MMOL/L (24.0-28.0)
[2024-10-11] MEDS: MORPHINE 2 MG/ML 1 ML VIAL IV PRN (11:54)
[2024-10-11] MEDS: KCL 10MEQ/100ML SWI (KRUN) 10 MEQ in IV 1 EA IV SCH (12:00)
[2024-10-11 14:35] VITALS: BP 142/75; TEMP 98; O2SAT 97
[2024-10-11 14:49] LABS: CALCIUM LEVEL 8.4 MG/DL (8.5-10.1); CARBON DIOXIDE LEVEL 26 MMOL/L (20-31); CHLORIDE LEVEL 100 MMOL/L (98-107); CREATININE FOR GFR 0.62 MG/DL (0.55-1.30); GLOMERULAR FILTRATION RATE > 90.0 (>51); MAGNESIUM LEVEL 2.0 MG/DL (1.8-2.4); POTASSIUM SERUM 3.7 MMOL/L (3.5-5.1); SODIUM LEVEL 141 MMOL/L (136-145)
[2024-10-11 16:29] VITALS: BP 126/61; TEMP 97.8; O2SAT 96
[2024-10-11 18:20] LABS: CALCIUM LEVEL 8.4 MG/DL (8.5-10.1); CARBON DIOXIDE LEVEL 30 MMOL/L (20-31); CHLORIDE LEVEL 101 MMOL/L (98-107); CREATININE FOR GFR 0.71 MG/DL (0.55-1.30); GLOMERULAR FILTRATION RATE > 90.0 (>51); POTASSIUM SERUM 2.9 MMOL/L (3.5-5.1); SODIUM LEVEL 142 MMOL/L (136-145)
[2024-10-11] MEDS: KCL 10MEQ/100ML SWI (KRUN) 100 ML IV SCH (18:59)
[2024-10-11 19:38] VITALS: BP 152/86; TEMP 97.5; O2SAT 96
[2024-10-11 23:26] VITALS: BP 124/65; TEMP 97.8; O2SAT 96
[2024-10-12 03:42] VITALS: BP 142/72; TEMP 97.5; O2SAT 97
[2024-10-12 06:00] LABS: PLATELET COUNT, AUTOMATED 321 10^3/uL (150-450)
[2024-10-12 06:24] LABS: ALT/SGPT 16 U/L (7.0-40); AST/SGOT 16 U/L (<34); CALCIUM LEVEL 8.6 MG/DL (8.5-10.1); CARBON DIOXIDE LEVEL 29 MMOL/L (20-31); CHLORIDE LEVEL 101 MMOL/L (98-107); CREATININE FOR GFR 0.75 MG/DL (0.55-1.30); GLOMERULAR FILTRATION RATE > 90.0 (>51); MAGNESIUM LEVEL 2.0 MG/DL (1.8-2.4); POTASSIUM SERUM 3.3 MMOL/L (3.5-5.1); SODIUM LEVEL 142 MMOL/L (136-145)
[2024-10-12 07:46] VITALS: BP 130/70; TEMP 97.8; O2SAT 96
[2024-10-12] MEDS: KCL 10MEQ/100ML SWI (KRUN) 10 MEQ in IV 1 EA IV SCH (09:23)
[2024-10-12 12:19] VITALS: BP 140/70; TEMP 97.8; O2SAT 97
[2024-10-12] MEDS ORDERED: POTASSIUM CHLORIDE 10MEQ/100ML SWI As Ordered ONE (15:28)
[2024-10-12 16:00] VITALS: BP 155/72; TEMP 97.7; O2SAT 97
[2024-10-12] MEDS ORDERED: METOCLOPRAMIDE 10 MG TAB PO PRN (17:05)
== END 2024-10-12 19:15 | disposition left against medical advice (07) | DRG 394 ==
LOC: M ED 01:28 → M ED INP 01:29 → M PCU 14:26 → OBSVTOIN 10-12 11:03
PROVIDERS: ADMIT Student in an Organized Health Care Education/Training Program; ATTEND Student in an Organized Health Care Education/Training Program
DX: K43.6 Other and unspecified ventral hernia with obstruction, without gangrene (principal); Z68.41 Body mass index [BMI] 40.0-44.9, adult; E87.3 Alkalosis; E11.9 Type 2 diabetes mellitus without complications; I10 Essential (primary) hypertension; E78.5 Hyperlipidemia, unspecified; G47.33 Obstructive sleep apnea (adult) (pediatric); F25.9 Schizoaffective disorder, unspecified; F43.10 Post-traumatic stress disorder, unspecified; F43.20 Adjustment disorder, unspecified; I16.0 Hypertensive urgency; Z79.4 Long term (current) use of insulin; Z79.84 Long term (current) use of oral hypoglycemic drugs; Z79.899 Other long term (current) drug therapy; Z91.013 Allergy to seafood; Z91.018 Allergy to other foods; F17.200 Nicotine dependence, unspecified, uncomplicated

== ENCOUNTER 2024-10-20 21:25 | Inpatient (IN) | payer MEDICARE, MEDICAID ==
[~2024-10-20] VITALS: Ht 157.5 cm; Wt 104.6 kg
[~2024-10-20 21:25] MED LIST changes: +IBUP-1022 PO; +IBUP1TAB6 PO; -IBUP600T42 PO; -SFHIBU600 PO
[2024-10-20 21:52] LABS: BASO # 0.1 10^3/uL (0.0-0.2); BASO % 0.3 % (0.0-1.0); EOS # 0.1 10^3/uL (0.0-0.5); EOS % 0.2 % (0.0-3.0); LYMPH # 1.8 10^3/uL (1.5-5.0); LYMPH % 8.3 % (24.0-44.0); MONO # 0.7 10^3/uL (0.0-0.8); MONO % 3.2 % (2.0-8.0); NEUTROPHILS # 18.5 10^3/uL (1.5-8.5); NEUTROPHILS % 87.5 % (36.0-66.0); PLATELET COUNT, AUTOMATED 390 10^3/uL (150-450)
[2024-10-20] MEDS: ACETAMINOPHEN *IV* 1,000 MG in IV 1 EA IV ONE (22:00)
[2024-10-20] MEDS: LR 1,000 ML IV ONE (22:00)
[2024-10-20 22:38] LABS: ALT/SGPT 17.0 U/L (7.0-40); AST/SGOT 15.0 U/L (<34); CALCIUM LEVEL 10.2 MG/DL (8.5-10.1); CARBON DIOXIDE LEVEL 25.0 MMOL/L (20-31); CHLORIDE LEVEL 99.0 MMOL/L (98-107); CREATININE FOR GFR 0.8 MG/DL (0.55-1.30); GLOMERULAR FILTRATION RATE 89.2 (>51); POTASSIUM SERUM 4.1 MMOL/L (3.5-5.1); SODIUM LEVEL 140.0 MMOL/L (136-145)
[2024-10-20] MEDS: ONDANSETRON 4MG 2ML VIAL IV ONE (22:55)
[2024-10-20] MEDS: FAMOTIDINE IV BAG 20 MG in IV 1 EA IV ONE (22:55)
[2024-10-20] MEDS ORDERED: ISOVUE-370 76% 100 ML VIAL As Ordered ONE (23:10)
[2024-10-21 00:14] LABS: KETONE, URINE AUTO RFX 1+ mg/dL (NEGATIVE); LEUKOCYTE ESTERASE UR AUTO RFX NEGATIVE (NEGATIVE); MUCUS, URINE RFX SMALL (NEGATIVE); NITRITE, URINE AUTO RFX NEGATIVE (NEGATIVE); RBC, URINE AUTO RFX 1 /HPF (0-3); SQUAM EPITHELIAL CELL UR AURFX 1 /HPF (0-6); WBC, URINE AUTO RFX 1 /HPF (0-3)
[2024-10-21 00:51] LABS: INR 0.89
[2024-10-21] MEDS: PIPERACILLIN/TAZOBACTAM SOD 3.375 GM in DEXTROSE 5% (D5W) ADV/MINI-BAG 50 ML IV ONE (02:17)
[2024-10-21] MEDS: LR 1,000 ML IV ONE ×2 (03:19)
[2024-10-21] MEDS ORDERED: GLUCAGON INJ 1 MG VIAL SC PRN (03:20)
[2024-10-21] MEDS ORDERED: DEXTROSE 50% 50 ML SYRINGE IV PRN (03:20)
[2024-10-21] MEDS ORDERED: MORPHINE 4 MG/ML 1 ML VIAL IV PRN (03:20)
[2024-10-21] MEDS ORDERED: GLUCOSE 4 GM CHEW PO PRN (03:20)
[2024-10-21] MEDS ORDERED: NALOXONE INJ 0.4 MG/1 ML VIAL IV PRN (03:20)
[2024-10-21] MEDS: LR 1,000 ML IV SCH (04:30)
[2024-10-21] MEDS: ACETAMINOPHEN *IV* 1,000 MG in IV 1 EA IV SCH (04:30)
[2024-10-21] MEDS: ONDANSETRON 4MG 2ML VIAL IV PRN (04:53)
[2024-10-21] MEDS: NS (Normal Saline) 0.9% 1,000 ML IV ONE (06:22)
[2024-10-21] MEDS: INSULIN LISPRO (NovoLOG) PER UNIT SC SCH (06:22)
[2024-10-21] MEDS: PIPERACILLIN/TAZOBACTAM SOD 3.375 GM in DEXTROSE 5% (D5W) ADV/MINI-BAG 50 ML IV SCH (08:58)
[2024-10-21] MEDS ORDERED: FLUTISP NARES (09:02)
[2024-10-21 09:17] LABS: PLATELET COUNT, AUTOMATED 321 10^3/uL (150-450)
[2024-10-21 09:38] LABS: ALT/SGPT 16 U/L (7.0-40); AST/SGOT 14 U/L (<34); CALCIUM LEVEL 7.8 MG/DL (8.5-10.1); CARBON DIOXIDE LEVEL 26 MMOL/L (20-31); CHLORIDE LEVEL 102 MMOL/L (98-107); CREATININE FOR GFR 0.59 MG/DL (0.55-1.30); GLOMERULAR FILTRATION RATE > 90.0 (>51); POTASSIUM SERUM 3.7 MMOL/L (3.5-5.1); SODIUM LEVEL 141 MMOL/L (136-145)
[2024-10-21] MEDS ORDERED: ATOR1TAB19 PO (09:53)
[2024-10-21] MEDS ORDERED: HOME MED LIST COMPLETE! XX SCH (09:55)
[2024-10-21 13:00] VITALS: BP 160/90; TEMP 97.5; O2SAT 96
[2024-10-21] MEDS: MORPHINE 2 MG/ML 1 ML VIAL IV PRN (16:04)
[2024-10-21 16:19] VITALS: O2SAT 94
[2024-10-21 16:24] VITALS: BP 162/90; TEMP 97.2; O2SAT 95
[2024-10-21 20:21] VITALS: BP 140/81; TEMP 97.2; O2SAT 95
[2024-10-21] MEDS: HEPARIN SOD 5000 UNITS/ML 1 ML VIAL/SYRINGE SQ SCH (22:22)
[2024-10-22 00:23] VITALS: BP 121/61; TEMP 97.3; O2SAT 95
[2024-10-22 03:40] VITALS: BP 143/90; TEMP 97.2; O2SAT 96
[2024-10-22 06:29] LABS: BASO # 0.0 10^3/uL (0.0-0.2); BASO % 0.4 % (0.0-1.0); EOS # 0.1 10^3/uL (0.0-0.5); EOS % 1.5 % (0.0-3.0); LYMPH # 1.5 10^3/uL (1.5-5.0); LYMPH % 19.8 % (24.0-44.0); MONO # 0.4 10^3/uL (0.0-0.8); MONO % 5.6 % (2.0-8.0); NEUTROPHILS # 5.4 10^3/uL (1.5-8.5); NEUTROPHILS % 72.3 % (36.0-66.0); PLATELET COUNT, AUTOMATED 291 10^3/uL (150-450)
[2024-10-22 06:56] LABS: CALCIUM LEVEL 7.8 MG/DL (8.5-10.1); CARBON DIOXIDE LEVEL 29 MMOL/L (20-31); CHLORIDE LEVEL 102 MMOL/L (98-107); CREATININE FOR GFR 0.77 MG/DL (0.55-1.30); GLOMERULAR FILTRATION RATE > 90.0 (>51); MAGNESIUM LEVEL 1.4 MG/DL (1.8-2.4); POTASSIUM SERUM 3.4 MMOL/L (3.5-5.1); SODIUM LEVEL 141 MMOL/L (136-145)
== END 2024-10-22 06:08 | disposition left against medical advice (07) | DRG 394 ==
LOC: M ED 21:25 → M ED INP 10-21 03:16 → M MSPAV 10-21 12:51
PROVIDERS: ADMIT Student in an Organized Health Care Education/Training Program; ATTEND Internal Medicine
DX: K43.6 Other and unspecified ventral hernia with obstruction, without gangrene (principal); Z68.41 Body mass index [BMI] 40.0-44.9, adult; E87.20 Acidosis, unspecified; E11.9 Type 2 diabetes mellitus without complications; G47.33 Obstructive sleep apnea (adult) (pediatric); I10 Essential (primary) hypertension; F25.9 Schizoaffective disorder, unspecified; Z79.84 Long term (current) use of oral hypoglycemic drugs; E78.5 Hyperlipidemia, unspecified; E66.01 Morbid (severe) obesity due to excess calories; F43.10 Post-traumatic stress disorder, unspecified; D72.829 Elevated white blood cell count, unspecified; Z79.899 Other long term (current) drug therapy; Z91.013 Allergy to seafood; Z91.018 Allergy to other foods

== ENCOUNTER → 2024-10-30 | Outpatient (REF) | payer MEDICARE, MEDICAID ==
[~2024-10-30] MED LIST changes: +ATOR1TAB19 PO; +FLUTISP NARES; -IBUP-1022 PO; -IBUP1TAB6 PO; +IBUP600T42 PO; +SFHIBU600 PO
[2024-10-30 14:11] LABS: CHOLESTEROL LEVEL 154.0 MG/DL (<200); CHOLESTEROL RISK RATIO 3.76 (<5); LDL CHOLESTEROL 68.5 MG/DL (<100); NON-HDL-C 113.1 MG/DL; TRIGLYCERIDES LEVEL 223.0 MG/DL (<150)
== END ==
LOC: M LAB REF 12:19
PROVIDERS: ATTEND Nurse Practitioner Family
DX: E78.1 Pure hyperglyceridemia (principal)

== ENCOUNTER 2025-01-11 13:08 | Inpatient (IN) | payer MEDICARE, MEDICAID ==
[~2025-01-11] VITALS: Ht 157.5 cm; Wt 101.9 kg
[2025-01-11] MEDS: MORPHINE 4 MG/ML 1 ML VIAL IV PRN (13:44)
[2025-01-11 13:45] LABS: BASO # 0.1 10^3/uL (0.0-0.2); BASO % 0.4 % (0.0-1.0); EOS # 0.3 10^3/uL (0.0-0.5); EOS % 1.7 % (0.0-3.0); LYMPH # 1.6 10^3/uL (1.5-5.0); LYMPH % 7.8 % (24.0-44.0); MONO # 0.5 10^3/uL (0.0-0.8); MONO % 2.5 % (2.0-8.0); NEUTROPHILS # 17.8 10^3/uL (1.5-8.5); NEUTROPHILS % 86.9 % (36.0-66.0); PLATELET COUNT, AUTOMATED 362 10^3/uL (150-450)
[2025-01-11] MEDS: NS 500 ML IV ONE (13:45)
[2025-01-11 14:20] LABS: ALT/SGPT 14.0 U/L (7.0-40); AST/SGOT 12.0 U/L (<34)
[2025-01-11] MEDS ORDERED: ISOVUE-370 76% 100 ML VIAL As Ordered ONE (14:33)
[2025-01-11] MEDS: HALOPERIDOL LACTATE 5 MG/ML VIAL IV ONE (14:47)
[2025-01-11] MEDS ORDERED: GLUCOSE 4 GM CHEW PO PRN (17:30)
[2025-01-11] MEDS ORDERED: MORPHINE 4 MG/ML 1 ML VIAL IV PRN (17:30)
[2025-01-11] MEDS ORDERED: DEXTROSE 50% 50 ML SYRINGE IV PRN (17:30)
[2025-01-11] MEDS ORDERED: GLUCAGON INJ 1 MG VIAL SC PRN (17:30)
[2025-01-11] MEDS ORDERED: OMEP40CA5 PO (17:48)
[2025-01-11] MEDS ORDERED: HOME MED LIST COMPLETE! XX SCH (17:50)
[2025-01-11] MEDS: NS (Normal Saline) 0.9% 1,000 ML IV SCH (17:58)
[2025-01-11] MEDS: PIPERACILLIN/TAZOBACTAM SOD 3.375 GM in DEXTROSE 5% (D5W) ADV/MINI-BAG 50 ML IV ONE (17:58)
[2025-01-11] MEDS: INSULIN LISPRO (NovoLOG) PER UNIT SC SCH (18:31)
[2025-01-11] MEDS: ONDANSETRON 4MG/2ML VIAL IV PRN (19:29)
[2025-01-11 20:34] VITALS: BP 165/77; TEMP 98.2; O2SAT 97
[2025-01-11] MEDS: HEPARIN SOD 5000 UNITS/ML 1 ML VIAL/SYRINGE SC SCH (23:17)
[2025-01-12] MEDS ORDERED: PIPERACILLIN/TAZOBACTAM SOD 3.375 GM in DEXTROSE 5% (D5W) ADV/MINI-BAG 50 ML IV SCH (02:00)
== END 2025-01-12 00:50 | disposition left against medical advice (07) | DRG 394 ==
LOC: EDBD 13:08 → M ED 13:08 → M ED INP 17:27 → M MS5PR 19:55
PROVIDERS: ADMIT Internal Medicine; ATTEND Internal Medicine
DX: K43.6 Other and unspecified ventral hernia with obstruction, without gangrene (principal); E87.20 Acidosis, unspecified; E78.5 Hyperlipidemia, unspecified; G47.33 Obstructive sleep apnea (adult) (pediatric); E66.01 Morbid (severe) obesity due to excess calories; E11.9 Type 2 diabetes mellitus without complications; F39 Unspecified mood [affective] disorder; D72.829 Elevated white blood cell count, unspecified; Z91.013 Allergy to seafood; Z91.018 Allergy to other foods; Z79.4 Long term (current) use of insulin; Z88.8 Allergy status to other drugs, medicaments and biological substances

== ENCOUNTER 2025-01-24 11:34 | Inpatient (IN) | payer MEDICARE, MEDICAID ==
[~2025-01-24 11:34] MED LIST changes: +OMEP40CA5 PO
[2025-01-24] MEDS: NS (Normal Saline) 0.9% 1,000 ML IV ONE (12:05)
[2025-01-24] MEDS: ONDANSETRON 4MG/2ML VIAL IV ONE (12:17)
[2025-01-24] MEDS: MORPHINE 4 MG/ML 1 ML VIAL IV ONE ×2 (12:18→17:05)
[2025-01-24 12:23] LABS: BASO # 0.1 10^3/uL (0.0-0.2); BASO % 0.4 % (0.0-1.0); EOS # 0.3 10^3/uL (0.0-0.5); EOS % 2.8 % (0.0-3.0); LYMPH # 1.4 10^3/uL (1.5-5.0); LYMPH % 11.9 % (24.0-44.0); MONO # 0.4 10^3/uL (0.0-0.8); MONO % 3.4 % (2.0-8.0); NEUTROPHILS # 9.3 10^3/uL (1.5-8.5); NEUTROPHILS % 81.0 % (36.0-66.0); PLATELET COUNT, AUTOMATED 361 10^3/uL (150-450)
[2025-01-24] MEDS: GASTROGRAFIN SOLUTION 30ML PO SCH (12:33)
[2025-01-24 12:57] LABS: C REACTIVE PROTEIN QUANTITATIV 0.88 MG/DL (<1.0)
[2025-01-24 12:58] LABS: ACETONE/KETONE 0.31 MMOL/L (0.02-0.27); ALT/SGPT 16 U/L (7.0-40); AST/SGOT 11 U/L (<34); CALCIUM LEVEL 9.2 MG/DL (8.5-10.1); CARBON DIOXIDE LEVEL 27 MMOL/L (20-31); CHLORIDE LEVEL 102 MMOL/L (98-107); CREATININE FOR GFR 0.69 MG/DL (0.55-1.30); GLOMERULAR FILTRATION RATE > 90.0 (>51); POTASSIUM SERUM 3.7 MMOL/L (3.5-5.1); SODIUM LEVEL 141 MMOL/L (136-145)
[2025-01-24] MEDS ORDERED: ISOVUE-370 76% 100 ML VIAL As Ordered ONE (13:47)
[2025-01-24] MEDS ORDERED: HOME MED LIST COMPLETE! XX SCH (15:20)
[2025-01-24 16:05] LABS: VENOUS BASE EXCESS -0.1 (-2.0-2.0); VENOUS HCO3 24.2 MMOL/L (23.0-27.0); VENOUS O2 SATURATION 95.9 % (60.0-80.0); VENOUS PARTIAL PRESSURE CO2 38.5 mmHg (38.0-50.0); VENOUS PARTIAL PRESSURE O2 79.9 mmHg (30.0-50.0); VENOUS PH 7.417 UNITS (7.330-7.430); VENOUS STANDARD HCO3 24.4 MMOL/L; VENOUS TOTAL CO2 25.4 MMOL/L (24.0-28.0)
[2025-01-24 16:38] LABS: CK-MB VALUE MASS 1.4 NG/ML (<3.6)
[2025-01-24 16:44] LABS: CPK CREATINE PHOSPHOKINASE 53.0 U/L (34-145); MB/CK RELATIVE INDEX 2.64 (< OR =4)
[2025-01-24] MEDS ORDERED: KETOROLAC 30 MG/ML 1 ML VIAL IV PRN (17:20)
[2025-01-24] MEDS ORDERED: MORPHINE 4 MG/ML 1 ML VIAL IV PRN (17:20)
[2025-01-24] MEDS ORDERED: GLUCOSE 4 GM CHEW PO PRN (17:20)
[2025-01-24] MEDS ORDERED: GLUCAGON INJ 1 MG VIAL SC PRN (17:20)
[2025-01-24] MEDS ORDERED: DEXTROSE 50% 50 ML SYRINGE IV PRN (17:20)
[2025-01-24 18:00] VITALS: BP 154/89
[2025-01-24] MEDS: hydrALAZINE 20 MG/ML 1 ML VIAL IV SCH (18:00)
[2025-01-24] MEDS: LR 1,000 ML IV SCH (18:00)
[2025-01-24] MEDS: INSULIN LISPRO (NovoLOG) PER UNIT SC SCH (18:45)
[2025-01-24 19:44] VITALS: BP 184/86; TEMP 97.6; O2SAT 94
[2025-01-24 20:00] VITALS: BP 183/95; O2SAT 93
[2025-01-24] MEDS: MORPHINE 2 MG/ML 1 ML VIAL IV PRN (20:02)
[2025-01-24] MEDS ORDERED: PANTOPRAZOLE 40MG VIAL IV SCH (21:00)
[2025-01-24] MEDS ORDERED: ENOXAPARIN 40 MG/0.4 ML SYRINGE (J1650 PER 10MG) SC SCH (21:00)
== END 2025-01-24 23:05 | disposition left against medical advice (07) | DRG 390 ==
LOC: M ED 11:34 → EDBD 11:34 → M ED INP 17:17 → M ICU 19:44
PROVIDERS: ADMIT Student in an Organized Health Care Education/Training Program; ATTEND Student in an Organized Health Care Education/Training Program
DX: K56.600 Partial intestinal obstruction, unspecified as to cause (principal); I16.0 Hypertensive urgency; E11.9 Type 2 diabetes mellitus without complications; F43.10 Post-traumatic stress disorder, unspecified; K44.9 Diaphragmatic hernia without obstruction or gangrene; F32.A Depression, unspecified; K21.9 Gastro-esophageal reflux disease without esophagitis; E66.01 Morbid (severe) obesity due to excess calories; I10 Essential (primary) hypertension; Z87.891 Personal history of nicotine dependence; Z79.4 Long term (current) use of insulin; Z79.899 Other long term (current) drug therapy; Z91.013 Allergy to seafood; Z91.018 Allergy to other foods

== ENCOUNTER 2025-02-01 18:48 | Inpatient (IN) | payer MEDICARE, MEDICAID ==
[~2025-02-01] VITALS: Ht 157.5 cm; Wt 113.9 kg
[2025-02-01] MEDS: HALOPERIDOL LACTATE 5 MG/ML VIAL IV ONE (19:24)
[2025-02-01 20:04] LABS: BASO # 0.0 10^3/uL (0.0-0.2); BASO % 0.3 % (0.0-1.0); EOS # 0.2 10^3/uL (0.0-0.5); EOS % 1.6 % (0.0-3.0); LYMPH # 1.3 10^3/uL (1.5-5.0); LYMPH % 10.0 % (24.0-44.0); MONO # 0.6 10^3/uL (0.0-0.8); MONO % 4.5 % (2.0-8.0); NEUTROPHILS # 10.9 10^3/uL (1.5-8.5); NEUTROPHILS % 83.1 % (36.0-66.0); PLATELET COUNT, AUTOMATED 349 10^3/uL (150-450)
[2025-02-01] MEDS: HYDROMORPHONE HCL 0.5 MG/0.5 ML SYRINGE IV PRN (20:04)
[2025-02-01 20:27] LABS: INR 0.86
[2025-02-01 20:40] LABS: ALT/SGPT 28 U/L (7.0-40); AST/SGOT 22 U/L (<34); CALCIUM LEVEL 8.7 MG/DL (8.5-10.1); CARBON DIOXIDE LEVEL 28 MMOL/L (20-31); CHLORIDE LEVEL 101 MMOL/L (98-107); CREATININE FOR GFR 0.64 MG/DL (0.55-1.30); GLOMERULAR FILTRATION RATE > 90.0 (>51); POTASSIUM SERUM 3.5 MMOL/L (3.5-5.1); SODIUM LEVEL 141 MMOL/L (136-145)
[2025-02-01] MEDS ORDERED: ISOVUE-370 76% 100 ML VIAL As Ordered ONE (20:41)
[2025-02-01] MEDS: ONDANSETRON 4MG/2ML VIAL IV ONE (21:51)
[2025-02-01] MEDS: NS (Normal Saline) 0.9% 1,000 ML IV SCH (22:22)
[2025-02-01 22:39] LABS: KETONE, URINE AUTO RFX NEGATIVE (NEGATIVE); LEUKOCYTE ESTERASE UR AUTO RFX NEGATIVE (NEGATIVE); NITRITE, URINE AUTO RFX NEGATIVE (NEGATIVE); RBC, URINE AUTO RFX 2 /HPF (0-3); SQUAM EPITHELIAL CELL UR AURFX 1 /HPF (0-6); WBC, URINE AUTO RFX 0 /HPF (0-3)
[2025-02-01] MEDS: hydrALAZINE 20 MG/ML 1 ML VIAL IV STA (23:34)
[2025-02-01] MEDS ORDERED: GLUCOSE 4 GM CHEW PO PRN (23:55)
[2025-02-01] MEDS ORDERED: GLUCAGON INJ 1 MG VIAL SC PRN (23:55)
[2025-02-01] MEDS ORDERED: DEXTROSE 50% 50 ML SYRINGE IV PRN (23:55)
[2025-02-02] MEDS: METOPROLOL 5 MG/5 ML VIAL IV SCH (00:45)
[2025-02-02] MEDS: INSULIN LISPRO (NovoLOG) PER UNIT SC SCH (00:45)
[2025-02-02] MEDS: HYDROMORPHONE HCL 0.5 MG/0.5 ML SYRINGE IV PRN (00:46)
[2025-02-02] MEDS: NS (Normal Saline) 0.9% 1,000 ML IV SCH (00:47)
[2025-02-02] MEDS: ONDANSETRON 4MG/2ML VIAL IV PRN (03:20)
[2025-02-02] MEDS: HALOPERIDOL LACTATE 5 MG/ML VIAL IV STA (04:51)
[2025-02-02 08:09] LABS: BASO # 0.0 10^3/uL (0.0-0.2); BASO % 0.1 % (0.0-1.0); EOS # 0.1 10^3/uL (0.0-0.5); EOS % 0.5 % (0.0-3.0); LYMPH # 0.8 10^3/uL (1.5-5.0); LYMPH % 5.4 % (24.0-44.0); MONO # 0.8 10^3/uL (0.0-0.8); MONO % 5.0 % (2.0-8.0); NEUTROPHILS # 13.5 10^3/uL (1.5-8.5); NEUTROPHILS % 88.5 % (36.0-66.0); PLATELET COUNT, AUTOMATED 425 10^3/uL (150-450)
[2025-02-02] MEDS ORDERED: PANT40TA29 PO (08:45)
[2025-02-02] MEDS ORDERED: LANTINJ4 SC (08:45)
[2025-02-02] MEDS ORDERED: CARV6.25 PO (08:45)
[2025-02-02] MEDS ORDERED: HOME MED LIST COMPLETE! XX SCH (08:45)
[2025-02-02 08:48] LABS: C REACTIVE PROTEIN QUANTITATIV 1.50 MG/DL (<1.0)
[2025-02-02] MEDS: ENOXAPARIN 40 MG/0.4 ML SYRINGE (J1650 PER 10MG) SC SCH (08:54)
[2025-02-02] MEDS: PANTOPRAZOLE 40MG VIAL IV SCH (08:55)
[2025-02-02 09:00] LABS: ALT/SGPT 24 U/L (7.0-40); AST/SGOT 16 U/L (<34); CALCIUM LEVEL 8.7 MG/DL (8.5-10.1); CARBON DIOXIDE LEVEL 28 MMOL/L (20-31); CHLORIDE LEVEL 97 MMOL/L (98-107); CREATININE FOR GFR 0.55 MG/DL (0.55-1.30); GLOMERULAR FILTRATION RATE > 90.0 (>51); MAGNESIUM LEVEL 1.4 MG/DL (1.8-2.4); POTASSIUM SERUM 3.8 MMOL/L (3.5-5.1); SODIUM LEVEL 138 MMOL/L (136-145)
[2025-02-02 12:57] VITALS: BP 143/80; TEMP 97.3; O2SAT 94
[2025-02-02] MEDS: MAG SULF 1GM/100ML (MAG RUN) 1 GM in IV 1 EA IV SCH (13:31)
[2025-02-02 15:25] VITALS: BP 113/56; TEMP 96.9; O2SAT 95
[2025-02-02 19:45] VITALS: BP 99/56; TEMP 97.1; O2SAT 95
[2025-02-02 20:07] VITALS: BP 98/50; O2SAT 93
[2025-02-02 20:13] VITALS: BP 84/50
[2025-02-02 23:48] VITALS: BP 126/58; TEMP 97.2; O2SAT 96
[2025-02-03] VITALS (10 sets, daily range): BP systolic 102–130; BP diastolic 55–70; TEMP 96.9–97.4; O2SAT 95–98
[2025-02-03] MEDS: ACETAMINOPHEN *IV* 1,000 MG in IV 1 EA IV ONE (02:07)
[2025-02-03 05:53] LABS: BASO # 0.0 10^3/uL (0.0-0.2); BASO % 0.3 % (0.0-1.0); EOS # 0.3 10^3/uL (0.0-0.5); EOS % 2.4 % (0.0-3.0); LYMPH # 1.6 10^3/uL (1.5-5.0); LYMPH % 14.0 % (24.0-44.0); MONO # 0.7 10^3/uL (0.0-0.8); MONO % 6.0 % (2.0-8.0); NEUTROPHILS # 8.9 10^3/uL (1.5-8.5); NEUTROPHILS % 77.0 % (36.0-66.0); PLATELET COUNT, AUTOMATED 411 10^3/uL (150-450)
[2025-02-03 06:18] LABS: ALT/SGPT 19.0 U/L (7.0-40); AST/SGOT 11.0 U/L (<34); CALCIUM LEVEL 8.8 MG/DL (8.5-10.1); CARBON DIOXIDE LEVEL 30.0 MMOL/L (20-31); CHLORIDE LEVEL 100.0 MMOL/L (98-107); CREATININE FOR GFR 0.98 MG/DL (0.55-1.30); GLOMERULAR FILTRATION RATE 69.9 (>51); POTASSIUM SERUM 3.7 MMOL/L (3.5-5.1); SODIUM LEVEL 139.0 MMOL/L (136-145)
[2025-02-03 08:20] LABS: MAGNESIUM LEVEL 2.5 MG/DL (1.8-2.4)
[2025-02-03] MEDS ORDERED: PERCOCET 5MG/325MG TAB PO PRN ×2 (09:40)
[2025-02-03] MEDS ORDERED: MORPHINE 2 MG/ML 1 ML VIAL IV ONE (15:00)
== END 2025-02-03 14:46 | disposition left against medical advice (07) | DRG 394 ==
LOC: M ED 18:48 → M ED INP 23:51 → M PCU 02-02 12:49
PROVIDERS: ADMIT Internal Medicine; ATTEND Student in an Organized Health Care Education/Training Program
DX: K43.6 Other and unspecified ventral hernia with obstruction, without gangrene (principal); Z68.42 Body mass index [BMI] 45.0-49.9, adult; E11.9 Type 2 diabetes mellitus without complications; K21.9 Gastro-esophageal reflux disease without esophagitis; I10 Essential (primary) hypertension; E66.01 Morbid (severe) obesity due to excess calories; E83.42 Hypomagnesemia; Z79.4 Long term (current) use of insulin; F43.10 Post-traumatic stress disorder, unspecified; F25.9 Schizoaffective disorder, unspecified; Z91.199 Patient's noncompliance with other medical treatment and regimen due to unspecified reason; Z79.899 Other long term (current) drug therapy; Z91.013 Allergy to seafood; Z91.018 Allergy to other foods

== ENCOUNTER 2025-02-03 21:35 | Inpatient (IN) | payer MEDICARE, MEDICAID ==
[~2025-02-03] VITALS: Ht 157.5 cm; Wt 111.4 kg
[~2025-02-03 21:35] MED LIST changes: +CARV6.25 PO; +LANTINJ4 SC
[2025-02-03] MEDS: NS (Normal Saline) 0.9% 1,000 ML IV SCH (22:31)
[2025-02-03] MEDS: ONDANSETRON 4MG/2ML VIAL IV ONE (22:31)
[2025-02-03] MEDS: MORPHINE 4 MG/ML 1 ML VIAL IV ONE (22:31)
[2025-02-03 23:08] LABS: BASO # 0.0 10^3/uL (0.0-0.2); BASO % 0.2 % (0.0-1.0); EOS # 0.1 10^3/uL (0.0-0.5); EOS % 0.6 % (0.0-3.0); LYMPH # 0.8 10^3/uL (1.5-5.0); LYMPH % 4.9 % (24.0-44.0); MONO # 0.7 10^3/uL (0.0-0.8); MONO % 4.1 % (2.0-8.0); NEUTROPHILS # 15.0 10^3/uL (1.5-8.5); NEUTROPHILS % 89.8 % (36.0-66.0); PLATELET COUNT, AUTOMATED 405 10^3/uL (150-450)
[2025-02-03 23:41] LABS: ALT/SGPT 19.0 U/L (7.0-40); AST/SGOT 17.0 U/L (<34); CALCIUM LEVEL 8.4 MG/DL (8.5-10.1); CARBON DIOXIDE LEVEL 25.0 MMOL/L (20-31); CHLORIDE LEVEL 100.0 MMOL/L (98-107); CREATININE FOR GFR 0.92 MG/DL (0.55-1.30); GLOMERULAR FILTRATION RATE 75.4 (>51); MAGNESIUM LEVEL 2.0 MG/DL (1.8-2.4); POTASSIUM SERUM 3.4 MMOL/L (3.5-5.1); SODIUM LEVEL 136.0 MMOL/L (136-145)
[2025-02-03] MEDS ORDERED: ISOVUE-370 76% 100 ML VIAL As Ordered ONE (23:57)
[2025-02-04] MEDS: MORPHINE 4 MG/ML 1 ML VIAL IV PRN (00:19)
[2025-02-04] MEDS: NS (Normal Saline) 0.9% 1,000 ML IV SCH (03:35)
[2025-02-04] MEDS ORDERED: ONDANSETRON 4MG/2ML VIAL IV PRN (03:35)
[2025-02-04] MEDS ORDERED: DEXTROSE 50% 50 ML SYRINGE IV PRN (04:30)
[2025-02-04] MEDS ORDERED: GLUCAGON INJ 1 MG VIAL SC PRN (04:30)
[2025-02-04] MEDS ORDERED: GLUCOSE 4 GM CHEW PO PRN (04:30)
[2025-02-04] MEDS: MORPHINE 2 MG/ML 1 ML VIAL IV PRN (05:15)
[2025-02-04] MEDS: INSULIN LISPRO (NovoLOG) PER UNIT SC SCH (06:15)
[2025-02-04 08:15] LABS: BASO # 0.0 10^3/uL (0.0-0.2); BASO % 0.4 % (0.0-1.0); EOS # 0.2 10^3/uL (0.0-0.5); EOS % 1.6 % (0.0-3.0); LYMPH # 1.4 10^3/uL (1.5-5.0); LYMPH % 12.2 % (24.0-44.0); MONO # 0.7 10^3/uL (0.0-0.8); MONO % 6.4 % (2.0-8.0); NEUTROPHILS # 8.8 10^3/uL (1.5-8.5); NEUTROPHILS % 79.0 % (36.0-66.0); PLATELET COUNT, AUTOMATED 393 10^3/uL (150-450)
[2025-02-04] MEDS ORDERED: HOME MED LIST COMPLETE! XX SCH (08:30)
[2025-02-04 08:53] LABS: CALCIUM LEVEL 7.7 MG/DL (8.5-10.1); CARBON DIOXIDE LEVEL 23 MMOL/L (20-31); CHLORIDE LEVEL 103 MMOL/L (98-107); CREATININE FOR GFR 0.69 MG/DL (0.55-1.30); GLOMERULAR FILTRATION RATE > 90.0 (>51); MAGNESIUM LEVEL 1.8 MG/DL (1.8-2.4); POTASSIUM SERUM 5.2 MMOL/L (3.5-5.1); SODIUM LEVEL 138 MMOL/L (136-145)
[2025-02-04] MEDS ORDERED: ENOXAPARIN 40 MG/0.4 ML SYRINGE (J1650 PER 10MG) SC SCH (09:00)
[2025-02-04 12:30] VITALS: BP 107/55; TEMP 95.3; O2SAT 95
[2025-02-04 14:45] VITALS: TEMP 97.4; TEMP 97.6
[2025-02-04] MEDS: ENOXAPARIN 40 MG/0.4 ML SYRINGE (J1650 PER 10MG) SC SCH (21:00)
[2025-02-04 22:49] VITALS: TEMP 97.1
[2025-02-05 01:01] VITALS: BP 135/61
[2025-02-05 01:15] VITALS: O2SAT 99
== END 2025-02-05 04:17 | disposition left against medical advice (07) | DRG 392 ==
LOC: M ED 21:35 → M ED INP 02-04 03:25
PROVIDERS: ADMIT Student in an Organized Health Care Education/Training Program; ATTEND Student in an Organized Health Care Education/Training Program
DX: K44.0 Diaphragmatic hernia with obstruction, without gangrene (principal); Z68.41 Body mass index [BMI] 40.0-44.9, adult; E11.9 Type 2 diabetes mellitus without complications; I10 Essential (primary) hypertension; F20.9 Schizophrenia, unspecified; K21.9 Gastro-esophageal reflux disease without esophagitis; E66.01 Morbid (severe) obesity due to excess calories; F43.10 Post-traumatic stress disorder, unspecified; Z91.199 Patient's noncompliance with other medical treatment and regimen due to unspecified reason; F41.9 Anxiety disorder, unspecified; Z79.899 Other long term (current) drug therapy; Z79.4 Long term (current) use of insulin; Z91.013 Allergy to seafood; Z91.018 Allergy to other foods; E03.9 Hypothyroidism, unspecified; G47.33 Obstructive sleep apnea (adult) (pediatric)